=== PATIENT | male | born 1930 | race Caucasian/White ===

== ENCOUNTER 2017-02-16 10:15 | Inpatient (IN) | payer MEDICARE, OTHER ==
--- NOTE | 2017-02-16 11:21 | RAD ---
RADIOGRAPH RIGHT FOOT THREE VIEWS: Date: 02-16-17 History: 86-year-old male status post acute traumatic injury to the right foot. Comparison: None available. FINDINGS: There is a minimally displaced fracture at the medial aspect of the head of the first proximal phala nx. The vertical component extends to the first interphalangeal joint surface without step off. The medial component has a minimal, 1 mm step off at the cortical surface of the neck of the first proxi mal phalanx. There is no dislocation. There is a transversely oriented fracture at the proximal metaphysis of the fifth proximal phalanx, with minimal dorsal angulation of the distal fragment. Displaced tiny chip fracture fragments are de monstrated at the volar soft tissues adjacent to this fracture. There is no dislocation. No other fracture is identified. IMPRESSION: 1. Acute, traumatic, closed, essentially nondisplaced fracture at the medial aspect of the head of f irst proximal phalanx, with intraarticular component. 2. Slightly angulated, acute, traumatic, closed transverse fracture at proximal metadiaphysis of fif th proximal phalanx. POS: [facility]
[2017-02-16] MEDS ORDERED: Lidocaine 1% PF 5 ML VIAL ONE (11:32)
[2017-02-16 11:54] LABS: Troponin I 0.081 ng/mL (< 0.028)
[2017-02-16 12:01] LABS: Anion Gap 19 mmol/L (10-20); BUN (Urea Nitrogen) 98 mg/dL (8.4-25.7); Calc. Creatinine Clearance 0 mL/min (70-130); Calcium 9.8 mg/dL (7.8-10.44); Carbon Dioxide 32 mmol/L (23-31); Chloride 88 mmol/L (98-107); Estimated GFR-MDRD 12
[2017-02-16] MEDS ORDERED: Bacitracin Zinc 1 Packet ONE (12:07)
[2017-02-16 12:28] LABS: #Basophils 0.1 thou/uL (0.0-0.2); #Eosinphils 0.3 thou/uL (0.0-0.7); #Lymphocytes 2.2 thou/uL (1.20-3.40); #Monocytes 1.2 thou/uL (0.11-0.59); #Neutrophils 7.3 thou/uL (1.40-6.50); %Eosinophils 2.6 % (0.0-10.0); %Lymphocytes 19.9 % (21.0-51.0); Red Blood Cell (RBC) Count 5.84 mill/uL (4.70-6.10); White Blood Cell (WBC) Count 11.2 thou/uL (4.8-10.8)
--- NOTE | 2017-02-16 12:51 | CT ---
CT BRAIN WITHOUT CONTRAST: Date: 02/16/17 HISTORY: Hit head in a fall. Anticoagulation. COMPARISON: CT brain dated 05/01/16. FINDINGS: No acute territorial infarct or hemorrhage. No midline shift or mass effect. Mild atrophy. Paranasal sinuses and mastoids are clear. The calvarium is intact. Mandibular rami are intact. Calvarium is intact. Moderate degenerative disease of the temporomandibular joints. IMPRESSION: No acute post-traumatic sequelae. No hemorrhage. POS: [facility]
[2017-02-16 13:27] LABS: Bilirubin Negative (Negative); Blood, Urine Negative (Negative); Glucose, Urine (Dipstick) Negative (Negative); Ketone, Urine Negative (Negative); Nitrite Negative (Negative); Protein, Urine (Dipstick) Negative (Neg-Trace); Urobilinogen 0.2 mg/dL (0.2-1.0)
[2017-02-16 13:35] LABS: Bacteria/HPF 1+ HPF (None Seen); RBC/HPF None Seen HPF (0-3); Squamous Epithelial 0-3 HPF (0-3)
--- NOTE | 2017-02-16 13:46 | RAD ---
PORTABLE CHEST ONE VIEW: Date: 02-16-17 Time: 1:14 p.m. History: Right fifth toe injury, consistent with infection. Fall. Comparison: 12-23-16 FINDINGS: The heart size is borderline but stable. Left side AICD remains in place. The lungs are expanded wit hout focal areas of consolidation, pneumothorax or pleural effusions. IMPRESSION: No radiographic evidence of acute cardiopulmonary process. POS: [facility]
[2017-02-16] MEDS ORDERED: Sodium Chloride 0.9% 1,000 ML IV SCH ×2 (16:51→17:03)
[2017-02-16 16:58] VITALS: BMI 31.6
[2017-02-16] MEDS ORDERED: Ondansetron ODT 4 MG TAB PO PRN (17:03)
[2017-02-16] MEDS ORDERED: HYDROcodone/Acetaminophen 5/325 mg Tablet PO PRN (17:03)
[2017-02-16] MEDS ORDERED: Acetaminophen 325 MG TAB PO PRN (17:03)
[2017-02-16] MEDS ORDERED: Cyclobenzaprine 10 MG TAB PO PRN (17:03)
--- NOTE | 2017-02-16 17:57 | HP ---
DATE OF ADMISSION: 02/16/2017 PRIMARY CARE PHYSICIAN: Marcio Duncan M.D. CODE STATUS: FULL, advanced care planning was discussed with the patient. CHIEF COMPLAINT: Fall. HISTORY OF PRESENT ILLNESS: Mr. 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 He suddenly felt himself falling. He denied any presyncope or sync ope. No dizziness or vertigo and no dysequilibrium. He was able to get himself up and noticed that his toe on his right foot was sticking straight up and he had some laceration and bleeding. He hugo t to the emergency department for evaluation. There, he was found to have increased creatinine of 4 .61 above his baseline around 3, potassium was a little bit low at 3.0, white blood cell count w as 11.2 with a hematocrit of 17.9, and per the ER doctor, he was orthostatic during evaluation. He was subsequently sent here for further evaluation. He denies any fevers or chills, no chest pain or shortness of breath, no nausea or vomiting, no diar jelani or constipation. PAST MEDICAL HISTORY: 1. Hypopituitarism. 2. Past history of pulmonary embolus. 3. History of prostate cancer. 4. Recurrent urinary tract infections. 5. Chronic kidney disease 4, followed by Dr. Mckeon. 6. Hypothyroidism. 7. Hyperlipidemia. 8. Hypertension. 9. Chronic systolic congestive heart failure with ejection fraction around 40%. PAST SURGICAL HISTORY: Includes: 1. Radical prostatectomy. 2. Penile implant. 3. Transsphenoidal pituitary resection. 4. AICD placement. 5. PTCA. 6. Colonoscopy. 7. Prostate biopsy remotely. HOME MEDICATIONS: 1. VESIcare 5 mg daily. 2. Torsemide 100 mg daily. 3. BuSpar 7.5 mg p.o. b.i.d. 4. Coumadin 4 mg on Wednesday, Wednesday, and Wednesday, 5 mg every other day. 5. Testosterone 150 mg IM every 2 weeks. 6. Levothyroxine 100 mcg p.o. daily. 7. Hydrocortisone 20 mg p.o. q.a.m. and 10 mg p.o. q.p.m. 8. Coreg 3.125 mg p.o. b.i.d. 9. Tums as needed. 10. Tylenol as needed. 11. Metolazone 5 mg p.o. daily with his torsemide. 12. Ranitidine 150 mg p.o. b.i.d. ALLERGIES: CIPRO, IODINE, NITROFURANTOIN and SULFA. FAMILY HISTORY: Negative for clotting or bleeding disorder, no immune dysfunction. SOCIAL HISTORY: Negative for habits x3. He did have a past history of tobacco, but quit almost 50 years ago. PHYSICAL EXAMINATION: VITAL SIGNS: In the emergency department, temperature on arrival 97.8, pulse 80, blood pressure 124 /61, respiratory rate 20, satting 95% on room air. Pain was 7/10 on arrival. Orthostatic showed a blood pressure of 125/68 when lying with a pulse of 82, dropping to 105/60 when sitting and 97/50 wh en standing, so a total drop from lying to standing of systolic 28 over diastolic 18 points. Pulse remained the same, but he is paced. GENERAL: The patient is awake. He is alert. He is oriented x3. He is an obese white male, appear s to be in no acute distress. HEENT: Normocephalic, atraumatic. Pupils are equal and reactive bilaterally, mucous membranes are moist. There are no visible lesions and no thrush. LUNGS: Clear. He has no wheezing, rales or rhonchi. No prolonged expiratory phase. Adequate air movement and symmetrical chest excursion. CARDIOVASCULAR: He is regular, normal S1 and S2. I do not appreciate murmurs. ABDOMEN: Obese, it is nontender, nondistended with normoactive bowel sounds. There is no rebound, rigidity or guarding. EXTREMITIES: Show no cyanosis, no clubbing with trace bilateral lower extremity edema. His right f oot is currently in a walking boot and wrapped, it was not unwrapped for visualization. MUSCULOSKELETAL: Large joints are normal to inspection without any inflamed or erythematous joints. There are no palpable joint effusions. In the left lower back and the paraspinous musculature, he does have a 3 to 4 cm area of firmness either hematoma or spasm of the muscle. NEUROLOGIC: Cranial nerves II through XII to be grossly intact with no focal neurologic deficits an d 5/5 strength. SKIN: Otherwise, warm, moist and well perfused without rashes or lesions. LABORATORY DATA: Basic metabolic profile is normal except for potassium of 3.0 and a creatinine of 4.61 up from 3.26 back in 12/2016. Troponin I was slightly elevated at 0.081, hemoglobin is 17.9, h ematocrit of 55 and platelets of 119 with a white blood cell count of 11.2. Urinalysis shows 4 to 6 white blood cells with small leukocyte esterase and 1+ bacteria. IMAGING: Chest x-ray was unremarkable. Brain CT showed temporomandibular joint osteoarthritis and mild atrophy. Foot x-rays showed acute n ondisplaced fracture of the right medial first proximal phalanx and fifth proximal phalanx of the ri ght foot. ASSESSMENT AND PLAN: 1. Fall from same level: Likely an orthostatic episode. He denies feeling lightheaded or like he was going to pass out, and denied losing consciousness. He did have a significant drop in blood pre ssure when changing position. He was micturating at that time, so certainly could be a labile blood pressure episode. We will lightly hydrate him overnight, we will hold his diuretics tonight. We w ill check orthostatic with blood pressures tonight and in the morning. 2. Acute kidney injury, on chronic kidney disease 4: Creatinine is 4.61. Potassium is low, we regina l not replace that in the setting. We will ask Dr. Mckeon to see the patient in the morning, I nam pect with light hydration this should improve and may just be over diuresis. 3. Hypopituitarism: The patient takes hydrocortisone replacement: Certainly it could be adrenal i nsufficient leading to autonomic instability. We will continue his hydrocortisone. We will continu e his thyroid replacement. 4. History of hypertension: We will hold his Coreg. We will hold his diuretics for now. We will reevaluate in the morning. 5. Hyperlipidemia: Not currently on therapy. 6. Gastroesophageal reflux disease, on Zantac. We will replace with famotidine for now. 7. Recurrent urinary tract infection. The patient does have some slight pyuria with a small amount of bacteria. We will follow up on the culture. I do think this is related.
[2017-02-16] MEDS: Carvedilol 3.125 MG TAB PO SCH (20:41)
[2017-02-16] MEDS: HYDROcodone/Acetaminophen 10/325 mg Tablet PO PRN (20:56)
[2017-02-17] MEDS: HYDROcodone/Acetaminophen 10/325 mg Tablet PO PRN ×2 (01:25→08:44)
[2017-02-17 04:52] LABS: #Eosinphils 0.3 thou/uL (0.0-0.7); #Lymphocytes 1.8 thou/uL (1.20-3.40); #Neutrophils 5.1 thou/uL (1.40-6.50); %Basophils 0.5 % (0.0-1.0); %Lymphocytes 22.1 % (21.0-51.0); %Monocytes 11.7 % (0.0-10.0); Hematocrit 51.6 % (42.0-52.0); Mean Platelet Volume 9.3 fL (7.4-10.4); Red Blood Cell (RBC) Count 5.41 mill/uL (4.70-6.10); White Blood Cell (WBC) Count 8.2 thou/uL (4.8-10.8)
[2017-02-17 05:01] LABS: Anion Gap 14 mmol/L (10-20); BUN (Urea Nitrogen) 99 mg/dL (8.4-25.7); Calc. Creatinine Clearance 17 mL/min (70-130); Carbon Dioxide 33 mmol/L (23-31); Chloride 90 mmol/L (98-107); Estimated GFR-MDRD 14
[2017-02-17] MEDS: Levothyroxine Sodium 100 MCG TAB PO SCH (05:38)
[2017-02-17] MEDS: Carvedilol 3.125 MG TAB PO SCH (08:44)
[2017-02-17] MEDS: Hydrocortisone 10 mg Tablet PO SCH ×2 (08:44→16:46)
[2017-02-17] MEDS ORDERED: FLU VACC TS2017-18 (>65YR) 0.5 ML SYRINGE IM ONE (09:00)
--- NOTE | 2017-02-17 10:07 | PDOC.PN ---
- Subjective Encounter Start Date: 02/17/17 Encounter Start Time: 09:00 Pt seen and examined. complaint of left lower paraspinal pain. hasnt asked for muscle relaxers, so i encouraged him to try. No F/C, no N/V/D/C, no syncope or presyncope. Tele reviewed, no arrhytmias noted. Pt was orthostatic on admit. this morning has resolved. pain to right foot well controlled. 10 point ROS performed and neg for all systems except as above - Objective Resuscitation Status: Resuscitation Status FULL:Full Resuscitation MAR Reviewed: Yes Vital Signs & Weight: Vital Signs (12 hours) Temp Pulse Resp BP BP BP BP 02/17/17 08:06 96.6 F L 81 20 110/55 L 106/55 L 119/59 L 02/17/17 04:00 97.5 F L 81 20 123/61 02/17/17 00:00 97.8 F 80 16 101/51 L Pulse Ox 02/17/17 08:06 94 L 02/17/17 04:00 94 L 02/17/17 00:00 91 L Weight Weight 208 lb 14.4 oz I&O: 02/16/17 02/17/17 02/18/17 06:59 06:59 06:59 Intake Total 1360 Output Total 1025 Balance 335 Result Diagrams: 02/17/17 04:37 02/17/17 04:37 Radiology Reviewed by me: Yes EKG Reviewed by me: Yes Phys Exam - Physical Examination Constitutional: NAD HEENT: PERRLA, moist MMs, sclera anicteric, oral pharynx no lesions Neck: no nodes, no JVD, supple, full ROM Respiratory: no wheezing, no rales, no rhonchi, clear to auscultation bilateral Cardiovascular: RRR, no significant murmur, no rub Gastrointestinal: soft, non-tender, no distention, positive bowel sounds Musculoskeletal: pulses present, edema present left lower paraspinal muscles in a palpable 'knot' Neurological: non-focal, normal sensation, moves all 4 limbs Lymphatic: no nodes Psychiatric: normal affect, A&O x 3 Skin: no rash, normal turgor, cap refill <2 seconds Deviation from normal: right foot wrapped, not examined. Dx/Plan (1) Fall on same level as cause of accidental injury Code(s): W18.30XA - FALL ON SAME LEVEL, UNSPECIFIED, INITIAL ENCOUNTER Status : Acute (2) Fracture, phalanx, foot Code(s): S92.919A - UNSP FRACTURE OF UNSP TOE(S), INIT FOR CLOS FX Status: Acute Qualifiers: Toe: great toe Fracture type: open Phalanx: proximal Fracture alignment : nondisplaced Laterality: right Fracture healing: with routine healing Comment: right hallux and 5th toe reduced in ER, laceration closed. (3) Orthostasis Code(s): I95.1 - ORTHOSTATIC HYPOTENSION Status: Resolved Comment: BPs this morning stable. 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 I suspect due to over-diuresis. Diuretics on hold. I have asked his core shaper nd buttonhole tacker to visit to make medication adjustment recommendations. (6) Anticoagulant long-term use Code(s): Z79.01 - SHELTER (CURRENT) USE OF ANTICOAGULANTS Status: Chronic (7) Chronic diastolic (congestive) heart failure Code(s): I50.32 - CHRONIC DIASTOLIC (CONGESTIVE) HEART FAILURE Status: Chronic Comment: off of IVfluids and diuretics at present. (8) History of pulmonary embolism Code(s): Z86.711 - PERSONAL HISTORY OF PULMONARY EMBOLISM Status: Chronic (9) Hypertension Code(s): I10 - ESSENTIAL (PRIMARY) HYPERTENSION Status: Chronic Qualifiers: Hypertension type: essential hypertension Qualified Code(s): I10 - Essential (primary) hypertension (10) Hypothyroidism Code(s): E03.9 - HYPOTHYROIDISM, UNSPECIFIED Status: Chronic Qualifiers: Hypothyroidism type: postoperative Qualified Code(s): E89.0 - Postprocedural hypothyroidism - Plan cont current plan of care, PT/OT * .
--- NOTE | 2017-02-17 14:07 | CON ---
DATE OF CONSULTATION: 02/17/2017 REASON FOR CONSULTATION: Syncope. HISTORY OF PRESENT ILLNESS: Mr. Villa is a pleasant 86-year-old gentleman, a patient of Dr. Tee Rodríguez. He has a history of nonischemic cardiomyopathy, also with pacemaker defibrillator implanted in the past. He was admitted in the hospital 2 days ago. He had gotten up to stand at home to urinate and lost c onsciousness. He was brought here to the emergency room, he has been in the hospital since then. A lso, it is noted that his renal function has worsened. PAST MEDICAL HISTORY: 1. Nonischemic cardiomyopathy. 2. Chronic kidney disease stage 4. 3. Prostate cancer. 4. Hypothyroidism. 5. Hyperlipidemia. PAST SURGICAL HISTORY: 1. Radical prostatectomy. 2. Defibrillator implantation. HOME MEDICATIONS: 1. Torsemide. 2. BuSpar. 3. Coumadin. 4. Testosterone. 5. Hydrocortisone 6. Coreg 3.125 mg p.o. twice a day. 7. Metolazone. ALLERGIES: CIPRO and IODINE. FAMILY HISTORY: Negative for heart disease at a young age. SOCIAL HISTORY: No alcohol or tobacco, quit tobacco about 50 years ago. PHYSICAL EXAMINATION: GENERAL: This is a pleasant elderly gentleman. VITAL SIGNS: Blood pressure is still low, 106/55 standing 119/59 supine. HEENT: Eyes; sclerae nonicteric. Mouth mucous membranes moist. NECK: Supple, no lymphadenopathy. LUNGS: Clear, no wheezing, rales or rhonchi. CARDIAC: Normal S1, normal S2. There is no murmur, rub or gallop. ABDOMEN: Obese, nontender, no hepatosplenomegaly. EXTREMITIES: Warm, dry, no clubbing, no cyanosis. There is only very mild edema. Peripheral pulse s are present. PERTINENT LABORATORY AND X-RAY FINDINGS: Hemoglobin 17.2, potassium is 3.1, creatinine went from 4. 6 to 4.18. Troponin 0.081. The EKG reveals an atrial and ventricular paced rhythm. Right bundle branch block pattern in V1 com patible with biventricular pacing. ASSESSMENT: 1. Syncopal episode, probably with orthostatic hypotension. 2. Stage 4 renal failure. 3. Congestive heart failure, systolic, chronic, appears stable. PLAN: 1. I agree with stopping carvedilol for now. 2. Repeat echocardiogram. 3. Agree with holding diuretic therapy as he is very close to dialysis levels. 4. Further recommendations based on clinical course. 5. Dr. Rodríguez will resume care tomorrow.
--- NOTE | 2017-02-17 15:38 | CON ---
DATE OF CONSULTATION: 02/17/2017 PRIMARY CARE PHYSICIAN: Dr. Marcio Duncan. PRIMARY REINFORCING ROD LAYER: Dr. Mckeon PRIMARY STEEL DIE PRINTER: Dr. Chelly Rodríguez. REASON FOR CARDIOLOGY CONSULTATION: Orthostatic episode, on multiple cardiac medications. HISTORY OF PRESENT ILLNESS: Mr. Villa is 86 years old male with a significant history of severe cardiomyopathy with biventricular automated implantable cardioverter-defibrillator, presented to the ER yesterday, on 2016, due to status post fall and fracture and laceration on his left fifth toe. Yesterday, when he was in bathroom using a urinal, he lost balance and he fell. The patient had 5 stitches at the ER due to laceration from the fall. He denies any dizziness, lightheadedness, or blackout at that time. Prior to that episode patient denies any abnormal vital signs or any cardiac complaints. During initial cardiology assessment, patient denies chest pain, dizziness, lightheadedness, or any other cardiac complaints. The patient's last echocardiogram was in 02/2016, which showed EF of 55%-60% with grade 1 diastolic dysfunction. Patient has a significant history of severe cardiomyopathy with biventricular automated implantable cardioverter- defibrillator placement. Patient underwent cardiac catheterization in 2014, revealed mild coronary artery disease with minimal plaque formation in the left circumflex and a mild plaque formation in the proximal right coronary artery. The patient has been seen by Dr. Mckeon for chronic kidney disease. He has a significant history of edema in the lower extremities. He had been wearing compression stockings. PAST MEDICAL HISTORY: 1. Dilated cardiomyopathy with status post biventricular automated implantable cardioverter-defibrillator placement. 2. Chronic diastolic heart failure. 3. Hypothyroidism. 4. Prostate cancer. 5. Hypopituitarism with chronic steroid treatment. 6. Chronic kidney disease, stage 4. 7. Left bundle branch block. 8. Inducible ventricular tachycardia. 9. Ventricular dyssynchrony. 10. Diverticulitis. 11. 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 12. Hyperlipidemia. 13. Hypertension. 14. History of bilateral pulmonary embolism with Coumadin. 15. Mild coronary artery disease. 16. History of tobacco abuse. He quit about 50 years ago. PAST SURGICAL HISTORY: 1. Total prostatectomy. 2. Cataract surgery. 3. Tonsillectomy. 4. 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 5. Status post biventricular automated implantable cardioverter-defibrillator placement. FAMILY HISTORY: His brother due to myocardial infarction. SOCIAL HISTORY: Patient is . No children. He lives by himself. He quit smoking about 50 years ago. He denies alcohol or illicit drug abuse. 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 ALLERGIES: He is allergic to CIPRO, IODINE, SULFA, AND MACRODANTIN. CURRENT MEDICATIONS: The patient's home medications, buspirone 7.5 mg 3 times a day, VESIcare 5 mg once a day, ranitidine 75 mg 1 tablet twice a day, Synthroid 100 mcg once a day, Symbicort 160/4.5 mcg 2 puffs twice a day, Coumadin once a day, Coreg 3.125 mg twice a day, hydrocortisone 10 mg 2 tablets in the morning and 1 tablet in the evening, metolazone 5 mg once a day 30 minutes prior to Lasix administration, Lasix 40 mg twice a day, nitroglycerin 0.4 mg as needed. REVIEW OF SYSTEMS: The following complete review of systems was negative, unless otherwise mentioned in the HPI or below. Constitutional: Weight loss or gain, sense of well being, ability to conduct usual activities, exercise tolerance. Skin: Rash, itching, change in hair growth or loss, nail change. Eyes: Vision change, double vision, tearing, blind spots or pain. HENT: Headache, vertigo, lightheadedness, nose bleeding, cold, nose oral obstruction or discharge, dental difficulty, gingival bleeding, dentures, neck stiffness, pain, tenderness, mass in the thyroid or other areas. Cardiovascular : Precordial pain, substernal distress, palpitations, syncope, dyspnea on exertion, orthopnea, nocturnal dyspnea, cyanosis, heart murmur, varicosis claudication. Respiratory: Pain, shortness of breath, wheezing, stridor, cough , hemoptysis, fever, or night sweats. Gastrointestinal: Poor appetite, dysphagia, indigestion, abdominal pain, heartburn, eructation, nausea, vomiting. Genitourinary: Urgency, frequency, dysuria, nocturia, hematuria, polyuria, oliguria, unusual color of urine. Musculoskeletal: Pain, swelling, redness or heat of muscle or joint, limitation of motion, muscular weakness, atrophy, cramps. Neurologic: Seizure, convulsion, paralysis, tremor, incoordination, difficulty with memory of speech. Psychiatric: Emotional problem, anxiety, depression, previous psychiatric care, unusual perception, hallucination. PHYSICAL EXAMINATION: VITAL SIGNS: Blood pressure in the morning supine 119/56, sitting 110/55, and standing 106/55, heart rate 81, respiratory rate 20, temperature 97.4, and O2 sat in 94% with room air. GENERAL: Well-developed, well-nourished, without any acute distress. HEAD: Normocephalic, atraumatic. EYES: Extraocular muscle movements are intact. ENT: Oral and nasal mucosa are moist without lesion. NECK: No JVD. Neck is supple, normal range of motion. LUNGS: Clear to auscultate, but diminished in the bases bilaterally. No wheezing, rales, or rhonchi noted. CARDIOVASCULAR: Regular rate and rhythm. Normal S1, S2. There are no S3 or S4. No significant murmur, hives, thrill, bruits, or rub noted. EXTREMITIES: There are 2+ pulses in bilateral dorsal pedis, posterior tibial, popliteal. Carotid pulses are present without bruits or thrill. There are 2+ pitting edema on his right foot and 3+ pitting edema in his left ankle and foot. ABDOMEN: Soft, nontender, or mass to palpate. Bowel sounds are present. MUSCULOSKELETAL: Able to move all extremities. No calf tenderness. SKIN: There are 5 stitches on his right fifth toe. He has mild oozing and open to air, and he has multiple bruises on bilateral forearms. NEUROLOGIC: Alert, oriented x4, awake. Normal affect and nonfocal. PSYCHIATRIC: Mood and affect are normal. EKG shows AV pacing, heart rate 80s; however, telemetry record revealed several seconds of abnormal beats of pacemaker failure to sense. At that time, patient was asymptomatic. LABORATORY DATA: Lab this morning, WBC 8.2, hemoglobin 17.2, hematocrit 51.6, platelets 121. Chemistry: Sodium 134; potassium 3.1; BUN 99; creatinine 4.18, which was 4.61 yesterday. CK-MB of 4.7, troponin 0.081 and 0.070. The patient' s foot x-ray revealed acute traumatic closed nondisplaced fracture at medial aspect of the head of the first proximal phalanx with intraarticular component and closed transverse fracture at proximal metaphysis of his proximal phalanx on the right foot. CT of the brain shows no acute post-traumatic sequelae and no hemorrhage. Chest x-ray revealed no acute or cardiopulmonary process. IMPRESSION AND PLAN: 1. Orthostatic hypotension. Blood pressure in three position were stable this morning. The patient's diuretics on hold at this moment. He is still on the Coreg twice a day. We would like to continue to monitor with orthostatic blood pressure readings. 2. History of status post fall and fracture on the right foot. At this moment , the patient's condition is stable with p.r.n. pain medication, which was managed by primary care doctor. 3. Severe cardiomyopathy. Patient's condition is stable at this time. We would like to resume patient's diuretics as appropriate once patient's blood pressure is stable. 4. Status post automated implantable cardioverter-defibrillator placement. Due to abnormal telemetry record, we would like to request his automated implantable cardioverter-defibrillator interrogation today. 5. History of bilateral pulmonary embolism. At this moment, the patient's Coumadin is on hold due to s/p of fall. 6. Hypothyroidism. The patient's hydrocortisone was resumed with home dose. 7. Chronic kidney disease, stage 4. Nephrology consult was ordered by the primary care doctor. 8. Chronic edema in his lower extremities. Instructed the patient start wearing compression stockings or raise his lower extremities while he is resting. Thank you very much for allowing Cardiology Service to participate in the care of this patient. We will follow along with the patient's care team and make further recommendations as appropriate. KEEGAN
[2017-02-17 16:36] LABS: Prothrombin Time 20.4 SEC (12.0-14.7)
[2017-02-17] MEDS ORDERED: Warfarin Sodium 2 MG TAB PO SCH (17:45)
[2017-02-17] MEDS ORDERED: Warfarin Sodium 5 MG TAB PO SCH (17:45)
[2017-02-17] MEDS: TROSPIUM 20 MG TABLET PO SCH (20:31)
[2017-02-17] MEDS: busPIRone HCl 5 MG TAB PO SCH (20:31)
[2017-02-18 05:04] LABS: #Eosinphils 0.2 thou/uL (0.0-0.7); #Lymphocytes 1.4 thou/uL (1.20-3.40); #Monocytes 0.9 thou/uL (0.11-0.59); #Neutrophils 6.7 thou/uL (1.40-6.50); %Basophils 0.5 % (0.0-1.0); %Eosinophils 1.9 % (0.0-10.0); %Lymphocytes 15.4 % (21.0-51.0); %Monocytes 9.3 % (0.0-10.0); Hematocrit 52.5 % (42.0-52.0); Mean Platelet Volume 9.7 fL (7.4-10.4); Red Blood Cell (RBC) Count 5.53 mill/uL (4.70-6.10); White Blood Cell (WBC) Count 9.2 thou/uL (4.8-10.8)
[2017-02-18 05:36] LABS: Anion Gap 11 mmol/L (10-20); BUN (Urea Nitrogen) 80 mg/dL (8.4-25.7); Calc. Creatinine Clearance 21 mL/min (70-130); Calcium 9.3 mg/dL (7.8-10.44); Carbon Dioxide 35 mmol/L (23-31); Chloride 90 mmol/L (98-107); Estimated GFR-MDRD 18; Magnesium 2.7 mg/dL (1.6-2.6)
[2017-02-18] MEDS: Levothyroxine Sodium 100 MCG TAB PO SCH (05:58)
[2017-02-18] MEDS: busPIRone HCl 5 MG TAB PO SCH ×2 (09:29→15:50)
[2017-02-18] MEDS: TROSPIUM 20 MG TABLET PO SCH (09:30)
[2017-02-18] MEDS: Hydrocortisone 10 mg Tablet PO SCH ×2 (09:30→15:50)
--- NOTE | 2017-02-18 12:48 | CON ---
DATE OF CONSULTATION: 02/18/2017 NEPHROLOGY CONSULTATION REASON FOR CONSULTATION: Elevated creatinine. HISTORY OF PRESENTING ILLNESS: This is a very pleasant 86-year-old gentleman who was admitted for o rthostatic hypotension and falls. The patient had a creatinine of 4.6 on admission with hypokalemia which has improved to 3.3 after diuretics. The patient denies any nausea, vomiting or chest pain. PAST MEDICAL HISTORY: Significant for hypopituitarism, pulmonary embolism, prostate cancer, recurre nt UTI, stage 4 chronic kidney disease, hypothyroidism, hyperlipidemia, hypertension, congestive hea rt failure, radical prostatectomy, penile implant, AICD, PTCA, and colonoscopy. HOME MEDICATIONS: List reviewed. HOSPITAL MEDICATIONS: List reviewed. ALLERGIES: Reviewed. REVIEW OF SYSTEMS: A 15-point review of systems was performed and was negative except for positives noted above. GENERAL: Weakness- HEAD: Headache- NECK: No swelling or lumps. NOSE: No epistaxis or discharge. EYES: No diplopia or pain. RESPIRATORY: Dyspnea- CARDIOVASCULAR: Chest pain- GASTROINTESTINAL: Nausea- /TRANSFER AGENT: Hematuria- MUSCULOSKELETAL: No joint pain. NEUROPSYCHIATIC SYSTEMS: No suicidal ideation. No ideation. SKIN: Denies any rash or ulcer. CONSTITUTIONAL: No fever or chills. PHYSICAL EXAMINATION: GENERAL: On examination, patient is awake, alert. VITAL SIGNS: Afebrile, pulse 75, breathing at 16, blood pressure 130/60. GENERAL APPEARANCE AND MENTAL STATUS: Fair. HEAD/NECK: Normocephalic. Atraumatic. EYES: EOMI. No deformity. EARS: Clear. No ulcers. NOSE: Intact. No lesions. MOUTH: Clear. No discharge. THROAT: Clear. No exudate. LUNGS: Clear. No crackles. CARDIAC: S1, S2. No rub. ABDOMEN: Benign. BS+. GENITALIA/RECTUM: Shabazz absent. BACK/EXTREMITIES: Lower extremities showed trace edema + Ulcer- NEUROLOGICAL: Alert and motor intact. SKIN: Rash- Bruise- LYMPHATICS: Edema- Ulcer- LABORATORY DATA: Creatinine is 3.3 and potassium 3.0. ASSESSMENT AND RECOMMENDATIONS: 1. Acute kidney injury with chronic kidney disease due to cardiorenal syndrome. Agree with current management and plan. 2. Hypokalemia. Recommend potassium replacement. 3. Hyponatremia, stable. No indication for dialysis.
--- NOTE | 2017-02-18 13:27 | DIS ---
PRIMARY CARE PHYSICIAN: Dr. Duncan. DATE OF ADMISSION: 02/16/2017 DATE OF DISCHARGE: 02/18/2017 DISCHARGE DIAGNOSES: 1. Orthostatic hypotension. 2. Syncope secondary to orthostasis. 3. 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 4. Fall from same level with injury to right foot. 5. Proximal phalanx right hallux, proximal phalanx fifth toe of right foot after fall. 6. Hypertension, essential. 7. Hypothyroidism. CONSULTATIONS: 1. Cardiology, Dr. Bob. 2. Nephrology, Dr. Og for Dr. Mckeon. PROCEDURES: Echocardiogram 02/17/2017 which showed ejection fraction of 35%-40%, mildly increased l eft ventricular size, diastolic dysfunction. HISTORY AND PHYSICAL: Mr. Villa is an 86-year-old gentleman, who is brought to the emergency dep artment for evaluation after standing up to urinate into a urinal and found himself falling on the f noemi. He denied any loss of consciousness or presyncope; however, further throughout his hospital s yossi, did finally admit that he may have felt a little lightheaded. In the emergency department, his creatinine was found to be 4.61 and potassium of 3.0, and orthostat ic. Patient was transferred here as a direct admit from [facility] Emergency Department for further workup. HOSPITAL COURSE: The patient was seen and examined on arrival. He was orthostatic on arrival, star clemente on IV fluids 70 mL per hour for 8 hours for a total of around 500 mL. His diuretics were held a nd his Coreg was held. He was watched on the monitor. Serial cardiac biomarkers were ordered, and the patient was watched overnight. By 02/17/2017, he had no evidence of arrhythmia, repeat orthostatics were negative for orthostatic h ypotension, he was continued on his home medications for his hypopituitarism and creatinine was impr sabiha from 4.61, down to 4.18. He was seen by Dr. Bob of Cardiology, who agreed in holding his medicines and adjusting his diure tics. A pacemaker interrogation was interpreted and found to be functioning normally. Nephrology had been consulted, but has not seen the patient yet, although his kidney function was im proving. By 02/18/2017, patient was still not seen by Nephrology. I spoke with Dr. Og, who is diamond sander for Dr. Mckeon and after looking to the issue the [facility]. Dr. Og saw the patient later in the day and felt the patient wa s improved and stable for discharge. Overnight 02/17/2017 to 02/18/2017, the patient was feeling mu ch better. He is feeling weak, but able to get out. He denied any orthostatic presyncope or syncop e. Denies any dizziness. He was afebrile. His creatinine improved down to 3.31. His metolazone w as cut to every other day and his torsemide was continued daily for Nephrology recommendations. Home health care was set up for physical therapy, occupational therapy, wound care, and the patient was stable for discharge. PHYSICAL EXAMINATION: The patient was seen and examined on the date of discharge. Discharge plan a nd disposition were discussed with the patient face to face at the bedside with the nurse present in the room. DISCHARGE MEDICATIONS: 1. Carvedilol 3.125 mg p.o. b.i.d. 2. Hydrocortisone 10 mg p.o. at bedtime, 20 mg p.o. q. a.m. 3. Levothyroxine 100 mcg daily. 4. Metolazone 5 mg every other day. 5. Nitroglycerin 0.4 mg sublingual every 5 minutes p.r.n. chest pain. 6. Ranitidine 150 mg p.o. b.i.d. 7. VESIcare 5 mg daily. 8. Torsemide 100 mg daily. 9. Coumadin 5 mg on Wednesday, , Wednesday, Wednesday, and 4 mg Wednesday, Wednesday, and Wednesday. 10. Buspirone 7.5 mg p.o. t.i.d. FOLLOWUP APPOINTMENTS: 1. Primary care physician within a week. 2. Cardiology per their clinic. 3. Nephrology per their clinic. 4. Home care when they schedule a visit. PENDING STUDIES: None. DISPOSITION: The patient will be discharged home with home health care via private vehicle. DISCHARGE CONDITION: Good.
--- NOTE | 2017-02-18 14:14 | PDOC.CTH ---
<Mandie Prajapati - Last Filed: 02/18/17 14:10> Cardiology Progress Note - Subjective The pt was seen and examined. No overnight events. No cardiac complaints. The pt denied any dizziness or lightheadedness when he stands up - Objective Vital Signs Temp Pulse Resp BP BP BP BP 02/18/17 11:40 97.7 F 82 18 113/58 L 02/18/17 08:00 98.0 F 86 18 132/67 124/59 L 134/63 02/18/17 04:00 97.9 F 87 18 130/60 Pulse Ox 02/18/17 11:40 92 L 02/18/17 08:00 93 L 02/18/17 04:00 95 Weight 211 lb 02/17/17 02/18/17 02/19/17 06:59 06:59 06:59 Intake Total 1360 1800 Output Total 1025 2450 Balance 335 -650 - Physical Examination General/Neuro: alert & oriented x3 Neck: no JVD present Lungs: CTA Heart: RRR Abdomen: soft Extremities: other: (edema Lt> Rt lower exts.) - Telemetry Telemetry Rhythm: AV paced - Labs Result Diagrams: 02/18/17 04:05 02/18/17 04:05 Troponin/CKMB CK-MB (CK-2) 4.7 ng/mL (0-6.6) 02/16/17 11:30 Troponin I 0.070 ng/mL (< 0.028) H 02/16/17 14:33 - Assessment/Plan 1. orthostatic hypotension - 2. Acute on CKD stage 4 - 3. Severe CMY - with AICD placement; cont. monitor on tele 3. Chronic diastolic HF - stable; Diuretic is on hold due to orthostatic hypotension 4. Fx and laceration on Lt 5th toe - stable 5. HTN - stable with current medication 6. Hx of PEs - His Coumadin was resumed from yesterday; INR check daily 7. 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 - On hydrocortisone MRA reviewed Review of Systems - Review of Systems Constitutional: reports: no symptoms reported EENTM: reports: no symptoms reported Respiratory: reports: no symptoms reported Cardiac (ROS): reports: no symptoms reported ABD/GI: reports: no symptoms reported : reports: no symptoms reported Musculoskeletal: reports: no symptoms reported <Dennis Rodríguez - Last Filed: 02/18/17 17:14> Cardiology Progress Note - Objective Vital Signs Temp Pulse Resp BP BP BP BP 02/18/17 16:20 98.1 F 80 20 133/63 02/18/17 11:40 97.7 F 82 18 113/58 L 02/18/17 08:00 98.0 F 86 18 132/67 124/59 L 134/63 Pulse Ox 02/18/17 16:20 94 L 02/18/17 11:40 92 L 02/18/17 08:00 93 L Weight 211 lb 02/17/17 02/18/17 02/19/17 06:59 06:59 06:59 Intake Total 1360 1800 Output Total 1025 2450 Balance 335 -650 - Labs Result Diagrams: 02/18/17 04:05 02/18/17 04:05 Troponin/CKMB CK-MB (CK-2) 4.7 ng/mL (0-6.6) 02/16/17 11:30 Troponin I 0.070 ng/mL (< 0.028) H 02/16/17 14:33 - Assessment/Plan Pt. seen and eval. I agree with the A/P by the BANKRUPTCY MANAGER. He continues to have chronic bilat. lower leg edema. No other cardiac complaints.
[2017-02-18 16:53] VITALS: BP 133/63; TEMP 98.1
[2017-02-18] MEDS ORDERED: Warfarin Sodium 5 MG TAB PO SCH (17:00)
[2017-02-18] MEDS ORDERED: Warfarin Sodium 2 MG TAB PO SCH (17:00)
== END 2017-02-18 17:40 | disposition home health service (06) | DRG 312 ==
LOC: SCSER 10:15 → 2NO 13:53
PROVIDERS: ADMIT Internal Medicine Infectious Disease; ATTEND Internal Medicine Infectious Disease
PROC: 0HQMXZZ Repair Right Foot Skin, External Approach (ICD-10-PCS; principal; 2017-02-16)
DX: I95.1 Orthostatic hypotension (principal); I47.2 Ventricular tachycardia; N18.4 Chronic kidney disease, stage 4 (severe); I42.0 Dilated cardiomyopathy; N17.9 Acute kidney failure, unspecified; E23.0 Hypopituitarism; I13.0 Hypertensive heart and chronic kidney disease with heart failure and stage 1 through stage 4 chronic kidney disease, or unspecified chronic kidney disease; I50.42 Chronic combined systolic (congestive) and diastolic (congestive) heart failure; E86.0 Dehydration; I48.2 Chronic atrial fibrillation; E87.1 Hypo-osmolality and hyponatremia; S92.911A Unspecified fracture of right toe(s), initial encounter for closed fracture; W18.30XA Fall on same level, unspecified, initial encounter; Y92.012 Bathroom of single-family (private) house as the place of occurrence of the external cause; Z86.711 Personal history of pulmonary embolism; Z85.46 Personal history of malignant neoplasm of prostate; E03.9 Hypothyroidism, unspecified; E78.5 Hyperlipidemia, unspecified; Z90.79 Acquired absence of other genital organ(s); Z96.0 Presence of urogenital implants; Z95.810 Presence of automatic (implantable) cardiac defibrillator; Z79.01 Long term (current) use of anticoagulants; Z88.2 Allergy status to sulfonamides; Z88.8 Allergy status to other drugs, medicaments and biological substances; Z88.1 Allergy status to other antibiotic agents; Z91.041 Radiographic dye allergy status; E66.9 Obesity, unspecified; Z68.32 Body mass index [BMI] 32.0-32.9, adult; K21.9 Gastro-esophageal reflux disease without esophagitis; E87.6 Hypokalemia; I25.10 Atherosclerotic heart disease of native coronary artery without angina pectoris; Z79.52 Long term (current) use of systemic steroids; I44.7 Left bundle-branch block, unspecified; Z87.891 Personal history of nicotine dependence; S92.411B Displaced fracture of proximal phalanx of right great toe, initial encounter for open fracture
CPT/HCPCS: 36415; 70450; 71010; 80048; 81003; 81015; 82553; 83735; 84484; 85025; 85610; 87086; 90471; 90682; 90732; 93005; 93306; G0008; G0009; G8978-GP-CL; G8979-GP-CJ; J2001; Q2036

== ENCOUNTER 2017-07-13 17:34 | Inpatient (IN) | payer MEDICARE, OTHER ==
[2017-07-13 18:16] LABS: Hemoglobin 15.6 g/dL (14.0-18.0); Mean Corpuscular HGB CONC 34.1 g/dL (32.0-36.0); Mean Corpuscular Hemoglobin 31.7 pg (27.0-31.0); Mean Corpuscular Volume 92.9 fl (80.0-94.0); Mean Platelet Volume 8.7 fL (7.4-10.4); Platelet Count 146 thou/uL (130-400); RBC Distribution Width 12.9 % (11.5-14.5); Red Blood Cell (RBC) Count 4.92 mill/uL (4.70-6.10); White Blood Cell (WBC) Count 7.9 thou/uL (4.8-10.8)
[2017-07-13 18:36] LABS: ALT (SGPT) 8 U/L (8-55); AST (SGOT) 11 U/L (5-34); Albumin 3.7 g/dL (3.4-4.8); Alkaline Phosphatase 76 U/L (40-150); Anion Gap 17 mmol/L (10-20); BUN (Urea Nitrogen) 88 mg/dL (8.4-25.7); Bilirubin, Total 1.2 mg/dL (0.2-1.2); CK (CPK) 247 U/L (30-200); Calc. Creatinine Clearance 0 mL/min (70-130); Calcium 8.8 mg/dL (7.8-10.44); Carbon Dioxide 32 mmol/L (23-31); Chloride 83 mmol/L (98-107); Estimated GFR-MDRD 9; Globulin 3.2 g/dL (2.4-3.5); Glucose 116 mg/dL (83-110); Lymphocytes 24 % (21-51); MDiff Complete? YES; Monocytes 11 % (0-10); Neutrophil 65 % (42-75); PLT Morphology Comment Appears Adequate; Protein, Total 6.9 g/dL (5.8-8.1); Sodium 129 mmol/L (136-145)
[2017-07-13 18:41] LABS: CKMB 3.7 ng/mL (0-6.6)
[2017-07-13 18:47] LABS: Potassium 2.8 mmol/L (3.5-5.1)
[2017-07-13] MEDS ORDERED: Potassium Bicarbonate/Cit Ac 25 MEQ TAB ONE (18:50)
[2017-07-13 18:57] LABS: Bilirubin Negative (Negative); Blood, Urine Negative (Negative); Clarity CLEAR (Clear); Glucose, Urine (Dipstick) Negative (Negative); Leukocyte Negative (Negative); Nitrite Negative (Negative); Protein, Urine (Dipstick) Negative (Neg-Trace); Specific Gravity, Urine 1.007 (1.002-1.036); Urobilinogen 0.2 mg/dL (0.2-1.0); pH, Urine 6.5 (5.0-9.0)
--- NOTE | 2017-07-13 20:17 | RAD ---
CHEST ONE VIEW 07/13/17 HISTORY: Weakness. COMPARISON: Chest one view 02/16/17. FINDINGS: The lungs are clear. No pneumothorax or effusion. The cardiac silhouette and mediastinal contours are similar to the comparison examination. An AICD/pacer is in place in good position. IMPRESSION: No acute intrathoracic abnormality nor significant change. POS: [facility]
[2017-07-13 21:21] LABS: Troponin I 0.128 ng/mL (< 0.028)
[2017-07-13] MEDS ORDERED: Acetaminophen 325 MG TAB PO PRN (21:25)
[2017-07-13] MEDS ORDERED: Ondansetron ODT 4 MG TAB SL PRN (21:25)
[2017-07-13] MEDS ORDERED: Ondansetron HCl/PF 4 MG/2 ML Vial IVP PRN (21:25)
[2017-07-13] MEDS ORDERED: Lactated Ringer's 1,000 ML IV SCH (21:30)
--- NOTE | 2017-07-13 22:49 | CT ---
CT CHEST WITHOUT CONTRAST CT ABDOMEN WITHOUT CONTRAST CT PELVIS WITHOUT CONTRAST 07/13/17 HISTORY: Back pain. COMPARISON: CT abdomen and pelvis 03/01/16. FINDINGS: The aorta is nonaneurysmal. No evidence of dissection. No intracranial hematoma. The gallbladder is m ildly distended with cholelithiasis. There is fatty atrophy of the pancreas. No compression fracture of the spine. Multilevel degenerative changes of the lower lumbar spine with neural foramina and spin al narrow narrowing. No pneumothorax. No effusion. No focal air space consolidation. Heart size is enlarged. The pulmonary trunk is not enlarged. Noncontrast portion of the liver and spleen are unremarkable. No hydronephrosis. Extensive vascular c alcifications. Penile prosthetic device is in place. Surgical clips in the pelvis. IMPRESSION: 1. Mild gallbladder distention with cholelithiasis. No pericholecystic inflammation. 2. No evidence of aortic aneurysm or intracranial hematoma. 3. No acute inflammatory process in the chest, abdomen or pelvis. 4. Penile prosthesis as well as sphincter prosthesis involving the left lower quadrant of the ab domen. 5. Mild cardiomegaly. 6. Multilevel neural foraminal and spinal canal narrowing, moderate to severe. This is sequela o f combination of facet arthropathy, posterior disc osteophyte complexes, and increased epidural fat. Spinal canal only measures approximately 4 mm at L3-4. POS: [facility]
[2017-07-13] MEDS ORDERED: Warfarin Sodium 5 MG TAB PO SCH (23:45)
[2017-07-13] MEDS ORDERED: Meclizine HCl 25 MG TAB PO PRN (23:59)
[2017-07-14] MEDS: HYDROcodone/Acetaminophen 5/325 mg Tablet PO PRN ×3 (00:21→13:32)
[2017-07-14] MEDS: Potassium Bicarbonate/Cit Ac 25 MEQ TAB PO SCH ×2 (00:22→03:52)
[2017-07-14 00:31] LABS: INR-International Normal Ratio 1.7; Prothrombin Time 20.6 SEC (12.0-14.7)
[2017-07-14 00:49] LABS: Troponin I 0.099 ng/mL (< 0.028)
[2017-07-14] MEDS ORDERED: Sodium Chloride 0.9% 1,000 ML IV SCH (01:00)
[2017-07-14 01:47] LABS: Anion Gap 14 mmol/L (10-20); BUN (Urea Nitrogen) 86 mg/dL (8.4-25.7); Calc. Creatinine Clearance 13 mL/min (70-130); Calcium 8.5 mg/dL (7.8-10.44); Carbon Dioxide 33 mmol/L (23-31); Chloride 87 mmol/L (98-107); Estimated GFR-MDRD 10; Glucose 135 mg/dL (83-110); Potassium 3.1 mmol/L (3.5-5.1); Sodium 131 mmol/L (136-145)
--- NOTE | 2017-07-14 01:51 | HP ---
DATE OF ADMISSION: 07/14/2017 CHIEF COMPLAINT: Weakness x2 weeks. HISTORY OF PRESENT ILLNESS: This is an 86-year-old male with a history of hypopituitarism, chronic kidney disease, chronic congestive heart failure, history of PE, who presents with a chief complaint of feeling poorly for the last 2 weeks. At the time of my evaluation, the patient currently is in bed, has no new complaints and does endorse that he has been feeling poorly for the last 2 weeks and over the last 2 days has been unable to get out of bed. It appears that on arrival to the emergency department, he had initial systolic blood pressures in the 50s, which improved status post 1 liter of IV fluids. The patient himself is unfortunately a marginal historian and is unable to provide further details. REVIEW OF SYSTEMS: As per HPI. Constitutional: Denies any recent significant weight changes or denies any fevers and chills. HEENT: Denies any headaches, dizziness or lightheadedness episodes. Denies any difficulty with swallowing. Cardiovascular: Denies any overt chest pressure or chest pain either at this point in time or any point in time in the last 2 weeks. Respiratory: Denies any overt shortness of breath or dyspnea with exertion that he has himself noticed over the last 2 weeks. Denies any new upper respiratory issues such as congestion, cough, postnasal drip. Gastrointestinal: Denies any nausea, vomiting, abdominal pain, diarrhea or constipation. Genitourinary: Denies any issues with dysuria and states that he has been urinating his baseline amount while on his diuretics at home. PAST MEDICAL HISTORY: As per above includes the followin. Hypertension. 2. Hyperlipidemia. 3. Hypothyroidism. 4. Chronic kidney disease. 5. History of chronic systolic heart failure with an EF of 40%. 6. History of pulmonary embolus, currently on warfarin. 7. History of prostate cancer. 8. Status post radical prostatectomy. 9. Status post penile implant. 10. Status post colonoscopy. 11. Status post AICD placement. 12. Status post transsphenoidal pituitary resection. HOME MEDICATIONS: Please see the EMR for full details. The patient denies any recent changes in the last month. The patient denies any new over the counter, vitamins, herbals, supplements over the last month. FAMILY HISTORY: Denies any family history of cardiac issues. ALLERGIES: CIPROFLOXACIN, NITROFURANTOIN, SULFA ANTIBIOTICS, IODINE. SOCIAL HISTORY: The patient states that his nephew will be his medical decision maker if he is unable to make his own medical decisions. He otherwise lives alone. No tobacco, no alcohol, no illicit drug use. The patient wishes to be full code at this point in time. This was discussed with the patient at bedside. PHYSICAL EXAMINATION: VITAL SIGNS: Temperature of 97.7, heart rate of 81, respirations 22, satting 95 % on room air, blood pressure 123/47. GENERAL: The patient is awake, alert, conversant, in no acute distress, lying in the hospital bed. HEENT: Normocephalic, atraumatic. Equal ocular motions are intact, slightly moist mucous membranes. CARDIOVASCULAR: S1, S2. Soft heart tones. Pulses 2+ bilateral upper extremities, 2+ bilateral pitting pedal edema. RESPIRATORY: Limited anterior examination, grossly clear to auscultation. No wheezes, rales or rhonchi. ABDOMEN: Positive bowel sounds, soft, nontender to palpation. MUSCULOSKELETAL: Patient is able to self-reposition in the bed without assistance. SIGNIFICANT LABORATORIES AND IMAGING: WBC 7.9, hemoglobin 15.6, hematocrit 45.7 , platelets 146. INR 1.7. Sodium 129, potassium 2.8, chloride 83, bicarbonate 32, BUN 88, creatinine 5.94, glucose 116, calcium 8.8, total bilirubin 1.2, AST 11, ALT 8, alkaline phosphatase 76. Creatine kinase 247. Troponin 0.110 followed by 0.128 followed by 0.099. Serum total protein 6.9, albumin 3.7. UA is essentially bland. ASSESSMENT AND PLAN: An 86-year-old male with a history of overall generalized weakness. 1. Overall generalized weakness. The patient has multiple possible etiologies for this at this point in time. He certainly has an elevated troponin in the setting of acute on chronic renal disease, accompanied by hypokalemia and hyponatremia. Any one of these in isolation could certainly cause his presenting symptoms and all of them in combination could be the multifactorial combination that has caused him to present as he has. 2. Acute on chronic renal injury. Patient currently feels slightly improved after having received IV fluids in the emergency department. The patient's home torsemide and metolazone has been held at this point in time. Nephrology has been consulted. The patient's baseline creatinine in the past appears to be in the 2-3 range, so this certainly represents acute kidney injury or chronic renal disease. Check ultrasound of the abdomen, check urine electrolytes. Given the electrolyte deficiencies, the patient will also have a basic metabolic panel every 8 hours, glucose monitoring and adjustment of his electrolyte status as needed. 3. Hypokalemia. Please see discussion above. The patient is maintained on telemetry. Initial EKG is unremarkable. Recheck EKG in the a.m. 4. Hyponatremia. See discussion above. The patient is currently on normal saline x1 liter, close monitoring of his sodium status. 5. Hypopituitarism, appears to be stable. Closely monitor. 6. History of congestive heart failure. Please see discussion above. Hold on patient's diuretic regimen. Closely monitor his respiratory status in particular. 7. Elevated troponin. Unclear how much of this is secondary to his concomitant acute kidney injury. We will continue to trend his troponins with close attention to his cardiac status and hemodynamic stability. 8. History of a pulmonary embolus with a subtherapeutic INR of 1.7. Continue the patient on his home Coumadin which consists of alternating 5 mg with 4 mg. We will continue the patient on 5 mg daily at this point in time. Daily INR. DVT prophylaxis with heparin subcutaneously while the INR is less than 2. 9. Hypertension, stable. 10. Hyperlipidemia, stable. 11. Obesity, stable. 12. Diet: Cardiac, renal diet. 13. Deep venous thrombosis prophylaxis. Heparin 5000 units subcu t.i.d. while the patient's INR is still less than 2. Check INR daily. 14. ACTIVITY: Cardiac, out of bed as tolerated. Given the patient's weakness , both walking program and physical therapy and cardiac rehab are all consulted for the patient at this point in time given his comorbid factors. 15. Admit the patient inpatient to telemetry on a medical/surgical floor. Patient is a FULL CODE as discussed above. Thank you for asking me to care for the patient. Questions or concerns, please contact me at [facility]. KEEGAN
[2017-07-14 01:53] LABS: Troponin I 0.108 ng/mL (< 0.028)
[2017-07-14 04:36] LABS: Potassium, Urine 36.9 mmol/L
[2017-07-14] MEDS: Lidocaine 5% Patch TD SCH (05:03)
[2017-07-14] MEDS: Levothyroxine Sodium 88 MCG TAB PO SCH (05:04)
[2017-07-14] MEDS: Potassium Chloride 20 MEQ TAB PO SCH ×3 (05:04→08:29)
[2017-07-14 05:30] LABS: INR-International Normal Ratio 1.7; Prothrombin Time 20.1 SEC (12.0-14.7)
[2017-07-14 05:57] LABS: Band 1 % (5-11); Eosinophils 6 % (0-10); Hemoglobin 14.5 g/dL (14.0-18.0); Lymphocytes 19 % (21-51); MDiff Complete? YES; Mean Corpuscular HGB CONC 34.1 g/dL (32.0-36.0); Mean Corpuscular Hemoglobin 32.7 pg (27.0-31.0); Mean Corpuscular Volume 96.1 fl (80.0-94.0); Mean Platelet Volume 9.1 fL (7.4-10.4); Monocytes 15 % (0-10); Neutrophil 59 % (42-75); Platelet Count 130 thou/uL (130-400); RBC Distribution Width 12.8 % (11.5-14.5); Red Blood Cell (RBC) Count 4.43 mill/uL (4.70-6.10); White Blood Cell (WBC) Count 6.5 thou/uL (4.8-10.8)
--- NOTE | 2017-07-14 08:18 | ULT ---
RENAL ULTRASOUND: History: Chronic renal failure. FINDINGS: Real-time imaging of the right and left kidneys show the right kidney measuring 10.2, the left kidney is 10.5 cm in size. There are no signs of cyst, mass, or obstruction. The bladder is normal in posit ion. It is somewhat irregular in shape. I am not certain if this is related to bladder diverticulum. It is somewhat difficult to assess due to the incompletely distended appearance although the volume i s 324 cc. IMPRESSION: 1. Mild cortical thinning in both kidneys. No evidence of cyst, mass, or obstruction. 2. Slightly irregular contour of the bladder. There is no definite focal discrete mass. I am not cert ain how much of this is on the basis of under distention. POS: [facility]
[2017-07-14] MEDS: busPIRone HCl 10 MG TAB PO SCH ×3 (08:29→20:41)
[2017-07-14] MEDS: Famotidine 20 MG TAB PO SCH (08:29)
[2017-07-14] MEDS: Carvedilol 3.125 MG TAB PO SCH ×2 (08:29→20:40)
[2017-07-14] MEDS ORDERED: Heparin 5,000 UNITS/ML VIAL SC SCH (09:00)
[2017-07-14] MEDS ORDERED: Gabapentin 100 MG CAP PO SCH (09:00)
[2017-07-14 09:17] LABS: Anion Gap 16 mmol/L (10-20); BUN (Urea Nitrogen) 82 mg/dL (8.4-25.7); Calc. Creatinine Clearance 14 mL/min (70-130); Carbon Dioxide 32 mmol/L (23-31); Chloride 88 mmol/L (98-107); Estimated GFR-MDRD 10; Potassium 3.6 mmol/L (3.5-5.1); Sodium 132 mmol/L (136-145)
[2017-07-14 09:18] LABS: Calcium 8.8 mg/dL (7.8-10.44); Glucose 142 mg/dL (83-110)
[2017-07-14 09:24] LABS: Troponin I 0.093 ng/mL (< 0.028)
[2017-07-14] MEDS ORDERED: WARFARIN PO PRN (10:13)
--- NOTE | 2017-07-14 10:54 | CON ---
DATE OF CONSULTATION: 07/14/2017 REFERRING PHYSICIAN: Dr. Brown REASON FOR CONSULT: Acute kidney injury. REASON FOR ADMISSION: Weakness. HISTORY OF PRESENT ILLNESS: This is an 86-year-old male with history of hypertension, hyperlipidemi a, hypothyroidism, chronic kidney disease, came to the hospital with weakness. He was found to have elevated creatinine and Nephrology is consulted. He denies any nausea, vomiting, no shortness of silvestre ath or chest pain. He is feeling very weak and has some shoulder pain. The patient on arrival had a systolic blood pressure of 50s. PAST MEDICAL HISTORY: Positive for hypertension, hyperlipidemia, hypothyroidism, chronic kidney dise ase, CHF, pulmonary embolism, carcinoma prostate. PAST SURGICAL HISTORY: Radical prostatectomy, penile implant colonoscope, AICD placement and a pitui tary resection. HOME MEDICATIONS: Include warfarin, torsemide 100 mg p.o. daily, meclizine, ranitidine, Coumadin, hy drocodone, metolazone, levothyroxine, carvedilol and buspirone. ALLERGIES: CIPROFLOXACIN, IODINE, NITROFURANTOIN, SULFA ANTIBIOTICS. SOCIAL HISTORY: No smoking or alcohol. FAMILY HISTORY: No history of kidney disease. REVIEW OF SYSTEMS: The following complete review of systems was negative, unless otherwise mentioned in the HPI or below: Constitutional: Weight loss or gain, ability to conduct usual activities. Skin: Rash, itching. Eyes: Double vision, pain. ENT/Mouth: Nose bleeding, neck stiffness, pain, tenderness. Cardiovascular: Palpitations, dyspnea on exertion, orthopnea. Respiratory: Shortness of breath, wheezing, cough, hemoptysis, fever or night sweats. Gastrointestinal: Poor appetite, abdominal pain, heartburn, nausea, vomiting, constipation, or diarrhea. Genitourinary: Urgency, frequency, dysuria, nocturia. Musculoskeletal: Pain, swelling. Neurologic/Psychiatric: Anxiety, depression. Allergy/Immunologic: Skin rash, bleeding tendency. PHYSICAL EXAMINATION: GENERAL: This is an elderly white male in no apparent distress. VITAL SIGNS: Temperature 98.1, pulse 82, respiratory 16, blood pressure 106/53. HEENT: Atraumatic, normocephalic. Oral mucosa is moist. NECK: Supple. HEART: S1, S2 heard. Rate and rhythm regular. RESPIRATORY: Clear. ABDOMEN: Soft. MUCULOSKELETAL: 1+ edema. SKIN: No rashes. NEUROLOGIC: Alert, awake. PSYCHIATRIC: Mood and affect normal. LABORATORY: Hemoglobin is 14.5, potassium 3.1, BUN 86, creatinine is 5.5. ASSESSMENT AND PLAN: 1. Acute kidney injury on chronic kidney disease stage 4, most likely from volume depletion. Lab wi th hypokalemia and alkalosis suggestive of volume contraction. Agree with hydration and creatinine i s already getting better from 5.9 to 5.5. 2. Hypokalemia, most likely from diuretics, supplement cautiously given the acute kidney injury. 3. Hyponatremia, better with IV hydration at this point. 4. Alkalosis secondary to diuretics and contraction alkalosis. 5. Hemoconcentration. 6. Cardiorenal syndrome, cautious administration of IV fluids. 7. Edema. 8. History of fluid overload. Okay with holding the Lasix. 9. Avoid nephrotoxins. 10. Gentle hydration with close monitoring of cardiac and respiratory status. I will continue to follow. Renally dose all the medicines. Recommend renal diet. Thank you for the consult.
[2017-07-14] MEDS: Acetaminophen 325 MG TAB PO SCH ×2 (14:41→20:41)
[2017-07-14] MEDS: Warfarin Sodium 5 MG TAB PO SCH (16:43)
[2017-07-14] MEDS ORDERED: WARFARIN SODIUM 4 MG PO SCH (17:00)
--- NOTE | 2017-07-14 18:03 | CON ---
DATE OF CONSULTATION: 07/14/2017 INDICATION FOR CONSULTATION: An 86-year-old patient with a history of coronary artery disease and ca rdiomyopathy. We were asked to see him due to his history of congestive heart failure in the past an d problems with blood pressure. This very unfortunate elderly gentleman, who is now 86 years old, pompa s had a long history of cardiomyopathy. He had improvement in his ejection fraction, but then has pompa d some decrease again. He presented to the hospital at this time not complaining of congestive heart failure symptoms, but complaining of left neck pain, left arm pain, and left leg numbness. At this time, he had no cardiac complaints of chest pain or significant shortness of breath. He does have ch ronic shortness of breath. He has history of pulmonary emboli in the past. He has a history of bila teral DVTs and lower extremity edema. He has been on oral anticoagulation. His last echocardiogram was in 02/2017 with ejection fraction of 35%-40%. His last cardiac catheterization was in 2014, whic h showed minimal plaque in the left circumflex and in the proximal right coronary artery. PAST MEDICAL HISTORY: Significant for the dilated cardiomyopathy, congestive heart failure, both cla ss 1 and class II; hypothyroidism; prostate cancer. He has had a total prostatectomy, cataract surge ry, tonsillectomy, distal phalanx of the third right hand has been amputated. He has had a history o f left bundle branch block. He has had history of ventricular tachycardia in the past. He has hyper tension and dyslipidemia. He has had diverticulosis. He has had herniated disk. He has had history of tobacco abuse in the past. He has a history of bilateral PEs. He has had sphincterotomy. ALLERGIES: He is allergic to IODINE, CIPRO, SULFA, NITROFURANTOIN, and MACROBID. MEDICATIONS PRIOR TO ADMISSION: Included buspirone, VESIcare, ranitidine, Synthroid, Symbicort, aero viv inhaler, Mucinex, Coumadin 4 mg a day, Coreg 3.125 mg b.i.d., hydrocortisone, metolazone 5 mg iwona ry day prior to taking Lasix, furosemide 1 tablet b.i.d., and nitroglycerin as needed p.r.n. FAMILY HISTORY: Noncontributory. SOCIAL HISTORY: He no longer uses tobacco. He smoked in the past. He is . His children are alive and well. He has no history of significant alcohol use. He uses only mild amount of caffeine . REVIEW OF SYSTEMS: He denied any significant weight gain, weight loss, or fevers. He had no new MARYAN NT complaints. He did complain of left shoulder pain and excruciating neck pain, which radiates down the shoulder area. He is actually unable to even move without having a stabbing sudden pain, which causes him obvious pain. He also has had some numbness in the left lower extremity. He denied any s ignificant coughing, hemoptysis, or pneumonias. He had no cardiac complaints such as chest pains or palpitations. He complains of chronic lower extremity edema. He had no abdominal discomfort, but do es have some bloating. PHYSICAL EXAMINATION: GENERAL: Reveals a well-developed, well-nourished gentleman who appears to be in some mild distress due to the pain. VITAL SIGNS: His blood pressure is 108/69, heart rate is 81, shows a pacing of 100%, respiratory rat e is 18. He is afebrile. HEENT: Shows the head to be normocephalic and atraumatic. Carotid pulses are present. There are no bruits. There is no JVD. The thyroid does not appear to be enlarged. His oral mucosa is pink and moist. CHEST: Clear. There were no rales, rhonchi, or wheezing noted today. CARDIOVASCULAR: Reveals a regular rate and rhythm. He has a soft systolic murmur at the apex. Ther e were no bruits or heaves. ABDOMEN: Showed some mild distention, is somewhat tympanic. Positive bowel sounds are present. EXTREMITIES: Showed 1 to 2+ lower extremities from the knees all the way down the feet, also at leas t 2+ pedal edema. NEUROLOGIC: The patient appears to be psychologically intact; however, he does have significant pain even on palpation to the neck area on the lateral side and posteriorly radiating down to the upper s houlder area. IMPRESSION: 1. Congestive heart failure history, which appears to be stable at this time. He also has a history of orthostatic hypotension, which is also under relatively good control, but the patient is unable t o get out of the bed due to severe pain. 2. History of implantable defibrillator due to history of ventricular tachycardia, which was induced in the past with associated cardiomyopathy. This appears to be stable. The last check showed an un remarkable defibrillator function. He has also chronic kidney disease and as noted by his laboratory data, his creatinine was significantly elevated at 5.22. This has been relatively stable on this ad mission, but back in October of last year, his creatinine was 2.14. In 02/2017, it was 3.31 and then pompa d decreased down in 03/2017 to 2.48. He has been elevated at one time at 5 back in 02/2016 and appea rs to have overall worsening of his renal function. 3. Lower extremity edema, which is associated with previous deep venous thromboses and pulmonary emb alonso, and this appears to be overall unchanged from his previous evaluations. Actually, not significa ntly edematous today as compared to previous examinations. 4. Elevated cardiac enzymes, troponin I. This would be considered indeterminate, is 0.093, but on a dmission it was 0.128 and has decreased down to 0.093. There is no indication the patient has had a myocardial infarction. He denied any chest pain. At this time, we will continue to follow this eugenia ent. It appears to be some type of neurological nerve impingement causing his neck and shoulder pain .
[2017-07-14] MEDS: Lidocaine Patch Removal 1 EACH TOP SCH (18:38)
[2017-07-14] MEDS: Gabapentin 100 MG CAP PO SCH (20:40)
[2017-07-15 05:53] LABS: INR-International Normal Ratio 1.8
[2017-07-15 05:55] LABS: Anion Gap 17 mmol/L (10-20); BUN (Urea Nitrogen) 69 mg/dL (8.4-25.7); Calc. Creatinine Clearance 15 mL/min (70-130); Calcium 9.1 mg/dL (7.8-10.44); Carbon Dioxide 29 mmol/L (23-31); Chloride 90 mmol/L (98-107); Estimated GFR-MDRD 12; Glucose 117 mg/dL (83-110); Magnesium 2.5 mg/dL (1.6-2.6); Phosphorus 3.9 mg/dL (2.3-4.7); Potassium 3.7 mmol/L (3.5-5.1); Sodium 132 mmol/L (136-145)
[2017-07-15 06:06] LABS: Eosinophils 9 % (0-10); Hemoglobin 15.3 g/dL (14.0-18.0); Lymphocytes 32 % (21-51); MDiff Complete? YES; Mean Corpuscular HGB CONC 33.9 g/dL (32.0-36.0); Mean Corpuscular Hemoglobin 31.9 pg (27.0-31.0); Mean Corpuscular Volume 93.8 fl (80.0-94.0); Monocytes 13 % (0-10); Neutrophil 45 % (42-75); Nucleated RBC 1 % (0); PLT Morphology Comment Appears Adequate; Platelet Count 123 thou/uL (130-400)
[2017-07-15] MEDS: Levothyroxine Sodium 88 MCG TAB PO SCH (06:11)
[2017-07-15] MEDS: Lidocaine 5% Patch TD SCH (06:11)
[2017-07-15] MEDS: Famotidine 20 MG TAB PO SCH (08:44)
[2017-07-15] MEDS: Cyanocobalamin (Vitamin B-12) 1,000 MCG TAB PO SCH (08:44)
[2017-07-15] MEDS: HYDROcodone/Acetaminophen 5/325 mg Tablet PO PRN ×3 (08:44→22:32)
[2017-07-15] MEDS: Gabapentin 100 MG CAP PO SCH ×2 (08:44→20:47)
[2017-07-15] MEDS: Acetaminophen 325 MG TAB PO SCH ×3 (08:44→20:47)
[2017-07-15] MEDS: busPIRone HCl 10 MG TAB PO SCH ×3 (08:44→20:47)
[2017-07-15] MEDS: Carvedilol 3.125 MG TAB PO SCH ×2 (08:44→20:47)
[2017-07-15] MEDS: Folic Acid 1 MG TAB PO SCH (08:44)
--- NOTE | 2017-07-15 08:56 | RAD ---
LEFT SHOULDER 3 VIEWS: HISTORY: Left shoulder pain. COMPARISON: Compared to left shoulder films of 05/13/13. FINDINGS: No evidence of fracture or dislocation. AC joint is normally aligned and unchanged from prior exam. Very mild degenerative change. No interval change in the appearance of the left shoulder when sallie red to the prior study. IMPRESSION: Unremarkable left shoulder. POS: [facility] [place]
--- NOTE | 2017-07-15 09:47 | PRG ---
DATE OF SERVICE: 07/15/2017 SUBJECTIVE: Patient was seen and examined at bedside and overnight events noted. Patient denies any shortness of breath or chest pain or palpitation. No history of nausea or vomiting or diarrhea or f ever or chills or cramps. OBJECTIVE: GENERAL: This is an elderly male in no apparent distress. VITAL SIGNS: Temperature 97.8, pulse 79, respiratory rate 18, blood pressure 141/60. HEENT: Atraumatic, normocephalic. Oral mucosa is moist. NECK: Supple. CARDIOVASCULAR: S1, S2 heard. Rate and rhythm regular. RESPIRATORY: Clear to auscultation. GASTROINTESTINAL: Abdomen is soft. MUSCULOSKELETAL: No tenderness. No edema. DERMATOLOGIC: No skin rash. NEUROLOGIC: Alert and awake and oriented x3. No focal neurologic deficits. Moving all the extremiti es. PSYCHIATRIC: Mood and affect normal. LABORATORY DATA: Potassium is 3.7, BUN 69, creatinine is 4.6. ASSESSMENT AND PLAN: 1. Acute kidney injury on chronic kidney disease stage 4. 2. Secondary volume depletion. 3. Agree with holding diuretics and gentle hydration and monitor cardiorespiratory status. 4. Hyperemia, stable. 5. Hyperkalemia. 6. Alkalosis much better. 7. Cardiorenal syndrome. 8. Edema. 9. History of fluid overload. Overall, renal function seems to be getting better. Avoid nephrotoxins and hydration as tolerated.
--- NOTE | 2017-07-15 10:11 | RAD ---
CERVICAL SPINE THREE VIEWS: History: Neck pain. Left shoulder pain. FINDINGS: The vertebral bodies maintain height. There is mild anterior subluxation of C3 on C4. There is loss o f disc space and moderate degenerative changes throughout the cervical spine. C6, C7, and T1 are quintin tly seen on the swimmer's view and appear normally aligned. These vertebral bodies are not visualized on the lateral view. There is soft tissue attenuation. IMPRESSION: Moderate degenerative changes of the cervical spine. Poor evaluation of the lower cervical spine. POS: [facility]
--- NOTE | 2017-07-15 13:01 | PDOC.CTH ---
<Mandie Prajapati - Last Filed: 07/15/17 12:59> Cardiology Progress Note - Subjective The pt seen and examined. No overnight events. No cardiac complaints. He is complaining of severe pain to Lt shoulder and back. - Objective Vital Signs Temp Pulse Resp BP BP BP Pulse Ox 07/15/17 12:23 97.4 F L 81 18 101/62 97 07/15/17 11:09 97.2 F L 81 18 106/83 100 07/15/17 08:38 97.8 F 79 20 141/60 H 97 07/15/17 08:00 97.8 F 79 20 97 07/15/17 04:00 97.4 F L 80 18 122/58 L 95 Admit Weight 212 lb 12.8 oz Weight 212 lb 12.8 oz 07/14/17 07/15/17 07/16/17 06:59 06:59 06:59 Intake Total 1322 1860 Output Total 700 1780 Balance 622 80 - Physical Examination General/Neuro: alert & oriented x3 Neck: no JVD present Lungs: CTA (diminished at bases) Heart: RRR Abdomen: soft Extremities: other: (4+ pitting edema to Lt foot, 2-3+ pitting to RLE) - Telemetry Telemetry Rhythm: AV paced - Labs Result Diagrams: 07/15/17 05:07 07/15/17 05:07 Troponin/CKMB CK-MB (CK-2) 3.7 ng/mL (0-6.6) 07/13/17 18:02 Troponin I 0.093 ng/mL (< 0.028) H 07/14/17 08:50 - Assessment/Plan 1. Chronic combined HF - stable with holding diuretic and mild hydration; cont. monitor 2. Dilated CMY with hx of AICD - stable; 3. CKD stage 4 - stable; managed by assistant director of admissions 4. BLE edema Lt> Rt with Hx of DVTs - Instructed to elevate his BLE; on Coumadin 5. HTN - stable 6. Hypothyroidism - managed by PCP 7. Pain in Lt shoulder and back - Xray today showed no evidence abnormalities in his Lt shoulder and mod degenerative changes of the cervical spine; MAR reviewed * Echo on 07/14/17 showed EF 40-45%, mod LA dilation, mild-mod MR, mild AR, mild TR. Review of Systems - Review of Systems Constitutional: reports: no symptoms reported EENTM: reports: no symptoms reported Respiratory: reports: no symptoms reported Cardiac (ROS): reports: no symptoms reported ABD/GI: reports: no symptoms reported : reports: no symptoms reported Musculoskeletal: reports: see HPI <Dennis Rodríguezan - Last Filed: 07/15/17 19:22> Cardiology Progress Note - Objective Vital Signs Temp Pulse Pulse Pulse Resp BP BP 07/15/17 15:18 97.6 F 80 18 07/15/17 12:23 97.4 F L 81 18 07/15/17 11:45 80 81 113/56 L 134/96 H 07/15/17 11:09 97.2 F L 81 18 07/15/17 08:38 97.8 F 79 20 07/15/17 08:00 97.8 F 79 20 BP BP BP Pulse Ox 07/15/17 15:18 115/58 L 97 07/15/17 12:23 101/62 97 07/15/17 11:45 07/15/17 11:09 106/83 100 07/15/17 08:38 141/60 H 97 07/15/17 08:00 97 Admit Weight 212 lb 12.8 oz Weight 212 lb 12.8 oz 07/14/17 07/15/17 07/16/17 06:59 06:59 06:59 Intake Total 1322 1860 940 Output Total 700 1780 650 Balance 622 80 290 - Labs Result Diagrams: 07/15/17 05:07 07/15/17 05:07 Troponin/CKMB CK-MB (CK-2) 3.7 ng/mL (0-6.6) 07/13/17 18:02 Troponin I 0.093 ng/mL (< 0.028) H 07/14/17 08:50 - Assessment/Plan Pt. seen and eval. by me. I agree with the A/P by the DIRECTOR [employer]. His overall cardiac status is stable.
[2017-07-15] MEDS: Warfarin Sodium 5 MG TAB PO SCH (17:10)
[2017-07-15] MEDS: Lidocaine Patch Removal 1 EACH TOP SCH (17:10)
--- NOTE | 2017-07-15 17:40 | EKG ---
Test Reason : Blood Pressure : / mmHG Vent. Rate : 080 BPM Atrial Rate : 080 BPM P-R Int : 152 ms QRS Dur : 198 ms QT Int : 470 ms P-R-T Axes : 102 160 058 degrees QTc Int : 542 ms AV sequential or dual chamber electronic pacemaker When compared with ECG of 13-JUL-2017 18:11, (Unconfirmed) No significant change was found Confirmed by DR. Ritika BURNETT ([id number]) on 07/15/2017 5:40:22 PM Referred By: JUAN CARLOS Confirmed By:DR. Ritika BURNETT
[2017-07-15] MEDS ORDERED: Sodium Chloride 0.9% 10 ML ONE (19:55)
--- NOTE | 2017-07-15 22:03 | PDOC.PN ---
- Subjective Encounter Start Date: 07/15/17 Encounter Start Time: 11:25 Patient seen and examined. Still has left shoulder pain. No overnight events - Objective Resuscitation Status: Resuscitation Status FULL:Full Resuscitation Vital Signs & Weight: Vital Signs (12 hours) Temp Pulse Pulse Pulse Resp BP BP 07/15/17 20:42 97.7 F 82 20 07/15/17 15:18 97.6 F 80 18 07/15/17 12:23 97.4 F L 81 18 07/15/17 11:45 80 81 113/56 L 134/96 H 07/15/17 11:09 97.2 F L 81 18 BP BP BP Pulse Ox 07/15/17 20:42 130/57 L 94 L 07/15/17 15:18 115/58 L 97 07/15/17 12:23 101/62 97 07/15/17 11:45 07/15/17 11:09 106/83 100 Weight Admit Weight 212 lb 12.8 oz Weight 212 lb 12.8 oz I&O: 07/14/17 07/15/17 07/16/17 06:59 06:59 06:59 Intake Total 1322 1860 940 Output Total 700 1780 650 Balance 622 80 290 Result Diagrams: 07/16/17 04:55 07/16/17 04:55 Radiology Reviewed by me: Yes (Left shoulder - no fractures, Cspine - DJD) EKG Reviewed by me: Yes (Tele paced) Phys Exam - Physical Examination Pt in distress due to left shoulder pain Respiratory: no wheezing, no rhonchi Scat rales at bases, Symmetrical Cardiovascular: RRR, no rub no heaves/pulsations Gastrointestinal: soft, non-tender, no distention, positive bowel sounds Musculoskeletal: edema present Neurological: non-focal, normal sensation, moves all 4 limbs Dx/Plan - Plan IMPRESSION: 1. Gen weakness - multifactorial 2. CHARI on CKD 4/Hyponatremia/Hypokalemia 3. Chronic combined CHF -diuretics on hold due to CHF 4. Left UE pain - prob due to Cervical radiculopathy 5. Obesity BMI 33.5 / Physical deconditioning 6. Other issues per H&P PLAN: * Cardio/Nephro following * AM labs * Diuretics on hold * Gabapentin dose increased yesterday - will go slowly due to advanced age * Cont therapy * Pain control * on Anticoag * Cont current meds as below Review of Systems - Review of Systems Respiratory: negative: Cough, Dry, Shortness of Breath, Hemoptysis, SOB with Excertion, Pleuritic Pain, Sputum, Wheezing Cardiovascular: negative: chest pain, palpitations, orthopnea, paroxysmal nocturnal dyspnea, edema, light headedness Gastrointestinal: negative: Nausea, Vomiting, Abdominal Pain, Diarrhea, Constipation, Melena, Hematochezia - Medications/Allergies Allergies/Adverse Reactions: Allergies Allergy/AdvReac Type Severity Reaction Status Date / Time ciprofloxacin HCl Allergy Verified 07/13/17 21:32 [From Cipro] iodine Allergy Verified 07/13/17 21:32 nitrofurantoin Allergy Verified 07/13/17 21:32 macrocrystalline [From Macrodantin] Sulfa (Sulfonamide Allergy Verified 07/13/17 21:32 Antibiotics) Medications: Current Medications Acetaminophen (Tylenol) 325 mg PO TID [facility] Last Admin: 07/15/17 20:47 Dose: 325 mg Hydrocodone Bitart/Acetaminophen ([place] 5/325) 1 tab PO Q6H PRN PRN Reason: Moderate Pain (4-6) Last Admin: 07/15/17 15:23 Dose: 1 tab Buspirone HCl (Buspar) 10 mg PO TID [facility] Last Admin: 07/15/17 20:47 Dose: 10 mg Carvedilol (Coreg) 3.125 mg PO BID [facility] Last Admin: 07/15/17 20:47 Dose: 3.125 mg Cyanocobalamin (Vitamin B-12) 1,000 mcg PO DAILY [facility] Last Admin: 07/15/17 08:44 Dose: 1,000 mcg Famotidine (Pepcid) 20 mg PO DAILY [facility] Last Admin: 07/15/17 08:44 Dose: 20 mg Folic Acid (Folvite) 1 mg PO DAILY [facility] Last Admin: 07/15/17 08:44 Dose: 1 mg Gabapentin (Neurontin) 100 mg PO BID [facility] Last Admin: 07/15/17 20:47 Dose: 100 mg Levothyroxine Sodium (Synthroid) 88 mcg PO 0600 [facility] Last Admin: 07/15/17 06:11 Dose: 88 mcg Lidocaine (Lidoderm 5% Patch) 1 patch TD 0500 [facility] Last Admin: 07/15/17 06:11 Dose: 1 patch Meclizine HCl (Antivert) 25 mg PO TIDPRN PRN PRN Reason: Dizziness Miscellaneous Medication (Lidocaine Patch Removal) 1 each TOP 1700 [facility] Last Admin: 07/15/17 17:10 Dose: Not Given Miscellaneous Medication (Pharmacy To Dose) 0 each PO DAILYPRN PRN PRN Reason: LABS Warfarin Sodium (Coumadin) 5 mg PO 1700 [facility] Last Admin: 07/15/17 17:10 Dose: 5 mg
[2017-07-16] MEDS: Lidocaine 5% Patch TD SCH (04:55)
[2017-07-16] MEDS: Levothyroxine Sodium 88 MCG TAB PO SCH (04:55)
[2017-07-16 06:02] LABS: INR-International Normal Ratio 1.9; Prothrombin Time 22.8 SEC (12.0-14.7)
[2017-07-16 06:07] LABS: Anion Gap 16 mmol/L (10-20); BUN (Urea Nitrogen) 59 mg/dL (8.4-25.7); Calc. Creatinine Clearance 18 mL/min (70-130); Calcium 9.2 mg/dL (7.8-10.44); Carbon Dioxide 29 mmol/L (23-31); Chloride 89 mmol/L (98-107); Estimated GFR-MDRD 14; Glucose 116 mg/dL (83-110); Potassium 3.4 mmol/L (3.5-5.1); Sodium 131 mmol/L (136-145)
[2017-07-16 06:37] LABS: Eosinophils 3 % (0-10); Hemoglobin 14.5 g/dL (14.0-18.0); Lymphocytes 24 % (21-51); MDiff Complete? YES; Mean Corpuscular HGB CONC 34.4 g/dL (32.0-36.0); Mean Corpuscular Hemoglobin 32.2 pg (27.0-31.0); Mean Corpuscular Volume 93.6 fl (80.0-94.0); Mean Platelet Volume 8.4 fL (7.4-10.4); Monocytes 16 % (0-10); Neutrophil 55 % (42-75); PLT Morphology Comment Appears Adequate; Platelet Count 151 thou/uL (130-400); RBC Distribution Width 12.9 % (11.5-14.5); RBC Morphology Normal; Reactive Lymphocytes 2 % (0-10); White Blood Cell (WBC) Count 5.5 thou/uL (4.8-10.8)
[2017-07-16] MEDS: HYDROcodone/Acetaminophen 5/325 mg Tablet PO PRN ×2 (07:24→17:43)
[2017-07-16] MEDS: Polyethylene Glycol 3350 17 GM Packet PO SCH (08:21)
[2017-07-16] MEDS: Famotidine 20 MG TAB PO SCH (08:21)
[2017-07-16] MEDS: Cyanocobalamin (Vitamin B-12) 1,000 MCG TAB PO SCH (08:21)
[2017-07-16] MEDS: Acetaminophen 325 MG TAB PO SCH ×3 (08:22→21:13)
[2017-07-16] MEDS: busPIRone HCl 10 MG TAB PO SCH ×3 (08:22→21:13)
[2017-07-16] MEDS: Gabapentin 100 MG CAP PO SCH ×2 (08:22→21:13)
[2017-07-16] MEDS: Carvedilol 3.125 MG TAB PO SCH ×2 (08:22→21:13)
[2017-07-16] MEDS: Folic Acid 1 MG TAB PO SCH (08:22)
--- NOTE | 2017-07-16 10:36 | PDOC.PN ---
- Subjective Encounter Start Date: 07/16/17 Encounter Start Time: 08:50 no acute night events or major complaints this morning - Objective Resuscitation Status: Resuscitation Status FULL:Full Resuscitation Vital Signs & Weight: Vital Signs (12 hours) Temp Pulse Resp BP BP BP Pulse Ox 07/16/17 07:22 97.7 F 07/16/17 07:07 78 18 138/67 96 07/16/17 04:39 98 F 80 20 123/60 122/58 L 122/58 L 95 07/16/17 04:38 95 Weight Admit Weight 212 lb 12.8 oz Weight 220 lb 1.6 oz I&O: 07/15/17 07/16/17 07/17/17 06:59 06:59 06:59 Intake Total 1860 1550 Output Total 1780 1350 Balance 80 200 Result Diagrams: 07/16/17 04:55 07/16/17 04:55 Phys Exam - Physical Examination Constitutional: NAD HEENT: PERRLA, moist MMs Neck: no nodes, no JVD rales bilaterally-mild Cardiovascular: RRR, no rub Gastrointestinal: soft, non-tender, no distention Musculoskeletal: pulses present Dx/Plan (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 Code(s): I50.40 - UNSP COMBINED SYSTOLIC AND DIASTOLIC (CONGESTIVE) HRT FAIL Status: Acute (2) Left shoulder pain Code(s): M25.512 - PAIN IN LEFT SHOULDER Status: Acute (3) Obesity Code(s): E66.9 - OBESITY, UNSPECIFIED Status: Acute (4) General weakness Code(s): R53.1 - WEAKNESS Status: Acute (5) Acute renal failure superimposed on stage 4 chronic kidney disease Code(s): N17.9 - ACUTE KIDNEY FAILURE, UNSPECIFIED; N18.4 - CHRONIC KIDNEY DISEASE, STAGE 4 (SEVERE) Status: Acute Comment: Improved today. I suspect due to over-diuresis. Diuretics on hold. I have asked his oven attendant nd enginehouse brakeman to visit to make medication adjustment recommendations. - Plan cont current plan of care, web content & social media manager * . cardio and renal following continue monitoring creatnine continue coumadin shoulder pain slightly better-continue gabapentin supportive care mgmt
[2017-07-16] MEDS ORDERED: Ondansetron HCl/PF 4 MG/2 ML Vial IVP PRN (10:48)
[2017-07-16] MEDS ORDERED: Potassium Chloride 20 MEQ TAB PO SCH (11:00)
--- NOTE | 2017-07-16 14:55 | PDOC.CTH ---
<Mandie Prajapati - Last Filed: 07/16/17 14:53> Cardiology Progress Note - Subjective The pt seen and examined. No overnight events. No cardiac complaints. Pain to his Lt shoulder and back. He also reported that he cannot feel to Bilat feet and very diminished to BLE for about 4 years. - Objective Vital Signs Temp Pulse Pulse Resp BP BP BP 07/16/17 11:20 97.4 F L 80 20 114/66 07/16/17 10:17 80 124/61 07/16/17 07:22 97.7 F 07/16/17 07:07 78 18 138/67 07/16/17 04:39 98 F 80 20 123/60 122/58 L 07/16/17 04:38 BP Pulse Ox 07/16/17 11:20 94 L 07/16/17 10:17 07/16/17 07:22 07/16/17 07:07 96 07/16/17 04:39 122/58 L 95 07/16/17 04:38 95 Admit Weight 212 lb 12.8 oz Weight 220 lb 1.6 oz 07/15/17 07/16/17 07/17/17 06:59 06:59 06:59 Intake Total 1860 1550 Output Total 1780 1350 Balance 80 200 - Physical Examination General/Neuro: alert & oriented x3 Neck: no JVD present Lungs: other: (diminished at bases) Heart: RRR Abdomen: soft Extremities: other: (edema Lt>Rt) - Telemetry Telemetry Rhythm: AV paced - Labs Result Diagrams: 07/16/17 04:55 07/16/17 04:55 Troponin/CKMB CK-MB (CK-2) 3.7 ng/mL (0-6.6) 07/13/17 18:02 Troponin I 0.093 ng/mL (< 0.028) H 07/14/17 08:50 - Assessment/Plan 1. Chronic combined HF - stable with holding diuretic and mild hydration; cont. monitor 2. Dilated CMY with hx of AICD - stable; 3. CKD stage 4 - slightly improving; managed by manipulator operator 4. BLE edema Lt> Rt with Hx of DVTs - Instructed to elevate his BLE; on Coumadin 5. HTN - stable 6. Hypothyroidism - managed by PCP 7. Pain in Lt shoulder and back - improving; Xray on 07/15/17 showed no evidence abnormalities in his Lt shoulder and mod degenerative changes of the cervical spine; MAR reviewed * Echo on 07/14/17 showed EF 40-45%, mod LA dilation, mild-mod MR, mild AR, mild TR. Review of Systems - Review of Systems Constitutional: reports: weakness EENTM: reports: no symptoms reported Respiratory: reports: no symptoms reported Cardiac (ROS): reports: no symptoms reported ABD/GI: reports: no symptoms reported : reports: no symptoms reported Musculoskeletal: reports: see HPI <Dennis Rodríguez - Last Filed: 07/16/17 22:18> Cardiology Progress Note - Objective Vital Signs Temp Pulse Pulse Resp BP BP BP 07/16/17 21:10 97.7 F 80 20 132/62 07/16/17 15:40 80 16 117/66 07/16/17 11:20 97.4 F L 80 20 114/66 07/16/17 10:17 80 124/61 Pulse Ox 07/16/17 21:10 97 07/16/17 15:40 97 07/16/17 11:20 94 L 07/16/17 10:17 Admit Weight 212 lb 12.8 oz Weight 220 lb 1.6 oz 07/15/17 07/16/17 07/17/17 06:59 06:59 06:59 Intake Total 1860 1550 898 Output Total 1780 1350 725 Balance 80 200 173 - Labs Result Diagrams: 07/16/17 04:55 07/16/17 04:55 Troponin/CKMB CK-MB (CK-2) 3.7 ng/mL (0-6.6) 07/13/17 18:02 Troponin I 0.093 ng/mL (< 0.028) H 07/14/17 08:50 - Assessment/Plan Pt. was seen and eval. by me. I agree with the A/P by the RECOVERY ROOM RN. Chest clear. RRR. 2-3+ lower extremity edema. Left neck and shoulder pain is improved.
--- NOTE | 2017-07-16 16:34 | PRG ---
NEPHROLOGY PROGRESS NOTE DATE OF SERVICE: 07/16/2017 DATE OF SERVICE: SUBJECTIVE: Patient was seen and examined at bedside and overnight events noted. Patient denies any shortness of breath or chest pain or palpitation. No history of nausea or vomiting or diarrhea or f ever or chills or cramps. OBJECTIVE: GENERAL: This is an elderly male in no apparent distress. VITAL SIGNS: Temperature is 97.4, pulse 80, respiratory rate 18 and blood pressure 114/66. HEENT: Atraumatic, normocephalic. Oral mucosa is moist. NECK: Supple. CARDIOVASCULAR: S1, S2 heard. Rate and rhythm regular. RESPIRATORY: Clear to auscultation. GASTROINTESTINAL: Abdomen is soft. MUSCULOSKELETAL: No tenderness. No edema. DERMATOLOGIC: No skin rash. NEUROLOGIC: Alert and awake and oriented x3. No focal neurologic deficits. Moving all the extremit ies. PSYCHIATRIC: Mood and affect normal. LABORATORY DATA: Potassium is 3.4, BUN is 59 and creatinine is 4.1. ASSESSMENT AND PLAN: 1. Acute kidney injury on chronic kidney stage IV. Renal function continues to get better, most lik eloy from volume depletion. 2. Hypertension. 3. Hyperkalemia, better. 4. Alkalosis. 5. Edema. 6. History of fluid overload. We will monitor closely. 7. Continue hydration and avoid nephrotoxins. We will follow. Renal function is slowly getting bet ter.
[2017-07-16] MEDS: Warfarin Sodium 5 MG TAB PO SCH (17:44)
[2017-07-16] MEDS: Lidocaine Patch Removal 1 EACH TOP SCH (17:44)
[2017-07-16] MEDS: Sodium Chloride 0.9% 10 ML ONE ×2 (20:23→21:14)
[2017-07-17] MEDS: HYDROcodone/Acetaminophen 5/325 mg Tablet PO PRN ×4 (02:21→20:59)
[2017-07-17 05:28] LABS: INR-International Normal Ratio 2.5; Prothrombin Time 28.4 SEC (12.0-14.7)
[2017-07-17 05:40] LABS: Anion Gap 14 mmol/L (10-20); BUN (Urea Nitrogen) 52 mg/dL (8.4-25.7); Calc. Creatinine Clearance 21 mL/min (70-130); Calcium 8.9 mg/dL (7.8-10.44); Carbon Dioxide 27 mmol/L (23-31); Chloride 89 mmol/L (98-107); Estimated GFR-MDRD 17; Glucose 102 mg/dL (83-110); Potassium 3.3 mmol/L (3.5-5.1); Sodium 127 mmol/L (136-145)
[2017-07-17 05:49] LABS: Band 5 % (5-11); Eosinophils 4 % (0-10); Hemoglobin 14.1 g/dL (14.0-18.0); Lymphocytes 28 % (21-51); MDiff Complete? YES; Mean Corpuscular HGB CONC 34.1 g/dL (32.0-36.0); Mean Corpuscular Hemoglobin 31.9 pg (27.0-31.0); Mean Corpuscular Volume 93.3 fl (80.0-94.0); Mean Platelet Volume 8.3 fL (7.4-10.4); Monocytes 6 % (0-10); Neutrophil 55 % (42-75); PLT Morphology Comment Appears Adequate; Platelet Count 149 thou/uL (130-400); RBC Distribution Width 12.8 % (11.5-14.5); Reactive Lymphocytes 2 % (0-10); Red Blood Cell (RBC) Count 4.44 mill/uL (4.70-6.10); White Blood Cell (WBC) Count 5.6 thou/uL (4.8-10.8)
[2017-07-17] MEDS: Levothyroxine Sodium 88 MCG TAB PO SCH (06:16)
[2017-07-17] MEDS: Lidocaine 5% Patch TD SCH (06:16)
[2017-07-17] MEDS ORDERED: Sodium Chloride 0.9% 10 ML ONE (07:36)
[2017-07-17] MEDS: Famotidine 20 MG TAB PO SCH (09:25)
[2017-07-17] MEDS: Folic Acid 1 MG TAB PO SCH (09:25)
[2017-07-17] MEDS: Polyethylene Glycol 3350 17 GM Packet PO SCH (09:25)
[2017-07-17] MEDS: busPIRone HCl 10 MG TAB PO SCH ×3 (09:25→21:03)
[2017-07-17] MEDS: Gabapentin 100 MG CAP PO SCH ×2 (09:25→21:03)
[2017-07-17] MEDS: Carvedilol 3.125 MG TAB PO SCH ×2 (09:25→21:03)
[2017-07-17] MEDS: Cyanocobalamin (Vitamin B-12) 1,000 MCG TAB PO SCH (09:25)
[2017-07-17] MEDS: Acetaminophen 325 MG TAB PO SCH ×3 (09:25→21:03)
[2017-07-17] MEDS ORDERED: Potassium Chloride 20 MEQ TAB PO SCH (11:15)
--- NOTE | 2017-07-17 12:27 | PRG ---
DATE OF SERVICE: 07/17/2017 SUBJECTIVE: Patient was seen and examined at bedside and overnight events noted. Patient denies any shortness of breath or chest pain or palpitation. No history of nausea or vomitin g or diarrhea or fever or chills or cramps. OBJECTIVE: GENERAL: This is an elderly white male, in no apparent distress. VITAL SIGNS: Temperature 97.6, pulse 80, respiratory rate 18, blood pressure 129/67. HEENT: Atraumatic, normocephalic. Oral mucosa is moist NECK: Supple. CARDIOVASCULAR: S1 and S2 heard. Rate and rhythm regular. RESPIRATORY: Clear to auscultation. GASTROINTESTINAL: Abdomen is soft. MUSCULOSKELETAL: 2+ edema. DERMATOLOGIC: No skin rash. NEUROLOGIC: Alert and awake and oriented X3, No focal neurologic deficits. Moving all the extremitie s. PSYCHIATRIC: Mood and affect normal. LABORATORY DATA: Potassium is 3.3, BUN is 52, creatinine 3.4. ASSESSMENT AND PLAN: 1. Acute kidney injury on chronic kidney stage IV. Renal function with significant improvement, but patient is edematous, I have to start back on Lasix. He is on metolazone and torsemide 100 mg p.o. daily. We will start on Lasix 40 mg p.o. b.i.d. with close monitoring of renal function. 2. Hypokalemia. I will start supplements with close monitor. We will check magnesium level in the morning. 3. Alkalosis. 4. Edema. We will start on Lasix. 5. Cardiorenal syndrome. 6. Fluid overload. Plan is to start back on Lasix as tolerated. I will follow.
--- NOTE | 2017-07-17 13:43 | PDOC.PN ---
- Subjective Encounter Start Date: 07/17/17 Encounter Start Time: 13:35 Subjective: f/u for CHARI/CKD and multifactorial weakness. Overall doing better but feels -: weak and not ambulating much. - Objective Resuscitation Status: Resuscitation Status FULL:Full Resuscitation MAR Reviewed: Yes Vital Signs & Weight: Vital Signs (12 hours) Temp Pulse Resp BP BP Pulse Ox 07/17/17 11:45 80 20 127/58 L 94 L 07/17/17 07:00 97.6 F 80 18 129/66 07/17/17 04:07 94 L 07/17/17 04:00 97.3 F L 80 17 138/63 94 L Weight Admit Weight 212 lb 12.8 oz Weight 222 lb 3.2 oz I&O: 07/16/17 07/17/17 07/18/17 06:59 06:59 07:59 Intake Total 1550 1358 Output Total 1350 1025 Balance 200 333 Result Diagrams: 07/17/17 04:26 07/17/17 04:26 Additional Labs: Microbiology 07/13/17 18:01 Venous blood - Right Arm Blood Culture - Preliminary NO GROWTH AT 48 HOURS 07/13/17 18:01 Venous blood - Left Arm Blood Culture - Preliminary NO GROWTH AT 48 HOURS Laboratory Tests 05/15/15 05/16/15 07/14/17 09:42 09:28 08:50 INR 2.0 2.3 PT Sodium 132 L Creatinine 5.22 H 07/15/17 07/16/17 07/16/17 05:07 04:55 04:55 INR 1.9 PT 22.8 H Sodium 132 L 131 L Creatinine 4.67 H 4.11 H 07/17/17 04:26 INR 2.5 PT 28.4 H Sodium Creatinine Radiology Reviewed by me: Yes (2D echo - EF 40-45%, LAE, mod MR) EKG Reviewed by me: Yes (Tele - AV pacing) Phys Exam - Physical Examination Constitutional: NAD HEENT: PERRLA, oral pharynx no lesions Neck: no JVD, supple diminished in bases Respiratory: clear to auscultation bilateral Cardiovascular: RRR obese Gastrointestinal: soft, non-tender, no distention, positive bowel sounds Musculoskeletal: pulses present, edema present Neurological: normal sensation, moves all 4 limbs Psychiatric: A&O x 3 Skin: normal turgor, cap refill <2 seconds Dx/Plan (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 Code(s): I50.40 - UNSP COMBINED SYSTOLIC AND DIASTOLIC (CONGESTIVE) HRT FAIL Status: Chronic Comment: Weight up 10lbs since admit, continue Lasix 40mg IV q12h, EF 40-45%, likely Cardiorenal syndrome (2) General weakness Code(s): R53.1 - WEAKNESS Status: Chronic (3) Left shoulder pain Code(s): M25.512 - PAIN IN LEFT SHOULDER Status: Chronic Qualifiers: Chronicity: chronic Qualified Code(s): M25.512 - Pain in left shoulder; G89.29 - Other chronic pain; G89.29 - Other chronic pain (4) Obesity Code(s): E66.9 - OBESITY, UNSPECIFIED Status: Chronic (5) Acute renal failure superimposed on stage 4 chronic kidney disease Code(s): N17.9 - ACUTE KIDNEY FAILURE, UNSPECIFIED; N18.4 - CHRONIC KIDNEY DISEASE, STAGE 4 (SEVERE) Status: Acute Comment: Improved but over- correction with volume overload, continue Lasix 40mg IV q12h, appreciate Nephrology assistance (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 * AM lab: BMP, PT/INR, Mg++
[2017-07-17] MEDS: Furosemide 40 MG TAB PO SCH (15:17)
[2017-07-17] MEDS ORDERED: guaiFENesin/Dextromethorphan 10 ML UDCUP PO PRN (15:46)
[2017-07-17] MEDS: Lidocaine Patch Removal 1 EACH TOP SCH (17:00)
[2017-07-17] MEDS: Warfarin Sodium 5 MG TAB PO SCH (18:00)
[2017-07-17] MEDS: Guaifenesin DM 100-10/5 ML UDCUP PO PRN ×2 (18:00→23:33)
--- NOTE | 2017-07-17 19:03 | EKG ---
Test Reason : Blood Pressure : / mmHG Vent. Rate : 080 BPM Atrial Rate : 080 BPM P-R Int : 000 ms QRS Dur : 184 ms QT Int : 504 ms P-R-T Axes : 000 182 052 degrees QTc Int : 581 ms AV sequential or dual chamber electronic pacemaker Confirmed by RENEE TARANGO, JULIO CESAR ([id number]), greeting card editor KATHRYN ARELLANO ([id number]) on 07/17/2017 7:02:27 PM Referred By: Confirmed By:JULIO CESAR DURAN MD
[2017-07-17 23:46] LABS: INR-International Normal Ratio 2.8; Prothrombin Time 30.9 SEC (12.0-14.7)
[2017-07-17 23:47] LABS: PTT 75.4 SEC (22.9-36.1)
[2017-07-18 00:03] LABS: Hemoglobin 14.2 g/dL (14.0-18.0); Platelet Count 163 thou/uL (130-400)
[2017-07-18 05:47] LABS: INR-International Normal Ratio 2.9
[2017-07-18 05:49] LABS: Anion Gap 11 mmol/L (10-20); BUN (Urea Nitrogen) 46 mg/dL (8.4-25.7); Calc. Creatinine Clearance 23 mL/min (70-130); Calcium 9.2 mg/dL (7.8-10.44); Carbon Dioxide 31 mmol/L (23-31); Chloride 84 mmol/L (98-107); Estimated GFR-MDRD 18; Glucose 104 mg/dL (83-110); Potassium 3.4 mmol/L (3.5-5.1); Sodium 123 mmol/L (136-145)
[2017-07-18] MEDS: Lidocaine 5% Patch TD SCH (06:02)
[2017-07-18] MEDS: HYDROcodone/Acetaminophen 5/325 mg Tablet PO PRN (06:02)
[2017-07-18] MEDS: Levothyroxine Sodium 88 MCG TAB PO SCH (06:03)
[2017-07-18] MEDS ORDERED: Potassium Chloride 20 MEQ TAB PO SCH (08:00)
[2017-07-18] MEDS: Polyethylene Glycol 3350 17 GM Packet PO SCH (09:18)
[2017-07-18] MEDS: Carvedilol 3.125 MG TAB PO SCH ×2 (09:19→21:16)
[2017-07-18] MEDS: Furosemide 40 MG TAB PO SCH ×2 (09:19→15:26)
[2017-07-18] MEDS: Famotidine 20 MG TAB PO SCH (09:19)
[2017-07-18] MEDS: busPIRone HCl 10 MG TAB PO SCH ×3 (09:19→21:16)
[2017-07-18] MEDS: Gabapentin 100 MG CAP PO SCH ×2 (09:19→21:16)
[2017-07-18] MEDS: Folic Acid 1 MG TAB PO SCH (09:20)
[2017-07-18] MEDS: Acetaminophen 325 MG TAB PO SCH ×3 (09:20→21:16)
[2017-07-18] MEDS: Cyanocobalamin (Vitamin B-12) 1,000 MCG TAB PO SCH (09:20)
--- NOTE | 2017-07-18 12:33 | PDOC.PN ---
- Subjective Encounter Start Date: 07/18/17 Encounter Start Time: 12:30 Subjective: f/u for CHARI/CKD with improved renal fxn. Remains weak with limited -: mobility. Weight continues to increase despite Lasix. - Objective Resuscitation Status: Resuscitation Status FULL:Full Resuscitation MAR Reviewed: Yes Vital Signs & Weight: Vital Signs (12 hours) Temp Pulse Resp BP BP BP Pulse Ox 07/18/17 09:10 98.3 F 87 20 107/56 L 110/72 93 L 07/18/17 04:00 97.4 F L 80 18 122/58 L 96 Weight Admit Weight 212 lb 12.8 oz Weight 225 lb 8 oz I&O: 07/17/17 07/18/17 07/19/17 05:59 06:59 06:59 Intake Total 540 Output Total Balance 540 Result Diagrams: 07/17/17 23:20 07/18/17 05:22 Additional Labs: Microbiology 07/13/17 18:01 Venous blood - Right Arm Blood Culture - Preliminary NO GROWTH AT 48 HOURS 07/13/17 18:01 Venous blood - Left Arm Blood Culture - Preliminary NO GROWTH AT 48 HOURS Laboratory Tests 05/15/15 05/16/15 07/13/17 09:42 09:28 17:55 INR 2.0 2.3 PT Sodium Potassium Creatinine Troponin I TSH 3rd Generation 0.2945 L 07/13/17 07/13/17 07/13/17 18:02 18:02 20:50 INR PT Sodium 129 L Potassium 2.8 L* Creatinine 5.94 H Troponin I 0.110 H 0.128 H TSH 3rd Generation 07/14/17 07/14/17 07/15/17 00:18 08:50 05:07 INR PT Sodium 132 L 132 L Potassium Creatinine 5.22 H 4.67 H Troponin I 0.099 H TSH 3rd Generation 07/16/17 07/16/17 07/17/17 04:55 04:55 04:26 INR 1.9 2.5 PT 22.8 H 28.4 H Sodium 131 L Potassium Creatinine 4.11 H Troponin I TSH 3rd Generation Laboratory Tests 05/15/15 05/16/15 07/17/17 09:42 09:28 04:26 INR 2.0 2.3 2.5 07/18/17 05:22 INR 2.9 EKG Reviewed by me: Yes (Tele - AV pacing) Phys Exam - Physical Examination Constitutional: NAD HEENT: PERRLA, oral pharynx no lesions Neck: no JVD, supple diminished in bases Respiratory: clear to auscultation bilateral Cardiovascular: RRR distended Gastrointestinal: non-tender, positive bowel sounds Musculoskeletal: pulses present, edema present Neurological: normal sensation, moves all 4 limbs Psychiatric: A&O x 3 Skin: normal turgor, cap refill <2 seconds Dx/Plan (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 Code(s): I50.40 - UNSP COMBINED SYSTOLIC AND DIASTOLIC (CONGESTIVE) HRT FAIL Status: Chronic Comment: Weight up +10lbs since admit, continue Lasix 40mg IV q12h, EF 40-45%, likely Cardiorenal syndrome (2) General weakness Code(s): R53.1 - WEAKNESS Status: Chronic (3) Left shoulder pain Code(s): M25.512 - PAIN IN LEFT SHOULDER Status: Chronic Qualifiers: Chronicity: chronic Qualified Code(s): M25.512 - Pain in left shoulder; G89.29 - Other chronic pain; G89.29 - Other chronic pain (4) Obesity Code(s): E66.9 - OBESITY, UNSPECIFIED Status: Chronic (5) Acute renal failure superimposed on stage 4 chronic kidney disease Code(s): N17.9 - ACUTE KIDNEY FAILURE, UNSPECIFIED; N18.4 - CHRONIC KIDNEY DISEASE, STAGE 4 (SEVERE) Status: Acute Comment: Improved but over- correction with volume overload, continue Lasix 40mg IV q12h, appreciate Nephrology assistance (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 Code(s): E23.6 - OTHER DISORDERS OF PITUITARY GLAND Status: Acute Comment: continue levothyroxine and hydrocortisone (7) Hypertension Code(s): I10 - ESSENTIAL (PRIMARY) HYPERTENSION Status: Chronic Qualifiers: Hypertension type: essential hypertension Qualified Code(s): I10 - Essential (primary) hypertension Comment: Stable, continue current BP regimen (8) Hyponatremia Code(s): E87.1 - HYPO-OSMOLALITY AND HYPONATREMIA Status: Acute Comment: Suspect acute component due to volume fluctuations, fluid restrict 1.2L/24h, serial monitoring - Plan PT/OT, healthcare social worker, out of bed/ambulate Stable overall -: Continue Lasix 40mg IV q12h -: Fluid restriction 1.2L/24h -: PT for mobilization -: Hold Coumadin x 24h * AM lab: H/H, PT/INR
--- NOTE | 2017-07-18 13:15 | PRG ---
DATE OF SERVICE: 07/18/2017 SUBJECTIVE: Patient was seen and examined at bedside and overnight events noted. Patient denies any shortness of breath or chest pain or palpitation. No history of nausea or vomiting or diarrhea or f ever or chills or cramps. OBJECTIVE: GENERAL: This is an elderly male in no apparent distress. VITAL SIGNS: Temperature 98.7, pulse 80, blood pressure 132/60. HEENT: Atraumatic, normocephalic. Oral mucosa is moist. Neck: Supple Cardiovascular: S1 and S2 heard. Rate and rhythm regular. Respiratory: Clear to auscultation. Gastrointestinal: Abdomen is soft. Musculoskeletal: No tenderness, no edema. Dermatologic: No skin rash. Neurologic: Alert and awake and oriented x3. No focal neurologic deficits. Moving all the extremit ies. Psychiatric: Mood and affect normal. LABORATORY DATA: Potassium is 3.4, BUN is 46, creatinine is 3.2. ASSESSMENT AND PLAN: 1. Acute kidney injury, on chronic kidney disease stage 4. Renal function with slow improvement. 2. Hyponatremia. We will stop IV fluids and limit fluid intake. We will continue on Lasix. 3. Cardiorenal syndrome, on Lasix. 4. Edema, on Lasix. 5. Replace potassium and continue on Lasix as tolerated.
[2017-07-18] MEDS: Lidocaine Patch Removal 1 EACH TOP SCH (18:13)
[2017-07-18 22:57] LABS: INR-International Normal Ratio 3.4; Prothrombin Time 35.8 SEC (12.0-14.7)
[2017-07-19] MEDS: Lidocaine 5% Patch TD SCH (03:59)
[2017-07-19] MEDS: Levothyroxine Sodium 88 MCG TAB PO SCH (05:28)
--- NOTE | 2017-07-19 07:55 | PDOC.PN ---
- Subjective Encounter Start Date: 07/19/17 Encounter Start Time: 07:53 Subjective: back urts, L shoulder hurts. minimal sob - Objective Resuscitation Status: Resuscitation Status FULL:Full Resuscitation MAR Reviewed: Yes Vital Signs & Weight: Vital Signs (12 hours) Temp Pulse Resp BP BP Pulse Ox 07/19/17 03:57 97.7 F 80 20 130/57 L 98 07/18/17 20:00 98.4 F 81 22 H 130/86 95 Weight Admit Weight 212 lb 12.8 oz Weight 226 lb I&O: 07/18/17 07/19/17 07/20/17 06:59 06:59 06:59 Intake Total 1750 Output Total 1680 Balance 70 Result Diagrams: 07/17/17 23:20 07/18/17 05:22 Phys Exam - Physical Examination Neck: no JVD Respiratory: clear to auscultation bilateral Cardiovascular: RRR, no significant murmur Gastrointestinal: soft, positive bowel sounds 3+ leg edema Dx/Plan (1) Hyponatremia Code(s): E87.1 - HYPO-OSMOLALITY AND HYPONATREMIA Status: Acute Comment: Suspect acute component due to volume fluctuations, fluid restrict 1.2L/24h, serial monitoring (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 Code(s): I50.40 - UNSP COMBINED SYSTOLIC AND DIASTOLIC (CONGESTIVE) HRT FAIL Status: Chronic Comment: Weight up +10lbs since admit, continue Lasix 40mg IV q12h, EF 40-45%, likely Cardiorenal syndrome (3) General weakness Code(s): R53.1 - WEAKNESS Status: Chronic (4) Left shoulder pain Code(s): M25.512 - PAIN IN LEFT SHOULDER Status: Chronic Qualifiers: Chronicity: chronic Qualified Code(s): M25.512 - Pain in left shoulder; G89.29 - Other chronic pain; G89.29 - Other chronic pain (5) Acute renal failure superimposed on stage 4 chronic kidney disease Code(s): N17.9 - ACUTE KIDNEY FAILURE, UNSPECIFIED; N18.4 - CHRONIC KIDNEY DISEASE, STAGE 4 (SEVERE) Status: Acute Comment: Improved but over- correction with volume overload, continue Lasix 40mg IV q12h, appreciate Nephrology assistance (6) Hypertension Code(s): I10 - ESSENTIAL (PRIMARY) HYPERTENSION Status: Chronic Qualifiers: Hypertension type: essential hypertension Qualified Code(s): I10 - Essential (primary) hypertension Comment: Stable, continue current BP regimen (7) Hypothyroidism Code(s): E03.9 - HYPOTHYROIDISM, UNSPECIFIED Status: Chronic Qualifiers: Hypothyroidism type: postoperative Qualified Code(s): E89.0 - Postprocedural hypothyroidism - Plan acute renal failure improved -: Wt, edema increased, difficult situation with severe compromise of renal -: 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 discuss with renal, card -: Hx of hypopit, check cotisol, free T3,T4 * .
[2017-07-19] MEDS: Polyethylene Glycol 3350 17 GM Packet PO SCH (07:57)
[2017-07-19] MEDS: Gabapentin 100 MG CAP PO SCH ×2 (07:57→20:21)
[2017-07-19] MEDS: Folic Acid 1 MG TAB PO SCH (07:57)
[2017-07-19] MEDS: Carvedilol 3.125 MG TAB PO SCH ×2 (07:58→20:21)
[2017-07-19] MEDS: Cyanocobalamin (Vitamin B-12) 1,000 MCG TAB PO SCH (07:58)
[2017-07-19] MEDS: Furosemide 40 MG TAB PO SCH ×2 (07:58→14:33)
[2017-07-19] MEDS: busPIRone HCl 10 MG TAB PO SCH ×3 (07:58→20:21)
[2017-07-19] MEDS: Famotidine 20 MG TAB PO SCH (07:58)
[2017-07-19] MEDS: Acetaminophen 325 MG TAB PO SCH ×3 (07:58→20:21)
[2017-07-19 08:53] LABS: Free T4 (Free Thyroxine) 0.91 ng/dL (0.70-1.48)
[2017-07-19 10:21] LABS: Anion Gap 13 mmol/L (10-20); BUN (Urea Nitrogen) 41 mg/dL (8.4-25.7); Calc. Creatinine Clearance 23 mL/min (70-130); Calcium 9.3 mg/dL (7.8-10.44); Carbon Dioxide 30 mmol/L (23-31); Chloride 85 mmol/L (98-107); Estimated GFR-MDRD 18; Glucose 90 mg/dL (83-110); Potassium 3.7 mmol/L (3.5-5.1); Sodium 124 mmol/L (136-145)
--- NOTE | 2017-07-19 13:11 | PRG ---
DATE OF SERVICE: 07/19/2017 SUBJECTIVE: This is an 86-year-old gentleman being seen for acute kidney injury and CKD. Patient de nies any nausea, vomiting, or chest pain. PHYSICAL EXAMINATION: GENERAL: Patient is awake. VITAL SIGNS: Afebrile, pulse 80, breathing 16, blood pressure 126/58. HEAD/NECK: Normocephalic. Atraumatic. EYES: EOMI. No deformity. EARS: Clear. No ulcers. NOSE: Intact. No lesions. MOUTH: Clear. No discharge. THROAT: Clear. No exudate. LUNGS: Clear. No crackles. CARDIAC: S1, S2. No rub. ABDOMEN: Benign. BS+. GENITALIA/RECTUM: Shabazz absent. BACK/EXTREMITIES: Edema 0+ Ulcer- NEUROLOGICAL: Alert and motor intact. SKIN: Rash- Bruise- LYMPHATICS: Edema- Ulcer- LABORATORY DATA: Sodium 124, creatinine 3.3. ASSESSMENT AND RECOMMENDATIONS: 1. Acute kidney injury, chronic kidney disease, no indication for dialysis. 2. Hypertension, stable. 3. Anemia, stable. 4. Medications based on GFR are appropriate. 5. Hypokalemia, resolved.
--- NOTE | 2017-07-19 15:50 | PDOC.EVN ---
Event Note - Event Note Event Note: cotisol very low-addisons disease/start solucrteff
[2017-07-19 15:52] LABS: INR-International Normal Ratio 3.2; Prothrombin Time 33.8 SEC (12.0-14.7)
[2017-07-19] MEDS ORDERED: Hydrocortisone Sod Succ/PF 100 mg/2 ml Vial IVP SCH (16:00)
[2017-07-19] MEDS ORDERED: WARFARIN PO PRN (16:02)
[2017-07-19] MEDS: Lidocaine Patch Removal 1 EACH TOP SCH (16:22)
--- NOTE | 2017-07-19 17:01 | RAD ---
AP VIEW CHEST: Date: 07/19/17 HISTORY: Congestive heart failure. FINDINGS: Comparison made to previous exam from 08/02/17. AP view of chest obtained and demonstrates a dual lead intracardiac defibrillator. Lungs are well aer ated. No evidence of active intrathoracic disease seen. No evidence of effusions, pneumonia, or pneum othorax seen. IMPRESSION: Unremarkable AP view of chest. POS: [facility]
[2017-07-19] MEDS: Hydrocortisone Sod Succ/PF 100 mg/2 ml Vial IVP SCH (20:21)
[2017-07-19 23:20] LABS: Hemoglobin 14.2 g/dL (14.0-18.0); Platelet Count 183 thou/uL (130-400)
[2017-07-20] MEDS: Lidocaine 5% Patch TD SCH (04:48)
[2017-07-20] MEDS: Levothyroxine Sodium 88 MCG TAB PO SCH (04:49)
[2017-07-20 05:40] LABS: Anion Gap 16 mmol/L (10-20); BUN (Urea Nitrogen) 41 mg/dL (8.4-25.7); Calc. Creatinine Clearance 23 mL/min (70-130); Calcium 9.5 mg/dL (7.8-10.44); Carbon Dioxide 28 mmol/L (23-31); Chloride 86 mmol/L (98-107); Estimated GFR-MDRD 18; Glucose 145 mg/dL (83-110); INR-International Normal Ratio 2.9; Potassium 4.3 mmol/L (3.5-5.1); Prothrombin Time 31.1 SEC (12.0-14.7); Sodium 126 mmol/L (136-145)
--- NOTE | 2017-07-20 07:33 | PDOC.PN ---
- Subjective Encounter Start Date: 07/20/17 Encounter Start Time: 07:32 Subjective: urinary frequency - Objective Resuscitation Status: Resuscitation Status FULL:Full Resuscitation MAR Reviewed: Yes Vital Signs & Weight: Vital Signs (12 hours) Temp Pulse Resp BP BP Pulse Ox 07/20/17 03:43 97.8 F 83 18 128/58 L 98 07/20/17 00:14 97.4 F L 83 18 175/79 H 99 07/19/17 20:14 98.0 F 80 18 137/64 99 07/19/17 20:00 98.0 F 80 18 99 Weight Admit Weight 212 lb 12.8 oz Weight 221 lb 9.6 oz I&O: 07/19/17 07/20/17 07/21/17 06:59 06:59 06:59 Intake Total 1750 840 Output Total 1680 1725 Balance 70 -885 Result Diagrams: 07/19/17 23:05 07/20/17 05:07 Phys Exam - Physical Examination Neck: no JVD Respiratory: clear to auscultation bilateral Cardiovascular: RRR, no significant murmur Gastrointestinal: soft, non-tender, positive bowel sounds 3+ edema Dx/Plan (1) Hyponatremia Code(s): E87.1 - HYPO-OSMOLALITY AND HYPONATREMIA Status: Acute Comment: Suspect acute component due to volume fluctuations, fluid restrict 1.2L/24h, serial monitoring (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 Code(s): I50.40 - UNSP COMBINED SYSTOLIC AND DIASTOLIC (CONGESTIVE) HRT FAIL Status: Chronic Comment: Weight up +10lbs since admit, continue Lasix 40mg IV q12h, EF 40-45%, likely Cardiorenal syndrome (3) General weakness Code(s): R53.1 - WEAKNESS Status: Chronic (4) Left shoulder pain Code(s): M25.512 - PAIN IN LEFT SHOULDER Status: Chronic Qualifiers: Chronicity: chronic Qualified Code(s): M25.512 - Pain in left shoulder; G89.29 - Other chronic pain; G89.29 - Other chronic pain (5) Acute renal failure superimposed on stage 4 chronic kidney disease Code(s): N17.9 - ACUTE KIDNEY FAILURE, UNSPECIFIED; N18.4 - CHRONIC KIDNEY DISEASE, STAGE 4 (SEVERE) Status: Acute Comment: Improved but over- correction with volume overload, continue Lasix 40mg IV q12h, appreciate Nephrology assistance (6) Hypertension Code(s): I10 - ESSENTIAL (PRIMARY) HYPERTENSION Status: Chronic Qualifiers: Hypertension type: essential hypertension Qualified Code(s): I10 - Essential (primary) hypertension Comment: Stable, continue current BP regimen (7) Hypothyroidism Code(s): E03.9 - HYPOTHYROIDISM, UNSPECIFIED Status: Chronic Qualifiers: Hypothyroidism type: postoperative Qualified Code(s): E89.0 - Postprocedural hypothyroidism (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
[2017-07-20] MEDS: Cyanocobalamin (Vitamin B-12) 1,000 MCG TAB PO SCH (08:57)
[2017-07-20] MEDS: Furosemide 40 MG TAB PO SCH ×2 (08:57→14:11)
[2017-07-20] MEDS: Famotidine 20 MG TAB PO SCH (08:57)
[2017-07-20] MEDS: busPIRone HCl 10 MG TAB PO SCH ×3 (08:57→20:35)
[2017-07-20] MEDS: Carvedilol 3.125 MG TAB PO SCH ×2 (08:57→20:35)
[2017-07-20] MEDS: Acetaminophen 325 MG TAB PO SCH ×3 (08:57→20:35)
[2017-07-20] MEDS: Folic Acid 1 MG TAB PO SCH (08:57)
[2017-07-20] MEDS: Gabapentin 100 MG CAP PO SCH ×2 (08:58→20:35)
[2017-07-20] MEDS: Hydrocortisone Sod Succ/PF 100 mg/2 ml Vial IVP SCH ×2 (08:58→20:36)
[2017-07-20] MEDS: Polyethylene Glycol 3350 17 GM Packet PO SCH (09:20)
--- NOTE | 2017-07-20 09:35 | PRG ---
DATE OF SERVICE: 07/20/2017 SUBJECTIVE: This is an 86-year-old gentleman being seen for acute kidney injury. The patient denies any nausea, vomiting, or chest pain. PHYSICAL EXAMINATION: GENERAL: The patient is awake and alert. VITAL SIGNS: Afebrile, pulse 84, breathing 16, blood pressure 128/50. HEAD/NECK: Normocephalic. Atraumatic. EYES: EOMI. No deformity. EARS: Clear. No ulcers. NOSE: Intact. No lesions. MOUTH: Clear. No discharge. THROAT: Clear. No exudate. LUNGS: Clear. No crackles. CARDIAC: S1, S2. No rub. ABDOMEN: Benign. BS+. GENITALIA/RECTUM: Shabazz absent. BACK/EXTREMITIES: Edema 0+ Ulcer- NEUROLOGICAL: Alert and motor intact. SKIN: Rash- Bruise- LYMPHATICS: Edema- Ulcer- LABORATORY DATA: Show hemoglobin 14.2, creatinine 3.2. ASSESSMENT AND RECOMMENDATIONS: 1. Acute kidney injury with chronic kidney disease, stable. 2. Hyponatremia, improved. 3. Hypokalemia, stable. No indication for dialysis. We will follow renal function closely.
[2017-07-20] MEDS: Lidocaine Patch Removal 1 EACH TOP SCH (16:52)
[2017-07-20] MEDS ORDERED: Warfarin Sodium 3 MG TAB PO SCH (17:00)
[2017-07-21] MEDS: Lidocaine 5% Patch TD SCH (05:11)
[2017-07-21] MEDS: Levothyroxine Sodium 88 MCG TAB PO SCH (05:11)
[2017-07-21 05:31] LABS: INR-International Normal Ratio 2.7; Prothrombin Time 29.6 SEC (12.0-14.7)
[2017-07-21 05:53] LABS: Anion Gap 16 mmol/L (10-20); BUN (Urea Nitrogen) 44 mg/dL (8.4-25.7); Calc. Creatinine Clearance 24 mL/min (70-130); Calcium 9.1 mg/dL (7.8-10.44); Carbon Dioxide 27 mmol/L (23-31); Chloride 87 mmol/L (98-107); Estimated GFR-MDRD 19; Glucose 125 mg/dL (83-110); Potassium 3.6 mmol/L (3.5-5.1); Sodium 126 mmol/L (136-145)
--- NOTE | 2017-07-21 08:23 | PDOC.PN ---
- Subjective Encounter Start Date: 07/21/17 Encounter Start Time: 08:21 Subjective: much stronger, more alert - Objective Resuscitation Status: Resuscitation Status FULL:Full Resuscitation MAR Reviewed: Yes Vital Signs & Weight: Vital Signs (12 hours) Temp Pulse Resp BP Pulse Ox 07/21/17 07:45 97.7 F 82 18 116/61 97 07/21/17 04:00 97.9 F 89 20 124/60 95 Weight Admit Weight 212 lb 12.8 oz Weight 223 lb 3.2 oz I&O: 07/20/17 07/21/17 07/22/17 06:59 06:59 06:59 Intake Total 840 1120 Output Total 1725 1600 Balance -885 -480 Result Diagrams: 07/19/17 23:05 07/21/17 04:12 Phys Exam - Physical Examination Neck: no JVD Respiratory: clear to auscultation bilateral Cardiovascular: RRR, no significant murmur Gastrointestinal: soft, non-tender, positive bowel sounds 3+ edema Dx/Plan (1) Hyponatremia Code(s): E87.1 - HYPO-OSMOLALITY AND HYPONATREMIA Status: Acute Comment: Suspect acute component due to volume fluctuations, fluid restrict 1.2L/24h, serial monitoring (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 Code(s): I50.40 - UNSP COMBINED SYSTOLIC AND DIASTOLIC (CONGESTIVE) HRT FAIL Status: Chronic Comment: Weight up +10lbs since admit, continue Lasix 40mg IV q12h, EF 40-45%, likely Cardiorenal syndrome (3) General weakness Code(s): R53.1 - WEAKNESS Status: Chronic (4) Left shoulder pain Code(s): M25.512 - PAIN IN LEFT SHOULDER Status: Chronic Qualifiers: Chronicity: chronic Qualified Code(s): M25.512 - Pain in left shoulder; G89.29 - Other chronic pain; G89.29 - Other chronic pain (5) Acute renal failure superimposed on stage 4 chronic kidney disease Code(s): N17.9 - ACUTE KIDNEY FAILURE, UNSPECIFIED; N18.4 - CHRONIC KIDNEY DISEASE, STAGE 4 (SEVERE) Status: Acute Comment: Improved but over- correction with volume overload, continue Lasix 40mg IV q12h, appreciate Nephrology assistance (6) Hypertension Code(s): I10 - ESSENTIAL (PRIMARY) HYPERTENSION Status: Chronic Qualifiers: Hypertension type: essential hypertension Qualified Code(s): I10 - Essential (primary) hypertension Comment: Stable, continue current BP regimen (7) Hypothyroidism Code(s): E03.9 - HYPOTHYROIDISM, UNSPECIFIED Status: Chronic Qualifiers: Hypothyroidism type: postoperative Qualified Code(s): E89.0 - Postprocedural hypothyroidism (8) Hypoadrenocorticism Code(s): E27.40 - UNSPECIFIED ADRENOCORTICAL INSUFFICIENCY Status: Acute - Plan deescalate cortisol replacement to po -: with adrenal insuff. corrected and creat reduced, will change lasix to iv, -: cont to monitor renal fcn * .
--- NOTE | 2017-07-21 08:33 | PRG ---
DATE OF SERVICE: 07/21/2017 SUBJECTIVE: An 86-year-old gentleman being seen for acute kidney injury. The patient denies any cedric sea, vomiting, or chest pain. PHYSICAL EXAMINATION: GENERAL: Patient is awake, alert. VITAL SIGNS: Afebrile, pulse 82, breathing 16, blood pressure 160/61. OBJECTIVE: See above. Awake, alert, in no acute distress. GENERAL APPEARANCE AND MENTAL STATUS: Fair. HEAD/NECK: Normocephalic. Atraumatic. EYES: EOMI. No deformity. EARS: Clear. No ulcers. NOSE: Intact. No lesions. MOUTH: Clear. No discharge. THROAT: Clear. No exudate. LUNGS: Clear. No crackles. CARDIAC: S1, S2. No rub. ABDOMEN: Benign. BS+. GENITALIA/RECTUM: Shabazz absent. BACK/EXTREMITIES: Edema 0+ Ulcer- NEUROLOGICAL: Alert and motor intact. SKIN: Rash- Bruise- LYMPHATICS: Edema- Ulcer- LABORATORY: Hemoglobin 14, creatinine 3.0. ASSESSMENT AND RECOMMENDATIONS: 1. Acute kidney injury, chronic kidney disease stage 4, stable. 2. Hyponatremia, stable. 3. Medication based on glomerular filtration rate are appropriate. No indication for dialysis.
[2017-07-21] MEDS: Hydrocortisone 10 mg Tablet PO SCH ×2 (09:56→20:21)
[2017-07-21] MEDS: Gabapentin 100 MG CAP PO SCH ×2 (09:58→20:21)
[2017-07-21] MEDS: busPIRone HCl 10 MG TAB PO SCH ×3 (09:58→20:21)
[2017-07-21] MEDS: Folic Acid 1 MG TAB PO SCH (09:58)
[2017-07-21] MEDS: Polyethylene Glycol 3350 17 GM Packet PO SCH (09:58)
[2017-07-21] MEDS: Acetaminophen 325 MG TAB PO SCH ×3 (09:58→20:21)
[2017-07-21] MEDS: Carvedilol 3.125 MG TAB PO SCH ×2 (09:58→20:21)
[2017-07-21] MEDS: Cyanocobalamin (Vitamin B-12) 1,000 MCG TAB PO SCH (09:59)
[2017-07-21] MEDS: Famotidine 20 MG TAB PO SCH (09:59)
[2017-07-21 10:43] VITALS: BMI 33.9
[2017-07-21] MEDS: Furosemide 40 MG/4 ML VIAL SLOW IVP SCH (15:16)
[2017-07-21] MEDS: Lidocaine Patch Removal 1 EACH TOP SCH (17:19)
[2017-07-21 22:56] LABS: Hemoglobin 13.8 g/dL (14.0-18.0); Platelet Count 221 thou/uL (130-400)
[2017-07-22 05:19] LABS: Prothrombin Time 22.9 SEC (12.0-14.7)
[2017-07-22] MEDS: Lidocaine 5% Patch TD SCH (05:19)
[2017-07-22] MEDS: Furosemide 40 MG/4 ML VIAL SLOW IVP SCH ×2 (05:19→14:07)
[2017-07-22] MEDS: Levothyroxine Sodium 88 MCG TAB PO SCH (05:19)
[2017-07-22 05:28] LABS: Anion Gap 14 mmol/L (10-20); BUN (Urea Nitrogen) 47 mg/dL (8.4-25.7); Calc. Creatinine Clearance 25 mL/min (70-130); Calcium 9.2 mg/dL (7.8-10.44); Carbon Dioxide 30 mmol/L (23-31); Chloride 92 mmol/L (98-107); Estimated GFR-MDRD 20; Glucose 114 mg/dL (83-110); Potassium 3.7 mmol/L (3.5-5.1); Sodium 132 mmol/L (136-145)
[2017-07-22] MEDS: Acetaminophen 325 MG TAB PO SCH ×3 (08:34→21:07)
[2017-07-22] MEDS: busPIRone HCl 10 MG TAB PO SCH ×3 (08:34→21:07)
[2017-07-22] MEDS: Cyanocobalamin (Vitamin B-12) 1,000 MCG TAB PO SCH (08:34)
[2017-07-22] MEDS: Gabapentin 100 MG CAP PO SCH ×2 (08:35→21:08)
[2017-07-22] MEDS: Folic Acid 1 MG TAB PO SCH (08:35)
[2017-07-22] MEDS: Carvedilol 3.125 MG TAB PO SCH ×2 (08:35→21:07)
[2017-07-22] MEDS: Famotidine 20 MG TAB PO SCH (08:36)
[2017-07-22] MEDS: Polyethylene Glycol 3350 17 GM Packet PO SCH (08:36)
--- NOTE | 2017-07-22 09:47 | PDOC.PN ---
- Subjective Encounter Start Date: 07/22/17 Encounter Start Time: 09:45 Subjective: feels good, hates diet - Objective Resuscitation Status: Resuscitation Status FULL:Full Resuscitation MAR Reviewed: Yes Vital Signs & Weight: Vital Signs (12 hours) Temp Pulse Resp BP BP Pulse Ox 07/22/17 08:00 97.7 F 83 20 118/57 L 97 07/22/17 04:00 98 F 83 22 H 136/58 L 96 07/22/17 00:00 97.8 F 87 20 117/63 95 Weight Admit Weight 212 lb 12.8 oz Weight 214 lb 12.8 oz I&O: 07/21/17 07/22/17 07/23/17 06:59 06:59 06:59 Intake Total 1120 1280 Output Total 1600 1351 Balance -480 -71 Result Diagrams: 07/21/17 22:47 07/22/17 04:52 Phys Exam - Physical Examination Neck: no JVD Respiratory: clear to auscultation bilateral Cardiovascular: RRR, no significant murmur Gastrointestinal: soft, positive bowel sounds Musculoskeletal: edema present Dx/Plan (1) Hyponatremia Code(s): E87.1 - HYPO-OSMOLALITY AND HYPONATREMIA Status: Acute Comment: Suspect acute component due to volume fluctuations, fluid restrict 1.2L/24h, serial monitoring (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 Code(s): I50.40 - UNSP COMBINED SYSTOLIC AND DIASTOLIC (CONGESTIVE) HRT FAIL Status: Chronic Comment: Weight up +10lbs since admit, continue Lasix 40mg IV q12h, EF 40-45%, likely Cardiorenal syndrome (3) General weakness Code(s): R53.1 - WEAKNESS Status: Chronic (4) Left shoulder pain Code(s): M25.512 - PAIN IN LEFT SHOULDER Status: Chronic Qualifiers: Chronicity: chronic Qualified Code(s): M25.512 - Pain in left shoulder; G89.29 - Other chronic pain; G89.29 - Other chronic pain (5) Acute renal failure superimposed on stage 4 chronic kidney disease Code(s): N17.9 - ACUTE KIDNEY FAILURE, UNSPECIFIED; N18.4 - CHRONIC KIDNEY DISEASE, STAGE 4 (SEVERE) Status: Acute Comment: Improved but over- correction with volume overload, continue Lasix 40mg IV q12h, appreciate Nephrology assistance (6) Hypertension Code(s): I10 - ESSENTIAL (PRIMARY) HYPERTENSION Status: Chronic Qualifiers: Hypertension type: essential hypertension Qualified Code(s): I10 - Essential (primary) hypertension Comment: Stable, continue current BP regimen (7) Hypothyroidism Code(s): E03.9 - HYPOTHYROIDISM, UNSPECIFIED Status: Chronic Qualifiers: Hypothyroidism type: postoperative Qualified Code(s): E89.0 - Postprocedural hypothyroidism (8) Hypoadrenocorticism Code(s): E27.40 - UNSPECIFIED ADRENOCORTICAL INSUFFICIENCY Status: Acute - Plan cont po steroids -: cont iv lasix -: cont coreg, thyroid, etc * .
[2017-07-22] MEDS: Hydrocortisone 10 mg Tablet PO SCH ×2 (09:51→21:08)
--- NOTE | 2017-07-22 10:06 | PRG ---
DATE OF SERVICE: 07/22/2017 SUBJECTIVE: This is 86-year-old gentleman being seen for acute kidney injury. The patient denies an y nausea, vomiting, or chest pain. PHYSICAL EXAMINATION: GENERAL: Patient is awake, alert. VITAL SIGNS: Afebrile, pulse 83, breathing 16, blood pressure 118/57. HEAD/NECK: Normocephalic. Atraumatic. EYES: EOMI. No deformity. EARS: Clear. No ulcers. NOSE: Intact. No lesions. MOUTH: Clear. No discharge. THROAT: Clear. No exudate. LUNGS: Clear. No crackles. CARDIAC: S1, S2. No rub. ABDOMEN: Benign. BS+. GENITALIA/RECTUM: Shabazz absent. BACK/EXTREMITIES: Edema 0+ Ulcer- NEUROLOGICAL: Alert and motor intact. SKIN: Rash- Bruise- LYMPHATICS: Edema- Ulcer- LABORATORY DATA: Show creatinine 2.9. ASSESSMENT AND RECOMMENDATIONS: 1. Acute kidney injury, chronic kidney disease, improved. 2. Hypertension, stable. 3. Anemia, stable. 4. Medications based on glomerular filtration rate are appropriate.
--- NOTE | 2017-07-22 13:40 | PDOC.CTH ---
<Mandie Prajapati - Last Filed: 07/22/17 13:40> Cardiology Progress Note - Subjective The pt seen and examined. No overnight events. No cardiac complaints. His legs are swelling. No DAVE at this moment. Per pt, his BLE edema is better in AM. - Objective Vital Signs Temp Pulse Resp BP BP Pulse Ox 07/22/17 08:00 97.7 F 83 20 118/57 L 97 07/22/17 04:00 98 F 83 22 H 136/58 L 96 Admit Weight 212 lb 12.8 oz Weight 214 lb 12.8 oz 07/21/17 07/22/17 07/23/17 06:59 06:59 06:59 Intake Total 1120 1280 Output Total 1600 1351 Balance -480 -71 - Physical Examination General/Neuro: alert & oriented x3 Neck: no JVD present Lungs: CTA Heart: RRR Abdomen: soft Extremities: other: (4+ pitting BLE edema) - Labs Result Diagrams: 07/21/17 22:47 07/22/17 04:52 Troponin/CKMB CK-MB (CK-2) 3.7 ng/mL (0-6.6) 07/13/17 18:02 Troponin I 0.093 ng/mL (< 0.028) H 07/14/17 08:50 - Assessment/Plan 1. Chronic combined HF - has gained > 10lbs during this admission; on Lasix 40mg IV BID; 2. Dilated CMY with hx of AICD - stable; 3. 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 BLE edema Lt> Rt with Hx of DVTs - Instructed to elevate his BLE; on Coumadin : INR today was 2.0. 5. HTN - stable 6. Hypothyroidism - managed by PCP 7. Pain in Lt shoulder and back - improved; Xray on 07/15/17 showed no evidence abnormalities in his Lt shoulder and mod degenerative changes of the cervical spine; 8. 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 Dizziness - stable MAR reviewed * Echo on 07/14/17 showed EF 40-45%, mod LA dilation, mild-mod MR, mild AR, mild TR. Review of Systems - Review of Systems Constitutional: reports: no symptoms reported EENTM: reports: no symptoms reported Respiratory: reports: no symptoms reported Cardiac (ROS): reports: no symptoms reported ABD/GI: reports: no symptoms reported : reports: no symptoms reported Musculoskeletal: reports: no symptoms reported <Dennis Rodríguez - Last Filed: 07/22/17 17:37> Cardiology Progress Note - Objective Vital Signs Temp Pulse Resp BP Pulse Ox 07/22/17 08:00 97.7 F 83 20 118/57 L 97 Admit Weight 212 lb 12.8 oz Weight 214 lb 12.8 oz 07/21/17 07/22/17 07/23/17 06:59 06:59 06:59 Intake Total 1120 1280 900 Output Total 1600 1351 1400 Balance -480 -71 -500 - Labs Result Diagrams: 07/21/17 22:47 07/22/17 04:52 Troponin/CKMB CK-MB (CK-2) 3.7 ng/mL (0-6.6) 07/13/17 18:02 Troponin I 0.093 ng/mL (< 0.028) H 07/14/17 08:50 - Assessment/Plan Pt. seen and eval. by me. I agree with the A/P by the [facility] [employer]. He is looking better from a cardiac standpoint compared to when I saw him last week. Chest clear. RRR. Mild lower extremity edema.
[2017-07-22] MEDS: Lidocaine Patch Removal 1 EACH TOP SCH (17:29)
[2017-07-23 05:45] LABS: INR-International Normal Ratio 1.5; Prothrombin Time 18.4 SEC (12.0-14.7)
[2017-07-23 06:04] LABS: Anion Gap 11 mmol/L (10-20); BUN (Urea Nitrogen) 50 mg/dL (8.4-25.7); Calc. Creatinine Clearance 25 mL/min (70-130); Calcium 9.3 mg/dL (7.8-10.44); Carbon Dioxide 31 mmol/L (23-31); Chloride 96 mmol/L (98-107); Estimated GFR-MDRD 21; Glucose 118 mg/dL (83-110); Potassium 3.9 mmol/L (3.5-5.1); Sodium 134 mmol/L (136-145)
[2017-07-23] MEDS: Furosemide 40 MG/4 ML VIAL SLOW IVP SCH (06:36)
[2017-07-23] MEDS: Lidocaine 5% Patch TD SCH (06:36)
[2017-07-23] MEDS: Levothyroxine Sodium 88 MCG TAB PO SCH (06:36)
[2017-07-23] MEDS: Cyanocobalamin (Vitamin B-12) 1,000 MCG TAB PO SCH (08:42)
[2017-07-23] MEDS: Gabapentin 100 MG CAP PO SCH (08:42)
[2017-07-23] MEDS: Folic Acid 1 MG TAB PO SCH (08:42)
[2017-07-23] MEDS: Famotidine 20 MG TAB PO SCH (08:42)
[2017-07-23] MEDS: Carvedilol 3.125 MG TAB PO SCH (08:43)
[2017-07-23] MEDS: busPIRone HCl 10 MG TAB PO SCH ×2 (08:43→14:05)
[2017-07-23] MEDS: Acetaminophen 325 MG TAB PO SCH ×2 (08:43→14:05)
[2017-07-23] MEDS: Polyethylene Glycol 3350 17 GM Packet PO SCH (08:44)
[2017-07-23] MEDS: Hydrocortisone 10 mg Tablet PO SCH (08:44)
--- NOTE | 2017-07-23 10:22 | PDOC.CTH ---
<Mandie Prajapati - Last Filed: 07/23/17 10:20> Cardiology Progress Note - Subjective The pt seen and examined. No overnight events. No cardiac complaints. He would like to go home today because it [birth year] today. - Objective Vital Signs Temp Pulse Resp BP Pulse Ox 07/23/17 08:00 97.8 F 83 16 112/69 98 Admit Weight 212 lb 12.8 oz Weight 216 lb 7.903 oz 07/22/17 07/23/17 07/24/17 06:59 06:59 06:59 Intake Total 1280 1220 Output Total 1351 2250 Balance -71 -1030 - Physical Examination General/Neuro: alert & oriented x3 Neck: no JVD present Heart: RRR Abdomen: soft Extremities: other: (3-4 pitting edema Lt>Rt) - Labs Result Diagrams: 07/21/17 22:47 07/23/17 05:16 Troponin/CKMB CK-MB (CK-2) 3.7 ng/mL (0-6.6) 07/13/17 18:02 Troponin I 0.093 ng/mL (< 0.028) H 07/14/17 08:50 - Assessment/Plan 1. Chronic combined HF - negative 1000 ml yesterday; change Lasix 40mg from IV to BID; cont. monitor 2. Dilated CMY with hx of AICD - stable; 3. CKD stage 4 - slightly improving; managed by pmo analyst 4. BLE edema Lt> Rt with Hx of DVTs - better than yesterday; Instructed to elevate his BLE; on Coumadin: INR today was 2.0. 5. HTN - stable with current medication 6. Hypothyroidism - managed by PCP 7. Pain in Lt shoulder and back - resolved; Xray on 07/15/17 showed no evidence abnormalities in his Lt shoulder and mod degenerative changes of the cervical spine; 8. 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 Dizziness - stable MAR reviewed * Echo on 07/14/17 showed EF 40-45%, mod LA dilation, mild-mod MR, mild AR, mild TR. * From cardiac standpoint, the pt is stable to d/c home. Review of Systems - Review of Systems Constitutional: reports: no symptoms reported EENTM: reports: no symptoms reported Respiratory: reports: no symptoms reported Cardiac (ROS): reports: no symptoms reported ABD/GI: reports: no symptoms reported : reports: no symptoms reported Musculoskeletal: reports: no symptoms reported <Dennis Rodríguez - Last Filed: 07/23/17 15:26> Cardiology Progress Note - Objective Vital Signs Temp Pulse Resp BP Pulse Ox 07/23/17 12:00 83 20 142/69 H 95 07/23/17 08:00 97.8 F 83 16 112/69 98 Admit Weight 212 lb 12.8 oz Weight 216 lb 7.903 oz 07/22/17 07/23/17 07/24/17 06:59 06:59 06:59 Intake Total 1280 1220 Output Total 1351 2250 Balance -71 -1030 - Labs Result Diagrams: 07/21/17 22:47 07/23/17 05:16 Troponin/CKMB CK-MB (CK-2) 3.7 ng/mL (0-6.6) 07/13/17 18:02 Troponin I 0.093 ng/mL (< 0.028) H 07/14/17 08:50 - Assessment/Plan pt. seen and eval. by me. I agree with the A/P by the [facility].Pt. ready for d/c.
--- NOTE | 2017-07-23 11:03 | PRG ---
DATE OF SERVICE: 07/23/2017 SUBJECTIVE: This is an 87-year-old gentleman being seen for acute kidney injury. The patient denies any nausea, vomiting or chest pain. PHYSICAL EXAMINATION: GENERAL: Patient is awake, alert. VITAL SIGNS: Afebrile, pulse 60, breathing 16, blood pressure 112/69. OBJECTIVE: See above. Awake, alert, in no acute distress. GENERAL APPEARANCE AND MENTAL STATUS: Fair. HEAD/NECK: Normocephalic. Atraumatic. EYES: EOMI. No deformity. EARS: Clear. No ulcers. NOSE: Intact. No lesions. MOUTH: Clear. No discharge. THROAT: Clear. No exudate. LUNGS: Clear. No crackles. CARDIAC: S1, S2. No rub. ABDOMEN: Benign. BS+. GENITALIA/RECTUM: Shabazz absent. BACK/EXTREMITIES: Edema 0+ Ulcer- NEUROLOGICAL: Alert and motor intact. SKIN: Rash- Bruise- LYMPHATICS: Edema- Ulcer- LABORATORY: Hemoglobin 13.8, creatinine is 2.8. ASSESSMENT AND RECOMMENDATIONS: 1. Acute kidney injury, improved. 2. Hypertension, stable. 3. Anemia, stable. 4. Hyponatremia, stable. No indication for dialysis at this time.
--- NOTE | 2017-07-23 12:13 | DIS ---
TRANSFER OF CARE NOTE DATE OF ADMISSION: 07/14/2017 DATE OF DISCHARGE: 07/23/2017 DISCHARGE DISPOSITION: Home. FINAL DIAGNOSES: 1. Hypoadrenocorticism with acute adrenal insufficiency. 2. Hypothyroidism. 3. Status post pituitary tumor resection. 4. Hypertension. 5. Chronic kidney disease stage 4 with acute exacerbation. 6. Generalized weakness. 7. Congestive heart failure, systolic and diastolic. 8. Hyponatremia. DISCHARGE MEDICATIONS: Lasix 40 mg twice a day, Cortef 30 mg p.o. b.i.d., BuSpar 10 mg t.i.d., gabap entin 100 mg a day, Coreg 3.125 mg twice a day, levothyroxine 88 mcg a day, [place] 5/325 one or two ev len 6 hours for pain, Coumadin 5 mg daily alternating with 4 mg daily, meclizine 25 mg t.i.d., raniti dine 150 mg b.i.d. ALLERGIES: NITROFURANTOIN, SULFA, IODINE, CIPROFLOXACIN. HOSPITAL COURSE: The patient [facility] Emergency Department, initial complaint was weakness. His initial creatinine in the emergency dep artment was 5.94, BUN was 88, potassium 2.5, sodium 129. He received IV fluids. Potassium came up t o 3.7. His creatinine came down slowly 5.22, 4.67, 4.11. I saw the patient first on 07/19/2017. At that time the patient had a respiratory rate of 22 with 96% O2 sat on 2 liters of nasal cannula. So dium was 124, creatinine 3.33, BUN 41. The patient was markedly edematous. T4 was 0.91. The T3 was borderline low at 1.69. His cortisol was less than 1. Studies that had been done previously; he pompa d a CT of the abdomen and pelvis which revealed cholelithiasis. Echocardiogram: EF 40-45%, consiste nt with previous. He was seen in consultation by Dr. Ismael Mckeon, Dr. Tee Rodríguez. At this point, I started the patient on stress level doses of IV Solu-Cortef. The patient's weakness improved rapi dly. He was started on IV Lasix. He has dropped from 226 to 216 pounds. His leg edema has gone fro m 4+ to 2+. Chest is clear. I have transitioned him to 30 mg of hydrocortisone twice a day, 40 mg o f Lasix twice a day. He is now 98% on room air. His chest is clear to exam. It is clear. His ches t x-ray on admission revealed no acute failure. The patient is currently doing very well and wishing to go home. He had no procedures done while in the hospital. He is being discharged on a different diuretic than on admission. He is also on a higher dose of hydrocortisone than I have seen in the p ast. His Coumadin was transiently held because of an elevated pro time, but had been reinstituted. On followup he will need a repeat pro time, INR repeat basic metabolic profile. He will of course re quire adjustments of his diuretic and of his hydrocortisone as he is still on stress levels. This wi ll need to be modified by his PCP. He has been asked to see Dr. Duncan, his primary care provider i n 1 week. CODE STATUS: Full. PENDING AT THE TIME OF DISCHARGE: Nothing. Prescriptions have been written. Discharge has been discussed with the patient. He is on a low salt diet. He is on 1200 mL fluid res triction at this time.
[2017-07-23] MEDS ORDERED: Furosemide 40 MG TAB PO SCH (14:00)
[2017-07-23 16:49] VITALS: BP 136/78; TEMP 97.9
== END 2017-07-23 16:50 | disposition home or self-care (01) | DRG 682 ==
LOC: ERS 17:34 → 2NO 19:00 → OBSVTOIN 07-14 00:56 → T4-B 07-21 07:29
PROVIDERS: ADMIT Internal Medicine Infectious Disease; ATTEND Internal Medicine Infectious Disease
DX: N17.9 Acute kidney failure, unspecified (principal); I50.43 Acute on chronic combined systolic (congestive) and diastolic (congestive) heart failure; E27.40 Unspecified adrenocortical insufficiency; I42.0 Dilated cardiomyopathy; E87.1 Hypo-osmolality and hyponatremia; I13.0 Hypertensive heart and chronic kidney disease with heart failure and stage 1 through stage 4 chronic kidney disease, or unspecified chronic kidney disease; N18.4 Chronic kidney disease, stage 4 (severe); E78.5 Hyperlipidemia, unspecified; E03.9 Hypothyroidism, unspecified; E87.6 Hypokalemia; E66.9 Obesity, unspecified; Z68.33 Body mass index [BMI] 33.0-33.9, adult; Z85.46 Personal history of malignant neoplasm of prostate; Z86.711 Personal history of pulmonary embolism; Z95.810 Presence of automatic (implantable) cardiac defibrillator; Z88.1 Allergy status to other antibiotic agents; Z88.2 Allergy status to sulfonamides; Z88.8 Allergy status to other drugs, medicaments and biological substances; Z79.01 Long term (current) use of anticoagulants
CPT/HCPCS: 36415; 71045; 71250; 72040; 74177; 76770; 80048; 80053; 81003; 82436; 82533; 82550; 82553; 83735; 84100; 84133; 84300; 84439; 84443; 84481; 84484; 85014; 85018; 85025; 85049; 85610; 85730; 87040; 93005; 93010; 93306; 96360; 96361; A4216; G8978-GP-CL; G8979-GP-CJ; G8987-GO-CL; G8988-GO-CJ; G8996-GN-CJ; G8997-GN-CI; J1644; J1720; J1940; J2405

== ENCOUNTER 2017-08-24 17:58 | Emergency (ER) | payer MEDICARE, OTHER ==
[2017-08-24] MEDS ORDERED: Adacel (T-DAP) 0.5 ML VIAL ONE (18:17)
[2017-08-24] MEDS ORDERED: Acetaminophen/Codeine 30-300mg Tablet ONE (19:10)
--- NOTE | 2017-08-24 19:43 | RAD ---
AP VIEW OF THE PELVIS: 08/24/17 INDICATION: History of fall with pelvic pain. COMPARISON: None. FINDINGS: There is extensive postsurgical change involving the pelvis likely related to prior prostatectomy. Th ere is mild degenerative change of the symphysis pubis. No acute fracture or subluxation is evident. IMPRESSION: No acute osseous abnormality. POS: LEONELA
== END 2017-08-24 19:19 | disposition home or self-care (01) ==
LOC: SCSER 17:58
DX: S76.312A Strain of muscle, fascia and tendon of the posterior muscle group at thigh level, left thigh, initial encounter (principal); S50.311A Abrasion of right elbow, initial encounter; N18.3 Chronic kidney disease, stage 3 (moderate); I48.91 Unspecified atrial fibrillation; Z87.891 Personal history of nicotine dependence; W19.XXXA Unspecified fall, initial encounter
CPT/HCPCS: 72170; 90471; 90715

== ENCOUNTER 2017-09-14 21:35 | Observation (INO) | payer MEDICARE, OTHER ==
[2017-09-14 22:27] LABS: #Basophils 0.1 thou/uL (0.0-0.2); #Eosinphils 0.2 thou/uL (0.0-0.7); #Lymphocytes 1.4 thou/uL (1.20-3.40); #Monocytes 0.8 thou/uL (0.11-0.59); #Neutrophils 7.4 thou/uL (1.40-6.50); %Basophils 0.6 % (0.0-1.0); %Eosinophils 1.6 % (0.0-10.0); %Monocytes 8.1 % (0.0-10.0); %Neutrophils 75.8 % (42.0-75.0); Hemoglobin 12.1 g/dL (14.0-18.0); Mean Corpuscular HGB CONC 35.1 g/dL (32.0-36.0); Mean Corpuscular Hemoglobin 32.6 pg (27.0-31.0); Mean Corpuscular Volume 92.7 fl (80.0-94.0); Mean Platelet Volume 8.3 fL (7.4-10.4); Platelet Count 152 thou/uL (130-400); RBC Distribution Width 13.2 % (11.5-14.5); Red Blood Cell (RBC) Count 3.72 mill/uL (4.70-6.10); White Blood Cell (WBC) Count 9.7 thou/uL (4.8-10.8)
[2017-09-14 22:51] LABS: ALT (SGPT) 15 U/L (8-55); AST (SGOT) 17 U/L (5-34); Albumin 3.8 g/dL (3.4-4.8); Alkaline Phosphatase 104 U/L (40-150); Anion Gap 19 mmol/L (10-20); BUN (Urea Nitrogen) 94 mg/dL (8.4-25.7); Bilirubin, Total 0.6 mg/dL (0.2-1.2); CK (CPK) 68 U/L (30-200); Calc. Creatinine Clearance 0 mL/min (70-130); Calcium 9.2 mg/dL (7.8-10.44); Carbon Dioxide 27 mmol/L (23-31); Chloride 90 mmol/L (98-107); Estimated GFR-MDRD 18; Globulin 2.9 g/dL (2.4-3.5); Glucose 137 mg/dL (83-110); Potassium 3.2 mmol/L (3.5-5.1); Protein, Total 6.7 g/dL (5.8-8.1); Sodium 133 mmol/L (136-145)
[2017-09-14 22:54] LABS: CKMB 4.8 ng/mL (0-6.6); Troponin I 0.064 ng/mL (< 0.028)
[2017-09-14 23:59] LABS: INR-International Normal Ratio 1.7; PTT 33.1 SEC (22.9-36.1); Prothrombin Time 20.3 SEC (12.0-14.7)
[2017-09-15] MEDS ORDERED: HYDROcodone/Acetaminophen 10/325 mg Tablet ONE (00:22)
[2017-09-15 02:24] VITALS: BMI 32.1
[2017-09-15 02:24] LABS: Troponin I 0.075 ng/mL (< 0.028)
[2017-09-15 04:56] LABS: Troponin I 0.082 ng/mL (< 0.028)
--- NOTE | 2017-09-15 09:29 | CT ---
PRELIMINARY REPORT/[facility]/EMERGENTY AFTER-HOURS PROCEDURE CT Head Without Intravenous Contrast CLINICAL HISTORY: 87 years old, male; Signs and symptoms; Syncope and collapse; Patient HX: Er 21; M87 with pacemaker a nd defibrillator presents to ed C/O syncope and fall that occurred today. Pt reports going to the [employer] to put up dishes from supper and passing out. Pt reports injuring head during syncopal episode. Pt remembers waking up on the floor of the kitchen. Pt reports chronic ble edema. Pt is currently on war farin. TECHNIQUE: Axial computed tomography images of the head/brain without intravenous contrast. COMPARISON: No relevant prior studies available. FINDINGS: Brain: Mild volume loss No hemorrhage. No significant white matter disease. No edema. Ventricles: Unremarkable. No ventriculomegaly. Bones/joints: Unremarkable. No acute fracture. Soft tissues: Unremarkable. Sinuses: Fat attenuation with calcifications in the inferior sella turcica/midline sphenoid sinus. No acute sinusitis. Mastoid air cells: Unremarkable as visualized. No mastoid effusion. IMPRESSION: No intracranial hemorrhage. Presumed chronic changes in the inferior sella turcica/midline sphenoid sinus as described. Comparison with prior images would be helpful Thank you for allowing us to participate in the care of your patient. Dictated and Authenticated by: Rangel Aragon MD 09/15/2017 1:49 AM Central Time ([place] & [place]) EMERGENT AFTER HOURS NONCONTRAST CT HEAD: Date: 09-15-17 History: Trauma. Fall after syncopal episode. Head injury. Comparison: 02-16-17 IMPRESSION: 1. No acute intracranial abnormality is demonstrated. 2. Cerebral and cerebellar volume loss. 3. Stable appearance of the suprasellar region and sella turcica which may be post-operative in origi n. Similar appearance was also seen on a prior study in 2008. 4. Findings are in agreement with preliminary report by ADAM.PREL POS: JANNET
[2017-09-15] MEDS ORDERED: Ondansetron ODT 4 MG TAB PO PRN (09:31)
[2017-09-15] MEDS ORDERED: Acetaminophen 500 MG TAB PO PRN (09:31)
[2017-09-15] MEDS ORDERED: cloNIDine 0.1 MG TAB PO PRN (09:31)
[2017-09-15] MEDS ORDERED: hydrALAZINE 20 MG/ML VIAL SLOW IVP PRN (09:31)
[2017-09-15] MEDS ORDERED: Ondansetron HCl/PF 4 MG/2 ML Vial IVP PRN (09:31)
[2017-09-15] MEDS: Sodium Chloride 0.9% 1,000 ML IV SCH ×2 (11:04→19:32)
[2017-09-15] MEDS: HYDROcodone/Acetaminophen 5/325 mg Tablet PO PRN ×2 (11:09→19:32)
--- NOTE | 2017-09-15 13:38 | HP ---
DATE OF ADMISSION: 09/15/2017 PRIMARY CARE PHYSICIAN: Dr. Marcio Duncan. CHIEF COMPLAINT: Passing out. HISTORY OF PRESENT ILLNESS: This is an 87-year-old male who presented to [facility] complaining of passing out while working in his kitchen at home. The patient state s he was getting up from his kitchen table to put dishes in the sink when he felt like he was going t o pass out. The patient states he was using his rolling walker mobilizing through his kitchen when t he symptoms suddenly began. The patient gripped his walker and the counter to steady himself; richie ventura, passed out, striking his head and left side on the floor in his kitchen. The patient is unsure of the amount of time he was on the floor, but regained consciousness after several minutes and stood b ack up. The patient states he has had 1-2 episodes similar in the past without specific etiology damian ntified. The patient was notably admitted to [facility] for approximately 9 d ays and on 07/2017 diagnosed with hypoadrenocorticism due to acute on chronic adrenal insufficiency i n the context of pituitary tumor resection. The patient was placed on hydrocortisone 30 mg b.i.d., w hich he states he is currently taking. The patient also states that he was recently placed on gabape ntin for peripheral neuropathy in the last 2 weeks by his primary care provider. The patient denied any other recent changes to his medication regimen, exposure history, travel, fever, chills, diarrhea or vomiting. The patient states he normally ambulates with the use of a rolling walker and is funct ional of most activities of daily living independently. The patient does complain of some headache, left hip pain, and general body aches after falling with syncopal episode. In the emergency room, th e patient underwent general evaluation including CT of the brain showing no acute process. The patie nt was noted with worsening renal function in the context of known chronic kidney disease stage 4 wit h creatinine of 3.34 and estimated GFR of 18. The patient did receive intravenous normal saline x1 l iter in addition of potassium chloride and [place] 10/325 mg x1 dose. The patient was transferred to [facility] observation unit for evaluation. PAST MEDICAL HISTORY: 1. Adrenal insufficiency status post pituitary resection. 2. History of syncope. 3. Hypothyroidism. 4. Hypertension. 5. Chronic kidney disease stage 4. 6. Generalized weakness. 7. Combined systolic/diastolic congestive heart failure with ejection fraction 40%-45%. 8. Chronic hyponatremia. 9. Peripheral neuropathy. 10. History of pulmonary embolus on chronic Coumadin. 11. History of prostate cancer. PAST SURGICAL HISTORY: 1. Status post transsphenoidal pituitary resection. 2. Status post AICD placement. 3. Status post colonoscopy. 4. Status post penile implant. 5. Status post radical prostatectomy. CURRENT MEDICATIONS: 1. BuSpar 10 mg p.o. t.i.d. 2. Carvedilol 3.125 mg p.o. b.i.d. 3. Lasix 40 mg p.o. daily. 4. Gabapentin 100 mg p.o. b.i.d. 5. Hydrocortisone 30 mg p.o. b.i.d. 6. Levothyroxine 88 mcg p.o. daily. 7. Meclizine 25 mg p.o. t.i.d. p.r.n. 8. Metolazone 5 mg on Mondays and Fridays. 9. Nitroglycerin 0.4 mg sublingually p.r.n. chest pain. 10. Omeprazole 20 mg 1 tab p.o. daily. 11. Ranitidine 150 mg p.o. b.i.d. 12. Coumadin 4 mg p.o. daily and 5 mg p.o. Wednesday, Wednesday, and Wednesday only. ALLERGIES: CIPROFLOXACIN, IODINE, MACROBID, SULFA. FAMILY HISTORY: No inheritable diseases per patient report. SOCIAL HISTORY: Patient lives independently. Ambulates with use of a rolling walker. History of fa lls and syncope. No current alcohol, tobacco or illicit drug use. Quit smoking within the last year . REVIEW OF SYSTEMS: The following complete review of systems was negative, unless otherwise mentioned in the HPI or below: Constitutional: Weight loss or gain, ability to conduct usual activities. Skin: Rash, itching. Eyes: Double vision, pain. ENT/Mouth: Nose bleeding, neck stiffness, pain, tenderness. Cardiovascular: Palpitations, dyspnea on exertion, orthopnea. Respiratory: Shortness of breath, wheezing, cough, hemoptysis, fever or night sweats. Gastrointestinal: Poor appetite, abdominal pain, heartburn, nausea, vomiting, constipation, or diarr hea. Genitourinary: Urgency, frequency, dysuria, nocturia. Musculoskeletal: Pain, swelling. Neurologic/Psychiatric: Anxiety, depression. Allergy/Immunologic: Skin rash, bleeding tendency. Otherwise negative except as stated per HPI. PHYSICAL EXAMINATION: VITAL SIGNS: Currently, blood pressure 117/59, pulse 81, respiratory rate 16, temperature 97.4 degre es Fahrenheit, O2 saturation 97% on room air. GENERAL APPEARANCE: This is an 87-year-old male, alert and oriented x3, pleasant, mildly a nxious. HEENT: Pupils are equal, round, and reactive to light and accommodation. Extraocular muscles are in tact. No scleral icterus, no conjunctival injection. Nares patent. OP is clear. Small contusion o n the posterior left occiput. NECK: Supple, no cervical adenopathy, no thyromegaly, no carotid bruits, no JVD appreciated. Cervic al spine with full active and passive range of motion. No meningeal signs appreciated. CHEST: Lungs are clear to auscultation bilaterally. CARDIOVASCULAR: S1 and S2 with distant heart sounds. No murmur, rub or gallop appreciated. ABDOMEN: Rounded, soft, nontender, and nondistended. Bowel sounds are positive in all four quadrant s. There is no hepatosplenomegaly, no abdominal bruits, no rebound or guarding appreciated. EXTREMITIES: Left greater than right asymmetric edema. Pulses diminished, but palpable distally at the dorsalis pedis, posterior tibial, and popliteal arteries bilaterally. Capillary refill less than 2 seconds. NEUROLOGIC: Cranial nerves II-XII are grossly intact. No focal or lateralizing signs appreciated. PSYCHIATRIC: Alert and oriented x3. PERTINENT LABORATORY DATA AND IMAGING DATA: Sodium 133, potassium 3.2, chloride 90, CO2 of 27, BUN 9 4, creatinine 3.34. Estimated GFR of 18, glucose 137, calcium 9.2. Troponin I ranged between 0.064- 0.082. Albumin 3.8. CBC showed white blood cell count 9.7, hemoglobin 12, hematocrit 35, platelet c ount 152 with 76% neutrophils. PT 20.3, INR 1.7, and PTT 33.1. CT of the brain without contrast sparkle ed 09/14/2017 showed no acute intracranial process. Chronic changes noted in the inferior sella turc ica and midline sphenoid sinus. EKG dated 09/14/2017 by my interpretation shows AV dual paced rhythm with heart rate in the 80s. ASSESSMENT AND PLAN: 1. Syncope. The patient will be observed on the telemetry unit. Exact etiology unclear and questio nable relationship to dehydration. Check orthostatic vital signs. Interrogation of [employer] AICD s hows normal functioning device. We will continue intravenous fluids with normal saline at 50 mL per hour. Continue supportive management. Check carotid Doppler study to rule out focal stenosis. 2. Acute kidney injury on chronic kidney disease stage 4. We will continue intravenous normal salin e at 50 mL per hour. Avoid nephrotoxic agents and contrast media. Repeat creatinine in the a.m. 3. Hyponatremia, chronic. Continue intravenous normal saline and monitor serially. 4. Elevated troponin I - chronic in nature. No evidence to suggest acute coronary syndrome. Review of the electronic medical record shows elevated troponins dating back to 2013. 5. Hypothyroidism. Resume levothyroxine 88 mcg daily. 6. Chronic anticoagulation with Coumadin. Repeat daily PT/INR with goal INR of 2-3. No current jackie dence to suggest acute blood loss. 7. Prophylaxis. Sequential compression devices while in bed. PT evaluation for functional assessme nt. Fall risk precautions. 8. Code status is FULL. Surrogate medical decision maker is patient's nephew, Brennan Montanez.
--- NOTE | 2017-09-15 13:43 | ULT ---
BILATERAL CAROTID DUPLEX ULTRASOUND INCLUDING COLOR AND SPECTRAL DOPPLER IMAGING: DATE: 09/15/17 HISTORY: 87-year-old female with history of syncope. FINDINGS: There is visual plaque noted in both distal CCAs and proximal ICAs. PSV Right ICA: 66 cm/sec EDV: 12 cm/sec ICA/CCA Ratio: 1.3 PSV Left ICA: 71 cm/sec EDV: 13 cm/sec ICA/CCA Ratio: 1.0 Vertebral flow is antegrade. 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 No hemodynamically s ignificant stenosis. POS: C
[2017-09-15] MEDS: busPIRone HCl 10 MG TAB PO SCH ×2 (15:36→20:55)
[2017-09-15] MEDS ORDERED: Warfarin Sodium 2 MG TAB PO SCH ×2 (17:00)
[2017-09-15] MEDS ORDERED: Warfarin Sodium 5 MG TAB PO SCH (17:00)
[2017-09-15] MEDS: Gabapentin 100 MG CAP PO SCH (20:54)
[2017-09-15] MEDS: Hydrocortisone 10 mg Tablet PO SCH (20:55)
[2017-09-15] MEDS: Carvedilol 3.125 MG TAB PO SCH (20:55)
[2017-09-15] MEDS: Famotidine 20 MG TAB PO SCH (20:55)
[2017-09-15] MEDS ORDERED: Famotidine 20 MG TAB PO SCH (21:00)
[2017-09-15] MEDS ORDERED: Melatonin 3 MG TAB PO PRN (23:09)
[2017-09-16] MEDS: HYDROcodone/Acetaminophen 5/325 mg Tablet PO PRN ×3 (00:05→16:31)
[2017-09-16 05:21] LABS: Anion Gap 13 mmol/L (10-20); BUN (Urea Nitrogen) 82 mg/dL (8.4-25.7); Calc. Creatinine Clearance 26 mL/min (70-130); Calcium 8.7 mg/dL (7.8-10.44); Carbon Dioxide 32 mmol/L (23-31); Chloride 93 mmol/L (98-107); Estimated GFR-MDRD 23; Glucose 136 mg/dL (83-110); Magnesium 2.5 mg/dL (1.6-2.6); Potassium 3.3 mmol/L (3.5-5.1); Sodium 135 mmol/L (136-145)
[2017-09-16 05:25] LABS: Band 7 % (5-11); Hemoglobin 11.1 g/dL (14.0-18.0); Lymphocytes 16 % (21-51); MDiff Complete? YES; Mean Corpuscular HGB CONC 34.4 g/dL (32.0-36.0); Mean Corpuscular Hemoglobin 32.3 pg (27.0-31.0); Mean Platelet Volume 8.2 fL (7.4-10.4); Monocytes 5 % (0-10); Neutrophil 72 % (42-75); Platelet Count 130 thou/uL (130-400); RBC Distribution Width 13.4 % (11.5-14.5); Red Blood Cell (RBC) Count 3.44 mill/uL (4.70-6.10); White Blood Cell (WBC) Count 6.5 thou/uL (4.8-10.8)
[2017-09-16] MEDS ORDERED: Levothyroxine Sodium 88 MCG TAB PO SCH (06:00)
[2017-09-16 08:03] LABS: INR-International Normal Ratio 2.1; Prothrombin Time 23.9 SEC (12.0-14.7)
[2017-09-16] MEDS: busPIRone HCl 10 MG TAB PO SCH ×2 (08:55→16:28)
[2017-09-16] MEDS: Famotidine 20 MG TAB PO SCH (08:55)
[2017-09-16] MEDS: Hydrocortisone 10 mg Tablet PO SCH (08:55)
[2017-09-16] MEDS: Carvedilol 3.125 MG TAB PO SCH (08:55)
[2017-09-16] MEDS: Gabapentin 100 MG CAP PO SCH (08:55)
[2017-09-16] MEDS ORDERED: Levothyroxine Sodium 100 MCG TAB PO SCH (09:00)
[2017-09-16 12:19] VITALS: TEMP 98.1
[2017-09-16] MEDS ORDERED: Sodium Chloride 0.9% 1,000 ML IV SCH (12:35)
--- NOTE | 2017-09-16 12:54 | PDOC.PN ---
- Subjective Encounter Start Date: 09/16/17 Encounter Start Time: 12:40 Subjective: f/u for syncopal episode likely multifactorial. Overall feels better on IVF -: c/o LLE edema for 2 years appears to be worse. - Objective Resuscitation Status: Resuscitation Status FULL:Full Resuscitation MAR Reviewed: Yes Vital Signs & Weight: Vital Signs (12 hours) Temp Pulse Pulse Resp BP BP BP 09/16/17 11:21 98.1 F 79 16 121/56 L 09/16/17 08:15 80 115/57 L 09/16/17 07:34 97.3 F L 86 18 142/68 H 09/16/17 07:20 97.3 F L 86 18 09/16/17 04:05 82 18 127/62 Pulse Ox Pulse Ox 09/16/17 11:21 95 09/16/17 08:15 95 09/16/17 07:34 95 09/16/17 07:20 09/16/17 04:05 93 L Weight Weight 211 lb 12.8 oz I&O: 09/15/17 09/16/17 09/17/17 06:59 06:59 06:59 Intake Total 250 2864 Output Total 925 1075 200 Balance -675 1789 -200 Result Diagrams: 09/16/17 04:40 09/16/17 04:40 Additional Labs: Microbiology 07/13/17 18:01 Venous blood - Right Arm Blood Culture - Preliminary NO GROWTH AT 48 HOURS 07/13/17 18:01 Venous blood - Left Arm Blood Culture - Preliminary NO GROWTH AT 48 HOURS Laboratory Tests 07/13/17 07/13/17 07/13/17 17:55 18:02 18:02 PT INR Sodium 129 L Potassium 2.8 L* Creatinine 5.94 H Troponin I 0.110 H TSH 3rd Generation 0.2945 L Cortisol 07/13/17 07/14/17 07/14/17 20:50 00:18 08:50 PT INR Sodium 132 L Potassium Creatinine 5.22 H Troponin I 0.128 H 0.099 H TSH 3rd Generation Cortisol 07/15/17 07/16/17 07/16/17 05:07 04:55 04:55 PT 22.8 H INR 1.9 Sodium 132 L 131 L Potassium Creatinine 4.67 H 4.11 H Troponin I TSH 3rd Generation Cortisol 03/02/2407/18/17 09/14/17 04:26 05:22 22:15 PT 28.4 H 32.0 H INR 2.5 2.9 Sodium Potassium 3.2 L Creatinine 3.34 H Troponin I TSH 3rd Generation Cortisol 09/14/17 09/15/17 09/15/17 22:15 01:53 04:24 PT INR Sodium Potassium Creatinine Troponin I 0.064 H 0.075 H 0.082 H TSH 3rd Generation Cortisol 09/16/17 09/16/17 09/16/17 04:40 04:40 07:24 PT 23.9 H INR 2.1 Sodium Potassium Creatinine Troponin I TSH 3rd Generation 0.8645 Cortisol 16.30 Radiology Reviewed by me: Yes (Carotid sono - + plaques without focal stenosis) EKG Reviewed by me: Yes (Tele - V-pacing) Phys Exam - Physical Examination Constitutional: NAD HEENT: PERRLA, moist MMs, sclera anicteric, oral pharynx no lesions Neck: no nodes, no JVD, supple Respiratory: no wheezing, no rales, no rhonchi, clear to auscultation bilateral S1, S2 Cardiovascular: RRR, no significant murmur, no rub, gallop Gastrointestinal: soft, non-tender, no distention, positive bowel sounds LLE edema to knee > RLE Musculoskeletal: pulses present Neurological: non-focal Psychiatric: normal affect, A&O x 3 Skin: no rash, normal turgor, cap refill <2 seconds Dx/Plan (1) Syncope Code(s): R55 - SYNCOPE AND COLLAPSE Status: Acute Comment: Likely multifactorial including dehydration, continue supportive mgmt (2) Leg edema, left Code(s): R60.0 - LOCALIZED EDEMA Status: Acute Comment: Check arterial and venous doppler sono to r/o VTE (3) Acute renal failure superimposed on stage 4 chronic kidney disease Code(s): N17.9 - ACUTE KIDNEY FAILURE, UNSPECIFIED; N18.4 - CHRONIC KIDNEY DISEASE, STAGE 4 (SEVERE) Status: Acute Comment: Improved with IVF's, decrease IVF 30ml/h, avoid nephrotoxic meds and contrast (4) Hyponatremia Code(s): E87.1 - HYPO-OSMOLALITY AND HYPONATREMIA Status: Acute Comment: Chronic hyponatremia (5) Demand ischemia of myocardium Code(s): I24.8 - OTHER FORMS OF ACUTE ISCHEMIC HEART DISEASE Status: Chronic Comment: No evidence of ACS (6) Dehydration Code(s): E86.0 - DEHYDRATION Status: Acute Comment: Improved, continue IVF' s another 24h then d/c - Plan PT/OT, social insurance adviser, out of bed/ambulate Stable overall -: Continue IVF's 30ml/h -: Check LLE sono for arterial/venous r/o VTE -: PT evaluation for functional assessment -: Rehab referral for deconditioning * .
--- NOTE | 2017-09-16 15:42 | ULT ---
LEFT LOWER EXTREMITY VENOUS ULTRASOUND WITH DOPPLER 09/16/17 COMPARISON: 02/29/16. HISTORY: Chronic left leg edema. COMPARISON: None. TECHNIQUE: Munoz scale, color flow, doppler imaging with spectral waveform analysis performed in the left lower e xtremity venous system. FINDINGS: There is compressibility, presence of flow and augmentation in the common femoral vein, femoral vein and popliteal vein. There is flow in the greater saphenous vein, profunda vein and posterior tibial v ein. IMPRESSION: No evidence of thrombus in the left lower extremity deep venous system. LEFT LOWER EXTREMITY ARTERIAL ULTRASOUND AND DOPPLER: 09/16/17 HISTORY: Chronic left lower extremity edema. TECHNIQUE: Munoz scale, color flow, doppler imaging with spectral waveform analysis performed in the left lower e xtremity arterial system. FINDINGS: There is biphasic flow in the common femoral artery, proximal mid and distal superficial femoral juancho ry, profunda femoral artery, and popliteal artery. There is monophasic flow in the anterior tibial ar sadaf, posterior tibial artery and dorsalis pedis artery. Common femoral artery 80.8 cm/s. Profunda femoral artery 54.9 cm/s. Proximal superficial femoral artery 54.1 cm/s. Mid superficial femoral artery 114.5 cm/s. Distal superficial femoral artery 210.8 cm/s. Popliteal artery 74.6 cm/s. Anterior tibial artery 86.4 cm/s. Posterior tibial artery 37.0 cm/s. Dorsalis pedis artery 45.2 cm/s. IMPRESSION: Elevated velocity in the distal superficial femoral artery, worrisome for possible significant stenos is. Consider CT angiogram with bilateral lower extremity runoff. POS: [facility]
[2017-09-16 18:20] VITALS: BP 159/73
--- NOTE | 2017-09-17 00:43 | DIS ---
DATE OF ADMISSION: 09/15/2017 DATE OF DISCHARGE: 09/16/2017 DISCHARGE DIAGNOSES: 1. Syncope, recurrent multifactorial including dehydration. 2. Acute kidney injury secondary to volume depletion, improved. 3. Chronic kidney disease stage 4, stable. 4. Hyponatremia, chronic. 5. Demand ischemia of the myocardium without evidence of acute coronary syndrome. 6. Dehydration, resolved. 7. Left lower extremity edema, chronic. 8. Deconditioning with history of falls. CONSULTATIONS: None. PERTINENT LAB AND X-RAY FINDINGS: Sodium ranged between 133 to 135, potassium ranged between 3.2 to 3.3, creatinine ranged between 2.68 to 3.34. Estimated GFR ranged between 18 to 23. Magnesium level 2.5. LFTs within normal limits. Troponin I ranged between 0.064 to 0.082. TSH 0.86. Serum cortis ol level 16.3. CBC showed hemoglobin ranging between 11.1 to 12.1. PT 23.9, INR 2.1. CT of the bra in without contrast dated 09/14/2017 showed no acute intracranial process. Cerebral atrophy noted. Carotid Doppler study dated 09/15/2017 showed bilateral carotid plaques without evidence of focal summer nosis. Bilateral lower extremity venous and arterial Doppler study dated 09/16/2017 showed no eviden ce for venous thrombosis in the left lower extremity. Arterial studies showed elevated velocity in t he distal superficial femoral artery with questionable stenosis. HOSPITAL COURSE: The patient was observed on the telemetry unit after initially presenting status po st syncopal episode. The patient was noted with elevated creatinine of 3.34 above baseline chronic k idney disease stage 4 and clinical evidence of dehydration. The patient underwent extensive evaluati on including neuro imaging showing no acute intracranial process. The patient also underwent interro gation of [employer] AICD showing normal functioning device without evidence of acute arrhythmia or di scharge. The patient was placed on intravenous normal saline and given general supportive measures. Carotid Doppler study was performed showing bilateral carotid plaques without focal stenosis. The p atient was also noted with chronic hyponatremia, various metabolic derangements all chronic appearing when reviewing the electronic medical record. The patient was noted with generalized deconditioning and unsteady gait with evaluation by the physical therapy service. Due to patient's recurrent falls and syncope as well as living independently, the patient was deemed an appropriate candidate for [facility] inpatient rehabilitation. The patient has been approved to transfer to [facility] for further functional assessment and clinical monitoring. I have examined the patient at the time of discharge, discussed pertinent labs and radiographic findings with plans for discharge . The patient verbalized understanding and agreeable to discharge on 09/16/2017. DISCHARGE MEDICATIONS: 1. BuSpar 10 mg p.o. t.i.d. 2. Carvedilol 3.125 mg p.o. b.i.d. 3. Lasix 40 mg p.o. b.i.d., resume on 09/19/2017. 4. Gabapentin 100 mg p.o. b.i.d. 5. Hydrocortisone 30 mg p.o. b.i.d. 6. Synthroid 88 mcg p.o. daily. 7. Meclizine 25 mg p.o. t.i.d. p.r.n. 8. Metolazone 5 mg p.o. Mondays and Fridays. 9. Nitroglycerin 0.4 mg sublingually as needed for chest pain. 10. Omeprazole 20 mg 1 tab p.o. daily. 11. Ranitidine 150 mg p.o. b.i.d. 12. Coumadin 4 mg on Wednesday, , Wednesday, and Wednesday; 5 mg on Wednesday, Wednesday, and Wednesday. FOLLOWUP: The patient to follow up with his primary care provider, Dr. Marcio Duncan within 7-10 days of discharge and after discharge from [facility]. The patient will follow up with Dr. Chelly Rodríguez with [facility] Cardiology Service and to call her office for appoin tment time and date. SPECIAL INSTRUCTIONS: Recommend evaluation of left lower extremity for potential focal stenosis of t he left superficial femoral artery noted on arterial Doppler study. The patient may benefit from CT angiogram study and eventual Vascular Surgery evaluation. CONDITION ON DISCHARGE: Stable. ACTIVITY: Ad angus. Rolling walker with ambulation. Fall risk precautions. DIET: Heart healthy. CODE STATUS: FULL. DISPOSITION: Discharged to [facility] on 09/16/2017.
[2017-09-17] MEDS ORDERED: Famotidine 20 MG TAB PO SCH (09:00)
== END 2017-09-16 17:48 | disposition home or self-care (01) ==
LOC: ERS 21:35 → 2SW 09-15 00:41
PROVIDERS: ADMIT Internal Medicine; ATTEND Internal Medicine
DX: R55 Syncope and collapse (principal); I13.0 Hypertensive heart and chronic kidney disease with heart failure and stage 1 through stage 4 chronic kidney disease, or unspecified chronic kidney disease; N18.4 Chronic kidney disease, stage 4 (severe); I50.40 Unspecified combined systolic (congestive) and diastolic (congestive) heart failure; N17.9 Acute kidney failure, unspecified; E89.3 Postprocedural hypopituitarism; E27.49 Other adrenocortical insufficiency; G62.9 Polyneuropathy, unspecified; E87.1 Hypo-osmolality and hyponatremia; E03.9 Hypothyroidism, unspecified; I24.8 Other forms of acute ischemic heart disease; E86.0 Dehydration; Z91.81 History of falling; Z86.711 Personal history of pulmonary embolism; Z79.52 Long term (current) use of systemic steroids; Z79.01 Long term (current) use of anticoagulants; Z79.899 Other long term (current) drug therapy; Z88.2 Allergy status to sulfonamides; Z88.1 Allergy status to other antibiotic agents; Z91.041 Radiographic dye allergy status
CPT/HCPCS: 70450; 80048; 80053; 82533; 82550; 82553; 83735; 84443; 84484 ×3; 85007; 85025; 85027; 85610 ×2; 85730; 93005; 93880; 93923; 93971; 94760; 96360; 96361 ×2; 97116; 97139 ×2; 97530; 99285; G0378; G8978; G8979; G8987; G8988; 36415; A4216

== ENCOUNTER 2017-09-27 11:44 | Outpatient (CLI) | payer MEDICARE, OTHER ==
--- NOTE | 2017-09-27 14:14 | RAD ---
THREE VIEWS RIGHT SHOULDER: History: Right shoulder pain. FINDINGS: AP internally, externally and scapular Y views obtained. There is intracardiac defibrillator noted. The right shoulder is unremarkable. No evidence of right shoulder fractures, subluxations, or bony le sions seen. IMPRESSION: Normal three views right shoulder. POS: [facility]
== END 2017-09-27 11:45 | disposition home or self-care (01) ==
LOC: RAD 11:44
PROVIDERS: ATTEND Internal Medicine
DX: M25.511 Pain in right shoulder (principal)

== ENCOUNTER 2017-11-05 08:48 | Outpatient (CLI) | payer MEDICARE, OTHER | END 2017-11-05 08:49 | disposition home or self-care (01) | PROVIDERS: ATTEND Otolaryngology Plastic Surgery within the Head & Neck | DX: R13.13 Dysphagia, pharyngeal phase (principal); R63.3 Feeding difficulties | CPT/HCPCS: 74230; G8996-GN-CJ; G8997-GN-CJ; G8998-GN-CJ ==

== ENCOUNTER 2017-12-27 22:33 | Inpatient (IN) | payer MEDICARE, OTHER ==
[2017-12-27 23:11] LABS: INR-International Normal Ratio 3.3; PTT 44.8 SEC (22.9-36.1); Prothrombin Time 33.6 SEC (12.0-14.7)
--- NOTE | 2017-12-27 23:14 | RAD ---
CHEST ONE VIEW: HISTORY: Chest pain. DVT. COMPARISON: Radiograph from 09/25/2017. FINDINGS: There is a right basilar air space opacity. Heart size is enlarged. Cardiac device is similar. No pneumothorax. No acute osseous abnormality. IMPRESSION: Right basilar air space opacity, concerning for infection. Follow-up after treatment recommended. POS: [facility]
[2017-12-27 23:18] LABS: Band 17 % (5-11); Eosinophils 1 % (0-10); Hemoglobin 11.7 g/dL (14.0-18.0); Lymphocytes 13 % (21-51); MDiff Complete? YES; Mean Corpuscular HGB CONC 35.8 g/dL (32.0-36.0); Mean Corpuscular Hemoglobin 34.2 pg (27.0-31.0); Mean Corpuscular Volume 95.7 fL (78.0-98.0); Mean Platelet Volume 7.9 fL (7.4-10.4); Monocytes 3 % (0-10); Neutrophil 66 % (42-75); Platelet Count 142 thou/uL (130-400); Red Blood Cell (RBC) Count 3.42 mill/uL (4.70-6.10); White Blood Cell (WBC) Count 10.5 thou/uL (4.8-10.8)
[2017-12-27 23:26] LABS: ALT (SGPT) 25 U/L (8-55); AST (SGOT) 30 U/L (5-34); Albumin 3.7 g/dL (3.4-4.8); Alkaline Phosphatase 112 U/L (40-150); Anion Gap 17 mmol/L (10-20); BUN (Urea Nitrogen) 81 mg/dL (8.4-25.7); Bilirubin, Total 0.5 mg/dL (0.2-1.2); Calc. Creatinine Clearance 0 mL/min (70-130); Calcium 9.3 mg/dL (7.8-10.44); Carbon Dioxide 30 mmol/L (23-31); Chloride 93 mmol/L (98-107); D-Dimer Test 14.91 *mcg/mL (0.27-0.43); Estimated GFR-MDRD 18; Globulin 2.9 g/dL (2.4-3.5); Glucose 176 mg/dL (83-110); Potassium 3.2 mmol/L (3.5-5.1); Protein, Total 6.6 g/dL (5.8-8.1); Sodium 137 mmol/L (136-145)
[2017-12-27 23:31] LABS: CKMB 3.3 ng/mL (0-6.6); Troponin I 0.098 ng/mL (< 0.028)
--- NOTE | 2017-12-27 23:45 | ULT ---
LEFT LOWER EXTREMITY VENOUS DOPPLER: HISTORY: Swelling and edema. COMPARISON: Left-sided venous Doppler from 09/16/2017. FINDINGS: The left lower extremity venous system was interrogated with a linear transducer. The common femoral , femoral, and proximal portions of greater saphenous and deep femoral veins, as well as the poplitea l and posterior tibial veins were interrogated. Extensive subcutaneous soft tissue edema. No deep v enous thrombosis. IMPRESSION: No deep venous thrombosis. POS: [facility]
[2017-12-28 00:01] LABS: Bilirubin Negative (Negative); Blood, Urine Negative (Negative); Clarity CLEAR (Clear); Glucose, Urine (Dipstick) Negative (Negative); Leukocyte Negative (Negative); Nitrite Negative (Negative); Protein, Urine (Dipstick) Negative (Neg-Trace); Specific Gravity, Urine 1.009 (1.002-1.036); Urobilinogen 0.2 mg/dL (0.2-1.0); pH, Urine 6.5 (5.0-9.0)
[2017-12-28] MEDS ORDERED: cefTRIAXone\\ROCEPHIN 1 GM VIAL ONE (00:54)
[2017-12-28 02:41] LABS: Troponin I 0.108 ng/mL (< 0.028)
[2017-12-28 05:50] LABS: Troponin I 0.103 ng/mL (< 0.028)
--- NOTE | 2017-12-28 09:32 | CT ---
PRELIMINARY REPORT/[facility]/EMERGENTY AFTER-HOURS PROCEDURE CT Chest Without Intravenous Contrast CLINICAL HISTORY: 87 years old, male; Pain; Chest pain; Patient HX: Patient presents for evaluation of pain TECHNIQUE: Axial computed tomography images of the chest without intravenous contrast. Coronal reformatted images were created and reviewed. COMPARISON: CT Chest WO Con 2017-12-28 01:14 FINDINGS: Lungs: No acute findings. No mass. No consolidation. Few small granulomas. Mild basilar and periphera l scarring. Pleural space: No pneumothorax. No effusion. Heart: No significant cardiomegaly. Coronary calcifications. Left subclavian biventricular pacemaker. Trace pericardial fluid. Mediastinum: Small hiatal hernia. Mildly patulous esophagus. Bones/joints: No acute fracture. Old rib fractures. Soft tissues: No acute findings. Vasculature: Atherosclerotic calcifications. No thoracic aortic aneurysm. Lymph nodes: No lymphadenopathy. Upper abdomen: Small gallstone. Bilateral perinephric stranding. IMPRESSION: No acute pulmonary findings. Coronary calcifications and other findings above. Thank you for allowing us to participate in the care of your patient. Dictated and Authenticated by: Castillo Disla MD 12/28/2017 3:56 AM Central Time ([place] & [place]) CT CHEST NONCONTRAST: Date: 12-28-17 Performed on emergency basis at 0154 hours. History: Chest pain. FINDINGS: I agree with the preliminary report by from [facility]. There is prominent atheroscle rosis. No acute abnormalities are demonstrated on the noncontrast enhanced exam. Lack of contrast duque its evaluation of the soft tissues. Code QA POS: [facility]
--- NOTE | 2017-12-28 12:45 | CT ---
CT BRAIN WITHOUT CONTRAST: HISTORY: Headache. COMPARISON: 09/15/2017 FINDINGS: Changes of chronic small vessel ischemic disease and cortical atrophy are again seen. The ventricula r size is stable, and the basilar cisterns are patent. No evidence of acute infarct, hemorrhage, mid line shift, or abnormal extraaxial fluid collections is noted. The bony calvarium is intact. The vi sualized paranasal sinuses are well aerated. Stable appearance of the suprasellar region and the stefani la turcica, likely postoperative. IMPRESSION: Stable examination. No CT evidence of acute intracranial process. POS: [facility]
[2017-12-28] MEDS ORDERED: Acetaminophen 325 MG TAB PO PRN (13:07)
[2017-12-28] MEDS ORDERED: Senokot 8.6 MG TAB PO PRN (13:07)
[2017-12-28] MEDS ORDERED: Bisacodyl 5 MG TAB PO PRN (13:07)
[2017-12-28] MEDS ORDERED: Ondansetron ODT 4 MG TAB PO PRN (13:07)
[2017-12-28] MEDS ORDERED: Fleet Enema 133 ML BOT PR PRN (13:07)
[2017-12-28] MEDS ORDERED: Meclizine HCl 25 MG TAB PO PRN (13:16)
[2017-12-28] MEDS ORDERED: WARFARIN SODIUM 4 MG PO SCH (13:30)
[2017-12-28] MEDS ORDERED: VANCOMYCIN IVPB PRN (13:55)
[2017-12-28] MEDS ORDERED: Vancomycin HCl 500 MG in Sodium Chloride 0.9% 100 ML IVPB SCH (14:00)
[2017-12-28 14:36] LABS: Prothrombin Time 38.6 SEC (12.0-14.7)
[2017-12-28 14:50] LABS: Albumin 3.3 g/dL (3.4-4.8); Anion Gap 12 mmol/L (10-20); BUN (Urea Nitrogen) 78 mg/dL (8.4-25.7); BUN/Creatinine Ratio 27.18; Calc. Creatinine Clearance 27 mL/min (70-130); Carbon Dioxide 33 mmol/L (23-31); Chloride 93 mmol/L (98-107); Estimated GFR-MDRD 21; Glucose 118 mg/dL (83-110); Phosphorus 3.3 mg/dL (2.3-4.7); Sodium 135 mmol/L (136-145)
[2017-12-28] MEDS: busPIRone HCl 10 MG TAB PO SCH ×2 (14:53→20:34)
[2017-12-28] MEDS: Gabapentin 100 MG CAP PO PRN (14:53)
[2017-12-28] MEDS: Docusate 100 MG CAP PO SCH (20:34)
[2017-12-28] MEDS: Carvedilol 3.125 MG TAB PO SCH (20:34)
[2017-12-28] MEDS: Hydrocortisone 10 mg Tablet PO SCH (20:34)
--- NOTE | 2017-12-29 01:50 | HP ---
CHIEF COMPLAINT: Left leg pain. HISTORIAN: Patient and patient's furnace caretaker reliable. HISTORY OF PRESENT ILLNESS: This is an 87-year-old male with a past medical history of CKD stage 3, UTI in the past, nephrolithiasis, panhypopituitarism, cardiomyopathy, PE, history of atrial fibrillation who presented with left leg pain. The pain started the night prior to admission and pain was very sharp in nature; on pain scale from 0-10, pain was 9/10. Nothing seemed to make it better and the pain was sudden in onset per the furnace caretaker and has been getting worse since the pain started. Patient also states that he has associated symptoms of left abdominal pain, some shortness of breath and bilateral lower extremity edema. Of note, patient was in the hospital on 09/15/2017 and was discharged on 09/16/2017 for syncope. REVIEW OF SYSTEMS: Positive for left leg pain, bilateral lower extremity edema and some shortness of breath otherwise as stated and documented in [facility], all other systems reviewed and are all negative. PAST MEDICAL HISTORY: Refer to the [facility]. PAST SURGICAL HISTORY: Patient had tonsillectomy, pacemaker. PSYCHIATRIC HISTORY: No previous psychiatric history. SOCIAL HISTORY: Former tobacco smoker. Patient quit about a year ago. Patient denies illicit drug use. The patient denies alcohol use. Patient lives alone at home with a furnace caretaker. FAMILY HISTORY: Reviewed and noncontributory. ALLERGIES: Patient is allergic to CIPROFLOXACIN, IODINE, MACRODANTIN, SULFONAMIDES. CURRENT MEDICATIONS: Patient is on carvedilol 3.125 b.i.d., buspirone 10 mg t.i.d., gabapentin 800 mg p.r.n., metolazone 5 mg, levothyroxine 88 mcg daily, Dimock 1 oral p.r.n., warfarin 5 mg oral Wednesday, Wednesday, and Wednesday, 4 mg Tuesdays, , Wednesday and Wednesday, ranitidine 150 mg b.i.d., meclizine 25 mg q.8 hours p.r.n., torsemide 100 mg daily, oral Lasix 40 mg b.i.d. CODE STATUS: The patient is FULL CODE. The patient wants to be resuscitated and wants to be intubated. PHYSICAL EXAMINATION: VITAL SIGNS: In the ED, the patient's blood pressure 125/51, pulse 87, respiratory rate of 16, temperature of 98.4, O2 sat of 100%. On admission, patient's blood pressure 117/65, pulse 79, respiratory rate of 19, temperature 98, O2 sat 100%. CONSTITUTIONAL: The patient appears to not be in acute distress. Patient is lying in bed comfortable. Patient is eating. Patient is an obese male. HEENT: Normocephalic, atraumatic. Pupils are equally round and reactive to light. Extraocular muscles are intact. No sclerae icterus noted. NECK: No JVD. Trachea is midline. RESPIRATORY: The patient has bilateral wheezes noted. No rhonchi is appreciated. CARDIOVASCULAR: S1, S2, no murmurs, no rubs, no gallops appreciated. ABDOMEN: Obese abdomen, distended, no tenderness noted. EXTREMITIES: Upper extremity; 5/5 upper extremity strength. Good pulses bilaterally. Lower extremity; patient has 2+ bilateral pitting edema with the left leg larger compared to the right. Patient also had erythema noted in the left leg extending from the knee all the way down to the ankle. There is some warmth noted and tenderness to palpation at the lower extremity. The patient denies sensation to touch at dorsal aspect of the left foot. NEUROLOGIC: Cranial nerves II-XII intact. Patient has decreased sensation in the dorsal aspect of the left foot, otherwise no focal neurologic deficit noted. SKIN: Patient has erythema noted at the left lower extremity extending from the knee all the way down to the ankle. No ulcerations noted. There is some weeping at the anterior aspect of the left lower extremity. PSYCHIATRIC: The patient is alert, oriented x3, normal affect, good judgment. ED COURSE: Patient received Rocephin, vancomycin, and normal saline 1 liter in the ED. IMAGING DATA: Chest x-ray that was done in the ED showed right basilar airspace opacity concerning for infection. CT brain done that was stable. There was no CT evidence of acute intracranial process. CT chest that was done showed prominent atherosclerosis. No acute abnormalities on the noncontrast enhanced exam. LABORATORY DATA: WBC 10.5, hemoglobin 11.7, hematocrit 32.8, platelets of 142. PT 33.6. INR 3.3, PTT 44.8. Electrolytes: Sodium 137, potassium 3.2, chloride 93, BUN 81, creatinine 3.23, glucose 176, troponin 0.098, beta natriuretic peptide 123.0. ASSESSMENT AND PLAN: This is an 87-year-old male admitted for: 1. Left leg cellulitis. At this point, we've demarcated lower extremity. We will start the patient on vancomycin to be dosed by pharmacy. We will continue the patient on this antibiotic. We will reexamine the patient in the morning. We will hold off fluids since the patient had bilateral 2+ edema of the lower extremity. We will monitor the patient closely and follow up morning labs and ordered for blood cultures. We will followup of blood cultures in a.m. 2. Bilateral pitting edema of the lower extremities, we will hold off oral IV fluids. We will give the patient Lasix IV. 3. Acute on chronic renal failure. We consulted Nephrology and we ordered renal function panel. We will follow up with Nephrology regarding further workup. We will monitor morning BNP. 4. History of atrial fibrillation. We will continue the patient on his dose of Coumadin. We will follow the patient closely. 5. Questionable right lung opacity seen on x-ray. CT of chest doesn't show any pneumonia. Will continue to monitor the patient 6. Congestive Heart failure. Systolic and diastolic. Will continue lasix. will consider cardiac consult. 7. DVT ppx. pepcid, SCD and warfarin MTDD
[2017-12-29 02:25] LABS: Vancomycin, Trough 13.1 ug/mL
[2017-12-29 02:27] LABS: #Basophils 0.1 thou/uL (0.0-0.2); #Eosinphils 0.1 thou/uL (0.0-0.7); #Lymphocytes 1.6 thou/uL (1.20-3.40); #Monocytes 0.5 thou/uL (0.11-0.59); #Neutrophils 8.9 thou/uL (1.40-6.50); %Lymphocytes 14.4 % (21.0-51.0); %Monocytes 4.5 % (0.0-10.0); %Neutrophils 79.2 % (42.0-75.0); Hemoglobin 10.6 g/dL (14.0-18.0); Mean Corpuscular HGB CONC 34.2 g/dL (32.0-36.0); Mean Corpuscular Hemoglobin 33.5 pg (27.0-31.0); Mean Corpuscular Volume 97.7 fL (78.0-98.0); Mean Platelet Volume 8.3 fL (7.4-10.4); PLT Morphology Comment Appears Decreased; Platelet Count 111 thou/uL (130-400); RBC Distribution Width 13.1 % (11.5-14.5); Red Blood Cell (RBC) Count 3.16 mill/uL (4.70-6.10); White Blood Cell (WBC) Count 11.3 thou/uL (4.8-10.8)
[2017-12-29 02:44] LABS: ALT (SGPT) 19 U/L (8-55); AST (SGOT) 15 U/L (5-34); Albumin 3.1 g/dL (3.4-4.8); Alkaline Phosphatase 65 U/L (40-150); Anion Gap 16 mmol/L (10-20); BUN (Urea Nitrogen) 76 mg/dL (8.4-25.7); Bilirubin, Total 0.8 mg/dL (0.2-1.2); Calc. Creatinine Clearance 27 mL/min (70-130); Calcium 8.8 mg/dL (7.8-10.44); Carbon Dioxide 27 mmol/L (23-31); Chloride 95 mmol/L (98-107); Estimated GFR-MDRD 21; Globulin 2.7 g/dL (2.4-3.5); Glucose 117 mg/dL (83-110); Magnesium 2.2 mg/dL (1.6-2.6); Protein, Total 5.8 g/dL (5.8-8.1); Sodium 135 mmol/L (136-145)
[2017-12-29] MEDS ORDERED: Vancomycin HCl 1 GM in Premix Bag 1 BAG IVPB SCH (03:00)
[2017-12-29] MEDS: Levothyroxine Sodium 88 MCG TAB PO SCH (05:56)
[2017-12-29] MEDS ORDERED: TROSPIUM 20 MG TABLET PO SCH (09:00)
[2017-12-29] MEDS: busPIRone HCl 10 MG TAB PO SCH ×3 (09:15→21:40)
--- NOTE | 2017-12-29 09:29 | CON ---
DATE OF CONSULTATION: 12/28/2017 CONSULTING PHYSICIAN: Dr. Stokes. REASON FOR CONSULTATION: Acute kidney injury on chronic kidney disease. REASON FOR ADMISSION: Shortness of breath. HISTORY OF PRESENT ILLNESS: An 87-year-old male with history of CKD, hypothyroidism, hypertension, cardiomyopathy, CHF, and peripheral neuropathy, came to the hospital with shortness of breath and was treated for CHF exacerbation. No fever or chills. No nausea or vomiting. He complains of shortness of breath. No skin rash. No abdominal pain. PAST MEDICAL HISTORY: Positive for , syncope, hypothyroidism, hypertension , chronic kidney disease, weakness, CHF, cardiomyopathy, hyponatremia, neuropathy, pulmonary embolism, prostate cancer. PAST SURGICAL HISTORY: Pituitary resection, AICD placement, colonoscopy, penile implant, radical prostatectomy. HOME MEDICATIONS: Include BuSpar, gabapentin, metolazone, carvedilol, warfarin , hydrocortisone, omeprazole, nitroglycerin, furosemide, finasteride, potassium , meclizine, levothyroxine. ALLERGIES: CIPROFLOXACIN, IODINE, NITROFURANTOIN, SULFONAMIDES. SOCIAL HISTORY: No smoking, alcohol, or illicit drug abuse. FAMILY HISTORY: No history of kidney disease. REVIEW OF SYSTEMS: The following complete review of systems was negative, unless otherwise mentioned in the HPI or below: Constitutional: Weight loss or gain, ability to conduct usual activities. Skin: Rash, itching. Eyes: Double vision, pain. ENT/Mouth: Nose bleeding, neck stiffness, pain, tenderness. Cardiovascular: Palpitations, dyspnea on exertion, orthopnea. Respiratory: Shortness of breath, wheezing, cough, hemoptysis, fever, or night sweats. Gastrointestinal: Poor appetite, abdominal pain, heartburn, nausea, vomiting, constipation, or diarrhea. Genitourinary: Urgency, frequency, dysuria, nocturia. Musculoskeletal: Pain, swelling. Neurologic/Psychiatric: Anxiety, depression. Allergy/Immunologic: Skin rash, bleeding tendency. PHYSICAL EXAMINATION: GENERAL: This is an obese male in no apparent distress. VITAL SIGNS: Temperature 98.1, pulse 82, respiratory rate 18, blood pressure 130/63. HEENT: Atraumatic, normocephalic. Oral mucosa is moist. NECK: Supple. CARDIOVASCULAR: S1, S2 heard. RESPIRATORY: Clear. GASTROINTESTINAL: Abdomen is soft. MUSCULOSKELETAL: 2+ edema. DERMATOLOGIC: No skin rash. NEUROLOGIC: Alert, awake. PSYCHIATRIC: Mood and affect normal. LABORATORY DATA: Hemoglobin is 11.7. Potassium is 3, BUN is 78, creatinine is 2.87 from 3.2 yesterday. ASSESSMENT AND PLAN: 1. Acute kidney injury on chronic kidney disease, renal function is better. Creatinine is better at 2.8 from 3.2. BUN is better 78 from 81. 2. We will continue with current management. 3. Hypokalemia. Replace and monitor. 4. Metabolic alkalosis. Monitor. 5. Hyponatremia. Limit fluid intake. 6. Anemia, mild. 7. Cardiorenal syndrome. 8. Hypertension, stable. 9. Hypoalbuminemia. 10. Continue empiric antibiotics. Follow up cultures and currently on Lasix with close monitoring of renal function. Creatinine is getting better. We will follow. 11. Edema. We will continue on Lasix. We will continue to follow. Thank you for the consult. KEEGAN
--- NOTE | 2017-12-29 09:40 | PRG ---
DATE OF SERVICE: 12/29/2017 SUBJECTIVE: Patient was seen and examined at bedside and overnight events noted. Patient denies any shortness of breath or chest pain or palpitation. No history of nausea or vomiting or diarrhea or f ever or chills or cramps. OBJECTIVE: GENERAL: This is obese male in no apparent distress. VITAL SIGNS: Temperature 98.9, pulse 94, respiratory rate 18, blood pressure 130/58. HEENT: Atraumatic, normocephalic. Oral mucosa is moist. NECK: Supple. CARDIOVASCULAR: S1, S2 heard. Rate and rhythm regular. RESPIRATORY: Clear to auscultation. GASTROINTESTINAL: Abdomen is soft. MUSCULOSKELETAL: No tenderness. 2+ edema. DERMATOLOGIC: No skin rash. NEUROLOGIC: Alert and awake and oriented x3. No focal neurologic deficits. Moving all the extremiti es. PSYCHIATRIC: Mood and affect normal. LABORATORY DATA: Potassium is 3.0, BUN is 76, creatinine is 2.8. ASSESSMENT AND PLAN: 1. Acute kidney injury on chronic kidney stage IV with improvement in renal function, but close to b aseline. Avoid nephrotoxins. Currently on diuretics. 2. Hypokalemia, continue diuretics, replace and monitor. 3. Hyponatremia, limit fluid intake. 4. Anemia. 5. Hypertension. 6. Cardiorenal syndrome. 7. Hypoalbuminemia. Monitor renal function, avoid nephrotoxins.
[2017-12-29] MEDS: Furosemide 40 MG/4 ML VIAL SLOW IVP SCH (09:45)
--- NOTE | 2017-12-29 10:04 | PQF ---
CLINICAL DOCUMENTATION IMPROVEMENT CLARIFICATION FORM: ICD-10 Updated PLEASE DO AN ADDENDUM TO THE PROGRESS NOTE WITH ANY DOCUMENTATION UPDATES OR ADDITIONS AND CARRY THROUGH TO DC SUMMARY. THANK YOU. DATE: 12/29 ATTN: DR. SERG DAVIS Please exercise your independent, professional judgment in responding to the clarification form. Clinical indicators are provided on the bottom of this form for your review. Please check appropriate box(s): SYSTOLIC & DIASTOLIC CONGESTIVE HEART FAILURE: ACUITY [ ] Acute [X ] Acute on Chronic [ ] Chronic [ ] Other diagnosis [ ] Unable to determine For continuity of documentation, please document condition throughout progress notes and discharge summary. Thank You. CLINICAL INDICATORS - SIGNS / SYMPTOMS / LABS ER PHYSICIAN DOCUMENTATION 12/28: PHYSICAL EXAM: 1+ PITTING EDEMA BILATERAL LE ATTENDING H&P 12/28: HX OF PRESENT ILLNESS: ...PATIENT ALSO STATES HE HAS SOME SOB & BILATERAL LE EDEMA; PHYSICAL EXAM: EXTREMITIES: ...PATIENT HAS 2+ BILATERAL LE PITTING EDEMA ASSESSMENT & PLAN: 6) CONGESTIVE HEART FAILURE: SYSTOLIC & DIASTOLIC. WILL CONTINUE LASIX. WILL CONSIDER CARDIAC CONSULT BNP: 123 RISKS: HX OF CARDIOMYOPATHY CKD 3 HTN TREATMENTS: IV LASIX (12/28 - PRESENT) TELEMETRY MONITORING THANK YOU! Reina (This form is maintained as a part of the permanent medical record) 2015 [employer]. All Rights Reserved MTDD
[2017-12-29] MEDS: Hydrocortisone 10 mg Tablet PO SCH ×2 (12:10→21:40)
[2017-12-29] MEDS: Famotidine 20 MG TAB PO SCH (12:10)
[2017-12-29] MEDS: Potassium Chloride 10 MEQ TAB PO SCH (12:10)
[2017-12-29] MEDS: Finasteride 5 MG TAB PO SCH (12:10)
[2017-12-29] MEDS: Carvedilol 3.125 MG TAB PO SCH ×2 (12:10→21:40)
[2017-12-29] MEDS: Docusate 100 MG CAP PO SCH ×2 (12:10→21:40)
--- NOTE | 2017-12-29 13:44 | RAD ---
MODIFIED BARIUM SWALLOW IN THE PRESENCE OF THE SPEECH THERAPIST: HISTORY: Dysphagia, unspecified; feeding difficulties; aspiration pneumonia. FINDINGS: No laryngeal penetration, aspiration, or persistent pooling of contrast in the piriform sinuses or va llecula is seen. Please see the recommendations of the speech therapist for further management. POS: JANNET
--- NOTE | 2017-12-29 14:54 | PDOC.PN ---
- Subjective Encounter Start Date: 12/29/17 Encounter Start Time: 14:52 CC: Left leg pain Patient seen and examined. - Objective Resuscitation Status: Resuscitation Status FULL:Full Resuscitation MAR Reviewed: Yes Vital Signs & Weight: Vital Signs (12 hours) Temp Pulse Resp BP Pulse Ox 12/29/17 12:00 99 F 91 18 124/64 95 12/29/17 07:55 98.9 F 94 18 93 L 12/29/17 07:52 98.9 F 94 18 130/58 L 92 L 12/29/17 03:48 98.7 F 92 20 126/76 92 L Weight Admit Weight 234 lb Weight 231 lb 14.4 oz I&O: 12/28/17 12/29/17 12/30/17 06:59 06:59 06:59 Intake Total 110 1072 Output Total 225 50 Balance -115 1022 Result Diagrams: 01/10/18 14:45 01/10/18 05:41 Additional Labs: Accuchecks 12/28/17 20:42 POC Glucose 143 H Phys Exam - Physical Examination Constitutional: NAD HEENT: PERRLA, moist MMs Neck: no JVD, supple, full ROM mild wheeze. Cardiovascular: RRR, no significant murmur Gastrointestinal: soft, non-tender distended abdomen. positive bowel sounds. Musculoskeletal: edema present Neurological: moves all 4 limbs Psychiatric: A&O x 3 Skin: no rash Dx/Plan (1) Aspiration pneumonia Code(s): J69.0 - PNEUMONITIS DUE TO INHALATION OF FOOD AND VOMIT Status: Resolved (2) Leg edema Code(s): R60.0 - LOCALIZED EDEMA Status: Acute Comment: continue diureses. Cardio and nephro workup and management in progress. (3) Acute renal failure superimposed on stage 4 chronic kidney disease Code(s): N17.9 - ACUTE KIDNEY FAILURE, UNSPECIFIED; N18.4 - CHRONIC KIDNEY DISEASE, STAGE 4 (SEVERE) Status: Acute Comment: nephrology workup/ management in progress. 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 (7) General weakness Code(s): R53.1 - WEAKNESS Status: Chronic (8) Hypertension Code(s): I10 - ESSENTIAL (PRIMARY) HYPERTENSION Status: Chronic Qualifiers: Hypertension type: essential hypertension Qualified Code(s): I10 - Essential (primary) hypertension Comment: Stable, continue current BP regimen (9) Hypothyroidism Code(s): E03.9 - HYPOTHYROIDISM, UNSPECIFIED Status: Chronic Qualifiers: Hypothyroidism type: postoperative Qualified Code(s): E89.0 - Postprocedural hypothyroidism Comment: continue current management. (10) Obesity Code(s): E66.9 - OBESITY, UNSPECIFIED Status: Chronic (11) Physical deconditioning Code(s): R53.81 - OTHER MALAISE Status: Chronic Comment: will benefit from rehab - Plan DVT proph w/SCDs * . Review of Systems - Review of Systems Constitutional: weakness. negative: fever, chills, sweats, malaise, other Eyes: negative: Pain, Vision Change, Conjunctivae Inflammation, Eyelid Inflammation, Redness, Other ENT: negative: Ear Pain, Ear Discharge, Nose Pain, Nose Discharge, Nose Congestion, Mouth Pain, Mouth Swelling, Throat Pain, Throat Swelling, Other Respiratory: Cough. negative: Dry, Shortness of Breath, Hemoptysis, SOB with Excertion, Pleuritic Pain, Sputum, Wheezing Cardiovascular: edema. negative: chest pain, palpitations, orthopnea, paroxysmal nocturnal dyspnea, light headedness, other Gastrointestinal: negative: Nausea, Vomiting, Abdominal Pain, Diarrhea, Constipation, Melena, Hematochezia, Other Genitourinary: negative: Dysuria, Frequency, Incontinence, Hematuria, Retention , Other Musculoskeletal: Leg Pain. negative: Neck Pain, Shoulder Pain, Arm Pain, Back Pain, Hand Pain, Foot Pain, Other Skin: negative: Rash, Lesions, Alirio, Bruising, Other Neurological: negative: Weakness, Numbness, Incoordination, Change in Speech, Confusion, Seizures, Other Other: Left leg pain - Medications/Allergies Allergies/Adverse Reactions: Allergies Allergy/AdvReac Type Severity Reaction Status Date / Time ciprofloxacin HCl Allergy Verified 07/13/17 21:32 [From Cipro] iodine Allergy Verified 07/13/17 21:32 nitrofurantoin Allergy Verified 07/13/17 21:32 macrocrystalline [From Macrodantin] Sulfa (Sulfonamide Allergy Verified 07/13/17 21:32 Antibiotics) Medications: Current Medications Acetaminophen (Tylenol) 650 mg PO Q4H PRN PRN Reason: Headache or Pain Bisacodyl (Dulcolax) 10 mg PO DAILYPRN PRN PRN Reason: Constipation Buspirone HCl (Buspar) 10 mg PO TID [facility] Last Admin: 12/29/17 09:15 Dose: Not Given Carvedilol (Coreg) 3.125 mg PO BID [facility] Last Admin: 12/29/17 12:10 Dose: 3.125 mg Docusate Sodium (Colace) 100 mg PO BID [facility] Last Admin: 12/29/17 12:10 Dose: 100 mg Famotidine (Pepcid) 20 mg PO DAILY [facility] Last Admin: 12/29/17 12:10 Dose: 20 mg Finasteride (Proscar) 5 mg PO DAILY [facility] Last Admin: 12/29/17 12:10 Dose: 5 mg Furosemide (Lasix) 40 mg SLOW IVP DAILY [facility] Last Admin: 12/29/17 09:45 Dose: 40 mg Gabapentin (Neurontin) 100 mg PO BID PRN PRN Reason: Pain Last Admin: 12/28/17 14:53 Dose: 100 mg Hydrocortisone (Cortef) 30 mg PO BID [facility] Last Admin: 12/29/17 12:10 Dose: 30 mg Vancomycin HCl 1 gm/ Device 200 mls @ 200 mls/hr IVPB .PENDING LEVEL [facility] Levothyroxine Sodium (Synthroid) 88 mcg PO 0600 [facility] Last Admin: 12/29/17 05:56 Dose: Not Given Meclizine HCl (Antivert) 25 mg PO TID PRN PRN Reason: Dizziness Miscellaneous Medication (Pharmacy To Dose) 1 each IVPB PRN PRN PRN Reason: Pharmacy to dose Morphine Sulfate (Morphine) 2 mg SLOW IVP Q4H PRN PRN Reason: Severe Pain (7-10) Last Admin: 12/29/17 05:55 Dose: 2 mg Non-Formulary Medication (Warfarin Sodium [Warfarin Sodium]) 4 mg PO SEEPHYS [facility] Ondansetron HCl (Zofran Odt) 4 mg PO Q6H PRN PRN Reason: Nausea/Vomiting Potassium Chloride (Klor-Con 10) 10 meq PO DAILY [facility] Last Admin: 12/29/17 12:10 Dose: 10 meq Senna (Senokot) 2 tab PO HSPRN PRN PRN Reason: Constipation Sodium Biphosphate/Sodium Phosphate (Fleet Enema) 133 ml MO ONE PRN PRN Reason: Constipation Stop: 12/31/17 13:08 Sodium Chloride (Flush - Normal Saline) 10 ml IVF PRN PRN PRN Reason: Saline Flush Last Admin: 12/29/17 05:56 Dose: 10 ml Trospium (Trospium) 20 mg PO HS [facility] Warfarin Sodium (Coumadin) 5 mg PO MWF [facility]
[2017-12-29] MEDS ORDERED: AZTREONAM PO PRN (15:00)
[2017-12-29] MEDS: Aztreonam 1 GM in Sodium Chloride 0.9% 100 ML IVPB SCH (18:05)
[2017-12-29] MEDS: Gabapentin 100 MG CAP PO PRN (21:41)
--- NOTE | 2017-12-29 22:58 | CON ---
DATE OF CONSULTATION: 12/29/2017 PRIMARY CARE PHYSICIAN: Dr. Marcio Duncan. PRIMARY DUSTER TENDER: Dr. Chelly Rodríguez. REFERRING PHYSICIAN: Dr. Gallo Stokes. REASON FOR CARDIOLOGY CONSULTATION: CHF exacerbation. HISTORY OF PRESENT ILLNESS: Mr. Villa is a very pleasant 87-year-old male with significant history of nonischemic cardiomyopathy with biventricular AICD placement, chronic dizziness, chronic kidney disease stage 4 , history of PE with Coumadin, and chronic localized edema in bilateral lower extremities. The patient had complained of weakness and shortness of breath for 1 week. He also could not sleep on the supine position at night. On 2017, he complained of heaviness to the cross of his chest with worsening of shortness of breath. Due to those symptoms, patient's caregiver called the ambulance and the patient was transferred to [facility] for further evaluation and treatment. Patient was found to have aspiration pneumonia. At this moment, he is stable with the room air and IV antibiotics. He denied palpitation, fluttering in his chest, numbness into left upper extremity, or any nauseated or vomited. The patient has a chronic dizziness, which have not changed much since last hospital admission. Patient also noticed that patient's lower extremities getting more swelling and lately, he is also complaining of insomnia due to shortness of breath at night. Status post biventricular AICD placement was done in 2009. Patient has a history of chronic kidney disease stage 4, which is managed by Dr. Robles. His last echocardiogram was done in 07/2017, which shows EF 40%-45%, moderate-to- severe dilated left atrium, [id number] mitral valve regurgitation, mild aortic valve regurgitation, and moderate tricuspid regurgitation. The patient' s last cardiac catheterizations was done in 05/2014, which shows minimal plaque in the left circumflex and in the proximal right coronary arteries. Patient has been on the Coumadin for history of PE. PAST MEDICAL HISTORY: 1. Hypertension. 2. Hyperlipidemia. 3. Dilated cardiomyopathy. 4. Hypothyroidism. 5. Prostate cancer in 1987. 6. History of pulmonary embolism and chronic kidney disease, stage 4. 7. History of UTI. 8. History of atrial fibrillation. 9. Chronic dizziness and chronic bilateral lower extremity edema. PAST SURGICAL HISTORY: 1. Total prostatectomy. 2. Cataract surgery. 3. Tonsillectomy. 4. Patient has biventricular AICD replacement. SOCIAL HISTORY: Patient lives by himself. He is a and no children. He has a caregiver. He is a former smoker. He quit long time ago. He denies any ETOH or illicit drug abuse. He usually taking care of his ranch with helper. FAMILY HISTORY: His brother has a history of colon cancer. ALLERGIES: He is allergic to CIPROFLOXACIN, IODINE, NITROFURANTOIN, MICROCRYSTALLINE, SULFA. HOME MEDICATIONS: Carvedilol 3.125 mg twice a day, buspirone 10 mg 3 times a day, levothyroxine 88 mcg once a day, Coumadin 4 mg once a day, meclizine 25 mg 3 times a day as needed, gabapentin 100 mg twice a day as needed, omeprazole 20 mg once a day, nitroglycerin 0.5 mg p.r.n., metolazone 5 mg 1 hour prior to taking a.m. Lasix on Wednesday and Wednesday, furosemide 40 mg 1 tablet twice a day, ranitidine 150 mg twice a day, hydrocortisone 10 mg two tablets in a.m. and one tablet in p.m., Mucinex 1 tablet once a day, Symbicort 160 mcg/4.5 two puffs twice a day, potassium 20 mEq one tablet once a day, finasteride 5 mg once a day. REVIEW OF SYSTEMS: Patient's 12-point review of systems mentioned in the HPI, otherwise negative. PHYSICAL EXAMINATION: VITAL SIGNS: Blood pressure 143/62, pulse is 88 and V-pacing, respiratory rate 18, O2 sat 95% on room air, temperature 98.3. GENERAL: Patient is not in acute distress, but very drowsy. HEAD: Normocephalic, atraumatic. EYES: Extraocular muscle movement intact. ENT AND MOUTH: Nasal and oral mucosa moist without lesion. NECK: No JVD. Neck is supple. LUNGS: Clear to auscultation bilaterally but diminished at the bases. No wheezing or rhonchi noted. CARDIOVASCULAR: Normal S1, S2. There are no S3 or S4. The murmur to left side of the mid sternal border. Carotid pulse are present. No thrill or bruits noted. There have 2+ pulses in bilateral dorsal pedis, popliteal, and posterior tibial arteries. ABDOMEN: Very distended, but nontender or mass to palpate. Hyperactive bowel sounds. EXTREMITIES: Have a 3-4+ bilateral pitting edema more to the left side than right side with erythematous and warm to touch to the left lower extremities and the drainage around the left isabel area. SKIN: Warm and dry to touch. Warm to touch to the left lower extremity. NEUROLOGIC: The patient alert, oriented x4, nonfocal. PSYCHIATRIC: Patient has normal affect. IMAGING: Twelve-lead EKG shows V- paced . LABORATORY DATA: WBC 11.3, hemoglobin 10.6, hematocrit 30.9, platelets 111. INR 4.0. Sodium of 135, potassium 3.0, BUN is 76, creatinine 2.89, glucose 117 , magnesium 2.2. AST 50, ALT 19. BNP was 123. TSH 0.2005 and venous Doppler study was done, which showed no DVTs and chest x-ray shows right basilar airspace opacity possibly due to the pneumonia and the patient brain CT scan shows stable. No evidence of acute intracranial process. A chest CT shows no acute pulmonary finding. ASSESSMENT AND PLAN: 1. Acute on chronic combined heart failure. He is stable with Lasix 40 mg IV push daily. Unfortunately, the patient's creatinine level was gradually increased. He is on carvedilol 3.125 mg twice a day. He is not on JENS inhibitor or ARBs due to the history of chronic kidney disease. 2. Generalized weakness. Unchanged since his admission. We would like to continue to monitor. 3. Aspiration pneumonia. He was on several IV antibiotics, which are managed by patient's primary care doctor. 4. Chronic kidney disease stage 4. Regional Director has been following this patient. 5. Generalized edema especially in the bilateral lower extremities. We would like to continue watching the patient fluid and sodium intake and keep the patient's lower extremities is elevated and possible patient needs compression stocking during the daytime and discontinue at night. 6. Biventricular AICD placement in 2009. 7. Chronic dizziness. Patient's condition is stable at this moment. 8. Hypothyroidism. Patient's TSH was 0.2. He is on levothyroxine, which is managed by PCP. 9. Hypokalemia. Patient's potassium level of 3.0 and patient on the potassium replacement. We would like to carefully replace the patient's potassium due to the history of chronic kidney disease. 10. Chronic anemia. Patient's blood count level is stable at this moment, we would like to continue to monitor. 11. History of pulmonary embolism. Patient is on the Coumadin, which is managed by patient's primary care doctor. Thank you very much for Cardiology service to participate in care of this patient. We will follow along with the patient care team and make further recommendation as appropriate. KEEGAN
[2017-12-30 02:33] LABS: Vancomycin, Random 16.5 ug/mL (See Comment)
[2017-12-30] MEDS ORDERED: Vancomycin HCl 1 GM in Premix Bag 1 BAG IVPB SCH (03:00)
[2017-12-30] MEDS: Vancomycin HCl 750 MG in Sodium Chloride 0.9% 250 ML 250 ML IVPB SCH (03:36)
[2017-12-30] MEDS: Aztreonam 1 GM in Sodium Chloride 0.9% 100 ML IVPB SCH ×2 (05:21→17:01)
[2017-12-30] MEDS: Levothyroxine Sodium 88 MCG TAB PO SCH (05:21)
[2017-12-30 06:13] LABS: #Basophils 0.1 thou/uL (0.0-0.2); #Eosinphils 0.1 thou/uL (0.0-0.7); #Lymphocytes 0.7 thou/uL (1.20-3.40); #Monocytes 0.4 thou/uL (0.11-0.59); %Basophils 0.8 % (0.0-1.0); %Eosinophils 0.6 % (0.0-10.0); %Neutrophils 87.6 % (42.0-75.0); Hemoglobin 9.6 g/dL (14.0-18.0); Mean Corpuscular HGB CONC 35.6 g/dL (32.0-36.0); Mean Corpuscular Hemoglobin 34.3 pg (27.0-31.0); Mean Corpuscular Volume 96.4 fL (78.0-98.0); Mean Platelet Volume 8.3 fL (7.4-10.4); Platelet Count 111 thou/uL (130-400); RBC Distribution Width 12.9 % (11.5-14.5); White Blood Cell (WBC) Count 9.2 thou/uL (4.8-10.8)
[2017-12-30 06:20] LABS: Prothrombin Time 22.8 SEC (12.0-14.7)
[2017-12-30 06:21] LABS: ALT (SGPT) 15 U/L (8-55); AST (SGOT) 15 U/L (5-34); Albumin 2.8 g/dL (3.4-4.8); Alkaline Phosphatase 73 U/L (40-150); Anion Gap 18 mmol/L (10-20); BUN (Urea Nitrogen) 76 mg/dL (8.4-25.7); Bilirubin, Total 0.6 mg/dL (0.2-1.2); Calc. Creatinine Clearance 24 mL/min (70-130); Calcium 8.6 mg/dL (7.8-10.44); Carbon Dioxide 27 mmol/L (23-31); Chloride 93 mmol/L (98-107); Estimated GFR-MDRD 18; Globulin 2.8 g/dL (2.4-3.5); Glucose 191 mg/dL (83-110); Potassium 3.5 mmol/L (3.5-5.1); Protein, Total 5.6 g/dL (5.8-8.1); Sodium 134 mmol/L (136-145)
--- NOTE | 2017-12-30 09:08 | PDOC.PN ---
- Subjective Encounter Start Date: 12/30/17 Encounter Start Time: 09:07 CC: Left leg pain Patient seen and examined. - Objective Resuscitation Status: Resuscitation Status FULL:Full Resuscitation MAR Reviewed: Yes Vital Signs & Weight: Vital Signs (12 hours) Temp Pulse Resp BP Pulse Ox 12/30/17 07:42 97.6 F 80 20 120/60 94 L 12/30/17 04:00 97.9 F 82 20 140/65 95 Weight Admit Weight 234 lb Weight 232 lb 12.8 oz I&O: 12/29/17 12/30/17 12/31/17 06:59 06:59 06:59 Intake Total 1072 1670 Output Total 50 50 Balance 1022 1620 Result Diagrams: 01/10/18 14:45 01/10/18 05:41 Phys Exam - Physical Examination Constitutional: NAD HEENT: PERRLA, moist MMs Neck: supple, full ROM Respiratory: no wheezing, no rales, clear to auscultation bilateral Cardiovascular: RRR, no significant murmur Gastrointestinal: positive bowel sounds distention Musculoskeletal: edema present Neurological: moves all 4 limbs Psychiatric: normal affect, A&O x 3 Deviation from normal: some redness noted at the left posterior thigh. Left lower ext leg erythema -: edema at lower extremity bilateral, left more than right. Dx/Plan (1) Aspiration pneumonia Code(s): J69.0 - PNEUMONITIS DUE TO INHALATION OF FOOD AND VOMIT Status: Resolved (2) Leg edema Code(s): R60.0 - LOCALIZED EDEMA Status: Acute Comment: continue diureses. Cardio and nephro workup and management in progress. (3) Acute renal failure superimposed on stage 4 chronic kidney disease Code(s): N17.9 - ACUTE KIDNEY FAILURE, UNSPECIFIED; N18.4 - CHRONIC KIDNEY DISEASE, STAGE 4 (SEVERE) Status: Acute Comment: nephrology workup/ management in progress. 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 (7) General weakness Code(s): R53.1 - WEAKNESS Status: Chronic (8) Hypertension Code(s): I10 - ESSENTIAL (PRIMARY) HYPERTENSION Status: Chronic Qualifiers: Hypertension type: essential hypertension Qualified Code(s): I10 - Essential (primary) hypertension Comment: Stable, continue current BP regimen (9) Hypothyroidism Code(s): E03.9 - HYPOTHYROIDISM, UNSPECIFIED Status: Chronic Qualifiers: Hypothyroidism type: postoperative Qualified Code(s): E89.0 - Postprocedural hypothyroidism Comment: continue current management. (10) Obesity Code(s): E66.9 - OBESITY, UNSPECIFIED Status: Chronic (11) Physical deconditioning Code(s): R53.81 - OTHER MALAISE Status: Chronic Comment: will benefit from rehab (12) PVD (peripheral vascular disease) Code(s): I73.9 - PERIPHERAL VASCULAR DISEASE, UNSPECIFIED Status: Acute Comment: nothing to do. just elevate legs and reposition (13) Cardiorenal syndrome with renal failure Code(s): I13.10 - HYP HRT & CHR KDNY DIS W/O HRT FAIL, W STG 1-4/UNSP CHR KDNY; N19 - UNSPECIFIED KIDNEY FAILURE Status: Acute Comment: cardiac nephro on consult. will continue with current management. - Plan * . Review of Systems - Review of Systems Constitutional: negative: fever, chills, sweats, weakness, malaise, other Eyes: negative: Pain, Vision Change, Conjunctivae Inflammation, Eyelid Inflammation, Redness, Other ENT: negative: Ear Pain, Ear Discharge, Nose Pain, Nose Discharge, Nose Congestion, Mouth Pain, Mouth Swelling, Throat Pain, Throat Swelling, Other Respiratory: negative: Cough, Dry, Shortness of Breath, Hemoptysis, SOB with Excertion, Pleuritic Pain, Sputum, Wheezing Cardiovascular: negative: chest pain, palpitations, orthopnea, paroxysmal nocturnal dyspnea, edema, light headedness, other Gastrointestinal: negative: Nausea, Vomiting, Abdominal Pain, Diarrhea, Constipation, Melena, Hematochezia, Other Genitourinary: negative: Dysuria, Frequency, Incontinence, Hematuria, Retention , Other Musculoskeletal: negative: Neck Pain, Shoulder Pain, Arm Pain, Back Pain, Hand Pain, Leg Pain, Foot Pain, Other Skin: negative: Rash, Lesions, Alirio, Bruising, Other Neurological: negative: Weakness, Numbness, Incoordination, Change in Speech, Confusion, Seizures, Other - Medications/Allergies Allergies/Adverse Reactions: Allergies Allergy/AdvReac Type Severity Reaction Status Date / Time ciprofloxacin HCl Allergy Verified 07/13/17 21:32 [From Cipro] iodine Allergy Verified 07/13/17 21:32 nitrofurantoin Allergy Verified 07/13/17 21:32 macrocrystalline [From Macrodantin] Sulfa (Sulfonamide Allergy Verified 07/13/17 21:32 Antibiotics) Medications: Current Medications Acetaminophen (Tylenol) 650 mg PO Q4H PRN PRN Reason: Headache or Pain Bisacodyl (Dulcolax) 10 mg PO DAILYPRN PRN PRN Reason: Constipation Buspirone HCl (Buspar) 10 mg PO TID [facility] Last Admin: 12/29/17 21:40 Dose: 10 mg Carvedilol (Coreg) 3.125 mg PO BID [facility] Last Admin: 12/29/17 21:40 Dose: 3.125 mg Docusate Sodium (Colace) 100 mg PO BID [facility] Last Admin: 12/29/17 21:40 Dose: 100 mg Famotidine (Pepcid) 20 mg PO DAILY [facility] Last Admin: 12/29/17 12:10 Dose: 20 mg Finasteride (Proscar) 5 mg PO DAILY [facility] Last Admin: 12/29/17 12:10 Dose: 5 mg Furosemide (Lasix) 40 mg SLOW IVP DAILY [facility] Last Admin: 12/29/17 09:45 Dose: 40 mg Gabapentin (Neurontin) 100 mg PO BID PRN PRN Reason: Pain Last Admin: 12/29/17 21:41 Dose: 100 mg Hydrocortisone (Cortef) 30 mg PO BID [facility] Last Admin: 12/29/17 21:40 Dose: 30 mg Aztreonam 1 gm/ Sodium (Chloride) 100 mls @ 100 mls/hr IVPB 0500,1700 [facility] Last Admin: 12/30/17 05:21 Dose: 100 mls Vancomycin HCl 750 mg/ Sodium (Chloride) 250 mls @ 250 mls/hr IVPB Q24HR@0300 [facility] Last Admin: 12/30/17 03:36 Dose: 250 mls Levothyroxine Sodium (Synthroid) 88 mcg PO 0600 [facility] Last Admin: 12/30/17 05:21 Dose: 88 mcg Meclizine HCl (Antivert) 25 mg PO TID PRN PRN Reason: Dizziness Miscellaneous Medication (Pharmacy To Dose) 1 each IVPB PRN PRN PRN Reason: Pharmacy to dose Miscellaneous Medication (Pharmacy To Dose) 1 each PO PRN PRN PRN Reason: FOR ASPIRATION PNA Morphine Sulfate (Morphine) 2 mg SLOW IVP Q4H PRN PRN Reason: Severe Pain (7-10) Last Admin: 12/29/17 05:55 Dose: 2 mg Non-Formulary Medication (Warfarin Sodium [Warfarin Sodium]) 4 mg PO SEEPHYS [facility] Ondansetron HCl (Zofran Odt) 4 mg PO Q6H PRN PRN Reason: Nausea/Vomiting Potassium Chloride (Klor-Con 10) 10 meq PO DAILY [facility] Last Admin: 12/29/17 12:10 Dose: 10 meq Senna (Senokot) 2 tab PO HSPRN PRN PRN Reason: Constipation Sodium Biphosphate/Sodium Phosphate (Fleet Enema) 133 ml HI ONE PRN PRN Reason: Constipation Stop: 12/31/17 13:08 Sodium Chloride (Flush - Normal Saline) 10 ml IVF PRN PRN PRN Reason: Saline Flush Last Admin: 12/29/17 05:56 Dose: 10 ml Trospium (Trospium) 20 mg PO HS [facility] Warfarin Sodium (Coumadin) 5 mg PO [facility]
[2017-12-30] MEDS: Carvedilol 3.125 MG TAB PO SCH ×2 (09:13→21:09)
[2017-12-30] MEDS: busPIRone HCl 10 MG TAB PO SCH ×3 (09:13→21:09)
[2017-12-30] MEDS: Finasteride 5 MG TAB PO SCH (09:13)
[2017-12-30] MEDS: Famotidine 20 MG TAB PO SCH (09:13)
[2017-12-30] MEDS: Docusate 100 MG CAP PO SCH ×2 (09:13→21:09)
[2017-12-30] MEDS: Potassium Chloride 10 MEQ TAB PO SCH (09:14)
[2017-12-30] MEDS: Furosemide 40 MG/4 ML VIAL SLOW IVP SCH (09:14)
[2017-12-30] MEDS: Hydrocortisone 10 mg Tablet PO SCH ×2 (09:14→21:09)
--- NOTE | 2017-12-30 09:15 | ADD-CON ---
ADDENDUM DATE OF CONSULTATION: 12/29/2017 INDICATION FOR CONSULTATION: An 87-year-old gentleman with CHF exacerbation and lower extremity ene a with cellulitis. Please refer the notes already dictated by my nurse practitioner, Mandie Santos is a very unfortunate 87-year-old gentleman who has been followed by me for many many years has a history of nonischemic cardiomyopathy. He has undergone a recent catheterization within the last 1- 2 years, was also found to have no evidence of significant coronary artery disease. His ejection fra ction as much as 18 or 19 years ago was severely compromised. He underwent AICD implant, has been fo llowed on a routine basis by the rental salesperson as well as by my office, and over time, his ejec tion fraction did improve up to 50% to 55%, but then this last echocardiogram showed ejection fractio n has now decreased back down to 40%-45%. He also has evidence of diastolic dysfunction, as well as moderate mitral valve regurgitation, moderate tricuspid valve regurgitation, and mild aortic valve re gurgitation. He has no stenotic valves. He has had problems over the last year with shortness of br eath and lower extremity edema after he suffered a large pulmonary embolus. He has also had DVTs. Katie merchant has been at home with the help of a blueprint reproducer, but unfortunately has developed increasing shortness of breath and worsening of his lower extremity edema with abdominal bloating, which has been a probl em for quite some time now. He also has some chronic kidney disease and at this time, he has actuall y been able to diurese some. He looks obviously volume overloaded and with the use of diuretics, he has been diuresing some today since being admitted, and says he feels slightly better and appears to be comfortable at this time. He is lying somewhat supine in the bed and legs are elevated, and this does seem to be improving some of his symptoms. He denies any chest pain. His cardiac enzymes are i ndeterminate, but as noted above, he has had minimal if any coronary artery disease on his last cardi ac catheterizations. His renal function has continued to decline. His BUN is 76 with a creatinine o f 2.89; however, he has had some difficulties as noted above in the past, back on 12/27/2017. His cr eatinine at that time was 3.23 and he has had even worse problems with his kidneys previous to that, and he has had renal insufficiency for several years now. He has also been followed by the nephrolog ist. He has been on oral anticoagulation in the past, and there is no indication that he has suffere d further DVTs or PEs at this time. His INR on admission was 3.3 and yesterday it actually increased up to 4. At this time, we will be more than happy to continue to follow the patient with you, but m ost of his issues appeared to be related to his renal insufficiency and he may eventually need to und ergo hemodialysis. PHYSICAL EXAMINATION: GENERAL: Reveals an elderly gentleman, who is in no acute distress. He is alert. He is oriented x3 . VITAL SIGNS: He is afebrile. Heart rate is 89 beats per minute, respiratory rate 20, O2 saturation is 92%, blood pressure at this time is 116/55. HEENT: Shows the head to be normocephalic, atraumatic. I did not hear any significant bruits. CHEST: Has decreased breath sounds bilaterally. He has wheezing in both upper lung best. CARDIOVASCULAR: Reveals a regular rate and rhythm at this time. I do not hear any significant murmu rs, heaves, thrills, or bruits. ABDOMEN: Showed some tympany, is obese, and is somewhat distended. Positive bowel sounds were prese nt however. EXTREMITIES: Showed 2 to 3+ lower extremity edema. He does have some oozing on both lower extremiti es just from the overall edema. Could not palpate pedal pulses. The left lower extremity is more ed ematous than the right and this has actually about 3+ edema. NEUROLOGIC: He appears to be intact. At this time, we will continue his present management for his chronic kidney disease and congestive heart failure. IMPRESSION: 1. Acute congestive heart failure, which is a diastolic as well as a mild systolic failure. We will defer to the window and siding craftsman on how to handle his diuretics as well as the chronic kidney disease. Chastity s will be followed very carefully. 2. History of nonischemic cardiomyopathy. His ejection fraction has not been severely decreased. W e would not expect this to be a significant etiology of his decompensation at this time. We may need to repeat the echocardiogram; however, he has had a recent echocardiogram, which showed ejection fra ction about 40%-45%. I do not see an indication to repeat the echocardiogram at this time, since the re is no indication that he has suffered a myocardial infarction. I would not expect the ejection fr action to have deteriorated much from the echocardiogram approximately 5 months ago. We would be more than happy to continue to follow the patient with you throughout this hospital cours e.
--- NOTE | 2017-12-30 10:39 | PRG ---
Patient Name: BUBBA BUENROSTRO Date of service: 12/30/2017 Subjective: Patient was seen and examined at bedside and overnight events noted. Patient denies any shortness of breath or chest pain or palpitation. No history of nausea or vomiting or diarrhea or fever or chills or cramps. Objective: General: This is an elderly obese, elderly white male in no apparent distress. Vital signs: Temperature 98.7, pulse 80, respiratory rate 18, blood pressure 120/60. HEENT: Atraumatic, normocephalic. Oral mucosa is moist. Neck: Supple. Cardiovascular: S1 S2 heard. Rate and rhythm regular. Respiratory: Clear to auscultation. Gastrointestinal: Abdomen is soft. Musculoskeletal: No tenderness. 2+ edema. Dermatologic: No skin rash. Chronic redness. Neurologic: Alert and awake and oriented X3. No focal neurologic deficits. Moving all the extremit ies. Psychiatric: Mood and affect normal. LABORATORY DATA: Hemoglobin is 9.6, potassium is 3.5, BUN 76, creatinine is 3.21. ASSESSMENT AND PLAN: 1. Acute kidney injury on chronic kidney stage 4 with worsening creatinine. Plan is to hold Lasix f or now. Probably okay to start oral Lasix maybe tomorrow. 2. Hypokalemia, replace. 3. Hypochloremia. 4. Hyponatremia, limit fluid. 5. Anemia. 6. Hypertension. 7. Cardiorenal syndrome. 8. Hypoalbuminemia. Increase protein intake. Prognosis guarded. No acute indication for dialysis. We will hold IV Lasix for today and will carolina murray
--- NOTE | 2017-12-30 14:16 | CON ---
DATE OF CONSULTATION: 12/30/2017 HISTORY OF PRESENT ILLNESS: Mr. Villa is an 87-year-old gentleman who has a multitude of chronic medical problems. I was asked to see him because his left foot feels numb. This is a chronic condit ion. He has chronic congestive heart failure with severe bilateral edema, left greater than right. He has had a DVT scan which is negative. He is anticoagulated with an INR in the 2.5-3.5 range for a n unclear reason. He also has renal insufficiency with his current creatinine being almost 4. The p atient ambulates at home, minimally. He has not walked in a number of days, he says. He has no hist ory of claudication, rest pain or ulcerations. He has no peripheral vascular disease history. He h as no history of carotid artery disease. Currently, he is resting comfortably in bed without complai nt, watching television. PAST MEDICAL HISTORY: 1. Combined systolic and diastolic congestive heart failure. 2. Hypertension. 3. Hyperlipidemia. 4. Morbid obesity. 5. Hypothyroidism. 6. Gastroesophageal reflux disease. 7. Chronic renal insufficiency. ALLERGIES: 1. CIPRO. 2. IODINE. 3. MACRODANTIN. 4. SULFA. CURRENT MEDICATIONS: Noted. PHYSICAL EXAMINATION: GENERAL: This is a morbidly obese gentleman resting in bed. VITAL SIGNS: Height is 5 feet 9, weight is 240 pounds, temperature 97.4, pulse is 80 and regular, bl ood pressure is 126/61. NECK: Supple, without bruit. CHEST: Clear bilaterally. HEART: Rhythm is regular. ABDOMEN: Obese, soft, nontender. EXTREMITIES: He has severe pitting bilateral edema, left greater than right. Once the edema is comp ressed out of his foot you can actually palpate a dorsalis pedis and posterior tibial pulse. His fee t have not been elevated and the patient is sitting more or less at a right-angle in bed. ASSESSMENT AND PLAN: Due to the patient's chronic medical history he more than likely does have rosana pheral vascular disease. The likelihood that this is significant without really any ambulation or pr evious history of symptomatology related to peripheral vascular disease is really minimal. I would e levate his legs and encouraged him to lay at a more obtuse angle rather than so acute with the size o f his abdomen. Venous compression is going to make his edema worse.
[2017-12-30] MEDS: Gabapentin 100 MG CAP PO PRN (15:26)
--- NOTE | 2017-12-30 18:37 | PDOC.CTH ---
<Mandie Prajapati - Last Filed: 12/30/17 18:35> Cardiology Progress Note - Subjective The pt seen and examined. No overnight events. No cardiac complaints. He stated he felt better today. - Objective Vital Signs Temp Pulse Pulse Pulse Resp BP BP 12/30/17 15:21 97.4 F L 80 20 12/30/17 11:19 97.4 F L 80 18 12/30/17 10:50 85 81 126/61 136/62 12/30/17 07:42 97.6 F 80 20 BP Pulse Ox 12/30/17 15:21 134/68 97 12/30/17 11:19 126/61 96 12/30/17 10:50 12/30/17 07:42 120/60 94 L Admit Weight 234 lb Weight 232 lb 12.8 oz 12/29/17 12/30/17 12/31/17 06:59 06:59 06:59 Intake Total 1072 1670 2040 Output Total 50 50 Balance 1022 1620 2040 - Physical Examination General/Neuro: alert & oriented x3 Neck: no JVD present Lungs: other: (very diminished at bases) Heart: RRR Abdomen: soft Extremities: other: (3+ pitting edema,) - Telemetry Telemetry Rhythm: V paced - Labs Result Diagrams: 12/30/17 05:40 12/30/17 05:40 Troponin/CKMB CK-MB (CK-2) 3.3 ng/mL (0-6.6) 12/27/17 22:53 Troponin I 0.103 ng/mL (< 0.028) H 12/28/17 04:58 - Assessment/Plan 1. Acute on chronic combined HF - improving with Lasix, which is on hold today due to elevated Cr level. 2. Non-ischemic CMY with AICD - stable; 3. CKD stage 4 - managed by collections specialist 4. HTN - stable 5. Bilat Edema - 6. Hypothyroidism - 7. Dizziness - stable MAR reviewed * Echo in 07/2017 showed EF 40-45%, mod LA dilation, mild-mod MR, mild AR, and mild TR. Review of Systems - Review of Systems Constitutional: reports: weakness EENTM: reports: no symptoms reported Respiratory: reports: shortness of breath Cardiac (ROS): reports: no symptoms reported ABD/GI: reports: no symptoms reported : reports: no symptoms reported <Dennis Rodríguez - Last Filed: 12/30/17 19:37> Cardiology Progress Note - Objective Vital Signs Temp Pulse Pulse Pulse Resp BP BP 12/30/17 15:21 97.4 F L 80 20 12/30/17 11:19 97.4 F L 80 18 12/30/17 10:50 85 81 126/61 136/62 12/30/17 07:42 97.6 F 80 20 BP Pulse Ox 12/30/17 15:21 134/68 97 12/30/17 11:19 126/61 96 12/30/17 10:50 12/30/17 07:42 120/60 94 L Admit Weight 234 lb Weight 232 lb 12.8 oz 12/29/17 12/30/17 12/31/17 06:59 06:59 06:59 Intake Total 1072 1670 2040 Output Total 50 50 Balance 1022 1620 2040 - Labs Result Diagrams: 12/30/17 05:40 12/30/17 05:40 Troponin/CKMB CK-MB (CK-2) 3.3 ng/mL (0-6.6) 12/27/17 22:53 Troponin I 0.103 ng/mL (< 0.028) H 12/28/17 04:58 - Assessment/Plan Pt. seen and eval. by me. i agree with the A/P by the TABLE LEVER OPERATOR. His renal function continues to deteriorate and the edema is only minimally improved. His prognosis is poor.
[2017-12-30] MEDS: TROSPIUM 20 MG TABLET PO SCH (21:09)
--- NOTE | 2017-12-31 02:30 | CON ---
DATE OF CONSULTATION: 12/30/2017 REASON FOR CONSULTATION: Abdominal swelling. HISTORY OF PRESENT ILLNESS: Mr. Villa is an 87-year-old, who was admitted to the hospital on the . On 12/30/2017, I was asked to see him for abdominal distention. The patient reports that his abdomen is no more or less distended than it has been for many years. He denies nausea or vomiting. He denies any bleeding. He denies any abdominal pain. He states that he has had a slow constipatio n since he has been here. It appears that he was admitted for some left leg pain and was subsequentl y diagnosed with cellulitis. He notes the swelling in his legs is up and down and has been a little bit worse now. He does not feel his abdomen is really different than it has been in the past. He st ates it has really been swollen ever since he had a surgery on his prostate many years ago. He denie s any shortness of breath. He denies any history of liver disease. He is not sure about kidney dise ase or what his ejection fraction is. He denies a history of cirrhosis. PAST MEDICAL HISTORY: Urinary tract infections; kidney stones; renal colic in the past; chronic kidn ey disease, stage 3; panhypopituitarism, surgical; cardiomyopathy, unknown ejection fraction; history of prior pulmonary embolus; history of cardiac disease; arrhythmias and atrial fibrillation. PAST SURGICAL HISTORY: He had a brain tumor removed and previous tonsillectomy. He has a pacemaker. He may have an AICD, he is not sure; I can tell from the record here in the hospital, apparently he has a urinary sphincter button in place, he pushes and it help him urinate. SOCIAL HISTORY: He used to smoke, does not now. Does not drink alcohol, does not use drugs. Lives at home alone. ALLERGIES: CIPRO, IODINE, MACRODANTIN, SULFA. HOME MEDICATIONS: Carvedilol, BuSpar, gabapentin, metolazone, levothyroxine, [place], warfarin, raniti dine, meclizine, torsemide, furosemide. PRESENT MEDICATIONS HERE: BuSpar, Coreg, Colace, Pepcid, Proscar, Neurontin, Cortef, Synthroid , Antivert, warfarin, Zofran, vancomycin. PHYSICAL EXAMINATION: GENERAL: The patient is resting comfortably in bed. He is in no distress. NECK: He has no overt JVD, but there is a very large neck and it is really hard to tell. VITAL SIGNS: Temperature is 97.4, pulse 80, blood pressure 134/68. LUNGS: Clear. HEART: Regular rate and rhythm. ABDOMEN: Protuberant and soft, is tympanitic. There are bowel sounds. There is no rebound. There is no guarding. EXTREMITIES: No clubbing, cyanosis and severe edema. He has got some erythema in the left leg, whic h is outlined, but seems to be getting better. LABORATORY STUDIES: White count was 6.4 on admission and was up to 11.3 on 12/29/2017, 9.2 today; he moglobin 9.6; platelet count is 111. INR is 2. This was as high as 4. Sodium 134, potassium 3.5, c hloride 93, BUN and creatinine are 73 and 3.12, albumin 2.8, protein is 5.6. Urinalysis is negative for protein or blood. ASSESSMENT: 1. This is an 87-year-old man with heart failure, cardiomyopathy who has a kidney disease stage 5 wi th worsening renal function. 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 2. With regard to his abdominal distention, he may have ascites. He may have some ileus, but the pa tiejose states he is not any worse than usual. He has some constipation. RECOMMENDATIONS: 1. Two view abdomen plain films. 2. Fluid management per Nephrology and Cardiology. 3. May consider involving his editor at large in his care as he seems to have significant heart failure with impairment of end organ damage to the kidneys. 4. If the abdominal x-rays are negative, we can get ultrasound to see if he has ascites, but this is probably related to his heart disease. 5. For constipation, he can take a laxative. I told his nurse, that he can take one of the p.r.n. l axatives ordered.
[2017-12-31] MEDS: Vancomycin HCl 750 MG in Sodium Chloride 0.9% 250 ML 250 ML IVPB SCH (02:47)
[2017-12-31] MEDS: Levothyroxine Sodium 88 MCG TAB PO SCH (04:46)
[2017-12-31] MEDS: Aztreonam 1 GM in Sodium Chloride 0.9% 100 ML IVPB SCH (04:46)
[2017-12-31 05:49] LABS: INR-International Normal Ratio 1.7; Prothrombin Time 19.9 SEC (12.0-14.7)
[2017-12-31 05:53] LABS: Anion Gap 13 mmol/L (10-20); BUN (Urea Nitrogen) 74 mg/dL (8.4-25.7); Calc. Creatinine Clearance 25 mL/min (70-130); Calcium 8.8 mg/dL (7.8-10.44); Carbon Dioxide 31 mmol/L (23-31); Chloride 95 mmol/L (98-107); Estimated GFR-MDRD 19; Glucose 175 mg/dL (83-110); Potassium 3.1 mmol/L (3.5-5.1); Sodium 136 mmol/L (136-145)
[2017-12-31] MEDS ORDERED: Torsemide 20 MG TAB PO SCH (09:00)
--- NOTE | 2017-12-31 09:32 | RAD ---
ABDOMEN 2 VIEWS: History Abdominal distention. COMPARISON: None. FINDINGS: There are numerous surgical clips along the pelvic sidewalls bilaterally. Contrast is seen within th e transverse and descending colon. Multiple diverticula. No dilated air-filled loops of large or small bowel. On the upright view, the hemidiaphragm is not i nterrogated; therefore, evaluation for free air is limited. IMPRESSION: No evidence for bowel obstruction. POS: JANNET
[2017-12-31] MEDS: Hydrocortisone 10 mg Tablet PO SCH ×2 (09:33→20:03)
[2017-12-31] MEDS: Docusate 100 MG CAP PO SCH ×2 (09:35→20:03)
[2017-12-31] MEDS: Torsemide 20 MG TAB PO SCH (09:35)
[2017-12-31] MEDS: busPIRone HCl 10 MG TAB PO SCH ×3 (09:35→20:03)
[2017-12-31] MEDS: Carvedilol 3.125 MG TAB PO SCH ×2 (09:35→20:02)
[2017-12-31] MEDS: Famotidine 20 MG TAB PO SCH (09:35)
[2017-12-31] MEDS: Potassium Chloride 10 MEQ TAB PO SCH (09:35)
[2017-12-31] MEDS: Finasteride 5 MG TAB PO SCH (09:35)
--- NOTE | 2017-12-31 12:59 | PDOC.CTH ---
<Mandie Prajapati - Last Filed: 12/31/17 12:55> Cardiology Progress Note - Subjective The pt seen and examined. No overnight events. No cardiac complaints. He is up to chair. Per Caregiver, he finishes big ketchup in 1wk and eats bad in weekend. - Objective Vital Signs Temp Pulse Resp BP BP Pulse Ox 12/31/17 08:00 97.8 F 80 16 168/77 H 96 12/31/17 03:39 97.5 F L 84 20 140/65 98 Admit Weight 234 lb Weight 234 lb 12.8 oz 12/30/17 12/31/17 01/01/18 06:59 06:59 06:59 Intake Total 1670 2630 Output Total 50 1250 Balance 1620 1380 - Physical Examination General/Neuro: alert & oriented x3 Neck: no JVD present Lungs: other: (diminished at bases) Heart: RRR Abdomen: soft Extremities: other: (4 + pitting BLE edema) - Telemetry Telemetry Rhythm: V paced - Labs Result Diagrams: 12/30/17 05:40 12/31/17 05:20 Troponin/CKMB CK-MB (CK-2) 3.3 ng/mL (0-6.6) 12/27/17 22:53 Troponin I 0.103 ng/mL (< 0.028) H 12/28/17 04:58 - Assessment/Plan 1. Acute on chronic combined HF - Lasix was d/raj and Torsemide 20mg qd was started from today by bank consultant 2. Non-ischemic CMY with AICD - stable; 3. CKD stage 4 - managed by bank consultant 4. HTN - stable 5. Bilat Edema - worsen when he is in chair. 6. Hypothyroidism - On levothyroxin; managed by PCP 7. Dizziness - stable MAR reviewed * Echo in 07/2017 showed EF 40-45%, mod LA dilation, mild-mod MR, mild AR, and mild TR. Review of Systems - Review of Systems Constitutional: reports: weakness EENTM: reports: no symptoms reported Respiratory: reports: no symptoms reported Cardiac (ROS): reports: no symptoms reported ABD/GI: reports: no symptoms reported : reports: no symptoms reported Musculoskeletal: reports: joint pain, muscle stiffness <Dennis Rodríguez - Last Filed: 12/31/17 15:09> Cardiology Progress Note - Objective Vital Signs Temp Pulse Resp BP BP BP Pulse Ox 12/31/17 12:00 96.2 F L 80 14 136/65 12/31/17 08:00 97.8 F 80 16 168/77 H 96 12/31/17 03:39 97.5 F L 84 20 140/65 98 Admit Weight 234 lb Weight 234 lb 12.8 oz 12/30/17 12/31/17 01/01/18 06:59 06:59 06:59 Intake Total 1670 2630 Output Total 50 1250 Balance 1620 1380 - Labs Result Diagrams: 12/30/17 05:40 12/31/17 05:20 Troponin/CKMB CK-MB (CK-2) 3.3 ng/mL (0-6.6) 12/27/17 22:53 Troponin I 0.103 ng/mL (< 0.028) H 12/28/17 04:58 - Assessment/Plan Pt. seen and eval. I agree with the A/P by the VIDEO GAME SCRIPT WRITER. His edema has improved in the lower legs and feet. He has been stated on Torsemide and seems to be tolerating this . Chest with decr. BS in the bases. No wheeze. RRR, LE edema. Distended abdomen, (no significant change from his baseline).
[2017-12-31] MEDS ORDERED: Potassium Chloride 20 MEQ TAB PO PRN (13:02)
--- NOTE | 2017-12-31 13:07 | PDOC.PN ---
- Subjective Encounter Start Date: 12/31/17 Encounter Start Time: 13:05 CC: Leg Lower leg pain. seen and examined. Not in distress - Objective Resuscitation Status: Resuscitation Status FULL:Full Resuscitation MAR Reviewed: Yes Vital Signs & Weight: Vital Signs (12 hours) Temp Pulse Resp BP BP Pulse Ox 12/31/17 08:00 97.8 F 80 16 168/77 H 96 12/31/17 03:39 97.5 F L 84 20 140/65 98 Weight Admit Weight 234 lb Weight 234 lb 12.8 oz I&O: 12/30/17 12/31/17 01/01/18 06:59 06:59 06:59 Intake Total 1670 2630 Output Total 50 1250 Balance 1620 1380 Result Diagrams: 01/10/18 14:45 01/10/18 05:41 Phys Exam - Physical Examination Constitutional: NAD HEENT: PERRLA Neck: no nodes, no JVD, supple, full ROM Respiratory: no rales, no rhonchi, wheezing present Cardiovascular: RRR Gastrointestinal: soft, non-tender Musculoskeletal: edema present Neurological: non-focal, moves all 4 limbs Psychiatric: A&O x 3 Deviation from normal: left leg erythema improving. Bilater lower edema Dx/Plan (1) Aspiration pneumonia Code(s): J69.0 - PNEUMONITIS DUE TO INHALATION OF FOOD AND VOMIT Status: Resolved (2) Leg edema Code(s): R60.0 - LOCALIZED EDEMA Status: Acute Comment: continue diureses. Cardio and nephro workup and management in progress. (3) Acute renal failure superimposed on stage 4 chronic kidney disease Code(s): N17.9 - ACUTE KIDNEY FAILURE, UNSPECIFIED; N18.4 - CHRONIC KIDNEY DISEASE, STAGE 4 (SEVERE) Status: Acute Comment: nephrology workup/ management in progress. 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 (7) General weakness Code(s): R53.1 - WEAKNESS Status: Chronic (8) Hypertension Code(s): I10 - ESSENTIAL (PRIMARY) HYPERTENSION Status: Chronic Qualifiers: Hypertension type: essential hypertension Qualified Code(s): I10 - Essential (primary) hypertension Comment: Stable, continue current BP regimen (9) Hypothyroidism Code(s): E03.9 - HYPOTHYROIDISM, UNSPECIFIED Status: Chronic Qualifiers: Hypothyroidism type: postoperative Qualified Code(s): E89.0 - Postprocedural hypothyroidism Comment: continue current management. (10) Obesity Code(s): E66.9 - OBESITY, UNSPECIFIED Status: Chronic (11) Physical deconditioning Code(s): R53.81 - OTHER MALAISE Status: Chronic Comment: will benefit from rehab (12) PVD (peripheral vascular disease) Code(s): I73.9 - PERIPHERAL VASCULAR DISEASE, UNSPECIFIED Status: Acute Comment: nothing to do. just elevate legs and reposition (13) Cardiorenal syndrome with renal failure Code(s): I13.10 - HYP HRT & CHR KDNY DIS W/O HRT FAIL, W STG 1-4/UNSP CHR KDNY; N19 - UNSPECIFIED KIDNEY FAILURE Status: Acute Comment: cardiac nephro on consult. will continue with current management. - Plan * . Review of Systems - Review of Systems Constitutional: negative: fever, chills, sweats, weakness, malaise, other Eyes: negative: Pain, Vision Change, Conjunctivae Inflammation, Eyelid Inflammation, Redness, Other ENT: negative: Ear Pain, Ear Discharge, Nose Pain, Nose Discharge, Nose Congestion, Mouth Pain, Mouth Swelling, Throat Pain, Throat Swelling, Other Respiratory: negative: Cough, Dry, Shortness of Breath, Hemoptysis, SOB with Excertion, Pleuritic Pain, Sputum, Wheezing Cardiovascular: negative: chest pain, palpitations, orthopnea, paroxysmal nocturnal dyspnea, edema, light headedness, other Gastrointestinal: negative: Nausea, Vomiting, Abdominal Pain, Diarrhea, Constipation, Melena, Hematochezia, Other Genitourinary: negative: Dysuria, Frequency, Incontinence, Hematuria, Retention , Other Musculoskeletal: negative: Neck Pain, Shoulder Pain, Arm Pain, Back Pain, Hand Pain, Leg Pain, Foot Pain, Other Skin: negative: Rash, Lesions, Alirio, Bruising, Other Neurological: negative: Weakness, Numbness, Incoordination, Change in Speech, Confusion, Seizures, Other - Medications/Allergies Allergies/Adverse Reactions: Allergies Allergy/AdvReac Type Severity Reaction Status Date / Time ciprofloxacin HCl Allergy Verified 07/13/17 21:32 [From Cipro] iodine Allergy Verified 07/13/17 21:32 nitrofurantoin Allergy Verified 07/13/17 21:32 macrocrystalline [From Macrodantin] Sulfa (Sulfonamide Allergy Verified 07/13/17 21:32 Antibiotics) Medications: Current Medications Acetaminophen (Tylenol) 650 mg PO Q4H PRN PRN Reason: Headache or Pain Bisacodyl (Dulcolax) 10 mg PO DAILYPRN PRN PRN Reason: Constipation Buspirone HCl (Buspar) 10 mg PO TID [facility] Last Admin: 12/31/17 09:35 Dose: 10 mg Carvedilol (Coreg) 3.125 mg PO BID [facility] Last Admin: 12/31/17 09:35 Dose: 3.125 mg Docusate Sodium (Colace) 100 mg PO BID [facility] Last Admin: 12/31/17 09:35 Dose: 100 mg Famotidine (Pepcid) 20 mg PO DAILY [facility] Last Admin: 12/31/17 09:35 Dose: 20 mg Finasteride (Proscar) 5 mg PO DAILY [facility] Last Admin: 12/31/17 09:35 Dose: 5 mg Gabapentin (Neurontin) 100 mg PO BID PRN PRN Reason: Pain Last Admin: 12/30/17 15:26 Dose: 100 mg Hydrocortisone (Cortef) 30 mg PO BID [facility] Last Admin: 12/31/17 09:33 Dose: 30 mg Vancomycin HCl 750 mg/ Sodium (Chloride) 250 mls @ 250 mls/hr IVPB Q24HR@0300 [facility] Last Admin: 12/31/17 02:47 Dose: 250 mls Levothyroxine Sodium (Synthroid) 88 mcg PO 0600 [facility] Last Admin: 12/31/17 04:46 Dose: 88 mcg Meclizine HCl (Antivert) 25 mg PO TID PRN PRN Reason: Dizziness Miscellaneous Medication (Pharmacy To Dose) 1 each IVPB PRN PRN PRN Reason: Pharmacy to dose Miscellaneous Medication (Pharmacy To Dose) 1 each PO PRN PRN PRN Reason: FOR ASPIRATION PNA Morphine Sulfate (Morphine) 2 mg SLOW IVP Q4H PRN PRN Reason: Severe Pain (7-10) Last Admin: 12/29/17 05:55 Dose: 2 mg Ondansetron HCl (Zofran Odt) 4 mg PO Q6H PRN PRN Reason: Nausea/Vomiting Polyethylene Glycol (Miralax) 17 gm PO 1744 [facility] Stop: 12/31/17 19:44 Potassium Chloride (Klor-Con 10) 10 meq PO DAILY [facility] Last Admin: 12/31/17 09:35 Dose: 10 meq Potassium Chloride (K-Dur) 40 meq PO PRN PRN PRN Reason: Cardiac Arrythmia Senna (Senokot) 2 tab PO HSPRN PRN PRN Reason: Constipation Last Admin: 12/30/17 18:09 Dose: 2 tab Sodium Biphosphate/Sodium Phosphate (Fleet Enema) 133 ml SD ONE PRN PRN Reason: Constipation Stop: 12/31/17 13:08 Sodium Chloride (Flush - Normal Saline) 10 ml IVF PRN PRN PRN Reason: Saline Flush Last Admin: 12/31/17 09:36 Dose: 10 ml Torsemide (Demadex) 20 mg PO DAILY [facility] Last Admin: 12/31/17 09:35 Dose: 20 mg Trospium (Trospium) 20 mg PO HS [facility] Last Admin: 12/30/17 21:09 Dose: 20 mg Warfarin Sodium (Coumadin) 5 mg PO MWF@1700 [facility] Warfarin Sodium (Coumadin) 4 mg PO SuTuThSa@1700 [facility]
[2017-12-31] MEDS ORDERED: Warfarin Sodium 5 MG TAB PO SCH (17:00)
[2017-12-31] MEDS ORDERED: Polyethylene Glycol 3350 17 GM Packet PO SCH (17:44)
[2017-12-31] MEDS ORDERED: Potassium Chloride 20 MEQ TAB PO SCH (18:00)
--- NOTE | 2017-12-31 18:57 | PRG ---
DATE OF SERVICE: 12/31/2017 SUBJECTIVE: Patient was seen and examined at bedside and overnight events noted. Patient denies any shortness of breath or chest pain or palpitation. No history of nausea or vomiting or diarrhea or f ever or chills or cramps. OBJECTIVE: GENERAL: This is an obese male, in no apparent distress. VITAL SIGNS: Temperature 96.2, pulse 80, respiratory rate , blood pressure 136/65. HEENT: Atraumatic, normocephalic, oral mucosa is moist. NECK: Supple. CARDIOVASCULAR: S1, S2 heard, rate and rhythm regular. RESPIRATORY: Clear to auscultation. GASTROINTESTINAL: Abdomen is soft. MUSCULOSKELETAL: No tenderness, no edema. DERMATOLOGIC: No skin rash. NEUROLOGIC: Alert and awake and oriented x3. No focal neurologic deficits. Moving all the extremit ies. PSYCHIATRIC: Mood and affect normal. LABORATORY DATA: Potassium is 3.1, BUN is 74, creatinine is 3.1. ASSESSMENT AND PLAN: 1. Acute kidney injury on chronic kidney disease, stage 4. Renal function with slight improvement. He remains edematous. We will restart on low dose of torsemide. His edema seems to be more circula tion issues. Not much edema on upper extremities. 2. Hypokalemia, replace. 3. Cardiorenal syndrome. 4. Hypertension. 5. Hypoalbuminemia. 6. Anemia. We will check iron studies. Replace potassium, check iron studies and we will follow. We will start on low dose of torsemide. I f worsen, the patient may need renal replacement in the near future. We will follow.
[2017-12-31] MEDS: TROSPIUM 20 MG TABLET PO SCH (20:02)
[2017-12-31 22:34] LABS: Creatinine, Urine 39.76 mg/dL (63-166); Protein, Urine Random Quant Less than 10 mg/dL (1-14)
--- NOTE | 2018-01-01 01:28 | PRG ---
DATE OF SERVICE: 12/31/2017 SUBJECTIVE: Mr. Villa feels fine. He states his abdomen is not bothering him. He did have a bow el movement today. He has eaten dinner, which he likes. OBJECTIVE: VITAL SIGNS: Temperature is 96.2, pulse rate is 80, blood pressure 136/65. ABDOMEN: Protuberant, but soft. It is nontender. Bowel sounds are positive. LABORATORY DATA AND X-RAY FINDINGS: None today except for baseline sodium 136, BUN and creatinine of 74 and 3.12. Two-view abdomen showed some old contrast in his colon, transverse. There was no evid ence of distention, obstruction, or air fluid levels. Interestingly, the last procedure I can see th at he had contrast. It was a modified barium swallow on 11/05/2017. ASSESSMENT: 1. Protuberant abdomen. He may have some anasarca. He may be having some ascites from right heart failure. He shows no signs of intrinsic liver disease. 2. He has got prerenal azotemia and renal dysfunction, which were treated by Nephrology to low cardi ac output. 3. At this time, there are no signs of small bowel or colonic distention. He may be a little bit ob stipated. RECOMMENDATIONS: I have placed him on MiraLax once a day and hold for constipation. 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 If he had a significant amount, they need to take that off. It would be an area to remove fluid , but at this time, I about looking that. I suspect he does have anasarca and some ascites rel ated to his right-sided failure. At this time, we will follow from a distance. If I can be of any f urther assistance in his care, please do not hesitate to contact me.
[2018-01-01 02:45] LABS: INR-International Normal Ratio 1.5; Prothrombin Time 18.5 SEC (12.0-14.7)
[2018-01-01 02:48] LABS: Anion Gap 16 mmol/L (10-20); BUN (Urea Nitrogen) 69 mg/dL (8.4-25.7); Calc. Creatinine Clearance 28 mL/min (70-130); Calcium 9.2 mg/dL (7.8-10.44); Carbon Dioxide 28 mmol/L (23-31); Chloride 95 mmol/L (98-107); Estimated GFR-MDRD 22; Glucose 140 mg/dL (83-110); Potassium 3.4 mmol/L (3.5-5.1); Sodium 136 mmol/L (136-145)
[2018-01-01 02:49] LABS: Iron 65 ug/dL (65-175); Iron Binding Capacity, Total 183 mcg/dL (261-462)
[2018-01-01] MEDS: Vancomycin HCl 750 MG in Sodium Chloride 0.9% 250 ML 250 ML IVPB SCH (03:41)
[2018-01-01] MEDS: Levothyroxine Sodium 88 MCG TAB PO SCH (05:02)
[2018-01-01] MEDS: Finasteride 5 MG TAB PO SCH (08:57)
[2018-01-01] MEDS: Torsemide 20 MG TAB PO SCH (08:57)
[2018-01-01] MEDS: Carvedilol 3.125 MG TAB PO SCH ×2 (08:57→19:51)
[2018-01-01] MEDS: Docusate 100 MG CAP PO SCH ×2 (08:57→19:51)
[2018-01-01] MEDS: busPIRone HCl 10 MG TAB PO SCH ×3 (08:57→19:51)
[2018-01-01] MEDS: Hydrocortisone 10 mg Tablet PO SCH ×2 (08:58→19:51)
[2018-01-01] MEDS: Potassium Chloride 10 MEQ TAB PO SCH (08:58)
[2018-01-01] MEDS: Famotidine 20 MG TAB PO SCH (08:58)
[2018-01-01] MEDS ORDERED: Potassium Chloride 20 MEQ TAB PO SCH (10:00)
--- NOTE | 2018-01-01 12:50 | PRG ---
DATE OF SERVICE: 01/01/2018 SUBJECTIVE: Patient was seen and examined at bedside and overnight events noted. Patient denies any shortness of breath or chest pain or palpitation. No history of nausea or vomiting or diarrhea or f ever or chills or cramps. OBJECTIVE: General: This is an obese male in no apparent distress. Vital Signs: Temperature 97.5, pulse 80, respiratory rate 18, and blood pressure 148/65. HEENT: Atraumatic, normocephalic, Oral mucosa is moist. Neck: Supple. Cardiovascular: S1 and S2 heard. Rate and rhythm regular. Respiratory: Clear to auscultation. Gastrointestinal: Abdomen is soft. Musculoskeletal: No tenderness, No edema. Dermatologic: No skin rash. Neurologic: Alert and awake and oriented x3. No focal neurologic deficits. Moving all the extremit ies. Psychiatric: Mood and affect normal. LABORATORY DATA: Potassium is 3.4, BUN 69, creatinine is 2.7. ASSESSMENT AND PLAN: 1. Acute kidney injury on chronic kidney disease, stage 4. Stable creatinine. 2. Hypokalemia. I will replace. 3. Cardiorenal syndrome. 4. Hypertension. 5. Hypoalbuminemia. 6. Anemia. 7. Continue on oral diuretics and replace potassium.
[2018-01-01] MEDS ORDERED: Warfarin Sodium 2 MG TAB PO SCH (17:00)
--- NOTE | 2018-01-01 17:09 | PDOC.PN ---
- Subjective Encounter Start Date: 01/01/18 Encounter Start Time: 17:08 CC: Left leg pain NAD. patient seen and examined - Objective Resuscitation Status: Resuscitation Status FULL:Full Resuscitation Vital Signs & Weight: Vital Signs (12 hours) Temp Pulse Pulse Pulse Resp BP BP 01/01/18 16:00 97.6 F 79 18 01/01/18 12:00 96.1 F L 83 16 01/01/18 10:17 84 82 159/74 H 146/69 H 01/01/18 08:00 97.4 F L 80 18 BP Pulse Ox 01/01/18 16:00 158/68 H 95 01/01/18 12:00 142/65 H 01/01/18 10:17 01/01/18 08:00 148/65 H 95 Weight Admit Weight 234 lb Weight 232 lb 9.6 oz I&O: 12/31/17 01/01/18 01/02/18 06:59 06:59 06:59 Intake Total 2630 1440 480 Output Total 1250 800 Balance 1380 640 480 Result Diagrams: 01/10/18 14:45 01/10/18 05:41 Phys Exam - Physical Examination Constitutional: NAD HEENT: PERRLA, moist MMs Neck: no JVD, supple Respiratory: no wheezing, no rales, clear to auscultation bilateral Cardiovascular: no significant murmur, no rub Gastrointestinal: soft, non-tender, positive bowel sounds Musculoskeletal: edema present Neurological: normal sensation, moves all 4 limbs Psychiatric: normal affect, A&O x 3 Dx/Plan (1) Leg edema Code(s): R60.0 - LOCALIZED EDEMA Status: Acute Comment: continue diureses. Cardio and nephro workup and management in progress. (2) Acute renal failure superimposed on stage 4 chronic kidney disease Code(s): N17.9 - ACUTE KIDNEY FAILURE, UNSPECIFIED; N18.4 - CHRONIC KIDNEY DISEASE, STAGE 4 (SEVERE) Status: Acute Comment: nephrology workup/ management in progress. 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 (7) General weakness Code(s): R53.1 - WEAKNESS Status: Chronic (8) Hypertension Code(s): I10 - ESSENTIAL (PRIMARY) HYPERTENSION Status: Chronic Qualifiers: Hypertension type: essential hypertension Qualified Code(s): I10 - Essential (primary) hypertension Comment: Stable, continue current BP regimen (9) Hypothyroidism Code(s): E03.9 - HYPOTHYROIDISM, UNSPECIFIED Status: Chronic Qualifiers: Hypothyroidism type: postoperative Qualified Code(s): E89.0 - Postprocedural hypothyroidism Comment: continue current management. (10) Obesity Code(s): E66.9 - OBESITY, UNSPECIFIED Status: Chronic (11) Physical deconditioning Code(s): R53.81 - OTHER MALAISE Status: Chronic Comment: will benefit from rehab (12) PVD (peripheral vascular disease) Code(s): I73.9 - PERIPHERAL VASCULAR DISEASE, UNSPECIFIED Status: Acute Comment: nothing to do. just elevate legs and reposition (13) Cardiorenal syndrome with renal failure Code(s): I13.10 - HYP HRT & CHR KDNY DIS W/O HRT FAIL, W STG 1-4/UNSP CHR KDNY; N19 - UNSPECIFIED KIDNEY FAILURE Status: Acute Comment: cardiac nephro on consult. will continue with current management. - Plan cont current plan of care * . Review of Systems - Review of Systems Constitutional: negative: fever, chills, sweats, weakness, malaise, other Eyes: negative: Pain, Vision Change, Conjunctivae Inflammation, Eyelid Inflammation, Redness, Other ENT: negative: Ear Pain, Ear Discharge, Nose Pain, Nose Discharge, Nose Congestion, Mouth Pain, Mouth Swelling, Throat Pain, Throat Swelling, Other Respiratory: negative: Cough, Dry, Shortness of Breath, Hemoptysis, SOB with Excertion, Pleuritic Pain, Sputum, Wheezing Cardiovascular: negative: chest pain, palpitations, orthopnea, paroxysmal nocturnal dyspnea, edema, light headedness, other Gastrointestinal: negative: Nausea, Vomiting, Abdominal Pain, Diarrhea, Constipation, Melena, Hematochezia, Other Genitourinary: negative: Dysuria, Frequency, Incontinence, Hematuria, Retention , Other Musculoskeletal: negative: Neck Pain, Shoulder Pain, Arm Pain, Back Pain, Hand Pain, Leg Pain, Foot Pain, Other Skin: negative: Rash, Lesions, Alirio, Bruising, Other Neurological: negative: Weakness, Numbness, Incoordination, Change in Speech, Confusion, Seizures, Other - Medications/Allergies Allergies/Adverse Reactions: Allergies Allergy/AdvReac Type Severity Reaction Status Date / Time ciprofloxacin HCl Allergy Verified 07/13/17 21:32 [From Cipro] iodine Allergy Verified 07/13/17 21:32 nitrofurantoin Allergy Verified 07/13/17 21:32 macrocrystalline [From Macrodantin] Sulfa (Sulfonamide Allergy Verified 07/13/17 21:32 Antibiotics) Medications: Current Medications Acetaminophen (Tylenol) 650 mg PO Q4H PRN PRN Reason: Headache or Pain Bisacodyl (Dulcolax) 10 mg PO DAILYPRN PRN PRN Reason: Constipation Buspirone HCl (Buspar) 10 mg PO TID [facility] Last Admin: 01/01/18 15:26 Dose: 10 mg Carvedilol (Coreg) 6.25 mg PO BID [facility] Last Admin: 01/01/18 08:57 Dose: 6.25 mg Docusate Sodium (Colace) 100 mg PO BID [facility] Last Admin: 01/01/18 08:57 Dose: 100 mg Famotidine (Pepcid) 20 mg PO DAILY [facility] Last Admin: 01/01/18 08:58 Dose: 20 mg Finasteride (Proscar) 5 mg PO DAILY [facility] Last Admin: 01/01/18 08:57 Dose: 5 mg Gabapentin (Neurontin) 100 mg PO BID PRN PRN Reason: Pain Last Admin: 12/30/17 15:26 Dose: 100 mg Hydrocortisone (Cortef) 30 mg PO BID [facility] Last Admin: 01/01/18 08:58 Dose: 30 mg Vancomycin HCl 750 mg/ Sodium (Chloride) 250 mls @ 250 mls/hr IVPB Q24HR@0300 [facility] Last Admin: 01/01/18 03:41 Dose: 250 mls Levothyroxine Sodium (Synthroid) 88 mcg PO 0600 [facility] Last Admin: 01/01/18 05:02 Dose: 88 mcg Meclizine HCl (Antivert) 25 mg PO TID PRN PRN Reason: Dizziness Miscellaneous Medication (Pharmacy To Dose) 1 each IVPB PRN PRN PRN Reason: Pharmacy to dose Miscellaneous Medication (Pharmacy To Dose) 1 each PO PRN PRN PRN Reason: FOR ASPIRATION PNA Miscellaneous Medication (Pharmacy To Dose) 1 each PO ONE PRN PRN Reason: Pharmacy to dose Morphine Sulfate (Morphine) 2 mg SLOW IVP Q4H PRN PRN Reason: Severe Pain (7-10) Last Admin: 12/29/17 05:55 Dose: 2 mg Ondansetron HCl (Zofran Odt) 4 mg PO Q6H PRN PRN Reason: Nausea/Vomiting Potassium Chloride (Klor-Con 10) 10 meq PO DAILY [facility] Last Admin: 01/01/18 08:58 Dose: 10 meq Potassium Chloride (K-Dur) 40 meq PO PRN PRN PRN Reason: Cardiac Arrythmia Senna (Senokot) 2 tab PO HSPRN PRN PRN Reason: Constipation Last Admin: 12/30/17 18:09 Dose: 2 tab Sodium Chloride (Flush - Normal Saline) 10 ml IVF PRN PRN PRN Reason: Saline Flush Last Admin: 01/01/18 08:58 Dose: 10 ml Torsemide (Demadex) 20 mg PO DAILY [facility] Last Admin: 01/01/18 08:57 Dose: 20 mg Trospium (Trospium) 20 mg PO HS [facility] Last Admin: 12/31/17 20:02 Dose: 20 mg Warfarin Sodium (Coumadin) 5 mg PO MWF@1700 [facility] Last Admin: 12/31/17 17:49 Dose: 5 mg Warfarin Sodium (Coumadin) 4 mg PO SuTuThSa@1700 [facility]
[2018-01-01] MEDS: TROSPIUM 20 MG TABLET PO SCH (19:51)
[2018-01-02 02:39] LABS: INR-International Normal Ratio 1.5; Prothrombin Time 18.1 SEC (12.0-14.7)
[2018-01-02 02:50] LABS: Vancomycin, Trough 21.8 ug/mL
[2018-01-02 03:14] LABS: Anion Gap 17 mmol/L (10-20); BUN (Urea Nitrogen) 62 mg/dL (8.4-25.7); Calc. Creatinine Clearance 31 mL/min (70-130); Calcium 9.4 mg/dL (7.8-10.44); Carbon Dioxide 26 mmol/L (23-31); Chloride 99 mmol/L (98-107); Estimated GFR-MDRD 25; Glucose 112 mg/dL (83-110); Sodium 138 mmol/L (136-145)
[2018-01-02] MEDS: Vancomycin HCl 750 MG in Sodium Chloride 0.9% 250 ML 250 ML IVPB SCH (03:31)
[2018-01-02] MEDS: Levothyroxine Sodium 88 MCG TAB PO SCH (04:08)
[2018-01-02] MEDS: Hydrocortisone 10 mg Tablet PO SCH ×2 (09:18→20:29)
[2018-01-02] MEDS: busPIRone HCl 10 MG TAB PO SCH ×3 (09:19→20:29)
[2018-01-02] MEDS: Potassium Chloride 10 MEQ TAB PO SCH (09:19)
[2018-01-02] MEDS: Torsemide 20 MG TAB PO SCH ×2 (09:19→20:29)
[2018-01-02] MEDS: Docusate 100 MG CAP PO SCH ×2 (09:20→20:30)
[2018-01-02] MEDS: Finasteride 5 MG TAB PO SCH (09:20)
[2018-01-02] MEDS: Carvedilol 3.125 MG TAB PO SCH ×2 (09:20→20:29)
[2018-01-02] MEDS: Famotidine 20 MG TAB PO SCH (09:20)
[2018-01-02] MEDS ORDERED: Vancomycin HCl 1.5 GM in Sodium Chloride 0.9% 250 ML 300 ML IVPB SCH (10:00)
--- NOTE | 2018-01-02 12:25 | PRG ---
DATE OF SERVICE: 01/02/2018 SUBJECTIVE: Patient was seen and examined at bedside and overnight events noted. Patient denies any shortness of breath or chest pain or palpitation. No history of nausea or vomitin g or diarrhea or fever or chills or cramps. OBJECTIVE: GENERAL: This is an obese white male, in no apparent distress. VITAL SIGNS: Temperature 98.1, pulse 82, respiratory rate 18, blood pressure 143/69. HEENT: Atraumatic, normocephalic. Oral mucosa is moist. NECK: Supple. CARDIOVASCULAR: S1 and S2 heard. Rate and rhythm regular. RESPIRATORY: Clear to auscultation. GASTROINTESTINAL: Abdomen is soft. MUSCULOSKELETAL: 2+ edema. DERMATOLOGIC: No skin rash. NEUROLOGIC: Alert and awake and oriented x3. No focal neurologic deficits. Moving all the extremit ies. PSYCHIATRIC: Mood and affect normal. LABORATORY DATA: Potassium is 4.0, BUN 62, creatinine is 2.4. ASSESSMENT AND PLAN: 1. Acute kidney injury on chronic kidney stage IV. Renal function is getting better, but remains ed ematous. 2. Cardiorenal syndrome with edema. We will increase the torsemide. If renal function get worse, t he patient might need renal replacement therapy including hemodialysis. I had detailed discussion wi th the patient and family and agreeable. 3. Hypokalemia, replaced. 4. Hypertension, stable. 5. Hypoalbuminemia. 6. Anemia. Plan is to increase the diuretics. If renal function get worse, might need dialysis and family is ag reeable. We will follow.
--- NOTE | 2018-01-02 15:38 | PDOC.PN ---
- Subjective Encounter Start Date: 01/02/18 Encounter Start Time: 10:50 Patient seen and examined for CHF. No new complaints. Sitting on chair. No overnight events - Objective Resuscitation Status: Resuscitation Status FULL:Full Resuscitation MAR Reviewed: Yes Vital Signs & Weight: Vital Signs (12 hours) Temp Pulse Resp BP BP Pulse Ox 01/02/18 12:00 97.2 F L 80 16 145/70 H 97 01/02/18 08:00 96.8 F L 83 18 142/66 H 98 01/02/18 04:00 98.1 F 83 20 143/69 H 98 Weight Admit Weight 234 lb Weight 237 lb 1.6 oz I&O: 01/01/18 01/02/18 01/03/18 06:59 06:59 06:59 Intake Total 1440 1570 480 Output Total 800 200 Balance 640 1370 480 Result Diagrams: 12/30/17 05:40 01/02/18 02:20 EKG Reviewed by me: Yes (Tele Paced) Phys Exam - Physical Examination Constitutional: NAD Respiratory: no wheezing Scat rhonchi with bibasilar rales Cardiovascular: RRR, no rub Gastrointestinal: soft, non-tender, positive bowel sounds Musculoskeletal: edema present Neurological: moves all 4 limbs Dx/Plan - Plan PT/OT IMPRESSION: 1. Acute on chronic systolic and diastolic HF 2. L LE Cellulitis 3. 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 Chr Afib with subtherapeutic INR 5. Physical deconditioning / BPH/ Hypothyroidism/ Elevated troponins due to CHF/ thrombocytopenia/Obesity BMI 35 6. Other issues per previous notes PLAN: Change Warfarin to 5 mg daily (INR 1.5 today) Change Vancomycin to PO Atbx (Keflex with Doxy) Cont Torsemide AM labs INR in AM SNF/Rehab eval per family req Add fluid rest Change diet to low vit K Add OT Eval Cont other meds as below Review of Systems - Review of Systems Constitutional: negative: fever, chills, sweats, weakness, malaise, other Cardiovascular: edema. negative: chest pain, palpitations, orthopnea, paroxysmal nocturnal dyspnea, light headedness, other - Medications/Allergies Allergies/Adverse Reactions: Allergies Allergy/AdvReac Type Severity Reaction Status Date / Time ciprofloxacin HCl Allergy Verified 07/13/17 21:32 [From Cipro] iodine Allergy Verified 07/13/17 21:32 nitrofurantoin Allergy Verified 07/13/17 21:32 macrocrystalline [From Macrodantin] Sulfa (Sulfonamide Allergy Verified 07/13/17 21:32 Antibiotics) Medications: Current Medications Acetaminophen (Tylenol) 650 mg PO Q4H PRN PRN Reason: Headache or Pain Bisacodyl (Dulcolax) 10 mg PO DAILYPRN PRN PRN Reason: Constipation Buspirone HCl (Buspar) 10 mg PO TID [facility] Last Admin: 01/02/18 14:45 Dose: 10 mg Carvedilol (Coreg) 6.25 mg PO BID [facility] Last Admin: 01/02/18 09:20 Dose: 6.25 mg Docusate Sodium (Colace) 100 mg PO BID [facility] Last Admin: 01/02/18 09:20 Dose: 100 mg Famotidine (Pepcid) 20 mg PO DAILY [facility] Last Admin: 01/02/18 09:20 Dose: 20 mg Finasteride (Proscar) 5 mg PO DAILY [facility] Last Admin: 01/02/18 09:20 Dose: 5 mg Gabapentin (Neurontin) 100 mg PO BID PRN PRN Reason: Pain Last Admin: 12/30/17 15:26 Dose: 100 mg Hydrocortisone (Cortef) 30 mg PO BID [facility] Last Admin: 01/02/18 09:18 Dose: 30 mg Vancomycin HCl 1.5 gm/ Sodium (Chloride) 300 mls @ 200 mls/hr IVPB Q48H [facility] Last Admin: 01/02/18 09:21 Dose: 300 mls Levothyroxine Sodium (Synthroid) 88 mcg PO 0600 [facility] Last Admin: 01/02/18 04:08 Dose: 88 mcg Meclizine HCl (Antivert) 25 mg PO TID PRN PRN Reason: Dizziness Miscellaneous Medication (Pharmacy To Dose) 1 each IVPB PRN PRN PRN Reason: Pharmacy to dose Miscellaneous Medication (Pharmacy To Dose) 1 each PO PRN PRN PRN Reason: FOR ASPIRATION PNA Miscellaneous Medication (Pharmacy To Dose) 1 each PO ONE PRN PRN Reason: Pharmacy to dose Stop: 01/02/18 17:06 Morphine Sulfate (Morphine) 2 mg SLOW IVP Q4H PRN PRN Reason: Severe Pain (7-10) Last Admin: 01/02/18 04:08 Dose: 2 mg Ondansetron HCl (Zofran Odt) 4 mg PO Q6H PRN PRN Reason: Nausea/Vomiting Potassium Chloride (Klor-Con 10) 10 meq PO DAILY [facility] Last Admin: 01/02/18 09:19 Dose: 10 meq Potassium Chloride (K-Dur) 40 meq PO PRN PRN PRN Reason: Cardiac Arrythmia Senna (Senokot) 2 tab PO HSPRN PRN PRN Reason: Constipation Last Admin: 12/30/17 18:09 Dose: 2 tab Sodium Chloride (Flush - Normal Saline) 10 ml IVF PRN PRN PRN Reason: Saline Flush Last Admin: 01/02/18 04:08 Dose: 10 ml Torsemide (Demadex) 20 mg PO BID [facility] Trospium (Trospium) 20 mg PO HS [facility] Last Admin: 01/01/18 19:51 Dose: 20 mg Warfarin Sodium (Coumadin) 5 mg PO MWF@1700 [facility] Last Admin: 12/31/17 17:49 Dose: 5 mg Warfarin Sodium (Coumadin) 4 mg PO SuTuThSa@1700 [facility] Last Admin: 01/01/18 18:09 Dose: 4 mg
[2018-01-02] MEDS ORDERED: Nitroglycerin 0.4 MG TAB (25 Tab Bottle) PO PRN (15:53)
[2018-01-02 16:47] LABS: Troponin I 0.082 ng/mL (< 0.028)
[2018-01-02] MEDS ORDERED: Warfarin Sodium 5 MG TAB PO SCH (17:00)
[2018-01-02] MEDS: Cephalexin 250 MG CAP PO SCH (20:29)
[2018-01-02] MEDS: Doxycycline 100 MG CAP PO SCH (20:29)
[2018-01-02] MEDS: TROSPIUM 20 MG TABLET PO SCH (20:30)
[2018-01-02 20:55] LABS: Troponin I 0.071 ng/mL (< 0.028)
[2018-01-03 05:56] LABS: Hemoglobin 10.3 g/dL (14.0-18.0); Platelet Count 163 thou/uL (130-400)
[2018-01-03 06:04] LABS: INR-International Normal Ratio 1.4; Prothrombin Time 16.9 SEC (12.0-14.7)
[2018-01-03 06:12] LABS: Anion Gap 13 mmol/L (10-20); BUN (Urea Nitrogen) 59 mg/dL (8.4-25.7); Calc. Creatinine Clearance 30 mL/min (70-130); Calcium 9.3 mg/dL (7.8-10.44); Carbon Dioxide 29 mmol/L (23-31); Chloride 98 mmol/L (98-107); Estimated GFR-MDRD 23; Glucose 136 mg/dL (83-110); Potassium 4.2 mmol/L (3.5-5.1); Sodium 136 mmol/L (136-145)
[2018-01-03] MEDS: Levothyroxine Sodium 88 MCG TAB PO SCH (06:23)
[2018-01-03] MEDS: busPIRone HCl 10 MG TAB PO SCH ×3 (09:31→19:28)
[2018-01-03] MEDS: Doxycycline 100 MG CAP PO SCH ×2 (09:32→19:28)
[2018-01-03] MEDS: Carvedilol 3.125 MG TAB PO SCH ×2 (09:32→19:29)
[2018-01-03] MEDS: Docusate 100 MG CAP PO SCH ×2 (09:32→19:29)
[2018-01-03] MEDS: Cyanocobalamin (Vitamin B-12) 1,000 MCG TAB PO SCH (09:32)
[2018-01-03] MEDS: Famotidine 20 MG TAB PO SCH (09:32)
[2018-01-03] MEDS: Cephalexin 250 MG CAP PO SCH ×3 (09:32→19:29)
[2018-01-03] MEDS: Hydrocortisone 10 mg Tablet PO SCH ×2 (09:33→19:28)
[2018-01-03] MEDS: Torsemide 20 MG TAB PO SCH ×2 (09:33→19:28)
[2018-01-03] MEDS: Potassium Chloride 10 MEQ TAB PO SCH (09:33)
[2018-01-03] MEDS: Finasteride 5 MG TAB PO SCH (09:33)
[2018-01-03] MEDS: Folic Acid/Vit B Comp W-C PO SCH (09:33)
--- NOTE | 2018-01-03 11:43 | PDOC.CTH ---
<Mandie Prajapati - Last Filed: 01/03/18 11:41> Cardiology Progress Note - Subjective The pt seen and examined. No overnight events. No cardiac complaints. He complains of fatigue, dizziness, and dry month. JENS wrap to BLE. - Objective Vital Signs Temp Pulse Resp BP BP Pulse Ox 01/03/18 07:24 97.6 F 77 17 138/66 96 01/03/18 05:45 98.0 F 72 18 158/89 H 95 01/03/18 03:37 97.7 F 82 23 H 164/74 H 97 Admit Weight 234 lb Weight 197 lb 6.4 oz 01/02/18 01/03/18 01/04/18 06:59 06:59 06:59 Intake Total 1570 1880 Output Total 200 1300 Balance 1370 580 - Physical Examination General/Neuro: alert & oriented x3 Neck: no JVD present Lungs: CTA Heart: RRR Abdomen: soft Extremities: other: (4+ pitting BLE edema) - Labs Result Diagrams: 01/03/18 05:21 01/03/18 05:21 Troponin/CKMB CK-MB (CK-2) 3.3 ng/mL (0-6.6) 12/27/17 22:53 Troponin I 0.071 ng/mL (< 0.028) H 01/02/18 20:13 - Assessment/Plan 1. 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 Non-ischemic CMY with AICD - stable; 3. CKD stage 4 - slightly worsen today; managed by social work job titles 4. HTN - stable 5. Bilat Edema - worsen when he is in chair. 6. Hypothyroidism - On levothyroxin; managed by PCP 7. Dizziness - stable MAR reviewed * Echo in 07/2017 showed EF 40-45%, mod LA dilation, mild-mod MR, mild AR, and mild TR. Review of Systems - Review of Systems Constitutional: reports: weakness EENTM: reports: no symptoms reported Respiratory: reports: no symptoms reported Cardiac (ROS): reports: no symptoms reported ABD/GI: reports: no symptoms reported, blood streaked bowels <Dennis Rodríguez - Last Filed: 01/03/18 17:43> Cardiology Progress Note - Objective Vital Signs Temp Pulse Pulse Pulse Resp BP BP 01/03/18 16:50 01/03/18 15:33 97.4 F L 82 16 01/03/18 13:41 82 80 154/72 H 167/73 H 01/03/18 11:25 97.5 F L 82 16 01/03/18 08:48 78 82 132/63 150/72 H 01/03/18 07:24 97.6 F 77 17 01/03/18 05:45 98.0 F 72 18 BP BP Pulse Ox Pulse Ox 01/03/18 16:50 145/68 H 01/03/18 15:33 99 01/03/18 13:41 97 01/03/18 11:25 135/62 98 01/03/18 08:48 94 L 01/03/18 07:24 138/66 96 01/03/18 05:45 158/89 H 95 Admit Weight 234 lb Weight 197 lb 6.4 oz 01/02/18 01/03/18 01/04/18 06:59 06:59 06:59 Intake Total 1570 1880 Output Total 200 1300 Balance 1370 580 - Labs Result Diagrams: 01/03/18 05:21 01/03/18 05:21 Troponin/CKMB CK-MB (CK-2) 3.3 ng/mL (0-6.6) 12/27/17 22:53 Troponin I 0.071 ng/mL (< 0.028) H 01/02/18 20:13 - Assessment/Plan Pt. seen and eval. by me. I agree with the A/P by the [employer]. The edema has improved. Chest clear. RRR. Continue present meds.
--- NOTE | 2018-01-03 12:22 | PRG ---
DATE OF SERVICE: 01/03/2018 SUBJECTIVE: This is an 87-year-old gentleman being seen for acute kidney injury. The patient denies any nausea, vomiting or chest pain. PHYSICAL EXAMINATION: GENERAL: Patient is awake, alert. VITAL SIGNS: Afebrile, pulse 82, breathing 16, blood pressure 138/66. HEAD/NECK: Normocephalic. Atraumatic. EYES: EOMI. No deformity. EARS: Clear. No ulcers. NOSE: Intact. No lesions. MOUTH: Clear. No discharge. THROAT: Clear. No exudate. LUNGS: Clear. No crackles. CARDIAC: S1, S2. No rub. ABDOMEN: Benign. BS+. GENITALIA/RECTUM: Shabazz absent. BACK/EXTREMITIES: Edema 0+ Ulcer- NEUROLOGICAL: Alert and motor intact. SKIN: Rash- Bruise- LYMPHATICS: Edema- Ulcer- LABORATORY DATA: Show hemoglobin 10.3, creatinine 2.6. ASSESSMENT AND RECOMMENDATIONS: 1. Acute kidney injury with chronic kidney disease stage 4, hypertension, stable. 2. Anemia, stable. 3. Medications based on glomerular filtration rate, I would avoid doxycycline as that can sometimes interfere with a creatinine. No indication for dialysis at this time.
[2018-01-03] MEDS: Warfarin Sodium 3 MG TAB PO SCH (17:24)
[2018-01-03] MEDS: TROSPIUM 20 MG TABLET PO SCH (19:28)
[2018-01-03] MEDS ORDERED: Eucerin (Mineral Oil/Petrolatum,White) 30 gm Jar TOP PRN (22:01)
[2018-01-03] MEDS ORDERED: Sodium Chloride 0.65% Nasal 44 ML BOT EA NARE PRN (22:01)
--- NOTE | 2018-01-03 22:07 | PDOC.PN ---
- Subjective Encounter Start Date: 01/03/18 Encounter Start Time: 11:00 Patient seen and examined for CHF. No new complaints. No overnight events. Feels gen weak. Dry mouth - Objective Resuscitation Status: Resuscitation Status FULL:Full Resuscitation MAR Reviewed: Yes Vital Signs & Weight: Vital Signs (12 hours) Temp Pulse Pulse Pulse Resp BP BP 01/03/18 16:50 01/03/18 15:33 97.4 F L 82 16 01/03/18 13:41 82 80 154/72 H 167/73 H 01/03/18 11:25 97.5 F L 82 16 BP BP Pulse Ox Pulse Ox 01/03/18 16:50 145/68 H 01/03/18 15:33 99 01/03/18 13:41 97 01/03/18 11:25 135/62 98 Weight Admit Weight 234 lb Weight 197 lb 6.4 oz I&O: 01/02/18 01/03/18 01/04/18 06:59 06:59 06:59 Intake Total 1570 1880 1000 Output Total 200 1300 300 Balance 1370 580 700 Result Diagrams: 01/03/18 05:21 01/03/18 05:21 EKG Reviewed by me: Yes (Tele SR) Phys Exam - Physical Examination Constitutional: NAD Respiratory: no wheezing, no rhonchi Few bibasilar rales Cardiovascular: RRR, no rub Gastrointestinal: soft, non-tender, positive bowel sounds Musculoskeletal: edema present JENS wraps Neurological: moves all 4 limbs Dx/Plan - Plan DVT proph w/SCDs IMPRESSION: 1. Acute on chronic systolic and diastolic HF - improving on Torsemida/Fluid rest 2. L LE Cellulitis - on PO Atbx 3. 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 Chr Afib with subtherapeutic INR 5. Physical deconditioning / BPH/ Hypothyroidism/ Elevated troponins due to CHF/ thrombocytopenia/Obesity BMI 35 6. Other issues per previous notes PLAN: Change Warfarin to 6 mg daily (INR 1.4 today) Cont Keflex with Doxy Cont Torsemide AM labs INR in AM Cont other meds as below Laboratory Tests 01/03/18 05:21 INR 1.4 Review of Systems - Review of Systems Constitutional: negative: fever, chills, sweats, weakness, malaise, other Gastrointestinal: negative: Nausea, Vomiting, Abdominal Pain, Diarrhea, Constipation, Melena, Hematochezia, Other - Medications/Allergies Allergies/Adverse Reactions: Allergies Allergy/AdvReac Type Severity Reaction Status Date / Time ciprofloxacin HCl Allergy Verified 07/13/17 21:32 [From Cipro] iodine Allergy Verified 07/13/17 21:32 nitrofurantoin Allergy Verified 07/13/17 21:32 macrocrystalline [From Macrodantin] Sulfa (Sulfonamide Allergy Verified 07/13/17 21:32 Antibiotics) Medications: Current Medications Acetaminophen (Tylenol) 650 mg PO Q4H PRN PRN Reason: Headache or Pain Bisacodyl (Dulcolax) 10 mg PO DAILYPRN PRN PRN Reason: Constipation Buspirone HCl (Buspar) 10 mg PO TID [facility] Last Admin: 01/03/18 19:28 Dose: 10 mg Carvedilol (Coreg) 6.25 mg PO BID [facility] Last Admin: 01/03/18 19:29 Dose: 6.25 mg Cephalexin (Keflex) 250 mg PO TID [facility] Last Admin: 01/03/18 19:29 Dose: 250 mg Cyanocobalamin (Vitamin B-12) 1,000 mcg PO DAILY [facility] Last Admin: 01/03/18 09:32 Dose: 1,000 mcg Docusate Sodium (Colace) 100 mg PO BID [facility] Last Admin: 01/03/18 19:29 Dose: 100 mg Doxycycline Hyclate (Vibramycin) 100 mg PO BID [facility] Last Admin: 01/03/18 19:28 Dose: 100 mg Famotidine (Pepcid) 20 mg PO DAILY [facility] Last Admin: 01/03/18 09:32 Dose: 20 mg Finasteride (Proscar) 5 mg PO DAILY [facility] Last Admin: 01/03/18 09:33 Dose: 5 mg Gabapentin (Neurontin) 100 mg PO BID PRN PRN Reason: Pain Last Admin: 12/30/17 15:26 Dose: 100 mg Hydrocortisone (Cortef) 30 mg PO BID [facility] Last Admin: 01/03/18 19:28 Dose: 30 mg Levothyroxine Sodium (Synthroid) 88 mcg PO 0600 [facility] Last Admin: 01/03/18 06:23 Dose: 88 mcg Meclizine HCl (Antivert) 25 mg PO TID PRN PRN Reason: Dizziness Mineral Oil/White Petrolatum (Eucerin Cream) 0 gm TOP BIDPRN PRN PRN Reason: Dry Skin Morphine Sulfate (Morphine) 2 mg SLOW IVP Q6H PRN PRN Reason: Pain Stop: 01/04/18 15:54 Last Admin: 01/02/18 16:04 Dose: 2 mg Nitroglycerin (Nitrostat) 0.4 mg PO Q5MIN PRN PRN Reason: Chest Pain Ondansetron HCl (Zofran Odt) 4 mg PO Q6H PRN PRN Reason: Nausea/Vomiting Potassium Chloride (Klor-Con 10) 10 meq PO DAILY [facility] Last Admin: 01/03/18 09:33 Dose: 10 meq Senna (Senokot) 2 tab PO HSPRN PRN PRN Reason: Constipation Last Admin: 12/30/17 18:09 Dose: 2 tab Sodium Chloride (Flush - Normal Saline) 10 ml IVF PRN PRN PRN Reason: Saline Flush Last Admin: 01/03/18 09:34 Dose: 10 ml Sodium Chloride ([place] Nasal [place] 0.65%) 0 ml EA NARE TID PRN PRN Reason: Nasal Congestion Torsemide (Demadex) 20 mg PO BID [facility] Last Admin: 01/03/18 19:28 Dose: 20 mg Trospium (Trospium) 20 mg PO [facility] Last Admin: 01/03/18 19:28 Dose: 20 mg Vitamin B Complex/Vit C/Folic Acid (Nephro-Mariluz Tablet) 1 tab PO DAILY [facility] Last Admin: 01/03/18 09:33 Dose: 1 tab Warfarin Sodium (Coumadin) 6 mg PO 1700 [facility] Last Admin: 01/03/18 17:24 Dose: 6 mg
[2018-01-04] MEDS: Levothyroxine Sodium 88 MCG TAB PO SCH (03:54)
[2018-01-04 06:31] LABS: Anion Gap 16 mmol/L (10-20); BUN (Urea Nitrogen) 59 mg/dL (8.4-25.7); Calc. Creatinine Clearance 24 mL/min (70-130); Calcium 9.3 mg/dL (7.8-10.44); Carbon Dioxide 27 mmol/L (23-31); Chloride 99 mmol/L (98-107); Estimated GFR-MDRD 23; Glucose 106 mg/dL (83-110); Potassium 3.8 mmol/L (3.5-5.1); Sodium 138 mmol/L (136-145)
[2018-01-04 06:52] LABS: INR-International Normal Ratio 1.4; Prothrombin Time 17.2 SEC (12.0-14.7)
[2018-01-04] MEDS: Polyethylene Glycol 3350 17 GM Packet PO SCH (08:48)
[2018-01-04] MEDS: Senokot S 8.6-50 MG TAB PO SCH ×2 (08:48→19:42)
[2018-01-04] MEDS: Doxycycline 100 MG CAP PO SCH ×2 (08:48→19:42)
[2018-01-04] MEDS: Carvedilol 3.125 MG TAB PO SCH ×2 (08:48→19:42)
[2018-01-04] MEDS: Folic Acid/Vit B Comp W-C PO SCH (08:49)
[2018-01-04] MEDS: Cephalexin 250 MG CAP PO SCH ×3 (08:49→19:42)
[2018-01-04] MEDS: Cyanocobalamin (Vitamin B-12) 1,000 MCG TAB PO SCH (08:49)
[2018-01-04] MEDS: Potassium Chloride 10 MEQ TAB PO SCH (08:49)
[2018-01-04] MEDS: Hydrocortisone 10 mg Tablet PO SCH ×2 (08:49→19:42)
[2018-01-04] MEDS: Famotidine 20 MG TAB PO SCH (08:49)
[2018-01-04] MEDS: busPIRone HCl 10 MG TAB PO SCH ×3 (08:49→19:42)
[2018-01-04] MEDS: Torsemide 20 MG TAB PO SCH (08:50)
[2018-01-04] MEDS: Finasteride 5 MG TAB PO SCH (08:50)
--- NOTE | 2018-01-04 08:57 | PDOC.CTH ---
<Mandie Prajapati - Last Filed: 01/04/18 08:57> Cardiology Progress Note - Subjective The pt seen and examined. No overnight events. No cardiac complaints. He complains of dizziness with movement. - Objective Vital Signs Temp Pulse Resp BP Pulse Ox 01/04/18 07:45 97.8 F 80 20 156/70 H 97 01/04/18 03:08 98.1 F 86 16 162/70 H 97 Admit Weight 234 lb Weight 197 lb 6.4 oz 01/03/18 01/04/18 01/05/18 06:59 06:59 06:59 Intake Total 1880 1600 Output Total 1300 1150 Balance 580 450 - Physical Examination General/Neuro: alert & oriented x3 Neck: no JVD present Lungs: CTA (diminished at bases) Heart: RRR Abdomen: soft Extremities: other: (3-4+ pitting BLE edema; Lt>Rt.) - Labs Result Diagrams: 01/03/18 05:21 01/04/18 05:54 Troponin/CKMB CK-MB (CK-2) 3.3 ng/mL (0-6.6) 12/27/17 22:53 Troponin I 0.071 ng/mL (< 0.028) H 01/02/18 20:13 - Assessment/Plan 1. 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 Non-ischemic CMY with AICD - stable; 3. CKD stage 4 - slightly worsen today; he is still on Doxycycline which may interfere with Cr level; managed by lens mold setter 4. HTN - stable 5. Bilat Edema - worsen when he is up to chair. 6. Hypothyroidism - On levothyroxin; managed by PCP 7. Dizziness - stable 8. 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 Review of Systems - Review of Systems Constitutional: reports: weakness EENTM: reports: no symptoms reported Respiratory: reports: no symptoms reported Cardiac (ROS): reports: no symptoms reported ABD/GI: reports: no symptoms reported : reports: no symptoms reported Musculoskeletal: reports: no symptoms reported Skin: reports: no symptoms reported <Dennis Rodríguez - Last Filed: 01/04/18 10:56> Cardiology Progress Note - Objective Vital Signs Temp Pulse Resp BP Pulse Ox 01/04/18 07:45 97.8 F 80 20 156/70 H 97 01/04/18 03:08 98.1 F 86 16 162/70 H 97 Admit Weight 234 lb Weight 197 lb 6.4 oz 01/03/18 01/04/18 01/05/18 06:59 06:59 06:59 Intake Total 1880 1600 Output Total 1300 1150 Balance 580 450 - Labs Result Diagrams: 01/03/18 05:21 01/04/18 05:54 Troponin/CKMB CK-MB (CK-2) 3.3 ng/mL (0-6.6) 12/27/17 22:53 Troponin I 0.071 ng/mL (< 0.028) H 01/02/18 20:13 - Assessment/Plan Pt. seen and eval. the edema is still present and he remains SOB. He is unable to walk even a few feet due to his dyspnea. His I/O's indicate that he is positive on a daily basis. The BUN:Creat. indicates the renal function is improving but I am suspicious that this is merely dilutional due to increased vol. I will discuss with the lens mold setter about how we can best diurese him or he will undoubtedly return shortly from rehab. The lower legs are wrapped in Silvano -wraps and STD's were supposed to be placed also. He has edema/anasarca up to the Abd. Chest: clear, RRR, #+ edema. The pt. is not ready for transfer to rehab at this time.
--- NOTE | 2018-01-04 10:40 | PRG ---
DATE OF SERVICE: 01/04/2018 SUBJECTIVE: This s an 87-year-old gentleman being seen for acute kidney injury. The patient denies any nausea, vomiting, or chest pain. PHYSICAL EXAMINATION: GENERAL: Patient is awake, alert. VITAL SIGNS: Afebrile, pulse 80, breathing 16, blood pressure 136/70. OBJECTIVE: See above. Awake, alert, in no acute distress. GENERAL APPEARANCE AND MENTAL STATUS: Fair. HEAD/NECK: Normocephalic. Atraumatic. EYES: EOMI. No deformity. EARS: Clear. No ulcers. NOSE: Intact. No lesions. MOUTH: Clear. No discharge. THROAT: Clear. No exudate. LUNGS: Clear. No crackles. CARDIAC: S1, S2. No rub. ABDOMEN: Benign. BS+. GENITALIA/RECTUM: Shabazz absent. BACK/EXTREMITIES: Edema 0+ Ulcer- NEUROLOGICAL: Alert and motor intact. SKIN: Rash- Bruise- LYMPHATICS: Edema- Ulcer- LABORATORY: Hemoglobin 10.3, creatinine 2.6. ASSESSMENT AND RECOMMENDATIONS: 1. Acute kidney with chronic kidney disease, stage 4, stable. 2. Hypertension, stable. 3. Anemia, stable. 4. Medication based on GFR are appropriate.
[2018-01-04] MEDS ORDERED: Metolazone 2.5 MG TAB PO SCH (11:00)
[2018-01-04] MEDS: Torsemide 100 MG TAB PO SCH (12:37)
[2018-01-04] MEDS: Gabapentin 100 MG CAP PO PRN (14:06)
[2018-01-04] MEDS: Warfarin Sodium 3 MG TAB PO SCH (16:04)
[2018-01-04] MEDS: TROSPIUM 20 MG TABLET PO SCH (19:42)
--- NOTE | 2018-01-04 22:53 | PDOC.PN ---
- Subjective Encounter Start Date: 01/04/18 Encounter Start Time: 10:00 Patient seen and examined for CHF. No new complaints. No overnight events - Objective Resuscitation Status: Resuscitation Status FULL:Full Resuscitation MAR Reviewed: Yes Vital Signs & Weight: Vital Signs (12 hours) Temp Pulse Resp BP Pulse Ox 01/04/18 15:42 97.8 F 80 20 156/67 H 98 01/04/18 12:35 97.7 F 82 20 109/59 L 98 Weight Admit Weight 234 lb Weight 197 lb 6.4 oz I&O: 01/03/18 01/04/18 01/05/18 06:59 06:59 06:59 Intake Total 1880 1600 600 Output Total 1300 1150 275 Balance 580 450 325 Result Diagrams: 01/05/18 04:47 01/05/18 04:47 EKG Reviewed by me: Yes (Tele SR) Phys Exam - Physical Examination Constitutional: NAD Respiratory: no wheezing, no rhonchi Bibasilar rales Cardiovascular: RRR, no rub Gastrointestinal: soft, positive bowel sounds Musculoskeletal: edema present Neurological: moves all 4 limbs Dx/Plan - Plan DVT proph w/SCDs IMPRESSION: 1. Acute on chronic systolic and diastolic HF - improving on Torsemida/Fluid rest 2. L LE Cellulitis - on PO Atbx 3. 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 Chr Afib with subtherapeutic INR 5. Physical deconditioning / BPH/ Hypothyroidism/ Elevated troponins due to CHF/ thrombocytopenia/Obesity BMI 35 6. Other issues per previous notes PLAN: Cont Keflex DC Doxycycline Cont Torsemide Cont Warfarin at 6 mg daily (INR still 1.4 today) AM labs PT/INR in AM Cont other meds as below Review of Systems - Medications/Allergies Allergies/Adverse Reactions: Allergies Allergy/AdvReac Type Severity Reaction Status Date / Time ciprofloxacin HCl Allergy Verified 07/13/17 21:32 [From Cipro] iodine Allergy Verified 07/13/17 21:32 nitrofurantoin Allergy Verified 07/13/17 21:32 macrocrystalline [From Macrodantin] Sulfa (Sulfonamide Allergy Verified 07/13/17 21:32 Antibiotics) Medications: Current Medications Acetaminophen (Tylenol) 650 mg PO Q4H PRN PRN Reason: Headache or Pain Bisacodyl (Dulcolax) 10 mg PO DAILYPRN PRN PRN Reason: Constipation- 2nd line Buspirone HCl (Buspar) 10 mg PO TID [facility] Last Admin: 01/04/18 19:42 Dose: 10 mg Carvedilol (Coreg) 6.25 mg PO BID [facility] Last Admin: 01/04/18 19:42 Dose: 6.25 mg Cephalexin (Keflex) 250 mg PO TID [facility] Last Admin: 01/04/18 19:42 Dose: 250 mg Cyanocobalamin (Vitamin B-12) 1,000 mcg PO DAILY [facility] Last Admin: 01/04/18 08:49 Dose: 1,000 mcg Doxycycline Hyclate (Vibramycin) 100 mg PO BID [facility] Last Admin: 01/04/18 19:42 Dose: 100 mg Famotidine (Pepcid) 20 mg PO DAILY [facility] Last Admin: 01/04/18 08:49 Dose: 20 mg Finasteride (Proscar) 5 mg PO DAILY [facility] Last Admin: 01/04/18 08:50 Dose: 5 mg Gabapentin (Neurontin) 100 mg PO BID PRN PRN Reason: Pain Last Admin: 01/04/18 14:06 Dose: 100 mg Hydrocortisone (Cortef) 30 mg PO BID [facility] Last Admin: 01/04/18 19:42 Dose: 30 mg Levothyroxine Sodium (Synthroid) 88 mcg PO 0600 [facility] Last Admin: 01/04/18 03:54 Dose: 88 mcg Meclizine HCl (Antivert) 25 mg PO TID PRN PRN Reason: Dizziness Mineral Oil/White Petrolatum (Eucerin Cream) 0 gm TOP BIDPRN PRN PRN Reason: Dry Skin Nitroglycerin (Nitrostat) 0.4 mg PO Q5MIN PRN PRN Reason: Chest Pain Ondansetron HCl (Zofran Odt) 4 mg PO Q6H PRN PRN Reason: Nausea/Vomiting Polyethylene Glycol (Miralax) 17 gm PO DAILY [facility] Last Admin: 01/04/18 08:48 Dose: 17 gm Potassium Chloride (Klor-Con 10) 10 meq PO DAILY [facility] Last Admin: 01/04/18 08:49 Dose: 10 meq Senna (Senokot) 2 tab PO HSPRN PRN PRN Reason: Constipation- 1ST line Last Admin: 12/30/17 18:09 Dose: 2 tab Senna/Docusate Sodium (Senokot S) 1 tab PO BID [facility] Last Admin: 01/04/18 19:42 Dose: 1 tab Sodium Chloride (Flush - Normal Saline) 10 ml IVF PRN PRN PRN Reason: Saline Flush Last Admin: 01/04/18 03:10 Dose: 10 ml Sodium Chloride ([place] Nasal [place] 0.65%) 0 ml EA NARE TID PRN PRN Reason: Nasal Congestion Torsemide (Demadex) 100 mg PO 1100 [facility] Last Admin: 01/04/18 12:37 Dose: 100 mg Trospium (Trospium) 20 mg PO HS [facility] Last Admin: 01/04/18 19:42 Dose: 20 mg Vitamin B Complex/Vit C/Folic Acid (Nephro-Mariluz Tablet) 1 tab PO DAILY [facility] Last Admin: 01/04/18 08:49 Dose: 1 tab Warfarin Sodium (Coumadin) 6 mg PO 1700 [facility] Last Admin: 01/04/18 16:04 Dose: 6 mg
[2018-01-05] MEDS: traMADol HCl 50 MG TAB PO PRN (01:17)
[2018-01-05] MEDS: Levothyroxine Sodium 88 MCG TAB PO SCH (05:06)
[2018-01-05 05:40] LABS: Hemoglobin 10.8 g/dL (14.0-18.0); Platelet Count 161 thou/uL (130-400)
[2018-01-05 05:44] LABS: INR-International Normal Ratio 1.3; Prothrombin Time 16.4 SEC (12.0-14.7)
[2018-01-05 06:03] LABS: Anion Gap 16 mmol/L (10-20); BUN (Urea Nitrogen) 68 mg/dL (8.4-25.7); Calc. Creatinine Clearance 20 mL/min (70-130); Calcium 9.6 mg/dL (7.8-10.44); Carbon Dioxide 28 mmol/L (23-31); Chloride 97 mmol/L (98-107); Estimated GFR-MDRD 19; Glucose 114 mg/dL (83-110); Magnesium 2.4 mg/dL (1.6-2.6); Potassium 3.7 mmol/L (3.5-5.1); Sodium 137 mmol/L (136-145)
--- NOTE | 2018-01-05 07:10 | PRG ---
DATE OF SERVICE: 01/05/2018 SUBJECTIVE: This is an 87-year-old gentleman being seen for acute kidney injury. The patient denies any nausea, vomiting or chest pain. PHYSICAL EXAMINATION: GENERAL: Patient is awake, alert. VITAL SIGNS: Afebrile, pulse 80, breathing 16, blood pressure 132/68. OBJECTIVE: See above. Awake, alert, in no acute distress. GENERAL APPEARANCE AND MENTAL STATUS: Fair. HEAD/NECK: Normocephalic. Atraumatic. EYES: EOMI. No deformity. EARS: Clear. No ulcers. NOSE: Intact. No lesions. MOUTH: Clear. No discharge. THROAT: Clear. No exudate. LUNGS: Clear. No crackles. CARDIAC: S1, S2. No rub. ABDOMEN: Benign. BS+. GENITALIA/RECTUM: Shabazz absent. BACK/EXTREMITIES: Edema 0+ Ulcer- NEUROLOGICAL: Alert and motor intact. SKIN: Rash- Bruise- LYMPHATICS: Edema- Ulcer- LABORATORY: Hemoglobin 10.8, creatinine 3.01. ASSESSMENT AND RECOMMENDATIONS: 1. Acute kidney injury with chronic kidney disease due to cardiorenal syndrome. We will hold Demade x. 2. Hypertension, stable. 3. Anemia, stable. 4. Medication based on glomerular filtration rate appropriate, no urgent indication for dialysis. W e will follow the patient's renal function closely.
[2018-01-05] MEDS ORDERED: Warfarin Sodium 2.5 MG TAB PO SCH (10:00)
[2018-01-05] MEDS: Polyethylene Glycol 3350 17 GM Packet PO SCH (10:03)
[2018-01-05] MEDS: Potassium Chloride 10 MEQ TAB PO SCH (10:04)
[2018-01-05] MEDS: Hydrocortisone 10 mg Tablet PO SCH ×2 (10:04→21:02)
[2018-01-05] MEDS: Gabapentin 100 MG CAP PO SCH (10:04)
[2018-01-05] MEDS: Carvedilol 3.125 MG TAB PO SCH ×2 (10:05→21:02)
[2018-01-05] MEDS: Famotidine 20 MG TAB PO SCH (10:05)
[2018-01-05] MEDS: Folic Acid/Vit B Comp W-C PO SCH (10:05)
[2018-01-05] MEDS: Finasteride 5 MG TAB PO SCH (10:05)
[2018-01-05] MEDS: Cephalexin 250 MG CAP PO SCH ×3 (10:05→21:02)
[2018-01-05] MEDS: busPIRone HCl 10 MG TAB PO SCH ×3 (10:05→21:02)
[2018-01-05] MEDS: Senokot S 8.6-50 MG TAB PO SCH ×2 (10:05→21:02)
[2018-01-05] MEDS: Cyanocobalamin (Vitamin B-12) 1,000 MCG TAB PO SCH (10:05)
--- NOTE | 2018-01-05 11:30 | PDOC.CTH ---
<Mandie Prajapati - Last Filed: 01/05/18 11:32> Cardiology Progress Note - Subjective The pt seen and examined. No overnight events. Cont. fatigue and weakness. - Objective Vital Signs Temp Pulse Resp BP BP Pulse Ox 01/05/18 07:58 97.5 F L 95 17 120/60 96 01/05/18 04:00 97.6 F 80 20 163/73 H 96 Admit Weight 234 lb Weight 197 lb 6.4 oz 01/04/18 01/05/18 01/06/18 06:59 06:59 06:59 Intake Total 1600 1080 Output Total 1150 1225 Balance 450 -145 - Physical Examination General/Neuro: alert & oriented x3 Neck: no JVD present Lungs: other: (diminished at bases) Heart: RRR Abdomen: soft Extremities: other: (3-4+ BLE edmea) - Telemetry Telemetry Rhythm: AV paced - Labs Result Diagrams: 01/05/18 04:47 01/05/18 04:47 Troponin/CKMB CK-MB (CK-2) 3.3 ng/mL (0-6.6) 12/27/17 22:53 Troponin I 0.071 ng/mL (< 0.028) H 01/02/18 20:13 - Assessment/Plan 1. 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 Torsemide 20mg BID is on hold due to worsening of renal function. Metolazone 2.5mg x1 was given today, which managed by premises technician 2. Non-ischemic CMY with AICD - stable; 3. CKD stage 4 - Torsemide is on hold due to worsening of renal function today; 4. HTN - stable 5. Bilat Edema - worsen when he is up to chair. 6. Hypothyroidism - On levothyroxin; managed by PCP 7. Dizziness - stable 8. 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 Review of Systems - Review of Systems Constitutional: reports: see HPI EENTM: reports: see HPI Respiratory: reports: SOB with excertion Cardiac (ROS): reports: no symptoms reported ABD/GI: reports: no symptoms reported <Dennis Rodríguez - Last Filed: 01/05/18 16:36> Cardiology Progress Note - Objective Vital Signs Temp Pulse Resp BP Pulse Ox 01/05/18 16:08 98.4 F 79 16 142/64 H 97 01/05/18 11:40 98.4 F 86 17 124/62 96 01/05/18 07:58 98.4 F 86 17 120/60 96 Admit Weight 234 lb Weight 197 lb 6.4 oz 01/04/18 01/05/18 01/06/18 06:59 06:59 06:59 Intake Total 1600 1080 Output Total 1150 1225 Balance 450 -145 - Labs Result Diagrams: 01/05/18 04:47 01/05/18 04:47 Troponin/CKMB CK-MB (CK-2) 3.3 ng/mL (0-6.6) 12/27/17 22:53 Troponin I 0.071 ng/mL (< 0.028) H 01/02/18 20:13 - Assessment/Plan Pt. seen and eval. by me. I agree with the A/P by the BAGGAGE AGENT. The edema is slightly improved on the right lower extremity after wrapping and elevation but the left remains edematous. He was able to walk today in the [place] with his walker and assistance. The I/O's are still not very negative. Renal is adjusting his meds.
[2018-01-05] MEDS: Torsemide 100 MG TAB PO SCH (11:42)
[2018-01-05] MEDS: Warfarin Sodium 3 MG TAB PO SCH (16:22)
[2018-01-05] MEDS: TROSPIUM 20 MG TABLET PO SCH (21:02)
--- NOTE | 2018-01-05 21:06 | PDOC.PN ---
- Subjective Encounter Start Date: 01/05/18 Encounter Start Time: 09:50 Patient seen and examined for CHF. SOB with abd distention. LE Edema +. No overnight events - Objective Resuscitation Status: Resuscitation Status FULL:Full Resuscitation MAR Reviewed: Yes Vital Signs & Weight: Vital Signs (12 hours) Temp Pulse Resp BP Pulse Ox 01/05/18 20:56 98.2 F 81 20 157/68 H 96 01/05/18 16:08 98.4 F 79 16 142/64 H 97 01/05/18 11:40 98.4 F 86 17 124/62 96 Weight Admit Weight 234 lb Weight 197 lb 6.4 oz I&O: 01/04/18 01/05/18 01/06/18 06:59 06:59 06:59 Intake Total 1600 1080 625 Output Total 1150 1225 820 Balance 450 -145 -195 Result Diagrams: 01/05/18 04:47 01/06/18 05:16 EKG Reviewed by me: Yes (Tele SR) Phys Exam - Physical Examination Constitutional: NAD Respiratory: no wheezing Bibasilar rales Cardiovascular: RRR, no rub Gastrointestinal: soft, positive bowel sounds Musculoskeletal: edema present Neurological: moves all 4 limbs Dx/Plan - Plan IMPRESSION: 1. Acute on chronic systolic and diastolic HF - improving on Torsemida/Fluid rest 2. L LE Cellulitis - on PO Atbx 3. 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 Chr Afib with subtherapeutic INR 5. Physical deconditioning / BPH/ Hypothyroidism/ Elevated troponins due to CHF/ thrombocytopenia/Obesity BMI 35/ Chronic Adrenal insuff. 6. Other issues per previous notes PLAN: Cont Keflex Warfarin 2.5 mg x 1 extra dose. INR 1.3 today Cont diuresis AM labs PT/INR in AM Cont other meds as below Review of Systems - Review of Systems Constitutional: negative: fever, chills, sweats, weakness, malaise, other Cardiovascular: negative: chest pain, palpitations, orthopnea, paroxysmal nocturnal dyspnea, edema, light headedness, other - Medications/Allergies Allergies/Adverse Reactions: Allergies Allergy/AdvReac Type Severity Reaction Status Date / Time ciprofloxacin HCl Allergy Verified 07/13/17 21:32 [From Cipro] iodine Allergy Verified 07/13/17 21:32 nitrofurantoin Allergy Verified 03/06/18 21:32 macrocrystalline [From Macrodantin] Sulfa (Sulfonamide Allergy Verified 07/13/17 21:32 Antibiotics) Medications: Current Medications Acetaminophen (Tylenol) 650 mg PO Q4H PRN PRN Reason: Headache or Pain Bisacodyl (Dulcolax) 10 mg PO DAILYPRN PRN PRN Reason: Constipation- 2nd line Buspirone HCl (Buspar) 10 mg PO TID [facility] Last Admin: 01/05/18 21:02 Dose: 10 mg Carvedilol (Coreg) 6.25 mg PO BID [facility] Last Admin: 01/05/18 21:02 Dose: 6.25 mg Cephalexin (Keflex) 250 mg PO TID [facility] Last Admin: 01/05/18 21:02 Dose: 250 mg Cyanocobalamin (Vitamin B-12) 1,000 mcg PO DAILY [facility] Last Admin: 01/05/18 10:05 Dose: 1,000 mcg Famotidine (Pepcid) 20 mg PO DAILY [facility] Last Admin: 01/05/18 10:05 Dose: 20 mg Finasteride (Proscar) 5 mg PO DAILY [facility] Last Admin: 01/05/18 10:05 Dose: 5 mg Gabapentin (Neurontin) 100 mg PO BID PRN PRN Reason: Pain Last Admin: 01/04/18 14:06 Dose: 100 mg Gabapentin (Neurontin) 100 mg PO DAILY [facility] Last Admin: 01/05/18 10:04 Dose: 100 mg Hydrocortisone (Cortef) 30 mg PO BID [facility] Last Admin: 01/05/18 21:02 Dose: 30 mg Levothyroxine Sodium (Synthroid) 88 mcg PO 0600 [facility] Last Admin: 01/05/18 05:06 Dose: 88 mcg Meclizine HCl (Antivert) 25 mg PO TID PRN PRN Reason: Dizziness Mineral Oil/White Petrolatum (Eucerin Cream) 0 gm TOP BIDPRN PRN PRN Reason: Dry Skin Nitroglycerin (Nitrostat) 0.4 mg PO Q5MIN PRN PRN Reason: Chest Pain Ondansetron HCl (Zofran Odt) 4 mg PO Q6H PRN PRN Reason: Nausea/Vomiting Polyethylene Glycol (Miralax) 17 gm PO DAILY [facility] Last Admin: 01/05/18 10:03 Dose: 17 gm Potassium Chloride (Klor-Con 10) 10 meq PO DAILY [facility] Last Admin: 01/05/18 10:04 Dose: 10 meq Senna (Senokot) 2 tab PO HSPRN PRN PRN Reason: Constipation- 1ST line Last Admin: 12/30/17 18:09 Dose: 2 tab Senna/Docusate Sodium (Senokot S) 1 tab PO BID [facility] Last Admin: 01/05/18 21:02 Dose: 1 tab Sodium Chloride (Flush - Normal Saline) 10 ml IVF PRN PRN PRN Reason: Saline Flush Last Admin: 01/04/18 03:10 Dose: 10 ml Sodium Chloride ([place] Nasal [place] 0.65%) 0 ml EA NARE TID PRN PRN Reason: Nasal Congestion Torsemide (Demadex) 100 mg PO 1100 [facility] Last Admin: 01/05/18 11:42 Dose: 100 mg Tramadol HCl (Ultram) 50 mg PO Q6H PRN PRN Reason: Moderate Pain (4-6) Last Admin: 01/05/18 01:17 Dose: 50 mg Trospium (Trospium) 20 mg PO HS [facility] Last Admin: 01/05/18 21:02 Dose: 20 mg Vitamin B Complex/Vit C/Folic Acid (Nephro-Mariluz Tablet) 1 tab PO DAILY [facility] Last Admin: 01/05/18 10:05 Dose: 1 tab Warfarin Sodium (Coumadin) 6 mg PO 1700 [facility] Last Admin: 01/05/18 16:22 Dose: 6 mg
[2018-01-06] MEDS: Levothyroxine Sodium 88 MCG TAB PO SCH (05:24)
[2018-01-06 06:03] LABS: INR-International Normal Ratio 1.5; Prothrombin Time 18.2 SEC (12.0-14.7)
[2018-01-06 06:17] LABS: Anion Gap 15 mmol/L (10-20); BUN (Urea Nitrogen) 76 mg/dL (8.4-25.7); Calc. Creatinine Clearance 21 mL/min (70-130); Calcium 9.2 mg/dL (7.8-10.44); Carbon Dioxide 30 mmol/L (23-31); Chloride 96 mmol/L (98-107); Estimated GFR-MDRD 17; Glucose 122 mg/dL (83-110); Sodium 138 mmol/L (136-145)
[2018-01-06] MEDS: busPIRone HCl 10 MG TAB PO SCH ×3 (08:38→20:26)
[2018-01-06] MEDS: Cephalexin 250 MG CAP PO SCH ×3 (08:39→20:26)
[2018-01-06] MEDS: Finasteride 5 MG TAB PO SCH (08:39)
[2018-01-06] MEDS: Carvedilol 3.125 MG TAB PO SCH ×2 (08:39→20:26)
[2018-01-06] MEDS: Famotidine 20 MG TAB PO SCH (08:39)
[2018-01-06] MEDS: Folic Acid/Vit B Comp W-C PO SCH (08:39)
[2018-01-06] MEDS: Gabapentin 100 MG CAP PO SCH (08:39)
[2018-01-06] MEDS: Cyanocobalamin (Vitamin B-12) 1,000 MCG TAB PO SCH (08:39)
[2018-01-06] MEDS: Senokot S 8.6-50 MG TAB PO SCH ×2 (08:40→20:25)
[2018-01-06] MEDS: Hydrocortisone 10 mg Tablet PO SCH ×2 (08:40→20:25)
[2018-01-06] MEDS: Potassium Chloride 10 MEQ TAB PO SCH (08:40)
[2018-01-06] MEDS: Polyethylene Glycol 3350 17 GM Packet PO SCH (08:40)
[2018-01-06] MEDS ORDERED: Potassium Chloride 20 MEQ TAB PO SCH ×3 (09:00→17:00)
--- NOTE | 2018-01-06 09:16 | PDOC.CTH ---
<Mandie Prajapati - Last Filed: 01/06/18 09:17> Cardiology Progress Note - Subjective The pt seen and examined. No overnight events. No cardiac complaints. He is drinking Miralax for not having BM for more than 3 days. He stated he is on NPO for "drawing fluid" from his BLE. However, there is no order for NPO. - Objective Vital Signs Temp Pulse Resp BP BP Pulse Ox 01/06/18 07:50 98 F 80 16 134/60 97 01/06/18 04:00 97.8 F 80 16 131/62 94 L Admit Weight 234 lb Weight 225 lb 9.6 oz 01/05/18 01/06/18 01/07/18 06:59 06:59 06:59 Intake Total 1080 985 Output Total 1225 1670 Balance -145 -685 - Physical Examination General/Neuro: alert & oriented x3 Neck: no JVD present Lungs: CTA (diminished at bases) Heart: RRR Abdomen: soft Extremities: other: (3-4+ pitting BLE edema) - Telemetry Telemetry Rhythm: AV paced - Labs Result Diagrams: 01/05/18 04:47 01/06/18 05:16 Troponin/CKMB CK-MB (CK-2) 3.3 ng/mL (0-6.6) 12/27/17 22:53 Troponin I 0.071 ng/mL (< 0.028) H 01/02/18 20:13 - Assessment/Plan 1. 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 Torsemide was resumed with dose of 100mg qd, which managed by mincing machine operator 2. Non-ischemic CMY with AICD - stable; 3. CKD stage 4 - worsen today; Torsemide was resumed from today; 4. HTN - stable 5. Bilat Edema - worsen when he is up to chair. 6. Hypothyroidism - On levothyroxin; managed by PCP 7. Dizziness - stable 8. Hx of PE - On Coumadin, which managed by PCP ALONSO reviewed * Echo in 07/2017 showed EF 40-45%, mod LA dilation, mild-mod MR, mild AR, and mild TR. Review of Systems - Review of Systems Constitutional: reports: weakness EENTM: reports: no symptoms reported Respiratory: reports: no symptoms reported Cardiac (ROS): reports: no symptoms reported ABD/GI: reports: no symptoms reported <Dennis Rodríguez - Last Filed: 01/06/18 17:32> Cardiology Progress Note - Objective Vital Signs Temp Pulse Pulse Resp BP BP Pulse Ox 01/06/18 15:32 97.9 F 80 16 132/60 97 01/06/18 11:20 97.8 F 84 18 135/62 98 01/06/18 10:20 82 139/71 01/06/18 07:50 98 F 80 16 134/60 97 Admit Weight 234 lb Weight 225 lb 9.6 oz 01/05/18 01/06/18 01/07/18 06:59 06:59 06:59 Intake Total 1080 985 Output Total 1225 1670 Balance -145 -685 - Labs Result Diagrams: 01/05/18 04:47 01/06/18 05:16 Troponin/CKMB CK-MB (CK-2) 3.3 ng/mL (0-6.6) 12/27/17 22:53 Troponin I 0.071 ng/mL (< 0.028) H 01/02/18 20:13 - Assessment/Plan Pt. seen and eval. by me. I agree with the A/P by the STOCK SHAPER. His edema has improved with the JENS-wraps and elevation. The renal finction is worsening. Nephrology suggests a trial of dialysis. Chest clear. RRR. Pacing. Echo today : EF 50-55%
[2018-01-06] MEDS ORDERED: Phytonadione 10 MG/ML AMP SC SCH (11:15)
[2018-01-06] MEDS: Torsemide 100 MG TAB PO SCH (11:19)
[2018-01-06] MEDS ORDERED: CEFAZOLIN/Water 2 GM/20 ML SYRINGE SLOW IVP SCH (11:45)
--- NOTE | 2018-01-06 13:48 | ULT ---
PREDIALYSIS ACCESS DUPLEX EXAMINATION: CPT: 14883 ICD-10-PCS: B54D HISTORY: End stage renal disease. TECHNIQUE: Munoz scale, color Doppler, and vascular duplex with spectral analysis was performed of the deep venou s structures of both lower extremities. The common femoral vein, superficial femoral vein, popliteal vein, posterior tibial vein, proximal greater saphenous, and proximal profunda veins were assessed bi laterally. FINDINGS: Right brachial artery 5.4 mm Right radial artery 1.6 mm Right ulnar artery 2.5 mm Right Cephalic Vein: Proximal humerus 3.6 mm Mid humerus 3.6 mm Distal 3.7 mm Elbow 3.8 mm Proximal forearm 4.0 mm Mid 1.9 mm Distal 1.6 mm Right Basilic Vein: Proximal humerus 4.1 mm Mid humerus 3.4 mm Distal 3.8 mm Elbow 3.8 mm Proximal forearm 2.3 mm Mid 2.3 mm Distal 2.9 mm Left brachial artery 6.0 mm Left radial artery 2.4 mm Left ulnar artery 2.4 mm Left Cephalic Vein: Proximal humerus 4.1 mm Mid humerus 3.9 mm Distal 3.9 mm Elbow 9.2 mm Proximal forearm 2.7 mm Mid 2.1 mm Distal 1.7 mm Left Basilic Vein: Proximal humerus 5.1 mm Mid humerus 4.0 mm Distal 3.7 mm Elbow 3.9 mm Proximal forearm 2.5 mm Mid 2.0 mm Distal 0.9 mm IMPRESSION: Predialysis duplex examination. POS: [facility]
--- NOTE | 2018-01-06 16:56 | HP ---
HISTORY OF PRESENT ILLNESS: Júnior Villa is an 87-year-old male with chronic kidney disease, h as progressed to end-stage renal disease. He has diastolic dysfunction with a cardiac ejection fract ion of 45%. He is followed by Cardiology. I have been asked to see him by Dr. Og for placement of hemodialysis catheter to initiate dialysis. He has a left subclavian vein defibrillator pacemaker. He was anemic. He has been seen by Dr. Correa, Gastroenterology, and Dr. Jaimes, Cardiovascular, doc umenting palpable pulses, and his paresthesias in his foot is not due to PAD. I have been asked to s ee him regarding placement of hemodialysis catheter. Marking ultrasound has been obtained today, , revealing cephalic vein 3.6, 3.6, 3.7, 3.8 at the elbow and 4.0 at the proximal forearm. An tecubital IV was removed today after orders written to do so. AICD, left subclavian and left cephali c vein 4.1, 3.9, 3.9, 9.2 mm and 2.7 and 2.1 mm; basilic vein 5.1, 4.0, 3.7, 3.9 mm. TOBACCO: None. ALCOHOL: None. MEDICATIONS: Buspirone 10 mg t.i.d., gabapentin 100 mg b.i.d., metolazone 5 mg a day, carvedilol 3.1 25 mg b.i.d., Coumadin 4 mg a day other days except Wednesday, Wednesday, and Wednesday where he will recei ve 5 mg, hydrocortisone/Cortef 30 mg b.i.d., omeprazole 20 mg daily, nitroglycerin p.r.n., furosemide 40 mg twice a day, finasteride 5 mg daily, VESIcare 5 mg a day, potassium chloride daily, meclizine 25 mg t.i.d., levothyroxine 88 mcg daily. PAST MEDICAL HISTORY: End-stage renal disease and need to start dialysis. Past history of CKD, UTIs in the past, nephrolithiasis, panhypopituitarism, cardiomyopathy with nonischemic past cardiac jos terizations without significant coronary artery disease, NATASHA more than 5 years ago and on anticoagula tion since that time, history of atrial fibrillation. PAST SURGICAL HISTORY: Tonsillectomy. Left subclavian vein defibrillator pacemaker. SOCIAL HISTORY: Tobacco abuse in the past, none several years ago. Alcohol, none. Drug use, none. ALLERGIES: CIPRO, IODINE, MACRODANTIN, SULFONAMIDES. PHYSICAL EXAMINATION: VITAL SIGNS: 5 feet 9 inches, 325 pounds, 33 BMI, 97.8, 84, 18, 135/62. HEAD, EARS, EYES, NOSE, AND THROAT: Unremarkable. LUNGS: Clear to auscultation. CARDIAC: Regular rate and rhythm. ABDOMEN: Obese, soft, nontender. EXTREMITIES: Palpable pulses. Bandaged right antecubital area indicative of old IV, recently moved. Left chest pacemaker defibrillator. LABORATORY DATA: White count 9, hemoglobin 10.8. Basic metabolic profile: Sodium 138, potassium 3. 0, BUN 76, creatinine 3.52. ASSESSMENT AND PLAN: 1. End-stage renal disease and need to initiate dialysis. We will plan hemodialysis catheter, right IJ cuffed tunneled, and placement of right arm primary fistula, hopefully in his antecubital vein fr om his recent IV access in a patient with known chronic kidney disease (contraindicated) will not pre vent him having a primary fistula. 2. Defibrillator left subclavian vein. 3. Nonischemic cardiomyopathy with cardiac ejection fraction of 40%-50%. 4. Chronic leg edema, severe.
[2018-01-06] MEDS: TROSPIUM 20 MG TABLET PO SCH (20:26)
--- NOTE | 2018-01-06 22:31 | PRG ---
DATE OF SERVICE: 01/06/2018 SUBJECTIVE: This is an 87-year-old gentleman being seen for acute kidney injury. The patient compla ins of dyspnea from generalized swelling. The patient denies chest pain. PHYSICAL EXAMINATION: GENERAL: The patient is resting. VITAL SIGNS: Afebrile, pulse 80, breathing at 16, blood pressure . GENERAL APPEARANCE AND MENTAL STATUS: Fair. HEAD/NECK: Normocephalic. Atraumatic. EYES: EOMI. No deformity. EARS: Clear. No ulcers. NOSE: Intact. No lesions. MOUTH: Clear. No discharge. THROAT: Clear. No exudate. LUNGS: Clear. No crackles. CARDIAC: S1, S2. No rub. ABDOMEN: Benign. BS+. GENITALIA/RECTUM: Shabazz absent. BACK/EXTREMITIES: The patient has 4+ edema. NEUROLOGICAL: Alert and motor intact. SKIN: Rash- Bruise-. LYMPHATICS: Edema- Ulcer-. LABORATORY DATA: Labs show creatinine 3.5. ASSESSMENT AND PLAN: 1. Stage 5 chronic kidney disease with uremia. We discussed risks versus benefits of dialysis. We will plan renal replacement therapy. 2. Hypokalemia. Recommend potassium replacement. 3. Uremia. 4. Congestive heart failure. Overall, prognosis is poor.
--- NOTE | 2018-01-06 23:41 | PDOC.PN ---
- Subjective Encounter Start Date: 01/06/18 Encounter Start Time: 09:50 Patient seen and examined for CHF. No new complaints. No overnight events - Objective Resuscitation Status: Resuscitation Status FULL:Full Resuscitation MAR Reviewed: Yes Vital Signs & Weight: Vital Signs (12 hours) Temp Pulse Resp BP Pulse Ox 01/06/18 20:19 98 F 80 20 125/58 L 98 01/06/18 15:32 97.9 F 80 16 132/60 97 Weight Admit Weight 234 lb Weight 225 lb 9.6 oz I&O: 01/05/18 01/06/18 01/07/18 06:59 06:59 06:59 Intake Total 1080 985 450 Output Total 1225 1670 875 Balance -145 -685 -425 Result Diagrams: 01/05/18 04:47 01/06/18 05:16 EKG Reviewed by me: Yes (Tele SR) Phys Exam - Physical Examination Constitutional: NAD Respiratory: no wheezing, no rhonchi Bibasilar rales Cardiovascular: RRR, no rub Gastrointestinal: soft, positive bowel sounds Musculoskeletal: edema present Neurological: moves all 4 limbs Dx/Plan - Plan DVT proph w/SCDs IMPRESSION: 1. Acute on chronic systolic and diastolic HF 2. L LE Cellulitis - on PO Atbx 3. 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 Chr Afib with subtherapeutic INR 5. Hypokalemia/Physical deconditioning / BPH/ Hypothyroidism/ Elevated troponins due to CHF/thrombocytopenia/Obesity BMI 35/ Chronic Adrenal insuff. 6. Other issues per previous notes PLAN: Warfarin on hold for dialysis access Cont Keflex Replace Potassium Cont diuresis AM labs PT/INR in AM Cont other meds as below Review of Systems - Review of Systems Cardiovascular: negative: chest pain, palpitations, orthopnea, paroxysmal nocturnal dyspnea, edema, light headedness, other Gastrointestinal: negative: Nausea, Vomiting, Abdominal Pain, Diarrhea, Constipation, Melena, Hematochezia, Other - Medications/Allergies Allergies/Adverse Reactions: Allergies Allergy/AdvReac Type Severity Reaction Status Date / Time ciprofloxacin HCl Allergy Verified 07/13/17 21:32 [From Cipro] iodine Allergy Verified 07/13/17 21:32 nitrofurantoin Allergy Verified 07/13/17 21:32 macrocrystalline [From Macrodantin] Sulfa (Sulfonamide Allergy Verified 07/13/17 21:32 Antibiotics) Medications: Current Medications Acetaminophen (Tylenol) 650 mg PO Q4H PRN PRN Reason: Headache or Pain Bisacodyl (Dulcolax) 10 mg PO DAILYPRN PRN PRN Reason: Constipation- 2nd line Buspirone HCl (Buspar) 10 mg PO TID [facility] Last Admin: 01/06/18 20:26 Dose: 10 mg Carvedilol (Coreg) 6.25 mg PO BID [facility] Last Admin: 01/06/18 20:26 Dose: 6.25 mg Cefazolin Sodium (Ancef) 2 gm SLOW IVP ONCALL-OR [facility] Cephalexin (Keflex) 250 mg PO TID [facility] Last Admin: 01/06/18 20:26 Dose: 250 mg Cyanocobalamin (Vitamin B-12) 1,000 mcg PO DAILY [facility] Last Admin: 01/06/18 08:39 Dose: 1,000 mcg Famotidine (Pepcid) 20 mg PO DAILY [facility] Last Admin: 01/06/18 08:39 Dose: 20 mg Finasteride (Proscar) 5 mg PO DAILY [facility] Last Admin: 01/06/18 08:39 Dose: 5 mg Gabapentin (Neurontin) 100 mg PO BID PRN PRN Reason: Pain Last Admin: 01/04/18 14:06 Dose: 100 mg Gabapentin (Neurontin) 100 mg PO DAILY [facility] Last Admin: 01/06/18 08:39 Dose: 100 mg Hydrocortisone (Cortef) 30 mg PO BID [facility] Last Admin: 01/06/18 20:25 Dose: 30 mg Levothyroxine Sodium (Synthroid) 88 mcg PO 0600 [facility] Last Admin: 01/06/18 05:24 Dose: 88 mcg Meclizine HCl (Antivert) 25 mg PO TID PRN PRN Reason: Dizziness Mineral Oil/White Petrolatum (Eucerin Cream) 0 gm TOP BIDPRN PRN PRN Reason: Dry Skin Nitroglycerin (Nitrostat) 0.4 mg PO Q5MIN PRN PRN Reason: Chest Pain Ondansetron HCl (Zofran Odt) 4 mg PO Q6H PRN PRN Reason: Nausea/Vomiting Polyethylene Glycol (Miralax) 17 gm PO DAILY [facility] Last Admin: 01/06/18 08:40 Dose: 17 gm Potassium Chloride (Klor-Con 10) 10 meq PO DAILY [facility] Last Admin: 01/06/18 08:40 Dose: 10 meq Senna (Senokot) 2 tab PO HSPRN PRN PRN Reason: Constipation- 1ST line Last Admin: 12/30/17 18:09 Dose: 2 tab Senna/Docusate Sodium (Senokot S) 1 tab PO BID [facility] Last Admin: 01/06/18 20:25 Dose: Not Given Sodium Chloride (Flush - Normal Saline) 10 ml IVF PRN PRN PRN Reason: Saline Flush Last Admin: 01/04/18 03:10 Dose: 10 ml Sodium Chloride ([place] Nasal [place] 0.65%) 0 ml EA NARE TID PRN PRN Reason: Nasal Congestion Torsemide (Demadex) 100 mg PO 1100 [facility] Last Admin: 01/06/18 11:19 Dose: 100 mg Tramadol HCl (Ultram) 50 mg PO Q6H PRN PRN Reason: Moderate Pain (4-6) Last Admin: 01/05/18 01:17 Dose: 50 mg Trospium (Trospium) 20 mg PO HS [facility] Last Admin: 01/06/18 20:26 Dose: 20 mg Vitamin B Complex/Vit C/Folic Acid (Nephro-Mariluz Tablet) 1 tab PO DAILY [facility] Last Admin: 01/06/18 08:39 Dose: 1 tab
[2018-01-06] MEDS: traMADol HCl 50 MG TAB PO PRN (23:53)
[2018-01-07 06:09] LABS: Hemoglobin 10.9 g/dL (14.0-18.0); Platelet Count 175 thou/uL (130-400)
[2018-01-07] MEDS: Carvedilol 3.125 MG TAB PO SCH ×2 (06:20→21:01)
[2018-01-07] MEDS: Levothyroxine Sodium 88 MCG TAB PO SCH (06:20)
[2018-01-07 06:22] LABS: INR-International Normal Ratio 1.3; Prothrombin Time 16.5 SEC (12.0-14.7)
[2018-01-07 06:28] LABS: Anion Gap 14 mmol/L (10-20); BUN (Urea Nitrogen) 81 mg/dL (8.4-25.7); Calc. Creatinine Clearance 21 mL/min (70-130); Calcium 9.4 mg/dL (7.8-10.44); Carbon Dioxide 29 mmol/L (23-31); Chloride 96 mmol/L (98-107); Estimated GFR-MDRD 17; Glucose 131 mg/dL (83-110); Sodium 136 mmol/L (136-145)
[2018-01-07] MEDS: Gabapentin 100 MG CAP PO SCH (08:48)
[2018-01-07] MEDS: Folic Acid/Vit B Comp W-C PO SCH (08:48)
[2018-01-07] MEDS: Cephalexin 250 MG CAP PO SCH ×3 (08:48→22:14)
[2018-01-07] MEDS: Cyanocobalamin (Vitamin B-12) 1,000 MCG TAB PO SCH (08:49)
[2018-01-07] MEDS: Finasteride 5 MG TAB PO SCH (08:49)
[2018-01-07] MEDS: Hydrocortisone 10 mg Tablet PO SCH ×2 (08:49→20:59)
[2018-01-07] MEDS: busPIRone HCl 10 MG TAB PO SCH ×3 (08:49→22:14)
[2018-01-07] MEDS: Famotidine 20 MG TAB PO SCH (08:50)
--- NOTE | 2018-01-07 09:30 | PDOC.CTH ---
Cardiology Progress Note - Subjective The pt seen and examined. No overnight events. He complains of fatigue and very weak. - Objective Vital Signs Temp Pulse Resp BP Pulse Ox 01/07/18 08:00 97.6 F 80 18 123/65 93 L 01/07/18 06:16 80 18 115/58 L 01/07/18 03:03 98.3 F 82 20 113/86 96 01/06/18 23:17 79 20 131/62 97 Admit Weight 234 lb Weight 222 lb 4.8 oz 01/06/18 01/07/18 01/08/18 06:59 06:59 06:59 Intake Total 985 810 Output Total 1670 1825 Balance -555 -1015 - Physical Examination General/Neuro: alert & oriented x3 Neck: no JVD present Lungs: other: (diminished at bases) Heart: RRR Abdomen: soft Extremities: other: (3-4+ pitting BLE edema) - Telemetry Telemetry Rhythm: AV paced - Labs Result Diagrams: 01/07/18 05:51 01/07/18 05:51 Troponin/CKMB CK-MB (CK-2) 3.3 ng/mL (0-6.6) 12/27/17 22:53 Troponin I 0.071 ng/mL (< 0.028) H 01/02/18 20:13 - Assessment/Plan 1. 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 On Torsemide 100mg qd. 2. Non-ischemic CMY with AICD - stable; 3. CKD stage 4 - worsen today; Plan for Rt AV fistula, hemo cath, and Central line today? 4. HTN - stable 5. Bilat Edema - unchanged. 6. Hypothyroidism - On levothyroxin; managed by PCP 7. Dizziness - stable 8. 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 Review of Systems - Review of Systems Constitutional: reports: see HPI EENTM: reports: no symptoms reported Respiratory: reports: no symptoms reported Cardiac (ROS): reports: no symptoms reported ABD/GI: reports: no symptoms reported : reports: no symptoms reported Musculoskeletal: reports: see HPI
[2018-01-07] MEDS ORDERED: Heparin 10,000 UNITS/ 10 ML VIAL ONE ×2 (10:49→11:39)
[2018-01-07] MEDS ORDERED: Bupivacaine HCl 0.5%/Epinephrine 1:200,000/PF 30 ml Vial ONE (11:00)
[2018-01-07] MEDS ORDERED: Fentanyl 100 MCG/2 ML VIAL ONE ×2 (11:36→13:18)
[2018-01-07] MEDS ORDERED: Midazolam HCl 2 mg/2 ml Vial ONE ×2 (11:36→13:18)
[2018-01-07] MEDS ORDERED: PROPOFOL 200 MG/20 ML VIAL ONE (11:39)
--- NOTE | 2018-01-07 12:10 | PRG ---
DATE OF SERVICE: 01/07/2018 SUBJECTIVE: This is an 87-year-old gentleman being seen for acute kidney injury. The patient denies any nausea, vomiting or chest pain. PHYSICAL EXAMINATION: GENERAL: Patient is awake, alert. VITAL SIGNS: Afebrile, pulse 80, breathing 16, blood pressure 123/65. OBJECTIVE: See above. Awake, alert, in no acute distress. GENERAL APPEARANCE AND MENTAL STATUS: Fair. HEAD/NECK: Normocephalic. Atraumatic. EYES: EOMI. No deformity. EARS: Clear. No ulcers. NOSE: Intact. No lesions. MOUTH: Clear. No discharge. THROAT: Clear. No exudate. LUNGS: Clear. No crackles. CARDIAC: S1, S2. No rub. ABDOMEN: Benign. BS+. GENITALIA/RECTUM: Shabazz absent. BACK/EXTREMITIES: Lower extremities have edema. NEUROLOGICAL: Alert and motor intact. SKIN: Rash- Bruise- LYMPHATICS: Edema- Ulcer- LABORATORY: Hemoglobin 10.9, creatinine 2.4. ASSESSMENT: 1. Stage 5 chronic kidney disease with progressive decrease in renal function. We will plan renal r eplacement therapy after access. 2. Hypertension, stable. 3. Anemia, stable. 4. Medications based on glomerular filtration rate are appropriate.
[2018-01-07] MEDS ORDERED: Sodium Chloride 0.9% 40 ML ONE (13:10)
[2018-01-07] MEDS ORDERED: Heparin 5,000 UNITS/ML VIAL ONE (13:10)
[2018-01-07] MEDS ORDERED: Bupivacaine/Epinephrine 0.25% 30 ML VIAL ONE (13:10)
[2018-01-07] MEDS ORDERED: Protamine Sulfate 50 MG/5 ML VIAL ONE (13:10)
[2018-01-07] MEDS ORDERED: Lidocaine 2% 10 ML INJ ONE (13:10)
[2018-01-07] MEDS ORDERED: Heparin 10,000 UNITS/1 ML VIAL ONE (13:10)
[2018-01-07] MEDS ORDERED: CEFAZOLIN/Water 2 GM/20 ML SYRINGE ONE (13:11)
[2018-01-07] MEDS ORDERED: Acetaminophen 500 MG TAB PO PRN (13:43)
--- NOTE | 2018-01-07 14:31 | PDOC.PN ---
- Subjective Encounter Start Date: 01/07/18 Encounter Start Time: 09:30 Patient seen and examined for CHF. No new complaints. No overnight events - Objective Resuscitation Status: Resuscitation Status FULL:Full Resuscitation MAR Reviewed: Yes Vital Signs & Weight: Vital Signs (12 hours) Temp Pulse Resp BP Pulse Ox 01/07/18 08:00 97.6 F 80 18 123/65 93 L 01/07/18 06:16 80 18 115/58 L 01/07/18 03:03 98.3 F 82 20 113/86 96 Weight Admit Weight 234 lb Weight 222 lb 4.8 oz I&O: 01/06/18 01/07/18 01/08/18 06:59 06:59 06:59 Intake Total 985 810 Output Total 1670 1825 Balance -685 -1015 Result Diagrams: 01/07/18 05:51 01/07/18 05:51 EKG Reviewed by me: Yes (Tele paced) Phys Exam - Physical Examination Constitutional: NAD Respiratory: no wheezing Bibasilar rales Cardiovascular: RRR, no rub Gastrointestinal: soft Musculoskeletal: edema present Neurological: moves all 4 limbs Dx/Plan - Plan DVT proph w/SCDs IMPRESSION: 1. Acute on chronic systolic and diastolic HF - refractory to diuresis 2. L LE Cellulitis - on PO Atbx 3. 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 Chr Afib with subtherapeutic INR - Warfarin on hold due to dialysis access 5. 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 Other issues per previous notes PLAN: Dialysis access today Cont Keflex Replace Potassium Cont diuresis with Torsemide AM labs Cont other meds as below Cont PT/OT Review of Systems - Review of Systems Constitutional: negative: fever, chills, sweats, weakness, malaise, other Gastrointestinal: negative: Nausea, Vomiting, Abdominal Pain, Diarrhea, Constipation, Melena, Hematochezia, Other - Medications/Allergies Allergies/Adverse Reactions: Allergies Allergy/AdvReac Type Severity Reaction Status Date / Time ciprofloxacin HCl Allergy Verified 07/13/17 21:32 [From Cipro] iodine Allergy Verified 07/13/17 21:32 nitrofurantoin Allergy Verified 07/13/17 21:32 macrocrystalline [From Macrodantin] Sulfa (Sulfonamide Allergy Verified 07/13/17 21:32 Antibiotics) Medications: Current Medications Acetaminophen (Tylenol) 650 mg PO Q4H PRN PRN Reason: Headache or Pain Acetaminophen (Tylenol) 1,000 mg PO Q6H PRN PRN Reason: Moderate to Severe Pain (6-10) Bisacodyl (Dulcolax) 10 mg PO DAILYPRN PRN PRN Reason: Constipation- 2nd line Buspirone HCl (Buspar) 10 mg PO TID [facility] Last Admin: 01/07/18 08:49 Dose: 10 mg Carvedilol (Coreg) 6.25 mg PO BID [facility] Last Admin: 01/07/18 06:20 Dose: 6.25 mg Cefazolin Sodium (Ancef) 2 gm SLOW IVP ONCALL-OR KONRAD Cephalexin (Keflex) 250 mg PO TID [facility] Last Admin: 01/07/18 08:48 Dose: 250 mg Cyanocobalamin (Vitamin B-12) 1,000 mcg PO DAILY [facility] Last Admin: 01/07/18 08:49 Dose: 1,000 mcg Famotidine (Pepcid) 20 mg PO DAILY [facility] Last Admin: 01/07/18 08:50 Dose: 20 mg Finasteride (Proscar) 5 mg PO DAILY [facility] Last Admin: 01/07/18 08:49 Dose: 5 mg Gabapentin (Neurontin) 100 mg PO BID PRN PRN Reason: Pain Last Admin: 01/04/18 14:06 Dose: 100 mg Gabapentin (Neurontin) 100 mg PO DAILY [facility] Last Admin: 01/07/18 08:48 Dose: 100 mg Hydrocortisone (Cortef) 30 mg PO BID [facility] Last Admin: 01/07/18 08:49 Dose: 30 mg Levothyroxine Sodium (Synthroid) 88 mcg PO 0600 [facility] Last Admin: 01/07/18 06:20 Dose: 88 mcg Meclizine HCl (Antivert) 25 mg PO TID PRN PRN Reason: Dizziness Mineral Oil/White Petrolatum (Eucerin Cream) 0 gm TOP BIDPRN PRN PRN Reason: Dry Skin Nitroglycerin (Nitrostat) 0.4 mg PO Q5MIN PRN PRN Reason: Chest Pain Ondansetron HCl (Zofran Odt) 4 mg PO Q6H PRN PRN Reason: Nausea/Vomiting Polyethylene Glycol (Miralax) 17 gm PO DAILY [facility] Last Admin: 01/06/18 08:40 Dose: 17 gm Potassium Chloride (Klor-Con 10) 10 meq PO DAILY [facility] Last Admin: 01/06/18 08:40 Dose: 10 meq Senna (Senokot) 2 tab PO HSPRN PRN PRN Reason: Constipation- 1ST line Last Admin: 12/30/17 18:09 Dose: 2 tab Senna/Docusate Sodium (Senokot S) 1 tab PO BID [facility] Last Admin: 01/06/18 20:25 Dose: Not Given Sodium Chloride (Flush - Normal Saline) 10 ml IVF PRN PRN PRN Reason: Saline Flush Last Admin: 01/04/18 03:10 Dose: 10 ml Sodium Chloride ([place] Nasal [place] 0.65%) 0 ml EA NARE TID PRN PRN Reason: Nasal Congestion Torsemide (Demadex) 100 mg PO 1100 [facility] Last Admin: 01/06/18 11:19 Dose: 100 mg Tramadol HCl (Ultram) 50 mg PO Q6H PRN PRN Reason: Moderate Pain (4-6) Last Admin: 01/06/18 23:53 Dose: 50 mg Tramadol HCl (Ultram) 100 mg PO Q6H PRN PRN Reason: Pain 1-5 Trospium (Trospium) 20 mg PO HS [facility] Last Admin: 01/06/18 20:26 Dose: 20 mg Vitamin B Complex/Vit C/Folic Acid (Nephro-Mariluz Tablet) 1 tab PO DAILY [facility] Last Admin: 01/07/18 08:48 Dose: 1 tab
--- NOTE | 2018-01-07 16:03 | RAD ---
XRAY FLUORO INHERENT TO SURGERY PROCEDURE: COMPARISON: None. FINDINGS: A single spot image from fluoroscopy from the surgeon for placement of a hemodialysis catheter. Left IJ central venous catheter is in place. IMPRESSION: Fluoroscopy for surgical use. POS: JANNET
--- NOTE | 2018-01-07 16:37 | RAD ---
PORTABLE AP CHEST: Date: 01/07/18 HISTORY: Central line placement. COMPARISON: 12/27/17. FINDINGS: Triple lead left subclavian AICD device remains in place. A left internal jugular vein central venous catheter is now noted in place with tip overlying the expected location of the distal SVC. There is also placement of a tunneled right internal jugular vein MediPort catheter, the mid portion which is not imaged. The tip overlies the right atrium. No pneumothorax or pleural effusion is seen. There is increased density at the left lung base, likely related to the depth of inspiration and accentuation of the cardiaca silhouette limiting evaluation of the left lung base. Lungs are otherwise clear. Vasc ular calcifications seen thoracic aorta. IMPRESSION: Tunneled right internal jugular vein hemodialysis catheter, as well as left internal jugular vein андрей tral venous catheters are noted in place. No pneumothorax is seen. POS: JANNET
[2018-01-07] MEDS: Potassium Chloride 20 MEQ TAB PO SCH ×2 (17:00→22:14)
--- NOTE | 2018-01-07 18:25 | OP ---
DATE OF PROCEDURE: 01/07/2018 PREOPERATIVE DIAGNOSES: End-stage renal disease, poor IV access, defibrillator pacemaker in left sub clavian vein. POSTOPERATIVE DIAGNOSES: End-stage renal disease, poor IV access, defibrillator pacemaker in left mirelse bclavian vein. PROCEDURE: Right IJ cuffed tunnel hemodialysis catheter, angiodynamics precurved, left IJ central li ne, fluoroscopy and ultrasound used for placement, right arm primary fistula, proximal radial artery inflow, outflow perforating branch tibial vein very large outflow primarily anatomic reason, cephalic vein, but communication to basilic vein maintained 4 mm coronary dilator calibration outflow. SURGEON: Dr. Ankush Interiano ANESTHESIA: Regional TIVA. Local 0.5% Marcaine with epinephrine 30 mL % Xylocaine, 10 mL. PROCEDURE IN DETAIL: The patient was taken to the operating room where under regional anesthesia, ri ght arm and intravenous sedation, his neck and chest and right upper extremity, axilla, chest prepare d with ChloraPrep, draped in routine fashion. Local anesthetic infiltrated into the skin and subcuta neous tissue about the operative site for placement of the lines, identified Internal jugular veins, right and left trocar catheters cannulated. J-wire threaded, trocar catheters removed. Skin incised and enlarged sharply. Stab incision made over the right chest and using the tunneling device, the p recurved angiodynamics cuffed tunnel hemodialysis catheter tunneled between the two incisions, placin g the fiber cuff beneath the skin. Smaller medium size dilators placed over the J-wire into the inte rnal jugular vein removed. Dilator and pull-away sheath placed over the J-wire into the internal jug ular vein, right into the superior vena cava and dilator J-wire removed. Catheter placed with pull-a way sheath. Pull-away sheath removed. Seldinger technique used to place a left IJ triple lumen cath eter. J-wire removed. On the right side of the neck incision closed by approximating platysma with 4-0 Monocryl, skin with subdermal 4-0 Monocryl and DermaGlue applied. Both catheters secured with 3- 0 nylon suture. Fluoroscopic images revealed good line placement in each lines. All the ports on ea ch lines aspirated blood, flushed with saline solution. The hemodialysis catheter flushed with 1000 units heparin per mL indicated volume of the port. Sterile dressings applied. Patient tolerated the procedure well. Incision was made in the proximal volar forearm longitudinally below the antecubital fossa, carried t hrough skin and subcutaneous tissue. Antecubital vein, brachial, ulnar, and radial arteries dissecte d free. The patient was given 6000 units heparin intravenously. The vein dissected free, perforatin g branch was very large, branches divided between clips and 4-0 silk ties, spatulated and interrogate d with coronary dilators, passing tube and require by passing coronary dilators serially, 2 mm to 4 m m out the cephalic vein outflow without obstruction. It was flushed with heparinized saline solution . Brachial, ulnar and radial arteries clamped with vascular clamps. Longitudinal arteriotomy made s jackelyn and elongated with Harding scissors over the proximal radial artery for a 2.5 cm anastomosis. V ein accordingly spatulated and continuous suture of 6-0 Prolene used for the anastomosis. Branches l igated with 4-0 silk ties. Vascular clamps released and there was good flow evident by Doppler inter rogation. Occlusion of the basilic vein did not improve the Doppler signal in the cephalic vein outf low and cephalic vein outflow was the primary outflow for anatomic reasons. Patient given 50 mg of p rotamine intravenously by Anesthesia. Subcutaneous tissues approximated with 3-0 Monocryl, skin with subdermal 4-0 Monocryl and DermaGlue applied.
[2018-01-07 18:28] LABS: Hep B Core Total Ab Non-Reactive (NonReactive)
[2018-01-07 18:29] LABS: HBSAB Concentration 0.09 mIU/mL; Hep B Surf AB Non-Reactive (NonReactive); Hep B Surf Ag Non-Reactive S/CO (NonReactive)
[2018-01-07 18:30] LABS: Hep C IgG Ab Non-Reactive (NonReactive)
[2018-01-07] MEDS: Senokot S 8.6-50 MG TAB PO SCH ×2 (21:00→22:14)
[2018-01-07] MEDS: TROSPIUM 20 MG TABLET PO SCH (21:01)
[2018-01-07] MEDS: traMADol HCl 50 MG TAB PO PRN (21:02)
[2018-01-07] MEDS: Polyethylene Glycol 3350 17 GM Packet PO SCH (22:13)
[2018-01-07] MEDS: Potassium Chloride 10 MEQ TAB PO SCH (22:13)
[2018-01-07] MEDS: Torsemide 100 MG TAB PO SCH (22:14)
[2018-01-08] MEDS: Levothyroxine Sodium 88 MCG TAB PO SCH (05:15)
[2018-01-08 06:21] LABS: Anion Gap 12 mmol/L (10-20); BUN (Urea Nitrogen) 58 mg/dL (8.4-25.7); Calc. Creatinine Clearance 26 mL/min (70-130); Calcium 8.7 mg/dL (7.8-10.44); Carbon Dioxide 32 mmol/L (23-31); Chloride 97 mmol/L (98-107); Estimated GFR-MDRD 22; Glucose 121 mg/dL (83-110); Potassium 3.3 mmol/L (3.5-5.1); Sodium 138 mmol/L (136-145)
[2018-01-08] MEDS ORDERED: Potassium Chloride 20 MEQ TAB PO SCH (08:45)
[2018-01-08] MEDS ORDERED: Heparin 1,000 UNITS/ML VIAL ONE (11:11)
--- NOTE | 2018-01-08 11:41 | PRG ---
DATE OF SERVICE: 01/08/2018 SUBJECTIVE: An 87-year-old gentleman being seen for acute kidney injury, dialysis dependent. The pa tient denies any nausea, vomiting, or chest pain. PHYSICAL EXAMINATION: GENERAL: Patient is awake, alert. VITAL SIGNS: Afebrile, pulse 80, breathing at 16, blood pressure 141/65. GENERAL APPEARANCE AND MENTAL STATUS: Fair. HEAD/NECK: Normocephalic. Atraumatic. EYES: EOMI. No deformity. EARS: Clear. No ulcers. NOSE: Intact. No lesions. MOUTH: Clear. No discharge. THROAT: Clear. No exudate. LUNGS: Clear. No crackles. CARDIAC: S1, S2. No rub. ABDOMEN: Benign. BS+. GENITALIA/RECTUM: Shabazz absent. BACK/EXTREMITIES: Lower extremities have edema, ulcer-. NEUROLOGICAL: Alert and motor intact. SKIN: Rash- Bruise- LYMPHATICS: Edema- Ulcer-. LABORATORY DATA: Show potassium 3.3. ASSESSMENT AND RECOMMENDATIONS: 1. Stage 6 chronic kidney disease, we will plan hemodialysis. 2. Hypertension, stable. 3. Anemia, stable. 4. Hypokalemia. We will do 4K bath. Follow labs closely.
[2018-01-08] MEDS: Finasteride 5 MG TAB PO SCH (12:54)
[2018-01-08] MEDS: busPIRone HCl 10 MG TAB PO SCH ×3 (12:54→20:58)
[2018-01-08] MEDS: Famotidine 20 MG TAB PO SCH (12:54)
[2018-01-08] MEDS: Gabapentin 100 MG CAP PO SCH (12:55)
[2018-01-08] MEDS: Cyanocobalamin (Vitamin B-12) 1,000 MCG TAB PO SCH (12:55)
[2018-01-08] MEDS: Cephalexin 250 MG CAP PO SCH ×3 (12:55→20:58)
[2018-01-08] MEDS: Senokot S 8.6-50 MG TAB PO SCH ×2 (12:55→20:58)
[2018-01-08] MEDS: Hydrocortisone 10 mg Tablet PO SCH ×2 (12:55→20:58)
[2018-01-08] MEDS: Folic Acid/Vit B Comp W-C PO SCH (12:56)
[2018-01-08] MEDS: Polyethylene Glycol 3350 17 GM Packet PO SCH (12:56)
[2018-01-08] MEDS: Potassium Chloride 10 MEQ TAB PO SCH (13:01)
[2018-01-08] MEDS: Carvedilol 3.125 MG TAB PO SCH ×2 (13:04→20:58)
[2018-01-08] MEDS: Torsemide 100 MG TAB PO SCH (13:05)
--- NOTE | 2018-01-08 17:53 | PDOC.CTH ---
Cardiology Progress Note - Subjective No new issues. Breathing close to baseline. - Objective Vital Signs Temp Pulse Pulse Pulse Pulse Pulse Resp 01/08/18 16:00 98.1 F 80 16 01/08/18 14:34 80 80 80 74 01/08/18 11:30 97.4 F L 80 18 01/08/18 08:00 97.4 F L 80 18 BP BP BP BP BP BP Pulse Ox 01/08/18 16:00 114/56 L 100 01/08/18 14:34 98/51 L 121/59 L 98/57 L 142/61 H 01/08/18 11:30 110/53 L 98 01/08/18 08:00 141/65 H 98 Admit Weight 234 lb Weight 224 lb 3.2 oz 01/07/18 01/08/18 01/09/18 06:59 06:59 06:59 Intake Total 810 600 720 Output Total 1825 1050 Balance -1015 -450 720 - Physical Examination General/Neuro: alert & oriented x3, NAD Neck: no JVD present Lungs: unlabored respirations, other: (mild crackles at bases.) Heart: RRR Abdomen: NT/ND Extremities: + edema B (3+) - Telemetry Telemetry Rhythm: AV paced. - Labs Result Diagrams: 01/07/18 05:51 01/08/18 05:09 Troponin/CKMB CK-MB (CK-2) 3.3 ng/mL (0-6.6) 12/27/17 22:53 Troponin I 0.071 ng/mL (< 0.028) H 01/02/18 20:13 - Assessment/Plan 1. 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 Non-ischemic CM, s/P AICD. 3. CKD Stage 5 4. HTN 5. Hypothyroidism 6. Hx of PE on coumadin PLAN:L - HD started today. - Once BP allows will start HF meds.
[2018-01-08] MEDS: TROSPIUM 20 MG TABLET PO SCH (20:57)
--- NOTE | 2018-01-08 20:57 | PDOC.PN ---
- Subjective Encounter Start Date: 01/08/18 Encounter Start Time: 08:30 Patient seen and examined for CHF during dialysis. No new complaints. No new SOB. No overnight events - Objective Resuscitation Status: Resuscitation Status FULL:Full Resuscitation MAR Reviewed: Yes Vital Signs & Weight: Vital Signs (12 hours) Temp Pulse Pulse Pulse Pulse Pulse Resp 01/08/18 20:00 98 F 83 18 01/08/18 16:00 98.1 F 80 16 01/08/18 14:34 80 80 80 74 01/08/18 11:30 97.4 F L 80 18 BP BP BP BP BP Pulse Ox 01/08/18 20:00 164/70 H 98 01/08/18 16:00 114/56 L 100 01/08/18 14:34 98/51 L 121/59 L 98/57 L 142/61 H 01/08/18 11:30 110/53 L 98 Weight Admit Weight 234 lb Weight 224 lb 3.2 oz I&O: 01/07/18 01/08/18 01/09/18 06:59 06:59 06:59 Intake Total 810 600 970 Output Total 1825 1050 1175 Balance -1015 -450 -205 Result Diagrams: 01/07/18 05:51 01/08/18 05:09 EKG Reviewed by me: Yes (Tele paced) Phys Exam - Physical Examination Constitutional: NAD Respiratory: no wheezing, no rhonchi Bibasilar rales Cardiovascular: RRR, no rub Gastrointestinal: soft, positive bowel sounds Musculoskeletal: edema present Neurological: moves all 4 limbs Dx/Plan - Plan DVT proph w/SCDs IMPRESSION: 1. Acute on chronic systolic and diastolic HF - refractory to diuresis - started on dialysis 2. L LE Cellulitis - on PO Atbx 3. 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 Chr Afib with subtherapeutic INR - Warfarin on hold per Gen surgery 5. 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 Other issues per previous notes PLAN: Dialysis per Nephro Replace Potassium Cont current meds as below Torsemide per Nephro AM labs Cont therapy Resume Warfarin if ok with Gen surg Review of Systems - Review of Systems Constitutional: negative: fever, chills, sweats, weakness, malaise, other Gastrointestinal: negative: Nausea, Vomiting, Abdominal Pain, Diarrhea, Constipation, Melena, Hematochezia, Other - Medications/Allergies Allergies/Adverse Reactions: Allergies Allergy/AdvReac Type Severity Reaction Status Date / Time ciprofloxacin HCl Allergy Verified 07/13/17 21:32 [From Cipro] iodine Allergy Verified 07/13/17 21:32 nitrofurantoin Allergy Verified 07/13/17 21:32 macrocrystalline [From Macrodantin] Sulfa (Sulfonamide Allergy Verified 07/13/17 21:32 Antibiotics) Medications: Current Medications Acetaminophen (Tylenol) 650 mg PO Q4H PRN PRN Reason: Headache or Pain Acetaminophen (Tylenol) 1,000 mg PO Q6H PRN PRN Reason: Moderate to Severe Pain (6-10) Bisacodyl (Dulcolax) 10 mg PO DAILYPRN PRN PRN Reason: Constipation- 2nd line Buspirone HCl (Buspar) 10 mg PO TID [facility] Last Admin: 01/08/18 16:49 Dose: 10 mg Carvedilol (Coreg) 6.25 mg PO BID [facility] Last Admin: 01/08/18 13:04 Dose: 6.25 mg Cefazolin Sodium (Ancef) 2 gm SLOW IVP ONCALL-OR KONRAD Cephalexin (Keflex) 250 mg PO TID [facility] Last Admin: 01/08/18 16:49 Dose: 250 mg Cyanocobalamin (Vitamin B-12) 1,000 mcg PO DAILY [facility] Last Admin: 01/08/18 12:55 Dose: 1,000 mcg Famotidine (Pepcid) 20 mg PO DAILY [facility] Last Admin: 01/08/18 12:54 Dose: 20 mg Finasteride (Proscar) 5 mg PO DAILY [facility] Last Admin: 01/08/18 12:54 Dose: 5 mg Gabapentin (Neurontin) 100 mg PO BID PRN PRN Reason: Pain Last Admin: 01/04/18 14:06 Dose: 100 mg Gabapentin (Neurontin) 100 mg PO DAILY [facility] Last Admin: 01/08/18 12:55 Dose: 100 mg Hydrocortisone (Cortef) 30 mg PO BID [facility] Last Admin: 01/08/18 12:55 Dose: 30 mg Levothyroxine Sodium (Synthroid) 88 mcg PO 0600 [facility] Last Admin: 01/08/18 05:15 Dose: 88 mcg Meclizine HCl (Antivert) 25 mg PO TID PRN PRN Reason: Dizziness Mineral Oil/White Petrolatum (Eucerin Cream) 0 gm TOP BIDPRN PRN PRN Reason: Dry Skin Nitroglycerin (Nitrostat) 0.4 mg PO Q5MIN PRN PRN Reason: Chest Pain Ondansetron HCl (Zofran Odt) 4 mg PO Q6H PRN PRN Reason: Nausea/Vomiting Polyethylene Glycol (Miralax) 17 gm PO DAILY [facility] Last Admin: 01/08/18 12:56 Dose: 17 gm Potassium Chloride (Klor-Con 10) 10 meq PO DAILY [facility] Last Admin: 01/08/18 13:01 Dose: Not Given Senna (Senokot) 2 tab PO HSPRN PRN PRN Reason: Constipation- 1ST line Last Admin: 12/30/17 18:09 Dose: 2 tab Senna/Docusate Sodium (Senokot S) 1 tab PO BID [facility] Last Admin: 01/08/18 12:55 Dose: 1 tab Sodium Chloride (Flush - Normal Saline) 10 ml IVF PRN PRN PRN Reason: Saline Flush Last Admin: 01/08/18 13:01 Dose: 10 ml Sodium Chloride ([place] Nasal [place] 0.65%) 0 ml EA NARE TID PRN PRN Reason: Nasal Congestion Torsemide (Demadex) 100 mg PO 1100 [facility] Last Admin: 01/08/18 13:05 Dose: 100 mg Tramadol HCl (Ultram) 50 mg PO Q6H PRN PRN Reason: Moderate Pain (4-6) Last Admin: 01/06/18 23:53 Dose: 50 mg Tramadol HCl (Ultram) 100 mg PO Q6H PRN PRN Reason: Pain 1-5 Last Admin: 01/07/18 21:02 Dose: 100 mg Trospium (Trospium) 20 mg PO HS [facility] Last Admin: 01/07/18 21:01 Dose: 20 mg Vitamin B Complex/Vit C/Folic Acid (Nephro-Mariluz Tablet) 1 tab PO DAILY [facility] Last Admin: 01/08/18 12:56 Dose: 1 tab
[2018-01-08] MEDS: traMADol HCl 50 MG TAB PO PRN (23:21)
[2018-01-09] MEDS: Levothyroxine Sodium 88 MCG TAB PO SCH (05:10)
[2018-01-09 05:48] LABS: Anion Gap 10 mmol/L (10-20); BUN (Urea Nitrogen) 42 mg/dL (8.4-25.7); Calc. Creatinine Clearance 29 mL/min (70-130); Calcium 8.6 mg/dL (7.8-10.44); Carbon Dioxide 32 mmol/L (23-31); Chloride 100 mmol/L (98-107); Estimated GFR-MDRD 24; Glucose 140 mg/dL (83-110); Potassium 3.5 mmol/L (3.5-5.1); Sodium 138 mmol/L (136-145)
[2018-01-09] MEDS: busPIRone HCl 10 MG TAB PO SCH ×3 (10:31→21:57)
[2018-01-09] MEDS: Carvedilol 3.125 MG TAB PO SCH ×2 (10:33→21:57)
[2018-01-09] MEDS: Cephalexin 250 MG CAP PO SCH ×3 (10:34→21:56)
[2018-01-09] MEDS: Cyanocobalamin (Vitamin B-12) 1,000 MCG TAB PO SCH (10:35)
[2018-01-09] MEDS: Folic Acid/Vit B Comp W-C PO SCH (10:36)
[2018-01-09] MEDS: Gabapentin 100 MG CAP PO SCH (10:36)
[2018-01-09] MEDS: Hydrocortisone 10 mg Tablet PO SCH ×2 (10:37→21:56)
[2018-01-09] MEDS: Potassium Chloride 10 MEQ TAB PO SCH (10:38)
[2018-01-09] MEDS: Famotidine 20 MG TAB PO SCH (10:39)
[2018-01-09] MEDS: Senokot S 8.6-50 MG TAB PO SCH ×2 (10:40→21:57)
[2018-01-09] MEDS: Finasteride 5 MG TAB PO SCH (10:41)
[2018-01-09] MEDS: Polyethylene Glycol 3350 17 GM Packet PO SCH (10:43)
--- NOTE | 2018-01-09 11:15 | PDOC.PN ---
- Subjective Encounter Start Date: 01/09/18 Encounter Start Time: 08:20 Patient seen and examined for CHF. Tolerated dialysis yesterday. No new complaints. No overnight events - Objective Resuscitation Status: Resuscitation Status FULL:Full Resuscitation MAR Reviewed: Yes Vital Signs & Weight: Vital Signs (12 hours) Temp Pulse Resp BP BP Pulse Ox 01/09/18 08:45 98.1 F 80 17 96 01/09/18 07:30 98.1 F 80 17 142/60 H 96 01/09/18 04:00 97.7 F 80 16 118/56 L 96 01/09/18 00:00 98.1 F 79 15 133/60 97 Weight Admit Weight 234 lb Weight 224 lb 4 oz I&O: 01/08/18 01/09/18 01/10/18 06:59 06:59 06:59 Intake Total 600 1090 Output Total 1050 1275 Balance -450 -185 Result Diagrams: 01/07/18 05:51 01/09/18 05:14 EKG Reviewed by me: Yes (Tele paced) Phys Exam - Physical Examination Constitutional: NAD Respiratory: no wheezing Scat rhonchi with bibasilar rales Cardiovascular: RRR, no rub Gastrointestinal: soft, positive bowel sounds Musculoskeletal: no edema Neurological: moves all 4 limbs Dx/Plan - Plan DVT proph w/SCDs IMPRESSION: 1. Acute on chronic systolic and diastolic HF - refractory to diuresis - started on dialysis 2. L LE Cellulitis - on PO Keflex 3. CHARI on CKD 4 - started on dialysis 4. Chr Afib with subtherapeutic INR - Warfarin on hold per Gen surgery 5. Hypokalemia/Physical deconditioning / BPH/ Hypothyroidism/ Elevated troponins due to CHF/thrombocytopenia/Obesity BMI 35/ Chronic Adrenal insuff - on Hydrocortisone 6. Other issues per previous notes PLAN: Dialysis per Nephro Cont current meds as below AM labs - BMP/HH Cont PT/OT Resume Warfarin if ok with Gen surg Review of Systems - Review of Systems Constitutional: negative: fever, chills, sweats, weakness, malaise, other Respiratory: negative: Cough, Dry, Shortness of Breath, Hemoptysis, SOB with Excertion, Pleuritic Pain, Sputum, Wheezing Gastrointestinal: negative: Nausea, Vomiting, Abdominal Pain, Diarrhea, Constipation, Melena, Hematochezia, Other - Medications/Allergies Allergies/Adverse Reactions: Allergies Allergy/AdvReac Type Severity Reaction Status Date / Time ciprofloxacin HCl Allergy Verified 07/13/17 21:32 [From Cipro] iodine Allergy Verified 07/13/17 21:32 nitrofurantoin Allergy Verified 07/13/17 21:32 macrocrystalline [From Macrodantin] Sulfa (Sulfonamide Allergy Verified 07/13/17 21:32 Antibiotics) Medications: Current Medications Acetaminophen (Tylenol) 650 mg PO Q4H PRN PRN Reason: Headache or Pain Last Admin: 01/09/18 10:40 Dose: 650 mg Acetaminophen (Tylenol) 1,000 mg PO Q6H PRN PRN Reason: Moderate to Severe Pain (6-10) Bisacodyl (Dulcolax) 10 mg PO DAILYPRN PRN PRN Reason: Constipation- 2nd line Buspirone HCl (Buspar) 10 mg PO TID [facility] Last Admin: 01/09/18 10:31 Dose: 10 mg Carvedilol (Coreg) 6.25 mg PO BID [facility] Last Admin: 01/09/18 10:33 Dose: 6.25 mg Cefazolin Sodium (Ancef) 2 gm SLOW IVP ONCALL-OR KONRAD Cephalexin (Keflex) 250 mg PO TID [facility] Last Admin: 01/09/18 10:34 Dose: 250 mg Cyanocobalamin (Vitamin B-12) 1,000 mcg PO DAILY [facility] Last Admin: 01/09/18 10:35 Dose: 1,000 mcg Famotidine (Pepcid) 20 mg PO DAILY [facility] Last Admin: 01/09/18 10:39 Dose: 20 mg Finasteride (Proscar) 5 mg PO DAILY [facility] Last Admin: 01/09/18 10:41 Dose: 5 mg Gabapentin (Neurontin) 100 mg PO BID PRN PRN Reason: Pain Last Admin: 01/04/18 14:06 Dose: 100 mg Gabapentin (Neurontin) 100 mg PO DAILY [facility] Last Admin: 01/09/18 10:36 Dose: 100 mg Hydrocortisone (Cortef) 30 mg PO BID [facility] Last Admin: 01/09/18 10:37 Dose: 30 mg Levothyroxine Sodium (Synthroid) 88 mcg PO 0600 [facility] Last Admin: 01/09/18 05:10 Dose: 88 mcg Meclizine HCl (Antivert) 25 mg PO TID PRN PRN Reason: Dizziness Mineral Oil/White Petrolatum (Eucerin Cream) 0 gm TOP BIDPRN PRN PRN Reason: Dry Skin Nitroglycerin (Nitrostat) 0.4 mg PO Q5MIN PRN PRN Reason: Chest Pain Ondansetron HCl (Zofran Odt) 4 mg PO Q6H PRN PRN Reason: Nausea/Vomiting Polyethylene Glycol (Miralax) 17 gm PO DAILY [facility] Last Admin: 01/09/18 10:43 Dose: 17 gm Potassium Chloride (Klor-Con 10) 10 meq PO DAILY [facility] Last Admin: 01/09/18 10:38 Dose: 10 meq Senna (Senokot) 2 tab PO HSPRN PRN PRN Reason: Constipation- 1ST line Last Admin: 12/30/17 18:09 Dose: 2 tab Senna/Docusate Sodium (Senokot S) 1 tab PO BID [facility] Last Admin: 01/09/18 10:40 Dose: 1 tab Sodium Chloride (Flush - Normal Saline) 10 ml IVF PRN PRN PRN Reason: Saline Flush Last Admin: 01/08/18 13:01 Dose: 10 ml Sodium Chloride ([place] Nasal [place] 0.65%) 0 ml EA NARE TID PRN PRN Reason: Nasal Congestion Torsemide (Demadex) 100 mg PO 1100 [facility] Last Admin: 01/08/18 13:05 Dose: 100 mg Tramadol HCl (Ultram) 50 mg PO Q6H PRN PRN Reason: Moderate Pain (4-6) Last Admin: 01/06/18 23:53 Dose: 50 mg Tramadol HCl (Ultram) 100 mg PO Q6H PRN PRN Reason: Pain 1-5 Last Admin: 01/08/18 23:21 Dose: 100 mg Trospium (Trospium) 20 mg PO HS [facility] Last Admin: 01/08/18 20:57 Dose: 20 mg Vitamin B Complex/Vit C/Folic Acid (Nephro-Mariluz Tablet) 1 tab PO DAILY [facility] Last Admin: 01/09/18 10:36 Dose: 1 tab
[2018-01-09] MEDS: Torsemide 100 MG TAB PO SCH (11:54)
--- NOTE | 2018-01-09 13:27 | PRG ---
DATE OF SERVICE: 02/06/2018 SUBJECTIVE: This is an 87-year-old gentleman being seen for acute kidney injury. The patient denies any nausea, vomiting or chest pain. PHYSICAL EXAMINATION: GENERAL: Patient is awake, alert. VITAL SIGNS: Afebrile, pulse 80, breathing at 16, blood pressure is 145/65. HEAD/NECK: Normocephalic. Atraumatic. EYES: EOMI. No deformity. EARS: Clear. No ulcers. NOSE: Intact. No lesions. MOUTH: Clear. No discharge. THROAT: Clear. No exudate. LUNGS: Clear. No crackles. CARDIAC: S1, S2. No rub. ABDOMEN: Benign. BS+. GENITALIA/RECTUM: Shabazz absent. BACK/EXTREMITIES: Edema 0+ Ulcer- NEUROLOGICAL: Alert and motor intact. SKIN: Rash- Bruise- LYMPHATICS: Edema- Ulcer- LABORATORY DATA: Show hemoglobin 10.9 and potassium 3.5. ASSESSMENT AND PLAN: 1. Stage 6 chronic kidney disease. We will plan dialysis. 2. Hypertension, stable. 3. Anemia, stable. 4. Medications based on glomerular filtration rate are appropriate.
--- NOTE | 2018-01-09 17:33 | PDOC.CTH ---
Cardiology Progress Note - Subjective No new issues. HD started. - Objective Vital Signs Temp Pulse Pulse Pulse Resp BP BP 01/09/18 15:33 97.6 F 79 14 01/09/18 11:48 98.0 F 80 17 01/09/18 08:55 84 94 138/61 109/55 L 01/09/18 08:45 98.1 F 80 17 01/09/18 07:30 98.1 F 80 17 BP Pulse Ox Pulse Ox 01/09/18 15:33 131/66 99 01/09/18 11:48 145/65 H 96 01/09/18 08:55 98 01/09/18 08:45 96 01/09/18 07:30 142/60 H 96 Admit Weight 234 lb Weight 224 lb 4 oz 01/08/18 01/09/18 01/10/18 06:59 06:59 06:59 Intake Total 600 1090 Output Total 1050 1275 Balance -450 -185 - Physical Examination General/Neuro: alert & oriented x3, NAD Neck: no JVD present Lungs: unlabored respirations Heart: RRR Abdomen: NT/ND Extremities: + edema B (1+) - Telemetry Telemetry Rhythm: NSR - Labs Result Diagrams: 01/07/18 05:51 01/09/18 05:14 Troponin/CKMB CK-MB (CK-2) 3.3 ng/mL (0-6.6) 12/27/17 22:53 Troponin I 0.071 ng/mL (< 0.028) H 01/02/18 20:13 - Assessment/Plan 1. 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 Non-ischemic CM, S/P AICD. 3. CKD Stage 5 4. HTN 5. Hypothyroidism 6. Hx of PE on coumadin PLAN:L - HD started and tolerated well. - BP a little high now, will continue BB, start ACEI low dose.
[2018-01-09] MEDS: TROSPIUM 20 MG TABLET PO SCH (21:57)
[2018-01-10] MEDS: Levothyroxine Sodium 88 MCG TAB PO SCH (05:38)
[2018-01-10 06:12] LABS: Hemoglobin 9.5 g/dL (14.0-18.0); Platelet Count 146 thou/uL (130-400)
[2018-01-10 06:26] LABS: Anion Gap 13 mmol/L (10-20); BUN (Urea Nitrogen) 49 mg/dL (8.4-25.7); Calc. Creatinine Clearance 26 mL/min (70-130); Calcium 8.8 mg/dL (7.8-10.44); Carbon Dioxide 31 mmol/L (23-31); Chloride 98 mmol/L (98-107); Estimated GFR-MDRD 22; Glucose 137 mg/dL (83-110); Potassium 3.3 mmol/L (3.5-5.1); Sodium 139 mmol/L (136-145)
[2018-01-10 07:25] VITALS: TEMP 98.1
[2018-01-10] MEDS ORDERED: Potassium Chloride 10 MEQ TAB PO SCH ×2 (08:30→17:00)
[2018-01-10] MEDS ORDERED: Lisinopril 2.5 MG TAB PO SCH (09:00)
[2018-01-10] MEDS ORDERED: Heparin 10,000 UNITS/ 10 ML VIAL ONE (09:00)
--- NOTE | 2018-01-10 11:22 | PRG ---
DATE OF SERVICE: 01/10/2018 SUBJECTIVE: An 87-year-old gentleman being seen for end-stage renal disease. The patient denies any nausea, vomiting or chest pain. OBJECTIVE: GENERAL: The patient is awake, alert. VITAL SIGNS: Afebrile, pulse 75, breathing at 16, blood pressure 139/64. OBJECTIVE: See above. Awake, alert, in no acute distress. GENERAL APPEARANCE AND MENTAL STATUS: Fair. HEAD/NECK: Normocephalic. Atraumatic. EYES: EOMI. No deformity. EARS: Clear. No ulcers. NOSE: Intact. No lesions. MOUTH: Clear. No discharge. THROAT: Clear. No exudate. LUNGS: Clear. No crackles. CARDIAC: S1, S2. No rub. ABDOMEN: Benign. BS+. GENITALIA/RECTUM: Shabazz absent. BACK/EXTREMITIES: Edema 0+ Ulcer- NEUROLOGICAL: Alert and motor intact. SKIN: Rash- Bruise- LYMPHATICS: Edema- Ulcer- LABORATORY DATA: Show hemoglobin 9.5, creatinine 2.7. ASSESSMENT AND RECOMMENDATIONS: 1. Stage 6 chronic kidney disease, we will plan hemodialysis. 2. Hypertension, stable. 3. Anemia, stable. 4. Hypokalemia. We will dialyze with a 4K bath and recommend high potassium diet. 6. Edema and anasarca. Continue dialysis.
[2018-01-10] MEDS: busPIRone HCl 10 MG TAB PO SCH ×2 (11:48→15:19)
[2018-01-10] MEDS: Cephalexin 250 MG CAP PO SCH ×2 (11:49→15:19)
[2018-01-10 11:54] VITALS: BMI 33.2
[2018-01-10] MEDS: Carvedilol 3.125 MG TAB PO SCH (12:05)
[2018-01-10] MEDS: Famotidine 20 MG TAB PO SCH (12:06)
[2018-01-10] MEDS: Finasteride 5 MG TAB PO SCH (12:06)
[2018-01-10] MEDS: Cyanocobalamin (Vitamin B-12) 1,000 MCG TAB PO SCH (12:06)
[2018-01-10] MEDS: Hydrocortisone 10 mg Tablet PO SCH (12:07)
[2018-01-10] MEDS: Folic Acid/Vit B Comp W-C PO SCH (12:07)
[2018-01-10] MEDS: Gabapentin 100 MG CAP PO SCH (12:07)
[2018-01-10] MEDS: Polyethylene Glycol 3350 17 GM Packet PO SCH (12:08)
[2018-01-10] MEDS: Torsemide 100 MG TAB PO SCH (12:08)
[2018-01-10] MEDS: Senokot S 8.6-50 MG TAB PO SCH (12:08)
[2018-01-10] MEDS ORDERED: Warfarin Sodium 5 MG TAB PO SCH (14:00)
[2018-01-10] MEDS ORDERED: WARFARIN PO PRN (14:00)
[2018-01-10 14:56] LABS: Hemoglobin 10.1 g/dL (14.0-18.0); Platelet Count 155 thou/uL (130-400)
[2018-01-10 15:23] VITALS: BP 120/58
--- NOTE | 2018-01-11 10:26 | DIS ---
DATE OF DISCHARGE: 01/10/2018 DISCHARGE DISPOSITION: To inpatient rehabilitation. The patient was seen and examined on the day of discharge, denies any new complaints. BRIEF HOSPITAL COURSE: The patient is an 87-year-old male with cardiomyopathy, pulmonary embolism, a nd atrial fibrillation on anticoagulation, who presented to the emergency room with left leg pain. Kyle silverio refer to the history and physical dated 12/28/[address] Stokes for further details. The patient was admitted to the hospital with a diagnosis of acute kidney injury with congestive hear t failure exacerbation as well as left leg showed cellulitis. He was started on antibiotics along wi th diuretics. He was seen by multiple consultants including Cardiology and Nephrology. On admission , there was also Gastroenterology consult placed for worsening abdominal discomfort that was attribut ed to congestive heart failure with ascites. Due to progressively worsening volume overload as well as worsening kidney function, he has been started on dialysis. He underwent dialysis on the day of d ischarge. I discussed with Nephrology, who is okay with him going to inpatient rehabilitation. Card iology has also cleared the patient on the day of discharge. Anticoagulation will be resumed. It wa s on hold for dialysis access. His echocardiogram showed ejection fraction 50% to 55% with moderate mitral regurgitation. Blood cultures and urine cultures have been negative. Antibiotics have been d iscontinued on the day of discharge. FINAL DIAGNOSES: 1. Acute on chronic systolic as well as diastolic heart failure exacerbation, refractory to diuresis , started on dialysis. 2. Left lower extremity cellulitis, completed antibiotics. 3. Acute kidney injury on chronic kidney disease stage 4. 4. History of automatic implantable cardioverter defibrillator. 5. History of atrial fibrillation and pulmonary embolism restarted on anticoagulation on the day of discharge. Anticoagulation was hold per General Surgery. 6. Hypokalemia. 7. Deconditioning. 8. Benign prostatic hypertrophy. 9. Hypothyroidism. 10. Elevated troponins secondary to congestive heart failure. 11. Thrombocytopenia. 12. Obesity with a BMI of 35. 13. Chronic adrenal insufficiency on hydrocortisone. 14. History of pulmonary embolism. DISCHARGE MEDICATIONS: BuSpar 10 mg 3 times a day, finasteride 5 mg daily, gabapentin 100 mg twice a day as needed, hydrocortisone 30 mg twice a day, levothyroxine 88 mcg daily, omeprazole 20 mg daily, potassium chloride 10 mEq daily, VESIcare 5 mg daily, Coumadin as directed, carvedilol 6.25 b.i.d., vitamin B12, lisinopril 2.5 mg daily, torsemide 100 mg daily. Total time coordinating the discharge of this patient was 38 minutes. Plan of care was discussed with the patient. He stated understanding. Risk of stroke due to subther apeutic INR was discussed with the patient. He stated understanding. Again, the anticoagulation was held due to dialysis procedures.
[2018-01-11] MEDS ORDERED: Warfarin Sodium 5 MG TAB PO SCH (17:00)
--- NOTE | 2018-01-12 12:46 | PQF ---
BUBBA BUENROSTROSELENA [id number] Pt was followed and managed by my colleagues, they have more knowledge about hospital course and final diagnosis, and will be able to better answer your query,thank you CLINICAL DOCUMENTATION CLARIFICATION FORM: POST DISCHARGE Addendum to original discharge summary date: ____ Late entry note date: __ DATE: 01/12/18 ATTN: Please exercise your independent, professional judgment in responding to the clarification form. Clinical indicators are provided on the bottom of this form for your review Please check appropriate box(s) to clarify if the following diagnosis has been ruled in or ruled out: Aspiration Pneumonia _(CDI/Coding list diagnosis here) [ ] Ruled in diagnosis [ ] Continue to treat [ ] Resolved [ ] Ruled out diagnosis [ ] Cannot rule out diagnosis [ ] Other diagnosis [ ] Unable to determine In addition, please specify: Present on Admission (POA): [ ] Yes [ ] No [ ] Unable to determine For continuity of documentation, please document condition throughout progress notes and discharge summary. Thank You. CLINICAL INDICATORS - SIGNS / SYMPTOMS / LABS To support the diagnosis Difficulty swallowing Aspiration precaution RISK FACTORS To support diagnosis Acute CHF TREATMENTS To support diagnosis MTDD
== END 2018-01-10 18:08 | DRG 177 ==
LOC: ERS 22:33 → 2NO 12-28 02:47
PROVIDERS: ADMIT Hospitalist; ATTEND Hospitalist
PROC: 5A1D70Z Performance of Urinary Filtration, Intermittent, Less than 6 Hours Per Day (ICD-10-PCS; principal; 2017-12-28)
PROC: 05HM33Z Insertion of Infusion Device into Right Internal Jugular Vein, Percutaneous Approach (ICD-10-PCS; 2018-01-07)
PROC: B513YZA Fluoroscopy of Right Jugular Veins using Other Contrast, Guidance (ICD-10-PCS; 2018-01-07)
DX: J69.0 Pneumonitis due to inhalation of food and vomit (principal); I50.43 Acute on chronic combined systolic (congestive) and diastolic (congestive) heart failure; N18.6 End stage renal disease; N17.9 Acute kidney failure, unspecified; L03.116 Cellulitis of left lower limb; E87.3 Alkalosis; E87.1 Hypo-osmolality and hyponatremia; E23.0 Hypopituitarism; I42.9 Cardiomyopathy, unspecified; E27.40 Unspecified adrenocortical insufficiency; I13.2 Hypertensive heart and chronic kidney disease with heart failure and with stage 5 chronic kidney disease, or end stage renal disease; E87.6 Hypokalemia; Z86.711 Personal history of pulmonary embolism; I48.91 Unspecified atrial fibrillation; Z95.810 Presence of automatic (implantable) cardiac defibrillator; N40.0 Benign prostatic hyperplasia without lower urinary tract symptoms; E03.9 Hypothyroidism, unspecified; D69.6 Thrombocytopenia, unspecified; Z68.35 Body mass index [BMI] 35.0-35.9, adult; Z79.899 Other long term (current) drug therapy; Z99.2 Dependence on renal dialysis; Z88.1 Allergy status to other antibiotic agents; Z88.2 Allergy status to sulfonamides; K59.00 Constipation, unspecified; K21.9 Gastro-esophageal reflux disease without esophagitis; E66.01 Morbid (severe) obesity due to excess calories; E78.5 Hyperlipidemia, unspecified; Z79.01 Long term (current) use of anticoagulants; I73.9 Peripheral vascular disease, unspecified
CPT/HCPCS: 36415; 36416; 70450; 71045; 71250; 74019; 74230; 80048; 80053; 80069; 80202; 81003; 82553; 82570; 82728; 83540; 83550; 83735; 83880; 84156; 84443; 84484; 85014; 85018; 85025; 85049; 85379; 85610; 85730; 86704; 86706; 86803; 87040; 87086; 87340; 90935; 93005; 93010; 93306; 93970; 94760; 96365; 96375; A4216; C1752; C1769; G0257; G0365; G8978-GP-CM; G8979-GP-CJ; G8987-GO-CK; G8988-GO-CJ; G8996-GN-CI; G8996-GN-CK; G8997-GN-CI; G8997-GN-CJ; J0670; J0696; J1644; J1940; J2250; J2270; J2704; J2720; J3010; J3370; J3430; J3490; J7050

== ENCOUNTER 2018-01-31 17:11 | Inpatient (IN) | payer MEDICARE, OTHER ==
[2018-01-31 18:13] LABS: #Eosinphils 0.1 thou/uL (0.0-0.7); #Monocytes 0.6 thou/uL (0.11-0.59); #Neutrophils 6.1 thou/uL (1.40-6.50); %Basophils 0.2 % (0.0-1.0); %Lymphocytes 12.9 % (21.0-51.0); %Monocytes 7.1 % (0.0-10.0); %Neutrophils 78.9 % (42.0-75.0); Hemoglobin 9.2 g/dL (14.0-18.0); Mean Corpuscular HGB CONC 33.5 g/dL (32.0-36.0); Mean Corpuscular Volume 98.3 fL (78.0-98.0); Platelet Count 145 thou/uL (130-400); RBC Distribution Width 14.4 % (11.5-14.5); White Blood Cell (WBC) Count 7.8 thou/uL (4.8-10.8)
[2018-01-31 18:34] LABS: ALT (SGPT) 18 U/L (8-55); AST (SGOT) 16 U/L (5-34); Albumin 4.1 g/dL (3.4-4.8); Alkaline Phosphatase 87 U/L (40-150); Anion Gap 16 mmol/L (10-20); BUN (Urea Nitrogen) 47 mg/dL (8.4-25.7); Bilirubin, Total 0.6 mg/dL (0.2-1.2); Calc. Creatinine Clearance 0 mL/min (70-130); Calcium 9.5 mg/dL (7.8-10.44); Carbon Dioxide 30 mmol/L (23-31); Chloride 97 mmol/L (98-107); Estimated GFR-MDRD 24; Globulin 2.6 g/dL (2.4-3.5); Glucose 156 mg/dL (83-110); Potassium 3.6 mmol/L (3.5-5.1); Protein, Total 6.7 g/dL (5.8-8.1); Sodium 139 mmol/L (136-145)
[2018-01-31 20:06] LABS: Bilirubin Negative (Negative); Blood, Urine Negative (Negative); Clarity CLEAR (Clear); Glucose, Urine (Dipstick) Negative (Negative); Leukocyte Negative (Negative); Nitrite Negative (Negative); Protein, Urine (Dipstick) Negative (Neg-Trace); Specific Gravity, Urine 1.013 (1.002-1.036); Urobilinogen 0.2 mg/dL (0.2-1.0); pH, Urine 5.5 (5.0-9.0)
--- NOTE | 2018-01-31 20:07 | RAD ---
CHEST ONE VIEW: History: Hypotension. Dialysis patient. Comparison: 01-21-18 FINDINGS: Portable upright chest demonstrates a stable left sided defibrillator and right sided HemoSplit dialy sis catheter. Atherosclerosis of the aorta. Normal cardiac silhouette. Pulmonary vessels are within n ormal limits. Costophrenic angles are clear. No consolidation or mass. No pneumothorax or osseous abn ormalities. IMPRESSION: Atherosclerosis. No acute cardiopulmonary process. POS: PPP
[2018-01-31 21:50] VITALS: BMI 31.3
[2018-01-31] MEDS ORDERED: Ondansetron ODT 4 MG TAB SL PRN (21:57)
[2018-01-31] MEDS ORDERED: Acetaminophen 325 MG TAB PO PRN (21:57)
[2018-01-31] MEDS ORDERED: Ondansetron HCl/PF 4 MG/2 ML Vial IVP PRN (21:57)
[2018-02-01] MEDS ORDERED: Bisacodyl 5 MG TAB PO PRN (01:20)
--- NOTE | 2018-02-01 02:20 | CON ---
DATE OF CONSULTATION: 01/31/2018 NEPHROLOGY CONSULTATION REASON FOR CONSULTATION: End-stage renal disease, bilateral lower extremity swelling. HISTORY OF PRESENT ILLNESS: This is a very complex 87-year-old gentleman, who was recently initiated on hemodialysis due to worsening dyspnea as well as chronic edema. [facility] was noted to have increasing swelling. The patient denies any change in shortne ss of breath. Denies any chest pain. PAST MEDICAL HISTORY: Significant for hypertension; nephrolithiasis; panhypopituitarism; PE; atrial fibrillation; left leg pain; DVT; acute kidney injury; chronic kidney disease, stage 4, for many year s; tonsillectomy; pacemaker. SOCIAL AND ECONOMIC HISTORY: No alcohol or drug use. FAMILY HISTORY: Negative for ESRD. ALLERGIES: Reviewed. HOME MEDICATIONS: List reviewed. REVIEW OF SYSTEMS: A 15-point review of systems was performed and was negative except for the positi ves noted above. General: Weakness. Head: Headache. Neck: No swelling or lumps. Nose: No epis taxis or discharge. Eyes: No diplopia or pain. Respiratory: Dyspnea. Cardiovascular: Chest pain . Gastrointestinal: Nausea. 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 Musculoskeletal: No joint pain. Neuropsychiatri c systems: No suicidal ideation. No ideation. Skin: Denies any rash or ulcer. Constitutional: No fever or chills. PHYSICAL EXAMINATION: GENERAL: The patient is awake and alert. VITAL SIGNS: Afebrile, pulse 97, breathing at 16, blood pressure was 125/68. GENERAL APPEARANCE AND MENTAL STATUS: Fair. HEAD/NECK: Normocephalic. Atraumatic. EYES: EOMI. No deformity. EARS: Clear. No ulcers. NOSE: Intact. No lesions. MOUTH: Clear. No discharge. THROAT: Clear. No exudate. LUNGS: Clear. No crackles. CARDIAC: S1, S2. No rub. ABDOMEN: Benign. BS+. GENITALIA/RECTUM: Shabazz absent. BACK/EXTREMITIES: Lower extremities have 4+ edema. NEUROLOGICAL: Alert and motor intact. SKIN: Rash- Bruise-. LYMPHATICS: Edema- Ulcer-. LABORATORY DATA: Show potassium 3.6. ASSESSMENT AND RECOMMENDATIONS: 1. Stage 6 chronic kidney disease, plan hemodialysis in the morning, slow ultrafiltration. 2. Anemia, stable. 3. Uremia, stable. We would recommend continuing Lasix. Overall, prognosis remains very poor because of hypotension with dialysis. The patient has aortic as well as mitral regurgitation. If his preload has decreased, the patient becomes hypotensive. So, a t this point in time, we will discuss a gradual dialysis and see if that can help him, otherwise hosp ice would be an option.
--- NOTE | 2018-02-01 02:28 | HP ---
CHIEF COMPLAINT: Hypotension. HISTORY OF PRESENT ILLNESS: This is an 87-year-old male with past medical history of renal colic CKD disease on hemodialysis, cardiomyopathy, panhypopituitarism, PE, atrial fibrillation, heart failure presenting with hypotension. Per patient's chart and medical staff, patient was at dialysis on the d ay of admission and during dialysis, patient was hypotensive; therefore, full dialysis was not able t o be done. Patient was then sent to the ED to be evaluated and then to possible have slow dialysis t omorrow. Patient reported cough, dizziness, and weakness, which stated that started on the day of ad mission. Patient was recently discharged from the hospital for pneumonia and that was at rehabilitati on. REVIEW OF SYSTEMS: Positive for cough, dizziness, weakness, and otherwise as documented in the HPI. All other systems were reviewed and are negative. PAST MEDICAL HISTORY: Cardiomyopathy, arrhythmias such as atrial fibrillation, renal failure on hemo dialysis, CHF. FAMILY HISTORY: Reviewed and noncontributory. PAST SURGICAL HISTORY: Tumor removal from head, status post pacemaker. PSYCHIATRIC HISTORY: No previous psych history. SOCIAL HISTORY: Patient is a former tobacco smoker, quit past year. Patient denies ethanol use. Wojciech pitt denies any illicit drug use. Patient lives at home. Patient will have caretakers at home. ALLERGIES: Patient is allergic to CIPROFLOXACIN, IODINE, MACRODANTIN, SULFA DRUGS. CURRENT MEDICATION: Carvedilol 3.125, buspirone 10 mg, gabapentin 100 mg, metolazone 5 mg, levothyro xine 88 mcg, [place] 5 mg, warfarin 4 mg on , Tuesdays, Saturdays and Sundays, ranitidine 150 mg b.i.d., meclizine 25 mg, torsemide 100 mg. PHYSICAL EXAMINATION: VITAL SIGNS: Blood pressure 106/42, pulse is 89, respiratory rate of 12, temperature of 97.6. GENERAL APPEARANCE: Patient is lying on his left side, does not appear to be in any acute distress. Patient is able to speak in full sentences. HEENT: Normocephalic, atraumatic. Pupils are equally round and reactive to light. Extraocular move ments are intact. No scleral icterus. NECK: Supple, no JVD. Trachea is midline. RESPIRATORY: Clear to auscultation bilaterally. No wheezing, no rales, no rhonchi appreciated. CARDIOVASCULAR: Positive S1, S2, regular rate and rhythm. No murmurs, no gallops or rubs appreciate d. ABDOMEN: Obese abdomen, positive bowel sounds in all quadrants. No distention, no masses, no reboun d, no guarding. EXTREMITIES: Upper extremities 5/5 upper extremity strength. Good pulses bilaterally. Lower extrem ity, patient do have lymphedema noted. Otherwise, patient do have good pulses at the dorsalis pedis. NEUROLOGIC: Cranial nerves II-XII grossly intact. No neurologic deficit noted. SKIN: Warm, dry, and intact. PSYCHIATRIC: Patient is alert, oriented x3, not in acute distress at this time. Patient has normal affect. IMAGING: EKG showed paced rhythm. Chest x-ray showed atherosclerosis, no acute cardiopulmonary proc ess. LABORATORY DATA: Shows WBC 7.8, hemoglobin 9.2, hematocrit 27.5, MCV is 98.3, platelet count of 145. Sodium 139, potassium 3.6, chloride 97, carbon dioxide of 30, BUN is 47, creatinine is 2.52, and gl ucose of 156, calcium of 9.5. AST 16, ALT 18, alkaline phosphatase of 87. Urinalysis negative. ASSESSMENT AND PLAN: This is an 87-year-old male being admitted for hypotension. Patient is on ster oids at home. We will start the patient on steroids and we will plan for dialysis tomorrow since mason morataya did not complete dialysis due to hypotension. [employer] has been consulted before I spoke to the vocational teacher. Per vocational teacher, patient can receive Lasix IV and reduced slow dialysis tomorrow . 1. Renal failure on hemodialysis. We will complete dialysis tomorrow at this point, we will give wojciech pitt Lasix due to the patient having some lymphedema at the lower extremities bilaterally. 2. History of hypothyroidism. We will continue patient on home medication. 3. Atrial fibrillation. We will continue patient on warfarin. 4. Panhypopituitarism. We will continue patient on his home dose of steroids. 5. Deep venous thrombosis and gastrointestinal prophylaxis. We will do warfarin. We will do Pepcid .
[2018-02-01] MEDS: Levothyroxine Sodium 88 MCG TAB PO SCH ×2 (04:57→04:58)
[2018-02-01 05:05] LABS: INR-International Normal Ratio 1.1; Prothrombin Time 14.5 SEC (12.0-14.7)
[2018-02-01 05:06] LABS: #Eosinphils 0.2 thou/uL (0.0-0.7); #Lymphocytes 1.8 thou/uL (1.20-3.40); #Monocytes 0.5 thou/uL (0.11-0.59); #Neutrophils 3.9 thou/uL (1.40-6.50); %Basophils 0.5 % (0.0-1.0); %Eosinophils 2.5 % (0.0-10.0); %Lymphocytes 27.6 % (21.0-51.0); %Monocytes 8.4 % (0.0-10.0); Hemoglobin 8.3 g/dL (14.0-18.0); Mean Corpuscular Hemoglobin 33.3 pg (27.0-31.0); Mean Corpuscular Volume 98.2 fL (78.0-98.0); Mean Platelet Volume 8.5 fL (7.4-10.4); Platelet Count 122 thou/uL (130-400); RBC Distribution Width 14.6 % (11.5-14.5); Red Blood Cell (RBC) Count 2.47 mill/uL (4.70-6.10); White Blood Cell (WBC) Count 6.5 thou/uL (4.8-10.8)
[2018-02-01 05:11] LABS: Anion Gap 13 mmol/L (10-20); BUN (Urea Nitrogen) 55 mg/dL (8.4-25.7); Calc. Creatinine Clearance 27 mL/min (70-130); Calcium 9.4 mg/dL (7.8-10.44); Carbon Dioxide 31 mmol/L (23-31); Chloride 100 mmol/L (98-107); Estimated GFR-MDRD 23; Glucose 106 mg/dL (83-110); Potassium 3.1 mmol/L (3.5-5.1); Sodium 141 mmol/L (136-145)
[2018-02-01] MEDS: busPIRone HCl 10 MG TAB PO SCH ×3 (08:35→20:14)
[2018-02-01] MEDS: TROSPIUM 20 MG TABLET PO SCH (08:36)
[2018-02-01] MEDS: Famotidine/PF 20 mg/2ml Vial SLOW IVP SCH (08:36)
[2018-02-01] MEDS: Folic Acid/Vit B Comp W-C PO SCH (08:36)
[2018-02-01] MEDS: Finasteride 5 MG TAB PO SCH (08:36)
[2018-02-01] MEDS: Hydrocortisone 10 mg Tablet PO SCH ×2 (08:36→20:14)
[2018-02-01] MEDS: Lisinopril 2.5 MG TAB PO SCH (08:36)
[2018-02-01] MEDS ORDERED: Heparin 5,000 UNITS/ML VIAL SC SCH (09:00)
--- NOTE | 2018-02-01 11:47 | PDOC.PN ---
- Subjective Encounter Start Date: 02/01/18 Encounter Start Time: 08:20 Subjective: is getting HD, no sob -: has finished around 21/2 hrs of HD with BP holding up -: has his leg elevated though during HD now - Objective Resuscitation Status: Resuscitation Status FULL:Full Resuscitation MAR Reviewed: Yes Vital Signs & Weight: Vital Signs (12 hours) Temp Pulse Resp BP Pulse Ox 02/01/18 08:36 84 02/01/18 04:44 98.0 F 84 20 107/62 99 02/01/18 00:01 97 02/01/18 00:00 97.7 F 83 20 126/69 97 Weight Weight 218 lb 4.122 oz Result Diagrams: 02/01/18 04:39 02/01/18 04:39 Phys Exam - Physical Examination HEENT: PERRLA, moist MMs Neck: no JVD, supple Respiratory: no wheezing, no rales Cardiovascular: RRR, no significant murmur Gastrointestinal: soft, no distention, positive bowel sounds Musculoskeletal: pulses present, edema present Neurological: non-focal, moves all 4 limbs Dx/Plan (1) ESRD (end stage renal disease) on dialysis Code(s): N18.6 - END STAGE RENAL DISEASE; Z99.2 - DEPENDENCE ON RENAL DIALYSIS Status: Acute (2) BPH (benign prostatic hyperplasia) Code(s): N40.0 - BENIGN PROSTATIC HYPERPLASIA WITHOUT LOWER URINRY TRACT SYMP Status: Chronic Qualifiers: Lower urinary tract symptom detail: unspecified (3) Chronic anemia Code(s): D64.9 - ANEMIA, UNSPECIFIED Status: Chronic (4) Combined systolic and diastolic congestive heart failure Code(s): I50.40 - UNSP COMBINED SYSTOLIC AND DIASTOLIC (CONGESTIVE) HRT FAIL Status: Chronic Comment: continue current management. 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 (9) Obesity Code(s): E66.9 - OBESITY, UNSPECIFIED Status: Chronic Qualifiers: Obesity classification: adult class 1 (BMI 30 - 34.9) (10) Hypotension Status: Acute Qualifiers: Hypotension type: unspecified hypotension type Qualified Code(s): I95.9 - Hypotension, unspecified - Plan is getting HD now -: watch for BP post HD, might need midodrine -: is on coumadin, buspar, proscar -: continue synthroid and hydrocortisone as before -: Need to mobilize, not sure if he can, atleast oob to chair * . Review of Systems - Medications/Allergies Allergies/Adverse Reactions: Allergies Allergy/AdvReac Type Severity Reaction Status Date / Time ciprofloxacin HCl Allergy Verified 07/13/17 21:32 [From Cipro] iodine Allergy Verified 07/13/17 21:32 nitrofurantoin Allergy Verified 07/13/17 21:32 macrocrystalline [From Macrodantin] Sulfa (Sulfonamide Allergy Verified 07/13/17 21:32 Antibiotics) Medications: Current Medications Bisacodyl (Dulcolax) 10 mg PO DAILYPRN PRN PRN Reason: Constipation Buspirone HCl (Buspar) 10 mg PO TID [facility] Last Admin: 02/01/18 08:35 Dose: Not Given Famotidine (Pepcid) 20 mg SLOW IVP QAM [facility] Last Admin: 02/01/18 08:36 Dose: Not Given Finasteride (Proscar) 5 mg PO DAILY [facility] Last Admin: 02/01/18 08:36 Dose: Not Given Gabapentin (Neurontin) 100 mg PO BIDPRN PRN PRN Reason: Pain Hydrocortisone (Cortef) 30 mg PO BID [facility] Last Admin: 02/01/18 08:36 Dose: Not Given Levothyroxine Sodium (Synthroid) 88 mcg PO 0600 [facility] Last Admin: 02/01/18 04:58 Dose: 88 mcg Lisinopril (Zestril) 2.5 mg PO DAILY [facility] Last Admin: 02/01/18 08:36 Dose: Not Given Sodium Chloride (Flush - Normal Saline) 10 ml IVF Q12HR [facility] Last Admin: 02/01/18 08:36 Dose: Not Given Sodium Chloride (Flush - Normal Saline) 10 ml IVF PRN PRN PRN Reason: Saline Flush Trospium (Trospium) 20 mg PO DAILY [facility] Last Admin: 02/01/18 08:36 Dose: Not Given Vitamin B Complex/Vit C/Folic Acid (Nephro-Mariluz Tablet) 1 tab PO DAILY [facility] Last Admin: 02/01/18 08:36 Dose: Not Given Warfarin Sodium (Coumadin) 5 mg PO MoWeFr@1700 [facility] Warfarin Sodium (Coumadin) 4 mg PO SuTuThSa@1700 [facility]
--- NOTE | 2018-02-01 14:26 | PRG ---
DATE OF SERVICE: 02/01/2018 SUBJECTIVE: An 87-year-old gentleman being seen for end-stage renal disease. Patient denies any cedric sea, vomiting or chest pain. PHYSICAL EXAMINATION: GENERAL: Patient is awake, alert. VITAL SIGNS: Afebrile, pulse 80, breathing 16, blood pressure 105/55. HEAD/NECK: Normocephalic. Atraumatic. EYES: EOMI. No deformity. EARS: Clear. No ulcers. NOSE: Intact. No lesions. MOUTH: Clear. No discharge. THROAT: Clear. No exudate. LUNGS: Clear. No crackles. CARDIAC: S1, S2. No rub. ABDOMEN: Benign. BS+. GENITALIA/RECTUM: Shabazz absent. BACK/EXTREMITIES: Edema 0+ Ulcer- NEUROLOGICAL: Alert and motor intact. SKIN: Rash- Bruise- LYMPHATICS: Edema- Ulcer- LABORATORY DATA: Show hemoglobin 8.3 and potassium 3.1. ASSESSMENT AND RECOMMENDATIONS: 1. Stage 6 chronic kidney disease with massive edema and dyspnea. We will plan dialysis for 5 hours with slow ultrafiltration and low temperatures so as to avoid hypertension. 2. Anemia, stable. 3. Medications based on GFR are appropriate. Overall, prognosis is poor due to the fact patient has moderate aortic and mitral regurgitation which causes decreased effective arterial blood volume, edema and unable to tolerate dialysis. Overall, p rognosis remains poor. No family member was available. Risks versus benefits of dialysis were discu ssed including no dialysis. The patient opted to continue renal replacement therapy.
[2018-02-01] MEDS: Gabapentin 100 MG CAP PO PRN (14:29)
[2018-02-01] MEDS: Warfarin Sodium 2 MG TAB PO SCH (16:58)
[2018-02-01] MEDS: Acetaminophen 325 MG TAB PO PRN (21:32)
[2018-02-02 05:59] LABS: INR-International Normal Ratio 1.2; Prothrombin Time 14.8 SEC (12.0-14.7)
[2018-02-02] MEDS: Famotidine/PF 20 mg/2ml Vial SLOW IVP SCH (09:15)
[2018-02-02] MEDS: Folic Acid/Vit B Comp W-C PO SCH (09:15)
[2018-02-02] MEDS: busPIRone HCl 10 MG TAB PO SCH ×3 (09:15→21:16)
[2018-02-02] MEDS: Finasteride 5 MG TAB PO SCH (09:15)
[2018-02-02] MEDS: Hydrocortisone 10 mg Tablet PO SCH ×2 (09:15→21:16)
[2018-02-02] MEDS: TROSPIUM 20 MG TABLET PO SCH (09:16)
[2018-02-02] MEDS: Lisinopril 2.5 MG TAB PO SCH (09:16)
[2018-02-02 09:41] LABS: Hemoglobin 8.4 g/dL (14.0-18.0)
[2018-02-02] MEDS: Gabapentin 100 MG CAP PO PRN ×3 (09:52→22:45)
[2018-02-02 09:58] LABS: Anion Gap 14 mmol/L (10-20); BUN (Urea Nitrogen) 25 mg/dL (8.4-25.7); Calc. Creatinine Clearance 28 mL/min (70-130); Calcium 8.8 mg/dL (7.8-10.44); Carbon Dioxide 29 mmol/L (23-31); Chloride 98 mmol/L (98-107); Estimated GFR-MDRD 24; Glucose 104 mg/dL (83-110); Potassium 4.1 mmol/L (3.5-5.1); Sodium 137 mmol/L (136-145)
--- NOTE | 2018-02-02 10:23 | PDOC.PN ---
- Subjective Encounter Start Date: 02/02/18 Encounter Start Time: 08:00 Subjective: is sitting in chair and eating breakfast -: no sob, feels better - Objective Resuscitation Status: Resuscitation Status FULL:Full Resuscitation MAR Reviewed: Yes Vital Signs & Weight: Vital Signs (12 hours) Temp Pulse Resp BP BP Pulse Ox 02/02/18 09:16 78 02/02/18 07:14 97.7 F 78 16 114/65 97 02/02/18 04:00 97.4 F L 84 20 116/75 100 02/02/18 00:37 97.9 F 89 18 143/66 H 96 Weight Weight 218 lb 4.122 oz I&O: 02/01/18 02/02/18 02/03/18 06:59 06:59 06:59 Intake Total 480 Balance 480 Result Diagrams: 02/02/18 05:14 02/02/18 05:14 Phys Exam - Physical Examination HEENT: PERRLA, moist MMs Neck: no JVD, supple Respiratory: no wheezing, no rales Cardiovascular: RRR, no significant murmur Gastrointestinal: soft, no distention, positive bowel sounds Musculoskeletal: pulses present, edema present Neurological: non-focal, moves all 4 limbs Psychiatric: A&O x 3 Dx/Plan (1) ESRD (end stage renal disease) on dialysis Code(s): N18.6 - END STAGE RENAL DISEASE; Z99.2 - DEPENDENCE ON RENAL DIALYSIS Status: Acute (2) BPH (benign prostatic hyperplasia) Code(s): N40.0 - BENIGN PROSTATIC HYPERPLASIA WITHOUT LOWER URINRY TRACT SYMP Status: Chronic Qualifiers: Lower urinary tract symptom detail: unspecified (3) Chronic anemia Code(s): D64.9 - ANEMIA, UNSPECIFIED Status: Chronic (4) Combined systolic and diastolic congestive heart failure Code(s): I50.40 - UNSP COMBINED SYSTOLIC AND DIASTOLIC (CONGESTIVE) HRT FAIL Status: Chronic Comment: continue current management. 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 (9) Obesity Code(s): E66.9 - OBESITY, UNSPECIFIED Status: Chronic Qualifiers: Obesity classification: adult class 1 (BMI 30 - 34.9) (10) Hypotension Status: Resolved Qualifiers: Hypotension type: unspecified hypotension type Qualified Code(s): I95.9 - Hypotension, unspecified - Plan BP is holding up with no drop post HD yesterday -: watch for another 24hrs -: has chronic LE edema and wears compression stockings at home -: PT eval, ?home with HH or swing/rehab -: decrease buspar to bid, continue hydrocortisone, synthroid, coumadin. * . Review of Systems - Medications/Allergies Allergies/Adverse Reactions: Allergies Allergy/AdvReac Type Severity Reaction Status Date / Time ciprofloxacin HCl Allergy Verified 07/13/17 21:32 [From Cipro] iodine Allergy Verified 07/13/17 21:32 nitrofurantoin Allergy Verified 07/13/17 21:32 macrocrystalline [From Macrodantin] Sulfa (Sulfonamide Allergy Verified 07/13/17 21:32 Antibiotics) Medications: Current Medications Acetaminophen (Tylenol) 650 mg PO Q6H PRN PRN Reason: Headache/Fever or Pain Last Admin: 02/01/18 21:32 Dose: 650 mg Bisacodyl (Dulcolax) 10 mg PO DAILYPRN PRN PRN Reason: Constipation Buspirone HCl (Buspar) 10 mg PO TID [facility] Last Admin: 02/02/18 09:15 Dose: Not Given Famotidine (Pepcid) 20 mg SLOW IVP QAM [facility] Last Admin: 02/02/18 09:15 Dose: Not Given Finasteride (Proscar) 5 mg PO DAILY [facility] Last Admin: 02/02/18 09:15 Dose: Not Given Gabapentin (Neurontin) 100 mg PO BIDPRN PRN PRN Reason: Pain Last Admin: 02/02/18 09:52 Dose: 100 mg Hydrocortisone (Cortef) 30 mg PO BID [facility] Last Admin: 02/02/18 09:15 Dose: Not Given Levothyroxine Sodium (Synthroid) 88 mcg PO 0600 [facility] Last Admin: 02/01/18 04:58 Dose: 88 mcg Lisinopril (Zestril) 2.5 mg PO DAILY [facility] Last Admin: 02/02/18 09:16 Dose: Not Given Sodium Chloride (Flush - Normal Saline) 10 ml IVF Q12HR [facility] Last Admin: 02/02/18 09:16 Dose: Not Given Sodium Chloride (Flush - Normal Saline) 10 ml IVF PRN PRN PRN Reason: Saline Flush Trospium (Trospium) 20 mg PO DAILY [facility] Last Admin: 02/02/18 09:16 Dose: Not Given Vitamin B Complex/Vit C/Folic Acid (Nephro-Mariluz Tablet) 1 tab PO DAILY [facility] Last Admin: 02/02/18 09:15 Dose: Not Given Warfarin Sodium (Coumadin) 5 mg PO MoWeFr@1700 [facility] Warfarin Sodium (Coumadin) 4 mg PO SuTuThSa@1700 [facility] Last Admin: 02/01/18 16:58 Dose: 4 mg
[2018-02-02] MEDS: Midodrine HCl 5 MG TAB PO SCH (11:52)
--- NOTE | 2018-02-02 13:44 | PRG ---
DATE OF SERVICE: 02/02/2018 Mr. Júnior Villa is admitted for volume overload. The patient underwent right arm primary fistula on 01/07/2018, inflow proximal radial artery, outflow, perforating branch antecubital vein, primary outflow cephalic vein secondary outflow basilic vein. The patient's right arm fistula has a go od thrill and bruit. Surgical wound is well healed. There were no complications. I will recommend the patient continue exercise his right arm and see me in the office in about four weeks. Avoid IV a ccess blood draws . I will see him as needed this hospitalization.
[2018-02-02] MEDS ORDERED: Warfarin Sodium 5 MG TAB PO SCH (17:00)
--- NOTE | 2018-02-02 17:49 | PRG ---
DATE OF SERVICE: 02/02/2018 SUBJECTIVE: This is an 87-year-old gentleman being seen for end-stage renal disease. Patient denies any nausea, vomiting or chest pain. PHYSICAL EXAMINATION: GENERAL: Patient is awake, alert. VITAL SIGNS: Afebrile, pulse 75, breathing 16, blood pressure 119/95. HEAD/NECK: Normocephalic. Atraumatic. EYES: EOMI. No deformity. EARS: Clear. No ulcers. NOSE: Intact. No lesions. MOUTH: Clear. No discharge. THROAT: Clear. No exudate. LUNGS: Clear. No crackles. CARDIAC: S1, S2. No rub. ABDOMEN: Benign. BS+. GENITALIA/RECTUM: Shabazz absent. BACK/EXTREMITIES: Edema 0+ Ulcer- NEUROLOGICAL: Alert and motor intact. SKIN: Rash- Bruise- LYMPHATICS: Edema- Ulcer- LABORATORY DATA: Show hemoglobin 8.4, creatinine 2.5. ASSESSMENT AND PLAN: 1. Stage 6 chronic kidney disease. We will plan hemodialysis. 2. Massive edema, plan dialysis. 3. Anemia, stable. 4. Hypokalemia, too low. We will plan dialysis daily for edema.
[2018-02-03 05:16] LABS: INR-International Normal Ratio 1.1; Prothrombin Time 14.7 SEC (12.0-14.7)
[2018-02-03] MEDS: Levothyroxine Sodium 88 MCG TAB PO SCH (05:36)
[2018-02-03] MEDS: Midodrine HCl 5 MG TAB PO SCH (05:38)
--- NOTE | 2018-02-03 09:19 | PRG ---
DATE OF SERVICE: 02/03/2018 SUBJECTIVE: This is an 87-year-old gentleman being seen for end-stage renal disease. The patient de nies any nausea, vomiting or chest pain. PHYSICAL EXAMINATION: GENERAL: Patient is awake, alert. VITAL SIGNS: Afebrile, pulse 60, breathing 16, blood pressure 102/64. OBJECTIVE: See above. Awake, alert, in no acute distress. GENERAL APPEARANCE AND MENTAL STATUS: Fair. HEAD/NECK: Normocephalic. Atraumatic. EYES: EOMI. No deformity. EARS: Clear. No ulcers. NOSE: Intact. No lesions. MOUTH: Clear. No discharge. THROAT: Clear. No exudate. LUNGS: Clear. No crackles. CARDIAC: S1, S2. No rub. ABDOMEN: Benign. BS+. GENITALIA/RECTUM: Shabazz absent. BACK/EXTREMITIES: Edema 0+ Ulcer- NEUROLOGICAL: Alert and motor intact. SKIN: Rash- Bruise- LYMPHATICS: Edema- Ulcer- LABORATORY DATA: Hemoglobin 8.4, creatinine 2.5. ASSESSMENT: 1. Stage 6 chronic kidney disease, plan hemodialysis. 2. Hypertension, stable. 3. Anemia, stable. 4. Congestive heart failure. Continue ultrafiltration every other day.
[2018-02-03] MEDS: busPIRone HCl 10 MG TAB PO SCH ×3 (10:32→20:34)
[2018-02-03] MEDS: Hydrocortisone 10 mg Tablet PO SCH ×2 (10:40→20:34)
[2018-02-03] MEDS: TROSPIUM 20 MG TABLET PO SCH (10:40)
[2018-02-03] MEDS: Folic Acid/Vit B Comp W-C PO SCH (10:41)
[2018-02-03] MEDS: Famotidine 20 MG TAB PO SCH (10:41)
[2018-02-03] MEDS: Finasteride 5 MG TAB PO SCH (10:41)
[2018-02-03] MEDS: Lisinopril 2.5 MG TAB PO SCH (10:42)
--- NOTE | 2018-02-03 13:23 | PDOC.PN ---
- Subjective Encounter Start Date: 02/03/18 Encounter Start Time: 11:40 Subjective: just came back from HD -: no sob or chest pain -: feels a bit weak - Objective Resuscitation Status: Resuscitation Status FULL:Full Resuscitation MAR Reviewed: Yes Vital Signs & Weight: Vital Signs (12 hours) Temp Pulse Resp BP Pulse Ox 02/03/18 11:01 100 02/03/18 10:42 84 02/03/18 04:58 98.0 F 84 20 102/64 99 Weight Weight 218 lb 4.122 oz I&O: 02/02/18 02/03/18 02/04/18 06:59 06:59 06:59 Intake Total 480 600 Output Total 2000 Balance 480 -1400 Result Diagrams: 02/02/18 05:14 02/02/18 05:14 Phys Exam - Physical Examination HEENT: PERRLA, moist MMs Neck: no JVD, supple Respiratory: no wheezing, no rales Cardiovascular: RRR, no significant murmur Gastrointestinal: soft, no distention, positive bowel sounds Musculoskeletal: pulses present, edema present Neurological: non-focal, moves all 4 limbs Psychiatric: A&O x 3 Dx/Plan (1) ESRD (end stage renal disease) on dialysis Code(s): N18.6 - END STAGE RENAL DISEASE; Z99.2 - DEPENDENCE ON RENAL DIALYSIS Status: Chronic (2) BPH (benign prostatic hyperplasia) Code(s): N40.0 - BENIGN PROSTATIC HYPERPLASIA WITHOUT LOWER URINRY TRACT SYMP Status: Chronic Qualifiers: Lower urinary tract symptom detail: unspecified (3) Chronic anemia Code(s): D64.9 - ANEMIA, UNSPECIFIED Status: Chronic (4) Combined systolic and diastolic congestive heart failure Code(s): I50.40 - UNSP COMBINED SYSTOLIC AND DIASTOLIC (CONGESTIVE) HRT FAIL Status: Chronic Qualifiers: Heart failure chronicity: acute on chronic Qualified Code(s): I50.43 - Acute on chronic combined systolic (congestive) and diastolic (congestive) heart failure Comment: continue current management. 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 (9) Obesity Code(s): E66.9 - OBESITY, UNSPECIFIED Status: Chronic Qualifiers: Obesity classification: adult class 1 (BMI 30 - 34.9) (10) Hypotension Status: Acute Qualifiers: Hypotension type: unspecified hypotension type Qualified Code(s): I95.9 - Hypotension, unspecified - Plan PT/OT to mobilize pt as tolerated -: has amb only 6ft with rw, will need swing bed -: is not wearing clemente hose from admission will alert RN -: continue synthroid, hydrocortisone, coumadin, buspar bid -: needs more mobilization, will check cortisol level in am * . 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 Gets hypotensive off and on requiring midodrine prn. Review of Systems - Medications/Allergies Allergies/Adverse Reactions: Allergies Allergy/AdvReac Type Severity Reaction Status Date / Time ciprofloxacin HCl Allergy Verified 07/13/17 21:32 [From Cipro] iodine Allergy Verified 07/13/17 21:32 nitrofurantoin Allergy Verified 07/13/17 21:32 macrocrystalline [From Macrodantin] Sulfa (Sulfonamide Allergy Verified 07/13/17 21:32 Antibiotics) Medications: Current Medications Acetaminophen (Tylenol) 650 mg PO Q6H PRN PRN Reason: Headache/Fever or Pain Last Admin: 02/01/18 21:32 Dose: 650 mg Bisacodyl (Dulcolax) 10 mg PO DAILYPRN PRN PRN Reason: Constipation Buspirone HCl (Buspar) 10 mg PO TID [facility] Last Admin: 02/03/18 10:32 Dose: Not Given Famotidine (Pepcid) 20 mg PO QAM [facility] Last Admin: 02/03/18 10:41 Dose: 20 mg Finasteride (Proscar) 5 mg PO DAILY [facility] Last Admin: 02/03/18 10:41 Dose: 5 mg Gabapentin (Neurontin) 100 mg PO BIDPRN PRN PRN Reason: Pain Last Admin: 02/02/18 09:52 Dose: 100 mg Hydrocortisone (Cortef) 30 mg PO BID [facility] Last Admin: 02/03/18 10:40 Dose: 30 mg Levothyroxine Sodium (Synthroid) 88 mcg PO 0600 [facility] Last Admin: 02/03/18 05:36 Dose: 88 mcg Lisinopril (Zestril) 2.5 mg PO DAILY [facility] Last Admin: 02/03/18 10:42 Dose: Not Given Midodrine (Proamatine) 2.5 mg PO ASDIR [facility] Last Admin: 02/03/18 05:38 Dose: 2.5 mg Sodium Chloride (Flush - Normal Saline) 10 ml IVF Q12HR [facility] Last Admin: 02/03/18 10:32 Dose: Not Given Sodium Chloride (Flush - Normal Saline) 10 ml IVF PRN PRN PRN Reason: Saline Flush Trospium (Trospium) 20 mg PO DAILY [facility] Last Admin: 02/03/18 10:40 Dose: 20 mg Vitamin B Complex/Vit C/Folic Acid (Nephro-Mariluz Tablet) 1 tab PO DAILY [facility] Last Admin: 02/03/18 10:41 Dose: 1 tab Warfarin Sodium (Coumadin) 5 mg PO MoWeFr@1700 [facility] Last Admin: 02/02/18 17:03 Dose: 5 mg Warfarin Sodium (Coumadin) 4 mg PO SuTuThSa@1700 [facility] Last Admin: 02/01/18 16:58 Dose: 4 mg
[2018-02-03] MEDS: Acetaminophen 325 MG TAB PO PRN (14:49)
[2018-02-03] MEDS: Warfarin Sodium 2 MG TAB PO SCH (16:45)
[2018-02-03] MEDS: Gabapentin 100 MG CAP PO PRN (20:34)
[2018-02-04 04:47] LABS: INR-International Normal Ratio 1.2; Prothrombin Time 15.6 SEC (12.0-14.7)
[2018-02-04] MEDS: Levothyroxine Sodium 88 MCG TAB PO SCH (05:30)
[2018-02-04] MEDS: Famotidine 20 MG TAB PO SCH (08:00)
[2018-02-04] MEDS: Hydrocortisone 10 mg Tablet PO SCH (08:00)
[2018-02-04] MEDS: Folic Acid/Vit B Comp W-C PO SCH (08:01)
[2018-02-04] MEDS: busPIRone HCl 10 MG TAB PO SCH ×2 (08:01→14:33)
[2018-02-04] MEDS: Lisinopril 2.5 MG TAB PO SCH (08:01)
[2018-02-04] MEDS: Finasteride 5 MG TAB PO SCH (08:01)
[2018-02-04] MEDS: TROSPIUM 20 MG TABLET PO SCH (08:01)
[2018-02-04 09:47] LABS: #Eosinphils 0.1 thou/uL (0.0-0.7); #Lymphocytes 1.1 thou/uL (1.20-3.40); #Monocytes 0.4 thou/uL (0.11-0.59); #Neutrophils 4.4 thou/uL (1.40-6.50); %Basophils 0.6 % (0.0-1.0); %Eosinophils 1.9 % (0.0-10.0); %Lymphocytes 18.5 % (21.0-51.0); %Monocytes 6.6 % (0.0-10.0); %Neutrophils 72.4 % (42.0-75.0); Hemoglobin 9.1 g/dL (14.0-18.0); Mean Corpuscular HGB CONC 32.9 g/dL (32.0-36.0); Mean Corpuscular Hemoglobin 32.9 pg (27.0-31.0); Mean Corpuscular Volume 99.8 fL (78.0-98.0); Mean Platelet Volume 8.2 fL (7.4-10.4); Platelet Count 120 thou/uL (130-400); RBC Distribution Width 14.6 % (11.5-14.5); Red Blood Cell (RBC) Count 2.78 mill/uL (4.70-6.10); White Blood Cell (WBC) Count 6.1 thou/uL (4.8-10.8)
[2018-02-04 10:07] LABS: Anion Gap 15 mmol/L (10-20); BUN (Urea Nitrogen) 18 mg/dL (8.4-25.7); Calc. Creatinine Clearance 24 mL/min (70-130); Calcium 9.1 mg/dL (7.8-10.44); Carbon Dioxide 25 mmol/L (23-31); Chloride 100 mmol/L (98-107); Estimated GFR-MDRD 20; Glucose 142 mg/dL (83-110); Potassium 4.5 mmol/L (3.5-5.1); Sodium 135 mmol/L (136-145)
[2018-02-04] MEDS: Midodrine HCl 5 MG TAB PO SCH (10:10)
[2018-02-04] MEDS: Acetaminophen 325 MG TAB PO PRN (10:13)
[2018-02-04 10:27] LABS: Thyroid Stimulating Hormone 0.6243 uIU/mL (0.35-4.94)
[2018-02-04] MEDS ORDERED: Epoetin (NON-ESRD) 20,000 UNITS/ML ML IVP SCH (10:30)
--- NOTE | 2018-02-04 11:20 | PRG ---
DATE OF SERVICE: 02/04/2018 SUBJECTIVE: An 87-year-old gentleman being seen for kidney disease. The patient denied nausea, vomi ting, or chest pain. PHYSICAL EXAMINATION: GENERAL: Patient is awake, alert. VITAL SIGNS: Afebrile, pulse 90, breathing 16, blood pressure 142/55. OBJECTIVE: See above. Awake, alert, in no acute distress. GENERAL APPEARANCE AND MENTAL STATUS: Fair. HEAD/NECK: Normocephalic. Atraumatic. EYES: EOMI. No deformity. EARS: Clear. No ulcers. NOSE: Intact. No lesions. MOUTH: Clear. No discharge. THROAT: Clear. No exudate. LUNGS: Clear. No crackles. CARDIAC: S1, S2. No rub. ABDOMEN: Benign. BS+. GENITALIA/RECTUM: Shabazz absent. BACK/EXTREMITIES: Edema 0+ Ulcer- NEUROLOGICAL: Alert and motor intact. SKIN: Rash- Bruise- LYMPHATICS: Edema- Ulcer- LABORATORY: Hemoglobin 9.1, creatinine 2.8. ASSESSMENT AND RECOMMENDATIONS: 1. End-stage chronic kidney disease, continue hemodialysis. 2. Hypertension, stable. 3. Anemia, stable. I recommend 1 liter fluid restriction per 24 hours.
--- NOTE | 2018-02-04 14:20 | PDOC.PN ---
- Subjective Encounter Start Date: 02/04/18 Encounter Start Time: 09:20 Subjective: no sob or nausea -: got tired with HD yesterday -: is going for 2 hr session HD today - Objective Resuscitation Status: Resuscitation Status FULL:Full Resuscitation MAR Reviewed: Yes Vital Signs & Weight: Vital Signs (12 hours) Temp Pulse Resp BP Pulse Ox 02/04/18 08:01 87 02/04/18 07:38 97.6 F 87 20 158/53 H 98 Weight Weight 218 lb 4.122 oz I&O: 02/03/18 02/04/18 02/05/18 06:59 06:59 06:59 Intake Total 600 500 Output Total 2000 1500 Balance -1400 -1000 Result Diagrams: 02/04/18 09:39 02/04/18 09:39 Phys Exam - Physical Examination HEENT: PERRLA, moist MMs Neck: no JVD, supple Respiratory: no wheezing, no rales Cardiovascular: RRR, no significant murmur Gastrointestinal: soft, non-tender, positive bowel sounds Musculoskeletal: pulses present, edema present Neurological: non-focal, moves all 4 limbs Psychiatric: normal affect, A&O x 3 Dx/Plan (1) Hypotension Status: Acute Qualifiers: Hypotension type: unspecified hypotension type Qualified Code(s): I95.9 - Hypotension, unspecified (2) ESRD (end stage renal disease) on dialysis Code(s): N18.6 - END STAGE RENAL DISEASE; Z99.2 - DEPENDENCE ON RENAL DIALYSIS Status: Chronic (3) BPH (benign prostatic hyperplasia) Code(s): N40.0 - BENIGN PROSTATIC HYPERPLASIA WITHOUT LOWER URINRY TRACT SYMP Status: Chronic Qualifiers: Lower urinary tract symptom detail: unspecified (4) Chronic anemia Code(s): D64.9 - ANEMIA, UNSPECIFIED Status: Chronic (5) Combined systolic and diastolic congestive heart failure Code(s): I50.40 - UNSP COMBINED SYSTOLIC AND DIASTOLIC (CONGESTIVE) HRT FAIL Status: Chronic Qualifiers: Heart failure chronicity: acute on chronic Qualified Code(s): I50.43 - Acute on chronic combined systolic (congestive) and diastolic (congestive) heart failure Comment: continue current management. 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 (10) Obesity Code(s): E66.9 - OBESITY, UNSPECIFIED Status: Chronic Qualifiers: Obesity classification: adult class 1 (BMI 30 - 34.9) - Plan may dc to [facility] today after his HD -: hemostable -: midodrine on HD days per 's advice -: hypotension has resolved -: to wear compression stockings for LE * . Review of Systems - Medications/Allergies Allergies/Adverse Reactions: Allergies Allergy/AdvReac Type Severity Reaction Status Date / Time ciprofloxacin HCl Allergy Verified 07/13/17 21:32 [From Cipro] iodine Allergy Verified 07/13/17 21:32 nitrofurantoin Allergy Verified 07/13/17 21:32 macrocrystalline [From Macrodantin] Sulfa (Sulfonamide Allergy Verified 07/13/17 21:32 Antibiotics) Medications: Current Medications Acetaminophen (Tylenol) 650 mg PO Q6H PRN PRN Reason: Headache/Fever or Pain Last Admin: 02/04/18 10:13 Dose: 650 mg Bisacodyl (Dulcolax) 10 mg PO DAILYPRN PRN PRN Reason: Constipation Buspirone HCl (Buspar) 10 mg PO TID [facility] Last Admin: 02/04/18 08:01 Dose: 10 mg Epoetin Lior (Procrit) 3,000 units IVP .DIALYSIS [facility] Famotidine (Pepcid) 20 mg PO QAM [facility] Last Admin: 02/04/18 08:00 Dose: 20 mg Finasteride (Proscar) 5 mg PO DAILY [facility] Last Admin: 02/04/18 08:01 Dose: 5 mg Gabapentin (Neurontin) 100 mg PO BIDPRN PRN PRN Reason: Pain Last Admin: 02/03/18 20:34 Dose: 100 mg Hydrocortisone (Cortef) 30 mg PO BID [facility] Last Admin: 02/04/18 08:00 Dose: 30 mg Levothyroxine Sodium (Synthroid) 88 mcg PO 0600 [facility] Last Admin: 02/04/18 05:30 Dose: 88 mcg Lisinopril (Zestril) 2.5 mg PO DAILY [facility] Last Admin: 02/04/18 08:01 Dose: 2.5 mg Midodrine (Proamatine) 2.5 mg PO ASDIR [facility] Last Admin: 02/04/18 10:10 Dose: 2.5 mg Sodium Chloride (Flush - Normal Saline) 10 ml IVF Q12HR [facility] Last Admin: 02/04/18 08:01 Dose: Not Given Sodium Chloride (Flush - Normal Saline) 10 ml IVF PRN PRN PRN Reason: Saline Flush Trospium (Trospium) 20 mg PO DAILY [facility] Last Admin: 02/04/18 08:01 Dose: 20 mg Vitamin B Complex/Vit C/Folic Acid (Nephro-Mariluz Tablet) 1 tab PO DAILY [facility] Last Admin: 02/04/18 08:01 Dose: 1 tab Warfarin Sodium (Coumadin) 5 mg PO MoWeFr@1700 [facility] Last Admin: 02/02/18 17:03 Dose: 5 mg Warfarin Sodium (Coumadin) 4 mg PO SuTuThSa@1700 [facility] Last Admin: 02/03/18 16:45 Dose: 4 mg
[2018-02-04 14:33] VITALS: BP 132/60; TEMP 98.5
[2018-02-04 14:43] LABS: Free T4 (Free Thyroxine) 0.77 ng/dL (0.70-1.48)
--- NOTE | 2018-02-05 15:50 | EKG ---
Test Reason : Blood Pressure : / mmHG Vent. Rate : 080 BPM Atrial Rate : 080 BPM P-R Int : 140 ms QRS Dur : 180 ms QT Int : 466 ms P-R-T Axes : 041 165 066 degrees QTc Int : 537 ms Poor data quality, interpretation may be adversely affected AV sequential or dual chamber electronic pacemaker Confirmed by CONCHITA CANO M.D. ([id number]), editor farm journal KATHRYN ARELLANO ([id number] on 02/05/2018 3:49:53 PM Referred By: Confirmed By:CONCHITA CANO M.D.
--- NOTE | 2018-02-05 19:18 | DIS ---
DATE OF ADMISSION: 02/01/2018 DATE OF DISCHARGE: 02/04/2018 DISCHARGE DISPOSITION: To [facility]. PRIMARY DISCHARGE DIAGNOSES: Hypotension, volume overload with inability to complete dialysis prior to admission status post [id number] hemodialysis x3, end-stage renal disease on dialysis, benign pr ostatic hypertrophy, chronic anemia, severe deconditioning, history of congestive heart failure with systolic and diastolic dysfunction, history of pulmonary embolism, hypopituitarism on levothyroxine a nd hydrocortisone, hypothyroidism and obesity. PROCEDURES DONE DURING HOSPITALIZATION: Chest x-ray done on the day of admission showed no acute car diopulmonary abnormalities. There are signs of atherosclerosis seen. H and H 9 and 27, platelet cou nt 120,000, MCV was 99. White count of 6. PT/INR 15 and 1.2 on the day of discharge. Free T4, 0.7. Free T3, 1.41. TSH 0.62. Cortisol levels were 20. INPATIENT CONSULTS: Dr. Og for Nephrology. DISCHARGE MEDICATIONS: Gabapentin 100 mg p.o. twice daily, Synthroid 88 mcg p.o. daily, midodrine 2. 5 mg on hemodialysis days per Dr. Og's advice, Coreg 6.25 mg twice daily, buspirone 10 mg twice hugo ly, Coumadin as before, ranitidine 150 mg p.o. twice daily, hydrocortisone 30 mg p.o. 3 times daily. DISCHARGE PLAN: The patient to follow up with primary care physician in 1 week. BRIEF COURSE DURING HOSPITALIZATION: The patient initially was admitted for hypotension. This was n oticed during dialysis and was not able to dialyze and was sent to the emergency room. 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 He was given fluid boluses and his hypotension was holding up. He has had gentle dialysis done [id number] x3. His discharge blood pressures have been stable around 130/60. He needs to take midodrine on dialysis days to help with hypotension dur ing dialysis. 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 The [place] ent needs to follow up with his lift builder whole for further studies on the same in 2 weeks. Due to s evere deconditioning, the patient is being discharged to swing bed at [facility] prior t o going home. A total of 35 minutes was spent on discharge plan. Please see a [id number] documentation on [facility] for the day of discharge.
== END 2018-02-04 16:03 | DRG 314 ==
LOC: ERS 17:11 → T4-A 21:44
PROVIDERS: ADMIT Internal Medicine; ATTEND Internal Medicine
PROC: 5A1D70Z Performance of Urinary Filtration, Intermittent, Less than 6 Hours Per Day (ICD-10-PCS; principal; 2018-01-31)
PROC: 5A1D70Z Performance of Urinary Filtration, Intermittent, Less than 6 Hours Per Day (ICD-10-PCS; 2018-01-31)
PROC: 5A1D70Z Performance of Urinary Filtration, Intermittent, Less than 6 Hours Per Day (ICD-10-PCS; 2018-01-31)
PROC: 5A1D70Z Performance of Urinary Filtration, Intermittent, Less than 6 Hours Per Day (ICD-10-PCS; 2018-01-31)
DX: I95.9 Hypotension, unspecified (principal); N18.6 End stage renal disease; I50.43 Acute on chronic combined systolic (congestive) and diastolic (congestive) heart failure; I13.2 Hypertensive heart and chronic kidney disease with heart failure and with stage 5 chronic kidney disease, or end stage renal disease; I42.9 Cardiomyopathy, unspecified; N40.0 Benign prostatic hyperplasia without lower urinary tract symptoms; D63.1 Anemia in chronic kidney disease; Z99.2 Dependence on renal dialysis; Z86.711 Personal history of pulmonary embolism; E89.3 Postprocedural hypopituitarism; E66.9 Obesity, unspecified; E89.0 Postprocedural hypothyroidism; Z91.81 History of falling; Z87.01 Personal history of pneumonia (recurrent); Z87.442 Personal history of urinary calculi; I48.91 Unspecified atrial fibrillation; Z87.891 Personal history of nicotine dependence; E87.70 Fluid overload, unspecified; Z79.52 Long term (current) use of systemic steroids; I08.0 Rheumatic disorders of both mitral and aortic valves; Z86.718 Personal history of other venous thrombosis and embolism; Z68.31 Body mass index [BMI] 31.0-31.9, adult
CPT/HCPCS: 36415; 71045; 80048; 80053; 81003; 82533; 84439; 84443; 84481; 85014; 85018; 85025; 85610; 90935; 93005; A4216; G0257; G8978-GP-CM; G8979-GP-CK; G8996-GN-CJ; G8997-GN-CI; J0885

== ENCOUNTER 2018-02-08 09:52 | Inpatient (IN) | payer MEDICARE, OTHER ==
--- NOTE | 2018-02-08 10:48 | CT ---
CT HEAD NONCONTRAST: History: Altered mental status. Comparison: 12-28-17 FINDINGS: There is no evidence of acute intracranial hemorrhage or infarct. Mild atrophy and chronic ischemic s mall vessel disease are similar in appearance to the previous exam. No mass effect or shift of midlin e structures. Mild mucosal thickening left mastoid air cells. IMPRESSION: Chronic type findings are stable. No acute intracranial abnormalities are demonstrated on noncontrast CT head. POS: [facility]
[2018-02-08 10:56] LABS: #Eosinphils 0.2 thou/uL (0.0-0.7); #Lymphocytes 1.5 thou/uL (1.20-3.40); #Monocytes 0.9 thou/uL (0.11-0.59); %Basophils 0.3 % (0.0-1.0); %Eosinophils 2.7 % (0.0-10.0); %Lymphocytes 22.8 % (21.0-51.0); %Monocytes 13.1 % (0.0-10.0); %Neutrophils 61.1 % (42.0-75.0); Hemoglobin 8.9 g/dL (14.0-18.0); Mean Corpuscular HGB CONC 33.8 g/dL (32.0-36.0); Mean Corpuscular Hemoglobin 33.8 pg (27.0-31.0); Mean Platelet Volume 8.2 fL (7.4-10.4); Platelet Count 141 thou/uL (130-400); RBC Distribution Width 15.3 % (11.5-14.5); Red Blood Cell (RBC) Count 2.63 mill/uL (4.70-6.10); White Blood Cell (WBC) Count 6.6 thou/uL (4.8-10.8)
[2018-02-08 11:21] LABS: ALT (SGPT) 12 U/L (8-55); AST (SGOT) 23 U/L (5-34); Albumin 3.2 g/dL (3.4-4.8); Alkaline Phosphatase 70 U/L (40-150); Anion Gap 12 mmol/L (10-20); BUN (Urea Nitrogen) 18 mg/dL (8.4-25.7); Bilirubin, Total 1.3 mg/dL (0.2-1.2); Calc. Creatinine Clearance 0 mL/min (70-130); Calcium 8.5 mg/dL (7.8-10.44); Carbon Dioxide 26 mmol/L (23-31); Chloride 102 mmol/L (98-107); Estimated GFR-MDRD 11; Globulin 2.3 g/dL (2.4-3.5); Glucose 115 mg/dL (83-110); Potassium 3.4 mmol/L (3.5-5.1); Protein, Total 5.5 g/dL (5.8-8.1); Sodium 137 mmol/L (136-145)
[2018-02-08 11:22] LABS: CKMB 2.1 ng/mL (0-6.6); Troponin I 0.122 ng/mL (< 0.028)
[2018-02-08] MEDS ORDERED: Piperacillin/Tazobactam 4.5 GM VIAL ONE (11:22)
[2018-02-08] MEDS ORDERED: Cefepime 2 GM VIAL ONE (11:24)
[2018-02-08] MEDS ORDERED: Succinylcholine Chloride 20 MG/ML 10 ml SYRINGE FS ONE (11:59)
[2018-02-08] MEDS ORDERED: Albumin 25% 25 GM/100 ML BOT IVPB SCH (12:00)
--- NOTE | 2018-02-08 12:25 | RAD ---
CHEST 1 VIEW: History Altered mental status. Dyspnea. COMPARISON: 01/31/18. FINDINGS: Cardiac silhouette is magnified, upper limits of normal, and partially obscured by an elevated right hemidiaphragm that is now evident. Pulmonary vasculature is engorged with bilateral perihilar infilt rates. Mediastinum is midline with aortic calcification, right internal jugular large-caliber cathet er, and multilead left subclavian cardiac electronic device. No evidence of pneumothorax. IMPRESSION: 1. Pulmonary vascular congestion. Recent development of right hemidiaphragm elevation. Cause is no t apparent. 2. Atherosclerosis. POS: [facility]
[2018-02-08 12:32] LABS: Analyzer IN Cardio ER; Base Excess (BEa) 0.3 mEq/L (-2.0 to +3.0); CO2 Tension 29.8 mmHg (35.0-45.0); Calcium, Ionized 1.06 mmol/L (1.12-1.30); Carboxyhemoglobin (COHb) 0.3 gm% (0.0-3.0); Hemoglobin (Hb) 9.2 g/dL (14.0-18.0); O2 Tension (PaO2) 140.4 mmHg (> 60.0); pH, Arterial 7.51 (7.35-7.45)
[2018-02-08 12:33] LABS: Puncture Site RBRACH
--- NOTE | 2018-02-08 12:39 | PDOC.PULCN ---
<Gallo Bryson - Last Filed: 02/08/18 16:01> Pulmonology Consult: HPI - Date of Consult Date: 02/08/18 Time: 12:37 - Consult Details Reason for Consult: ICU admission and Intubation Requesting Physician: ED Physician - History of Present Illness HPI: BUBBA BUENROSTRO is a 87 year-old Male that presents to ED with AMS. Patient is normally A&Ox3 at his baseline. Patient has had AMS since his dialysis session yesterday. No family is available at the bedside for the interview. Patient is intubated and sedated currently. Patient was minimally responsive to noxious stimuli. Per nursing staff, patient became increasingly more somnolent and altered. No other history was able to be obtained. Pulmonology Consult: ROS - Review of Systems ROS unobtainable: due to endotracheal tube Pulmonology Consult: PMH Source: other Past Medical History: PMH: Panhypopituitarism, Nephrolithiasis, UTI, PE, ESRD on HD, Cardiomyopathy, A -fib PSH: Head tumor removal, Tonsillectomy, AICD-Pacemaker placement, Urology surgery - Family History Family history: reviewed and not pertinent - Social History Smoking Status: Former smoker Alcohol Use: none Drug Use History: none Living Situation: longterm resident Pulmonology Consult: Meds - Medications Medications: Current Medications Albumin Human (Albumin 25%) 25 gm IVPB NOW KONRAD Stop: 02/08/18 16:00 - Allergies Allergies/Adverse Reactions: Allergies Allergy/AdvReac Type Severity Reaction Status Date / Time ciprofloxacin HCl Allergy Verified 07/13/17 21:32 [From Cipro] iodine Allergy Verified 07/13/17 21:32 nitrofurantoin Allergy Verified 07/13/17 21:32 macrocrystalline [From Macrodantin] Sulfa (Sulfonamide Allergy Verified 07/13/17 21:32 Antibiotics) Pulmonology Consult: PE - Physical Exam Deviation from normal: Intubated and sedated Deviation from normal: Dry mucous membranes Cardiovascular: RRR, no significant murmur Deviation from normal: Course breath sounds bilaterally Gastrointestinal: soft, non-tender, no distention, positive bowel sounds Deviation from normal: 1+ pitting edema bilaterally Deviation from normal: Intubated and sedated Deviation from normal: intubated and sedated Pulmonology Consult: Results - Labs Result Diagrams: 02/08/18 10:43 02/08/18 10:43 - ABG Interpretation ABG Results: ABG pH 7.51 (7.35-7.45) H 02/08/18 12:30 ABG pCO2 29.8 mmHg (35.0-45.0) L 02/08/18 12:30 ABG O2 Sat Calc/Luann 98.2 % (94.0-98.0) H 02/08/18 12:30 ABG Base Excess 0.3 mEq/L (-2.0 to +3.0) 02/08/18 12:30 Pulmonology Consult: A/P - Problem (1) Metabolic encephalopathy Current Visit: Yes Code(s): G93.41 - METABOLIC ENCEPHALOPATHY Status: Acute (2) Acute respiratory failure Current Visit: Yes Code(s): J96.00 - ACUTE RESPIRATORY FAILURE, UNSP W HYPOXIA OR HYPERCAPNIA Status: Acute (3) Hypotension Current Visit: No Status: Acute Qualifiers: Hypotension type: unspecified hypotension type Qualified Code(s): I95.9 - Hypotension, unspecified (4) ESRD (end stage renal disease) on dialysis Current Visit: No Code(s): N18.6 - END STAGE RENAL DISEASE; Z99.2 - DEPENDENCE ON RENAL DIALYSIS Status: Chronic (5) Chronic diastolic (congestive) heart failure Current Visit: No Code(s): I50.32 - CHRONIC DIASTOLIC (CONGESTIVE) HEART FAILURE Status: Chronic (6) Hypertension Current Visit: No Code(s): I10 - ESSENTIAL (PRIMARY) HYPERTENSION Status: Chronic Qualifiers: Hypertension type: essential hypertension Qualified Code(s): I10 - Essential (primary) hypertension - Time Time: 50% of the time was spent in coordination of care (as documented) at patient's floor/unit and/or counseling patient. Time with Patient: greater than 50 minutes - Plan Plan: 1. Metabolic encephalopathy - Secondary to Hypotension - Currently intubated and sedated #Acute Respiratory failure - Currently intubated and sedated - Will continue O2 supplementation as needed # Hypotension - Likely secondary to volume depletion. - Will give 1L NS bolus - Nephrology consulted # ESRD on HD - Nephrology consulted - Continue on dialysis schedule as tolerated - likely cause of current state # Chronic diastolic CHF - ECHO December 2017 - Closely monitor fluid status - Restart home medications as tolerated # HTN - Hold all home BP medications due to hypotension Disposition: Guarded, will continue supportive care. <Kristian Whiteside M - Last Filed: 02/10/18 08:32> Pulmonology Consult: HPI - History of Present Illness HPI: BUBBA BUENROSTRO F is a 87 year-old M Pulmonology Consult: Meds - Medications Medications: Current Medications Albuterol/Ipratropium (Duoneb) 3 ml NEB [id number] PRN PRN Reason: SOB &/or Wheezing Famotidine (Pepcid) 20 mg PER TUBE DAILY KONRAD Last Admin: 02/09/18 09:10 Dose: 20 mg Fentanyl (Sublimaze) 50 mcg SLOW IVP Q2H PRN PRN Reason: Pain Last Admin: 02/09/18 23:40 Dose: 50 mcg Hydrocortisone Sodium Succinate (Solu-Cortef) 50 mg IVP Q6HR KONRAD Last Admin: 02/10/18 06:30 Dose: 50 mg Fentanyl Citrate 2,000 mcg/ (Sodium Chloride) 100 mls @ 0 mls/hr IV INF KONARD; Protocol Stop: 03/10/18 14:18 Norepinephrine Bitartrate (Levophed) 250 mls @ 0 mls/hr IVPB INF PRN; Protocol PRN Reason: Blood Pressure Mineral Oil/White Petrolatum (Lacri-Lube Ointment) 0 gm EA EYE PRN PRN PRN Reason: Dry Eyes Discontinue Previous Narcotic Pain Medications And Benzodiazepines 1 each FS .ONE KONRAD Stop: 03/10/18 14:18 Sodium Chloride (Flush - Normal Saline) 10 ml IVF Q12HR KONRAD Sodium Chloride (Flush - Normal Saline) 10 ml IVF PRN PRN PRN Reason: Saline Flush Pulmonology Consult: Results - Labs Result Diagrams: 02/10/18 03:21 02/10/18 03:21 - ABG Interpretation ABG Results: ABG pH 7.51 (7.35-7.45) H 02/08/18 12:30 ABG pCO2 29.8 mmHg (35.0-45.0) L 02/08/18 12:30 ABG O2 Sat Calc/Luann 98.2 % (94.0-98.0) H 02/08/18 12:30 ABG Base Excess 0.3 mEq/L (-2.0 to +3.0) 02/08/18 12:30 Pulmonology Consult: A/P - Time Time: 50% of the time was spent in coordination of care (as documented) at patient's floor/unit and/or counseling patient. Attending Addendum - Attending Addendum Date/Time: 02/08/18 1700 I personally evaluated the patient and discussed the management with Dr. Bryson. I agree with the History, Examination, Assessment and Plan documented above with any addition or exceptions noted below. Critical care time: 30 minutes
[2018-02-08 12:42] LABS: Bilirubin Moderate (Negative); Blood, Urine Negative (Negative); Clarity CLOUDY (Clear); Glucose, Urine (Dipstick) Negative (Negative); Leukocyte Small (Negative); Nitrite Positive (Negative); Protein, Urine (Dipstick) Trace mg/dL (Neg-Trace); Specific Gravity, Urine 1.022 (1.002-1.036); Urobilinogen 0.2 mg/dL (0.2-1.0)
[2018-02-08 12:43] LABS: RBC/HPF 0-3 HPF (0-3)
[2018-02-08 12:45] LABS: Pathc Cast-AUWi Flag 5.23 (0-2.49)
[2018-02-08 12:52] LABS: Bacteria/HPF 1+ HPF (None Seen); Hyaline Casts/LPF 4-6 HYALINE CAST LPF (0-3 Hyaline); Renal Epithelial None Seen HPF (0-3); Transitional Epithelial 0-3 HPF (0-3)
[2018-02-08 12:53] LABS: Manual Microscopic Reviewed? No Path Casts Seen
[2018-02-08] MEDS ORDERED: Fentanyl 100 MCG/2 ML VIAL ONE ×2 (12:59→13:47)
[2018-02-08] MEDS ORDERED: fentaNYL Citrate/PF 2,000 MCG in Sodium Chloride 0.9% 60 ML IV SCH ×2 (13:22→14:18)
--- NOTE | 2018-02-08 13:31 | RAD ---
ONE VIEW CHEST: COMPARISON: 02/08/18. HISTORY: Decreased responsiveness since yesterday. FINDINGS: There is an endotracheal tube, terminating at the level of the clavicles. Stable left-sided defibril lator. Right-sided HemoSplit dialysis catheter is noted. Distal tip projects over the right atrium. Enlarged cardiac silhouette. The pulmonary vessels and hilum are normal. Costophrenic angles are clear. No consolidation or mass. No pneumothorax. No osseous abnormalities. IMPRESSION: Lines and tubes as above. POS: LEONELA
[2018-02-08] MEDS ORDERED: Ventilator Sedation Protocol 1 EACH FS SCH (14:15)
[2018-02-08] MEDS ORDERED: Sodium Chloride 0.9% 1,000 ML IV SCH ×2 (14:15→15:00)
--- NOTE | 2018-02-08 14:16 | CT ---
CT ABDOMEN NONCONTRAST CT PELVIS NONCONTRAST: (urolithiasis protocol) DATE: 02-08-18 TIME: 12:51 p.m. HISTORY: 87-year-old male with hypotension. COMPARISON: 07-13-17 TECHNIQUE: IV injection of iodinated contrast media: none Oral contrast media: none FINDINGS: Other than for urolithiasis, the lack of IV and oral contrast limits the evaluation. The gallbladder is again distended. Questionable mildly fatty liver. No splenomegaly. Atherosclerotic calcification of the abdominal aorta without aneurysm. Numerous surgical clips along the bilateral i nternal, external, and common iliac chains. 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 No enlarged retroperitoneal lymph nodes identified. Kidneys are bilaterally small in size. No h ydronephrosis. Severe fatty infiltration of the pancreas. No adrenal nodule. No small bowel dilation. No colonic diverticulitis. Normal appendix. Dependent atelectasis broadly abutting bilateral posteri or and inferior pleural surfaces. Additional nonspecific streaky densities in the right lower lobe. C ardiomegaly. A few tiny calcified gallstones in the proximal body of the gallbladder. No pericholecys tic edema or cholecystic mural thickening. Lumbar spondylosis. No major interval change. The spleen a nd urinary bladder are normal. There is no free fluid, free air, or retroperitoneal hematoma. IMPRESSION: 1. 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 2. No urolithiasis or obstructive uropathy. 3. Cholelithiasis and distended gallbladder. 4. Lumbar spondylosis. 5. Otherwise no acute findings within the abdominal cavity or pelvic cavity. AMY Dawn POS: JANNET
[2018-02-08] MEDS ORDERED: Fentanyl BOLUS 250 ML IVPB PRN (14:18)
[2018-02-08] MEDS ORDERED: Propofol BOLUS 1,000 MG/100 ML VIAL IV PRN (14:18)
[2018-02-08] MEDS ORDERED: DISCONTINUE PREVIOUS NARCOTIC PAIN MEDICATIONS AND BENZODIAZEPINES FS SCH (14:18)
[2018-02-08] MEDS ORDERED: Propofol 1,000 MG/100 ML VIAL IV PRN (14:18)
[2018-02-08] MEDS ORDERED: Lorazepam 2 MG/ML VIAL SLOW IVP PRN (14:18)
[2018-02-08] MEDS ORDERED: Lacri-Lube Opth Oint 3.5 GM TUBE EA EYE PRN (15:28)
[2018-02-08] MEDS: Sodium Chloride 0.9% 1,000 ML IV SCH ×2 (17:15→18:55)
[2018-02-08] MEDS: Hydrocortisone Sod Succ/PF 100 mg/2 ml Vial IVP SCH ×2 (17:39→23:41)
[2018-02-08] MEDS ORDERED: Prevnar 13-Val Conj/PF 0.5 ML SYRINGE IM ONE (21:00)
[2018-02-09] MEDS ORDERED: Norepinephrine 8 MG/250 ML BAG IVPB PRN (02:25)
[2018-02-09] MEDS ORDERED: Norepinephrine 8 MG/0.9% NS 250 ML ONE (02:25)
--- NOTE | 2018-02-09 05:36 | HP ---
DATE OF ADMISSION: 02/08/2018 REASON FOR ADMISSION AND CHIEF COMPLAINT: Change in mental status. The patient is unresponsive. HISTORY OF PRESENT ILLNESS: Mr. Villa is an 87-year-old male with past medical history of end-stage renal disease, on hemodialysis; panhypopituitarism; and hypotension; who was recently di scharged from the hospital and went to the retirement 2-3 days ago, he states he was hypotensive at the retirement also. He undergoes dialysis 3 times a week. Usually, the patient is alert, awake, talkative, but he was unresponsive now, today this morning. So, the patient was sent to the [facility] for evaluation. In the ER, the patient was evaluated. The patient was found to be unresponsive an d hypotensive in the ER. As he was waiting in the ER, he became more obtunded, so the patient was in tubated for the respiratory failure, unresponsiveness, and hypotension. The patient received albumin infusion and also IV fluid bolus with sodium and normal saline. He also received a dose of Zosyn, c efepime, and vancomycin. The patient is intubated and put on ventilator support, admitted to CCU. T he patient was recently in the hospital with hypotension and respiratory failure and discharged aroun d 02/04/2018, which is 3 or 4 days ago. PAST MEDICAL HISTORY: 1. End-stage renal disease, on hemodialysis. 2. Hypotension. 3. Diastolic heart failure. 4. Cardiomyopathy. 5. History of atrial fibrillation. 6. Panhypopituitarism. 7. History of nephrolithiasis. 8. History of UTI. 9. History of pulmonary embolism. PAST SURGICAL HISTORY: 1. 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 2. Status post AICD placement. 3. Status post tonsillectomy. CURRENT MEDICATIONS: The patient is on Coumadin 4 mg daily, ranitidine 150 b.i.d., ProAmatine 2.5 on dialysis days, levothyroxine 88 mcg daily, gabapentin 100 mg b.i.d., Coreg 6.25 b.i.d., BuSpar 10 mg b.i.d. ALLERGIES: CIPRO, IODINE, NITROFURANTOIN and SULFA. REVIEW OF SYSTEMS: Unable to obtain because the patient is intubated and sedated. PHYSICAL EXAMINATION: GENERAL: The patient is sedated. VITAL SIGNS: Temperature 98, pulse 85, respirations 20, blood pressure 74/40. HEENT: Head is normocephalic, atraumatic. Pupils are equal and reactive to light. LUNGS: Breath sounds are present bilaterally. No rales or rhonchi present bilaterally. HEART: S1 and S2 irregularly irregular. ABDOMEN: Soft. No distention, no tenderness. Bowel sounds present. RECTAL: Deferred. CENTRAL NERVOUS SYSTEM: Could not be examined. LABORATORY AND X-RAY FINDINGS: CBC shows WBC 6.6, hemoglobin 8.9, hematocrit 26, platelets 141. Met abolic panel: Sodium 137, potassium 3.4, chloride , BUN 18, creatinine 4.8, glucose 115. CK-MB 2, troponin I 0.122. Urinalysis, wbc's 7-10, bacteria 1+. ABG showed pH 7.5, pCO2 of 29, pO2 of 11 4, saturation . EKG shows electronic pacemaker rhythm. Chest x-ray shows no infiltrates. ASSESSMENT: 1. Acute respiratory failure. 2. Metabolic encephalopathy, severe. 3. Hypotension. 4. End-stage renal disease. 5. History of diastolic dysfunction. 6. Panhypopituitarism by history. PLAN: 1. CCU monitoring. 2. Ventilator support. 3. Continue IV fluid bolus normal saline. 4. Hydrocortisone 50 mg IVP q.6. hours. 5. Pepcid 20 mg IV piggyback q.12 hours. 6. Diet: N.p.o. 7. Pulmonary consult. 8. Nephrology consult.
[2018-02-09] MEDS: Hydrocortisone Sod Succ/PF 100 mg/2 ml Vial IVP SCH ×4 (06:31→23:41)
--- NOTE | 2018-02-09 08:09 | CON ---
DATE OF CONSULTATION: 02/08/2018 CONSULTING PHYSICIAN: Dr. Leach from the ER. REASON FOR CONSULT: End-stage renal disease, evaluation and care. REASON FOR ADMISSION: Hypertension and altered mentation. HISTORY OF PRESENT ILLNESS: An 87-year-old male with history of end-stage renal disease, cardiomyopa thy, atrial fibrillation, who came to the hospital with altered mentation. Patient was intubated, I saw him in ICU and no family members available. Patient recently saw on dialysis and was having a __ ___ with hypotension and dizziness. No fever or chills reported. No nausea, vomiting. PAST MEDICAL HISTORY: Positive for cardiomyopathy, AFib, chronic kidney disease. PAST SURGICAL HISTORY: Tumor removal from head, pacemaker placement. HOME MEDICATIONS: Carvedilol, buspirone, gabapentin, metolazone, levothyroxine, warfarin, [place], mec lizine, ranitidine, torsemide. ALLERGIES: CIPRO, MACRODANTIN, SULFA, IODINE. SOCIAL HISTORY: Quit smoking few years back. No alcohol or illicit drug abuse. FAMILY HISTORY: No history of kidney disease. REVIEW OF SYSTEMS: Could not be obtained as intubated. PHYSICAL EXAMINATION: GENERAL: Patient is an elderly male, he is in ICU, intubated. VITAL SIGNS: Temperature 98.7, pulse 70, respiratory rate 18, blood pressure 75/37. HEENT: Intubated. CARDIOVASCULAR: S1, S2 heard. RESPIRATORY: Clear. GI: Abdomen is soft. MUSCULOSKELETAL: 1+ edema. DERMATOLOGIC: No skin rash. NEUROLOGIC: Intubated. LABORATORY DATA: Hemoglobin is 8.9, potassium 3.4, BUN is 18, creatinine is 1.8. ASSESSMENT AND PLAN: 1. End-stage renal disease. We will continue on hemodialysis if tolerated seems like patient is not able to tolerate dialysis very well. We will have discussion with the family. 2. Edema, controlled. 3. Hypertension. 4. Anemia. 5. Acute hypoxic respiratory failure. Overall, prognosis is poor. We will continue to follow. Avoid nephrotoxins. We will continue dialy sis if tolerated.
[2018-02-09] MEDS ORDERED: Prevnar 13-Val Conj/PF 0.5 ML SYRINGE IM ONE (09:00)
[2018-02-09] MEDS: Famotidine 40 MG/5 ML Oral Suspension PER TUBE SCH (09:10)
[2018-02-09 09:30] LABS: Lactic Acid 1.5 mmol/L (0.5-2.2)
[2018-02-09 09:34] LABS: Anion Gap 15 mmol/L (10-20); BUN (Urea Nitrogen) 24 mg/dL (8.4-25.7); Calc. Creatinine Clearance 15 mL/min (70-130); Calcium 8.6 mg/dL (7.8-10.44); Carbon Dioxide 21 mmol/L (23-31); Chloride 104 mmol/L (98-107); Estimated GFR-MDRD 11; Glucose 168 mg/dL (83-110); Potassium 4.2 mmol/L (3.5-5.1); Sodium 136 mmol/L (136-145)
[2018-02-09 09:54] LABS: Troponin I 0.079 ng/mL (< 0.028)
--- NOTE | 2018-02-09 13:08 | PRG ---
DATE OF SERVICE: 02/09/2018 SERVICE: Pulmonary Medicine. INTERVAL HISTORY: The patient is doing fine from a respiratory standpoint. He required minimal vent support. That being said, mentation garcia, things have improved very much. He cannot provide any additional elements of the history currently. There was no reported events from nursing. PHYSICAL EXAMINATION: VITAL SIGNS: Afebrile, pulse 96, blood pressure 116/49, respirations 22, saturation 99% on 21% FiO2 and a PEEP of 5. GENERAL: The patient is intubated. He is requiring no sedation, but remains encephalopathic. HEENT: Normocephalic, atraumatic. Sclerae are white, conjunctivae pink. Oral mucosa is moist without lesions. LUNGS: Decent air entry. There is no prolonged expiratory phase or wheezing identified. HEART: Normal rate, regular. ABDOMEN: Soft, nontender, nondistended. Bowel sounds are positive. MUSCULOSKELETAL: No cyanosis or clubbing. There is diffuse 2+ pitting in the bilateral lower extremities. NEUROLOGIC: Grossly nonfocal. LABORATORY DATA: Laboratories: Creatinine 5.10. Basic metabolic profile is otherwise unremarkable. Lactate remains unremarkable. Troponin is down trending to 0.079. Blood cultures growing Staph epidermidis in 1 out of 2. ASSESSMENT: 1. Metabolic encephalopathy. 2. End-stage renal disease. 3. Respiratory failure secondary to #1. 4. Adrenal crisis, improving. 5. Chronic diastolic heart failure. DISCUSSION AND PLAN: The patient's blood pressure has actually improved dramatically with just nothing more than initiation of steroids. As such, my suspicion is that we are dealing with adrenal crisis. There is a chance that he was not getting and/or refusing some of his mineralocorticoid in the outpatient setting. Either way, he does not seem to have any end organ damage except for altered mentation. We will see if mentation improves a little bit over the next 24-48 hours. I will discontinue his sedation. If he wakes up, spontaneous breathing trial, and extubation will be considered. He is on a very low dose pressor medication. Hopefully, this will be weaned over the next 24 hours. CRITICAL CARE TIME: 30 minutes. MTDD
--- NOTE | 2018-02-09 17:53 | PRG ---
DATE OF SERVICE: 02/09/2018 SUBJECTIVE: The patient was seen and examined in ICU today, remains intubated and nonverbal. OBJECTIVE: GENERAL: This is an elderly male in no apparent distress. VITAL SIGNS: Temperature 98.5, pulse 93, respiratory 18, and blood pressure 146/59. HEENT: Intubated. CARDIOVASCULAR: S1 and S2 heard. Rate and rhythm regular. RESPIRATORY: Clear. MUSCULOSKELETAL: 1+ edema. DERMATOLOGIC: No skin rash. NEUROLOGIC: Intubated. LABORATORY DATA: Hemoglobin is 8.9, potassium 4.2, BUN is 24, creatinine is 5.1. ASSESSMENT AND PLAN: 1. End-stage renal disease, no acute indication for dialysis. We will have dialysis as tolerated. Family discussion today. 2. Edema, controlled. 3. Hypertension, currently hypotensive. 4. Anemia. 5. Acute hypoxic respiratory failure. 6. Prognosis guarded. We will follow.
[2018-02-09] MEDS: Fentanyl 100 MCG/2 ML VIAL SLOW IVP PRN (23:40)
[2018-02-10 04:13] LABS: Anion Gap 15 mmol/L (10-20); BUN (Urea Nitrogen) 32 mg/dL (8.4-25.7); Calc. Creatinine Clearance 16 mL/min (70-130); Calcium 8.5 mg/dL (7.8-10.44); Carbon Dioxide 22 mmol/L (23-31); Chloride 106 mmol/L (98-107); Estimated GFR-MDRD 12; Glucose 145 mg/dL (83-110); Magnesium 1.7 mg/dL (1.6-2.6); Phosphorus 3.2 mg/dL (2.3-4.7); Sodium 139 mmol/L (136-145)
[2018-02-10 04:19] LABS: Band 24 % (5-11); Hemoglobin 8.3 g/dL (14.0-18.0); Lymphocytes 5 % (21-51); MDiff Complete? YES; Mean Corpuscular Hemoglobin 33.4 pg (27.0-31.0); Mean Corpuscular Volume 98.3 fL (78.0-98.0); Mean Platelet Volume 8.5 fL (7.4-10.4); Monocytes 7 % (0-10); Neutrophil 64 % (42-75); PLT Morphology Comment Appears Adequate; Platelet Count 148 thou/uL (130-400); RBC Distribution Width 14.6 % (11.5-14.5); Red Blood Cell (RBC) Count 2.49 mill/uL (4.70-6.10); White Blood Cell (WBC) Count 11.7 thou/uL (4.8-10.8)
[2018-02-10] MEDS: Hydrocortisone Sod Succ/PF 100 mg/2 ml Vial IVP SCH ×4 (06:30→23:45)
[2018-02-10] MEDS: Famotidine 40 MG/5 ML Oral Suspension PER TUBE SCH (10:10)
[2018-02-10] MEDS: Fentanyl 100 MCG/2 ML VIAL SLOW IVP PRN (15:14)
--- NOTE | 2018-02-10 16:56 | PRG ---
DATE OF SERVICE: 02/10/2018 SERVICE: Pulmonary Medicine. INTERVAL HISTORY: The patient is much more awake and alert this morning. He is following commands. He is breathing very comfortably and has no specific complaints. No overnight events occurred. He has been on minimal vent support for the past 48 hours. Today, we switched him over to spontaneous breathing trial, which is essentially made no significant change. He did well with this for a period of time. We have reevaluated multiple times and deemed him appropriate for extubation. He did well through the day. As such, we went ahead and transition him to the floor. We weaned off the pressors overnight and his blood pressures have actually been fantastic. OBJECTIVE: VITAL SIGNS: Afebrile, pulse 85, blood pressure 133/54, respirations 18, saturation 97% on 21% FiO2 and a PEEP of 5. GENERAL: The patient is awake and alert. He is in no apparent distress. LUNGS: Excellent air entry. Dependent crackles are minimal. There is no prolonged expiratory phase or wheezing present. HEART: Normal rate, regular. ABDOMEN: Soft. Nontender, nondistended. Bowel sounds are positive. MUSCULOSKELETAL: No cyanosis or clubbing. There is 3+ pitting in the bilateral upper extremity and trace 1+ pitting in the bilateral lower extremities. NEUROLOGIC: Grossly nonfocal. LABORATORY DATA: WBC 11.7, hemoglobin 8.3, platelets 148,000. Band count is increasing to 24%. Creatinine 4.60 and down trending. Basic metabolic profile , magnesium, and phosphorus fall within the normal limits. Nitrites are positive on the urinalysis. One out of two blood cultures growing Staph epidermidis. ASSESSMENT: 1. Metabolic encephalopathy. 2. End-stage renal disease. 3. Respiratory failure secondary to #1, resolved. 4. Adrenal crisis, resolving. 5. Chronic diastolic heart failure. DISCUSSION AND PLAN: The patient has gotten better without any significant antibiotics or other interventions other than simple steroids and a little bit of fluid resuscitation. He may need higher doses mineralocorticoid into the outpatient setting. We talked to the nursing facility. Apparently, they realized his steroid was left off the discharge orders from the prior hospital stay, and got the patient on his previous dose of hydrocortisone. He was on this for solid 2 days before he came into the hospital. He has no true evidence of end organ damage and had a normal lactate the entire time he was in the hospital. We can continue to monitor for increasing signs of systemic inflammatory response syndrome. If they are present, we may need to consider empiric antibiotics. Palliative care discussions will be continued through time. At this point, however, the patient has no further requirements for inpatient Pulmonary or Critical Care opinion, and I will sign off. Please call with additional questions or concerns moving forward. Critical care time: 30 minutes. KEEGAN
[2018-02-10 17:33] LABS: INR-International Normal Ratio 1.4; Prothrombin Time 17.2 SEC (12.0-14.7)
--- NOTE | 2018-02-10 18:05 | PRG ---
DATE OF SERVICE: 02/10/2018 SUBJECTIVE: Patient was seen and examined at bedside and overnight events noted. Patient denies any shortness of breath or chest pain or palpitation. No history of nausea or vomitin g or diarrhea or fever or chills or cramps. OBJECTIVE: GENERAL: This is an elderly male, in no apparent distress. VITAL SIGNS: Temperature 98.3, pulse 87, respiratory rate 18, blood pressure 133/54. HEENT: Atraumatic, normocephalic. Oral mucosa is moist. NECK: Supple. CARDIOVASCULAR: S1 and S2 heard. Rate and rhythm regular. RESPIRATORY: Clear to auscultation. GASTROINTESTINAL: Abdomen is soft. MUSCULOSKELETAL: No tenderness. No edema. DERMATOLOGIC: No skin rash. NEUROLOGIC: Alert and awake and oriented x3. No focal neurologic deficits. Moving all the extremit ies. PSYCHIATRIC: Mood and affect normal. LABORATORY DATA: Potassium is 4.0, BUN 32, creatinine 1.6. ASSESSMENT AND PLAN: 1. End-stage renal disease. Continue on hemodialysis as tolerated. 2. Edema, controlled. 3. Hypertension, better. 4. Anemia. 5. Panhypopituitarism. 6. Acute hypoxic respiratory failure. 7. We will continue to monitor.
[2018-02-10] MEDS: Warfarin Sodium 2 MG TAB PO SCH ×2 (18:20→18:32)
[2018-02-10] MEDS: Acetaminophen/Codeine 30-300mg Tablet PO PRN (21:25)
[2018-02-11 05:09] LABS: #Lymphocytes 0.9 thou/uL (1.20-3.40); #Monocytes 0.5 thou/uL (0.11-0.59); #Neutrophils 8.7 thou/uL (1.40-6.50); %Eosinophils 0.1 % (0.0-10.0); %Lymphocytes 8.6 % (21.0-51.0); %Monocytes 5.2 % (0.0-10.0); Hemoglobin 8.2 g/dL (14.0-18.0); INR-International Normal Ratio 1.4; Mean Corpuscular HGB CONC 33.8 g/dL (32.0-36.0); Mean Corpuscular Hemoglobin 33.1 pg (27.0-31.0); Mean Platelet Volume 8.2 fL (7.4-10.4); Platelet Count 168 thou/uL (130-400); Prothrombin Time 17.5 SEC (12.0-14.7); RBC Distribution Width 14.6 % (11.5-14.5); Red Blood Cell (RBC) Count 2.47 mill/uL (4.70-6.10); White Blood Cell (WBC) Count 10.1 thou/uL (4.8-10.8)
[2018-02-11 05:16] LABS: Anion Gap 15 mmol/L (10-20); BUN (Urea Nitrogen) 44 mg/dL (8.4-25.7); Calc. Creatinine Clearance 19 mL/min (70-130); Calcium 8.8 mg/dL (7.8-10.44); Carbon Dioxide 24 mmol/L (23-31); Chloride 104 mmol/L (98-107); Estimated GFR-MDRD 14; Glucose 137 mg/dL (83-110); Potassium 3.9 mmol/L (3.5-5.1); Sodium 139 mmol/L (136-145)
[2018-02-11] MEDS: Hydrocortisone Sod Succ/PF 100 mg/2 ml Vial IVP SCH ×3 (05:56→18:09)
[2018-02-11] MEDS: Levothyroxine Sodium 88 MCG TAB PO SCH (05:59)
[2018-02-11] MEDS: Famotidine 20 MG TAB PO SCH ×2 (08:19→10:09)
--- NOTE | 2018-02-11 17:48 | PRG ---
DATE OF SERVICE: 02/11/2018. SUBJECTIVE: Patient was seen and examined at bedside and overnight events noted. Patient denies any shortness of breath or chest pain or palpitation. No history of nausea or vomiting or diarrhea or fever or chills or cramps. OBJECTIVE: General: This is an elderly male, in no apparent distress. Vital signs: Temperature 97.6. Heart Rate 88. Respiratory rate 18. Blood pressure 118/69. HEENT: Atraumatic, normocephalic, Oral mucosa is moist Neck: Supple Cardiovascular: S1S2 heard, Rate and rhythm regular Respiratory: Clear to auscultation Gastrointestinal: Abdomen is soft Musculoskeletal : No tenderness. 1+ edema. Dermatologic : No skin rash Neurologic: Alert and awake and oriented X3, No focal neurologic deficits. Moving all the extremities . Psychiatric: Mood and affect normal LABORATORY DATA: Potassium is 3.9, BUN is 44, creatinine is 4.0. ASSESSMENT AND PLAN: 1. End-stage renal disease. Continue hemodialysis as tolerated. 2. Edema, stable. 3. Hypertension, better. 4. Hypopituitarism. 5. Anemia, chronic. We will continue on dialysis as tolerated. We will continue discussion with the family. We will fol low.
[2018-02-11] MEDS: Warfarin Sodium 2 MG TAB PO SCH (18:08)
[2018-02-11] MEDS: Heparin 10,000 UNITS/ 10 ML VIAL CATH SCH (18:09)
[2018-02-12] MEDS: Hydrocortisone Sod Succ/PF 100 mg/2 ml Vial IVP SCH ×4 (00:32→17:55)
[2018-02-12] MEDS: Heparin 10,000 UNITS/ 10 ML VIAL CATH SCH ×3 (00:52→18:09)
[2018-02-12] MEDS ORDERED: Furosemide 40 MG/4 ML VIAL SLOW IVP SCH ×3 (01:15→21:00)
[2018-02-12 01:56] LABS: INR-International Normal Ratio 1.5; Prothrombin Time 18.4 SEC (12.0-14.7)
[2018-02-12 02:12] LABS: #Lymphocytes 1.3 thou/uL (1.20-3.40); #Monocytes 0.7 thou/uL (0.11-0.59); #Neutrophils 9.3 thou/uL (1.40-6.50); %Basophils 0.4 % (0.0-1.0); %Eosinophils 0.2 % (0.0-10.0); %Lymphocytes 11.1 % (21.0-51.0); %Neutrophils 82.2 % (42.0-75.0); Anisocytosis SLIGHT = 6-15 cells (100X) (0-5/hpf); Hemoglobin 8.3 g/dL (14.0-18.0); MDiff Complete? YES; Mean Corpuscular HGB CONC 32.9 g/dL (32.0-36.0); Mean Corpuscular Hemoglobin 32.6 pg (27.0-31.0); Mean Corpuscular Volume 99.1 fL (78.0-98.0); Platelet Count 193 thou/uL (130-400); RBC Distribution Width 14.8 % (11.5-14.5); Red Blood Cell (RBC) Count 2.56 mill/uL (4.70-6.10); White Blood Cell (WBC) Count 11.3 thou/uL (4.8-10.8)
[2018-02-12 02:21] LABS: Anion Gap 18 mmol/L (10-20); BUN (Urea Nitrogen) 55 mg/dL (8.4-25.7); Calc. Creatinine Clearance 22 mL/min (70-130); Calcium 9.1 mg/dL (7.8-10.44); Carbon Dioxide 23 mmol/L (23-31); Chloride 104 mmol/L (98-107); Estimated GFR-MDRD 16; Glucose 142 mg/dL (83-110); Potassium 3.7 mmol/L (3.5-5.1); Sodium 141 mmol/L (136-145)
[2018-02-12] MEDS: Levothyroxine Sodium 88 MCG TAB PO SCH (05:43)
[2018-02-12] MEDS: Famotidine 20 MG TAB PO SCH (08:06)
--- NOTE | 2018-02-12 08:36 | RAD ---
CHEST 1 VIEW: HISTORY: Shortness of breath. COMPARISON: Radiograph 02/08/2018. FINDINGS: The patient has been extubated. No enteric tube is appreciated. There elevation of the right hemidi aphragm. Small effusions. Mild vascular congestion. Dialysis catheter tip is over the right atrium. IMPRESSION: Likely a combination of right hemidiaphragm elevation as well as right middle and lower lobe atelecta sis. This could be sequelae of a mucus plug. Followup recommended. POS: CET
[2018-02-12] MEDS: Furosemide 40 MG TAB PO SCH ×2 (09:41→14:31)
[2018-02-12] MEDS ORDERED: Heparin 1,000 UNITS/ML VIAL CATH PRN (13:11)
--- NOTE | 2018-02-12 13:24 | EKG ---
Test Reason : Blood Pressure : / mmHG Vent. Rate : 089 BPM Atrial Rate : 089 BPM P-R Int : 130 ms QRS Dur : 172 ms QT Int : 450 ms P-R-T Axes : 050 189 043 degrees QTc Int : 547 ms Electronic ventricular pacemaker Confirmed by BETZY KIRAN ([id number]), online editor KATHRYN ARELLANO ([id number]) on 02/12/2018 1:24:19 PM Referred By: Confirmed By:BETZY KIRAN
--- NOTE | 2018-02-12 13:48 | PRG ---
DATE OF SERVICE: 02/12/2018 SUBJECTIVE: The patient remains confused and had shortness of breath last night and had to give an I V Lasix and respiratory rate got better. Patient was tachypneic. PHYSICAL EXAMINATION: GENERAL: This is an elderly male, confused. VITAL SIGNS: Temperature 98.0, pulse 92, respiratory 18, blood pressure 158/58. HEENT: Atraumatic, normocephalic. Oral mucosa is moist. NECK: Supple. CARDIOVASCULAR: S1 and S2 heard. Rate and rhythm regular. RESPIRATORY: Clear to auscultation. GASTROINTESTINAL: Abdomen is soft. MUSCULOSKELETAL: A 1+ edema. DERMATOLOGIC: No skin rash. NEUROLOGICAL: Confused. PSYCHIATRIC: Mood and affect normal. LABORATORY DATA: Potassium is 3.7, BUN is 55, creatinine . ASSESSMENT AND PLAN: 1. End-stage renal disease. The patient refused to have dialysis, but interestingly his creatinine is getting better, most likely from perfusion, no acute indication for dialysis. We will add Lasix f or edema. 2. Edema. 3. Hyperpituitarism. 4. Hypertension. 5. Anemia. PLAN: We will monitor creatinine. Continue Lasix as tolerated for fluid overload.
[2018-02-12] MEDS: Acetaminophen/Codeine 30-300mg Tablet PO PRN (15:27)
[2018-02-12] MEDS: Warfarin Sodium 2 MG TAB PO SCH (17:51)
[2018-02-12] MEDS: Heparin 10,000 UNITS/ 10 ML VIAL CATH PRN ×2 (17:54→19:54)
[2018-02-13] MEDS: Hydrocortisone Sod Succ/PF 100 mg/2 ml Vial IVP SCH ×4 (00:20→18:03)
[2018-02-13] MEDS: Heparin 10,000 UNITS/ 10 ML VIAL CATH PRN ×4 (00:20→18:04)
[2018-02-13] MEDS: Acetaminophen/Codeine 30-300mg Tablet PO PRN (00:38)
[2018-02-13 04:45] LABS: Anion Gap 18 mmol/L (10-20); BUN (Urea Nitrogen) 67 mg/dL (8.4-25.7); Calc. Creatinine Clearance 23 mL/min (70-130); Carbon Dioxide 24 mmol/L (23-31); Chloride 102 mmol/L (98-107); Estimated GFR-MDRD 18; Glucose 124 mg/dL (83-110); Potassium 3.8 mmol/L (3.5-5.1); Sodium 140 mmol/L (136-145)
[2018-02-13 05:22] LABS: Band 8 % (5-11); Eosinophils 2 % (0-10); Hemoglobin 8.4 g/dL (14.0-18.0); Lymphocytes 24 % (21-51); MDiff Complete? YES; Mean Corpuscular HGB CONC 33.4 g/dL (32.0-36.0); Mean Corpuscular Volume 98.7 fL (78.0-98.0); Mean Platelet Volume 7.7 fL (7.4-10.4); Monocytes 7 % (0-10); Neutrophil 59 % (42-75); PLT Morphology Comment Appears Adequate; Platelet Count 219 thou/uL (130-400); RBC Distribution Width 15.2 % (11.5-14.5); Red Blood Cell (RBC) Count 2.55 mill/uL (4.70-6.10); Target Cells SLIGHT = 2-5 cells (100X) (0-1/hpf); White Blood Cell (WBC) Count 10.2 thou/uL (4.8-10.8)
[2018-02-13] MEDS: Levothyroxine Sodium 88 MCG TAB PO SCH (05:34)
[2018-02-13] MEDS: Famotidine 20 MG TAB PO SCH ×2 (08:54)
[2018-02-13] MEDS ORDERED: Ziprasidone 20 MG VIAL IM SCH (12:00)
--- NOTE | 2018-02-13 12:07 | PRG ---
DATE OF SERVICE: 02/13/2018 SUBJECTIVE: I was asked by Dr. Tate to make an opinion about the patient's x-ray. The patient is combative, is very difficult to examine him. PHYSICAL EXAMINATION: VITAL SIGNS: Temperature 97.5, pulse , respiration 24, O2 sat 95% on 2 liters. HEENT: Unremarkable. NECK: No JVD. LUNGS: Fairly clear. CARDIAC: S1 and S2 regular. LABORATORY DATA: White blood cell count 10, hematocrit 25.2, platelet count 219. Sodium 140, potass ium 3.8, chloride 102, CO2 of 24, BUN 67, creatinine 3.3, glucose 124. I reviewed his x-ray, I think he basically just has a persistently elevated right hemidiaphragm. The reason better when he was intubated because of positive pressure made it better. ASSESSMENT: 1. Persistent elevated right hemidiaphragm -- likely chronic given old x-ray appearances. 2. End-stage renal disease, status post respiratory failure. 3. Chronic diastolic dysfunction. PLAN: At this point, I would not pursue any type of bronchoscopy looking for mucus plugging. The maria c pitt has a DNR and I would focus on a general medical treatment. I will inform Dr. Whiteside.
[2018-02-13] MEDS ORDERED: Furosemide 40 MG/4 ML VIAL SLOW IVP SCH (12:30)
--- NOTE | 2018-02-13 13:45 | PRG ---
DATE OF SERVICE: 02/13/2018 SUBJECTIVE: Patient was seen and examined at bedside and overnight events noted. Patient denies any shortness of breath or chest pain or palpitation. No history of nausea or vomiting or diarrhea or fever or chills or cramps. OBJECTIVE: GENERAL: This is an elderly male in no apparent distress. VITAL SIGNS: Temperature , respiratory rate , blood pressure 95/66. HEENT: Atraumatic, normocephalic. Oral mucosa is moist. NECK: Supple. CARDIOVASCULAR: S1 and S2 heard. Rate and rhythm regular. RESPIRATORY: Clear to auscultation. GASTROINTESTINAL: Abdomen is soft. MUSCULOSKELETAL: No tenderness. No edema. DERMATOLOGIC: No skin rash. NEUROLOGIC: Alert and awake and oriented x3. No focal neurologic deficits. Moving all the extremit ies. PSYCHIATRIC: Mood and affect normal. LABORATORY DATA: Potassium is 3.8, BUN is 67, creatinine is 3.3. ASSESSMENT AND PLAN: 1. End-stage renal disease. We will follow 2. Edema. 3. Hypopituitarism. 4. Hypertension, stable. 5. Anemia. We will monitor labs. 6. Edema. We will give a dose of Lasix today.
[2018-02-13] MEDS ORDERED: Sterile Water 10 ML VIAL FS SCH (14:30)
[2018-02-14] MEDS: Hydrocortisone Sod Succ/PF 100 mg/2 ml Vial IVP SCH ×5 (00:44→23:16)
[2018-02-14] MEDS: Heparin 10,000 UNITS/ 10 ML VIAL CATH PRN ×5 (00:46→23:17)
[2018-02-14] MEDS: Warfarin Sodium 2 MG TAB PO SCH ×2 (00:50→17:14)
[2018-02-14 05:46] LABS: Anion Gap 17 mmol/L (10-20); BUN (Urea Nitrogen) 73 mg/dL (8.4-25.7); Calc. Creatinine Clearance 27 mL/min (70-130); Calcium 8.9 mg/dL (7.8-10.44); Carbon Dioxide 24 mmol/L (23-31); Chloride 107 mmol/L (98-107); Estimated GFR-MDRD 20; Glucose 128 mg/dL (83-110); Potassium 3.5 mmol/L (3.5-5.1); Sodium 144 mmol/L (136-145)
[2018-02-14] MEDS: Levothyroxine Sodium 88 MCG TAB PO SCH (06:07)
[2018-02-14 06:22] LABS: Hemoglobin 8.1 g/dL (14.0-18.0); Hypochromia SLIGHT = 6-15 cells (100X) (0-5/hpf); Lymphocytes 14 % (21-51); MDiff Complete? YES; Mean Corpuscular HGB CONC 33.2 g/dL (32.0-36.0); Mean Corpuscular Hemoglobin 33.1 pg (27.0-31.0); Mean Corpuscular Volume 99.8 fL (78.0-98.0); Mean Platelet Volume 8.2 fL (7.4-10.4); Monocytes 3 % (0-10); Neutrophil 83 % (42-75); Nucleated RBC 1 % (0); PLT Morphology Comment Appears Adequate; Platelet Count 211 thou/uL (130-400); RBC Distribution Width 15.5 % (11.5-14.5); Red Blood Cell (RBC) Count 2.45 mill/uL (4.70-6.10); White Blood Cell (WBC) Count 7.8 thou/uL (4.8-10.8)
[2018-02-14] MEDS: Famotidine 20 MG TAB PO SCH (09:00)
--- NOTE | 2018-02-14 18:43 | PRG ---
DATE OF SERVICE: 02/14/2018 SUBJECTIVE: Patient was seen and examined at bedside and overnight events noted. Patient denies any shortness of breath or chest pain or palpitation. No history of nausea or vomiting or diarrhea or f ever or chills or cramps. OBJECTIVE: GENERAL: This is a well-built male in no apparent distress. VITAL SIGNS: Temperature 97.5, pulse 80, respiratory rate 18, blood pressure 148/69. HEENT: Atraumatic, normocephalic. Oral mucosa is moist. NECK: Supple CARDIOVASCULAR: S1, S2 heard. Rate and rhythm regular. RESPIRATORY: Clear to auscultation. GASTROINTESTINAL: Abdomen is soft. MUSCULOSKELETAL: No tenderness, no edema. DERMATOLOGIC: No skin rash. NEUROLOGIC: Alert, awake, and oriented x3. No focal neurologic deficits. Moving all the extremitie s. PSYCHIATRIC: Mood and affect normal. LABORATORY DATA: Potassium is 3.5, BUN is 73, creatinine is 2.9. ASSESSMENT AND PLAN: 1. End-stage renal disease, stable creatinine. 2. Edema, controlled. 3. Hypopituitarism. Continue steroids. 4. Anemia. 5. Hypertension, stable. 6. Altered mentation. The patient remains confused. The patient is refusing medications and dialysis. We will follow. If the patient does not wish to have any more dialysis, please remove dialysis catheter before discharg e.
[2018-02-15 04:54] LABS: INR-International Normal Ratio 2.2; Prothrombin Time 24.7 SEC (12.0-14.7)
[2018-02-15 05:16] LABS: Anion Gap 13 mmol/L (10-20); BUN (Urea Nitrogen) 74 mg/dL (8.4-25.7); Calc. Creatinine Clearance 30 mL/min (70-130); Calcium 8.9 mg/dL (7.8-10.44); Carbon Dioxide 26 mmol/L (23-31); Chloride 106 mmol/L (98-107); Estimated GFR-MDRD 24; Glucose 139 mg/dL (83-110); Potassium 3.2 mmol/L (3.5-5.1); Sodium 142 mmol/L (136-145)
[2018-02-15 05:44] LABS: Hemoglobin 8.6 g/dL (14.0-18.0); Hypochromia SLIGHT = 6-15 cells (100X) (0-5/hpf); Lymphocytes 12 % (21-51); MDiff Complete? YES; Mean Corpuscular Hemoglobin 32.9 pg (27.0-31.0); Mean Corpuscular Volume 99.8 fL (78.0-98.0); Mean Platelet Volume 8.3 fL (7.4-10.4); Monocytes 5 % (0-10); Neutrophil 83 % (42-75); PLT Morphology Comment Appears Adequate; Platelet Count 233 thou/uL (130-400); RBC Distribution Width 15.7 % (11.5-14.5)
[2018-02-15] MEDS: Levothyroxine Sodium 88 MCG TAB PO SCH (06:10)
[2018-02-15] MEDS: Hydrocortisone Sod Succ/PF 100 mg/2 ml Vial IVP SCH (06:11)
[2018-02-15] MEDS: Heparin 10,000 UNITS/ 10 ML VIAL CATH PRN (06:11)
[2018-02-15] MEDS: Famotidine 20 MG TAB PO SCH (09:14)
--- NOTE | 2018-02-15 09:34 | PRG ---
DATE OF SERVICE: 02/15/2018 OBJECTIVE: GENERAL: This is a well-built white male in no apparent distress. VITAL SIGNS: Temperature 97, pulse 81, respiratory rate 18, blood pressure 154/64. LABORATORY DATA: Potassium is 3.2, BUN 74, creatinine is 2.5. ASSESSMENT AND PLAN: 1. Acute kidney injury on chronic kidney disease. Patient's urine output and renal function got bet ter. No acute indication for dialysis. Place ____ dialysis catheter before discharge. The patient is refusing dialysis. 2. Anemia. 3. Hypopituitarism. 4. Edema. 5. Anemia. 6. Hypertension. 7. Altered mentation. No acute indication for dialysis.
[2018-02-15] MEDS: Potassium Chloride 20 MEQ TAB PO SCH ×3 (11:56→20:44)
[2018-02-15] MEDS: Warfarin Sodium 3 MG TAB PO SCH (16:05)
[2018-02-15] MEDS: Hydrocortisone 10 mg Tablet PO SCH (20:44)
[2018-02-15] MEDS: Carvedilol 6.25 MG TAB PO SCH (20:44)
[2018-02-16 05:09] LABS: INR-International Normal Ratio 2.5; Prothrombin Time 26.9 SEC (12.0-14.7)
[2018-02-16] MEDS: Levothyroxine Sodium 88 MCG TAB PO SCH (05:10)
[2018-02-16 05:27] LABS: Anion Gap 11 mmol/L (10-20); BUN (Urea Nitrogen) 66 mg/dL (8.4-25.7); Calc. Creatinine Clearance 35 mL/min (70-130); Calcium 8.8 mg/dL (7.8-10.44); Carbon Dioxide 28 mmol/L (23-31); Chloride 106 mmol/L (98-107); Estimated GFR-MDRD 29; Glucose 135 mg/dL (83-110); Potassium 3.8 mmol/L (3.5-5.1); Sodium 141 mmol/L (136-145)
[2018-02-16 05:28] LABS: #Eosinphils 0.3 thou/uL (0.0-0.7); #Lymphocytes 0.9 thou/uL (1.20-3.40); #Monocytes 0.5 thou/uL (0.11-0.59); #Neutrophils 6.7 thou/uL (1.40-6.50); %Basophils 0.1 % (0.0-1.0); %Eosinophils 3.6 % (0.0-10.0); %Lymphocytes 11.2 % (21.0-51.0); %Monocytes 5.7 % (0.0-10.0); %Neutrophils 79.5 % (42.0-75.0); Hemoglobin 8.6 g/dL (14.0-18.0); Mean Corpuscular HGB CONC 32.4 g/dL (32.0-36.0); Mean Corpuscular Hemoglobin 32.7 pg (27.0-31.0); Mean Platelet Volume 8.2 fL (7.4-10.4); Platelet Count 234 thou/uL (130-400); RBC Distribution Width 16.1 % (11.5-14.5); Red Blood Cell (RBC) Count 2.64 mill/uL (4.70-6.10); White Blood Cell (WBC) Count 8.4 thou/uL (4.8-10.8)
[2018-02-16 08:02] VITALS: BMI 33.3
[2018-02-16] MEDS: Carvedilol 6.25 MG TAB PO SCH ×2 (08:47→20:00)
[2018-02-16] MEDS: Hydrocortisone 10 mg Tablet PO SCH ×2 (08:48→20:00)
[2018-02-16] MEDS: Famotidine 20 MG TAB PO SCH (08:48)
--- NOTE | 2018-02-16 08:48 | PRG ---
DATE OF SERVICE: 02/16/2018. SUBJECTIVE: Patient was seen and examined at bedside and overnight events noted. Patient denies any shortness of breath or chest pain or palpitation. No history of nausea or vomiting or diarrhea or f ever or chills or cramps. OBJECTIVE: GENERAL: This is an elderly male in no apparent distress. VITAL SIGNS: Temperature 98.3, pulse 72, respiratory rate 18, blood pressure 153/72. HEENT: Atraumatic, normocephalic. Oral mucosa is moist. NECK: Supple. CARDIOVASCULAR: S1, S2 heard. Rate and rhythm regular. RESPIRATORY: Clear to auscultation. GASTROINTESTINAL: Abdomen is soft. MUSCULOSKELETAL: No tenderness, no edema. DERMATOLOGIC: No skin rash. NEUROLOGIC: Alert and awake and oriented x3. No focal neurologic deficits. Moving all the extremit ies. PSYCHIATRIC: Mood and affect normal. LABORATORY DATA: Potassium 3.2, BUN 66, creatinine is 2.1. ASSESSMENT AND PLAN: 1. Acute kidney injury on chronic kidney disease stage 4. Renal function was improving without dial ysis, it seems like the patient had renal recovery and he is refusing dialysis. No more dialysis is indicated. The nurse was notified to remove dialysis catheter before discharge. 2. Anemia, stable. 3. Edema, controlled. 4. Hypertension. 5. Altered mentation. 6. We will continue to monitor. Avoid nephrotoxins.
--- NOTE | 2018-02-16 14:32 | OP ---
DATE OF PROCEDURE: 02/16/2018 PREOPERATIVE DIAGNOSES: Undesired hemodialysis catheter, DNR, has decided not to do dialysis, status post 01/07/2018, right arm fistula and hemodialysis catheter with good bruit thrill right arm fistul a. POSTOPERATIVE DIAGNOSES: Undesired hemodialysis catheter, DNR, has decided not to do dialysis, statu s post 01/07/2018, right arm fistula and hemodialysis catheter with good bruit thrill right arm fistu la. PROCEDURE: At the patient's bedside, alcohol prep, local anesthetic infiltrated into skin and subcut aneous tissue. Catheter and cuff removed intact. Pressure held to hemostatic. The patient tolerate d the procedure well.
[2018-02-16] MEDS: Warfarin Sodium 3 MG TAB PO SCH (17:59)
[2018-02-17 05:08] LABS: #Eosinphils 0.1 thou/uL (0.0-0.7); #Lymphocytes 1.1 thou/uL (1.20-3.40); #Monocytes 0.4 thou/uL (0.11-0.59); #Neutrophils 6.4 thou/uL (1.40-6.50); %Basophils 0.2 % (0.0-1.0); %Eosinophils 0.9 % (0.0-10.0); %Lymphocytes 13.7 % (21.0-51.0); %Monocytes 5.3 % (0.0-10.0); Hemoglobin 9.1 g/dL (14.0-18.0); Mean Corpuscular HGB CONC 32.5 g/dL (32.0-36.0); Mean Platelet Volume 8.5 fL (7.4-10.4); Platelet Count 243 thou/uL (130-400); RBC Distribution Width 16.1 % (11.5-14.5); Red Blood Cell (RBC) Count 2.75 mill/uL (4.70-6.10)
[2018-02-17 05:12] LABS: INR-International Normal Ratio 2.4; Prothrombin Time 26.1 SEC (12.0-14.7)
[2018-02-17] MEDS: Levothyroxine Sodium 88 MCG TAB PO SCH (05:31)
[2018-02-17 05:34] LABS: Anion Gap 13 mmol/L (10-20); BUN (Urea Nitrogen) 62 mg/dL (8.4-25.7); Calc. Creatinine Clearance 38 mL/min (70-130); Calcium 8.9 mg/dL (7.8-10.44); Carbon Dioxide 26 mmol/L (23-31); Chloride 106 mmol/L (98-107); Estimated GFR-MDRD 32; Glucose 126 mg/dL (83-110); Potassium 3.6 mmol/L (3.5-5.1); Sodium 141 mmol/L (136-145)
[2018-02-17] MEDS: Famotidine 20 MG TAB PO SCH (08:34)
[2018-02-17] MEDS: Carvedilol 6.25 MG TAB PO SCH ×2 (08:35→20:29)
[2018-02-17] MEDS: Hydrocortisone 10 mg Tablet PO SCH ×2 (08:36→20:29)
--- NOTE | 2018-02-17 09:53 | PRG ---
Patient Name: BUBBA BUENROSTRO Date of service: 02/17/2018 Subjective: Patient was seen and examined at bedside and overnight events noted. Patient denies any shortness of breath or chest pain or palpitation. No history of nausea or vomiting or diarrhea or fever or chills or cramps. Objective: General: This is an elderly male in no apparent distress. Vital signs: Temperature 97, pulse 80, respirations 18, blood pressure 154/62. HEENT: Atraumatic, normocephalic. Oral mucosa is moist. Neck: Supple. Cardiovascular: S1 S2 heard. Rate and rhythm regular. Respiratory: Clear to auscultation. Gastrointestinal: Abdomen is soft. Musculoskeletal: No tenderness. No edema. Dermatologic: No skin rash. Neurologic: Alert and awake and oriented X3. No focal neurologic deficits. Moving all the extremit ies. Psychiatric: Mood and affect normal. ABORATORY DATA: Potassium is 3.6, BUN 62, creatinine is 2.7. ASSESSMENT AND PLAN: 1. Acute kidney injury on chronic kidney disease stage 3. Renal function with improvement, most lik eloy be holding diuretics. 2. Anemia. 3. Edema. 4. Hypertension. 5. Altered mentation. 6. Hypopituitarism. Overall stable.
[2018-02-17] MEDS: Warfarin Sodium 3 MG TAB PO SCH (17:47)
[2018-02-18] MEDS: Carvedilol 6.25 MG TAB PO SCH (09:55)
[2018-02-18] MEDS: Levothyroxine Sodium 88 MCG TAB PO SCH (09:55)
[2018-02-18] MEDS: Famotidine 20 MG TAB PO SCH (09:55)
[2018-02-18] MEDS: Hydrocortisone 10 mg Tablet PO SCH (12:15)
[2018-02-18 12:39] LABS: INR-International Normal Ratio 2.4; Prothrombin Time 26.2 SEC (12.0-14.7)
[2018-02-18 12:44] LABS: Anion Gap 13 mmol/L (10-20); BUN (Urea Nitrogen) 57 mg/dL (8.4-25.7); Calc. Creatinine Clearance 41 mL/min (70-130); Calcium 8.6 mg/dL (7.8-10.44); Carbon Dioxide 24 mmol/L (23-31); Chloride 107 mmol/L (98-107); Estimated GFR-MDRD 35; Glucose 113 mg/dL (83-110); Potassium 3.6 mmol/L (3.5-5.1); Sodium 140 mmol/L (136-145)
--- NOTE | 2018-02-18 15:38 | PRG ---
DATE OF SERVICE: 02/18/2018 SUBJECTIVE: Patient was seen and examined at bedside and overnight events noted. Patient denies any shortness of breath or chest pain or palpitation. No history of nausea or vomiting or diarrhea or f ever or chills or cramps. OBJECTIVE: GENERAL: This is a well-developed male, in no acute distress VITAL SIGNS: Temperature 98.7, heart rate 84, respiratory rate 18, and blood pressure 134/62. HEENT: Atraumatic, normocephalic. Oral mucosa is moist. NECK: Supple. CARDIOVASCULAR: S1, S2 heard. Rate and rhythm regular. RESPIRATORY: Clear to auscultation. GASTROINTESTINAL: Abdomen is soft. MUSCULOSKELETAL: No tenderness, no edema. DERMATOLOGIC: No skin rash NEUROLOGIC: Alert and awake and oriented x3. No focal neurologic deficits. Moving all the extremit ies. PSYCHIATRIC: Mood and affect normal LABORATORY DATA: Potassium is 3.6, BUN is 57, creatinine is 1.84. ASSESSMENT AND PLAN: 1. Acute kidney injury on chronic kidney disease, stage 3. Renal function is improving. 2. Edema, controlled. 3. Hypertension. 4. . 5. Hypopituitarism. Continue home medication. Labs are stable on holding the diuretics. We will follow for dialysis.
[2018-02-18] MEDS: Warfarin Sodium 3 MG TAB PO SCH (16:39)
[2018-02-18 16:46] VITALS: BP 150/62; TEMP 98.4
[2018-02-18 17:28] LABS: Free T4 (Free Thyroxine) 0.69 ng/dL (0.70-1.48); Thyroid Stimulating Hormone 0.1971 uIU/mL (0.35-4.94)
[2018-02-18 17:42] LABS: #Eosinphils 0.3 thou/uL (0.0-0.7); #Lymphocytes 0.9 thou/uL (1.20-3.40); #Monocytes 0.4 thou/uL (0.11-0.59); #Neutrophils 6.7 thou/uL (1.40-6.50); %Basophils 0.1 % (0.0-1.0); %Eosinophils 3.3 % (0.0-10.0); %Lymphocytes 10.9 % (21.0-51.0); %Monocytes 4.4 % (0.0-10.0); %Neutrophils 81.2 % (42.0-75.0); Hemoglobin 8.8 g/dL (14.0-18.0); Mean Corpuscular HGB CONC 32.8 g/dL (32.0-36.0); Mean Corpuscular Hemoglobin 33.5 pg (27.0-31.0); Platelet Count 213 thou/uL (130-400); Red Blood Cell (RBC) Count 2.63 mill/uL (4.70-6.10); White Blood Cell (WBC) Count 8.3 thou/uL (4.8-10.8)
[2018-02-23] MEDS ORDERED: Hydrocortisone 10 mg Tablet PO SCH (09:00)
== END 2018-02-18 17:46 | DRG 208 ==
LOC: ERS 09:52 → CCU 14:02 → T4-A 02-10 16:28
PROVIDERS: ADMIT Internal Medicine; ATTEND Internal Medicine
PROC: 5A1945Z Respiratory Ventilation, 24-96 Consecutive Hours (ICD-10-PCS; principal; 2018-02-08)
PROC: 0BH17EZ Insertion of Endotracheal Airway into Trachea, Via Natural or Artificial Opening (ICD-10-PCS; 2018-02-08)
PROC: 05PYX3Z Removal of Infusion Device from Upper Vein, External Approach (ICD-10-PCS; 2018-02-16)
DX: J96.01 Acute respiratory failure with hypoxia (principal); N18.6 End stage renal disease; G93.41 Metabolic encephalopathy; N17.9 Acute kidney failure, unspecified; I50.32 Chronic diastolic (congestive) heart failure; E27.2 Addisonian crisis; E23.0 Hypopituitarism; I42.9 Cardiomyopathy, unspecified; I48.91 Unspecified atrial fibrillation; I95.9 Hypotension, unspecified; Z99.2 Dependence on renal dialysis; Z87.440 Personal history of urinary (tract) infections; Z86.711 Personal history of pulmonary embolism; Z79.899 Other long term (current) drug therapy; Z79.01 Long term (current) use of anticoagulants; Z53.29 Procedure and treatment not carried out because of patient's decision for other reasons; D64.9 Anemia, unspecified; Z79.891 Long term (current) use of opiate analgesic; Z88.2 Allergy status to sulfonamides; Z88.1 Allergy status to other antibiotic agents; Z91.048 Other nonmedicinal substance allergy status; Z87.891 Personal history of nicotine dependence
CPT/HCPCS: 31500; 36415; 36416; 70450; 71045; 74176; 80048; 80053; 81003; 81015; 82533; 82553; 82805; 83605; 83735; 84100; 84439; 84443; 84484; 85025; 85610; 87040; 87149; 90471; 90670; 93005; 94002; 94003; 94640; 96361; 96365; 96366; 96367; 96375; 96376; A4216; G0009; G8978-GP-CM; G8979-GP-CL; G8987-GO-CM; G8988-GO-CJ; J0692; J1642; J1644; J1720; J1940; J2543; J3010; J3370; J3486; J7050; J7620; P9047

== ENCOUNTER 2018-02-19 09:56 | Observation (INO) | payer MEDICARE, OTHER ==
[2018-02-19 10:41] LABS: #Eosinphils 0.4 thou/uL (0.0-0.7); #Lymphocytes 2.4 thou/uL (1.20-3.40); #Monocytes 0.7 thou/uL (0.11-0.59); #Neutrophils 7.1 thou/uL (1.40-6.50); %Basophils 0.3 % (0.0-1.0); %Eosinophils 3.4 % (0.0-10.0); %Lymphocytes 22.5 % (21.0-51.0); %Monocytes 6.5 % (0.0-10.0); %Neutrophils 67.4 % (42.0-75.0); Hemoglobin 9.5 g/dL (14.0-18.0); Mean Corpuscular HGB CONC 32.3 g/dL (32.0-36.0); Mean Corpuscular Hemoglobin 32.3 pg (27.0-31.0); Mean Corpuscular Volume 99.9 fL (78.0-98.0); Mean Platelet Volume 8.7 fL (7.4-10.4); Platelet Count 242 thou/uL (130-400); RBC Distribution Width 15.8 % (11.5-14.5); Red Blood Cell (RBC) Count 2.93 mill/uL (4.70-6.10); White Blood Cell (WBC) Count 10.6 thou/uL (4.8-10.8)
[2018-02-19 10:56] LABS: INR-International Normal Ratio 2.5; Prothrombin Time 26.6 SEC (12.0-14.7)
[2018-02-19 11:07] LABS: ALT (SGPT) 24 U/L (8-55); AST (SGOT) 16 U/L (5-34); Albumin 3.3 g/dL (3.4-4.8); Alkaline Phosphatase 111 U/L (40-150); Anion Gap 13 mmol/L (10-20); BUN (Urea Nitrogen) 47 mg/dL (8.4-25.7); Bilirubin, Total 0.7 mg/dL (0.2-1.2); CK (CPK) 53 U/L (30-200); Calc. Creatinine Clearance 0 mL/min (70-130); Calcium 8.7 mg/dL (7.8-10.44); Carbon Dioxide 23 mmol/L (23-31); Chloride 107 mmol/L (98-107); Estimated GFR-MDRD 37; Glucose 136 mg/dL (83-110); Potassium 3.3 mmol/L (3.5-5.1); Protein, Total 5.3 g/dL (5.8-8.1); Sodium 140 mmol/L (136-145)
[2018-02-19 11:10] LABS: CKMB 4.1 ng/mL (0-6.6); Troponin I 0.064 ng/mL (< 0.028)
[2018-02-19] MEDS ORDERED: Furosemide 40 MG/4 ML VIAL ONE (11:36)
--- NOTE | 2018-02-19 12:06 | RAD ---
UPRIGHT PORTABLE CHEST 1 VIEW: Date: 02/19/18 HISTORY: 87-year-old male with chest pain. COMPARISON: 02/12/18. FINDINGS: Left ICD. The previously noted right venous access catheter has been removed. Marked right hemidiaphr agm elevation. Borderline cardiomegaly with poor inspiratory effort with some bilateral vascular enzo estion, particularly in the infrahilar regions and lower lung zones, but overall stable. IMPRESSION: Overall stable chest. Poor inspiration with right hemidiaphragm elevation and bibasilar linear and in terstitial parenchymal changes. No new process. No pneumothorax. POS: [facility]
--- NOTE | 2018-02-19 12:16 | PDOC.FPRHP ---
- History of Present Illness Chief Complaint: chest pain History of Present Illness: Mr. Villa presents to the ED from [facility] with the complaint of chest pain. He is unable to provide a detailed/accurate history. The following is obtained from EMS and previous medical records. Chest pain radiating to the left arm since last night, sharp and dull. Currently not experiencing pain, shortness of breath or palpitations, headache, dizziness, or visual changes. reports some nausea. ED Course: CBC, CMP, BNP, Trop/ckmb, CXR, coags, EKG - Allergies/Adverse Reactions Allergies Allergy/AdvReac Type Severity Reaction Status Date / Time ciprofloxacin HCl Allergy Verified 02/19/18 14:41 [From Cipro] iodine Allergy Verified 02/19/18 14:41 nitrofurantoin Allergy Verified 02/19/18 14:41 macrocrystalline [From Macrodantin] Sulfa (Sulfonamide Allergy Verified 02/19/18 14:41 Antibiotics) - Home Medications Medication Instructions Recorded Confirmed Type Levothyroxine Sodium [Synthroid] 88 mcg PO DAILY 05/05/16 02/19/18 History Warfarin Sodium 4 mg PO ASDIR 02/16/17 02/19/18 History Carvedilol [Coreg] 6.25 mg PO BID tab 01/10/18 02/19/18 Rx Ranitidine HCl 150 mg PO BID 02/01/18 02/19/18 History Hydrocortisone [Cortef] 30 mg PO BID 02/10/18 02/19/18 History Artificial Tear Ointment 1 applic EA EYE ASDIR PRN 02/18/18 02/19/18 History [Lacri-Lube Ointment] Ipratropium/Albuterol Sulfate 3 ml NEB Q6HR PRN 02/18/18 02/19/18 History [Duoneb] Gabapentin 100 mg PO TID PRN 02/19/18 02/19/18 History Midodrine HCl 10 mg PO DAILY 02/19/18 02/19/18 History busPIRone HCl [Buspirone HCl] 10 mg PO BID 02/19/18 02/19/18 History - History PMHx:panhypopituitarism, nephrolithiasis and recurrent UTI, PE, ESRD not on dialysis, cardiomyopathy with afib PSHx: AICD placed FHx:NC Social:former smoker, [facility] pt - Review of Systems ROS unobtainable: due to mental status - Vital signs BP: [128/58] HR: [80] RR: [17] Tmax: [98] Pox: [98]% on [RA] Wt: [101.2kg] - Physical Exam Constitutional: NAD, other (alert, orientedx1 (Tammi is president)) HEENT: normocephalic and atraumatic, conjunctiva clear, grossly normal vision, other (decreased hearing) Neck: supple, trachea midline, no bruits Chest: no lesions, other (tender to palpation over left side) Heart: RRR, normal S1/S2, no murmurs/rubs/gallops, pulses present, other (mild pitting edema) Lungs: CTAB, no respiratory distress, no wheezing, other (decreased breath sounds) Abdomen: soft, non-tender, bowel sounds present, no masses/distention Musculoskeletal: normal structure, ROM grossly normal Neurological: no focal deficit, CN II-XII intact, normal sensation Skin: no rash/lesions, good turgor Heme/Lymphatic: no unusual bruising or bleeding FMR H&P: Results - Labs Result Diagrams: 02/19/18 10:30 02/19/18 10:30 Lab results: WBC 10.6 thou/uL (4.8-10.8) 02/19/18 10:30 Hgb 9.5 g/dL (14.0-18.0) L 02/19/18 10:30 Hct 29.2 % (42.0-52.0) L 02/19/18 10:30 MCV 99.9 fL (78.0-98.0) H 02/19/18 10:30 Plt Count 242 thou/uL (130-400) 02/19/18 10:30 Neutrophils % 67.4 % (42.0-75.0) 02/19/18 10:30 Sodium 140 mmol/L (136-145) 02/19/18 10:30 Potassium 3.3 mmol/L (3.5-5.1) L 02/19/18 10:30 Chloride 107 mmol/L (98-107) 02/19/18 10:30 Carbon Dioxide 23 mmol/L (23-31) 02/19/18 10:30 BUN 47 mg/dL (8.4-25.7) H 02/19/18 10:30 Creatinine 1.74 mg/dL (0.6-1.3) H 02/19/18 10:30 Glucose 136 mg/dL (83-110) H 02/19/18 10:30 Calcium 8.7 mg/dL (7.8-10.44) 02/19/18 10:30 Total Bilirubin 0.7 mg/dL (0.2-1.2) 02/19/18 10:30 AST 16 U/L (5-34) 02/19/18 10:30 ALT 24 U/L (8-55) 02/19/18 10:30 Alkaline Phosphatase 111 U/L (40-150) 02/19/18 10:30 Creatine Kinase 53 U/L (30-200) 02/19/18 10:30 CK-MB (CK-2) 4.1 ng/mL (0-6.6) 02/19/18 10:30 B-Natriuretic Peptide 876.4 pg/mL (0-100) H 02/19/18 10:30 Serum Total Protein 5.3 g/dL (5.8-8.1) L 02/19/18 10:30 Albumin 3.3 g/dL (3.4-4.8) L 02/19/18 10:30 - EKG Interpretation EKG: paced rhythm, no ST elevation, T wave inversion FMR H&P: A/P - Problem List (1) Atypical chest pain Current Visit: Yes Status: Acute Code(s): R07.89 - OTHER CHEST PAIN (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 (3) ESRD (end stage renal disease) Current Visit: Yes Status: Acute Code(s): N18.6 - END STAGE RENAL DISEASE (4) Chronic pain Current Visit: No Status: Chronic Code(s): G89.29 - OTHER CHRONIC PAIN Qualifiers: Chronic pain type: chronic pain syndrome Qualified Code(s): G89.4 - Chronic pain syndrome (5) Chronic anemia Current Visit: No Status: Chronic Code(s): D64.9 - ANEMIA, UNSPECIFIED - Plan atypical chest pain - r/o ischemia: tropsx3, EKG for returned CP - Hx of chest/shoulder pain - On warfarin, continue - ASA not indicated at this time. Diastolic HF - BNP elevated from baseline, given 40mg lasix in ED - no SOB or suspicious CXR - monitor respiratory status - strick IandO, hold further lasix, no IVF ESRD, refusing dialysis - CMP at baseline, continue to monitor chronic pain syndrome - likely cause of chest pain Anemia of chronic disease - at baseline, monitor daily CBC Hx of Afib - Paced rhythm, continue home medicine PPx: continue home meds Code: Full, documented as DNR in past, obtain medical records or contact family Dispo: poss DC pending neg. tropx3 FMR H&P: Upper Level - Pertinent history 87 y/o M with ESRD and CHF presents for chest pain. Unsure when it started, but he was discharged yesterday to the [facility] after a 10 day stay where he was seen and decided to stop HD. He was intubated after AMS and did have several days in the ICU. HE was unable to provide specifics of his pain. Family notified after seeing his code status from yesterday as DNR. - Pertinent findings NEURO: A&O x1. no focal deficits per exam. CARDIO: RRR, 2/6 sytolic murmur. No gallop. - Plan Date/Time: 02/19/18 12[address] DO, have evaluated this patient and agree with findings/plan as outlined by internet designer resident. Pertinent changes/additions are listed here. #. Chest Pain Likely MSK as he is tender in the shoulder/chest area. Troponins bumped, but likely 2/2 demand and ESRD. Will trend Troponins and check EKG. #. AMS Unsure of baseline, but he is near baseline status. Possibly metabolic/ Uremic etiology, but will continue to monitor labs and clinical status. #. ESRD Per chart, he refused continued HD treatments and is being followed by Dr Mckeon. We will monitor his output and renal function. Maintenance IVF as he does have CHF as well. # HFpEF - BNP slightly elevated. Monitor. S/p 40mg Lasix in ED # A-Fib Continue home warfarin. INR Therapeutic. DISPO: dishcarge Tomorrow. Attending Addendum - Attending Addendum Date/Time: 02/19/18 2035 I personally evaluated the patient and discussed the management with Dr. Shahid I agree with the History, Examination, Assessment and Plan documented above with any addition or exceptions noted below- Briefly this is a 87 yo male with h /o recent hospitalization for respiratory failure secondary to metabolic encephalopathy and renal failure and discharged to [facility] yesterday presented today with c/o left sided chest pain radiating to upper arm. No diaphoresis or SOB. Unable to obtain further history from patient. PMH/PSH/All/Meds reviewed and agree with resident's documentation. Afebrile VSS. Exam repeated by me and agree with resident's findings. Troponin- indeterminate. EKG-paced rhythm. A/P: Atypical chest pain- reproducible on palpation. Will check serial cardiac enzymes.
[2018-02-19 12:56] LABS: Troponin I 0.066 ng/mL (< 0.028)
[2018-02-19] MEDS ORDERED: Ondansetron ODT 4 MG TAB PO PRN (13:44)
[2018-02-19] MEDS ORDERED: Acetaminophen 325 MG TAB PO PRN (13:44)
[2018-02-19 14:43] VITALS: BMI 33.9
[2018-02-19 16:59] LABS: Troponin I 0.051 ng/mL (< 0.028)
[2018-02-20 05:42] LABS: #Eosinphils 0.3 thou/uL (0.0-0.7); #Lymphocytes 2.1 thou/uL (1.20-3.40); #Monocytes 0.6 thou/uL (0.11-0.59); #Neutrophils 5.1 thou/uL (1.40-6.50); %Basophils 0.2 % (0.0-1.0); %Eosinophils 3.4 % (0.0-10.0); %Lymphocytes 25.8 % (21.0-51.0); %Neutrophils 63.6 % (42.0-75.0); Hemoglobin 9.9 g/dL (14.0-18.0); Mean Corpuscular HGB CONC 32.7 g/dL (32.0-36.0); Mean Corpuscular Hemoglobin 33.2 pg (27.0-31.0); Mean Platelet Volume 8.9 fL (7.4-10.4); Platelet Count 219 thou/uL (130-400); RBC Distribution Width 15.5 % (11.5-14.5); Red Blood Cell (RBC) Count 2.98 mill/uL (4.70-6.10)
[2018-02-20 05:56] LABS: ALT (SGPT) 23 U/L (8-55); AST (SGOT) 18 U/L (5-34); Albumin 3.2 g/dL (3.4-4.8); Alkaline Phosphatase 104 U/L (40-150); Anion Gap 13 mmol/L (10-20); BUN (Urea Nitrogen) 43 mg/dL (8.4-25.7); Bilirubin, Total 0.8 mg/dL (0.2-1.2); Calc. Creatinine Clearance 44 mL/min (70-130); Calcium 8.4 mg/dL (7.8-10.44); Carbon Dioxide 22 mmol/L (23-31); Chloride 109 mmol/L (98-107); Estimated GFR-MDRD 40; Globulin 2.2 g/dL (2.4-3.5); Glucose 81 mg/dL (83-110); Potassium 3.2 mmol/L (3.5-5.1); Protein, Total 5.4 g/dL (5.8-8.1); Sodium 141 mmol/L (136-145)
--- NOTE | 2018-02-20 06:15 | PDOC.FM ---
- Subjective Subjective: Mr. Villa reports continued pain over his left upper ribs and shoulder today. Denies SOB, unsure of surroundings. - Objective Vital Signs & Weight: Vital Signs (12 hours) Temp Pulse Resp BP Pulse Ox 02/20/18 04:25 97.5 F L 84 17 108/51 L 95 02/19/18 20:25 98 02/19/18 20:00 97.6 F 85 16 120/86 98 Weight Weight 101.151 kg I&O: 02/18/18 02/19/18 02/20/18 06:59 06:59 06:59 Intake Total 0 Balance 0 Result Diagrams: 02/20/18 04:59 02/20/18 04:59 <Osvaldo Shahid - Last Filed: 02/20/18 07:53> - Objective Vital Signs & Weight: Vital Signs (12 hours) Temp Pulse Resp BP Pulse Ox 02/20/18 04:25 97.5 F L 84 17 108/51 L 95 Weight Weight 101.423 kg I&O: 02/19/18 02/20/18 02/21/18 06:59 06:59 06:59 Intake Total 300 Balance 300 Result Diagrams: 02/20/18 04:59 02/20/18 04:59 <Jaye Levy - Last Filed: 02/20/18 11:42> Phys Exam - Physical Examination Constitutional: NAD HEENT: moist MMs Respiratory: no wheezing, no rales, no rhonchi, clear to auscultation bilateral Cardiovascular: RRR, no significant murmur, no rub pain with palpation over AICD/chest wall Gastrointestinal: soft, no distention Musculoskeletal: no edema, pulses present Neurological: non-focal, moves all 4 limbs Psychiatric: normal affect Skin: no rash <Osvaldo Shahid - Last Filed: 02/20/18 07:53> Dx/Plan (1) Atypical chest pain Code(s): R07.89 - OTHER CHEST PAIN Status: Acute (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 Code(s): I50.40 - UNSP COMBINED SYSTOLIC AND DIASTOLIC (CONGESTIVE) HRT FAIL Status: Chronic Qualifiers: Heart failure chronicity: acute on chronic Qualified Code(s): I50.43 - Acute on chronic combined systolic (congestive) and diastolic (congestive) heart failure (3) ESRD (end stage renal disease) Code(s): N18.6 - END STAGE RENAL DISEASE Status: Acute (4) Chronic pain Code(s): G89.29 - OTHER CHRONIC PAIN Status: Chronic Qualifiers: Chronic pain type: chronic pain syndrome Qualified Code(s): G89.4 - Chronic pain syndrome (5) Chronic anemia Code(s): D64.9 - ANEMIA, UNSPECIFIED Status: Chronic - Plan Plan: atypical chest pain - r/o ischemia: tropsx3, EKG for returned CP - Hx of chest/shoulder pain - On warfarin, continue - ASA not indicated at this time. 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 Code(s): I50.40 - UNSP COMBINED SYSTOLIC AND DIASTOLIC (CONGESTIVE) HRT FAIL Status: Chronic Qualifiers: Heart failure chronicity: acute on chronic Qualified Code(s): I50.43 - Acute on chronic combined systolic (congestive) and diastolic (congestive) heart failure (3) ESRD (end stage renal disease) Code(s): N18.6 - END STAGE RENAL DISEASE Status: Acute (4) Chronic pain Code(s): G89.29 - OTHER CHRONIC PAIN Status: Chronic Qualifiers: Chronic pain type: chronic pain syndrome Qualified Code(s): G89.4 - Chronic pain syndrome (5) Chronic anemia Code(s): D64.9 - ANEMIA, UNSPECIFIED Status: Chronic <Jaye Levy - Last Filed: 02/20/18 11:42> Attending Addendum - Attending Addendum Date/Time: 02/20/18 1108 I personally evaluated the patient and discussed the management with Dr. West I agree with the History, Examination, Assessment and Plan documented above with any addition or exceptions noted below- Patient c/o shoulder pain otherwise no complaints. Afebrile VSS A/P: 1) Chest pain- reproducible; troponins are at or below his baseline. Suspect musculoskeletal pain. Will give analgesics. Plan to d/c back to [place] today if they will accept. 2) FPC anticoagulation- INAR in therapeutic range. Continue current dose. <Jaye Levy - Last Filed: 02/20/18 11:42>
[2018-02-20] MEDS ORDERED: Potassium Chloride 20 MEQ TAB PO SCH (07:00)
[2018-02-20] MEDS ORDERED: Gabapentin 100 MG CAP PO PRN (09:52)
[2018-02-20] MEDS ORDERED: Lacri-Lube Opth Oint 3.5 GM TUBE EA EYE PRN (09:52)
[2018-02-20] MEDS ORDERED: Acetaminophen/Codeine 30-300mg Tablet PO PRN (09:54)
[2018-02-20 12:39] VITALS: TEMP 97.6
[2018-02-20 12:59] VITALS: BP 133/54
[2018-02-20] MEDS ORDERED: Warfarin Sodium 2 MG TAB PO SCH (17:00)
[2018-02-20] MEDS ORDERED: Hydrocortisone 10 mg Tablet PO SCH (21:00)
[2018-02-20] MEDS ORDERED: busPIRone HCl 10 MG TAB PO SCH (21:00)
[2018-02-20] MEDS ORDERED: Carvedilol 3.125 MG TAB PO SCH (21:00)
[2018-02-21] MEDS ORDERED: Levothyroxine Sodium 100 MCG TAB PO SCH (06:00)
[2018-02-21] MEDS ORDERED: Famotidine 20 MG TAB PO SCH (09:00)
[2018-02-21] MEDS ORDERED: Midodrine HCl 5 MG TAB PO SCH (09:00)
--- NOTE | 2018-02-21 09:59 | DIS-2 ---
DATE OF ADMISSION: 02/19/2018 DATE OF DISCHARGE: 02/20/2018 RESIDENT: Dr. Osvaldo Shahid ADMITTING ATTENDING: Dr. Jaye Levy DISCHARGE ATTENDING: Dr. Jaye Levy CONSULTS: None. PROCEDURES: Chest x-ray negative for acute processes. PRIMARY DIAGNOSIS: Atypical chest pain. SECONDARY DIAGNOSES: 1. Diastolic heart failure. 2. Chronic kidney disease. 3. Chronic pain. 4. Anemia of chronic disease. 5. History of atrial fibrillation. DISCHARGE MEDICATIONS: 1. Levothyroxine sodium 88 mcg p.o. daily. 2. Warfarin sodium 4 mg p.o. as directed. 3. Coreg 6.25 mg p.o. b.i.d. 4. Ranitidine 150 mg p.o. b.i.d. 5. Hydrocortisone 30 mg p.o. b.i.d. 6. DuoNeb 3 mL nebulized q.6 hours p.r.n. 7. Artificial tear ointment one application each eye as directed p.r.n. 8. Midodrine HCL 10 mg p.o. daily. 9. Buspirone 10 mg p.o. b.i.d. 10. Gabapentin 100 mg p.o. t.i.d. p.r.n. 11. Tylenol #3 one tab p.o. q.6 hours p.r.n. DISCONTINUED MEDICATIONS: None. HISTORY OF PRESENT ILLNESS AND HOSPITAL COURSE: The patient arrived at the ED from the alf reporting chest pain. He was recently discharged from the hospital the day before after a long stay including time in the Critical Care Unit with intubation and dialysis. Discharged with improving kid silvia function and mentation. The patient's baseline is alert and oriented x1. [facility] hospital stay. Kidney function continued to improve as we trended his labs. T roponins were negative x3. EKG negative for acute changes. It was determined that his chest pain wa s musculoskeletal in nature and not ischemia. The patient was discharged with medications to control pain. DISPOSITION: Stable. DISCHARGE INSTRUCTIONS: 1. Location: [facility]. 2. Diet: Heart healthy. 3. Activity: As tolerated. 4. Followup: Follow up with physician in the alf in the next few days regarding pain manag ement options.
--- NOTE | 2018-02-26 10:25 | EKG ---
Test Reason : Blood Pressure : / mmHG Vent. Rate : 085 BPM Atrial Rate : 083 BPM P-R Int : 000 ms QRS Dur : 182 ms QT Int : 474 ms P-R-T Axes : 000 180 063 degrees QTc Int : 564 ms Electronic ventricular pacemaker Confirmed by MARICARMEN BRODY DO ([id number]), manuscript editor HAO RANDHAWA ([id number]) on 02/26/2018 10:25:21 AM Referred By: Confirmed By:MARICARMEN BRODY DO
== END 2018-02-20 14:23 ==
LOC: ERS 09:56 → 2NO 13:38
PROVIDERS: ADMIT Family Medicine; ATTEND Family Medicine
DX: R07.89 Other chest pain (principal); N18.6 End stage renal disease; I50.43 Acute on chronic combined systolic (congestive) and diastolic (congestive) heart failure; G89.29 Other chronic pain; D64.9 Anemia, unspecified; Z79.01 Long term (current) use of anticoagulants; Z79.899 Other long term (current) drug therapy; Z88.2 Allergy status to sulfonamides; Z88.1 Allergy status to other antibiotic agents
CPT/HCPCS: 71045; 80053 ×2; 82550; 82553; 83880; 84484 ×2; 85025 ×2; 85610; 93005; 96374; 99285; G0378 ×2; 36415; J1940

== ENCOUNTER 2018-03-04 07:38 | Day surgery (SDC) | payer MEDICARE, OTHER ==
--- NOTE | 2018-03-03 23:02 | HP ---
HISTORY OF PRESENT ILLNESS: Júnior Villa is an 87-year-old male patient Hardee's manner , status post right arm AV fistula on 01/07/2018 as well as placement of hemodialysis catheter. He l ater decided to stop dialysis. His hemodialysis catheter removed on 02/16/2018. He reports a day no w wanting to start back on dialysis. He decided to continue dialysis. He hopes to dialysis at [facility] on Wednesday, Wednesday, and Wednesday. He is followed by Dr. Duncan. Plan is to place hemodial ysis catheter tomorrow. His right arm fistula has a good thrill and bruit, inflow proximal radial ar sadaf, outflow cephalic vein with communication of basilic vein noted. We will plan placement of hemo dialysis catheter as an outpatient. He can arrange dialysis at [facility] at a later time. Nita morataya is on Coumadin and held his Coumadin for night tomorrow. We will check a PT/INR. I think, it i s okay to proceed on with placement of hemodialysis catheter tomorrow. MEDICATIONS: Carvedilol 3.125 mg twice a day; buspirone 10 mg twice a day; gabapentin 100 mg as need ed; levothyroxine 88 mcg daily; ranitidine 150 mg twice a day; Coumadin 4 mg a day on Wednesday, , Wednesday, and Wednesday; midodrine 10 mg a.m. on Wednesday, Wednesday, and Wednesday; hydrocortisone 10 mg twice a day. ALLERGIES: CIPRO, IODINE, MACRODANTIN. TOBACCO: None. ALCOHOL: None. PAST MEDICAL HISTORY: End-stage renal disease, nephrolithiasis, panhypopituitarism, cardiomyopathy w ith nonischemic passed cardiac catheterization as well as significant coronary artery disease, NATASHA mo re than 5 years ago on anticoagulation since that time for history of atrial fibrillation. PAST SURGICAL HISTORY: Tonsillectomy, left subclavian vein defibrillator, right arm primary fistula. On 01/07/2018, inflow proximal radial artery, outflow cephalic vein, primary communication of the b asilic vein preserved, retrograde antecubital vein preserved. REVIEW OF SYSTEMS: Noncontributory. PHYSICAL EXAMINATION: HEENT: Unremarkable. LUNGS: Clear to auscultation. CARDIAC: Regular rate and rhythm without murmur or gallop. Left chest defibrillator. ABDOMEN: Soft, obese. EXTREMITIES: Edematous pitting edema right arm fistula, well-healed antecubital proximal forearm wou nd. Good thrill and bruit, cephalic vein palpable left arm, but probably not reliable access still. ASSESSMENT AND PLAN: End-stage renal disease, dialysis access placed on 01/07/2018, patient hemodialy sis catheter removed per his request, as he did not want dialysis on 02/16/2018. He now desires dial ysis. We will plan placement of the dialysis catheter. On today's exam, he had a bandage over his r ight antecubital area with ecchymosis indicative of blood draw over his dialysis access, have written orders in his [facility] record to not draw blood from the right arm. I have adv ised the patient to refuse blood draws from the right arm.
[2018-03-04] MEDS ORDERED: CEFAZOLIN/Water 2 GM/20 ML SYRINGE ONE (10:02)
[2018-03-04] MEDS ORDERED: Fentanyl 100 MCG/2 ML VIAL ONE (10:39)
[2018-03-04] MEDS ORDERED: Heparin 10,000 UNITS/1 ML VIAL ONE (10:42)
[2018-03-04] MEDS ORDERED: Bupivacaine HCl 0.5%/Epinephrine 1:200,000/PF 30 ml Vial ONE (10:42)
[2018-03-04] MEDS ORDERED: Lidocaine 2% PF 5 ML VIAL ONE (10:42)
[2018-03-04] MEDS ORDERED: Sodium Chloride 0.9% 10 ML ONE (10:42)
[2018-03-04] MEDS ORDERED: Dexmedetomidine 200 MCG/2 ML VIAL ONE (10:48)
--- NOTE | 2018-03-04 12:09 | OP ---
DATE OF PROCEDURE: 03/04/2018 PREOPERATIVE DIAGNOSES: End-stage renal disease. The patient declined dialysis and his hemodialysis catheter was removed several weeks ago, but now has decided to proceed with dialysis and needs a new catheter. Left subclavian vein defibrillator on Coumadin. POSTOPERATIVE DIAGNOSES: End-stage renal disease. The patient declined dialysis and his hemodialysi s catheter was removed several weeks ago, but now has decided to proceed with dialysis and needs a ne w catheter. Left subclavian vein defibrillator on Coumadin. PROCEDURE: Right IJ cuffed tunnel hemodialysis catheter, ultrasound fluoroscopy used. SURGEON: Dr. Ankush Interiano ANESTHESIA: Intravenous sedation, local 0.5% Marcaine with epinephrine, 30 mL mixed with 2% Xylocain e, 10 mL. PROCEDURE: The patient was taken to the operating room where under intravenous sedation, neck and ch est prepped with ChloraPrep, draped in routine fashion. Local anesthetic infiltrated into the skin a nd subcutaneous tissue about the operative site. Using ultrasound guidance, the right internal jugul ar vein was cannulated with a trocar catheter. I initially used the curved end of the J wire, but it would not thread. A more cephalad access point in the internal jugular vein with the straight end, I was able to pass it to the superior vena cava under fluoroscopic visualization. A stab incision ma de and enlarged sharply. Trocar catheter removed. Stab incision made over the right chest and using the tunneling device, the precurved angiodynamics cuffed tunnel hemodialysis catheter tunneled betwe en the two incisions, placing the fabric up in the skin exit site. Catheter secured with 2 interrupt ed sutures of 3-0 nylon and exit site secured with interrupted subdermal 4-0 Monocryl due to the eugenia ent on Coumadin with elevated INR. Dermabond applied. Biopatch applied, sterile dressings applied. Smaller medium sized dilators placed over the J-wire into the internal jugular vein removed. Dilator and pull-away sheath placed over the J-wire into the superior vena cava under fluoroscopic visualiza tion and dilator removed. Catheter placed with pull-away sheath. Pull-away sheath removed. Fluoros copically, catheter noted to be good position, the platysma approximated with 4-0 Monocryl, skin with subdermal 4-0 Monocryl and DermaGlue applied. Each port aspirated of blood and flushed with saline solution and heparinized saline solution. The patient tolerated the procedure well.
--- NOTE | 2018-03-04 13:22 | RAD ---
SINGLE VIEW OF THE CHEST: Comparison: 02-28-18 History: Dialysis catheter placement. FINDINGS: Single view of the chest shows an enlarged but stable cardiomediastinal silhouette. There is a right IJ dialysis catheter with the tip in the superior vena cava. No pneumothorax is seen. The pacemaker i s unchanged in position. IMPRESSION: Dialysis catheter placement without evidence of complication. POS: JANNET
== END 2018-03-04 15:00 | disposition home or self-care (01) ==
LOC: SDC 07:38
PROVIDERS: ATTEND Specialist
PROC: 02HV33Z Insertion of Infusion Device into Superior Vena Cava, Percutaneous Approach (ICD-10-PCS; principal; 2018-03-04)
PROC: B5181ZA Fluoroscopy of Superior Vena Cava using Low Osmolar Contrast, Guidance (ICD-10-PCS; 2018-03-04)
DX: N18.6 End stage renal disease (principal); I25.10 Atherosclerotic heart disease of native coronary artery without angina pectoris; E23.0 Hypopituitarism; I42.9 Cardiomyopathy, unspecified; Z79.01 Long term (current) use of anticoagulants; Z79.52 Long term (current) use of systemic steroids; Z79.899 Other long term (current) drug therapy; Z88.1 Allergy status to other antibiotic agents; Z88.2 Allergy status to sulfonamides; Z88.8 Allergy status to other drugs, medicaments and biological substances; Z91.041 Radiographic dye allergy status; Z95.810 Presence of automatic (implantable) cardiac defibrillator; Z99.2 Dependence on renal dialysis
CPT/HCPCS: 36558; 71045; C1752; C1769; J0131; J0670; J1644; J2001; J3010

== ENCOUNTER 2018-03-04 17:36 | Inpatient (IN) | payer MEDICARE, OTHER ==
[2018-03-04 18:50] LABS: #Eosinphils 0.2 thou/uL (0.0-0.7); #Lymphocytes 1.7 thou/uL (1.20-3.40); #Monocytes 0.2 thou/uL (0.11-0.59); %Basophils 0.6 % (0.0-1.0); %Eosinophils 2.7 % (0.0-10.0); %Lymphocytes 24.1 % (21.0-51.0); %Monocytes 3.1 % (0.0-10.0); %Neutrophils 69.5 % (42.0-75.0); Mean Corpuscular HGB CONC 32.1 g/dL (32.0-36.0); Mean Corpuscular Hemoglobin 33.2 pg (27.0-31.0); Mean Platelet Volume 9.2 fL (7.4-10.4); Platelet Count 124 thou/uL (130-400); RBC Distribution Width 15.8 % (11.5-14.5); Red Blood Cell (RBC) Count 3.02 mill/uL (4.70-6.10); White Blood Cell (WBC) Count 7.2 thou/uL (4.8-10.8)
[2018-03-04 19:09] LABS: ALT (SGPT) 43 U/L (8-55); AST (SGOT) 13 U/L (5-34); Albumin 3.6 g/dL (3.4-4.8); Alkaline Phosphatase 201 U/L (40-150); Anion Gap 13 mmol/L (10-20); BUN (Urea Nitrogen) 51 mg/dL (8.4-25.7); Bilirubin, Total 0.6 mg/dL (0.2-1.2); Calc. Creatinine Clearance 0 mL/min (70-130); Calcium 9.2 mg/dL (7.8-10.44); Carbon Dioxide 23 mmol/L (23-31); Chloride 109 mmol/L (98-107); Estimated GFR-MDRD 25; Globulin 2.4 g/dL (2.4-3.5); Glucose 177 mg/dL (83-110); Potassium 3.6 mmol/L (3.5-5.1); Sodium 141 mmol/L (136-145)
--- NOTE | 2018-03-04 23:15 | CON ---
DATE OF CONSULTATION: 03/04/2018 NEPHROLOGY CONSULTATION REASON FOR CONSULTATION: Elevated creatinine and generalized edema. HISTORY OF PRESENTING ILLNESS: This is a very pleasant 87-year-old gentleman who presented to the em ergency room after worsening generalized edema. The patient received a tunneled dialysis catheter to day. The patient's creatinine remained stable at 2.3 today. PAST MEDICAL HISTORY: Significant for panhypopituitarism, end-stage renal disease, nephrolithiasis, history of nonischemic cardiomyopathy, atrial fibrillation, tonsillectomy, defibrillator, AV fistula, tunneled dialysis catheter. REVIEW OF SYSTEMS: Noncontributory. ALLERGIES: Reviewed. HOME MEDICATIONS: Reviewed. REVIEW OF SYSTEMS: A 15-point review of systems was performed and was negative except for positives noted above. GENERAL: Weakness- HEAD: Headache- NECK: No swelling or lumps. NOSE: No epistaxis or discharge. EYES: No diplopia or pain. RESPIRATORY: Dyspnea- CARDIOVASCULAR: Chest pain- GASTROINTESTINAL: Nausea- /[employer]: Hematuria- MUSCULOSKELETAL: No joint pain. NEUROPSYCHIATIC SYSTEMS: No suicidal ideation. No ideation. SKIN: Denies any rash or ulcer. CONSTITUTIONAL: No fever or chills. PHYSICAL EXAMINATION: GENERAL: Patient is awake, alert. VITAL SIGNS: Afebrile, pulse 75, breathing 16, blood pressure was 130/70. HEAD/NECK: Normocephalic. Atraumatic. EYES: EOMI. No deformity. EARS: Clear. No ulcers. NOSE: Intact. No lesions. MOUTH: Clear. No discharge. THROAT: Clear. No exudate. LUNGS: Clear. No crackles. CARDIAC: S1, S2. No rub. ABDOMEN: Benign. BS+. GENITALIA/RECTUM: Shabazz absent. BACK/EXTREMITIES: Edema 4+ Ulcer- NEUROLOGICAL: Alert and motor intact. SKIN: Rash- Bruise- LYMPHATICS: Edema- Ulcer- LABORATORY DATA: Show creatinine was 2.2. Today's creatinine is pending. ASSESSMENT AND RECOMMENDATIONS: 1. Acute kidney injury with chronic kidney disease and congestive heart failure. Continue Lasix. 2. Hypertension, stable. 3. Anemia, stable. If edema does not improve, we will consider dialysis.
[2018-03-05 00:45] VITALS: BMI 34.7
[2018-03-05] MEDS ORDERED: Ondansetron PF 4 MG/2 ML Vial IVP PRN (02:59)
[2018-03-05] MEDS ORDERED: Lacri-Lube Opth Oint 3.5 GM TUBE EA EYE PRN (02:59)
[2018-03-05] MEDS ORDERED: Acetaminophen 500 MG TAB PO PRN (02:59)
[2018-03-05] MEDS ORDERED: Ondansetron ODT 4 MG TAB PO PRN (02:59)
--- NOTE | 2018-03-05 04:29 | HP ---
DATE OF ADMISSION: 03/05/2018 PRIMARY CARE PHYSICIAN: Marcio Duncan M.D. CHIEF COMPLAINT: Lower extremity edema. HISTORY OF PRESENT ILLNESS: This is an 87-year-old male who presented to the emergency dep artment for evaluation concerning the initiation of dialysis. The patient underwent right internal j ugular tunneled hemodialysis catheter placement on 03/04/2018 in preparation for initiation of hemodi alysis. The history is somewhat confusing; however, patient originally had denied wanting hemodialys is and now has changed his mind seeking hemodialysis per Nephrology notes. The patient has noticed i ncreased lower extremity edema as noted on clinical exam. The patient underwent a tunneled right IJ hemodialysis catheter placement on 03/04/2018 as stated previously and was placed on a Lasix drip per Nephrology Service in an attempt for diuresis. The patient denies any specific fever, chills, cough , congestion or abdominal pain. PAST MEDICAL HISTORY: 1. End-stage renal disease. 2. Panhypopituitarism. 3. History of renal lithiasis. 4. Urinary tract infection. 5. History of pulmonary embolus. 6. Chronic atrial fibrillation. 7. History of syncope. 8. Hypothyroidism. 9. Hypertension. 10. Generalized weakness. 11. 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 12. Chronic hyponatremia. 13. Peripheral neuropathy. 14. Chronic anticoagulation with Coumadin. 15. History of prostate cancer. PAST SURGICAL HISTORY: 1. Status post transsphenoidal pituitary resection. 2. Status post AICD placement. 3. Status post colonoscopy. 4. Status post penile implant. 5. Status post radical prostatectomy. CURRENT MEDICATIONS: 1. BuSpar 10 mg p.o. t.i.d. 2. Carvedilol 6.25 mg p.o. b.i.d. 3. Keflex 500 mg p.o. t.i.d. 4. Gabapentin 100 mg p.o. t.i.d. 5. Cortef 30 mg p.o. b.i.d. 6. DuoNeb 3 mL nebulized q.6 hours p.r.n. 7. Synthroid 88 mcg p.o. daily. 8. Midodrine 10 mg p.o. daily. 9. Ranitidine 150 mg p.o. b.i.d. 10. Coumadin 2.5 mg p.o. daily. 11. Acetaminophen with codeine 300/30 mg 1 tab p.o. q.6 hours p.r.n. pain. ALLERGIES: CIPROFLOXACIN, IODINE, MACROBID, SULFA. FAMILY HISTORY: No inheritable diseases per patient report. SOCIAL HISTORY: The patient lives independently in the [place], [place] area, but does have a caregiver . Ambulatory with use of a rolling walker. History of falls. No current alcohol, tobacco or illici t drug use. Last tobacco use in 2017. The patient current resident of [facility] in [facility]. REVIEW OF SYSTEMS: The following complete review of systems was negative, unless otherwise mentioned in the HPI or below: Constitutional: Weight loss or gain, ability to conduct usual activities. Sk in: Rash, itching. Eyes: Double vision, pain. ENT/Mouth: Nose bleeding, neck stiffness, pain, ten derness. Cardiovascular: Palpitations, dyspnea on exertion, orthopnea. Respiratory: Shortness of breath, wheezing, cough, hemoptysis, fever or night sweats. Gastrointestinal: Poor appetite, abdomi nal pain, heartburn, nausea, vomiting, constipation, or diarrhea. Genitourinary: Urgency, frequency , dysuria, nocturia. Musculoskeletal: Pain, swelling. Neurologic/Psychiatric: Anxiety, depression . Allergy/Immunologic: Skin rash, bleeding tendency. Otherwise negative except as stated per HPI. PHYSICAL EXAMINATION: VITAL SIGNS: On admission, blood pressure 142/70, pulse 90, respiratory rate 18, temperature 97.8 de grees Fahrenheit, O2 saturation 100% on 3 liters per minute by nasal cannula. GENERAL APPEARANCE: This is an 87-year-old male, alert and responsive, in no acute distres s. HEENT: Pupils are equal, round, and reactive to light and accommodation. Extraocular muscles are in tact. No scleral icterus, no conjunctival injection. Nares patent. OP is clear. Teeth in fair rep air. NECK: Supple, no cervical adenopathy, no thyromegaly, no carotid bruits, no JVD noted. CHEST: Few scattered coarse bibasilar breath sounds. CARDIOVASCULAR: S1, S2. ABDOMEN: Rounded, soft, nontender, nondistended. Bowel sounds are positive in all four quadrants. There is no hepatosplenomegaly, no abdominal bruits, no rebound or guarding appreciated. EXTREMITIES: Warm and dry with fair turgor. Pitting edema to the knees bilaterally. Pulses are pal pable distally at the dorsalis pedis, posterior tibial, and popliteal arteries bilaterally. Capillar y refill less than 2 seconds. NEUROLOGIC: Cranial nerves II-XII are grossly intact. No focal or lateralizing signs appreciated. PERTINENT LABORATORY AND X-RAY FINDINGS: Sodium 141, potassium 3.6, chloride 109, CO2 of 23, BUN 51, creatinine 2.48, estimated GFR of 25, glucose 177, calcium 9.2. LFTs within normal limits. CBC ijeoma wed a white blood cell count of 7.2, hemoglobin 10, hematocrit 31, MCV 103, platelet count 124 with n ormal differential. Portable chest x-ray dated 03/04/[address] showed dialysis catheter in place. No acu te infiltrate identified. EKG dated 03/04/2018 by my interpretation shows ventricular paced rhythm i n the 90s. ASSESSMENT AND PLAN: 1. End-stage renal disease. Current plans are for initiation of hemodialysis after a trial of Lasix infusion. Nephrology consult completed. Status post right internal jugular tunneled hemodialysis c atheter placement in 03/04/2018. 2. Volume overload secondary to end-stage renal disease. Continue Lasix infusion as outlined previo usly. Plan for hemodialysis in 03/05/2018. 3. Hypothyroidism. Resume levothyroxine 88 mcg daily. 4. Chronic anticoagulation. Continue Coumadin and monitor daily INR. 5. Panhypopituitarism. Continue home regimen to include hydrocortisone 30 mg b.i.d., midodrine 10 m g p.o. daily. 6. Prophylaxis. Sequential compression devices while in bed. Hold sequential compression devices s econdary to lower extremity edema. Heparin 5000 units subcutaneously t.i.d. PT evaluation for funct ional assessment. 7. Code status is FULL. Surrogate medical decision maker is Alejandra Torres.
[2018-03-05] MEDS: Levothyroxine Sodium 88 MCG TAB PO SCH (06:33)
[2018-03-05 06:47] LABS: Anion Gap 15 mmol/L (10-20); BUN (Urea Nitrogen) 50 mg/dL (8.4-25.7); Calc. Creatinine Clearance 33 mL/min (70-130); Carbon Dioxide 18 mmol/L (23-31); Chloride 112 mmol/L (98-107); Estimated GFR-MDRD 28; Glucose 115 mg/dL (83-110); Potassium 4.1 mmol/L (3.5-5.1); Sodium 141 mmol/L (136-145)
[2018-03-05 07:02] LABS: Anisocytosis SLIGHT = 6-15 cells (100X) (0-5/hpf); Hemoglobin 9.7 g/dL (14.0-18.0); MDiff Complete? YES; Mean Corpuscular HGB CONC 30.9 g/dL (32.0-36.0); Mean Corpuscular Hemoglobin 32.2 pg (27.0-31.0); Platelet Count 124 thou/uL (130-400); White Blood Cell (WBC) Count 7.5 thou/uL (4.8-10.8)
[2018-03-05] MEDS ORDERED: Heparin 5,000 UNITS/ML VIAL SC SCH (09:00)
[2018-03-05] MEDS: Carvedilol 6.25 MG TAB PO SCH ×4 (09:05→16:36)
[2018-03-05] MEDS: Hydrocortisone 10 mg Tablet PO SCH ×2 (09:23→09:39)
[2018-03-05] MEDS: Famotidine 20 MG TAB PO SCH (09:40)
[2018-03-05] MEDS: Cephalexin 250 MG CAP PO SCH ×3 (09:40→21:23)
[2018-03-05] MEDS: Midodrine HCl 5 MG TAB PO SCH (09:40)
[2018-03-05] MEDS: busPIRone HCl 10 MG TAB PO SCH ×2 (09:40→21:23)
--- NOTE | 2018-03-05 11:55 | PRG ---
DATE OF SERVICE: 03/05/2018 SUBJECTIVE: An 87-year-old gentleman being seen for acute kidney injury. The patient denies any cedric sea, vomiting or chest pain. PHYSICAL EXAMINATION: GENERAL: Patient is on Lasix drip. VITAL SIGNS: His blood pressure has dropped from 130s-97/59. HEAD/NECK: Normocephalic. Atraumatic. EYES: EOMI. No deformity. EARS: Clear. No ulcers. NOSE: Intact. No lesions. MOUTH: Clear. No discharge. THROAT: Clear. No exudate. LUNGS: Clear. No crackles. CARDIAC: S1, S2. No rub. ABDOMEN: Benign. BS+. GENITALIA/RECTUM: Shabazz absent. BACK/EXTREMITIES: Edema 0+ Ulcer- NEUROLOGICAL: Alert and motor intact. SKIN: Rash- Bruise- LYMPHATICS: Edema 4+, Ulcer- LABORATORY DATA: Show hemoglobin 9.7, creatinine 2.2. ASSESSMENT AND RECOMMENDATIONS: 1. Stage 4 chronic kidney disease. Continue diuresis with Lasix drip and titrate the Lasix drip upw ards to 8 mg. 2. Hypertension stable. 3. Anemia stable. 4. Medications based on glomerular filtration rate are appropriate.
[2018-03-05] MEDS: Acetaminophen/Codeine 30-300mg Tablet PO PRN (13:53)
--- NOTE | 2018-03-05 14:31 | CON ---
DATE OF CONSULTATION: 03/05/2018 INPATIENT CONSULTATION consultation regarding artificial sphincter, urinary retention. PRIMARY UROLOGIST: Dr. Terry, previously followed by Dr. Akhtar. HISTORY OF PRESENT ILLNESS: Mr. Villa is an 87-year-old male with very complex medical and urologic history. The patient was previously followed by Dr. Akhtar. 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 He underwent subsequent radical salvage prostatectomy that was performed in [place] some 25 years ago. He has had severe urinary incontinence and an artificial urinary sphincter. There is a history of the sphincter being infected and replaced. Per review of records, per Dr. Akhtar, initial artificial sphincter was placed by Dr. Jean @ [facility]. The patient was recently seen by Dr. Terry on 10/2017. It appears the patient had been referred to Dr. Inder Moses regarding his artificial urinary sphincter. The patient is a very poor historian. Per nursing staff, patient is too weak to deflate his urinary sphincter. Upon further history, it appears that he has not deflated his sphincter for the last few weeks. Has had incontinence with urinary dribbling. Bladder scan was obtained by nursing staff demonstrating more than 300 mL, therefore urologic consultation was obtained. PAST MEDICAL HISTORY: End-stage renal disease which he continues to make significant amount of urine, hypopituitarism, history of renal lithiasis, history of UTI, history of pulmonary embolus, chronic atrial fibrillation, syncope, hypothyroidism, hypertension, chronic systolic/diastolic congestive heart failure with EF of 40%-45%, chronic hyponatremia, peripheral neuropathy, chronic anticoagulation with Coumadin, history of prostate cancer, status post RT salvage radical prostatectomy, severe stress incontinence status post artificial urinary sphincter at times replacement due to infected cuff. PAST SURGICAL HISTORY: Status post transsphenoidal pituitary resection, AICD, colonoscopy, artificial urinary sphincter replacement, status post radical prostatectomy sp RT CURRENT MEDICATIONS: Include buspirone, carvedilol, Keflex, Neurontin, Cortef, DuoNeb, Synthroid, midodrine, ranitidine, Coumadin 2.5 mg 1 p.o. daily, acetaminophen. ALLERGIES: He is allergic to CIPROFLOXACIN, IODINE, MACROBID and SULFA. FAMILY HISTORY: Negative. SOCIAL HISTORY: He lives in a group home/rehab manor. REVIEW OF SYSTEMS: Ten-point review of systems as above, otherwise noncontributory. PHYSICAL EXAMINATION: VITAL SIGNS: Stable, 97, 89, 20, 93% on 3 liters, 136/85. He is in diapers, incontinent. GENERAL: Patient is a morbidly obese male, conversational dyspnea is noted. HEENT: Grossly unremarkable. HEART: reg rate. LUNGS: Decreased inspiratory effort. ABDOMEN: Morbidly obese, protuberant. There is a midline infraumbilical incision consistent with open prostatectomy. GENITOURINARY: Uncircumcised phallus. There is no evidence of meatal stenosis. Testes are descended with no evidence of intratesticular mass. His artificial sphincter pump reservoir is palpated in the left hemiscrotum. EXTREMITIES: Gross edema bilaterally consistent with fluid overload. Venous stasis changes are noted. BEDSIDE PROCEDURE: I deactivated his artificial sphincter decompressed. Initially, I was able to pass a 15 Latvian catheter and obtained approximately 350 mL of post-void residual. As the patient is in retention, despite end- stage renal disease, decision was made to deactivate his cuff, so that indwelling Shabazz catheter can stay in situ while patient is currently being diuresed on Lasix drip. IMPRESSION AND PLAN: Mr. Villa is an 87-year-old male with multiple comorbidities as above. Congestive heart failure exacerbation, end-stage renal disease, now on Lasix drip . As patient requires either indwelling Shabazz catheter versus clean intermittent catheterization due to urinary retention, there will be less trauma to his artificial sphincter if it is deactivated with a small caliber urethral Shabazz catheter. 12 Latvian 10 mL Shabazz catheter passed after deactivation of sphincter. This will be less traumatic than relying on nursing staff to deflate his sphincter then performing CIC, as there is a risk of damage to his sphincter, or resulting in false passage. When patient is off his Lasix drip, voiding trial may be initiated. I did conference with Dr. Terry regarding the sphincter care. Agree with current plan of management. UA and C&S to be sent. PUSHPAD
[2018-03-05 15:33] LABS: Hemoglobin 9.5 g/dL (14.0-18.0); Platelet Count 120 thou/uL (130-400)
[2018-03-05 15:40] LABS: INR-International Normal Ratio 2.4
[2018-03-05] MEDS: Warfarin Sodium 2.5 MG TAB PO SCH (16:36)
[2018-03-05 16:56] LABS: Bilirubin Negative (Negative); Blood, Urine Moderate (Negative); Clarity CLOUDY (Clear); Glucose, Urine (Dipstick) Negative (Negative); Leukocyte Small (Negative); Nitrite Negative (Negative); Protein, Urine (Dipstick) Negative (Neg-Trace); Specific Gravity, Urine 1.011 (1.002-1.036); Urobilinogen 0.2 mg/dL (0.2-1.0)
[2018-03-05 16:57] LABS: Bacteria/HPF None Seen HPF (None Seen); RBC/HPF 0-3 HPF (0-3)
[2018-03-05 16:59] LABS: Hyaline Casts/LPF 0-3 HYALINE CAST LPF (0-3 Hyaline); Pathc Cast-AUWi Flag 7.26 (0-2.49)
[2018-03-05 17:00] LABS: Manual Microscopic Reviewed? No Path Casts Seen; Renal Epithelial None Seen HPF (0-3); Transitional Epithelial NONE SEEN HPF (0-3)
[2018-03-05] MEDS: Gabapentin 100 MG CAP PO PRN (22:44)
[2018-03-05] MEDS: Furosemide 100 MG in Sodium Chloride 0.9% 90 ML IVPB SCH (23:46)
[2018-03-06 05:48] LABS: INR-International Normal Ratio 2.2; Prothrombin Time 24.6 SEC (12.0-14.7)
[2018-03-06] MEDS: Levothyroxine Sodium 88 MCG TAB PO SCH (05:52)
[2018-03-06] MEDS: Famotidine 20 MG TAB PO SCH (08:48)
[2018-03-06] MEDS: Hydrocortisone 10 mg Tablet PO SCH ×2 (08:48→20:47)
[2018-03-06] MEDS: Midodrine HCl 5 MG TAB PO SCH (08:48)
[2018-03-06] MEDS: Cephalexin 250 MG CAP PO SCH ×3 (08:48→20:46)
[2018-03-06] MEDS: Acetaminophen/Codeine 30-300mg Tablet PO PRN (08:49)
[2018-03-06] MEDS: Carvedilol 6.25 MG TAB PO SCH ×2 (08:49→17:02)
[2018-03-06] MEDS: busPIRone HCl 10 MG TAB PO SCH ×2 (08:49→20:47)
[2018-03-06 11:07] LABS: Anion Gap 14 mmol/L (10-20); BUN (Urea Nitrogen) 44 mg/dL (8.4-25.7); Calc. Creatinine Clearance 32 mL/min (70-130); Calcium 8.7 mg/dL (7.8-10.44); Carbon Dioxide 24 mmol/L (23-31); Chloride 108 mmol/L (98-107); Estimated GFR-MDRD 27; Glucose 176 mg/dL (83-110); Potassium 3.7 mmol/L (3.5-5.1); Sodium 142 mmol/L (136-145)
--- NOTE | 2018-03-06 11:20 | PRG ---
DATE OF SERVICE: 03/06/2018 SUBJECTIVE: The patient is sleeping, arousable. OBJECTIVE: VITAL SIGNS: Stable. Urine output 1250, dilute clear. ABDOMEN: Soft, nontender, nondistended, no rigidity, no rebound. GENITOURINARY: Shabazz catheter adequately secured demonstrating clear dilute urine. PERTINENT LABORATORY DATA: Hemoglobin today is 9.5. INR today is 2.2, creatinine 2.2. Urine culture negative. IMPRESSION AND PLAN: 1. Mr. Villa is an 87-year-old male admitted with chronic obstructive pulmonary disease, congestive heart failure exacerbation, currently on Lasix drip. 2. History of prostate cancer, status post radiation therapy, salvage radical prostatectomy. 3. Severe stress urinary incontinence, s/p artificial urinary sphincter. 4. Urinary retention, deconditioned status, in which he is unable to deflate his own artificial urinary sphincter. Shabazz catheter was placed yesterday after deactivation of AUS for strict I's and O's as he is being diuresed by Cardiology. Continue indwelling Shabazz catheter for now, when patient optimized , off Lasix drip. Voiding trial will be initiated by OLAMIDE. Dr. Terry to resume his care tomorrow morning. KEEGAN
[2018-03-06 11:32] LABS: Hemoglobin 9.5 g/dL (14.0-18.0)
--- NOTE | 2018-03-06 12:54 | PRG ---
DATE OF SERVICE: 03/06/2018 SUBJECTIVE: An 87-year-old gentleman being seen for acute kidney injury. The patient denies any cedric sea, vomiting, or chest pain. PHYSICAL EXAMINATION: GENERAL: Patient is awake, and alert. VITAL SIGNS: Afebrile, pulse 87, breathing at 16, blood pressure 127/56. GENERAL APPEARANCE AND MENTAL STATUS: Fair. HEAD/NECK: Normocephalic. Atraumatic. EYES: EOMI. No deformity. EARS: Clear. No ulcers. NOSE: Intact. No lesions. MOUTH: Clear. No discharge. THROAT: Clear. No exudate. LUNGS: Clear. No crackles. CARDIAC: S1, S2. No rub. ABDOMEN: Benign. BS+. GENITALIA/RECTUM: Shabazz absent. BACK/EXTREMITIES: Edema 0+ Ulcer-. NEUROLOGICAL: Alert and motor intact. SKIN: Rash- Bruise- LYMPHATICS: Edema- Ulcer-. LABORATORY DATA: Show hemoglobin 9.5, creatinine 2.2. ASSESSMENT AND RECOMMENDATIONS: 1. Stage IV chronic kidney disease, stable. 2. Hypertension, stable. 3. Anemia, stable. 4. Congestive heart failure. We will increase the Lasix up to 6 mL per hour. No indication for evette lysis at this time.
[2018-03-06] MEDS ORDERED: Acetaminophen 325 MG TAB PO PRN (15:07)
--- NOTE | 2018-03-06 15:08 | PDOC.PN ---
- Subjective Encounter Start Date: 03/06/18 Encounter Start Time: 10:30 Subjective: pt up in bed appears drowsy but arousable - Objective Resuscitation Status: Resuscitation Status FULL:Full Resuscitation Vital Signs & Weight: Vital Signs (12 hours) Temp Pulse Resp BP BP BP Pulse Ox 03/06/18 12:37 97.9 F 80 20 127/57 L 94 L 03/06/18 08:49 127/56 L 03/06/18 07:37 97 03/06/18 07:29 97.2 F L 87 20 127/56 L 97 03/06/18 04:00 97.8 F 80 20 137/61 98 Weight Weight 222 lb 8 oz I&O: 03/05/18 03/06/18 03/07/18 06:59 06:59 06:59 Intake Total 240 1233 Output Total 1250 Balance 240 -17 Result Diagrams: 03/06/18 11:14 03/06/18 10:38 Phys Exam - Physical Examination Neck: no nodes, no JVD, supple, full ROM Respiratory: no wheezing, no rales, no rhonchi, wheezing present, clear to auscultation bilateral Cardiovascular: RRR, no significant murmur, no rub, gallop, irregular Gastrointestinal: soft, non-tender, no distention, positive bowel sounds Musculoskeletal: no edema, pulses present, edema present Dx/Plan (1) Acute renal failure superimposed on stage 4 chronic kidney disease Code(s): N17.9 - ACUTE KIDNEY FAILURE, UNSPECIFIED; N18.4 - CHRONIC KIDNEY DISEASE, STAGE 4 (SEVERE) Status: Acute Comment: nephrology workup/ management in progress. 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 * . Review of Systems - Review of Systems Cardiovascular: negative: chest pain, palpitations, orthopnea, paroxysmal nocturnal dyspnea, edema, light headedness, other Gastrointestinal: negative: Nausea, Vomiting, Abdominal Pain, Diarrhea, Constipation, Melena, Hematochezia, Other Genitourinary: negative: Dysuria, Frequency, Incontinence, Hematuria, Retention , Other - Medications/Allergies Allergies/Adverse Reactions: Allergies Allergy/AdvReac Type Severity Reaction Status Date / Time ciprofloxacin HCl Allergy Verified 02/19/18 14:41 [From Cipro] iodine Allergy Verified 02/19/18 14:41 nitrofurantoin Allergy Verified 02/19/18 14:41 macrocrystalline [From Macrodantin] Sulfa (Sulfonamide Allergy Verified 02/19/18 14:41 Antibiotics) Medications: Current Medications Acetaminophen (Tylenol) 650 mg PO Q6H PRN PRN Reason: Mild Pain (1-3) Albuterol/Ipratropium (Duoneb) 3 ml NEB Q6H PRN PRN Reason: SOB &/or Wheezing Buspirone HCl (Buspar) 10 mg PO BID [facility] Last Admin: 03/06/18 08:49 Dose: 10 mg Carvedilol (Coreg) 6.25 mg PO BID-[facility] Last Admin: 03/06/18 08:49 Dose: 6.25 mg Cephalexin (Keflex) 500 mg PO TID [facility] Stop: 03/11/18 21:01 Last Admin: 03/06/18 15:07 Dose: 500 mg Famotidine (Pepcid) 20 mg PO DAILY [facility] Last Admin: 03/06/18 08:48 Dose: 20 mg Gabapentin (Neurontin) 100 mg PO Q8H PRN PRN Reason: Pain Last Admin: 03/05/18 22:44 Dose: 100 mg Hydrocortisone (Cortef) 30 mg PO BID [facility] Last Admin: 03/06/18 08:48 Dose: 30 mg Furosemide 100 mg/ Sodium (Chloride) 100 mls @ 3 mls/hr IVPB INF [facility] Last Admin: 03/05/18 23:46 Dose: 100 mls Levothyroxine Sodium (Synthroid) 88 mcg PO 0600 [facility] Last Admin: 03/06/18 05:52 Dose: 88 mcg Midodrine (Proamatine) 10 mg PO DAILY [facility] Last Admin: 03/06/18 08:48 Dose: 10 mg Mineral Oil/White Petrolatum (Lacri-Lube Ointment) 0 gm EA EYE BID PRN PRN Reason: Dry Eyes Ondansetron HCl (Zofran Odt) 4 mg PO Q6H PRN PRN Reason: Nausea/Vomiting Ondansetron HCl (Zofran) 4 mg IVP Q6H PRN PRN Reason: Nausea/Vomiting Warfarin Sodium (Coumadin) 2.5 mg PO 1700 [facility] Last Admin: 03/05/18 16:36 Dose: 2.5 mg
[2018-03-06] MEDS: Warfarin Sodium 2.5 MG TAB PO SCH (17:02)
[2018-03-06 18:44] LABS: Anion Gap 12 mmol/L (10-20); BUN (Urea Nitrogen) 46 mg/dL (8.4-25.7); Calc. Creatinine Clearance 34 mL/min (70-130); Calcium 8.8 mg/dL (7.8-10.44); Carbon Dioxide 27 mmol/L (23-31); Chloride 106 mmol/L (98-107); Estimated GFR-MDRD 29; Glucose 129 mg/dL (83-110); Potassium 3.6 mmol/L (3.5-5.1); Sodium 141 mmol/L (136-145)
[2018-03-06] MEDS: Furosemide 100 MG in Sodium Chloride 0.9% 90 ML IVPB SCH (22:48)
[2018-03-07] MEDS: Levothyroxine Sodium 88 MCG TAB PO SCH (05:26)
[2018-03-07 05:48] LABS: Prothrombin Time 22.3 SEC (12.0-14.7)
[2018-03-07 07:30] LABS: Hemoglobin 9.5 g/dL (14.0-18.0); Platelet Count 114 thou/uL (130-400)
[2018-03-07 07:54] LABS: Chloride 105 mmol/L (98-107); Potassium 3.7 mmol/L (3.5-5.1); Sodium 139 mmol/L (136-145)
[2018-03-07 07:55] LABS: Calcium 8.7 mg/dL (7.8-10.44); Glucose 158 mg/dL (83-110)
[2018-03-07 07:57] LABS: Anion Gap 9 mmol/L (10-20); Carbon Dioxide 29 mmol/L (23-31)
[2018-03-07 07:59] LABS: Calc. Creatinine Clearance 28 mL/min (70-130); Estimated GFR-MDRD 24
[2018-03-07 08:00] LABS: BUN (Urea Nitrogen) 49 mg/dL (8.4-25.7)
[2018-03-07] MEDS: Hydrocortisone 10 mg Tablet PO SCH ×2 (10:18→21:57)
[2018-03-07] MEDS: Carvedilol 6.25 MG TAB PO SCH ×2 (10:19→16:31)
[2018-03-07] MEDS: Cephalexin 250 MG CAP PO SCH ×3 (10:20→21:56)
[2018-03-07] MEDS: busPIRone HCl 10 MG TAB PO SCH ×2 (10:20→21:56)
[2018-03-07] MEDS: Famotidine 20 MG TAB PO SCH (10:21)
[2018-03-07] MEDS: Midodrine HCl 5 MG TAB PO SCH (10:21)
--- NOTE | 2018-03-07 11:58 | PDOC.PN ---
- Subjective Encounter Start Date: 03/07/18 Encounter Start Time: 11:15 Subjective: f/u for edema in context of CHARI/CKD on IV Lasix. States feeling weak and -: some SOB. - Objective Resuscitation Status: Resuscitation Status FULL:Full Resuscitation MAR Reviewed: Yes Vital Signs & Weight: Vital Signs (12 hours) Temp Pulse Resp BP BP Pulse Ox 03/07/18 10:19 143/64 H 03/07/18 08:30 97.6 F 88 20 143/64 H 95 03/07/18 04:00 97.9 F 85 16 130/67 93 L 03/07/18 00:00 97.8 F 82 16 115/83 96 Weight Weight 214 lb 6 oz I&O: 03/06/18 03/07/18 03/08/18 06:59 06:59 06:59 Intake Total 1233 906 Output Total 1250 2375 Balance 73 -1966 Result Diagrams: 03/07/18 05:11 03/07/18 05:11 Additional Labs: Microbiology 03/05/18 16:43 Urine navarro catheter Urine Culture - Final NO GROWTH AT 48 HOURS Laboratory Tests 03/04/18 03/05/18 03/05/18 18:38 05:56 05:56 Plt Count 124 L 124 L Creatinine 2.26 H Magnesium 03/05/18 03/05/18 03/06/18 10:18 15:26 10:38 Plt Count 120 L Creatinine 2.26 H 2.28 H Magnesium 03/06/18 03/06/18 11:14 17:56 Plt Count Creatinine 2.17 H Magnesium 2.2 EKG Reviewed by me: Yes (Tele - V-pacing, underlying A-fib) Phys Exam - Physical Examination Constitutional: NAD alert, responsive HEENT: PERRLA, sclera anicteric, oral pharynx no lesions Neck: no nodes, no JVD, supple, full ROM Respiratory: no wheezing, no rales, no rhonchi, clear to auscultation bilateral S1, S2 Cardiovascular: RRR, no significant murmur, no rub, gallop obese Gastrointestinal: soft, non-tender, no distention, positive bowel sounds Musculoskeletal: pulses present, edema present Neurological: normal sensation, moves all 4 limbs Skin: normal turgor, cap refill <2 seconds Dx/Plan (1) Acute renal failure superimposed on stage 4 chronic kidney disease Code(s): N17.9 - ACUTE KIDNEY FAILURE, UNSPECIFIED; N18.4 - CHRONIC KIDNEY DISEASE, STAGE 4 (SEVERE) Status: Acute Comment: IV Lasix, serial monitoring , avoid nephrotoxic meds and limit contrast exposure, serial creatinine (2) General weakness Code(s): R53.1 - WEAKNESS Status: Chronic Comment: SNF, PT/OT for mobilization (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
--- NOTE | 2018-03-07 12:30 | PRG ---
DATE OF SERVICE: 03/07/2018 SUBJECTIVE: Patient was seen and examined at bedside and overnight events noted. Patient denies shortness of breath or cramps or chest pain or palpitation. No Nausea or vomiting or diarrhea or fever or chills. OBJECTIVE: GENERAL: This is an elderly male in no apparent distress. VITAL SIGNS: Temperature 97, pulse 80, respiratory rate 18, blood pressure 143/ 64. Musculoskeletal : No tenderness, No edema HEENT: Atraumatic normocephalic Neck: Supple Cardiovascular: S1S2 heard, Rate and rhythm regular Respiratory: Clear to auscultation Gastrointestinal: Abdomen is soft Dermatologic : No skin rash Neurologic: Alert and awake and oriented X3 No focal neurologic deficits. Moving all the extremities. Psychiatric: Mood and affect normal LABORATORY DATA: Potassium is 3.7, BUN 49, creatinine is 2.5. ASSESSMENT AND PLAN: 1. Acute kidney injury on chronic kidney stage 4, stable. 2. Fluid overload with edema. We will stop Lasix drip and we will start on oral Lasix and monitor, the patient is saturating well on room air. 3. Hypertension, stable. 4. Anemia. 5. Cardiorenal syndrome. Plan is to monitor renal function. We are changing to oral Lasix. I will follow. MTDD
--- NOTE | 2018-03-07 14:16 | PQF ---
CLINICAL DOCUMENTATION IMPROVEMENT CLARIFICATION FORM: ICD-10 Updated PLEASE DO AN ADDENDUM TO THE PROGRESS NOTE WITH ANY DOCUMENTATION UPDATES OR ADDITIONS AND CARRY THROUGH TO DC SUMMARY. THANK YOU. DATE: 03/07/18; 03/08/18 ATTN: Dr. Alston Please exercise your independent, professional judgment in responding to the clarification form. Clinical indicators are provided on the bottom of this form for your review Please check appropriate box(s): Conflicting documentation was noted in the Medical Record, please clarify if patient is being treated/monitored for: [ ] Congestive heart failure exacerbation and fluid overload with CHARI on CKD. [ ] Congestive heart failure exacerbation. [ ] Fluid overload [ x ] Other diagnosis _CKD and volume overload [ ] Unable to determine In addition, please specify: Present on Admission (POA): [ x ] Yes [ ] No [ ] Unable to determine For continuity of documentation, please document condition throughout progress notes and discharge summary. Thank You. CLINICAL INDICATORS - SIGNS / SYMPTOMS/ LABS UROLOGY CONSULT 03/05: CONGESTIVE HEART FAILURE EXACERBATION, ESRD, NOW ON LASIX DRIP. RENAL PN 03/06: CONGESTIVE HEART FAILURE. WE WILL INCREASE THE LASIX UP TO 6 ML PER HOUR. RENAL PN 03/07: FLUID OVERLOAD WITH EDEMA. UROLOGY PN 03/07: CONGESTIVE HEART FAILURE EXACERBATION AND FLUID OVERLOAD WITH ACUTE KIDNEY INJURY ON CHRONIC KIDNEY DISEASE CURRENTLY ON ORAL LASIX TRANSITIONED OFF THE LASIX DRIP. 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 ESRD. Extremeties: PITTING EDEMA TO KNEES BILATERALLY. VOLUME OVERLOAD SECONDARY TO ESRD. TREATMENT: ORDER 03/04: LASIX 100 MG NS 90 ML IV 3/MG HR. DC'D 03/07 ORDER 03/07: LASIX 40 MG PO O900, 1400 Thank you, Madelyn (This form is maintained as a part of the permanent medical record) 2014 [employer], [place]. All Rights Reserved Madelyn Sanders RN, BSN [email or web address] Office: [phone] [facility]
[2018-03-07] MEDS: Furosemide 40 MG TAB PO SCH (16:32)
[2018-03-07] MEDS: Warfarin Sodium 2.5 MG TAB PO SCH (16:32)
--- NOTE | 2018-03-07 19:58 | PRG ---
DATE OF SERVICE: 03/07/2018 SUBJECTIVE: The patient states he is feeling fine. He has no complaints. He states that he wants t o get out of the hospital. Denies any significant pelvic pain, although he states his genital area i s "sore." He has not had any fevers or severe pain. On discussion with the patient, he has not even fully aware that he has an artificial urinary sphincter with prompting he does recall that he has a device down there, but expresses poor understanding of how to use it. When I asked him how he goes t o the bathroom, he does not recall that he is supposed to squeeze on any type of pump device to actua lly use the artificial sphincter. OBJECTIVE: VITAL SIGNS: Temperature 97.6, pulse 88, respirations 20, blood pressure 129/62, saturation 95% on r oom air. GENERAL: No apparent distress, communicative and alert. CARDIOVASCULAR: Regular rate and rhythm. CHEST: Bibasilar crackles. ABDOMEN: Protuberant, well-healed midline incision. Soft, nontender, nondistended. Positive bowel sounds. GENITOURINARY: Shabazz catheter [address] draining clear yellow urine. AUS was cycled again, fully decompressed and then deactivated to ensure that it was in the completely open position. Cath eter secured with #2 statlocks. EXTREMITIES: 2-3+ edema present bilaterally. LABORATORY DATA: A full set of labs in the [facility] system, which I have reviewed. Of note, the pat ient's creatinine is 2.52, hemoglobin is 9.5. ASSESSMENT AND PLAN: An 87-year-old white male with congestive heart failure exacerbation and fluid overload with acute kidney injury on chronic kidney disease, currently on oral Lasix transitioned off the Lasix drip. It appears that the patient has a poor understanding of how his AUS actually works, probably due to dementia and advanced age. He does not appear to have adequate dexterity to work hi s artificial urinary sphincter. One option would be to leave him completely incontinent and leave hi s AUS open. Alternatively, we could activate his AUS and consider putting an SP tube in for long-ter m urinary management as I am very concerned about long-term indwelling catheter with his AUS as he is at high risk for urethral erosion. If he does get an infection of his artificial sphincter, he is e xtremely high risk for mortality given that he would not be a good candidate for any kind of surgical procedure in his current state. As such, I have talked to the patient about having an SP tube nirav sanders and he states he would be fine with that. He ideally does not want to have a catheter forever and asked if he could potentially be removed in the future and I stated that it could so long as he understands and has adequate demonstration of how to work his artificial sphincter. Alternatively, nick merchant could just leave him fully incontinent take his SP tube out a later date. For now, given that it i s unknown how long he will be in the hospital for and that he has poor understanding of how his AUS w orks with questionable urinary retention, I would recommend potential CT guided SP tube placement. Dennis castellon his prior history of radiation and salvage prostatectomy, if the CT demonstrates that there is t oo much bowel overlying his bladder, then we will have to leave him with indwelling Shabazz and try to get it out as soon as possible and just plan for permanent deactivation of his artificial sphincter.
[2018-03-07] MEDS: Gabapentin 100 MG CAP PO PRN (23:21)
[2018-03-08 05:29] LABS: INR-International Normal Ratio 1.9; Prothrombin Time 21.6 SEC (12.0-14.7)
[2018-03-08] MEDS: Levothyroxine Sodium 88 MCG TAB PO SCH (05:55)
[2018-03-08] MEDS: Carvedilol 6.25 MG TAB PO SCH ×2 (09:00→16:35)
[2018-03-08] MEDS: Midodrine HCl 5 MG TAB PO SCH (09:00)
[2018-03-08] MEDS: Cephalexin 250 MG CAP PO SCH ×3 (09:01→21:08)
[2018-03-08] MEDS: busPIRone HCl 10 MG TAB PO SCH ×2 (09:01→21:08)
[2018-03-08] MEDS: Famotidine 20 MG TAB PO SCH (09:01)
[2018-03-08] MEDS: Furosemide 40 MG TAB PO SCH ×2 (09:01→14:57)
[2018-03-08] MEDS: Hydrocortisone 10 mg Tablet PO SCH ×2 (09:01→21:08)
[2018-03-08 09:13] LABS: Anion Gap 14 mmol/L (10-20); BUN (Urea Nitrogen) 49 mg/dL (8.4-25.7); Calc. Creatinine Clearance 32 mL/min (70-130); Calcium 8.7 mg/dL (7.8-10.44); Carbon Dioxide 26 mmol/L (23-31); Chloride 104 mmol/L (98-107); Estimated GFR-MDRD 28; Glucose 119 mg/dL (83-110); Potassium 3.4 mmol/L (3.5-5.1); Sodium 141 mmol/L (136-145)
[2018-03-08] MEDS: Warfarin Sodium 2.5 MG TAB PO SCH (14:11)
--- NOTE | 2018-03-08 17:06 | PDOC.PN ---
- Subjective Encounter Start Date: 03/08/18 Encounter Start Time: 13:00 Subjective: f/u for volume overload in context of CKD on prior Lasix gtt now converted -: to po. Feels better overall. Legs feel weak. States ambulated at SNF -: up to 80ft with PT. States he does not want SPT. - Objective Resuscitation Status: Resuscitation Status FULL:Full Resuscitation MAR Reviewed: Yes Vital Signs & Weight: Vital Signs (12 hours) Temp Pulse Pulse Pulse Resp BP BP 03/08/18 15:56 86 81 142/62 H 141/63 H 03/08/18 15:00 97.5 F L 82 15 03/08/18 07:35 03/08/18 07:30 97.7 F 88 19 03/08/18 07:10 97.4 F L 81 17 BP Pulse Ox Pulse Ox Pulse Ox 03/08/18 15:56 98 97 03/08/18 15:00 147/65 H 99 03/08/18 07:35 97 03/08/18 07:30 143/62 H 97 03/08/18 07:10 142/63 H 99 Weight Weight 213 lb 3.2 oz I&O: 03/07/18 03/08/18 03/09/18 06:59 06:59 06:59 Intake Total 906 500 Output Total 2375 1300 Balance -1469 -800 Result Diagrams: 03/07/18 05:11 03/08/18 08:52 Additional Labs: Microbiology 03/05/18 16:43 Urine navarro catheter Urine Culture - Final NO GROWTH AT 48 HOURS Laboratory Tests 03/04/18 03/05/18 03/05/18 18:38 05:56 05:56 Plt Count 124 L 124 L INR Creatinine 2.26 H Magnesium 03/05/18 03/05/18 03/06/18 10:18 15:26 10:38 Plt Count 120 L INR Creatinine 2.26 H 2.28 H Magnesium 03/06/18 03/06/18 03/07/18 11:14 17:56 05:11 Plt Count INR 2.0 Creatinine 2.17 H Magnesium 2.2 03/08/18 04:53 Plt Count INR 1.9 Creatinine Magnesium EKG Reviewed by me: Yes (Tele - V-paced) Phys Exam - Physical Examination Constitutional: NAD HEENT: PERRLA, sclera anicteric, oral pharynx no lesions Neck: no nodes, no JVD, supple, full ROM Respiratory: no wheezing, no rales, no rhonchi, clear to auscultation bilateral S1, S2 Cardiovascular: RRR, no significant murmur, no rub, gallop Gastrointestinal: soft, non-tender, no distention, positive bowel sounds Musculoskeletal: pulses present, edema present Neurological: normal sensation, moves all 4 limbs Psychiatric: A&O x 3 Skin: normal turgor, cap refill <2 seconds Dx/Plan (1) Acute renal failure superimposed on stage 4 chronic kidney disease Code(s): N17.9 - ACUTE KIDNEY FAILURE, UNSPECIFIED; N18.4 - CHRONIC KIDNEY DISEASE, STAGE 4 (SEVERE) Status: Acute Comment: Lasix converted to po route , serial monitoring, avoid nephrotoxic meds and limit contrast exposure, serial creatinine (2) General weakness Code(s): R53.1 - WEAKNESS Status: Chronic Comment: SNF, PT/OT for mobilization (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
--- NOTE | 2018-03-08 18:44 | PRG ---
DATE OF SERVICE: 03/08/2018 SUBJECTIVE: Patient was seen and examined at bedside and overnight events noted. Patient denies any shortness of breath or chest pain or palpitation. No history of nausea or vomiting or diarrhea or fever or chills or cramps. OBJECTIVE: GENERAL: This is an elderly white male in no apparent distress. VITAL SIGNS: Temperature 97.5, pulse 82, respirations 18, blood pressure 147/ 65. HEENT: Atraumatic, normocephalic. Oral mucosa is moist. NECK: Supple CARDIOVASCULAR: S1, S2 heard. Rate and rhythm regular. RESPIRATORY: Clear to auscultation. GASTROINTESTINAL: Abdomen is soft. MUSCULOSKELETAL: No tenderness, no edema. DERMATOLOGIC: No skin rash. NEUROLOGIC: Alert, awake, and oriented x3. No focal neurologic deficits. Moving all the extremities. PSYCHIATRIC: Mood and affect normal. LABORATORY DATA: Potassium is 3.4, BUN is 49, creatinine is 2.2. ASSESSMENT AND PLAN: 1. Acute kidney injury, chronic kidney disease stage 4, stable. 2. Fluid overload. Continue on Lasix. 3. Hypertension, stable. 4. Anemia. 5. Edema - improved. We will monitor renal function and continue on Lasix as tolerated. MTDD
[2018-03-09 05:29] LABS: INR-International Normal Ratio 1.7; Prothrombin Time 19.8 SEC (12.0-14.7)
[2018-03-09] MEDS: Levothyroxine Sodium 88 MCG TAB PO SCH (06:11)
[2018-03-09] MEDS: Furosemide 40 MG TAB PO SCH (08:50)
[2018-03-09] MEDS: busPIRone HCl 10 MG TAB PO SCH ×2 (08:50→21:59)
[2018-03-09] MEDS: Carvedilol 6.25 MG TAB PO SCH ×2 (08:50→16:01)
[2018-03-09] MEDS: Hydrocortisone 10 mg Tablet PO SCH ×2 (08:50→21:59)
[2018-03-09] MEDS: Famotidine 20 MG TAB PO SCH (08:50)
[2018-03-09] MEDS: Cephalexin 250 MG CAP PO SCH ×3 (08:51→21:58)
[2018-03-09 09:11] LABS: Hemoglobin 9.9 g/dL (14.0-18.0); Platelet Count 119 thou/uL (130-400)
[2018-03-09 09:18] LABS: Anion Gap 15 mmol/L (10-20); BUN (Urea Nitrogen) 49 mg/dL (8.4-25.7); Calc. Creatinine Clearance 35 mL/min (70-130); Calcium 8.9 mg/dL (7.8-10.44); Carbon Dioxide 28 mmol/L (23-31); Chloride 103 mmol/L (98-107); Estimated GFR-MDRD 30; Glucose 118 mg/dL (83-110); Potassium 3.6 mmol/L (3.5-5.1); Sodium 142 mmol/L (136-145)
[2018-03-09] MEDS ORDERED: WARFARIN PO PRN (10:52)
--- NOTE | 2018-03-09 13:07 | PRG ---
DATE OF SERVICE: 03/08/2018 SUBJECTIVE: The patient is having no complaints today. He has not had any significant pain or fevers. He did not want an SP tube and stated that he wanted to try to find another option. He again has a very poor understanding of how his AUS works or even how to work his artificial sphincter. His sphincter is currently deactivated. OBJECTIVE: VITAL SIGNS: Temperature 97.5, pulse 86, respirations 15, blood pressure 142/62 , saturations 98% on room air. GENERAL: No apparent distress, communicative and alert. Answering questions appropriately. CARDIOVASCULAR: Regular rate and rhythm. ABDOMEN: Soft, nontender and nondistended. GENITOURINARY: Shabazz catheter is in place with clear yellow urine, AUS is still deactivated. EXTREMITIES: 2+ edema bilaterally. LABORATORY DATA: On laboratory evaluation, a full set of labs are in the [facility] system, which I have reviewed. Of note, patient's hemoglobin is currently 9.5 with creatinine of 2.20. ASSESSMENT AND PLAN: An 87-year-old white male with an artificial urinary sphincter, which he no longer knows how to operate with questionable urinary retention. Since the patient does not wish to have an SP tube, I think it would be reasonable to leave his artificial sphincter deactivated. We will remove his Shabazz today. I am concerned that if the patient keeps the Shabazz in for too long, he may develop an erosion which would be catastrophic and life threatening given his comorbidities. I will have the Shabazz discontinued now and we will leave him incontinent with the AUS deactivated. So long as he is able to urinate, we will measure his postvoid residual and evaluate to see if he is emptying adequately. If he is emptying adequately and is able to urinate or at least is able to dribble to near completely empty, then we can leave him without an SP tube and leave his AUS deactivated. However, if he is unable to urinate or has a significant PVR, SP tube may be the best option and I will revisit the issue with the patient and his nephew. He is in agreement with this plan. I will continue to follow along and make recommendations. KEEGAN
--- NOTE | 2018-03-09 16:44 | PRG ---
DATE OF SERVICE: 03/09/2018 SUBJECTIVE: The patient has no complaints today. He states he is leaking significantly when he kaitlynn ds up, but has no significant leakage while he is lying in bed. When standing, he was extremely inco ntinent. His Shabazz catheter was removed last night. He had a bladder scan PVR which he voided appro ximately 450 mL and a PVR less than 100 mL. He is not pleased with the fact that he has leakage, but states he is somewhat unsure between living with significant incontinence versus living with an SP t ube. The patient is currently taking Coumadin. OBJECTIVE: VITAL SIGNS: Temperature 98, pulse 84, respirations 18, blood pressure 127/59, saturation 98% on keena m air. GENERAL: No apparent distress, communicative, alert. CARDIOVASCULAR: Regular rate and rhythm. ABDOMEN: Soft, nontender, nondistended, positive bowel sounds. GENITOURINARY: Patient without catheter. No scrotal edema, redness or cellulitis. EXTREMITIES: 1+ edema bilaterally. ASSESSMENT AND PLAN: An 87-year-old white male with a fluid overload and likely acute kidney injury with congestive heart failure exacerbation with urinary retention secondary to patient's inability to use his artificial urinary sphincter. The sphincter has now been deactivated and he is floridly inc ontinent; however, he is not in urinary retention any longer. At this point, his options were either to reactivate the artificial urinary sphincter and place an SP tube for urinary drainage or just arlin e with the incontinence with the sphincter deactivated since he cannot use it himself. Between the t wo options, I would favor a deactivation of the sphincter with incontinence since placement of an SP tube would require that he come off his Coumadin to require further intervention and further risk. I have discussed this with the patient, but his nephew was not here and is not entirely clear if he tr guzman understands all of his options. For now, I will continue to monitor and follow along, but I thin k the best thing for him at this point would just be to leave his artificial sphincter deactivated.
--- NOTE | 2018-03-09 16:45 | PDOC.PN ---
- Subjective Encounter Start Date: 03/09/18 Encounter Start Time: 10:05 Subjective: f/u for urinary incontinence and deconditioning. Urology d/c'd Navarro -: and pt noted incontinence of urine. Not using AUS. Feels ok overall. - Objective Resuscitation Status: Resuscitation Status FULL:Full Resuscitation MAR Reviewed: Yes Vital Signs & Weight: Vital Signs (12 hours) Temp Pulse Pulse Pulse Resp BP BP 03/09/18 14:58 98.0 F 84 18 03/09/18 10:39 97.6 F 88 18 03/09/18 09:15 88 89 143/65 H 122/54 L 03/09/18 07:38 97.4 F L 80 16 BP Pulse Ox Pulse Ox Pulse Ox 03/09/18 14:58 127/59 L 98 03/09/18 10:39 138/68 98 03/09/18 09:15 95 97 03/09/18 07:38 140/65 99 Weight Weight 222 lb 3.2 oz I&O: 03/08/18 03/09/18 03/10/18 06:59 06:59 06:59 Intake Total 500 820 Output Total 1300 725 200 Balance -800 95 -200 Result Diagrams: 03/09/18 04:34 03/09/18 04:34 Additional Labs: Microbiology 03/05/18 16:43 Urine navarro catheter Urine Culture - Final NO GROWTH AT 48 HOURS Laboratory Tests 03/04/18 03/05/18 03/05/18 18:38 05:56 05:56 Plt Count 124 L 124 L INR Creatinine 2.26 H Magnesium 03/05/18 03/05/18 03/06/18 10:18 15:26 10:38 Plt Count 120 L INR Creatinine 2.26 H 2.28 H Magnesium 03/06/18 03/06/18 03/07/18 11:14 17:56 05:11 Plt Count INR 2.0 Creatinine 2.17 H Magnesium 2.2 03/07/18 03/08/18 03/08/18 05:11 04:53 08:52 Plt Count INR 1.9 Creatinine 2.52 H 2.20 H Magnesium EKG Reviewed by me: Yes (Tele - SR) Phys Exam - Physical Examination Constitutional: NAD HEENT: PERRLA, sclera anicteric, oral pharynx no lesions Neck: no nodes, no JVD, supple, full ROM diminished in bases S1, S2 Cardiovascular: RRR, no significant murmur, no rub, gallop obese Gastrointestinal: soft, non-tender, no distention, positive bowel sounds Musculoskeletal: pulses present, edema present Neurological: normal sensation, moves all 4 limbs Psychiatric: A&O x 3 Skin: normal turgor, cap refill <2 seconds Dx/Plan (1) Acute renal failure superimposed on stage 4 chronic kidney disease Code(s): N17.9 - ACUTE KIDNEY FAILURE, UNSPECIFIED; N18.4 - CHRONIC KIDNEY DISEASE, STAGE 4 (SEVERE) Status: Acute Comment: Lasix converted to po route , serial monitoring, avoid nephrotoxic meds and limit contrast exposure, serial creatinine (2) General weakness Code(s): R53.1 - WEAKNESS Status: Chronic Comment: SNF, PT/OT for mobilization (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 INSUFFICIENCY Status: Chronic Comment: Continue Hydrocortisone, Midodrine (4) Anticoagulant long-term use Code(s): 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 Status: Chronic Comment: Continue Coumadin, INR therapeutic (5) Urinary incontinence Code(s): R32 - UNSPECIFIED URINARY INCONTINENCE Status: Chronic Qualifiers: Urinary Incontinence type: stress incontinence Qualified Code(s): N39.3 - Stress incontinence (female) (male) Comment: Unable to use current AUS, Navarro removed, allow incontinence and use of adult brief, not interested in SPT - Plan continue antibiotics, PT/OT, social services aide, out of bed/ambulate Stable overall -: Continue Lasix 40mg po daily -: Check bladder scan to assess residuals -: OOB/PT -: AM Lab: H/H, creatinine * Likely back to [facility] 03/10/18
[2018-03-09] MEDS ORDERED: Warfarin Sodium 2 MG TAB PO SCH (17:00)
--- NOTE | 2018-03-09 19:25 | PRG ---
DATE OF SERVICE: 03/09/2018 SUBJECTIVE: Patient was seen and examined at bedside and overnight events noted. Patient denies any shortness of breath or chest pain or palpitation. No history of nausea or vomiting or diarrhea or f ever or chills or cramps. OBJECTIVE: GENERAL: This is an obese male in no apparent distress. VITAL SIGNS: Temperature 98.7, pulse 84, respiratory rate 18, blood pressure 138/68. HEENT: Atraumatic, normocephalic. Oral mucosa is moist. NECK: Supple CARDIOVASCULAR: S1, S2 heard. Rate and rhythm regular. RESPIRATORY: Clear to auscultation. GASTROINTESTINAL: Abdomen is soft. MUSCULOSKELETAL: No tenderness, no edema. DERMATOLOGIC: No skin rash. NEUROLOGIC: Alert, awake, and oriented x3. No focal neurologic deficits. Moving all the extremitie s. PSYCHIATRIC: Mood and affect normal. LABORATORY DATA: Potassium is 3.6, BUN is 49, creatinine is 2.08. ASSESSMENT AND PLAN: 1. Acute kidney injury, stable. 2. Fluid overload. Continue on daily Lasix. 3. Hypertension, stable. 4. Anemia. Monitor hemoglobin. Stable creatinine.
[2018-03-10 05:02] LABS: INR-International Normal Ratio 1.4; Prothrombin Time 17.5 SEC (12.0-14.7)
[2018-03-10] MEDS: Levothyroxine Sodium 88 MCG TAB PO SCH (05:54)
[2018-03-10] MEDS: Cephalexin 250 MG CAP PO SCH ×2 (08:02→15:07)
[2018-03-10] MEDS: Famotidine 20 MG TAB PO SCH (08:02)
[2018-03-10] MEDS: Hydrocortisone 10 mg Tablet PO SCH (08:02)
[2018-03-10] MEDS: Furosemide 40 MG TAB PO SCH (08:02)
[2018-03-10] MEDS: Carvedilol 6.25 MG TAB PO SCH (08:02)
[2018-03-10] MEDS: busPIRone HCl 10 MG TAB PO SCH (08:03)
--- NOTE | 2018-03-10 11:27 | DIS ---
DATE OF ADMISSION: 03/04/2018 DATE OF DISCHARGE: 03/10/2018 DISCHARGE DIAGNOSES: 1. Acute on chronic kidney disease stage 4 renal failure, stable. 2. Generalized weakness, chronic. 3. Hypoadrenocorticism. 4. Chronic anticoagulation with Coumadin. 5. Urinary incontinence, chronic. 6. Status post activation of artificial urethral sphincter. 7. Chronic macrocytic anemia, stable. CONSULTATIONS: 1. Dr. Terry with Urology Service. 2. Dr. Mckeon with Nephrology Service. PERTINENT LABORATORY AND X-RAY FINDINGS: Creatinine ranged between 2.08-2.52, estimated GFR ranged b etween 24-30, magnesium level 2.2. LFTs within normal limits. CBC showed a hemoglobin ranging betwe en 9.5-10.0, platelet count ranged between 114-124. INR ranged between 1.4-2.4. Urine culture dated 03/05/2018 showed no growth at 48 hours. HOSPITAL COURSE: The patient was initially admitted to the telemetry unit after presenting with acut e kidney injury in the context of chronic kidney disease stage 4. The patient with the original plan s for initiation of hemodialysis, presenting with increasing lower extremity edema and volume overloa d. The patient was placed on Lasix infusion and monitored for clinical response. The patient had ex cellent response and diuresis with IV Lasix and underwent placement of a Shabazz catheter and the activ ation of his artificial urethral sphincter after confirmed after concerns for bladder outlet obstruct ion. The patient continued to diurese and had appropriate urine output monitored by the Nephrology a nd Urology Service. The patient transitioned from IV Lasix to oral regimen and continued to diurese appropriately. The patient was evaluated by the Urology Service due to a history of an artificial ur ethral sphincter and inability to manage the system. Discussions were had with the patient and his [facility] power of commonwealth attorney regarding management options including placement of a suprapubic catheter an d reactivating the artificial urethral sphincter for long-term management. Due to multiple factors, the patient was not deemed an appropriate candidate for suprapubic catheter placement due to multiple comorbid conditions and prior history of confusion with removal of a prior Tesio catheter. The eugenia ent also unable to manage the artificial urethral sphincter consistently and effectively. Current re commendations are to deactivate the artificial urethral sphincter, at which patient will be incontine nt of urine. The patient will be maintained on adult briefs with the understanding that the incontin ence is indefinite. Overall, the patient did remain clinically stable during the hospital course, to lerating regular oral intake, ambulating with the Physical Therapy with stable vital signs. I have e xamined the patient at the time of discharge and discussed followup instructions with the patient and his nephew, which is medical power of commonwealth attorney. The patient ready for discharge back to [facility] to continue rehabilitation on 03/10/2018. DISCHARGE MEDICATIONS: 1. BuSpar 10 mg p.o. b.i.d. 2. Keflex 500 mg p.o. t.i.d. until 03/11/2018. 3. Gabapentin 100 mg p.o. t.i.d. 4. Cortef 30 mg p.o. b.i.d. 5. DuoNeb 3 mL nebulized q.6 hours p.r.n. 6. Levothyroxine 88 mcg p.o. daily. 7. Midodrine 10 mg p.o. daily. 8. Ranitidine 150 mg p.o. b.i.d. 9. Coumadin 2.5 mg p.o. daily. 10. Tylenol #3 300/30 mg 1 tab p.o. q.6 hours p.r.n. pain. 11. Coreg 6.25 mg p.o. b.i.d. 12. Lasix 40 mg p.o. daily. FOLLOWUP: The patient to follow up with his primary care provider, Dr. Marcio Duncan, after discharge from [facility]. The patient may also follow up with Dr. Terry with Urology Service and to call his office for appointment time and date. Patient will follow up with Dr. Mckeon with Nephrolo gy Service. CONDITION ON DISCHARGE: Fair. ACTIVITY: Ad angus. Rolling walker with standby assistance. DIET: Renal with fluid restriction to 1.5 liters per 24 hours. CODE STATUS: Full. DISPOSITION: Discharged to [place], [place] on 03/10/2018.
--- NOTE | 2018-03-10 15:06 | OP ---
PREOPERATIVE DIAGNOSES: Chronic kidney disease, recovered renal function and is functioning right ar m arteriovenous fistula. POSTOPERATIVE DIAGNOSES: Chronic kidney disease, recovered renal function and is functioning right a rm arteriovenous fistula. PROCEDURE: Removal of right IJ cuffed tunnel hemodialysis catheter. SURGEON: Ankush Interiano M.D. ANESTHESIA: None. PROCEDURE: At the patient's bedside, the sutures around the catheter were loosened with gentle tract ion, the cuffed tunnel dialysis catheter was removed. Hemostasis gained with local pressure. Patien t tolerated the procedure well.
[2018-03-10 15:47] VITALS: BP 141/67; TEMP 97.6
[2018-03-10] MEDS ORDERED: Warfarin Sodium 5 MG TAB PO SCH (17:00)
--- NOTE | 2018-03-10 18:29 | PRG ---
DATE OF SERVICE: 03/10/2018 SUBJECTIVE: Patient was seen and examined at bedside and overnight events noted. Patient denies any shortness of breath or chest pain or palpitation. No history of nausea or vomitin g or diarrhea or fever or chills or cramps. OBJECTIVE: GENERAL: This is an elderly male, in no apparent distress. VITAL SIGNS: Temperature 97.6, pulse 87, respiratory rate 16, blood pressure 141/67. HEENT: Atraumatic, normocephalic. Oral mucosa is moist. NECK: Supple. CARDIOVASCULAR: S1 and S2 heard. Rate and rhythm regular. RESPIRATORY: Clear to auscultation. GASTROINTESTINAL: Abdomen is soft. MUSCULOSKELETAL: No tenderness. No edema. DERMATOLOGIC: No skin rash. NEUROLOGIC: Alert and awake and oriented x3. No focal neurologic deficits. Moving all the extremit ies. PSYCHIATRIC: Mood and affect normal. LABORATORY DATA: Potassium is 3.6, BUN 49, creatinine is 2.28 from yesterday. ASSESSMENT AND PLAN: 1. Acute kidney injury on chronic kidney stage IV. Renal function is stable. Continue on Lasix 40 p.o. daily. 2. We will remove dialysis catheter. Dr. Interiano is consulted. The patient does have a fistula whic h he needs to follow up with Dr. Interiano. 3. Fluid overload, on Lasix. Recommend cautious monitoring of electrolytes and renal function. 4. Hypotension, better after being back on his pituitary medications. 5. History of hypopituitarism. 6. Anemia, stable. Overall, renal function is stable. No acute indication for dialysis. Patient did diurese well with diuretic dose. Continue diuretics with close monitoring and follow up with the clinic in 1-2 weeks.
== END 2018-03-10 16:36 | DRG 683 ==
LOC: ERS 17:36 → 2NO 19:58
PROVIDERS: ADMIT Internal Medicine; ATTEND Internal Medicine
DX: N17.9 Acute kidney failure, unspecified (principal); I50.42 Chronic combined systolic (congestive) and diastolic (congestive) heart failure; I13.0 Hypertensive heart and chronic kidney disease with heart failure and stage 1 through stage 4 chronic kidney disease, or unspecified chronic kidney disease; E23.0 Hypopituitarism; E87.1 Hypo-osmolality and hyponatremia; E27.40 Unspecified adrenocortical insufficiency; I42.8 Other cardiomyopathies; N18.4 Chronic kidney disease, stage 4 (severe); Z46.6 Encounter for fitting and adjustment of urinary device; Z96.0 Presence of urogenital implants; I48.2 Chronic atrial fibrillation; N39.3 Stress incontinence (female) (male); D63.1 Anemia in chronic kidney disease; F03.90 Unspecified dementia, unspecified severity, without behavioral disturbance, psychotic disturbance, mood disturbance, and anxiety; G62.9 Polyneuropathy, unspecified; J44.9 Chronic obstructive pulmonary disease, unspecified; E03.9 Hypothyroidism, unspecified; Z95.810 Presence of automatic (implantable) cardiac defibrillator; Z87.442 Personal history of urinary calculi; Z86.711 Personal history of pulmonary embolism; Z79.01 Long term (current) use of anticoagulants; Z85.46 Personal history of malignant neoplasm of prostate; Z88.1 Allergy status to other antibiotic agents; Z88.2 Allergy status to sulfonamides; Z88.8 Allergy status to other drugs, medicaments and biological substances
CPT/HCPCS: 36415; 71045; 80048; 80053; 81001; 83735; 85007; 85014; 85018; 85025; 85027; 85049; 87086; 93005; 96365; 96366; C1752; C1769; G8978-GP-CL; G8979-GP-CJ; G8996-GN-CJ; G8997-GN-CJ; J0131; J0670; J1644; J1940; J2001; J3010; J7050

== ENCOUNTER 2018-03-25 12:52 | Inpatient (IN) | payer MEDICARE, OTHER ==
--- NOTE | 2018-03-25 13:55 | RAD ---
CHEST 1 VIEW: Date: 03/25/18 HISTORY: Chest pain, right upper extremity edema. COMPARISON: Radiograph dated 03/04/18. FINDINGS: Interval removal of the dialysis catheter. The cardiac device is similar. There is a right subpulmoni c effusion. Bibasilar atelectasis. No pneumothorax. IMPRESSION: 1. Chronic right subpulmonic effusion. 2. Bibasilar atelectasis. POS: [facility]
[2018-03-25 14:02] LABS: #Eosinphils 0.1 thou/uL (0.0-0.7); #Lymphocytes 1.5 thou/uL (1.20-3.40); #Monocytes 0.5 thou/uL (0.11-0.59); #Neutrophils 6.8 thou/uL (1.40-6.50); %Basophils 0.2 % (0.0-1.0); %Eosinophils 0.9 % (0.0-10.0); %Lymphocytes 17.2 % (21.0-51.0); %Monocytes 5.2 % (0.0-10.0); %Neutrophils 76.5 % (42.0-75.0); Hemoglobin 10.5 g/dL (14.0-18.0); Mean Corpuscular HGB CONC 31.5 g/dL (32.0-36.0); Mean Corpuscular Hemoglobin 31.2 pg (27.0-31.0); Mean Corpuscular Volume 98.8 fL (78.0-98.0); Platelet Count 188 thou/uL (130-400); RBC Distribution Width 14.9 % (11.5-14.5); Red Blood Cell (RBC) Count 3.38 mill/uL (4.70-6.10); White Blood Cell (WBC) Count 8.9 thou/uL (4.8-10.8)
--- NOTE | 2018-03-25 14:05 | ULT ---
VENOUS DOPPLER ULTRASOUND OF THE RIGHT UPPER EXTREMITY: HISTORY: Right arm edema with redness and oozing. TECHNIQUE: Munoz-scale ultrasound with color-flow and spectral Doppler imaging of the deep venous system of the r ight upper extremity is performed. FINDINGS: The exam is limited due to edema. The visualized portions of the deep venous system of the right upper extremity demonstrate good flow and normal spectral waveforms without definite evidence of DVT. These include the right internal jug ular, subclavian, axillary, brachial, radial, ulnar, basilic, and cephalic veins. IMPRESSION: No definite evidence of deep venous thrombosis in the right upper extremity. POS: [facility]
[2018-03-25 14:20] LABS: ALT (SGPT) 11 U/L (8-55); AST (SGOT) 12 U/L (5-34); Albumin 3.6 g/dL (3.4-4.8); Alkaline Phosphatase 122 U/L (40-150); Anion Gap 15 mmol/L (10-20); BUN (Urea Nitrogen) 64 mg/dL (8.4-25.7); Bilirubin, Total 0.4 mg/dL (0.2-1.2); Calc. Creatinine Clearance 0 mL/min (70-130); Carbon Dioxide 22 mmol/L (23-31); Chloride 105 mmol/L (98-107); Estimated GFR-MDRD 26; Globulin 2.6 g/dL (2.4-3.5); Glucose 151 mg/dL (83-110); Potassium 3.9 mmol/L (3.5-5.1); Protein, Total 6.2 g/dL (5.8-8.1); Sodium 138 mmol/L (136-145)
[2018-03-25 14:25] LABS: CKMB 2.8 ng/mL (0-6.6)
[2018-03-25 14:31] LABS: Troponin I 0.035 ng/mL (< 0.028)
--- NOTE | 2018-03-25 14:45 | CT ---
CHEST CT WITHOUT CONTRAST: COMPARISON: 12/28/2017. CORRELATION: Abdomen CT 02/08/2018. HISTORY: Dyspnea. FINDINGS: Limited evaluation of the mediastinal structures due to the lack of IV contrast. No mass, lymphadeno hesham, or hematoma. Heart is enlarged. No significant pericardial fluid. There is atherosclerosis of a nonaneurysmal aorta. Upper solid organs are unremarkable. Trachea and central bronchi are patent. Limited evaluation of the left lung due to beam attenuation artifact from transvenous pacemaker. There is bilateral infrahilar consolidation with air bronchogra ms which may represent areas of atelectasis or pneumonia. Findings are more pronounced than the prev ious examination. There is consolidation of the middle lobe with elevation of the right hemidiaphrag m. Component of atelectasis is favored. Trachea and central bronchi are patent. No pleural effusio n or pneumothorax. No lytic or blastic lesions in the osseous structures. IMPRESSION: 1. Cardiomegaly. 2. Atherosclerosis. 3. Middle lobe atelectasis with elevation of the right hemidiaphragm. 4. Bilateral infrahilar opacities due to atelectasis or pneumonia. Continued surveillance is recomm ended. POS: [facility]
[2018-03-25] MEDS ORDERED: Furosemide 40 MG/4 ML VIAL ONE (16:36)
[2018-03-25] MEDS ORDERED: Senokot S 8.6-50 MG TAB PO PRN (17:23)
[2018-03-25 18:26] LABS: INR-International Normal Ratio 1.9; Prothrombin Time 21.8 SEC (12.0-14.7)
[2018-03-25] MEDS ORDERED: Warfarin Sodium 2.5 MG TAB PO SCH (19:00)
[2018-03-25] MEDS ORDERED: Ondansetron PF 4 MG/2 ML Vial IVP PRN (19:32)
[2018-03-25] MEDS ORDERED: Ondansetron ODT 4 MG TAB SL PRN (19:32)
[2018-03-25] MEDS: Gabapentin 100 MG CAP PO PRN (21:10)
[2018-03-25] MEDS: Hydrocortisone 10 mg Tablet PO SCH (21:10)
[2018-03-25] MEDS: Carvedilol 3.125 MG TAB PO SCH (21:11)
[2018-03-25] MEDS: Heparin 5,000 UNITS/ML VIAL SC SCH (21:12)
[2018-03-25] MEDS: Famotidine 20 MG TAB PO SCH (21:12)
[2018-03-25] MEDS: busPIRone HCl 10 MG TAB PO SCH (21:12)
--- NOTE | 2018-03-25 21:16 | RAD ---
RIGHT ELBOW TWO VIEWS: 03/25/18 HISTORY: Right elbow pain. FINDINGS/IMPRESSION: No fracture, dislocation or bony destruction is seen. Surgical clips are seen in the soft tissues of the antecubital fossa. Vascular calcifications are present. A tiny olecranon spur is present. POS: [facility]
--- NOTE | 2018-03-26 04:14 | HP ---
CHIEF COMPLAINT: Shortness of breath and right elbow drainage. HISTORY OF PRESENT ILLNESS: The patient is a very pleasant 87-year-old male who lives in a [place] [employer] [place] who was just recent earlier this month from the hospital, comes in today with shortness of breath a nd right arm clear fluid drainage. The patient currently denies any chest pain. He states that some times he gets short of breath; however, he has noticed that he has been having significant drainage w hich is clear from his right elbow. The patient denies bruising it or hurting it, that he recollects . Denies any fevers. Denies any abdominal pain, nausea, vomiting or diarrhea. The patient walks wi th a walker with significant assistance. PAST MEDICAL HISTORY: As of the following: The patient has a history of panhypopituitarism, history of renal lithiasis, urinary tract infection, history of pulmonary emboli, he has a history of chroni c atrial fibrillation, he is on Coumadin. He has a history of hypothyroidism, hypertension. He has a history of combined systolic and diastolic heart failure, history of peripheral neuropathy. He als o has history of prostate cancer. PAST SURGICAL HISTORY: He has an AICD placement. He has a transsphenoidal pituitary resection. He has had a colonoscopy. He also has a penile implant and a radical prostatectomy. During his last ad mission, the patient had an artificial urethral sphincter which Urology has deactivated and he has a Shabazz catheter in place and patient is incontinent. MEDICATIONS: He takes BuSpar 10 mg t.i.d., carvedilol 6.25 b.i.d., gabapentin 100 mg t.i.d., Solu-Co rtef 10 b.i.d., Synthroid 100 mcg daily, midodrine 10 mg daily, ranitidine 150 mg b.i.d., Coumadin 2 .5 mg daily, and Tylenol No. 3 q.6 hours p.r.n. ALLERGIES: CIPROFLOXACIN, IODINE, MACROBID, and SULFA. FAMILY HISTORY: No history of heart disease or cancer. SOCIAL HISTORY: The patient lives in a [facility] and he is a DNR per documentation. The patient pompa s no history of alcohol use; however, he was a former smoker, quit in 2017 and no drug use. REVIEW OF SYSTEMS: All negative except for the ones mentioned above in the HPI. PHYSICAL EXAMINATION: VITAL SIGNS: Are as following, his temperature is 98.8, heart rate of 90, respirations are 18, blood pressure of 140/80. GENERAL: He is awake, alert, oriented x3, does not appear in any distress. CARDIOVASCULAR: S1, S2 present, heart rate is irregular. LUNGS: Clear to auscultation, no rhonchi or wheezes noted. ABDOMEN: Soft, nontender. Bowel sounds are present x2. EXTREMITIES: His right extremity, he does have a dime-sized area that was covered and it looks like itches have some superficial skin that has been sloughed off and has a small scab. He does have an a geovanna that has significant just clear drainage, this most likely secondary to his anasarca. He has got significant fluid all over in his lower extremities and also in his right and left arm. It did not appear to be infected. He has got 2-3+ lower extremity pitting edema. Does have some mild erythema spots; however, I do not think they appear to be infected. NEUROLOGIC: Neurovascular garcia, no focal deficits noted. LABORATORY DATA: Sodium of 138, potassium of 3.9, BUN of 64, creatinine of 2.36. His BNP was 552.2. His troponin was mildly elevated at 0.035. WBCs, his counts were 8.9; hemoglobin of 10.5; hematocr it of 33.3; his platelets were 188. Coagulation: His INR was subtherapeutic at 1.9. Again, he also had a chest x-ray which appeared to have some chronic right suprapulmonic effusion and also bibasila r atelectasis. ASSESSMENT AND PLAN: The patient is a very pleasant 87-year-old male who presents to the hospital [facility] complaints of shortness of breath and right arm seepage. 1. Shortness of breath. This could be secondary to acute on chronic heart failure. This could be s econdary possible to volume overload. The patient states that he has been taking his diuretics; ratliff alpa, he appears to be significantly clinically volume overloaded. We will start the patient on some diuretics. We will also consult Nephrology since his creatinine is mildly elevated. We will also we igh the patient strict I's and O's. 2. Right elbow abrasion. It does not appear to be infected. Ultrasound was done. No DVT was noted in the right arm. I will also get an x-ray just to make sure he did not have some pain upon palpati on around his elbow area, but there was no erythema noted. 3. Acute kidney injury and chronic kidney disease. We will continue to monitor. We will get Nephro logy on board. This could be cardiorenal syndrome. His creatinine is 2.36, but the patient appears to be third spacing significantly. 4. Diabetes. We will continue his home medications. 5. Hypothyroidism. We will continue his medication and check a TSH.
[2018-03-26 05:10] LABS: #Eosinphils 0.1 thou/uL (0.0-0.7); #Lymphocytes 1.1 thou/uL (1.20-3.40); #Monocytes 0.4 thou/uL (0.11-0.59); #Neutrophils 5.1 thou/uL (1.40-6.50); %Basophils 0.2 % (0.0-1.0); %Lymphocytes 16.4 % (21.0-51.0); %Monocytes 6.3 % (0.0-10.0); %Neutrophils 76.1 % (42.0-75.0); Hemoglobin 9.6 g/dL (14.0-18.0); Mean Corpuscular HGB CONC 31.8 g/dL (32.0-36.0); Mean Corpuscular Hemoglobin 31.1 pg (27.0-31.0); Mean Corpuscular Volume 98.1 fL (78.0-98.0); Mean Platelet Volume 9.1 fL (7.4-10.4); Platelet Count 160 thou/uL (130-400); Red Blood Cell (RBC) Count 3.08 mill/uL (4.70-6.10); White Blood Cell (WBC) Count 6.6 thou/uL (4.8-10.8)
[2018-03-26 05:18] LABS: Anion Gap 14 mmol/L (10-20); BUN (Urea Nitrogen) 66 mg/dL (8.4-25.7); Calc. Creatinine Clearance 34 mL/min (70-130); Calcium 8.9 mg/dL (7.8-10.44); Carbon Dioxide 25 mmol/L (23-31); Chloride 107 mmol/L (98-107); Estimated GFR-MDRD 27; Glucose 127 mg/dL (83-110); Magnesium 2.3 mg/dL (1.6-2.6); Potassium 3.4 mmol/L (3.5-5.1); Sodium 143 mmol/L (136-145)
[2018-03-26] MEDS: Furosemide 40 MG/4 ML VIAL SLOW IVP SCH ×2 (05:25→15:14)
[2018-03-26] MEDS: Levothyroxine Sodium 88 MCG TAB PO SCH (05:25)
[2018-03-26 06:21] LABS: Iron 39 ug/dL (65-175); Iron Binding Capacity, Total 240 mcg/dL (261-462)
[2018-03-26] MEDS ORDERED: Furosemide 100 MG/10 ML VIAL SLOW IVP SCH (09:00)
[2018-03-26] MEDS: Hydrocortisone 10 mg Tablet PO SCH ×2 (09:18→20:40)
[2018-03-26] MEDS: Heparin 5,000 UNITS/ML VIAL SC SCH ×3 (09:18→20:41)
[2018-03-26] MEDS: busPIRone HCl 10 MG TAB PO SCH ×2 (09:18→20:40)
[2018-03-26] MEDS: Carvedilol 3.125 MG TAB PO SCH ×2 (09:18→20:40)
[2018-03-26] MEDS: Senokot S 8.6-50 MG TAB PO SCH ×2 (09:22→20:40)
[2018-03-26] MEDS ORDERED: Potassium Chloride 20 MEQ TAB PO SCH (11:00)
--- NOTE | 2018-03-26 12:42 | PRG ---
DATE OF SERVICE: 03/26/2018 SUBJECTIVE: Patient was seen and examined at bedside and overnight events noted. Patient denies any shortness of breath or chest pain or palpitation. No history of nausea or vomitin g or diarrhea or fever or chills or cramps. OBJECTIVE: GENERAL: This is an obese male, in no acute distress VITAL SIGNS: Temperature 96.4, pulse 87, respiratory rate 18, blood pressure . HEENT: Atraumatic, normocephalic, Oral mucosa is moist. NECK: Supple. CARDIOVASCULAR: S1 S2 heard, Rate and rhythm regular. RESPIRATORY: Clear to auscultation. GASTROINTESTINAL: Abdomen is soft. MUSCULOSKELETAL: No tenderness, No edema. DERMATOLOGIC: No skin rash. NEUROLOGIC: Alert and awake and oriented X3. No focal neurologic deficits. Moving all the extremit ies. PSYCHIATRIC: Mood and affect normal. LABORATORY DATA: Potassium is 3.4, BUN is 66, creatinine is 2.2. ASSESSMENT AND PLAN: 1. Acute kidney injury on chronic kidney stage 4. We will monitor renal function, stable. 2. Edema. 3. Hypopituitarism. 4. Hypokalemia, replaced. 5. Anemia. 6. Cardiorenal syndrome. Plan is to continue on Lasix. Monitor edema and electrolytes and renal function. We will follow.
--- NOTE | 2018-03-26 13:36 | PDOC.PN ---
- Subjective Encounter Start Date: 03/26/18 Encounter Start Time: 10:45 Subjective: pt up in bed no complains - Objective Resuscitation Status: Resuscitation Status DNR:Do Not Resuscitate Vital Signs & Weight: Vital Signs (12 hours) Temp Pulse Resp BP Pulse Ox 03/26/18 12:09 96.4 F L 92 18 143/95 H 95 03/26/18 08:05 96.4 F L 87 18 188/115 H 94 L 03/26/18 04:36 96.7 F L 95 17 144/63 H 90 L Weight Weight 235 lb I&O: 03/25/18 03/26/18 03/27/18 06:59 06:59 06:59 Intake Total 480 Balance 480 Result Diagrams: 03/26/18 04:23 03/26/18 04:23 Phys Exam - Physical Examination Neck: no nodes, no JVD, supple, full ROM Respiratory: no wheezing, no rales, no rhonchi, wheezing present, clear to auscultation bilateral Cardiovascular: RRR, no significant murmur, no rub, gallop, irregular Gastrointestinal: soft, non-tender, no distention, positive bowel sounds Dx/Plan (1) SOB (shortness of breath) Code(s): R06.02 - SHORTNESS OF BREATH Status: Acute (2) CKD (chronic kidney disease) stage 4, GFR 15-29 ml/min Code(s): N18.4 - CHRONIC KIDNEY DISEASE, STAGE 4 (SEVERE) Status: Chronic (3) PVD (peripheral vascular disease) Code(s): I73.9 - PERIPHERAL VASCULAR DISEASE, UNSPECIFIED Status: Acute Comment: nothing to do. just elevate legs and reposition - Plan will continue lasix for now -: will decrease his synthroid -: will give pt iron * . Review of Systems - Review of Systems Respiratory: negative: Cough, Dry, Shortness of Breath, Hemoptysis, SOB with Excertion, Pleuritic Pain, Sputum, Wheezing Cardiovascular: negative: chest pain, palpitations, orthopnea, paroxysmal nocturnal dyspnea, edema, light headedness, other Gastrointestinal: negative: Nausea, Vomiting, Abdominal Pain, Diarrhea, Constipation, Melena, Hematochezia, Other - Medications/Allergies Allergies/Adverse Reactions: Allergies Allergy/AdvReac Type Severity Reaction Status Date / Time ciprofloxacin HCl Allergy Verified 03/25/18 20:17 [From Cipro] iodine Allergy Verified 03/25/18 20:17 nitrofurantoin Allergy Verified 03/25/18 20:17 macrocrystalline [From Macrodantin] Sulfa (Sulfonamide Allergy Verified 03/25/18 20:17 Antibiotics) Medications: Current Medications Acetaminophen (Tylenol) 650 mg PO Q4H PRN PRN Reason: Headache/Fever/Mild Pain (1-3) Acetaminophen/Codeine Phosphate (Tylenol #3) 1 tab PO Q6H PRN PRN Reason: Pain Buspirone HCl (Buspar) 10 mg PO BID [facility] Last Admin: 03/26/18 09:18 Dose: 10 mg Carvedilol (Coreg) 6.25 mg PO BID [facility] Last Admin: 03/26/18 09:18 Dose: 6.25 mg Famotidine (Pepcid) 20 mg PO 2100 [facility] Last Admin: 03/25/18 21:12 Dose: 20 mg Ferrous Sulfate (Ferrous Sulfulte) 300 mg PO DAILY [facility] Last Admin: 03/26/18 09:22 Dose: 300 mg Furosemide (Lasix) 40 mg SLOW IVP 0600,1400 [facility] Last Admin: 03/26/18 05:25 Dose: 40 mg Gabapentin (Neurontin) 100 mg PO Q8HR PRN PRN Reason: Pain Last Admin: 03/25/18 21:10 Dose: 100 mg Heparin Sodium (Porcine) (Heparin) 5,000 units SC TID [facility] Last Admin: 03/26/18 09:18 Dose: 5,000 units Hydrocortisone (Cortef) 30 mg PO BID [facility] Last Admin: 03/26/18 09:18 Dose: 30 mg Levothyroxine Sodium (Synthroid) 88 mcg PO 0600 [facility] Last Admin: 03/26/18 05:25 Dose: 88 mcg Miscellaneous Medication (Pharmacy To Dose) 1 each PO ONE PRN PRN Reason: Pharmacy to dose Stop: 04/24/18 17:26 Potassium Chloride (K-Dur) 40 meq PO QAM[facility] Senna/Docusate Sodium (Senokot S) 2 tab PO BID PRN PRN Reason: Constipation Senna/Docusate Sodium (Senokot S) 1 tab PO BID [facility] Last Admin: 03/26/18 09:22 Dose: 1 tab Sodium Chloride (Flush - Normal Saline) 10 ml IVF Q12HR [facility] Last Admin: 03/26/18 09:22 Dose: 10 ml Sodium Chloride (Flush - Normal Saline) 10 ml IVF PRN PRN PRN Reason: Saline Flush Warfarin Sodium (Coumadin) 2.5 mg PO 1700 [facility]
[2018-03-26] MEDS: Warfarin Sodium 2.5 MG TAB PO SCH (17:58)
[2018-03-26] MEDS: Famotidine 20 MG TAB PO SCH (20:40)
[2018-03-27] MEDS: Acetaminophen/Codeine 30-300mg Tablet PO PRN ×2 (00:48→20:35)
[2018-03-27 05:31] LABS: INR-International Normal Ratio 1.7; Prothrombin Time 20.4 SEC (12.0-14.7)
[2018-03-27] MEDS: Levothyroxine Sodium 88 MCG TAB PO SCH (06:01)
[2018-03-27] MEDS: Furosemide 40 MG/4 ML VIAL SLOW IVP SCH (06:01)
[2018-03-27] MEDS ORDERED: Potassium Chloride 20 MEQ TAB PO SCH (08:00)
[2018-03-27] MEDS: busPIRone HCl 10 MG TAB PO SCH ×2 (09:24→20:37)
[2018-03-27] MEDS: Heparin 5,000 UNITS/ML VIAL SC SCH ×3 (09:24→20:36)
[2018-03-27] MEDS: Carvedilol 3.125 MG TAB PO SCH ×2 (09:24→20:38)
[2018-03-27] MEDS: Hydrocortisone 10 mg Tablet PO SCH ×2 (09:24→20:36)
[2018-03-27] MEDS: Senokot S 8.6-50 MG TAB PO SCH ×2 (09:25→20:38)
[2018-03-27 10:54] LABS: Anion Gap 18 mmol/L (10-20); BUN (Urea Nitrogen) 67 mg/dL (8.4-25.7); Calc. Creatinine Clearance 29 mL/min (70-130); Calcium 9.1 mg/dL (7.8-10.44); Carbon Dioxide 21 mmol/L (23-31); Chloride 107 mmol/L (98-107); Estimated GFR-MDRD 23; Glucose 196 mg/dL (83-110); Sodium 142 mmol/L (136-145)
--- NOTE | 2018-03-27 12:10 | PDOC.PN ---
- Subjective Encounter Start Date: 03/27/18 Encounter Start Time: 10:00 Subjective: pt up in bed feels a bit better - Objective Resuscitation Status: Resuscitation Status DNR:Do Not Resuscitate Vital Signs & Weight: Vital Signs (12 hours) Temp Pulse Resp BP Pulse Ox 03/27/18 11:26 97.5 F L 87 20 132/65 93 L 03/27/18 08:03 100 03/27/18 07:58 97.3 F L 85 18 169/80 H 100 03/27/18 05:48 97.5 F L 82 16 102/62 97 Weight Weight 227 lb 1 oz I&O: 03/26/18 03/27/18 03/28/18 06:59 06:59 06:59 Intake Total 480 1460 Balance 480 1460 Result Diagrams: 03/26/18 04:23 03/27/18 09:55 Phys Exam - Physical Examination Neck: no nodes, no JVD, supple, full ROM Respiratory: no wheezing, no rales, no rhonchi, wheezing present, clear to auscultation bilateral Cardiovascular: RRR, no significant murmur, no rub, gallop, irregular Musculoskeletal: edema present bilateral lower ext Dx/Plan (1) SOB (shortness of breath) Code(s): R06.02 - SHORTNESS OF BREATH Status: Acute (2) CKD (chronic kidney disease) stage 4, GFR 15-29 ml/min Code(s): N18.4 - CHRONIC KIDNEY DISEASE, STAGE 4 (SEVERE) Status: Chronic (3) PVD (peripheral vascular disease) Code(s): I73.9 - PERIPHERAL VASCULAR DISEASE, UNSPECIFIED Status: Acute Comment: nothing to do. just elevate legs and reposition - Plan spoke with nephrology will put pt on lasix drip -: will continue to monitor and check bmp daily * . Review of Systems - Review of Systems Respiratory: negative: Cough, Dry, Shortness of Breath, Hemoptysis, SOB with Excertion, Pleuritic Pain, Sputum, Wheezing Cardiovascular: negative: chest pain, palpitations, orthopnea, paroxysmal nocturnal dyspnea, edema, light headedness, other Gastrointestinal: negative: Nausea, Vomiting, Abdominal Pain, Diarrhea, Constipation, Melena, Hematochezia, Other Genitourinary: negative: Dysuria, Frequency, Incontinence, Hematuria, Retention , Other - Medications/Allergies Allergies/Adverse Reactions: Allergies Allergy/AdvReac Type Severity Reaction Status Date / Time ciprofloxacin HCl Allergy Verified 03/25/18 20:17 [From Cipro] iodine Allergy Verified 03/25/18 20:17 nitrofurantoin Allergy Verified 03/25/18 20:17 macrocrystalline [From Macrodantin] Sulfa (Sulfonamide Allergy Verified 03/25/18 20:17 Antibiotics) Medications: Current Medications Acetaminophen (Tylenol) 650 mg PO Q4H PRN PRN Reason: Headache/Fever/Mild Pain (1-3) Acetaminophen/Codeine Phosphate (Tylenol #3) 1 tab PO Q6H PRN PRN Reason: Pain Last Admin: 03/27/18 00:48 Dose: 1 tab Buspirone HCl (Buspar) 10 mg PO BID [facility] Last Admin: 03/27/18 09:24 Dose: 10 mg Carvedilol (Coreg) 6.25 mg PO BID [facility] Last Admin: 03/27/18 09:24 Dose: 6.25 mg Famotidine (Pepcid) 20 mg PO 2100 [facility] Last Admin: 03/26/18 20:40 Dose: 20 mg Ferrous Sulfate (Ferrous Sulfulte) 300 mg PO DAILY [facility] Last Admin: 03/27/18 09:24 Dose: 300 mg Gabapentin (Neurontin) 100 mg PO Q8HR PRN PRN Reason: Pain Last Admin: 03/25/18 21:10 Dose: 100 mg Heparin Sodium (Porcine) (Heparin) 5,000 units SC TID [facility] Last Admin: 03/27/18 09:24 Dose: 5,000 units Hydrocortisone (Cortef) 30 mg PO BID [facility] Last Admin: 03/27/18 09:24 Dose: 30 mg Furosemide 100 mg/ Sodium (Chloride) 110 mls @ 6.6 mls/hr IVPB INF [facility] Levothyroxine Sodium (Synthroid) 75 mcg PO 0600 [facility] Miscellaneous Medication (Pharmacy To Dose) 1 each PO ONE PRN PRN Reason: Pharmacy to dose Stop: 04/24/18 17:26 Potassium Chloride (Klor-Con) 40 meq PO QAM-WM [facility] Last Admin: 03/27/18 09:23 Dose: 40 meq Senna/Docusate Sodium (Senokot S) 2 tab PO BID PRN PRN Reason: Constipation Senna/Docusate Sodium (Senokot S) 1 tab PO BID [facility] Last Admin: 03/27/18 09:25 Dose: 1 tab Sodium Chloride (Flush - Normal Saline) 10 ml IVF Q12HR [facility] Last Admin: 03/27/18 09:25 Dose: 10 ml Sodium Chloride (Flush - Normal Saline) 10 ml IVF PRN PRN PRN Reason: Saline Flush Last Admin: 03/26/18 15:17 Dose: 10 ml Warfarin Sodium (Coumadin) 2.5 mg PO 1700 [facility] Last Admin: 03/26/18 17:58 Dose: 2.5 mg
[2018-03-27] MEDS: Furosemide 100 MG in Sodium Chloride 0.9% 100 ML IVPB SCH (15:17)
[2018-03-27] MEDS: Warfarin Sodium 2.5 MG TAB PO SCH (17:40)
--- NOTE | 2018-03-27 19:54 | PRG ---
DATE OF SERVICE: 03/27/2018 SUBJECTIVE: Patient was seen and examined at bedside and overnight events noted. Patient denies any shortness of breath or chest pain or palpitation. No history of nausea or vomitin g or diarrhea or fever or chills or cramps. OBJECTIVE: GENERAL: This is an obese male in no acute distress VITAL SIGNS: Temperature 97.9, pulse 82, respiratory rate 18, blood pressure 134/77. HEENT: Atraumatic, normocephalic, Oral mucosa is moist. NECK: Supple. CARDIOVASCULAR: S1S2 heard, Rate and rhythm regular. RESPIRATORY: Clear to auscultation. GASTROINTESTINAL: Abdomen is soft. MUSCULOSKELETAL: No tenderness, No edema. DERMATOLOGIC: No skin rash. NEUROLOGIC: Alert and awake and oriented X3. No focal neurologic deficits. Moving all the extremit ies. PSYCHIATRIC: Mood and affect normal. LABORATORY DATA: Potassium is 4.0, BUN is 67, creatinine is 2.6. ASSESSMENT AND PLAN: 1. Acute kidney injury on chronic kidney stage 4. Renal function was slight worsening with Lasix. We will continue on Lasix drip as tolerated. 2. Edema. 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 4. Hypokalemia, replace. 5. Cardiorenal syndrome. Plan is to start on Lasix drip, monitor I's and O's and renal function.
[2018-03-27] MEDS: Famotidine 20 MG TAB PO SCH (20:38)
[2018-03-28 05:15] LABS: INR-International Normal Ratio 1.7; Prothrombin Time 20.3 SEC (12.0-14.7)
[2018-03-28 05:18] LABS: Anion Gap 15 mmol/L (10-20); BUN (Urea Nitrogen) 66 mg/dL (8.4-25.7); Calc. Creatinine Clearance 28 mL/min (70-130); Calcium 9.2 mg/dL (7.8-10.44); Carbon Dioxide 22 mmol/L (23-31); Chloride 106 mmol/L (98-107); Estimated GFR-MDRD 23; Glucose 144 mg/dL (83-110); Potassium 4.2 mmol/L (3.5-5.1); Sodium 139 mmol/L (136-145)
[2018-03-28] MEDS: Levothyroxine Sodium 75 MCG TAB PO SCH (05:46)
[2018-03-28] MEDS: Senokot S 8.6-50 MG TAB PO SCH ×2 (09:05→20:27)
[2018-03-28] MEDS: Carvedilol 3.125 MG TAB PO SCH ×2 (09:05→20:26)
[2018-03-28] MEDS: busPIRone HCl 10 MG TAB PO SCH ×2 (09:05→20:26)
[2018-03-28] MEDS: Heparin 5,000 UNITS/ML VIAL SC SCH (09:13)
[2018-03-28] MEDS: Hydrocortisone 10 mg Tablet PO SCH ×2 (09:24→20:26)
[2018-03-28] MEDS: Albumin 25% 25 GM/100 ML BOT IVPB SCH ×2 (09:26→20:26)
--- NOTE | 2018-03-28 11:56 | PQF ---
CLINICAL DOCUMENTATION IMPROVEMENT CLARIFICATION FORM: ICD-10 Updated PLEASE DO AN ADDENDUM TO THE PROGRESS NOTE WITH ANY DOCUMENTATION UPDATES OR ADDITIONS AND CARRY THROUGH TO DC SUMMARY. THANK YOU. DATE: 03/28/18; 03/29/18 ATTN: Dr. Cerna/ Dr. Matos Please exercise your independent, professional judgment in responding to the clarification form. Clinical indicators are provided on the bottom of this form for your review Please check appropriate box(s): HEART FAILURE: A. TYPE: [ ] Systolic / HFrEF [ ] Diastolic / HFpEF [ ] Combined Systolic / Diastolic B. ACUITY [ ] Acute [ ] Acute on Chronic [ ] Chronic [ ] Other diagnosis [ ] Unable to determine In addition, please specify: Present on Admission (POA): [ ] Yes [ ] No [ ] Unable to determine For continuity of documentation, please document condition throughout progress notes and discharge summary. Thank You. CLINICAL INDICATORS - SIGNS / SYMPTOMS / LABS H&P 03/25: He has got 2-3+ lower extremity pitting edema BNP 552.2 SOB. This could be secondary to acute on chronic heart failure. RISKS: H&P: Hx of chronic a fib. Hx of HTN; Hx of combined systolic and diastolic heart failure. AICD placement. Renal pn 03/27: CHARI on CKD 4. Edema. cardiorenal syndrome. TREATMENTS: Order 03/27: IV Lasix 6mg/hr Order 03/25: IV Lasix 0600, 1400 . Dc'd 03/27/18 Thank you, Madelyn (This form is maintained as a part of the permanent medical record) 2014 [employer] All Rights Reserved Madelyn Sanders RN, BSN [email or web address] Office: [phone] [facility]
--- NOTE | 2018-03-28 11:56 | PRG ---
DATE OF SERVICE: 03/28/2018 SUBJECTIVE: An 87-year-old gentleman being seen for CKD stage 4. The patient denies any nausea, vom iting or chest pain. PHYSICAL EXAMINATION: GENERAL: Patient is awake, alert. VITAL SIGNS: Afebrile, pulse 79, breathing at 16, blood pressure 134/74. OBJECTIVE: See above. Awake, alert, in no acute distress. GENERAL APPEARANCE AND MENTAL STATUS: Fair. HEAD/NECK: Normocephalic. Atraumatic. EYES: EOMI. No deformity. EARS: Clear. No ulcers. NOSE: Intact. No lesions. MOUTH: Clear. No discharge. THROAT: Clear. No exudate. LUNGS: Clear. No crackles. CARDIAC: S1, S2. No rub. ABDOMEN: Benign. BS+. GENITALIA/RECTUM: Shabazz absent. BACK/EXTREMITIES: Edema 0+ Ulcer- NEUROLOGICAL: Alert and motor intact. SKIN: Rash- Bruise- LYMPHATICS: Edema- Ulcer- LABORATORY: Hemoglobin 9.6, creatinine 2.6. ASSESSMENT AND RECOMMENDATIONS: 1. Chronic kidney disease stage 4, stable. 2. Hypertension, stable. 3. Anemia, stable. No indication for dialysis.
[2018-03-28 12:22] LABS: #Basophils 0.1 thou/uL (0.0-0.2); #Eosinphils 0.1 thou/uL (0.0-0.7); #Lymphocytes 2.1 thou/uL (1.20-3.40); #Monocytes 0.4 thou/uL (0.11-0.59); #Neutrophils 6.1 thou/uL (1.40-6.50); %Basophils 1.6 % (0.0-1.0); %Eosinophils 1.2 % (0.0-10.0); %Lymphocytes 23.5 % (21.0-51.0); %Monocytes 4.3 % (0.0-10.0); %Neutrophils 69.4 % (42.0-75.0); Mean Corpuscular Volume 99.9 fL (78.0-98.0); Mean Platelet Volume 9.1 fL (7.4-10.4); Platelet Count 154 thou/uL (130-400); RBC Distribution Width 15.5 % (11.5-14.5); Red Blood Cell (RBC) Count 3.24 mill/uL (4.70-6.10); White Blood Cell (WBC) Count 8.8 thou/uL (4.8-10.8)
--- NOTE | 2018-03-28 12:44 | CON ---
DATE OF CONSULTATION: 03/25/2018 CONSULTING PHYSICIAN: Jose Simms M.D. REASON FOR CONSULTATION: Acute kidney injury and edema. REASON FOR ADMISSION: Swelling. HISTORY OF PRESENT ILLNESS: An 87-year-old male with a history of chronic kidney disease atria l fibrillation, hypothyroidism, hypopituitarism came to the hospital with swelling. The patient was recently discharged from the hospital and was having swelling. The patient was admitted to [facility]. He is complaining of swelling and weeping. No fever or chills. No nausea or vomiting. No chest pain or palpitations. PAST MEDICAL HISTORY: Positive for chronic kidney disease, panhypopituitarism, pulmonary embolism, a trial fibrillation, syncope, hypothyroidism, generalized weakness, neuropathy. PAST SURGICAL HISTORY: Transsphenoidal pituitary resection, AICD placement, colonoscopy, penile impl ant, radical prostatectomy. HOME MEDICATION: BuSpar, carvedilol, Cortef, DuoNeb, Synthroid, midodrine ranitidine, and Coumadin. ALLERGIES: CIPRO, IODINE, MACROBID, SULFA. FAMILY HISTORY: No history of kidney disease. SOCIAL HISTORY: No smoking, alcohol, drugs. REVIEW OF SYSTEMS: The following complete review of systems was negative, unless otherwise mentioned in the HPI or below: Constitutional: Weight loss or gain, ability to conduct usual activities. Skin: Rash, itching. Eyes: Double vision, pain. ENT/Mouth: Nose bleeding, neck stiffness, pain, tenderness. Cardiovascular: Palpitations, dyspnea on exertion, orthopnea. Respiratory: Shortness of breath, wheezing, cough, hemoptysis, fever or night sweats. Gastrointestinal: Poor appetite, abdominal pain, heartburn, nausea, vomiting, constipation, or diarrhea. Genitourinary: Urgency, frequency, dysuria, nocturia. Musculoskeletal: Pain, swelling. Neurologic/Psychiatric: Anxiety, depression. Allergy/Immunologic: Skin rash, bleeding tendency. PHYSICAL EXAMINATION: GENERAL: This is an obese male, in no apparent distress. VITAL SIGNS: Temperature 97.6, pulse 91, respiratory rate 14, blood pressure 170/46. HEENT: Atraumatic, normocephalic. Oral mucosa is moist. NECK: Supple. CARDIOVASCULAR: S1, S2 heard. Rate and rhythm regular. RESPIRATORY: Clear. ABDOMEN: Soft. MUSCULOSKELETAL: 2+ edema. DERMATOLOGIC: No skin rash. NEUROLOGIC: Alert, awake. PSYCHIATRIC: Mood and affect normal. LABORATORY DATA: Hemoglobin is 10.5, potassium 3.9, BUN 64, creatinine is 2.3. ASSESSMENT AND PLAN: 1. Acute kidney injury on chronic kidney disease, most likely cardiorenal syndrome. Agree with IV L asix. 2. Cardiorenal syndrome. 3. Edema. 4. Hypertension. 5. Anemia, monitor. Plan is to have IV Lasix and monitor. We will follow.
--- NOTE | 2018-03-28 13:34 | PDOC.PN ---
- Subjective Encounter Start Date: 03/28/18 Encounter Start Time: 10:30 Subjective: pt up in bed feels tired - Objective Resuscitation Status: Resuscitation Status DNR:Do Not Resuscitate Vital Signs & Weight: Vital Signs (12 hours) Temp Pulse Resp BP Pulse Ox 03/28/18 12:30 97.3 F L 97 18 151/63 H 94 L 03/28/18 07:50 96 03/28/18 07:40 97.4 F L 89 18 137/58 L 96 03/28/18 03:40 97.6 F 91 18 134/64 100 Weight Weight 232 lb 3 oz I&O: 03/27/18 03/28/18 03/29/18 06:59 06:59 06:59 Intake Total 1460 1366 Output Total 450 Balance 1460 916 Result Diagrams: 03/28/18 11:43 03/28/18 04:30 Phys Exam - Physical Examination Neck: no nodes, no JVD, supple, full ROM Respiratory: wheezing present Cardiovascular: RRR, no significant murmur, no rub, gallop, irregular Gastrointestinal: soft, non-tender, no distention, positive bowel sounds Musculoskeletal: edema present bilaterally upper and lower ext edema Dx/Plan (1) SOB (shortness of breath) Code(s): R06.02 - SHORTNESS OF BREATH Status: Acute (2) CKD (chronic kidney disease) stage 4, GFR 15-29 ml/min Code(s): N18.4 - CHRONIC KIDNEY DISEASE, STAGE 4 (SEVERE) Status: Chronic (3) PVD (peripheral vascular disease) Code(s): I73.9 - PERIPHERAL VASCULAR DISEASE, UNSPECIFIED Status: Acute Comment: nothing to do. just elevate legs and reposition - Plan pt started on lasix drip, iv infiltrated will ask if able to put in a mid -: line since pt is a very hard stick. will get palliative care to see pt -: spoke with nephrology ok to put in a midline * . Review of Systems - Review of Systems Respiratory: negative: Cough, Dry, Shortness of Breath, Hemoptysis, SOB with Excertion, Pleuritic Pain, Sputum, Wheezing Cardiovascular: negative: chest pain, palpitations, orthopnea, paroxysmal nocturnal dyspnea, edema, light headedness, other Gastrointestinal: negative: Nausea, Vomiting, Abdominal Pain, Diarrhea, Constipation, Melena, Hematochezia, Other Genitourinary: negative: Dysuria, Frequency, Incontinence, Hematuria, Retention , Other - Medications/Allergies Allergies/Adverse Reactions: Allergies Allergy/AdvReac Type Severity Reaction Status Date / Time ciprofloxacin HCl Allergy Verified 03/25/18 20:17 [From Cipro] iodine Allergy Verified 03/25/18 20:17 nitrofurantoin Allergy Verified 03/25/18 20:17 macrocrystalline [From Macrodantin] Sulfa (Sulfonamide Allergy Verified 03/25/18 20:17 Antibiotics) Medications: Current Medications Acetaminophen (Tylenol) 650 mg PO Q4H PRN PRN Reason: Headache/Fever/Mild Pain (1-3) Acetaminophen/Codeine Phosphate (Tylenol #3) 1 tab PO Q6H PRN PRN Reason: Pain Last Admin: 03/27/18 20:35 Dose: 1 tab Albumin Human (Albumin 25%) 25 gm IVPB BID [facility] Stop: 03/28/18 21:01 Last Admin: 03/28/18 09:26 Dose: 25 gm Buspirone HCl (Buspar) 10 mg PO BID [facility] Last Admin: 03/28/18 09:05 Dose: 10 mg Carvedilol (Coreg) 6.25 mg PO BID [facility] Last Admin: 03/28/18 09:05 Dose: 6.25 mg Famotidine (Pepcid) 20 mg PO 2100 [facility] Last Admin: 03/27/18 20:38 Dose: 20 mg Ferrous Sulfate (Ferrous Sulfulte) 300 mg PO DAILY [facility] Last Admin: 03/28/18 09:05 Dose: 300 mg Gabapentin (Neurontin) 100 mg PO Q8HR PRN PRN Reason: Pain Last Admin: 03/25/18 21:10 Dose: 100 mg Hydrocortisone (Cortef) 30 mg PO BID [facility] Last Admin: 03/28/18 09:24 Dose: 30 mg Furosemide 100 mg/ Sodium (Chloride) 110 mls @ 6.6 mls/hr IVPB INF [facility] Last Admin: 03/27/18 15:17 Dose: 110 mls Levothyroxine Sodium (Synthroid) 75 mcg PO 0600 [facility] Last Admin: 03/28/18 05:46 Dose: 75 mcg Miscellaneous Medication (Pharmacy To Dose) 1 each PO ONE PRN PRN Reason: Pharmacy to dose Stop: 04/24/18 17:26 Potassium Chloride (Klor-Con) 40 meq PO QAM-WM [facility] Last Admin: 03/28/18 09:04 Dose: 40 meq Senna/Docusate Sodium (Senokot S) 1 tab PO BID [facility] Last Admin: 03/28/18 09:05 Dose: 1 tab Sodium Chloride (Flush - Normal Saline) 10 ml IVF Q12HR [facility] Last Admin: 03/28/18 09:06 Dose: 10 ml Sodium Chloride (Flush - Normal Saline) 10 ml IVF PRN PRN PRN Reason: Saline Flush Last Admin: 03/26/18 15:17 Dose: 10 ml Warfarin Sodium (Coumadin) 4 mg PO 1700 [facility]
[2018-03-28] MEDS: Warfarin Sodium 2 MG TAB PO SCH (17:54)
[2018-03-28] MEDS: Furosemide 100 MG in Sodium Chloride 0.9% 100 ML IVPB SCH (19:37)
[2018-03-28] MEDS: Acetaminophen/Codeine 30-300mg Tablet PO PRN (20:26)
[2018-03-28] MEDS: Famotidine 20 MG TAB PO SCH (20:27)
--- NOTE | 2018-03-28 21:04 | RAD ---
PORTABLE CHEST: History: Central line placement. Comparison: 03-25-18 FINDINGS: Cardiomegaly. Elevated right hemidiaphragm and right basilar infiltrate or atelectasis noted. Central line via the left subclavian in place. The line crosses the midline and then is directed superiorly into the right brachiocephalic. The tip overlies the right apical region. AICD leads unchanged. IMPRESSION: Central line location as described above. The chest findings are stable as noted above. POS: JANNET
[2018-03-28] MEDS: Acetaminophen 325 MG TAB PO PRN (22:41)
[2018-03-28] MEDS: Gabapentin 100 MG CAP PO PRN (22:41)
[2018-03-29] MEDS: Acetaminophen 325 MG TAB PO PRN (00:47)
--- NOTE | 2018-03-29 01:37 | OP ---
PREOPERATIVE DIAGNOSES: Poor IV access, chronic kidney disease. In the past, he has had placement o f 2 right IJ dialysis catheters, left subclavian vein pacemaker in place. PROCEDURES: Successful cannulation failed attempt at placement of right IJ central line. Successful placement of left IJ central line, ultrasound used. SURGEON: Dr. Ankush Interiano. ANESTHESIA: 1% Xylocaine. PROCEDURE IN DETAIL: At the patient's bedside, his neck right and left sides were prepared with Chlo raPrep, draped in routine fashion. Local anesthetic infiltrated into the skin and subcutaneous tissu e about the operative site. Using ultrasound guidance on the right side, I was able to cannulate the right internal jugular vein, but the wire would not thread. I then was able to cannulate the left i nternal jugular vein under ultrasound guidance and Seldinger technique used to place a triple l umen catheter, securing of 3-0 silk suture. Sterile dressing applied. Each port aspirated blood and flushed with saline solution. J wire had been removed. Chest x-ray called for and pending.
[2018-03-29] MEDS: Acetaminophen/Codeine 30-300mg Tablet PO PRN (03:47)
[2018-03-29] MEDS: Levothyroxine Sodium 75 MCG TAB PO SCH (05:09)
[2018-03-29 07:44] LABS: INR-International Normal Ratio 1.9; Prothrombin Time 22.2 SEC (12.0-14.7)
[2018-03-29] MEDS: Carvedilol 3.125 MG TAB PO SCH ×2 (08:51→21:32)
[2018-03-29] MEDS: busPIRone HCl 10 MG TAB PO SCH ×2 (08:52→21:32)
[2018-03-29] MEDS: Hydrocortisone 10 mg Tablet PO SCH ×2 (08:52→21:33)
[2018-03-29] MEDS: Senokot S 8.6-50 MG TAB PO SCH ×2 (08:52→21:35)
[2018-03-29 10:42] LABS: INR-International Normal Ratio 2.1; Prothrombin Time 23.7 SEC (12.0-14.7)
[2018-03-29] MEDS: Furosemide 100 MG in Sodium Chloride 0.9% 100 ML IVPB SCH (13:08)
[2018-03-29] MEDS: Warfarin Sodium 2 MG TAB PO SCH (17:59)
--- NOTE | 2018-03-29 17:59 | PDOC.PN ---
- Subjective Encounter Start Date: 03/29/18 Encounter Start Time: 10:00 Patient seen and examined for CHF exacerbation. No CP. Still has SOB. No new complaints. No overnight events - Objective Resuscitation Status: Resuscitation Status DNR:Do Not Resuscitate MAR Reviewed: Yes Vital Signs & Weight: Vital Signs (12 hours) Temp Pulse Pulse Pulse Resp BP BP 03/29/18 16:33 98 F 86 16 03/29/18 14:05 83 82 125/64 118/84 03/29/18 11:53 98.5 F 82 18 03/29/18 07:30 03/29/18 07:29 97.7 F 84 20 BP Pulse Ox Pulse Ox Pulse Ox 03/29/18 16:33 141/61 H 100 03/29/18 14:05 100 100 03/29/18 11:53 118/57 L 100 03/29/18 07:30 100 03/29/18 07:29 121/52 L 100 Weight Weight 239 lb 4.8 oz I&O: 03/28/18 03/29/18 03/30/18 06:59 06:59 06:59 Intake Total 1366 1202 Output Total 450 1050 Balance 916 152 Result Diagrams: 03/28/18 11:43 03/28/18 04:30 EKG Reviewed by me: Yes (Tele paced) Phys Exam - Physical Examination Constitutional: NAD Respiratory: no wheezing, no rhonchi Bibasilar rales Cardiovascular: RRR, no rub Gastrointestinal: soft, non-tender, positive bowel sounds Musculoskeletal: edema present Neurological: moves all 4 limbs Dx/Plan - Plan IMPRESSION: 1. Acute on chronic systolic and diastolic HF - present on admission - Stage C 2. CHARI on CKD 4/hypokalemia 3. Chr Afib on anticoag 4. 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 Other issues per previous notes PLAN: Cont Lasix drip - not diuresing much Cont current meds as below Cont Coreg Not on ACEI/ARB/Aldactone due to CKD AM labs Cont PT/OT Review of Systems - Review of Systems Respiratory: Shortness of Breath, SOB with Excertion. negative: Cough, Dry, Hemoptysis, Pleuritic Pain, Sputum, Wheezing Cardiovascular: edema. negative: chest pain, palpitations, orthopnea, paroxysmal nocturnal dyspnea, light headedness, other Gastrointestinal: negative: Nausea, Vomiting, Abdominal Pain, Diarrhea, Constipation, Melena, Hematochezia, Other - Medications/Allergies Allergies/Adverse Reactions: Allergies Allergy/AdvReac Type Severity Reaction Status Date / Time ciprofloxacin HCl Allergy Verified 03/25/18 20:17 [From Cipro] iodine Allergy Verified 03/25/18 20:17 nitrofurantoin Allergy Verified 03/25/18 20:17 macrocrystalline [From Macrodantin] Sulfa (Sulfonamide Allergy Verified 03/25/18 20:17 Antibiotics) Medications: Current Medications Acetaminophen (Tylenol) 650 mg PO Q4H PRN PRN Reason: Headache/Fever/Mild Pain (1-3) Last Admin: 03/29/18 00:47 Dose: 650 mg Acetaminophen/Codeine Phosphate (Tylenol #3) 1 tab PO Q6H PRN PRN Reason: Pain Last Admin: 03/29/18 03:47 Dose: 1 tab Buspirone HCl (Buspar) 10 mg PO BID [facility] Last Admin: 03/29/18 08:52 Dose: 10 mg Carvedilol (Coreg) 6.25 mg PO BID [facility] Last Admin: 03/29/18 08:51 Dose: 6.25 mg Famotidine (Pepcid) 20 mg PO 2100 [facility] Last Admin: 03/28/18 20:27 Dose: 20 mg Ferrous Sulfate (Ferrous Sulfulte) 300 mg PO DAILY [facility] Last Admin: 03/29/18 08:51 Dose: 300 mg Gabapentin (Neurontin) 100 mg PO Q8HR PRN PRN Reason: Pain Last Admin: 03/28/18 22:41 Dose: 100 mg Hydrocortisone (Cortef) 30 mg PO BID [facility] Last Admin: 03/29/18 08:52 Dose: 30 mg Furosemide 100 mg/ Sodium (Chloride) 110 mls @ 6.6 mls/hr IVPB INF [facility] Last Admin: 03/29/18 13:08 Dose: 110 mls Levothyroxine Sodium (Synthroid) 75 mcg PO 0600 [facility] Last Admin: 03/29/18 05:09 Dose: 75 mcg Miscellaneous Medication (Pharmacy To Dose) 1 each PO ONE PRN PRN Reason: Pharmacy to dose Stop: 04/24/18 17:26 Potassium Chloride (Klor-Con) 40 meq PO QAM-WM [facility] Last Admin: 03/29/18 08:51 Dose: 40 meq Senna/Docusate Sodium (Senokot S) 1 tab PO BID [facility] Last Admin: 03/29/18 08:52 Dose: 1 tab Sodium Chloride (Flush - Normal Saline) 10 ml IVF Q12HR [facility] Last Admin: 03/29/18 08:52 Dose: 10 ml Sodium Chloride (Flush - Normal Saline) 10 ml IVF PRN PRN PRN Reason: Saline Flush Last Admin: 03/26/18 15:17 Dose: 10 ml Warfarin Sodium (Coumadin) 4 mg PO 1700 [facility] Last Admin: 03/28/18 17:54 Dose: 4 mg
--- NOTE | 2018-03-29 19:06 | PRG ---
DATE OF SERVICE: 03/29/2018 SUBJECTIVE: This is an 87-year-old gentleman being seen for acute kidney injury. The patient denies any nausea, vomiting, or chest pain. PHYSICAL EXAMINATION: GENERAL: Patient is awake and alert. VITAL SIGNS: Pulse 83, breathing 16, blood pressure 141/61. HEAD/NECK: Normocephalic. Atraumatic. EYES: EOMI. No deformity. EARS: Clear. No ulcers. NOSE: Intact. No lesions. MOUTH: Clear. No discharge. THROAT: Clear. No exudate. LUNGS: Clear. No crackles. CARDIAC: S1, S2. No rub. ABDOMEN: Benign. BS+. GENITALIA/RECTUM: Shabazz absent. BACK/EXTREMITIES: Edema 0+ Ulcer- NEUROLOGICAL: Alert and motor intact. SKIN: Rash- Bruise- LYMPHATICS: Edema- Ulcer- LABORATORY DATA: Show hemoglobin 10 and creatinine 2.6. ASSESSMENT AND PLAN: 1. Chronic kidney disease stage 4, stable. 2. Hypertension, stable. 3. Generalized edema. Continue diuresis. 4. Hypothyroidism. I recommend lowering dose of Synthroid.
[2018-03-29] MEDS: Famotidine 20 MG TAB PO SCH (21:32)
[2018-03-30] MEDS: Levothyroxine Sodium 75 MCG TAB PO SCH (05:02)
[2018-03-30] MEDS: Acetaminophen/Codeine 30-300mg Tablet PO PRN ×2 (05:38→20:03)
[2018-03-30] MEDS: Hydrocortisone 10 mg Tablet PO SCH ×2 (08:45→19:51)
[2018-03-30] MEDS: busPIRone HCl 10 MG TAB PO SCH ×2 (08:45→19:55)
[2018-03-30] MEDS: Carvedilol 3.125 MG TAB PO SCH ×2 (08:45→19:55)
[2018-03-30] MEDS: Senokot S 8.6-50 MG TAB PO SCH ×2 (08:45→19:55)
[2018-03-30] MEDS: Furosemide 100 MG in Sodium Chloride 0.9% 100 ML IVPB SCH (08:50)
[2018-03-30 10:45] LABS: INR-International Normal Ratio 2.3
[2018-03-30 10:51] LABS: Albumin 3.7 g/dL (3.4-4.8); Anion Gap 14 mmol/L (10-20); BUN (Urea Nitrogen) 77 mg/dL (8.4-25.7); BUN/Creatinine Ratio 23.77; Calc. Creatinine Clearance 23 mL/min (70-130); Carbon Dioxide 23 mmol/L (23-31); Chloride 103 mmol/L (98-107); Estimated GFR-MDRD 18; Glucose 200 mg/dL (83-110); Magnesium 2.4 mg/dL (1.6-2.6); Phosphorus 4.5 mg/dL (2.3-4.7); Potassium 4.8 mmol/L (3.5-5.1); Sodium 135 mmol/L (136-145)
[2018-03-30 10:58] LABS: Band 7 % (5-11); Hemoglobin 9.3 g/dL (14.0-18.0); Lymphocytes 19 % (21-51); MDiff Complete? YES; Mean Corpuscular HGB CONC 30.3 g/dL (32.0-36.0); Mean Corpuscular Hemoglobin 30.3 pg (27.0-31.0); Mean Corpuscular Volume 99.9 fL (78.0-98.0); Mean Platelet Volume 9.8 fL (7.4-10.4); Metamyelocyte 1 % (0-0); Monocytes 1 % (0-10); Myelocyte 1 % (0-0); Neutrophil 71 % (42-75); Nucleated RBC 1 % (0); PLT Morphology Comment Appears Adequate; Platelet Count 134 thou/uL (130-400); Polychromasia MODERATE = 3-4 cells (100X) (0-2/hpf); RBC Distribution Width 15.8 % (11.5-14.5); Red Blood Cell (RBC) Count 3.07 mill/uL (4.70-6.10); Tear Drops SLIGHT = 2-5 cells (100X) (0-1/hpf); White Blood Cell (WBC) Count 7.2 thou/uL (4.8-10.8)
--- NOTE | 2018-03-30 12:04 | PRG ---
DATE OF SERVICE: 03/30/2018 SUBJECTIVE: This is an 87-year-old gentleman being seen for acute kidney injury. The patient denies any nausea, vomiting or chest pain. PHYSICAL EXAMINATION: GENERAL: Patient is awake, alert. VITAL SIGNS: Afebrile, pulse 87, breathing 16, blood pressure 119/71. OBJECTIVE: See above. Awake, alert, in no acute distress. GENERAL APPEARANCE AND MENTAL STATUS: Fair. HEAD/NECK: Normocephalic. Atraumatic. EYES: EOMI. No deformity. EARS: Clear. No ulcers. NOSE: Intact. No lesions. MOUTH: Clear. No discharge. THROAT: Clear. No exudate. LUNGS: Clear. No crackles. CARDIAC: S1, S2. No rub. ABDOMEN: Benign. BS+. GENITALIA/RECTUM: Shabazz absent. BACK/EXTREMITIES: Edema 0+ Ulcer- NEUROLOGICAL: Alert and motor intact. SKIN: Rash- Bruise- LYMPHATICS: Edema- Ulcer- LABORATORY DATA: Hemoglobin 9.3, potassium 4.8. ASSESSMENT AND RECOMMENDATIONS: 1. Chronic kidney disease stage 4, stable. 2. Hypertension, stable. 3. Anemia, stable. Continue on diuresis. No indication for dialysis.
[2018-03-30] MEDS: Warfarin Sodium 2 MG TAB PO SCH (17:05)
[2018-03-30] MEDS: Famotidine 20 MG TAB PO SCH (19:54)
--- NOTE | 2018-03-30 20:46 | PDOC.PN ---
- Subjective Encounter Start Date: 03/30/18 Encounter Start Time: 11:00 Patient seen and examined for CHF No new complaints. No overnight events - Objective Resuscitation Status: Resuscitation Status DNR:Do Not Resuscitate MAR Reviewed: Yes Vital Signs & Weight: Vital Signs (12 hours) Temp Pulse Pulse Pulse Resp BP BP 03/30/18 16:10 97.5 F L 83 20 03/30/18 13:20 80 82 133/76 106/59 L 03/30/18 11:39 97.6 F 87 18 BP Pulse Ox 03/30/18 16:10 145/90 H 98 03/30/18 13:20 03/30/18 11:39 162/79 H 100 Weight Weight 231 lb 4.8 oz I&O: 03/29/18 03/30/18 03/31/18 06:59 06:59 06:59 Intake Total 1202 1405.4 600 Output Total 1050 725 200 Balance 152 680.4 400 Result Diagrams: 03/30/18 10:20 03/30/18 10:20 EKG Reviewed by me: Yes (Tele paced) Phys Exam - Physical Examination Constitutional: NAD Respiratory: no wheezing, no rhonchi Cardiovascular: RRR, no rub Gastrointestinal: soft, positive bowel sounds Musculoskeletal: edema present Dx/Plan - Plan 1. 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 CHARI on CKD 4/hypokalemia 3. Chr Afib on anticoag - INR 2.3 4. 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 Other issues per previous notes PLAN: Cont Diuresis/Coreg Cont current meds as below AM labs Cont Warfarin Not on ACEI/ARB/Aldactone due to CKD Cont Fluid rest DC PO Potassium chloride Reduce Levothyroxine dose Review of Systems - Review of Systems Respiratory: SOB with Excertion. negative: Cough, Dry, Shortness of Breath, Hemoptysis, Pleuritic Pain, Sputum, Wheezing Cardiovascular: negative: chest pain, palpitations, orthopnea, paroxysmal nocturnal dyspnea, edema, light headedness, other - Medications/Allergies Allergies/Adverse Reactions: Allergies Allergy/AdvReac Type Severity Reaction Status Date / Time ciprofloxacin HCl Allergy Verified 03/25/18 20:17 [From Cipro] iodine Allergy Verified 03/25/18 20:17 nitrofurantoin Allergy Verified 03/25/18 20:17 macrocrystalline [From Macrodantin] Sulfa (Sulfonamide Allergy Verified 03/25/18 20:17 Antibiotics) Medications: Current Medications Acetaminophen (Tylenol) 650 mg PO Q4H PRN PRN Reason: Headache/Fever/Mild Pain (1-3) Last Admin: 03/29/18 00:47 Dose: 650 mg Acetaminophen/Codeine Phosphate (Tylenol #3) 1 tab PO Q6H PRN PRN Reason: Pain Last Admin: 03/30/18 20:03 Dose: 1 tab Buspirone HCl (Buspar) 10 mg PO BID [facility] Last Admin: 03/30/18 19:55 Dose: 10 mg Carvedilol (Coreg) 6.25 mg PO BID [facility] Last Admin: 03/30/18 19:55 Dose: 6.25 mg Famotidine (Pepcid) 20 mg PO 2100 [facility] Last Admin: 03/30/18 19:54 Dose: 20 mg Ferrous Sulfate (Ferrous Sulfulte) 300 mg PO DAILY [facility] Last Admin: 03/30/18 08:45 Dose: 300 mg Gabapentin (Neurontin) 100 mg PO Q8HR PRN PRN Reason: Pain Last Admin: 03/28/18 22:41 Dose: 100 mg Hydrocortisone (Cortef) 30 mg PO BID [facility] Last Admin: 03/30/18 19:51 Dose: 30 mg Furosemide 100 mg/ Sodium (Chloride) 110 mls @ 8.8 mls/hr IVPB INF [facility] Last Admin: 03/30/18 08:50 Dose: 110 mls Levothyroxine Sodium (Synthroid) 50 mcg PO 0600 [facility] Miscellaneous Medication (Pharmacy To Dose) 1 each PO ONE PRN PRN Reason: Pharmacy to dose Stop: 04/24/18 17:26 Senna/Docusate Sodium (Senokot S) 1 tab PO BID [facility] Last Admin: 03/30/18 19:55 Dose: 1 tab Sodium Chloride (Flush - Normal Saline) 10 ml IVF Q12HR [facility] Last Admin: 03/30/18 19:55 Dose: 10 ml Sodium Chloride (Flush - Normal Saline) 10 ml IVF PRN PRN PRN Reason: Saline Flush Last Admin: 03/26/18 15:17 Dose: 10 ml Warfarin Sodium (Coumadin) 4 mg PO 1700 [facility] Last Admin: 03/30/18 17:05 Dose: 4 mg
[2018-03-31] MEDS: Furosemide 100 MG in Sodium Chloride 0.9% 100 ML IVPB SCH ×2 (00:08→13:17)
[2018-03-31] MEDS: Acetaminophen/Codeine 30-300mg Tablet PO PRN ×3 (03:13→20:57)
[2018-03-31] MEDS: Levothyroxine Sodium 50 MCG TAB PO SCH (04:31)
[2018-03-31 04:54] LABS: Hemoglobin 9.6 g/dL (14.0-18.0); Platelet Count 132 thou/uL (130-400)
[2018-03-31 05:03] LABS: INR-International Normal Ratio 2.6; Prothrombin Time 27.7 SEC (12.0-14.7)
[2018-03-31 05:11] LABS: Anion Gap 17 mmol/L (10-20); BUN (Urea Nitrogen) 82 mg/dL (8.4-25.7); Calc. Creatinine Clearance 22 mL/min (70-130); Calcium 9.1 mg/dL (7.8-10.44); Carbon Dioxide 21 mmol/L (23-31); Chloride 102 mmol/L (98-107); Estimated GFR-MDRD 17; Glucose 133 mg/dL (83-110); Sodium 135 mmol/L (136-145)
[2018-03-31] MEDS: Carvedilol 3.125 MG TAB PO SCH ×2 (08:45→20:58)
[2018-03-31] MEDS: Hydrocortisone 10 mg Tablet PO SCH ×2 (08:45→20:58)
[2018-03-31] MEDS: busPIRone HCl 10 MG TAB PO SCH ×2 (08:45→20:58)
[2018-03-31] MEDS: Senokot S 8.6-50 MG TAB PO SCH ×2 (08:45→20:58)
[2018-03-31] MEDS ORDERED: Metolazone 2.5 MG TAB PO SCH (10:30)
--- NOTE | 2018-03-31 10:44 | PRG ---
DATE OF SERVICE: 03/31/2018 SUBJECTIVE: An 87-year-old gentleman being seen for acute kidney injury. The patient denies any cedric sea, vomiting or chest pain. PHYSICAL EXAMINATION: GENERAL: The patient is awake, alert, in moderate distress, complains of dyspnea. VITAL SIGNS: Afebrile, pulse 80, breathing at 16, blood pressure 123/57. GENERAL APPEARANCE AND MENTAL STATUS: Fair. HEAD/NECK: Normocephalic. Atraumatic. EYES: EOMI. No deformity. EARS: Clear. No ulcers. NOSE: Intact. No lesions. MOUTH: Clear. No discharge. THROAT: Clear. No exudate. LUNGS: Clear. No crackles. CARDIAC: S1, S2. No rub. ABDOMEN: Benign. BS+. GENITALIA/RECTUM: Shabazz absent. BACK/EXTREMITIES: Lower extremities have edema. NEUROLOGICAL: Alert and motor intact. SKIN: Rash- Bruise- LYMPHATICS: Edema- Ulcer- LABORATORY: Hemoglobin 9.6, potassium is 5, creatinine 3.4. ASSESSMENT AND RECOMMENDATIONS: 1. 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 Offer ed renal replacement therapy, the patient has declined. 2. Anemia, stable. 3. Medication based on glomerular filtration rate are appropriate. 4. Congestive heart failure, probably diastolic dysfunction. Overall, prognosis is extremely poor.
--- NOTE | 2018-03-31 11:48 | PDOC.PN ---
- Subjective Encounter Start Date: 03/31/18 Encounter Start Time: 11:00 Patient seen and examined for CHF. SOB slightly better. No CP/Palpitations. No new complaints. No overnight events - Objective Resuscitation Status: Resuscitation Status DNR:Do Not Resuscitate MAR Reviewed: Yes Vital Signs & Weight: Vital Signs (12 hours) Temp Pulse Resp BP Pulse Ox 03/31/18 11:38 97.7 F 96 18 118/65 94 L 03/31/18 08:43 98.3 F 90 18 162/83 H 98 03/31/18 03:20 97.5 F L 91 18 123/57 L 97 03/31/18 00:05 87 18 129/80 98 Weight Weight 234 lb 9.6 oz I&O: 03/30/18 03/31/18 04/01/18 06:59 06:59 06:59 Intake Total 1405.4 600 576 Output Total 725 200 275 Balance 680.4 400 301 Result Diagrams: 03/31/18 04:24 03/31/18 04:24 EKG Reviewed by me: Yes (Tele paced) Phys Exam - Physical Examination Constitutional: NAD Respiratory: no wheezing Bibasilar rales with scat rhonchi Cardiovascular: RRR, no rub Gastrointestinal: soft, non-tender, positive bowel sounds Musculoskeletal: edema present Neurological: moves all 4 limbs Dx/Plan - Plan 1. 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 CHARI on CKD 4 - Creatinine worsening 3. Chr Afib on anticoag - INR 2.6 4. 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 Other issues per previous notes PLAN: On Lasix drip - Nephrology following - dose increased to 10mg/hr Cont Coreg - Not on ACEI/ARB/Aldactone due to CKD Cont Warfarin at current dose Cont Fluid rest AM labs including INR Cont current meds as below Review of Systems - Review of Systems Cardiovascular: negative: chest pain, palpitations, orthopnea, paroxysmal nocturnal dyspnea, edema, light headedness, other Gastrointestinal: negative: Nausea, Vomiting, Abdominal Pain, Diarrhea, Constipation, Melena, Hematochezia, Other - Medications/Allergies Allergies/Adverse Reactions: Allergies Allergy/AdvReac Type Severity Reaction Status Date / Time ciprofloxacin HCl Allergy Verified 03/25/18 20:17 [From Cipro] iodine Allergy Verified 03/25/18 20:17 nitrofurantoin Allergy Verified 03/25/18 20:17 macrocrystalline [From Macrodantin] Sulfa (Sulfonamide Allergy Verified 03/25/18 20:17 Antibiotics) Medications: Current Medications Acetaminophen (Tylenol) 650 mg PO Q4H PRN PRN Reason: Headache/Fever/Mild Pain (1-3) Last Admin: 03/29/18 00:47 Dose: 650 mg Acetaminophen/Codeine Phosphate (Tylenol #3) 1 tab PO Q6H PRN PRN Reason: Pain Last Admin: 03/31/18 11:36 Dose: 1 tab Buspirone HCl (Buspar) 10 mg PO BID [facility] Last Admin: 03/31/18 08:45 Dose: 10 mg Carvedilol (Coreg) 6.25 mg PO BID [facility] Last Admin: 03/31/18 08:45 Dose: 6.25 mg Famotidine (Pepcid) 20 mg PO 2100 [facility] Last Admin: 03/30/18 19:54 Dose: 20 mg Ferrous Sulfate (Ferrous Sulfulte) 300 mg PO DAILY [facility] Last Admin: 03/31/18 08:45 Dose: 300 mg Gabapentin (Neurontin) 100 mg PO Q8HR PRN PRN Reason: Pain Last Admin: 03/28/18 22:41 Dose: 100 mg Hydrocortisone (Cortef) 30 mg PO BID [facility] Last Admin: 03/31/18 08:45 Dose: 30 mg Furosemide 100 mg/ Sodium (Chloride) 110 mls @ 11 mls/hr IVPB INF [facility] Last Admin: 03/31/18 00:08 Dose: 110 mls Levothyroxine Sodium (Synthroid) 50 mcg PO 0600 [facility] Last Admin: 03/31/18 04:31 Dose: 50 mcg Metolazone (Zaroxolyn) 2.5 mg PO NOW [facility] Stop: 03/31/18 12:30 Last Admin: 03/31/18 11:36 Dose: 2.5 mg Miscellaneous Medication (Pharmacy To Dose) 1 each PO ONE PRN PRN Reason: Pharmacy to dose Stop: 04/24/18 17:26 Senna/Docusate Sodium (Senokot S) 1 tab PO BID [facility] Last Admin: 03/31/18 08:45 Dose: 1 tab Sodium Chloride (Flush - Normal Saline) 10 ml IVF Q12HR [facility] Last Admin: 03/31/18 08:45 Dose: 10 ml Sodium Chloride (Flush - Normal Saline) 10 ml IVF PRN PRN PRN Reason: Saline Flush Last Admin: 03/26/18 15:17 Dose: 10 ml Warfarin Sodium (Coumadin) 4 mg PO 1700 [facility] Last Admin: 03/30/18 17:05 Dose: 4 mg
[2018-03-31] MEDS: Warfarin Sodium 2 MG TAB PO SCH (16:16)
[2018-03-31] MEDS: Famotidine 20 MG TAB PO SCH (20:58)
[2018-04-01] MEDS: Furosemide 100 MG in Sodium Chloride 0.9% 100 ML IVPB SCH ×3 (01:38→23:11)
[2018-04-01] MEDS: Levothyroxine Sodium 50 MCG TAB PO SCH (05:06)
[2018-04-01 05:57] LABS: Prothrombin Time 30.8 SEC (12.0-14.7)
[2018-04-01 06:10] LABS: Hemoglobin 9.4 g/dL (14.0-18.0); Platelet Count 120 thou/uL (130-400)
[2018-04-01 06:17] LABS: Anion Gap 17 mmol/L (10-20); BUN (Urea Nitrogen) 85 mg/dL (8.4-25.7); Calc. Creatinine Clearance 22 mL/min (70-130); Carbon Dioxide 22 mmol/L (23-31); Chloride 100 mmol/L (98-107); Estimated GFR-MDRD 16; Glucose 119 mg/dL (83-110); Potassium 4.4 mmol/L (3.5-5.1); Sodium 135 mmol/L (136-145)
[2018-04-01] MEDS: busPIRone HCl 10 MG TAB PO SCH ×2 (09:05→20:08)
[2018-04-01] MEDS: Senokot S 8.6-50 MG TAB PO SCH ×2 (09:05→20:08)
[2018-04-01] MEDS: Hydrocortisone 10 mg Tablet PO SCH ×2 (09:05→20:07)
[2018-04-01] MEDS: Carvedilol 3.125 MG TAB PO SCH ×2 (09:05→20:08)
[2018-04-01] MEDS ORDERED: Metolazone 5 MG TAB PO SCH (09:45)
--- NOTE | 2018-04-01 12:05 | PRG ---
DATE OF SERVICE: 04/01/2018 SUBJECTIVE: This is an 87-year-old gentleman being seen for acute kidney injury. The patient denies any nausea, vomiting or chest pain. PHYSICAL EXAMINATION: CONSTITUTIONAL: The patient is awake and alert. VITAL SIGNS: Afebrile, pulse 93, breathing 16, blood pressure 116/62. GENERAL APPEARANCE AND MENTAL STATUS: Fair. HEAD/NECK: Normocephalic. Atraumatic. EYES: EOMI. No deformity. EARS: Clear. No ulcers. NOSE: Intact. No lesions. MOUTH: Clear. No discharge. THROAT: Clear. No exudate. LUNGS: Clear. No crackles. CARDIAC: S1, S2. No rub. ABDOMEN: Benign. BS+. GENITALIA/RECTUM: Shabazz absent. BACK/EXTREMITIES: Lowe extremities show edema. Ulcer- NEUROLOGICAL: Alert and motor intact. SKIN: Rash- Bruise- LYMPHATICS: Edema- Ulcer- LABORATORY DATA: Showed hemoglobin 9.4, creatinine 3.5. ASSESSMENT: 1. Chronic kidney disease, stage 4, continue diuresis. 2. Metabolic acidosis, stable. 3. Hyponatremia, stable. 4. Hypertension, stable. 5. Congestive heart failure. We will add metolazone 5 mg daily. If , we will consider renal replacement therapy. The patient had declined renal replacement the rapy and wants to discuss it with his primary care provider, which is his nephew. I would recommend palliative care consultation.
--- NOTE | 2018-04-01 16:10 | PDOC.PN ---
- Subjective Encounter Start Date: 04/01/18 Encounter Start Time: 08:45 Patient seen and examined for CHF. Feels gen weak. SOB on minimal exertion. No other complaints. No overnight events - Objective Resuscitation Status: Resuscitation Status DNR:Do Not Resuscitate MAR Reviewed: Yes Vital Signs & Weight: Vital Signs (12 hours) Temp Pulse Pulse Resp BP BP Pulse Ox 04/01/18 13:40 95 109/59 L 04/01/18 11:51 97.3 F L 91 18 117/57 L 100 04/01/18 07:30 97.4 F L 93 14 154/64 H 100 Weight Weight 237 lb 9.6 oz I&O: 03/31/18 04/01/18 04/02/18 06:59 06:59 06:59 Intake Total 600 2256 Output Total 200 1000 Balance 400 1256 Result Diagrams: 04/01/18 05:22 04/01/18 05:22 EKG Reviewed by me: Yes (Tele paced) Phys Exam - Physical Examination Constitutional: NAD Respiratory: no wheezing Bibasilar rales with diminished AE at bases Cardiovascular: RRR, no rub Gastrointestinal: soft, positive bowel sounds Musculoskeletal: edema present Neurological: moves all 4 limbs Dx/Plan - Plan 1. Acute on chronic systolic and diastolic HF - slowly improving 2. CHARI on CKD 4 3. Chr Afib on anticoag - INR 3 4. 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 Other issues per previous notes PLAN: Add Metolazone daily per Nephrology recom On Lasix drip Cont Coreg - Not on ACEI/ARB/Aldactone due to CKD Hold Warfarin today Cont Fluid rest - change to 1 lit/day per Nephro recom Refusing dialysis Palliative care following AM labs Cont current meds as below Review of Systems - Review of Systems Cardiovascular: negative: chest pain, palpitations, orthopnea, paroxysmal nocturnal dyspnea, edema, light headedness, other Gastrointestinal: negative: Nausea, Vomiting, Abdominal Pain, Diarrhea, Constipation, Melena, Hematochezia, Other - Medications/Allergies Allergies/Adverse Reactions: Allergies Allergy/AdvReac Type Severity Reaction Status Date / Time ciprofloxacin HCl Allergy Verified 03/25/18 20:17 [From Cipro] iodine Allergy Verified 03/25/18 20:17 nitrofurantoin Allergy Verified 03/25/18 20:17 macrocrystalline [From Macrodantin] Sulfa (Sulfonamide Allergy Verified 03/25/18 20:17 Antibiotics) Medications: Current Medications Acetaminophen (Tylenol) 650 mg PO Q4H PRN PRN Reason: Headache/Fever/Mild Pain (1-3) Last Admin: 03/29/18 00:47 Dose: 650 mg Acetaminophen/Codeine Phosphate (Tylenol #3) 1 tab PO Q6H PRN PRN Reason: Pain Last Admin: 03/31/18 20:57 Dose: 1 tab Buspirone HCl (Buspar) 10 mg PO BID [facility] Last Admin: 04/01/18 09:05 Dose: 10 mg Carvedilol (Coreg) 6.25 mg PO BID [facility] Last Admin: 04/01/18 09:05 Dose: 6.25 mg Famotidine (Pepcid) 20 mg PO 2100 [facility] Last Admin: 03/31/18 20:58 Dose: 20 mg Ferrous Sulfate (Ferrous Sulfulte) 300 mg PO DAILY [facility] Last Admin: 04/01/18 09:04 Dose: 300 mg Gabapentin (Neurontin) 100 mg PO Q8HR PRN PRN Reason: Pain Last Admin: 03/28/18 22:41 Dose: 100 mg Hydrocortisone (Cortef) 30 mg PO BID [facility] Last Admin: 04/01/18 09:05 Dose: 30 mg Furosemide 100 mg/ Sodium (Chloride) 110 mls @ 11 mls/hr IVPB INF [facility] Last Admin: 04/01/18 11:49 Dose: 110 mls Levothyroxine Sodium (Synthroid) 50 mcg PO 0600 [facility] Last Admin: 04/01/18 05:06 Dose: Not Given Metolazone (Zaroxolyn) 5 mg PO 0830 [facility] Miscellaneous Medication (Pharmacy To Dose) 1 each PO ONE PRN PRN Reason: Pharmacy to dose Stop: 04/24/18 17:26 Senna/Docusate Sodium (Senokot S) 1 tab PO BID [facility] Last Admin: 04/01/18 09:05 Dose: 1 tab Sodium Chloride (Flush - Normal Saline) 10 ml IVF Q12HR [facility] Last Admin: 04/01/18 09:05 Dose: 10 ml Sodium Chloride (Flush - Normal Saline) 10 ml IVF PRN PRN PRN Reason: Saline Flush Last Admin: 03/26/18 15:17 Dose: 10 ml Warfarin Sodium (Coumadin) 3 mg PO 1700 [facility]
[2018-04-01] MEDS: Warfarin Sodium 3 MG TAB PO SCH (16:57)
[2018-04-01] MEDS: Acetaminophen/Codeine 30-300mg Tablet PO PRN (20:08)
[2018-04-01] MEDS: Famotidine 20 MG TAB PO SCH (20:08)
[2018-04-02] MEDS: Levothyroxine Sodium 50 MCG TAB PO SCH (05:52)
[2018-04-02 06:45] LABS: INR-International Normal Ratio 3.2; Prothrombin Time 32.6 SEC (12.0-14.7)
[2018-04-02 06:59] LABS: Hemoglobin 9.7 g/dL (14.0-18.0); Platelet Count 119 thou/uL (130-400)
[2018-04-02 07:06] LABS: Anion Gap 19 mmol/L (10-20); BUN (Urea Nitrogen) 90 mg/dL (8.4-25.7); Calc. Creatinine Clearance 22 mL/min (70-130); Calcium 9.1 mg/dL (7.8-10.44); Carbon Dioxide 23 mmol/L (23-31); Chloride 98 mmol/L (98-107); Estimated GFR-MDRD 16; Glucose 127 mg/dL (83-110); Potassium 4.1 mmol/L (3.5-5.1); Sodium 136 mmol/L (136-145)
[2018-04-02] MEDS: Metolazone 5 MG TAB PO SCH (08:33)
[2018-04-02] MEDS: Hydrocortisone 10 mg Tablet PO SCH ×2 (08:33→20:31)
[2018-04-02] MEDS: Senokot S 8.6-50 MG TAB PO SCH ×2 (08:33→20:31)
[2018-04-02] MEDS: busPIRone HCl 10 MG TAB PO SCH ×2 (08:33→20:31)
[2018-04-02] MEDS: Carvedilol 3.125 MG TAB PO SCH ×2 (09:01→20:31)
[2018-04-02] MEDS: Furosemide 100 MG in Sodium Chloride 0.9% 100 ML IVPB SCH (10:15)
--- NOTE | 2018-04-02 14:50 | PRG ---
DATE OF SERVICE: 04/02/2018 SUBJECTIVE: This is an 87-year-old gentleman being seen for end-stage renal disease. The patient de nies any nausea, vomiting, or chest pain. OBJECTIVE: VITAL SIGNS: Afebrile, pulse 88, breathing 16, blood pressure 117/71. HEAD/NECK: Normocephalic. Atraumatic. EYES: EOMI. No deformity. EARS: Clear. No ulcers. NOSE: Intact. No lesions. MOUTH: Clear. No discharge. THROAT: Clear. No exudate. LUNGS: Clear. No crackles. CARDIAC: S1, S2. No rub. ABDOMEN: Benign. BS+. GENITALIA/RECTUM: Shabazz absent. BACK/EXTREMITIES: Edema 0+ Ulcer- NEUROLOGICAL: Alert and motor intact. SKIN: Rash- Bruise- LYMPHATICS: Edema- Ulcer- LABORATORY DATA: Show hemoglobin is 9.7, creatinine of 3.57. ASSESSMENT AND PLAN: 1. Chronic kidney disease stage 4, stable. 2. Hypertension, stable. 3. Anemia, stable. The patient has been on dialysis for edema. Continue metolazone and Lasix.
[2018-04-02] MEDS: Warfarin Sodium 3 MG TAB PO SCH (16:35)
--- NOTE | 2018-04-02 18:29 | PDOC.PN ---
- Subjective Encounter Start Date: 04/02/18 Encounter Start Time: 09:00 Patient seen and examined for CHF. No new complaints. No overnight events - Objective Resuscitation Status: Resuscitation Status DNR:Do Not Resuscitate MAR Reviewed: Yes Vital Signs & Weight: Vital Signs (12 hours) Temp Pulse Resp BP Pulse Ox Pulse Ox 04/02/18 16:31 97.1 F L 90 16 122/62 97 04/02/18 13:20 97 04/02/18 11:54 96.8 F L 89 18 117/71 95 04/02/18 08:30 96.6 F L 89 18 96/50 L 95 Weight Weight 242 lb 6.4 oz I&O: 04/01/18 04/02/18 04/03/18 06:59 06:59 06:59 Intake Total 2256 1320 Output Total 1000 1475 Balance 1256 -155 Result Diagrams: 04/02/18 06:12 04/02/18 06:12 EKG Reviewed by me: Yes (Tele paced) Phys Exam - Physical Examination Constitutional: NAD Respiratory: no wheezing, no rhonchi Dec AE at bases with bibasilar rales Cardiovascular: RRR, no rub Gastrointestinal: soft, non-tender, positive bowel sounds Musculoskeletal: edema present Dx/Plan - Plan 1. Acute on chronic systolic and diastolic HF - slowly improving 2. CHARI on CKD 4 3. Chr Afib on anticoag - INR 3.2 4. 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 Other issues per previous notes PLAN: On Lasix drip with Metolazone Cont Coreg - Not on ACEI/ARB/Aldactone due to CKD Cont Fluid rest Adjust Warfarin dose Refusing dialysis AM labs Cont current meds as below Review of Systems - Review of Systems Constitutional: negative: fever, chills, sweats, weakness, malaise, other Gastrointestinal: negative: Nausea, Vomiting, Abdominal Pain, Diarrhea, Constipation, Melena, Hematochezia, Other - Medications/Allergies Allergies/Adverse Reactions: Allergies Allergy/AdvReac Type Severity Reaction Status Date / Time ciprofloxacin HCl Allergy Verified 03/25/18 20:17 [From Cipro] iodine Allergy Verified 03/25/18 20:17 nitrofurantoin Allergy Verified 03/25/18 20:17 macrocrystalline [From Macrodantin] Sulfa (Sulfonamide Allergy Verified 03/25/18 20:17 Antibiotics) Medications: Current Medications Acetaminophen (Tylenol) 650 mg PO Q4H PRN PRN Reason: Headache/Fever/Mild Pain (1-3) Last Admin: 03/29/18 00:47 Dose: 650 mg Acetaminophen/Codeine Phosphate (Tylenol #3) 1 tab PO Q6H PRN PRN Reason: Pain Last Admin: 04/01/18 20:08 Dose: 1 tab Buspirone HCl (Buspar) 10 mg PO BID [facility] Last Admin: 04/02/18 08:33 Dose: 10 mg Carvedilol (Coreg) 6.25 mg PO BID [facility] Last Admin: 04/02/18 09:01 Dose: Not Given Famotidine (Pepcid) 20 mg PO 2100 [facility] Last Admin: 04/01/18 20:08 Dose: 20 mg Ferrous Sulfate (Ferrous Sulfulte) 300 mg PO DAILY [facility] Last Admin: 04/02/18 08:33 Dose: 300 mg Gabapentin (Neurontin) 100 mg PO Q8HR PRN PRN Reason: Pain Last Admin: 03/28/18 22:41 Dose: 100 mg Hydrocortisone (Cortef) 30 mg PO BID [facility] Last Admin: 04/02/18 08:33 Dose: 30 mg Furosemide 100 mg/ Sodium (Chloride) 110 mls @ 11 mls/hr IVPB INF [facility] Last Admin: 04/02/18 10:15 Dose: 110 mls Levothyroxine Sodium (Synthroid) 50 mcg PO 0600 [facility] Last Admin: 04/02/18 05:52 Dose: 50 mcg Metolazone (Zaroxolyn) 5 mg PO 0830 [facility] Last Admin: 04/02/18 08:33 Dose: 5 mg Miscellaneous Medication (Pharmacy To Dose) 1 each PO ONE PRN PRN Reason: Pharmacy to dose Stop: 04/24/18 17:26 Senna/Docusate Sodium (Senokot S) 1 tab PO BID [facility] Last Admin: 04/02/18 08:33 Dose: 1 tab Sodium Chloride (Flush - Normal Saline) 10 ml IVF Q12HR [facility] Last Admin: 04/02/18 08:33 Dose: 10 ml Sodium Chloride (Flush - Normal Saline) 10 ml IVF PRN PRN PRN Reason: Saline Flush Last Admin: 03/26/18 15:17 Dose: 10 ml Warfarin Sodium (Coumadin) 3 mg PO 1700 [facility] Last Admin: 04/02/18 16:35 Dose: 3 mg
[2018-04-02] MEDS: Famotidine 20 MG TAB PO SCH (20:31)
[2018-04-02] MEDS: Acetaminophen/Codeine 30-300mg Tablet PO PRN (20:33)
[2018-04-03] MEDS: Levothyroxine Sodium 50 MCG TAB PO SCH (06:24)
[2018-04-03] MEDS: Furosemide 100 MG in Sodium Chloride 0.9% 100 ML IVPB SCH ×2 (07:03→19:25)
[2018-04-03 07:14] LABS: Anion Gap 22 mmol/L (10-20); BUN (Urea Nitrogen) 89 mg/dL (8.4-25.7); Calc. Creatinine Clearance 23 mL/min (70-130); Calcium 8.8 mg/dL (7.8-10.44); Carbon Dioxide 17 mmol/L (23-31); Chloride 97 mmol/L (98-107); Estimated GFR-MDRD 17; Glucose 101 mg/dL (83-110); Potassium 4.3 mmol/L (3.5-5.1); Sodium 132 mmol/L (136-145)
[2018-04-03 07:38] LABS: INR-International Normal Ratio 3.3; Prothrombin Time 33.2 SEC (12.0-14.7)
[2018-04-03] MEDS: Senokot S 8.6-50 MG TAB PO SCH ×2 (09:39→20:46)
[2018-04-03] MEDS: Hydrocortisone 10 mg Tablet PO SCH ×2 (09:39→20:46)
[2018-04-03] MEDS: Carvedilol 3.125 MG TAB PO SCH ×2 (09:39→20:46)
[2018-04-03] MEDS: Metolazone 5 MG TAB PO SCH (09:39)
[2018-04-03] MEDS: busPIRone HCl 10 MG TAB PO SCH ×2 (09:39→20:46)
[2018-04-03 10:43] LABS: Anion Gap 20 mmol/L (10-20); BUN (Urea Nitrogen) 89 mg/dL (8.4-25.7); Calc. Creatinine Clearance 23 mL/min (70-130); Calcium 8.9 mg/dL (7.8-10.44); Carbon Dioxide 22 mmol/L (23-31); Chloride 95 mmol/L (98-107); Estimated GFR-MDRD 17; Glucose 118 mg/dL (83-110); Potassium 3.5 mmol/L (3.5-5.1); Sodium 133 mmol/L (136-145)
[2018-04-03 12:31] LABS: Lactic Acid 1.7 mmol/L (0.5-2.2)
--- NOTE | 2018-04-03 14:40 | PRG ---
DATE OF SERVICE: 04/03/2018 SUBJECTIVE: An 87-year-old gentleman, being seen for stage 4 chronic kidney injury. The patient den ies any nausea, vomiting, or chest pain. OBJECTIVE: GENERAL: Patient awake, alert. VITAL SIGNS: breathing 16, blood pressure . GENERAL APPEARANCE AND MENTAL STATUS: Fair. HEAD/NECK: Normocephalic. Atraumatic. EYES: EOMI. No deformity. EARS: Clear. No ulcers. NOSE: Intact. No lesions. MOUTH: Clear. No discharge. THROAT: Clear. No exudate. LUNGS: Clear. No crackles. CARDIAC: S1, S2. No rub. ABDOMEN: Benign. BS+. GENITALIA/RECTUM: Shabazz absent. BACK/EXTREMITIES: Edema 0+ Ulcer- NEUROLOGICAL: Alert and motor intact. SKIN: Rash- Bruise- LYMPHATICS: Edema- Ulcer- LABORATORY DATA: Show hemoglobin 9.7, creatinine 3.4. ASSESSMENT AND RECOMMENDATIONS: 1. Stage 4 chronic kidney disease. No indication for dialysis. Continue diuresis. 2. Hypertension, table. 3. Anemia, stable. 4. Medications based on GFR are appropriate.
--- NOTE | 2018-04-03 16:40 | PDOC.PN ---
- Subjective Encounter Start Date: 04/03/18 Encounter Start Time: 09:00 Patient seen and examined for CHF. No new complaints. No overnight events - Objective Resuscitation Status: Resuscitation Status DNR:Do Not Resuscitate MAR Reviewed: Yes Vital Signs & Weight: Vital Signs (12 hours) Temp Pulse Resp BP BP Pulse Ox 04/03/18 16:26 97.4 F L 88 18 124/71 96 04/03/18 11:34 97.7 F 86 18 122/55 L 98 04/03/18 07:36 97.5 F L 87 18 113/63 96 04/03/18 07:35 98 Weight Weight 244 lb I&O: 04/02/18 04/03/18 04/04/18 06:59 06:59 06:59 Intake Total 1320 1140 Output Total 1475 1900 Balance -155 -760 Result Diagrams: 04/02/18 06:12 04/03/18 06:51 EKG Reviewed by me: Yes (Tele Paced) Phys Exam - Physical Examination Constitutional: NAD Respiratory: no wheezing, no rhonchi Cardiovascular: RRR, no rub Gastrointestinal: soft, non-tender, positive bowel sounds Musculoskeletal: edema present Neurological: moves all 4 limbs Dx/Plan - Plan DVT proph w/SCDs 1. Acute on chronic systolic and diastolic HF - slowly improving 2. CHARI on CKD 4 3. Chr Afib on anticoag - INR 3.2 4. 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 Other issues per previous notes PLAN: Cont Lasix drip with Metolazone per Nephrology Cont Fluid rest Cont Coreg - Not on ACEI/ARB/Aldactone due to CKD Cont current meds as below Adjust Warfarin dose Patient refusing dialysis AM labs Review of Systems - Review of Systems Respiratory: negative: Cough, Dry, Shortness of Breath, Hemoptysis, SOB with Excertion, Pleuritic Pain, Sputum, Wheezing Cardiovascular: negative: chest pain, palpitations, orthopnea, paroxysmal nocturnal dyspnea, edema, light headedness, other Gastrointestinal: negative: Nausea, Vomiting, Abdominal Pain, Diarrhea, Constipation, Melena, Hematochezia, Other - Medications/Allergies Allergies/Adverse Reactions: Allergies Allergy/AdvReac Type Severity Reaction Status Date / Time ciprofloxacin HCl Allergy Verified 03/25/18 20:17 [From Cipro] iodine Allergy Verified 03/25/18 20:17 nitrofurantoin Allergy Verified 03/25/18 20:17 macrocrystalline [From Macrodantin] Sulfa (Sulfonamide Allergy Verified 03/25/18 20:17 Antibiotics) Medications: Current Medications Acetaminophen (Tylenol) 650 mg PO Q4H PRN PRN Reason: Headache/Fever/Mild Pain (1-3) Last Admin: 03/29/18 00:47 Dose: 650 mg Acetaminophen/Codeine Phosphate (Tylenol #3) 1 tab PO Q6H PRN PRN Reason: Pain Last Admin: 04/02/18 20:33 Dose: 1 tab Buspirone HCl (Buspar) 10 mg PO BID [facility] Last Admin: 04/03/18 09:39 Dose: 10 mg Carvedilol (Coreg) 6.25 mg PO BID [facility] Last Admin: 04/03/18 09:39 Dose: 6.25 mg Famotidine (Pepcid) 20 mg PO 2100 [facility] Last Admin: 04/02/18 20:31 Dose: 20 mg Ferrous Sulfate (Ferrous Sulfulte) 300 mg PO DAILY [facility] Last Admin: 04/03/18 09:39 Dose: 300 mg Gabapentin (Neurontin) 100 mg PO Q8HR PRN PRN Reason: Pain Last Admin: 03/28/18 22:41 Dose: 100 mg Hydrocortisone (Cortef) 30 mg PO BID [facility] Last Admin: 04/03/18 09:39 Dose: 30 mg Furosemide 100 mg/ Sodium (Chloride) 110 mls @ 11 mls/hr IVPB INF [facility] Last Admin: 04/03/18 07:03 Dose: 110 mls Levothyroxine Sodium (Synthroid) 50 mcg PO 0600 [facility] Last Admin: 04/03/18 06:24 Dose: 50 mcg Metolazone (Zaroxolyn) 5 mg PO 0830 [facility] Last Admin: 04/03/18 09:39 Dose: 5 mg Miscellaneous Medication (Pharmacy To Dose) 1 each PO ONE PRN PRN Reason: Pharmacy to dose Stop: 04/24/18 17:26 Senna/Docusate Sodium (Senokot S) 1 tab PO BID [facility] Last Admin: 04/03/18 09:39 Dose: 1 tab Sodium Chloride (Flush - Normal Saline) 10 ml IVF Q12HR [facility] Last Admin: 04/03/18 09:40 Dose: 10 ml Sodium Chloride (Flush - Normal Saline) 10 ml IVF PRN PRN PRN Reason: Saline Flush Last Admin: 03/26/18 15:17 Dose: 10 ml Warfarin Sodium (Coumadin) 2.5 mg PO 1700 [facility]
[2018-04-03] MEDS: Warfarin Sodium 2.5 MG TAB PO SCH (17:22)
[2018-04-03] MEDS: Acetaminophen/Codeine 30-300mg Tablet PO PRN (20:46)
[2018-04-03] MEDS: Famotidine 20 MG TAB PO SCH (20:46)
[2018-04-04] MEDS: Levothyroxine Sodium 50 MCG TAB PO SCH (05:42)
[2018-04-04 05:59] LABS: Prothrombin Time 31.2 SEC (12.0-14.7)
[2018-04-04 06:00] LABS: Hemoglobin 9.9 g/dL (14.0-18.0); Platelet Count 116 thou/uL (130-400)
[2018-04-04 06:07] LABS: Anion Gap 18 mmol/L (10-20); BUN (Urea Nitrogen) 97 mg/dL (8.4-25.7); Calc. Creatinine Clearance 23 mL/min (70-130); Calcium 8.8 mg/dL (7.8-10.44); Carbon Dioxide 25 mmol/L (23-31); Chloride 92 mmol/L (98-107); Estimated GFR-MDRD 17; Glucose 120 mg/dL (83-110); Potassium 3.2 mmol/L (3.5-5.1); Sodium 132 mmol/L (136-145)
[2018-04-04] MEDS: Furosemide 100 MG in Sodium Chloride 0.9% 100 ML IVPB SCH ×2 (06:31→20:13)
[2018-04-04] MEDS: Metolazone 5 MG TAB PO SCH (09:00)
[2018-04-04] MEDS: Carvedilol 3.125 MG TAB PO SCH ×2 (09:00→23:02)
[2018-04-04] MEDS: busPIRone HCl 10 MG TAB PO SCH ×2 (09:03→20:20)
[2018-04-04] MEDS: Hydrocortisone 10 mg Tablet PO SCH ×2 (09:03→20:18)
[2018-04-04] MEDS: Senokot S 8.6-50 MG TAB PO SCH ×2 (09:04→23:03)
[2018-04-04] MEDS ORDERED: Potassium Chloride 20 MEQ TAB PO SCH ×2 (09:45→17:00)
--- NOTE | 2018-04-04 10:25 | PRG ---
Patient Name: BUBBA BUENROSTRO Date of service: 04/04/2018 Subjective: Patient was seen and examined at bedside and overnight events noted. Patient denies any shortness of breath or chest pain or palpitation. No history of nausea or vomiting or diarrhea or fever or chills or cramps. Objective: General: This is an elderly male in no apparent distress. Vital signs: Temperature 97, pulse 97, respiratory rate 18, blood pressure 117/ 58. HEENT: Atraumatic, normocephalic. Oral mucosa is moist. Neck: Supple. Cardiovascular: S1 S2 heard. Rate and rhythm regular. Respiratory: Clear to auscultation. Gastrointestinal: Abdomen is soft. Musculoskeletal: No tenderness. No edema. Dermatologic: No skin rash. Neurologic: Alert and awake and oriented X3. No focal neurologic deficits. Moving all the extremities. Psychiatric: Mood and affect normal. LABORATORY DATA: Potassium is 3.2, BUN 97, creatinine is 3.4. ASSESSMENT AND PLAN: 1. 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 Plan is to start on dialysis. Patient is agreeable. I did talk with the patient's nephew, he also is agreeable. Plan is to try dialysis, if he is not feeling might have to consider other options. 2. Hypertension. 3. Anemia. 4. Edema. Edema is getting worse. Renal function is getting worse. Plan is to start on dialysis. Fistula seems to be okay. I did talk with Dr. Interiano and the plan is to start using fistula as tolerated. [facility]
[2018-04-04 11:35] LABS: HBSAg Index 0.35 S/CO (0-0.99); Hep B Surf Ag Non-Reactive S/CO (NonReactive)
--- NOTE | 2018-04-04 18:36 | PDOC.PN ---
- Subjective Encounter Start Date: 04/04/18 Encounter Start Time: 13:00 Patient seen and examined for CHF.SOB same. Intermittent confusion. No new complaints. No overnight events - Objective Resuscitation Status: Resuscitation Status DNR:Do Not Resuscitate MAR Reviewed: Yes Vital Signs & Weight: Vital Signs (12 hours) Temp Pulse Pulse Pulse Resp BP BP 04/04/18 16:50 98.0 F 88 17 04/04/18 12:21 97.7 F 108 H 21 H 04/04/18 11:02 81 81 141/63 H 114/55 L 04/04/18 07:44 97.8 F 97 18 BP Pulse Ox 04/04/18 16:50 121/59 L 98 04/04/18 12:21 114/58 L 96 04/04/18 11:02 04/04/18 07:44 117/58 L 98 Weight Weight 222 lb 11.2 oz I&O: 04/03/18 04/04/18 04/05/18 06:59 06:59 06:59 Intake Total 1140 1000 Output Total 1900 1950 Balance -760 -950 Result Diagrams: 04/04/18 05:39 04/04/18 05:39 EKG Reviewed by me: Yes (Tele paced) Phys Exam - Physical Examination Constitutional: NAD Respiratory: no wheezing Bibasilar rales with rhonchi Cardiovascular: RRR, no rub Gastrointestinal: soft, non-tender, positive bowel sounds Musculoskeletal: edema present Neurological: moves all 4 limbs Dx/Plan - Plan DVT proph w/SCDs 1. Acute on chronic systolic and diastolic HF - Refractory to diuresis 2. CHARI on CKD 4 3. Chr Afib on anticoag - INR 3 4. 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 Other issues per previous notes PLAN: Cont Lasix drip with Metolazone per Nephrology Dialysis today Cont Fluid rest Cont Coreg - Not on ACEI/ARB/Aldactone due to CKD Cont other meds as below Adjust Warfarin dose AM labs Review of Systems - Review of Systems Cardiovascular: negative: chest pain, palpitations, orthopnea, paroxysmal nocturnal dyspnea, edema, light headedness, other Gastrointestinal: negative: Nausea, Vomiting, Abdominal Pain, Diarrhea, Constipation, Melena, Hematochezia, Other - Medications/Allergies Allergies/Adverse Reactions: Allergies Allergy/AdvReac Type Severity Reaction Status Date / Time ciprofloxacin HCl Allergy Verified 03/25/18 20:17 [From Cipro] iodine Allergy Verified 03/25/18 20:17 nitrofurantoin Allergy Verified 03/25/18 20:17 macrocrystalline [From Macrodantin] Sulfa (Sulfonamide Allergy Verified 03/25/18 20:17 Antibiotics) Medications: Current Medications Acetaminophen (Tylenol) 650 mg PO Q4H PRN PRN Reason: Headache/Fever/Mild Pain (1-3) Last Admin: 03/29/18 00:47 Dose: 650 mg Buspirone HCl (Buspar) 10 mg PO BID [facility] Last Admin: 04/04/18 09:03 Dose: 10 mg Carvedilol (Coreg) 6.25 mg PO BID [facility] Last Admin: 04/04/18 09:00 Dose: 6.25 mg Famotidine (Pepcid) 20 mg PO 2100 [facility] Last Admin: 04/03/18 20:46 Dose: 20 mg Ferrous Sulfate (Ferrous Sulfulte) 300 mg PO DAILY [facility] Last Admin: 04/04/18 09:04 Dose: 300 mg Gabapentin (Neurontin) 100 mg PO Q8HR PRN PRN Reason: Pain Last Admin: 03/28/18 22:41 Dose: 100 mg Hydrocortisone (Cortef) 30 mg PO BID [facility] Last Admin: 04/04/18 09:03 Dose: 30 mg Furosemide 100 mg/ Sodium (Chloride) 110 mls @ 11 mls/hr IVPB INF [facility] Last Admin: 04/04/18 06:31 Dose: 110 mls Levothyroxine Sodium (Synthroid) 50 mcg PO 0600 [facility] Last Admin: 04/04/18 05:42 Dose: 50 mcg Metolazone (Zaroxolyn) 5 mg PO 0830 [facility] Last Admin: 04/04/18 09:00 Dose: 5 mg Miscellaneous Medication (Pharmacy To Dose) 1 each PO ONE PRN PRN Reason: Pharmacy to dose Stop: 04/24/18 17:26 Potassium Chloride (K-Dur) 20 meq PO BID[facility] Stop: 04/05/18 08:01 Senna/Docusate Sodium (Senokot S) 1 tab PO BID [facility] Last Admin: 04/04/18 09:04 Dose: 1 tab Sodium Chloride (Flush - Normal Saline) 10 ml IVF Q12HR [facility] Last Admin: 04/04/18 09:04 Dose: 10 ml Sodium Chloride (Flush - Normal Saline) 10 ml IVF PRN PRN PRN Reason: Saline Flush Last Admin: 03/26/18 15:17 Dose: 10 ml Warfarin Sodium (Coumadin) 2.5 mg PO 1700 [facility] Last Admin: 04/03/18 17:22 Dose: 2.5 mg
[2018-04-04] MEDS ORDERED: CEFAZOLIN/Water 2 GM/20 ML SYRINGE SLOW IVP SCH (19:45)
[2018-04-04] MEDS: Warfarin Sodium 2.5 MG TAB PO SCH (20:17)
[2018-04-04] MEDS: Famotidine 20 MG TAB PO SCH (20:20)
[2018-04-05] MEDS: Furosemide 100 MG in Sodium Chloride 0.9% 100 ML IVPB SCH (05:52)
[2018-04-05] MEDS: Levothyroxine Sodium 50 MCG TAB PO SCH (05:53)
[2018-04-05 06:16] LABS: INR-International Normal Ratio 2.6
[2018-04-05 06:33] LABS: Anion Gap 17 mmol/L (10-20); BUN (Urea Nitrogen) 97 mg/dL (8.4-25.7); Calc. Creatinine Clearance 23 mL/min (70-130); Calcium 8.9 mg/dL (7.8-10.44); Carbon Dioxide 27 mmol/L (23-31); Chloride 93 mmol/L (98-107); Estimated GFR-MDRD 18; Glucose 96 mg/dL (83-110); Sodium 134 mmol/L (136-145)
[2018-04-05 06:39] LABS: Potassium 2.9 mmol/L (3.5-5.1)
[2018-04-05 06:40] LABS: Mean Corpuscular HGB CONC 32.4 g/dL (32.0-36.0); Mean Corpuscular Hemoglobin 31.4 pg (27.0-31.0); Mean Corpuscular Volume 96.8 fL (78.0-98.0); Mean Platelet Volume 9.9 fL (7.4-10.4); Platelet Count 122 thou/uL (130-400); RBC Distribution Width 16.9 % (11.5-14.5); Red Blood Cell (RBC) Count 3.17 mill/uL (4.70-6.10); White Blood Cell (WBC) Count 9.5 thou/uL (4.8-10.8)
[2018-04-05 06:41] LABS: Band 3 % (5-11); Eosinophils 2 % (0-10); Lymphocytes 6 % (21-51); MDiff Complete? YES; Monocytes 1 % (0-10); Neutrophil 88 % (42-75); Polychromasia SLIGHT = 2-3 cells (100X) (0-2/hpf)
[2018-04-05] MEDS ORDERED: Potassium Chloride 20 MEQ TAB PO SCH (07:45)
[2018-04-05] MEDS: Hydrocortisone 10 mg Tablet PO SCH ×2 (09:00→20:55)
[2018-04-05] MEDS: Carvedilol 3.125 MG TAB PO SCH ×2 (09:00→20:54)
[2018-04-05] MEDS: busPIRone HCl 10 MG TAB PO SCH ×2 (09:00→20:55)
[2018-04-05] MEDS: Senokot S 8.6-50 MG TAB PO SCH ×2 (09:00→20:55)
[2018-04-05] MEDS: Metolazone 5 MG TAB PO SCH (09:00)
[2018-04-05] MEDS ORDERED: Potassium Chloride 20 MEQ/100 ML PREMIX BAG IVPB SCH (09:15)
[2018-04-05] MEDS ORDERED: Potassium Chloride 20 MEQ in Premix Bag 1 BAG IVPB SCH (09:45)
--- NOTE | 2018-04-05 09:49 | PRG ---
DATE OF SERVICE: 04/05/2018 SUBJECTIVE: Patient was seen and examined at bedside and overnight events noted. Patient denies any shortness of breath or chest pain or palpitation. No history of nausea or vomiting or diarrhea or fever or chills or cramps. OBJECTIVE: GENERAL: This is an obese male, in no apparent distress. VITAL SIGNS: Temperature 97.6, pulse 82, respiratory rate 18, blood pressure 128/67. HEENT: Atraumatic, normocephalic. Oral mucosa is moist. NECK: Supple. CARDIOVASCULAR: S1 and S2 heard. Rate and rhythm regular. RESPIRATORY: Clear to auscultation. GASTROINTESTINAL: Abdomen is soft. MUSCULOSKELETAL: No tenderness. No edema. DERMATOLOGIC: No skin rash. NEUROLOGIC: Alert and awake and oriented x3. No focal neurologic deficits. Moving all the extremities. PSYCHIATRIC: Mood and affect normal. LABORATORY DATA: Potassium is 2.9, BUN 97, creatinine is 3.2. ASSESSMENT AND PLAN: 1. 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 We will plan for tunneled dialysis catheter. 2. Hypertension, remove fluid. 3. Edema, remove fluid with dialysis. 4. Anemia. Monitor. 5. Hypokalemia. We will give a dose of potassium. We will follow. [facility]
[2018-04-05] MEDS ORDERED: Lidocaine 2% PF 5 ML VIAL ONE (10:36)
[2018-04-05] MEDS ORDERED: Sodium Chloride 0.9% 20 ML ONE (10:36)
[2018-04-05] MEDS ORDERED: Bupivacaine HCl 0.5%/Epinephrine 1:200,000/PF 30 ml Vial ONE (10:36)
[2018-04-05] MEDS ORDERED: Heparin 10,000 UNITS/1 ML VIAL ONE (10:36)
[2018-04-05] MEDS ORDERED: CEFAZOLIN 2 GM/50 ML BAG ONE (10:57)
[2018-04-05] MEDS ORDERED: Heparin 1,000 UNITS/ML VIAL ONE (11:11)
[2018-04-05] MEDS ORDERED: Promethazine HCl 25 MG/ML VIAL IM PRN (12:06)
[2018-04-05] MEDS ORDERED: Ondansetron HCl/PF 4 MG/2 ML Vial IVP PRN (12:06)
[2018-04-05] MEDS ORDERED: Promethazine HCl 25 MG/ML VIAL SLOW IVP PRN (12:06)
--- NOTE | 2018-04-05 12:13 | OP ---
DATE OF PROCEDURE: 04/05/2018 PREOPERATIVE DIAGNOSES: End-stage renal disease in need of dialysis access again, presence of left I J triple lumen catheter. POSTOPERATIVE DIAGNOSES: End-stage renal disease in need of dialysis access again, presence of left IJ triple lumen catheter with occluded right IJ outflow. PROCEDURE: Ultrasound guided cannulation right internal jugular vein without success and placed in t he superior vena cava (occluded from so many catheters) right femoral vein hemodialysis catheter cuff ed tunneled. SURGEON: Dr. Ankush Interiano ANESTHESIA: TIVA, local 0.5% Marcaine with epinephrine, 30 mL, mixed with 2% Xylocaine, 10 mL. Fluo roscopy used. PROCEDURE IN DETAIL: The patient was taken to the operating room where under intravenous sedation, n saeid and chest prepped with ChloraPrep, draped in routine fashion. Using local anesthetic infiltrated into skin and subcutaneous tissue trocar catheter cannulated the right internal jugular vein success fully aspirating blood and J wire could not be threaded due to multiple catheters. This site was valerie ndoned. Groins were clipped of hair, prepared with ChloraPrep, draped in routine fashion. Local ane sthetic infiltrated into the skin and subcutaneous tissue at the operative site. Right femoral vein cannulated with trocar catheter. J-wire threaded. Trocar catheter removed. Skin incised and enlarg ed sharply. Stab incision made over the anterior lateral right mid thigh. Cuffed tunneled dialysis catheter tunneled between the two incisions, placing the fabric cuff beneath the skin exit site and c atheter secured with 2 interrupted sutures of 3-0 nylon and Biopatch sterile dressing applied. Small er and medium sized dilator placed over the J-wire in the femoral vein. Dilator and pull-away sheath placed over the J-wire into the femoral vein. Dilator and J-wire removed. Catheter placed with pul l-away sheath. Fluoroscopically, catheter noted to be in good position. Each port aspirated blood a nd flushed with saline solution and heparinized saline solution 1000 units heparin per mL indicated v olume of the port. The patient tolerated the procedure well.
[2018-04-05 14:25] LABS: Potassium 3.1 mmol/L (3.5-5.1)
--- NOTE | 2018-04-05 14:30 | RAD ---
CHEST ONE VIEW: Indication: PACU examination. Comparison: 03-28-18 FINDINGS: Left IJ central venous catheter is unchanged. There is worsening moderate right pleural effusion. Pat thee airspace opacities in the perihilar regions bilaterally persist, possibly reflective of edema. Ca rdiomegaly is stable. AICD is unchanged. No pneumothorax is evident. IMPRESSION: 1. Slight interval increase in size of the right sided pleural effusion. 2. Persistent findings of CHF. 3. Central venous catheter projects in the region of the SVC, which is unchanged in position from the prior exam. POS: [facility]
[2018-04-05] MEDS ORDERED: PHENYLEPHRINE-NS 100 MCG/ML 10 ML SYRINGE ONE (16:37)
[2018-04-05] MEDS ORDERED: PROPOFOL 200 MG/20 ML VIAL ONE (16:37)
[2018-04-05] MEDS: Warfarin Sodium 2.5 MG TAB PO SCH (17:33)
[2018-04-05] MEDS ORDERED: Potassium Chloride 40 MEQ in Premix Bag 1 BAG IVPB SCH (20:00)
--- NOTE | 2018-04-05 20:04 | PDOC.PN ---
- Subjective Encounter Start Date: 04/05/18 Encounter Start Time: 08:00 Patient seen and examined for CHF. No new complaints. No overnight events - Objective Resuscitation Status - Order Detail: 04/05/18 11:36 Resuscitation Status Routine Resuscitation Status: DNAR: NO Resuscitation Discussed with: Per MD notes, "per pt's chart" Additional comments: PC team has discussed with JOSSELIN, nephjose antonio Burris and assisted in completing OOH DNR on previous admissions. MAR Reviewed: Yes Vital Signs & Weight: Weight Admit Weight 233 lb Weight 226 lb I&O: 04/04/18 04/05/18 04/06/18 06:59 06:59 06:59 Intake Total 1000 1160 30 Output Total 1950 2740 2500 Balance -201 -7251 -6462 Result Diagrams: 04/06/18 04:40 04/06/18 04:40 EKG Reviewed by me: Yes (Tele paced) Phys Exam - Physical Examination Constitutional: NAD Respiratory: no wheezing, no rhonchi Bibasilar rales Cardiovascular: RRR, no rub Gastrointestinal: soft, non-tender, positive bowel sounds Musculoskeletal: edema present Neurological: moves all 4 limbs Dx/Plan - Plan 1. Acute on chronic systolic and diastolic HF - Refractory to diuresis 2. CHARI on CKD 4 3. Chr Afib on anticoag - INR 3 4. 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 Other issues per previous notes PLAN: Cont Lasix drip with Metolazone Dialysis access today Cont Fluid rest Cont Coreg - Not on ACEI/ARB/Aldactone due to CKD Cont other meds as below PT INR in AM Replace Potassium AM labs Review of Systems - Review of Systems Respiratory: SOB with Excertion. negative: Cough, Dry, Shortness of Breath, Hemoptysis, Pleuritic Pain, Sputum, Wheezing Gastrointestinal: negative: Nausea, Vomiting, Abdominal Pain, Diarrhea, Constipation, Melena, Hematochezia, Other - Medications/Allergies Allergies/Adverse Reactions: Allergies Allergy/AdvReac Type Severity Reaction Status Date / Time ciprofloxacin HCl Allergy Verified 03/25/18 20:17 [From Cipro] iodine Allergy Verified 03/25/18 20:17 nitrofurantoin Allergy Verified 11/16/18 20:17 macrocrystalline [From Macrodantin] Sulfa (Sulfonamide Allergy Verified 03/25/18 20:17 Antibiotics) Medications: Current Medications Acetaminophen (Tylenol) 650 mg PO Q4H PRN PRN Reason: Headache/Fever/Mild Pain (1-3) Last Admin: 03/29/18 00:47 Dose: 650 mg Buspirone HCl (Buspar) 10 mg PO BID [facility] Last Admin: 04/05/18 09:00 Dose: Not Given Carvedilol (Coreg) 6.25 mg PO BID [facility] Last Admin: 04/05/18 09:00 Dose: Not Given Cefazolin Sodium (Ancef) 2 gm SLOW IVP ONCALL-OR [facility] Famotidine (Pepcid) 20 mg PO 2100 [facility] Last Admin: 04/04/18 20:20 Dose: 20 mg Ferrous Sulfate (Ferrous Sulfulte) 300 mg PO DAILY [facility] Last Admin: 04/05/18 09:00 Dose: Not Given Gabapentin (Neurontin) 100 mg PO Q8HR PRN PRN Reason: Pain Last Admin: 03/28/18 22:41 Dose: 100 mg Hydrocortisone (Cortef) 30 mg PO BID [facility] Last Admin: 04/05/18 09:00 Dose: Not Given Potassium Chloride 40 meq/ (Device) 100 mls @ 25 mls/hr IVPB NOW [facility] Stop: 04/05/18 23:59 Levothyroxine Sodium (Synthroid) 50 mcg PO 0600 [facility] Last Admin: 04/05/18 05:53 Dose: 50 mcg Metolazone (Zaroxolyn) 5 mg PO 0830 [facility] Last Admin: 04/05/18 09:00 Dose: Not Given Miscellaneous Medication (Pharmacy To Dose) 1 each PO ONE PRN PRN Reason: Pharmacy to dose Stop: 04/24/18 17:26 Senna/Docusate Sodium (Senokot S) 1 tab PO BID [facility] Last Admin: 04/05/18 09:00 Dose: Not Given Sodium Chloride (Flush - Normal Saline) 10 ml IVF Q12HR [facility] Last Admin: 04/05/18 09:00 Dose: Not Given Sodium Chloride (Flush - Normal Saline) 10 ml IVF PRN PRN PRN Reason: Saline Flush Last Admin: 04/05/18 05:53 Dose: 10 ml Warfarin Sodium (Coumadin) 2.5 mg PO 1700 [facility] Last Admin: 04/05/18 17:33 Dose: 2.5 mg
[2018-04-05] MEDS: Famotidine 20 MG TAB PO SCH (20:55)
[2018-04-06 05:26] LABS: Anion Gap 15 mmol/L (10-20); BUN (Urea Nitrogen) 69 mg/dL (8.4-25.7); Calc. Creatinine Clearance 27 mL/min (70-130); Calcium 8.5 mg/dL (7.8-10.44); Carbon Dioxide 28 mmol/L (23-31); Chloride 96 mmol/L (98-107); Estimated GFR-MDRD 22; Glucose 108 mg/dL (83-110); Magnesium 2.4 mg/dL (1.6-2.6); Potassium 3.6 mmol/L (3.5-5.1); Sodium 135 mmol/L (136-145)
[2018-04-06 05:32] LABS: INR-International Normal Ratio 2.6; Prothrombin Time 27.9 SEC (12.0-14.7)
[2018-04-06 05:36] LABS: #Eosinphils 0.1 thou/uL (0.0-0.7); #Lymphocytes 0.6 thou/uL (1.20-3.40); #Monocytes 0.3 thou/uL (0.11-0.59); #Neutrophils 8.3 thou/uL (1.40-6.50); %Basophils 0.2 % (0.0-1.0); %Eosinophils 0.8 % (0.0-10.0); %Lymphocytes 6.9 % (21.0-51.0); %Monocytes 3.1 % (0.0-10.0); %Neutrophils 89.1 % (42.0-75.0); Hemoglobin 10.1 g/dL (14.0-18.0); Mean Corpuscular HGB CONC 32.4 g/dL (32.0-36.0); Mean Corpuscular Hemoglobin 31.7 pg (27.0-31.0); Mean Corpuscular Volume 97.9 fL (78.0-98.0); Platelet Count 115 thou/uL (130-400); RBC Distribution Width 16.6 % (11.5-14.5); Red Blood Cell (RBC) Count 3.19 mill/uL (4.70-6.10); White Blood Cell (WBC) Count 9.3 thou/uL (4.8-10.8)
[2018-04-06] MEDS: Levothyroxine Sodium 50 MCG TAB PO SCH (06:27)
[2018-04-06] MEDS ORDERED: Tuberculin PPD 0.1 ML VIAL I-DERMAL SCH ×3 (08:15→20:15)
[2018-04-06] MEDS: Hydrocortisone 10 mg Tablet PO SCH ×2 (08:20→20:35)
[2018-04-06] MEDS: Senokot S 8.6-50 MG TAB PO SCH ×2 (08:20→20:35)
[2018-04-06] MEDS: Metolazone 5 MG TAB PO SCH (08:20)
[2018-04-06] MEDS: busPIRone HCl 10 MG TAB PO SCH ×2 (08:20→20:35)
[2018-04-06] MEDS: Carvedilol 3.125 MG TAB PO SCH ×2 (08:20→20:35)
[2018-04-06] MEDS ORDERED: Heparin 10,000 UNITS/ 10 ML VIAL ONE (09:00)
[2018-04-06] MEDS: traMADol HCl 50 MG TAB PO PRN ×2 (12:34→23:51)
--- NOTE | 2018-04-06 14:26 | PDOC.PN ---
- Subjective Encounter Start Date: 04/06/18 Encounter Start Time: 08:00 Patient seen and examined for CHF. Underwent dialysis yesterday. No CP. No new complaints. No overnight events - Objective Resuscitation Status - Order Detail: 04/05/18 11:36 Resuscitation Status Routine Resuscitation Status: DNAR: NO Resuscitation Discussed with: Per MD notes, "per pt's chart" Additional comments: PC team has discussed with MPOA, nephjose antonio Burris and assisted in completing OOH DNR on previous admissions. MAR Reviewed: Yes Vital Signs & Weight: Vital Signs (12 hours) Temp Pulse Resp BP Pulse Ox 04/06/18 13:10 97.5 F L 100 22 H 125/55 L 94 L 04/06/18 08:12 97.5 F L 81 16 103/56 L 96 04/06/18 03:10 96.5 F L 87 16 97/53 L 93 L Weight Admit Weight 233 lb Weight 229 lb I&O: 04/05/18 04/06/18 04/07/18 06:59 06:59 06:59 Intake Total 1160 340 Output Total 2740 3350 Balance -1580 -3010 Result Diagrams: 04/06/18 04:40 04/06/18 04:40 EKG Reviewed by me: Yes (Tele paced) Phys Exam - Physical Examination Constitutional: NAD Respiratory: no wheezing, no rhonchi Bibasilar rales Cardiovascular: RRR, no rub Gastrointestinal: soft, positive bowel sounds Musculoskeletal: edema present Neurological: moves all 4 limbs Dx/Plan - Plan 1. Acute on chronic systolic and diastolic HF - Refractory to diuresis 2. CHARI on CKD 4/ESRD - started on dialysis 3. Chr Afib on anticoag 4. 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 Other issues per previous notes PLAN: Dialysis per Nephrology Cont Coreg - Not on ACEI/ARB/Aldactone due to CKD Cont other meds as below BMP/PT INR in AM Outpatient dialysis setup Review of Systems - Review of Systems Respiratory: SOB with Excertion. negative: Cough, Dry, Shortness of Breath, Hemoptysis, Pleuritic Pain, Sputum, Wheezing Cardiovascular: negative: chest pain, palpitations, orthopnea, paroxysmal nocturnal dyspnea, edema, light headedness, other - Medications/Allergies Allergies/Adverse Reactions: Allergies Allergy/AdvReac Type Severity Reaction Status Date / Time ciprofloxacin HCl Allergy Verified 03/25/18 20:17 [From Cipro] iodine Allergy Verified 03/25/18 20:17 nitrofurantoin Allergy Verified 03/25/18 20:17 macrocrystalline [From Macrodantin] Sulfa (Sulfonamide Allergy Verified 03/25/18 20:17 Antibiotics) Medications: Current Medications Acetaminophen (Tylenol) 650 mg PO Q4H PRN PRN Reason: Headache/Fever/Mild Pain (1-3) Last Admin: 03/29/18 00:47 Dose: 650 mg Acetaminophen (Tylenol) 650 mg PO TID [facility] Buspirone HCl (Buspar) 10 mg PO BID [facility] Last Admin: 04/06/18 08:20 Dose: 10 mg Carvedilol (Coreg) 6.25 mg PO BID [facility] Last Admin: 04/06/18 08:20 Dose: 6.25 mg Cefazolin Sodium (Ancef) 2 gm SLOW IVP ONCALL-OR [facility] Famotidine (Pepcid) 20 mg PO 2100 [facility] Last Admin: 04/05/18 20:55 Dose: 20 mg Ferrous Sulfate (Ferrous Sulfulte) 300 mg PO DAILY [facility] Last Admin: 04/06/18 08:20 Dose: 300 mg Gabapentin (Neurontin) 100 mg PO Q8HR PRN PRN Reason: Pain Last Admin: 03/28/18 22:41 Dose: 100 mg Hydrocortisone (Cortef) 30 mg PO BID [facility] Last Admin: 04/06/18 08:20 Dose: 30 mg Levothyroxine Sodium (Synthroid) 50 mcg PO 0600 [facility] Last Admin: 04/06/18 06:27 Dose: 50 mcg Metolazone (Zaroxolyn) 5 mg PO 0830 [facility] Last Admin: 04/06/18 08:20 Dose: 5 mg Miscellaneous Medication (Pharmacy To Dose) 1 each PO ONE PRN PRN Reason: Pharmacy to dose Stop: 04/24/18 17:26 Read Ppd Test Site 0 each PO ONE [facility] Stop: 04/08/18 09:01 Senna/Docusate Sodium (Senokot S) 1 tab PO BID [facility] Last Admin: 04/06/18 08:20 Dose: 1 tab Sodium Chloride (Flush - Normal Saline) 10 ml IVF Q12HR [facility] Last Admin: 04/06/18 08:21 Dose: 10 ml Sodium Chloride (Flush - Normal Saline) 10 ml IVF PRN PRN PRN Reason: Saline Flush Last Admin: 04/05/18 05:53 Dose: 10 ml Tramadol HCl (Ultram) 50 mg PO Q6H PRN PRN Reason: Moderate Pain (4-6) Last Admin: 04/06/18 12:34 Dose: 50 mg Warfarin Sodium (Coumadin) 2.5 mg PO 1700 [facility] Last Admin: 04/05/18 17:33 Dose: 2.5 mg
[2018-04-06] MEDS: Acetaminophen 325 MG TAB PO SCH ×2 (15:30→20:36)
[2018-04-06] MEDS: Warfarin Sodium 2.5 MG TAB PO SCH (16:44)
--- NOTE | 2018-04-06 16:54 | PRG ---
DATE OF SERVICE: 04/06/2018 SUBJECTIVE: Patient was seen and examined at bedside and overnight events noted. OBJECTIVE: GENERAL: This is an elderly male, in no apparent distress. VITAL SIGNS: Temperature 97.5, pulse 100, respiratory rate 22, blood pressure 124/55. HEENT: Atraumatic, normocephalic. Oral mucosa is moist NECK: Supple. CARDIOVASCULAR: S1, S2 heard. Rate and rhythm regular. RESPIRATORY: Clear to auscultation. GASTROINTESTINAL: Abdomen is soft. MUSCULOSKELETAL: No tenderness. No edema. DERMATOLOGIC: No skin rash. NEUROLOGIC: Alert and awake and oriented X3. No focal neurologic deficits. Moving all the extremities. PSYCHIATRIC: Mood and affect normal. LABORATORY DATA: Potassium 3.0, BUN is 69, creatinine is 2.7. ASSESSMENT AND PLAN: 1. CHARI on CKD Stage 4 - on hemodialysis. Plan is to continue on dialysis. 2. Hypertension. 3. Edema - will remove fluid with HD as tolerated. 4. Anemia. 5. Hypokalemia, better. PLAN: continue on dialysis. We will have Case Management consult for outpatient placement. Job ID: [id number] [facility]
[2018-04-06 17:58] LABS: HBSAB Concentration 0.94 mIU/mL; HBSAg Index 0.52 S/CO (0-0.99); Hep B Core Total Ab Non-Reactive (NonReactive); Hep B Core Total Index 0.11 S/CO (0-0.79); Hep B Surf AB Non-Reactive (NonReactive); Hep B Surf Ag Non-Reactive S/CO (NonReactive); Hep C IgG Ab Non-Reactive (NonReactive); Hep C Index 0.07 S/CO (0-0.79)
[2018-04-06] MEDS: Famotidine 20 MG TAB PO SCH (20:35)
[2018-04-06] MEDS: Temazepam 15 MG CAP PO PRN (23:52)
[2018-04-07] MEDS: Levothyroxine Sodium 50 MCG TAB PO SCH (05:51)
[2018-04-07 06:28] LABS: Hemoglobin 9.4 g/dL (14.0-18.0); Platelet Count 105 thou/uL (130-400)
[2018-04-07 06:29] LABS: Anion Gap 13 mmol/L (10-20); BUN (Urea Nitrogen) 59 mg/dL (8.4-25.7); Calc. Creatinine Clearance 28 mL/min (70-130); Calcium 8.1 mg/dL (7.8-10.44); Carbon Dioxide 28 mmol/L (23-31); Chloride 98 mmol/L (98-107); Estimated GFR-MDRD 24; Glucose 125 mg/dL (83-110); Potassium 3.2 mmol/L (3.5-5.1); Sodium 136 mmol/L (136-145)
[2018-04-07] MEDS: Carvedilol 3.125 MG TAB PO SCH ×2 (08:30→22:02)
[2018-04-07] MEDS: Hydrocortisone 10 mg Tablet PO SCH ×2 (08:30→22:01)
[2018-04-07] MEDS: busPIRone HCl 10 MG TAB PO SCH ×2 (08:30→22:03)
[2018-04-07] MEDS: Acetaminophen 325 MG TAB PO SCH ×3 (08:30→22:02)
[2018-04-07] MEDS: Senokot S 8.6-50 MG TAB PO SCH ×2 (08:31→22:02)
[2018-04-07] MEDS ORDERED: Potassium Chloride 20 MEQ TAB PO SCH (09:00)
[2018-04-07] MEDS: traMADol HCl 50 MG TAB PO PRN ×2 (11:37→22:03)
--- NOTE | 2018-04-07 13:45 | PDOC.PN ---
- Subjective Encounter Start Date: 04/07/18 Encounter Start Time: 08:30 Patient seen and examined for CHF. SOB improving. No new complaints. No overnight events - Objective Resuscitation Status - Order Detail: 04/05/18 11:36 Resuscitation Status Routine Resuscitation Status: DNAR: NO Resuscitation Discussed with: Per MD notes, "per pt's chart" Additional comments: PC team has discussed with MPOA, nephjose antonio Burris and assisted in completing OOH DNR on previous admissions. MAR Reviewed: Yes Vital Signs & Weight: Vital Signs (12 hours) Temp Pulse Pulse Pulse Pulse Resp BP 04/07/18 11:33 97.6 F 88 16 04/07/18 10:30 86 86 83 103/55 L 04/07/18 08:16 97.5 F L 88 16 04/07/18 04:00 96.3 F L 84 17 BP BP BP Pulse Ox Pulse Ox Pulse Ox Pulse Ox 04/07/18 11:33 122/56 L 97 04/07/18 10:30 112/60 105/55 L 98 98 99 04/07/18 08:16 112/60 97 04/07/18 04:00 134/57 L 97 Weight Admit Weight 233 lb Weight 220 lb I&O: 04/06/18 04/07/18 04/08/18 06:59 06:59 06:59 Intake Total 340 1200 Output Total 3350 1403 Balance -3010 -203 Result Diagrams: 04/07/18 05:30 04/07/18 05:30 EKG Reviewed by me: Yes (Tele paced) Phys Exam - Physical Examination Constitutional: NAD Respiratory: no wheezing Bibasilar rales with rhonchi Cardiovascular: no rub, irregular Gastrointestinal: soft, non-tender, positive bowel sounds Musculoskeletal: edema present Dx/Plan - Plan 1. Acute on chronic systolic and diastolic HF - started on dialysis 2. 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 Chr Afib on anticoag 4. 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 Other issues per previous notes PLAN: Dialysis per Nephrology Cont Coreg 6.25 mg BID - Not on ACEI/ARB/Aldactone due to CKD Cont other meds as below Replace Potassium AM labs Outpatient dialysis setup Review of Systems - Review of Systems Cardiovascular: negative: chest pain, palpitations, orthopnea, paroxysmal nocturnal dyspnea, edema, light headedness, other Gastrointestinal: negative: Nausea, Vomiting, Abdominal Pain, Diarrhea, Constipation, Melena, Hematochezia, Other - Medications/Allergies Allergies/Adverse Reactions: Allergies Allergy/AdvReac Type Severity Reaction Status Date / Time ciprofloxacin HCl Allergy Verified 03/25/18 20:17 [From Cipro] iodine Allergy Verified 03/25/18 20:17 nitrofurantoin Allergy Verified 03/25/18 20:17 macrocrystalline [From Macrodantin] Sulfa (Sulfonamide Allergy Verified 03/25/18 20:17 Antibiotics) Medications: Current Medications Acetaminophen (Tylenol) 650 mg PO Q4H PRN PRN Reason: Headache/Fever/Mild Pain (1-3) Last Admin: 03/29/18 00:47 Dose: 650 mg Acetaminophen (Tylenol) 650 mg PO TID [facility] Last Admin: 04/07/18 08:30 Dose: 650 mg Buspirone HCl (Buspar) 10 mg PO BID [facility] Last Admin: 04/07/18 08:30 Dose: 10 mg Carvedilol (Coreg) 6.25 mg PO BID [facility] Last Admin: 04/07/18 08:30 Dose: 6.25 mg Famotidine (Pepcid) 20 mg PO 2100 [facility] Last Admin: 04/06/18 20:35 Dose: 20 mg Ferrous Sulfate (Ferrous Sulfulte) 300 mg PO DAILY [facility] Last Admin: 04/07/18 08:30 Dose: 300 mg Gabapentin (Neurontin) 100 mg PO Q8HR PRN PRN Reason: Pain Last Admin: 03/28/18 22:41 Dose: 100 mg Hydrocortisone (Cortef) 30 mg PO BID [facility] Last Admin: 04/07/18 08:30 Dose: 30 mg Levothyroxine Sodium (Synthroid) 50 mcg PO 0600 [facility] Last Admin: 04/07/18 05:51 Dose: 50 mcg Miscellaneous Medication (Pharmacy To Dose) 1 each PO ONE PRN PRN Reason: Pharmacy to dose Stop: 04/24/18 17:26 Read Ppd Test Site 0 each PO ONE [facility] Stop: 04/08/18 09:01 Senna/Docusate Sodium (Senokot S) 1 tab PO BID [facility] Last Admin: 04/07/18 08:31 Dose: 1 tab Sodium Chloride (Flush - Normal Saline) 10 ml IVF Q12HR [facility] Last Admin: 04/07/18 08:31 Dose: 10 ml Sodium Chloride (Flush - Normal Saline) 10 ml IVF PRN PRN PRN Reason: Saline Flush Last Admin: 04/05/18 05:53 Dose: 10 ml Temazepam (Restoril) 15 mg PO HS PRN PRN Reason: Insomnia Last Admin: 04/06/18 23:52 Dose: 15 mg Tramadol HCl (Ultram) 50 mg PO Q6H PRN PRN Reason: Moderate Pain (4-6) Last Admin: 04/07/18 11:37 Dose: 50 mg Warfarin Sodium (Coumadin) 2 mg PO 1700 [facility]
[2018-04-07 14:04] VITALS: BMI 31.5
[2018-04-07] MEDS: Warfarin Sodium 2 MG TAB PO SCH (17:28)
[2018-04-07] MEDS: Famotidine 20 MG TAB PO SCH (22:02)
[2018-04-07] MEDS: Temazepam 15 MG CAP PO PRN (22:03)
--- NOTE | 2018-04-08 00:32 | PRG ---
DATE OF SERVICE: 04/07/2018 SUBJECTIVE: Patient was seen and examined at bedside and overnight events noted. Patient denies any shortness of breath or chest pain or palpitation. No history of nausea or vomiting or diarrhea or fever or chills or cramps. OBJECTIVE: GENERAL: This is an elderly male, in no acute distress. VITAL SIGNS: Temperature 97.5. Heart rate 88. Respiratory rate blood pressure 112/60. HEENT: Atraumatic, normocephalic. Oral mucosa is moist NECK: Supple. CARDIOVASCULAR: S1, S2 heard. Rate and rhythm regular. RESPIRATORY: Clear to auscultation. GASTROINTESTINAL: Abdomen is soft. MUSCULOSKELETAL: No tenderness. DERMATOLOGIC: No skin rash. NEUROLOGIC: Alert and awake and oriented X3. No focal neurologic deficits. Moving all the extremities. PSYCHIATRIC: Mood and affect normal. LABORATORY DATA: Potassium is 3.2, BUN is 59, and creatinine is 2.5. ASSESSMENT AND PLAN: 1. Acute kidney injury on chronic kidney disease stage 4, dialysis dependent, fluid overload. We will continue on dialysis. 2. Edema 3. HTN 4. Anemia PLAN: Plan is to continue on dialysis as tolerated. Job ID: [id number] [facility]
[2018-04-08] MEDS: Levothyroxine Sodium 50 MCG TAB PO SCH (05:41)
[2018-04-08 06:12] LABS: Hemoglobin 9.9 g/dL (14.0-18.0); Platelet Count 113 thou/uL (130-400)
[2018-04-08 06:13] LABS: INR-International Normal Ratio 2.8; Prothrombin Time 29.4 SEC (12.0-14.7)
[2018-04-08 06:19] LABS: Anion Gap 12 mmol/L (10-20); BUN (Urea Nitrogen) 56 mg/dL (8.4-25.7); Calc. Creatinine Clearance 27 mL/min (70-130); Calcium 8.8 mg/dL (7.8-10.44); Carbon Dioxide 29 mmol/L (23-31); Chloride 99 mmol/L (98-107); Estimated GFR-MDRD 23; Glucose 125 mg/dL (83-110); Potassium 3.6 mmol/L (3.5-5.1); Sodium 136 mmol/L (136-145)
[2018-04-08] MEDS: Acetaminophen 325 MG TAB PO SCH ×3 (08:03→21:06)
[2018-04-08] MEDS: Hydrocortisone 10 mg Tablet PO SCH ×2 (08:04→21:07)
[2018-04-08] MEDS: Carvedilol 3.125 MG TAB PO SCH ×2 (08:04→21:06)
[2018-04-08] MEDS: Senokot S 8.6-50 MG TAB PO SCH ×2 (08:04→21:08)
[2018-04-08] MEDS: busPIRone HCl 10 MG TAB PO SCH ×2 (08:04→21:06)
[2018-04-08] MEDS ORDERED: READ PPD TEST SITE PO SCH (09:00)
[2018-04-08] MEDS ORDERED: Potassium Chloride 20 MEQ TAB PO SCH (09:15)
[2018-04-08] MEDS: Torsemide 100 MG TAB PO SCH (11:06)
[2018-04-08] MEDS ORDERED: Heparin 1,000 UNITS/ML VIAL ONE (11:11)
--- NOTE | 2018-04-08 14:02 | RAD ---
PORTABLE CHEST: HISTORY: Shortness of breath. COMPARISON: 04/05/2018 FINDINGS: Heart size is enlarged. An internal defibrillator device is present. A left-sided central line is a gain seen, and the catheter tip curved and direct cephalad in the right brachiocephalic vein. Parenc hymal lung changes appear similar, given the differences in technique. IMPRESSION: Essentially stable examination. POS: [facility]
[2018-04-08] MEDS: Albumin 25% 25 GM/100 ML BOT IVPB SCH ×2 (14:43→15:28)
--- NOTE | 2018-04-08 16:40 | PRG ---
DATE OF SERVICE: 04/08/2018 SUBJECTIVE: Patient was seen and examined at bedside and overnight events noted. Patient denies any shortness of breath or chest pain or palpitation. No history of nausea or vomiting or diarrhea or fever or chills or cramps. OBJECTIVE: GENERAL: This is a well-built male, in no apparent distress. VITAL SIGNS: Temperature 97.5, pulse 81, respiratory rate 18, blood pressure 122/56. HEENT: Atraumatic, normocephalic. Oral mucosa is moist NECK: Supple. CARDIOVASCULAR: S1, S2 heard. Rate and rhythm regular. RESPIRATORY: Clear to auscultation. GASTROINTESTINAL: Abdomen is soft. MUSCULOSKELETAL: No tenderness. No edema. DERMATOLOGIC: No skin rash. NEUROLOGIC: Alert and awake and oriented X3. No focal neurologic deficits. Moving all the extremities. PSYCHIATRIC: Mood and affect normal. LABORATORY DATA: Potassium 3.6, BUN is 56, creatinine is 2.6. ASSESSMENT AND PLAN: 1. 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 We will remove fluid with dialysis. 2. Edema. We will remove fluid. 3. Fluid overload. 4. Hypertension, stable. 5. Anemia, stable. PLAN: Plan is to continue on dialysis with fluid removal. Follow with Case Management for outpatient placement. Job ID: [id number] [facility]
--- NOTE | 2018-04-08 16:43 | PDOC.PN ---
- Subjective Encounter Start Date: 04/08/18 Encounter Start Time: 09:15 Patient seen and examined for CHF. Somnolent. Received Restoril last night. No new complaints. No overnight events - Objective Resuscitation Status - Order Detail: 04/05/18 11:36 Resuscitation Status Routine Resuscitation Status: DNAR: NO Resuscitation Discussed with: Per MD notes, "per pt's chart" Additional comments: PC team has discussed with MPOA, nephjose antonio Burris and assisted in completing OOH DNR on previous admissions. MAR Reviewed: Yes Vital Signs & Weight: Vital Signs (12 hours) Temp Pulse Resp BP Pulse Ox 04/08/18 11:10 97.4 F L 81 18 122/56 L 97 04/08/18 07:58 97.5 F L 80 18 110/69 97 Weight Admit Weight 233 lb Weight 220 lb 10.923 oz I&O: 04/07/18 04/08/18 04/09/18 06:59 06:59 06:59 Intake Total 1200 960 Output Total 1403 675 Balance -203 285 Result Diagrams: 04/08/18 05:40 04/08/18 05:40 EKG Reviewed by me: Yes (Tele paced) Phys Exam - Physical Examination Constitutional: NAD Respiratory: no wheezing, no rhonchi Bibasilar rales Cardiovascular: RRR, no rub Gastrointestinal: soft, no distention Musculoskeletal: edema present Dx/Plan - Plan 1. Acute on chronic systolic and diastolic HF - started on dialysis 2. 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 Chr Afib on anticoag 4. 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 Other issues per previous notes PLAN: Cont Dialysis Hold Tramadol due to increased Somnolence CXR AM labs Not on ACEI/ARB/Aldactone due to CKD Cont other meds as below Outpatient dialysis setup DC to [place] after outpatient dialysis setup Review of Systems - Review of Systems Respiratory: negative: Cough, Dry, Shortness of Breath, Hemoptysis, SOB with Excertion, Pleuritic Pain, Sputum, Wheezing Cardiovascular: negative: chest pain, palpitations, orthopnea, paroxysmal nocturnal dyspnea, edema, light headedness, other - Medications/Allergies Allergies/Adverse Reactions: Allergies Allergy/AdvReac Type Severity Reaction Status Date / Time temazepam [From Restoril] Allergy Unknown Verified 04/08/18 16:40 ciprofloxacin HCl Allergy Verified 03/25/18 20:17 [From Cipro] iodine Allergy Verified 03/25/18 20:17 nitrofurantoin Allergy Verified 03/25/18 20:17 macrocrystalline [From Macrodantin] Sulfa (Sulfonamide Allergy Verified 03/25/18 20:17 Antibiotics) Medications: Current Medications Acetaminophen (Tylenol) 650 mg PO Q4H PRN PRN Reason: Headache/Fever/Mild Pain (1-3) Last Admin: 03/29/18 00:47 Dose: 650 mg Acetaminophen (Tylenol) 650 mg PO TID [facility] Last Admin: 04/08/18 16:06 Dose: Not Given Albumin Human (Albumin 25%) 50 gm IVPB NOW [facility] Stop: 04/09/18 16:00 Last Admin: 04/08/18 15:28 Dose: 50 gm Buspirone HCl (Buspar) 10 mg PO BID [facility] Last Admin: 04/08/18 08:04 Dose: 10 mg Carvedilol (Coreg) 6.25 mg PO BID [facility] Last Admin: 04/08/18 08:04 Dose: 6.25 mg Famotidine (Pepcid) 20 mg PO 2100 [facility] Last Admin: 04/07/18 22:02 Dose: 20 mg Ferrous Sulfate (Ferrous Sulfulte) 300 mg PO DAILY [facility] Last Admin: 04/08/18 08:04 Dose: 300 mg Gabapentin (Neurontin) 100 mg PO Q8HR PRN PRN Reason: Pain Last Admin: 03/28/18 22:41 Dose: 100 mg Hydrocortisone (Cortef) 30 mg PO BID [facility] Last Admin: 04/08/18 08:04 Dose: 30 mg Levothyroxine Sodium (Synthroid) 50 mcg PO 0600 [facility] Last Admin: 04/08/18 05:41 Dose: 50 mcg Melatonin (Melatonin) 3 mg PO HS PRN PRN Reason: Insomnia Miscellaneous Medication (Pharmacy To Dose) 1 each PO ONE PRN PRN Reason: Pharmacy to dose Stop: 04/24/18 17:26 Senna/Docusate Sodium (Senokot S) 1 tab PO BID [facility] Last Admin: 04/08/18 08:04 Dose: 1 tab Sodium Chloride (Flush - Normal Saline) 10 ml IVF Q12HR [facility] Last Admin: 04/08/18 08:05 Dose: 10 ml Sodium Chloride (Flush - Normal Saline) 10 ml IVF PRN PRN PRN Reason: Saline Flush Last Admin: 04/05/18 05:53 Dose: 10 ml Torsemide (Demadex) 100 mg PO 0900 [facility] Last Admin: 04/08/18 11:06 Dose: 100 mg Warfarin Sodium (Coumadin) 2 mg PO 1700 [facility] Last Admin: 04/07/18 17:28 Dose: 2 mg
[2018-04-08] MEDS: Warfarin Sodium 2 MG TAB PO SCH (17:26)
[2018-04-08] MEDS: Famotidine 20 MG TAB PO SCH (21:07)
[2018-04-08] MEDS: Melatonin 3 MG TAB PO PRN (21:07)
[2018-04-09] MEDS: Levothyroxine Sodium 50 MCG TAB PO SCH (05:56)
[2018-04-09 06:34] LABS: Prothrombin Time 31.5 SEC (12.0-14.7)
[2018-04-09 06:40] LABS: Anion Gap 13 mmol/L (10-20); BUN (Urea Nitrogen) 57 mg/dL (8.4-25.7); Calc. Creatinine Clearance 26 mL/min (70-130); Calcium 9.2 mg/dL (7.8-10.44); Carbon Dioxide 29 mmol/L (23-31); Chloride 99 mmol/L (98-107); Estimated GFR-MDRD 21; Glucose 126 mg/dL (83-110); Potassium 3.6 mmol/L (3.5-5.1); Sodium 137 mmol/L (136-145)
[2018-04-09] MEDS: Acetaminophen 325 MG TAB PO SCH ×3 (07:30→18:46)
[2018-04-09] MEDS: Hydrocortisone 10 mg Tablet PO SCH ×2 (07:31→19:56)
[2018-04-09] MEDS: Carvedilol 3.125 MG TAB PO SCH ×2 (07:32→19:55)
[2018-04-09] MEDS: busPIRone HCl 10 MG TAB PO SCH ×2 (07:32→19:55)
[2018-04-09] MEDS: Senokot S 8.6-50 MG TAB PO SCH ×2 (07:33→19:55)
[2018-04-09] MEDS: Torsemide 100 MG TAB PO SCH (09:20)
--- NOTE | 2018-04-09 13:18 | PDOC.PN ---
- Subjective Encounter Start Date: 04/09/18 Encounter Start Time: 08:45 Patient seen and examined for Volume overload. No new complaints. No overnight events - Objective Resuscitation Status - Order Detail: 04/05/18 11:36 Resuscitation Status Routine Resuscitation Status: DNAR: NO Resuscitation Discussed with: Per MD notes, "per pt's chart" Additional comments: PC team has discussed with MPOA, nephjose antonio Burris and assisted in completing OOH DNR on previous admissions. MAR Reviewed: Yes Vital Signs & Weight: Vital Signs (12 hours) Temp Pulse Resp BP Pulse Ox 04/09/18 11:21 97.6 F 81 18 105/54 L 100 04/09/18 07:28 97.6 F 84 16 90/55 L 98 04/09/18 04:00 96.9 F L 90 19 114/58 L 99 Weight Admit Weight 233 lb Weight 208 lb 5.389 oz I&O: 04/08/18 04/09/18 04/10/18 06:59 06:59 06:59 Intake Total 960 480 Output Total 675 2875 Balance 285 -2395 Result Diagrams: 04/08/18 05:40 04/09/18 06:05 Phys Exam - Physical Examination Constitutional: NAD Respiratory: no wheezing, no rhonchi rales at bases Cardiovascular: RRR, no rub Gastrointestinal: soft, non-tender, positive bowel sounds Musculoskeletal: edema present Neurological: moves all 4 limbs Dx/Plan - Plan 1. Acute on chronic systolic and diastolic HF - started on dialysis 2. 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 Chr Afib on anticoag 4. 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 Other issues per previous notes PLAN: Cont Dialysis per Nephrology AM labs - BMP/INR Not on ACEI/ARB/Aldactone due to CKD Cont other meds as below Outpatient dialysis setup pending DC to [place] after outpatient dialysis setup Transfer to medical Review of Systems - Review of Systems Respiratory: negative: Cough, Dry, Shortness of Breath, Hemoptysis, SOB with Excertion, Pleuritic Pain, Sputum, Wheezing Cardiovascular: negative: chest pain, palpitations, orthopnea, paroxysmal nocturnal dyspnea, edema, light headedness, other - Medications/Allergies Allergies/Adverse Reactions: Allergies Allergy/AdvReac Type Severity Reaction Status Date / Time temazepam [From Restoril] Allergy Unknown Verified 04/08/18 16:40 ciprofloxacin HCl Allergy Verified 03/25/18 20:17 [From Cipro] iodine Allergy Verified 03/25/18 20:17 nitrofurantoin Allergy Verified 03/25/18 20:17 macrocrystalline [From Macrodantin] Sulfa (Sulfonamide Allergy Verified 03/25/18 20:17 Antibiotics) Medications: Current Medications Acetaminophen (Tylenol) 650 mg PO Q4H PRN PRN Reason: Headache/Fever/Mild Pain (1-3) Last Admin: 03/29/18 00:47 Dose: 650 mg Acetaminophen (Tylenol) 650 mg PO TID [facility] Last Admin: 04/09/18 07:30 Dose: 650 mg Albumin Human (Albumin 25%) 50 gm IVPB NOW [facility] Stop: 04/09/18 16:00 Last Admin: 04/08/18 15:28 Dose: 50 gm Buspirone HCl (Buspar) 10 mg PO BID [facility] Last Admin: 04/09/18 07:32 Dose: 10 mg Carvedilol (Coreg) 6.25 mg PO BID [facility] Last Admin: 04/09/18 07:32 Dose: 6.25 mg Famotidine (Pepcid) 20 mg PO 2100 [facility] Last Admin: 04/08/18 21:07 Dose: 20 mg Ferrous Sulfate (Ferrous Sulfulte) 300 mg PO DAILY [facility] Last Admin: 04/09/18 07:31 Dose: 300 mg Gabapentin (Neurontin) 100 mg PO Q8HR PRN PRN Reason: Pain Last Admin: 03/28/18 22:41 Dose: 100 mg Hydrocortisone (Cortef) 30 mg PO BID [facility] Last Admin: 04/09/18 07:31 Dose: 30 mg Levothyroxine Sodium (Synthroid) 50 mcg PO 0600 [facility] Last Admin: 04/09/18 05:56 Dose: 50 mcg Melatonin (Melatonin) 3 mg PO HS PRN PRN Reason: Insomnia Last Admin: 04/08/18 21:07 Dose: 3 mg Miscellaneous Medication (Pharmacy To Dose) 1 each PO ONE PRN PRN Reason: Pharmacy to dose Stop: 04/24/18 17:26 Senna/Docusate Sodium (Senokot S) 1 tab PO BID [facility] Last Admin: 04/09/18 07:33 Dose: 1 tab Sodium Chloride (Flush - Normal Saline) 10 ml IVF Q12HR [facility] Last Admin: 04/09/18 07:33 Dose: 10 ml Sodium Chloride (Flush - Normal Saline) 10 ml IVF PRN PRN PRN Reason: Saline Flush Last Admin: 04/05/18 05:53 Dose: 10 ml Torsemide (Demadex) 100 mg PO 0900 [facility] Last Admin: 04/09/18 09:20 Dose: Not Given Warfarin Sodium (Coumadin) 2 mg PO 1700 [facility] Last Admin: 04/08/18 17:26 Dose: 2 mg
--- NOTE | 2018-04-09 17:35 | EKG ---
Test Reason : Blood Pressure : / mmHG Vent. Rate : 086 BPM Atrial Rate : 049 BPM P-R Int : 000 ms QRS Dur : 182 ms QT Int : 462 ms P-R-T Axes : 000 084 071 degrees QTc Int : 552 ms Ventricular-paced rhythm with frequent AV dual-paced complexes Abnormal ECG Confirmed by ISABEL KASPER [id number]), multimedia editor KATHRYN ARELLANO ([id number] on 04/09/2018 5:35:35 PM Referred By: DO KASPER Confirmed By:ISABEL KASPER
[2018-04-09] MEDS: Warfarin Sodium 2 MG TAB PO SCH (18:05)
[2018-04-09] MEDS: Famotidine 20 MG TAB PO SCH (19:55)
[2018-04-09] MEDS: Gabapentin 100 MG CAP PO PRN (19:55)
[2018-04-09] MEDS: Melatonin 3 MG TAB PO PRN (19:56)
--- NOTE | 2018-04-09 20:28 | PRG ---
DATE OF SERVICE: 04/09/2018 SUBJECTIVE: Patient was seen and examined at bedside and overnight events noted. Patient denies any shortness of breath or chest pain or palpitation. No history of nausea or vomiting or diarrhea or fever or chills or cramps. OBJECTIVE: GENERAL: This is an elderly white male, in no apparent distress. VITAL SIGNS: Temperature 97.8. Heart rate 82. Respiratory rate 18. Blood pressure 156/79. HEENT: Atraumatic, normocephalic. Oral mucosa is moist NECK: Supple. CARDIOVASCULAR: S1, S2 heard. Rate and rhythm regular. RESPIRATORY: Clear to auscultation. GASTROINTESTINAL: Abdomen is soft. MUSCULOSKELETAL: No tenderness. No edema. DERMATOLOGIC: No skin rash. NEUROLOGIC: Alert and awake and oriented X3. No focal neurologic deficits. Moving all the extremities. PSYCHIATRIC: Mood and affect normal. LABORATORY DATA: Potassium 3.6, BUN is 57, and creatinine is 2.8. ASSESSMENT AND PLAN: 1. CHARI on CKD Stage 4- continue dialysis as tolerated. Follow up with Case Management as outpatient placement. 2. Edema. We will remove fluid on dialysis. 3. Fluid overload. Continue on torsemide. 4. Hypertension. 5. Anemia, stable. 6. Continue torsemide and we will remove fluid dialysis as tolerated. Job ID: [id number] [facility]
[2018-04-10] MEDS: Acetaminophen 325 MG TAB PO PRN (04:43)
[2018-04-10] MEDS: Levothyroxine Sodium 50 MCG TAB PO SCH (04:43)
[2018-04-10 06:01] LABS: Hemoglobin 9.6 g/dL (14.0-18.0); Platelet Count 131 thou/uL (130-400)
[2018-04-10 06:05] LABS: INR-International Normal Ratio 2.9; Prothrombin Time 30.6 SEC (12.0-14.7)
[2018-04-10 06:11] LABS: Anion Gap 15 mmol/L (10-20); BUN (Urea Nitrogen) 58 mg/dL (8.4-25.7); Calc. Creatinine Clearance 25 mL/min (70-130); Carbon Dioxide 27 mmol/L (23-31); Chloride 97 mmol/L (98-107); Estimated GFR-MDRD 21; Glucose 120 mg/dL (83-110); Potassium 3.6 mmol/L (3.5-5.1); Sodium 135 mmol/L (136-145)
[2018-04-10] MEDS ORDERED: Heparin 1,000 UNITS/ML VIAL ONE (11:11)
[2018-04-10] MEDS: Carvedilol 3.125 MG TAB PO SCH ×2 (13:32→20:02)
[2018-04-10] MEDS: Hydrocortisone 10 mg Tablet PO SCH ×2 (13:32→20:02)
[2018-04-10] MEDS: busPIRone HCl 10 MG TAB PO SCH ×2 (13:32→20:02)
[2018-04-10] MEDS: Acetaminophen 325 MG TAB PO SCH ×3 (13:32→20:02)
[2018-04-10] MEDS: Senokot S 8.6-50 MG TAB PO SCH ×2 (13:32→20:04)
[2018-04-10] MEDS: Torsemide 100 MG TAB PO SCH (13:33)
[2018-04-10] MEDS: Warfarin Sodium 2 MG TAB PO SCH (17:15)
--- NOTE | 2018-04-10 19:11 | PDOC.PN ---
- Subjective Encounter Start Date: 04/10/18 Encounter Start Time: 14:30 Patient seen and examined for CHF. SOB improving. Feels better. No new complaints. No overnight events - Objective Resuscitation Status - Order Detail: 04/05/18 11:36 Resuscitation Status Routine Resuscitation Status: DNAR: NO Resuscitation Discussed with: Per MD notes, "per pt's chart" Additional comments: PC team has discussed with MPOA, nephjose antonio Burris and assisted in completing OOH DNR on previous admissions. MAR Reviewed: Yes Vital Signs & Weight: Vital Signs (12 hours) Temp Pulse Resp BP Pulse Ox 04/10/18 08:00 97.4 F L 83 18 112/61 96 Weight Admit Weight 233 lb Weight 216 lb 14.958 oz I&O: 04/09/18 04/10/18 04/11/18 06:59 06:59 06:59 Intake Total 480 570 800 Output Total 2875 775 200 Balance -2395 -205 600 Result Diagrams: 04/10/18 05:45 04/10/18 05:45 Phys Exam - Physical Examination Constitutional: NAD Respiratory: no wheezing, no rhonchi Cardiovascular: RRR, no rub Gastrointestinal: soft, non-tender, positive bowel sounds Musculoskeletal: edema present Neurological: moves all 4 limbs Dx/Plan - Plan 1. Acute on chronic systolic and diastolic HF - started on dialysis 2. 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 Chr Afib on anticoag 4. 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 Other issues per previous notes PLAN: Dialysis per Nephrology Cont current meds as below Not on ACEI/ARB/Aldactone due to CKD DC to [place] after outpatient dialysis setup - Stable for dc AM labs Review of Systems - Review of Systems Constitutional: negative: fever, chills, sweats, weakness, malaise, other Gastrointestinal: negative: Nausea, Vomiting, Abdominal Pain, Diarrhea, Constipation, Melena, Hematochezia, Other - Medications/Allergies Allergies/Adverse Reactions: Allergies Allergy/AdvReac Type Severity Reaction Status Date / Time temazepam [From Restoril] Allergy Unknown Verified 04/08/18 16:40 ciprofloxacin HCl Allergy Verified 03/25/18 20:17 [From Cipro] iodine Allergy Verified 03/25/18 20:17 nitrofurantoin Allergy Verified 03/25/18 20:17 macrocrystalline [From Macrodantin] Sulfa (Sulfonamide Allergy Verified 03/25/18 20:17 Antibiotics) Medications: Current Medications Acetaminophen (Tylenol) 650 mg PO Q4H PRN PRN Reason: Headache/Fever/Mild Pain (1-3) Last Admin: 04/10/18 04:43 Dose: 650 mg Acetaminophen (Tylenol) 650 mg PO TID [facility] Last Admin: 04/10/18 14:09 Dose: 650 mg Buspirone HCl (Buspar) 10 mg PO BID [facility] Last Admin: 04/10/18 13:32 Dose: Not Given Carvedilol (Coreg) 6.25 mg PO BID [facility] Last Admin: 04/10/18 13:32 Dose: Not Given Famotidine (Pepcid) 20 mg PO 2100 [facility] Last Admin: 04/09/18 19:55 Dose: 20 mg Ferrous Sulfate (Ferrous Sulfulte) 300 mg PO DAILY [facility] Last Admin: 04/10/18 13:32 Dose: Not Given Gabapentin (Neurontin) 100 mg PO Q8HR PRN PRN Reason: Pain Last Admin: 04/09/18 19:55 Dose: 100 mg Hydrocortisone (Cortef) 30 mg PO BID [facility] Last Admin: 04/10/18 13:32 Dose: Not Given Levothyroxine Sodium (Synthroid) 50 mcg PO 0600 [facility] Last Admin: 04/10/18 04:43 Dose: 50 mcg Melatonin (Melatonin) 3 mg PO HS PRN PRN Reason: Insomnia Last Admin: 04/09/18 19:56 Dose: 3 mg Miscellaneous Medication (Pharmacy To Dose) 1 each PO ONE PRN PRN Reason: Pharmacy to dose Stop: 04/24/18 17:26 Senna/Docusate Sodium (Senokot S) 1 tab PO BID [facility] Last Admin: 04/10/18 13:32 Dose: Not Given Sodium Chloride (Flush - Normal Saline) 10 ml IVF Q12HR [facility] Last Admin: 04/10/18 13:32 Dose: Not Given Sodium Chloride (Flush - Normal Saline) 10 ml IVF PRN PRN PRN Reason: Saline Flush Last Admin: 04/05/18 05:53 Dose: 10 ml Torsemide (Demadex) 100 mg PO 0900 [facility] Last Admin: 12/02/18 13:33 Dose: Not Given Warfarin Sodium (Coumadin) 2 mg PO 1700 [facility] Last Admin: 04/10/18 17:15 Dose: 2 mg
[2018-04-10] MEDS: Melatonin 3 MG TAB PO PRN (20:04)
[2018-04-10] MEDS: Famotidine 20 MG TAB PO SCH (20:04)
[2018-04-10] MEDS: Gabapentin 100 MG CAP PO PRN (20:04)
[2018-04-11] MEDS: Levothyroxine Sodium 50 MCG TAB PO SCH (04:56)
[2018-04-11 05:28] LABS: Prothrombin Time 31.1 SEC (12.0-14.7)
[2018-04-11 05:51] LABS: Anion Gap 15 mmol/L (10-20); BUN (Urea Nitrogen) 57 mg/dL (8.4-25.7); Calc. Creatinine Clearance 26 mL/min (70-130); Carbon Dioxide 26 mmol/L (23-31); Chloride 98 mmol/L (98-107); Estimated GFR-MDRD 22; Glucose 117 mg/dL (83-110); Potassium 3.5 mmol/L (3.5-5.1); Sodium 135 mmol/L (136-145)
--- NOTE | 2018-04-11 07:49 | PRG ---
DATE OF SERVICE: 04/10/2018 SUBJECTIVE: Patient was seen and examined at bedside and overnight events noted. Patient denies any shortness of breath or chest pain or palpitation. No history of nausea or vomiting or diarrhea or fever or chills or cramps. OBJECTIVE: GENERAL: This is an elderly white male, in no apparent distress, continuing dialysis. VITAL SIGNS: Temperature 97.4. Pulse 83. Respiratory rate 18. Blood pressure 112/61. HEENT: Atraumatic, normocephalic. Oral mucosa is moist NECK: Supple. CARDIOVASCULAR: S1, S2 heard. Rate and rhythm regular. RESPIRATORY: Clear to auscultation. GASTROINTESTINAL: Abdomen is soft. MUSCULOSKELETAL: No tenderness. No edema. DERMATOLOGIC: No skin rash. NEUROLOGIC: Alert and awake and oriented X3. No focal neurologic deficits. Moving all the extremities. PSYCHIATRIC: Mood and affect normal. LABORATORY DATA: Potassium is 3.6, BUN is 58, creatinine is 2.87. Hemoglobin is 9.6. ASSESSMENT AND PLAN: 1. CHARI on CKD Stage 4 - Continue on hemodialysis as tolerated. We will attempt to remove fluid. 2. Edema. We will remove fluid. 3. Fluid overload. 4. Hypertension. 5. Anemia. Plan is to remove fluid with dialysis as tolerated. Continue torsemide. Plan is discussed with Dr. Matos. Job ID: [id number] [facility]
[2018-04-11] MEDS: Carvedilol 3.125 MG TAB PO SCH (08:42)
[2018-04-11] MEDS: Senokot S 8.6-50 MG TAB PO SCH (08:42)
[2018-04-11] MEDS: busPIRone HCl 10 MG TAB PO SCH (08:42)
[2018-04-11] MEDS: Acetaminophen 325 MG TAB PO SCH ×2 (08:42→14:15)
[2018-04-11] MEDS: Torsemide 100 MG TAB PO SCH (08:43)
[2018-04-11] MEDS: Hydrocortisone 10 mg Tablet PO SCH (08:51)
[2018-04-11 16:24] VITALS: BP 145/51; TEMP 97.4
[2018-04-11] MEDS: Warfarin Sodium 2 MG TAB PO SCH (16:53)
--- NOTE | 2018-04-12 19:51 | DIS ---
DATE OF ADMISSION: 03/25/2018 DATE OF DISCHARGE: 04/11/2018 DISCHARGE DISPOSITION: [facility]. FOLLOWUP: Follow up with primary care physician, Dr. Duncan; Cardiology, Dr. Rodríguez; Nephrology, Dr. Mckeon; and General Surgery Dr. Interiano. CODE STATUS: Do not resuscitate. The patient was seen on the day of discharge. Denies any new complaints. No chest pain, shortness of breath, palpitations reported. DISCHARGE MEDICATIONS: Torsemide 100 mg daily, carvedilol 6.25 mg b.i.d., levothyroxine 88 mcg daily, hydrocortisone 30 mg b.i.d., BuSpar 10 mg b.i.d., gabapentin as needed, DuoNeb as needed, ranitidine 150 mg b.i.d., Coumadin as directed, Tylenol as needed, ferrous sulfate daily, Senokot-S b.i.d. BRIEF HOSPITAL COURSE: The patient is an 87-year-old male who was admitted on 03/25/2018 for worsening shortness of breath. Please refer to the history and physical dated 03/25/[address] Cerna for further details. The patient was admitted to the hospital with a diagnosis of congestive heart failure exacerbation. He was seen by Nephrology, Dr. Mckeon. He showed poor response to diuretics due to significant renal insufficiency. He developed acute kidney injury. Later on, hemodialysis was started after patient and the DPOA consented. His dialysis access in the right upper extremity did not work. He had a new dialysis catheter placed by Dr. Interiano. Outpatient dialysis has been set up. His INR was monitored on a daily basis. He has been cleared by consultants for discharge. FINAL DIAGNOSES: 1. Acute on chronic systolic and diastolic heart failure exacerbation, started on hemodialysis. 2. Acute kidney injury on chronic kidney disease stage 4/end-stage renal disease. 3. Chronic anemia secondary to renal insufficiency. 4. Chronic atrial fibrillation, on anticoagulation. 5. Deconditioning. 6. Diabetes mellitus type 2. 7. Hypokalemia. 8. Benign prostatic hypertrophy. 9. Generalized anasarca secondary to volume overload. 10. Hypothyroidism. 11. Elevated troponin secondary to congestive heart failure. 12. Thrombocytopenia. 13. Obesity with a BMI of 34. 14. Chronic adrenal insufficiency. Total time coordinating the discharge of this patient was 38 minutes. DIAGNOSTIC TESTS: 1. Platelet on discharge is 131, lowest platelet was 105. Hemoglobin at discharge was 9.6. INR on the day of discharge is 3.0. Lowest potassium was 2.9, at discharge, 3.5. 2. CT scan of the chest on 03/25/2018 showed cardiomegaly with elevation of the right hemidiaphragm as well as atelectasis. 3. Right upper extremity Doppler was negative for DVT. INPATIENT PROCEDURES: 1. On 03/28/2018, patient underwent left IJ central line placement. 2. On 04/05/2018, patient underwent ultrasound-guided right femoral hemodialysis catheter placement. Job ID: [id number]
--- NOTE | 2018-04-14 11:14 | PRG ---
DATE OF SERVICE: 04/11/2018 SUBJECTIVE: Patient was seen and examined at bedside and overnight events noted. Patient denies any shortness of breath or chest pain or palpitation. No history of nausea or vomiting or diarrhea or fever or chills or cramps. OBJECTIVE: GENERAL: This is an obese male, in no apparent distress. VITAL SIGNS: Temperature 98.1. Heart rate 84. Respiratory rate 20. Blood pressure 97/55. HEENT: Atraumatic, normocephalic. Oral mucosa is moist NECK: Supple. CARDIOVASCULAR: S1, S2 heard. Rate and rhythm regular. RESPIRATORY: Clear to auscultation. GASTROINTESTINAL: Abdomen is soft. MUSCULOSKELETAL: No tenderness. No edema. DERMATOLOGIC: No skin rash. NEUROLOGIC: Alert and awake and oriented X3. No focal neurologic deficits. Moving all the extremities. PSYCHIATRIC: Mood and affect normal. LABORATORY DATA: Potassium is 3.5, BUN is 57, and creatinine 2.7. ASSESSMENT AND PLAN: 1. End-stage renal disease. Continue dialysis as tolerated. 2. Edema. Remove fluid. 3. Fluid overload, remove fluid. 4. Hypertension. 5. Anemia. Plan is to continue dialysis as tolerated. Job ID: [id number]
== END 2018-04-11 17:26 | DRG 291 ==
LOC: ERS 12:52 → 2NO 19:22 → T4-B 04-09 14:17
PROVIDERS: ADMIT Internal Medicine; ATTEND Internal Medicine
PROC: 05HN33Z Insertion of Infusion Device into Left Internal Jugular Vein, Percutaneous Approach (ICD-10-PCS; 2018-03-29)
PROC: 05JY3ZZ Inspection of Upper Vein, Percutaneous Approach (ICD-10-PCS; 2018-03-29)
PROC: 0JHL3XZ Insertion of Tunneled Vascular Access Device into Right Upper Leg Subcutaneous Tissue and Fascia, Percutaneous Approach (ICD-10-PCS; principal; 2018-04-05)
PROC: 06HM33Z Insertion of Infusion Device into Right Femoral Vein, Percutaneous Approach (ICD-10-PCS; 2018-04-05)
PROC: 5A1D70Z Performance of Urinary Filtration, Intermittent, Less than 6 Hours Per Day (ICD-10-PCS; 2018-04-05)
PROC: 5A1D70Z Performance of Urinary Filtration, Intermittent, Less than 6 Hours Per Day (ICD-10-PCS; 2018-04-06)
PROC: 5A1D70Z Performance of Urinary Filtration, Intermittent, Less than 6 Hours Per Day (ICD-10-PCS; 2018-04-08)
PROC: 5A1D70Z Performance of Urinary Filtration, Intermittent, Less than 6 Hours Per Day (ICD-10-PCS; 2018-04-10)
DX: I13.2 Hypertensive heart and chronic kidney disease with heart failure and with stage 5 chronic kidney disease, or end stage renal disease (principal); I50.43 Acute on chronic combined systolic (congestive) and diastolic (congestive) heart failure; N18.6 End stage renal disease; N17.9 Acute kidney failure, unspecified; E87.2 Acidosis; E87.1 Hypo-osmolality and hyponatremia; E27.40 Unspecified adrenocortical insufficiency; E23.0 Hypopituitarism; E11.22 Type 2 diabetes mellitus with diabetic chronic kidney disease; E11.51 Type 2 diabetes mellitus with diabetic peripheral angiopathy without gangrene; I48.2 Chronic atrial fibrillation; D63.1 Anemia in chronic kidney disease; E03.9 Hypothyroidism, unspecified; Z66 Do not resuscitate; N40.0 Benign prostatic hyperplasia without lower urinary tract symptoms; E66.9 Obesity, unspecified; Z68.34 Body mass index [BMI] 34.0-34.9, adult; E87.6 Hypokalemia; D69.6 Thrombocytopenia, unspecified; Z85.46 Personal history of malignant neoplasm of prostate; Z87.891 Personal history of nicotine dependence; Z88.1 Allergy status to other antibiotic agents; Z88.2 Allergy status to sulfonamides; Z88.8 Allergy status to other drugs, medicaments and biological substances; Z79.01 Long term (current) use of anticoagulants; Z79.899 Other long term (current) drug therapy
CPT/HCPCS: 36415; 71045; 71250; 80048; 80053; 80069; 82553; 82728; 83540; 83550; 83605; 83735; 83880; 84443; 84484; 85014; 85018; 85025; 85049; 85610; 86580; 86704; 86706; 86803; 87340; 90935; 93005; 93798; 94760; 96374; C1752; C1769; G0257; G8978-GP-CL; G8978-GP-CN; G8979-GP-CJ; G8979-GP-CL; G8996-GN-CK; G8997-GN-CJ; G8997-GN-CK; J0670; J1644; J1940; J2001; J2704; J3480; J7050; P9047

== ENCOUNTER 2018-05-02 23:20 | Inpatient (IN) | payer MEDICARE, OTHER ==
--- NOTE | 2018-05-02 23:49 | RAD ---
SINGLE VIEW OF THE CHEST: Comparison: 04-08-18 History: Pain all over. Cough. FINDINGS: Single view of the chest shows an enlarged but stable cardiomediastinal silhouette. The pacemaker is unchanged in position. There is no evidence of consolidation, mass, or pleural effusion. IMPRESSION: No evidence of acute cardiopulmonary disease. POS: [facility]
--- NOTE | 2018-05-03 00:01 | CT ---
CT BRAIN WITHOUT CONTRAST: Comparison: 02-08-18 History: Difficulty getting out of bed. Altered mental status. Technique: Multiple contiguous axial images were obtained in a CT of the brain without contrast. FINDINGS: Cerebral atrophy is seen. Scattered hypodensities in the subcortical and periventricular white matter are likely secondary to small vessel ischemic disease. No large confluent infarction is seen. There is no evidence of hydrocephalus, intracranial hemorrhage or extraaxial fluid collections. The calvari um and overlying soft tissues are unremarkable. The visualized paranasal sinuses are well aerated. Fl uid is seen within some of the left mastoid air cells. This is unchanged compared to the prior exam. IMPRESSION: No evidence of acute intracranial abnormality. POS: [facility]
[2018-05-03 00:56] LABS: #Basophils 0.1 thou/uL (0.0-0.2); #Lymphocytes 1.3 thou/uL (1.20-3.40); #Monocytes 0.8 thou/uL (0.11-0.59); #Neutrophils 11.6 thou/uL (1.40-6.50); %Basophils 0.8 % (0.0-1.0); %Eosinophils 0.3 % (0.0-10.0); %Lymphocytes 9.3 % (21.0-51.0); %Monocytes 5.6 % (0.0-10.0); Hemoglobin 9.9 g/dL (14.0-18.0); Mean Corpuscular HGB CONC 31.6 g/dL (32.0-36.0); Mean Corpuscular Hemoglobin 29.6 pg (27.0-31.0); Mean Corpuscular Volume 93.8 fL (78.0-98.0); Mean Platelet Volume 8.3 fL (7.4-10.4); Platelet Count 175 thou/uL (130-400); RBC Distribution Width 15.6 % (11.5-14.5); Red Blood Cell (RBC) Count 3.33 mill/uL (4.70-6.10); White Blood Cell (WBC) Count 13.9 thou/uL (4.8-10.8)
[2018-05-03 01:13] LABS: ALT (SGPT) 9 U/L (8-55); AST (SGOT) 12 U/L (5-34); Albumin 3.2 g/dL (3.4-4.8); Alkaline Phosphatase 139 U/L (40-150); Anion Gap 16 mmol/L (10-20); BUN (Urea Nitrogen) 13 mg/dL (8.4-25.7); Bilirubin, Total 0.8 mg/dL (0.2-1.2); Calc. Creatinine Clearance 0 mL/min (70-130); Calcium 8.6 mg/dL (7.8-10.44); Carbon Dioxide 27 mmol/L (23-31); Chloride 98 mmol/L (98-107); Estimated GFR-MDRD 27; Globulin 2.8 g/dL (2.4-3.5); Glucose 151 mg/dL (83-110); Potassium 3.7 mmol/L (3.5-5.1); Sodium 137 mmol/L (136-145)
[2018-05-03 01:34] LABS: CKMB 1.7 ng/mL (0-6.6)
[2018-05-03 02:31] LABS: INR-International Normal Ratio 3.5; Prothrombin Time 35.1 SEC (12.0-14.7)
[2018-05-03 02:32] LABS: PTT 63.1 SEC (22.9-36.1)
--- NOTE | 2018-05-03 04:48 | HP ---
CHIEF COMPLAINT: Chest pain. HISTORY OF PRESENT ILLNESS: The patient is an 87-year-old male who lives in [facility]. He has a history of chronic kidney disease, has been on short-term dialysis. He also has a history of hypertension who came in today with complaints of some chest pain. The story is a little unclear. I was told that he had some chest pain in [facility] and that is why he was sent to the hospital for further evaluation. Patient really is unable to tell me what has been going on. He states that everything hurts. His chest also has been hurting. He denies any shortness of breath, any nausea, vomiting, diarrhea, or any abdominal pain. PAST MEDICAL HISTORY: 1. Patient has extensive history of panhypopituitarism. 2. History of urinary tract infections. 3. History of pulmonary emboli. 4. History of chronic AFib. He is on Coumadin. 5. History of hypothyroidism. 6. History of hypertension. 7. He has a history of systolic and diastolic heart failure. 8. He has a history of prostate cancer. 9. He has had a history of chronic kidney disease and he has had intermittent dialysis. PAST SURGICAL HISTORY: 1. He has had an AICD placement. He also has had a transsphenoidal pituitary resection. 2. He has had a colonoscopy. 3. He has had a penile implant. 4. He has had a radical prostatectomy. 5. He has also had artificial urethral sphincter, which Urology has deactivated. MEDICATIONS: He takes: 1. BuSpar 10 mg t.i.d. 2. Carvedilol 6.25 b.i.d. 3. Gabapentin 100 mg t.i.d. 4. Solu-Cortef 10 mg b.i.d. 5. Synthroid 100 mcg daily. 6. Midodrine 10 mg daily. 7. Ranitidine 150 mg b.i.d. 8. Coumadin 2.5 mg daily. 9. Tylenol No. 3 q.6 hours p.r.n. ALLERGIES: HE IS ALLERGIC TO CIPROFLOXACIN, IODINE, MACROBID, AND SULFA. FAMILY HISTORY: No history of heart disease or cancer. SOCIAL HISTORY: He lives in the [facility]. He is a DNR per documentation. No alcohol use. He is a former smoker, quit in 2017. No drug use. REVIEW OF SYSTEMS: All negative, except for the ones mentioned above in the HPI. PHYSICAL EXAMINATION: VITAL SIGNS: Vital signs are as of the following. His temperature is 99.1, oxygen 99, 20, 114/49, and 95 pulse. GENERAL: He is awake, alert, and oriented x2. Does not appear in any distress. CV: S1, S2 present. No murmurs, rubs, or gallops. He does have reproducible pain upon palpation of his chest wall area bilaterally. LUNGS: Clear to auscultation. No rhonchi or wheezes noted. ABDOMEN: Soft and nontender. Bowel sounds present x2. No hepatomegaly or splenomegaly noted. EXTREMITIES: He has some 1+ lower extremity edema. Pedal pulses are present x2. NEUROVASCULAR: No focal deficits. He is able to move all 4 extremities. Sensation is also intact. SKIN: He has some significant ecchymotic areas all around his body, most likely from being on Coumadin. LABORATORY RESULTS: As of the following; WBCs of 13.9, hemoglobin of 9.9, hematocrit of 31.3, and his platelets are 175. I do not see any bands. Chemistry; sodium of 137, potassium 3.7, BUN of 13, and creatinine of 2.29. His glucose is 151. His troponin is 0.052. His urine is still pending. His chest x-ray, no evidence of cardiopulmonary disease. CT brain was essentially negative. ASSESSMENT AND PLAN: Patient is an 87-year-old male who presents to the hospital with complaints of chest pain. 1. Atypical chest pain. Patient's pain is reproducible on palpation. He did have an echocardiogram in 2018, which indicated ejection fraction of 50% to 55%. It is really hard to say if this is something else going on. His troponin elevation, he has had this in the past. They are nothing more than his baseline. We will at this time get an echocardiogram to make sure there is nothing in terms of pericarditis given his history of renal disease. However, I do not think it is. Also, we will trend his enzymes and continue to monitor. 2. History of chronic kidney disease. Currently, his creatinine is at baseline. We will continue to monitor. 3. History of diastolic heart failure. Right now, he is compensated. He does not appear to be volume overloaded. His sats are good and his lungs are clear. We will continue to monitor. 4. History of panhypopituitarism. We will continue his medications which is Solu-Cortef. We will continue that. 5. Mild leukocytosis, unclear etiology. I will continue to monitor. We will check a urine on this patient to make sure there is no UTI that is going on. 6. Deep venous thrombosis prophylaxis. Patient is already on warfarin, so we will continue the warfarin. Job ID: [id number]
[2018-05-03] MEDS ORDERED: Prevnar 13-Val Conj/PF 0.5 ML SYRINGE IM ONE (05:15)
[2018-05-03 05:20] LABS: #Eosinphils 0.1 thou/uL (0.0-0.7); #Lymphocytes 1.7 thou/uL (1.20-3.40); #Monocytes 0.6 thou/uL (0.11-0.59); #Neutrophils 9.3 thou/uL (1.40-6.50); %Basophils 0.2 % (0.0-1.0); %Eosinophils 0.9 % (0.0-10.0); %Lymphocytes 14.1 % (21.0-51.0); %Monocytes 5.2 % (0.0-10.0); %Neutrophils 79.6 % (42.0-75.0); Hemoglobin 9.7 g/dL (14.0-18.0); Mean Corpuscular HGB CONC 32.7 g/dL (32.0-36.0); Mean Corpuscular Hemoglobin 30.5 pg (27.0-31.0); Mean Corpuscular Volume 93.4 fL (78.0-98.0); Mean Platelet Volume 8.8 fL (7.4-10.4); Platelet Count 165 thou/uL (130-400); RBC Distribution Width 15.7 % (11.5-14.5); Red Blood Cell (RBC) Count 3.19 mill/uL (4.70-6.10); White Blood Cell (WBC) Count 11.7 thou/uL (4.8-10.8)
[2018-05-03 05:42] LABS: Anion Gap 12 mmol/L (10-20); BUN (Urea Nitrogen) 14 mg/dL (8.4-25.7); Calc. Creatinine Clearance 32 mL/min (70-130); Calcium 8.3 mg/dL (7.8-10.44); Carbon Dioxide 26 mmol/L (23-31); Chloride 100 mmol/L (98-107); Estimated GFR-MDRD 27; Glucose 107 mg/dL (83-110); Potassium 3.7 mmol/L (3.5-5.1); Sodium 134 mmol/L (136-145)
[2018-05-03 05:48] LABS: Troponin I 0.054 ng/mL (< 0.028)
[2018-05-03 06:07] VITALS: BMI 30.4
[2018-05-03] MEDS: Levothyroxine Sodium 88 MCG TAB PO SCH (07:35)
[2018-05-03 08:18] LABS: Troponin I 0.057 ng/mL (< 0.028)
[2018-05-03] MEDS: Carvedilol 6.25 MG TAB PO SCH ×2 (09:12→18:51)
[2018-05-03 10:54] LABS: Hemoglobin 9.8 g/dL (14.0-18.0); Platelet Count 159 thou/uL (130-400)
[2018-05-03] MEDS: Hydrocortisone 10 mg Tablet PO SCH ×2 (12:16→20:45)
[2018-05-03] MEDS: busPIRone HCl 10 MG TAB PO SCH ×2 (12:16→20:46)
[2018-05-03] MEDS: Torsemide 100 MG TAB PO SCH (12:17)
[2018-05-03] MEDS: Senokot S 8.6-50 MG TAB PO SCH ×2 (12:17→21:00)
--- NOTE | 2018-05-03 15:55 | PDOC.PN ---
- Subjective Encounter Start Date: 05/03/18 Encounter Start Time: 15:53 Patient lying in bed, reports reproducible pain. Denies fall or trauma. Denies shortness of breath or abdominal pain. - Objective Resuscitation Status - Order Detail: 05/03/18 03:02 Resuscitation Status Routine Resuscitation Status: DNAR: NO Resuscitation Discussed with: per paper work MAR Reviewed: Yes Vital Signs & Weight: Vital Signs (12 hours) Temp Pulse Resp BP BP Pulse Ox 05/03/18 12:30 99.2 F 95 19 116/42 L 100 05/03/18 09:12 94/53 L 05/03/18 08:58 99.2 F 93 19 94/53 L 98 05/03/18 04:30 98.0 F 94 20 140/70 100 05/03/18 04:00 98.0 F 94 20 140/71 100 Weight Weight 200 lb 1.6 oz I&O: 05/02/18 05/03/18 05/04/18 06:59 06:59 06:59 Intake Total 200 Balance 200 Result Diagrams: 05/03/18 10:44 05/03/18 04:37 Radiology Reviewed by me: Yes EKG Reviewed by me: Yes Phys Exam - Physical Examination Constitutional: NAD HEENT: PERRLA, moist MMs, oral pharynx no lesions Neck: no nodes, no JVD, full ROM Respiratory: no wheezing, no rales, no rhonchi Cardiovascular: RRR, no significant murmur, no rub Gastrointestinal: soft, non-tender, positive bowel sounds Musculoskeletal: pulses present 1+ edema BLE Neurological: non-focal, normal sensation, moves all 4 limbs Lymphatic: no nodes Psychiatric: normal affect Deviation from normal: A&Ox2 Skin: no rash, normal turgor, cap refill <2 seconds Deviation from normal: Diffuse echymoses Dx/Plan (1) Leukocytosis Code(s): D72.829 - ELEVATED WHITE BLOOD CELL COUNT, UNSPECIFIED Status: Acute (2) Atypical chest pain Code(s): R07.89 - OTHER CHEST PAIN Status: Acute (3) ESRD (end stage renal disease) Code(s): N18.6 - END STAGE RENAL DISEASE Status: Acute (4) Physical deconditioning Code(s): R53.81 - OTHER MALAISE Status: Chronic Comment: will benefit from rehab - Plan cont current plan of care, PT/OT * Continue current management, await echo * Await UA to rule out UTI, patient with leukocytosis this could be from solu- cortef and/or infectious etiology and/or reactive * PT/OT * Monitor vitals, labs including PT/INR * Continue home medications including coumadin * Disposition likely back to [facility] when ready
[2018-05-03] MEDS: Gabapentin 100 MG CAP PO PRN (16:35)
[2018-05-03] MEDS ORDERED: Warfarin Sodium 5 MG TAB PO SCH (17:00)
[2018-05-03] MEDS: Sodium Chloride 0.9% 500 ML IVPB SCH ×2 (18:00→22:54)
[2018-05-03] MEDS: Albumin 25% 25 GM/100 ML BOT IVPB SCH (20:45)
[2018-05-03] MEDS ORDERED: Sodium Chloride 0.9% 250 ML 250 ML IVPB SCH (22:30)
[2018-05-04] MEDS: Acetaminophen/Codeine 30-300mg Tablet PO PRN (00:24)
[2018-05-04] MEDS ORDERED: DOPamine 400 MG/D5W 250 ML 250 ML IVPB PRN (00:54)
[2018-05-04] MEDS ORDERED: Vancomycin HCl 1.75 GM in Sodium Chloride 0.9% 500 ML IVPB SCH (01:30)
[2018-05-04] MEDS ORDERED: Heparin 10,000 UNITS/ 10 ML VIAL CATH PRN (04:06)
[2018-05-04] MEDS: Albumin 25% 25 GM/100 ML BOT IVPB SCH ×2 (04:22→08:42)
[2018-05-04] MEDS: Piperacillin/Tazobactam 2.25 GM in Sodium Chloride 0.9% 100 ML IVPB SCH ×3 (05:44→17:35)
[2018-05-04] MEDS: Midodrine HCl 5 MG TAB PO SCH (06:24)
[2018-05-04] MEDS: Levothyroxine Sodium 88 MCG TAB PO SCH (06:24)
[2018-05-04 09:30] LABS: Prothrombin Time 45.6 SEC (12.0-14.7)
[2018-05-04 09:40] LABS: Anion Gap 15 mmol/L (10-20); BUN (Urea Nitrogen) 24 mg/dL (8.4-25.7); Calc. Creatinine Clearance 21 mL/min (70-130); Calcium 8.1 mg/dL (7.8-10.44); Carbon Dioxide 22 mmol/L (23-31); Chloride 102 mmol/L (98-107); Estimated GFR-MDRD 18; Glucose 129 mg/dL (83-110); Potassium 3.9 mmol/L (3.5-5.1); Sodium 135 mmol/L (136-145)
[2018-05-04 09:41] LABS: INR-International Normal Ratio 4.9
[2018-05-04] MEDS: Carvedilol 6.25 MG TAB PO SCH ×2 (12:42→16:05)
[2018-05-04] MEDS: Senokot S 8.6-50 MG TAB PO SCH ×2 (12:43→22:45)
[2018-05-04] MEDS: Hydrocortisone 10 mg Tablet PO SCH ×2 (12:43→22:43)
[2018-05-04] MEDS: busPIRone HCl 10 MG TAB PO SCH ×2 (12:43→22:43)
[2018-05-04] MEDS: Torsemide 100 MG TAB PO SCH (12:44)
[2018-05-04] MEDS ORDERED: Warfarin Sodium 5 MG TAB PO SCH (13:25)
[2018-05-04 14:28] LABS: #Eosinphils 0.1 thou/uL (0.0-0.7); #Lymphocytes 1.2 thou/uL (1.20-3.40); #Monocytes 0.5 thou/uL (0.11-0.59); %Basophils 0.2 % (0.0-1.0); %Lymphocytes 15.8 % (21.0-51.0); %Monocytes 6.7 % (0.0-10.0); %Neutrophils 76.3 % (42.0-75.0); Mean Corpuscular HGB CONC 31.3 g/dL (32.0-36.0); Mean Corpuscular Hemoglobin 29.1 pg (27.0-31.0); Mean Corpuscular Volume 93.1 fL (78.0-98.0); Mean Platelet Volume 7.7 fL (7.4-10.4); Platelet Count 127 thou/uL (130-400); RBC Distribution Width 15.5 % (11.5-14.5); Red Blood Cell (RBC) Count 2.74 mill/uL (4.70-6.10); White Blood Cell (WBC) Count 7.9 thou/uL (4.8-10.8)
--- NOTE | 2018-05-04 16:19 | PDOC.PN ---
- Subjective Encounter Start Date: 05/04/18 Encounter Start Time: 14:18 -: non-verbal Subjective: Patient lethargic and responsive to physical stimulation. -: Not answering questions. Per nurse AMS intermittently since admission. -: Further deterioration from last admission. Patient asking for water, but then falling asleep and holding liquids in his mouth. Not swallowing pills. Speech therapy unable to complete assessment. Patient has been referred to palliative care in the past for HF. Nephew is POA. Aware of consultation and has been contemplating hospice in the past. Patient is DNR. Echo today, EF of 30%. (Compared to 50% previously). INR 4.9 today. Coumadin was to be held yesterday, but it appears it was given ( INR yesterday 3.5). - Objective Resuscitation Status - Order Detail: 05/03/18 03:02 Resuscitation Status Routine Resuscitation Status: DNAR: NO Resuscitation Discussed with: per paper work Vital Signs & Weight: Vital Signs (12 hours) Temp Pulse Resp BP Pulse Ox 05/04/18 12:42 109/52 L 05/04/18 12:15 99.2 F 99 20 109/52 L 96 05/04/18 09:38 97 20 95/55 L 05/04/18 07:19 99.9 F H 98 19 92/49 L 95 Weight Weight 207 lb 8 oz I&O: 05/03/18 05/04/18 05/05/18 06:59 06:59 06:59 Intake Total 200 2420 100 Output Total 10 Balance 200 2410 100 Result Diagrams: 05/04/18 14:22 05/04/18 09:06 Phys Exam - Physical Examination Patient lethargic, not verbally responsive. Opens eyes but falls asleep. HEENT: PERRLA Neck: no nodes, full ROM Respiratory: no wheezing Cardiovascular: RRR Gastrointestinal: soft, no distention Musculoskeletal: pulses present Bilateral trace edema present Dx/Plan (1) Dehydration Code(s): E86.0 - DEHYDRATION Status: Acute Comment: Improved, continue IVF' s another 24h then d/c (2) ESRD (end stage renal disease) Code(s): N18.6 - END STAGE RENAL DISEASE Status: Chronic (3) Leg edema Code(s): R60.0 - LOCALIZED EDEMA Status: Acute Comment: continue diureses. Cardio and nephro workup and management in progress. (4) CKD (chronic kidney disease) stage 4, GFR 15-29 ml/min Code(s): N18.4 - CHRONIC KIDNEY DISEASE, STAGE 4 (SEVERE) Status: Chronic (5) Combined systolic and diastolic congestive heart failure Code(s): I50.40 - UNSP COMBINED SYSTOLIC AND DIASTOLIC (CONGESTIVE) HRT FAIL Status: Chronic Qualifiers: Heart failure chronicity: acute on chronic Qualified Code(s): I50.43 - Acute on chronic combined systolic (congestive) and diastolic (congestive) heart failure Comment: continue current management. (6) ESRD (end stage renal disease) on dialysis Code(s): N18.6 - END STAGE RENAL DISEASE; Z99.2 - DEPENDENCE ON RENAL DIALYSIS Status: Chronic - Plan cont current plan of care Palliative care consult requested -: NPO as not able to eat/drink or take pills. -: Under Dr. Og. -: CBC 13.9 on admission. Unable to obtain UA. -: Hold coumadin. Monitor coags. * .
--- NOTE | 2018-05-04 17:00 | CON ---
DATE OF CONSULTATION: REASON FOR CONSULTATION: End-stage renal disease, for hemodialysis. HISTORY OF PRESENT ILLNESS: This is a very pleasant 87-year-old gentleman, presented to the hospital yesterday for chest pain. The patient is on dialysis Wednesday, Wednesday, and Wednesday, but has an issue with noncompliance and cannot give consent. At this time, the patient is nonverbal and resting and not waking up with sternal rub. PAST MEDICAL HISTORY: Significant for panhypopituitarism; UTI; atrial fibrillation; end-stage renal disease; diastolic heart failure; massive edema, requiring dialysis; and hypothyroidism. PAST SURGICAL HISTORY: Multiple catheter surgeries, ERCP, colonoscopy, penile implant, prostatectomy, and urethral sphincter. MEDICATIONS: Home medication list reviewed. Hospital medication list reviewed. ALLERGIES: REVIEWED. FAMILY HISTORY: Negative for ESRD. SOCIAL HISTORY: No alcohol or drug use. He lives in a [facility]. REVIEW OF SYSTEMS: Unobtainable. PHYSICAL EXAMINATION: GENERAL: The patient is resting. VITAL SIGNS: Afebrile, pulse 97, breathing 16, blood pressure 92/49. GENERAL APPEARANCE AND MENTAL STATUS: Fair. HEAD/NECK: Normocephalic. Atraumatic. EYES: EOMI. No deformity. EARS: Clear. No ulcers. NOSE: Intact. No lesions. MOUTH: Clear. No discharge. THROAT: Clear. No exudate. LUNGS: Clear. No crackles. CARDIAC: S1, S2. No rub. ABDOMEN: Benign. Bowel sounds positive. GENITALIA/RECTUM: Shabazz absent. BACK/EXTREMITIES: Edema 0+. NEUROLOGIC: The patient is resting. LABORATORY DATA: Hemoglobin 9.8. Creatinine 3.2. ASSESSMENT AND PLAN: 1. Chronic kidney disease, stage 6. 2. The patient is nonconsentable for dialysis, and with low blood pressure, we will not do dialysis still family members are available. I have called multiple numbers with no success. 3. Hypotension, due to heart failure. 4. Anemia, stable. 5. Medication based on GFR, appropriate. 6. Prognosis is extremely poor. Job ID: [id number]
[2018-05-05] MEDS: Piperacillin/Tazobactam 2.25 GM in Sodium Chloride 0.9% 100 ML IVPB SCH ×3 (00:29→11:34)
[2018-05-05] MEDS ORDERED: Vancomycin HCl 1 GM in Premix Bag 1 BAG IVPB SCH (01:00)
[2018-05-05 05:37] LABS: #Lymphocytes 0.7 thou/uL (1.20-3.40); #Monocytes 0.3 thou/uL (0.11-0.59); #Neutrophils 7.1 thou/uL (1.40-6.50); %Eosinophils 0.5 % (0.0-10.0); %Lymphocytes 8.9 % (21.0-51.0); %Neutrophils 86.6 % (42.0-75.0); Hemoglobin 8.6 g/dL (14.0-18.0); Mean Corpuscular HGB CONC 31.5 g/dL (32.0-36.0); Mean Corpuscular Hemoglobin 29.7 pg (27.0-31.0); Mean Corpuscular Volume 94.3 fL (78.0-98.0); Platelet Count 140 thou/uL (130-400); RBC Distribution Width 15.6 % (11.5-14.5); Red Blood Cell (RBC) Count 2.88 mill/uL (4.70-6.10); White Blood Cell (WBC) Count 8.2 thou/uL (4.8-10.8)
[2018-05-05] MEDS: Levothyroxine Sodium 88 MCG TAB PO SCH (06:03)
[2018-05-05 06:09] LABS: ALT (SGPT) 7 U/L (8-55); AST (SGOT) 11 U/L (5-34); Alkaline Phosphatase 165 U/L (40-150); Anion Gap 18 mmol/L (10-20); BUN (Urea Nitrogen) 28 mg/dL (8.4-25.7); Calc. Creatinine Clearance 19 mL/min (70-130); Calcium 8.5 mg/dL (7.8-10.44); Carbon Dioxide 20 mmol/L (23-31); Chloride 101 mmol/L (98-107); Estimated GFR-MDRD 17; Globulin 2.5 g/dL (2.4-3.5); Glucose 121 mg/dL (83-110); Potassium 4.2 mmol/L (3.5-5.1); Protein, Total 5.5 g/dL (5.8-8.1); Sodium 135 mmol/L (136-145)
[2018-05-05] MEDS: Carvedilol 6.25 MG TAB PO SCH ×2 (09:57→18:01)
[2018-05-05] MEDS: busPIRone HCl 10 MG TAB PO SCH ×2 (09:57→21:30)
[2018-05-05] MEDS: Midodrine HCl 5 MG TAB PO SCH (09:57)
[2018-05-05] MEDS: Hydrocortisone 10 mg Tablet PO SCH ×2 (09:57→21:29)
[2018-05-05] MEDS: Senokot S 8.6-50 MG TAB PO SCH ×2 (09:57→21:31)
[2018-05-05] MEDS: Torsemide 100 MG TAB PO SCH (10:01)
--- NOTE | 2018-05-05 11:53 | PRG ---
DATE OF SERVICE: 05/05/2018 SUBJECTIVE: An 87-year-old gentleman, being seen for end-stage renal disease. The patient denied any nausea, vomiting. OBJECTIVE: CONSTITUTIONAL: The patient is awake and alert. VITAL SIGNS: Afebrile, pulse 100, breathing 16, blood pressure . GENERAL APPEARANCE AND MENTAL STATUS: Fair. HEAD/NECK: Normocephalic and atraumatic. EYES: EOMI. No deformity. EARS: Clear. No ulcers. NOSE: Intact. No lesions. MOUTH: Clear. No discharge. THROAT: Clear. No exudate. LUNGS: Clear. No crackles. CARDIAC: S1 and S2. No rub. ABDOMEN: Benign. Bowel sounds positive. GENITALIA/RECTUM: Shabazz absent. BACK/EXTREMITIES: Edema 0+. NEUROLOGICAL: Alert and motor intact. LABORATORY DATA: Hemoglobin 8.6. Creatinine 3.4. ASSESSMENT AND PLAN: 1. Chronic kidney disease stage 6. This patient declined dialysis. 2. Hypertension, stable. 3. Anemia, stable. 4. We will evaluate in the morning. Job ID: [id number]
[2018-05-05 12:04] LABS: Hemoglobin 8.8 g/dL (14.0-18.0); Platelet Count 135 thou/uL (130-400)
[2018-05-05 12:06] LABS: Prothrombin Time 53.6 SEC (12.0-14.7)
[2018-05-05] MEDS ORDERED: Phytonadione 10 MG/ML AMP SLOW IVP SCH (12:45)
[2018-05-05] MEDS ORDERED: Phytonadione 10 MG in Sodium Chloride 0.9% 50 ML IVPB SCH (12:45)
[2018-05-05] MEDS ORDERED: Warfarin Sodium 2.5 MG TAB PO SCH ×2 (13:26→17:00)
--- NOTE | 2018-05-05 15:51 | PDOC.PN ---
- Subjective Encounter Start Date: 05/05/18 Encounter Start Time: 15:00 Mr. Rizvi was seen and discussed with Ms. Bhumika Arce PA-C. I also spoke with and examined the patient today. He was very lethargic yesterday, and had been refusing to go to dialysis. When I came to see him today he was alert. He knows he is in the Hospital but believes he is in [place]. He tells me he is considering starting back on " that dialysis thing". He says the reason he stopped was because he was Hurting all over. He says as long as he is able to talk with friends on the phone, he shlomo like to continue living. I also updated his nephew on the phone as well. Patient was noted to have a UTI, and will start antibiotics. - Objective Resuscitation Status - Order Detail: 05/03/18 03:02 Resuscitation Status Routine Resuscitation Status: DNAR: NO Resuscitation Discussed with: per paper work MAR Reviewed: Yes Vital Signs & Weight: Vital Signs (12 hours) Temp Pulse Resp BP BP Pulse Ox 05/05/18 11:59 96.3 F L 106 H 20 129/53 L 05/05/18 09:57 114/99 H 05/05/18 04:00 98.6 F 100 22 H 90/55 L 93 L Weight Weight 206 lb 1.6 oz I&O: 05/04/18 05/05/18 05/06/18 06:59 06:59 06:59 Intake Total 2420 1012 240 Output Total 10 Balance 2410 1012 240 Result Diagrams: 05/05/18 11:29 05/05/18 04:55 Phys Exam - Physical Examination + coarse breath sounds Cardiovascular: RRR, no significant murmur, no rub Gastrointestinal: soft, non-tender, positive bowel sounds Musculoskeletal: pulses present, edema present Dx/Plan - Plan * as above.
--- NOTE | 2018-05-05 17:41 | PDOC.EVN ---
Event Note - Event Note Event Note: Updated Dr. Og, patient agreeable to resume dialysis. He will be scheduled to have dialysis tomorrow.
[2018-05-05] MEDS: cefTRIAXone\\ROCEPHIN 1 GM in Sodium Chloride 0.9% 100 ML IVPB SCH (18:00)
[2018-05-06 05:35] LABS: #Lymphocytes 0.8 thou/uL (1.20-3.40); #Monocytes 0.4 thou/uL (0.11-0.59); #Neutrophils 6.2 thou/uL (1.40-6.50); %Basophils 0.1 % (0.0-1.0); %Eosinophils 0.3 % (0.0-10.0); %Monocytes 5.4 % (0.0-10.0); %Neutrophils 83.2 % (42.0-75.0); Hemoglobin 8.8 g/dL (14.0-18.0); Mean Corpuscular HGB CONC 32.1 g/dL (32.0-36.0); Mean Corpuscular Hemoglobin 29.9 pg (27.0-31.0); Mean Corpuscular Volume 93.2 fL (78.0-98.0); Mean Platelet Volume 8.6 fL (7.4-10.4); Platelet Count 159 thou/uL (130-400); RBC Distribution Width 15.6 % (11.5-14.5); Red Blood Cell (RBC) Count 2.93 mill/uL (4.70-6.10); White Blood Cell (WBC) Count 7.4 thou/uL (4.8-10.8)
[2018-05-06 05:38] LABS: INR-International Normal Ratio 1.5; Prothrombin Time 18.2 SEC (12.0-14.7)
[2018-05-06 06:01] LABS: ALT (SGPT) Less than 7 U/L (8-55); AST (SGOT) 10 U/L (5-34); Albumin 3.2 g/dL (3.4-4.8); Alkaline Phosphatase 181 U/L (40-150); Anion Gap 16 mmol/L (10-20); BUN (Urea Nitrogen) 34 mg/dL (8.4-25.7); Bilirubin, Total 0.8 mg/dL (0.2-1.2); Calc. Creatinine Clearance 20 mL/min (70-130); Calcium 8.7 mg/dL (7.8-10.44); Carbon Dioxide 23 mmol/L (23-31); Chloride 99 mmol/L (98-107); Estimated GFR-MDRD 17; Globulin 2.7 g/dL (2.4-3.5); Glucose 143 mg/dL (83-110); Protein, Total 5.9 g/dL (5.8-8.1); Sodium 134 mmol/L (136-145)
[2018-05-06] MEDS: Levothyroxine Sodium 88 MCG TAB PO SCH (06:22)
[2018-05-06] MEDS: busPIRone HCl 10 MG TAB PO SCH ×2 (08:18→21:53)
[2018-05-06] MEDS: Torsemide 100 MG TAB PO SCH ×2 (09:00→09:07)
[2018-05-06] MEDS: Carvedilol 6.25 MG TAB PO SCH ×3 (09:00→17:21)
[2018-05-06] MEDS: Hydrocortisone 10 mg Tablet PO SCH ×3 (09:06→21:49)
[2018-05-06] MEDS: Midodrine HCl 5 MG TAB PO SCH ×2 (09:06→10:28)
[2018-05-06] MEDS: Acetaminophen 325 MG TAB PO PRN (09:06)
[2018-05-06] MEDS: Senokot S 8.6-50 MG TAB PO SCH ×3 (09:07→21:49)
--- NOTE | 2018-05-06 14:02 | PDOC.PN ---
- Subjective Encounter Start Date: 05/06/18 Encounter Start Time: 10:30 Subjective: Patient alert and sat upright. Appears comfortable, no distress. -: Denies any complaints. States he is feeling as good as he can expect. -: Wishes to wait to "discuss business" with his nephew. Until then he plans to make no decisions about his care including dialysis. States he knows what he needs to have done. He is unsure if he wants to continue to get treatment. Wants to discuss further with his nephew. - Objective Resuscitation Status - Order Detail: 05/03/18 03:02 Resuscitation Status Routine Resuscitation Status: DNAR: NO Resuscitation Discussed with: per paper work Vital Signs & Weight: Vital Signs (12 hours) Temp Pulse Pulse Resp BP BP Pulse Ox 05/06/18 08:20 98 102/52 L 05/06/18 08:00 97.4 F L 98 16 102/52 L 96 05/06/18 06:25 98.2 F 05/06/18 04:25 97.5 F L 96 12 108/60 98 Weight Weight 210 lb 1.6 oz I&O: 05/05/18 05/06/18 05/07/18 06:59 06:59 06:59 Intake Total 1012 910 Output Total 0 Balance 1012 910 Result Diagrams: 05/06/18 04:40 05/06/18 04:40 Phys Exam - Physical Examination Constitutional: NAD HEENT: PERRLA, sclera anicteric Neck: supple, full ROM Respiratory: clear to auscultation bilateral Cardiovascular: RRR Gastrointestinal: soft, non-tender, positive bowel sounds Psychiatric: normal affect, A&O x 3 Skin: no rash Dx/Plan (1) Dehydration Code(s): E86.0 - DEHYDRATION Status: Acute Comment: Improved, continue IVF' s another 24h then d/c (2) ESRD (end stage renal disease) Code(s): N18.6 - END STAGE RENAL DISEASE Status: Chronic (3) Leg edema Code(s): R60.0 - LOCALIZED EDEMA Status: Acute Comment: continue diureses. Cardio and nephro workup and management in progress. (4) CKD (chronic kidney disease) stage 4, GFR 15-29 ml/min Code(s): N18.4 - CHRONIC KIDNEY DISEASE, STAGE 4 (SEVERE) Status: Chronic (5) Combined systolic and diastolic congestive heart failure Code(s): I50.40 - UNSP COMBINED SYSTOLIC AND DIASTOLIC (CONGESTIVE) HRT FAIL Status: Chronic Qualifiers: Heart failure chronicity: acute on chronic Qualified Code(s): I50.43 - Acute on chronic combined systolic (congestive) and diastolic (congestive) heart failure Comment: continue current management. (6) ESRD (end stage renal disease) on dialysis Code(s): N18.6 - END STAGE RENAL DISEASE; Z99.2 - DEPENDENCE ON RENAL DIALYSIS Status: Chronic - Plan cont current plan of care Dialysis on hold as per patients request. -: Awaiting further discussion with nephew before any treatment decisions. * .
[2018-05-06 14:29] LABS: HBSAg Index 0.36 S/CO (0-0.99); Hep B Surf Ag Non-Reactive S/CO (NonReactive)
--- NOTE | 2018-05-06 15:19 | PRG ---
DATE OF SERVICE: SUBJECTIVE: An 87-year-old gentleman, being seen for end-stage renal disease. The patient denies any nausea, vomiting, or chest pain. OBJECTIVE: See above. Awake, alert, in no acute distress. VITAL SIGNS: Afebrile. Pulse 96, breathing 16, blood pressure 102/63. GENERAL APPEARANCE AND MENTAL STATUS: Fair. HEAD/NECK: Normocephalic. Atraumatic. EYES: EOMI. No deformity. EARS: Clear. No ulcers. NOSE: Intact. No lesions. MOUTH: Clear. No discharge. THROAT: Clear. No exudate. LUNGS: Clear. No crackles. CARDIAC: S1, S2. No rub. ABDOMEN: Benign. Bowel sounds positive. GENITALIA/RECTUM: Shabazz absent. BACK/EXTREMITIES: Edema 0+. NEUROLOGICAL: Alert and motor intact. LABORATORY DATA: Labs show hemoglobin 8.8. Creatinine 4. ASSESSMENT AND PLAN: 1. Stage 6 chronic kidney disease, plan dialysis. 2. Hypertension, stable. 3. Anemia, stable. 4. Medication based on GFR are appropriate. Job ID: [id number]
[2018-05-06] MEDS ORDERED: Heparin 10,000 UNITS/ 10 ML VIAL ONE (15:24)
--- NOTE | 2018-05-06 15:35 | EKG ---
Test Reason : Blood Pressure : / mmHG Vent. Rate : 101 BPM Atrial Rate : 074 BPM P-R Int : 000 ms QRS Dur : 150 ms QT Int : 364 ms P-R-T Axes : 000 033 192 degrees QTc Int : 471 ms Ventricular-paced rhythm Biventricular pacemaker detected Abnormal ECG Confirmed by REBEKA PEREZ ([id number]), acquisition editor KATHRYN ARELLANO ([id number] on 05/06/2018 3:34:55 PM Referred By: Confirmed By:REBEKA PEREZ
[2018-05-06] MEDS: cefTRIAXone\\ROCEPHIN 1 GM in Sodium Chloride 0.9% 100 ML IVPB SCH (17:14)
[2018-05-07] MEDS: Levothyroxine Sodium 88 MCG TAB PO SCH (05:20)
[2018-05-07] MEDS: Acetaminophen 325 MG TAB PO PRN ×2 (05:20→23:46)
[2018-05-07] MEDS: Gabapentin 100 MG CAP PO PRN (05:21)
[2018-05-07 06:25] LABS: #Eosinphils 0.1 thou/uL (0.0-0.7); #Lymphocytes 1.1 thou/uL (1.20-3.40); #Monocytes 0.5 thou/uL (0.11-0.59); #Neutrophils 6.3 thou/uL (1.40-6.50); %Basophils 0.2 % (0.0-1.0); %Eosinophils 0.8 % (0.0-10.0); %Lymphocytes 13.7 % (21.0-51.0); %Monocytes 6.3 % (0.0-10.0); Hemoglobin 9.1 g/dL (14.0-18.0); Mean Corpuscular HGB CONC 28.9 g/dL (32.0-36.0); Mean Corpuscular Hemoglobin 29.6 pg (27.0-31.0); Mean Platelet Volume 9.5 fL (7.4-10.4); Platelet Count 166 thou/uL (130-400); RBC Distribution Width 16.3 % (11.5-14.5); Red Blood Cell (RBC) Count 3.08 mill/uL (4.70-6.10); White Blood Cell (WBC) Count 7.9 thou/uL (4.8-10.8)
[2018-05-07 08:12] LABS: Hemoglobin 9.3 g/dL (14.0-18.0); Platelet Count 153 thou/uL (130-400)
[2018-05-07 08:17] LABS: INR-International Normal Ratio 1.2; Prothrombin Time 15.3 SEC (12.0-14.7)
[2018-05-07 08:31] LABS: Anion Gap 15 mmol/L (10-20); BUN (Urea Nitrogen) 18 mg/dL (8.4-25.7); Calc. Creatinine Clearance 29 mL/min (70-130); Calcium 8.7 mg/dL (7.8-10.44); Carbon Dioxide 24 mmol/L (23-31); Chloride 99 mmol/L (98-107); Estimated GFR-MDRD 26; Glucose 127 mg/dL (83-110); Sodium 134 mmol/L (136-145)
[2018-05-07] MEDS: Carvedilol 6.25 MG TAB PO SCH ×2 (09:05→17:07)
[2018-05-07] MEDS: busPIRone HCl 10 MG TAB PO SCH ×2 (09:06→20:59)
[2018-05-07] MEDS: Hydrocortisone 10 mg Tablet PO SCH ×2 (09:06→20:58)
[2018-05-07] MEDS: Midodrine HCl 5 MG TAB PO SCH (09:06)
[2018-05-07] MEDS: Senokot S 8.6-50 MG TAB PO SCH ×2 (09:07→20:58)
[2018-05-07] MEDS: Torsemide 100 MG TAB PO SCH (09:10)
[2018-05-07] MEDS ORDERED: Warfarin Sodium 5 MG TAB PO SCH ×3 (10:30→17:00)
--- NOTE | 2018-05-07 10:32 | PDOC.PN ---
- Subjective Encounter Start Date: 05/07/18 Encounter Start Time: 10:00 Subjective: Sat comfortably and eating. Complaining of back discomfort due to bed. -: Feeling tired but otherwise no complaints. -: Denies any chest pain or sob. No headaches. No n/v. No abdo pain. - Objective Resuscitation Status - Order Detail: 05/03/18 03:02 Resuscitation Status Routine Resuscitation Status: DNAR: NO Resuscitation Discussed with: per paper work Vital Signs & Weight: Vital Signs (12 hours) Temp Pulse Resp BP Pulse Ox 05/07/18 07:34 97.1 F L 105 H 18 107/60 100 05/07/18 04:00 97.6 F 100 20 123/57 L 98 Weight Weight 209 lb 4.8 oz I&O: 05/06/18 05/07/18 05/08/18 06:59 06:59 06:59 Intake Total 910 840 Output Total 0 300 Balance 910 540 Result Diagrams: 05/07/18 07:55 05/07/18 07:55 Phys Exam - Physical Examination Constitutional: NAD HEENT: PERRLA, sclera anicteric Neck: supple, full ROM Respiratory: clear to auscultation bilateral Cardiovascular: RRR Gastrointestinal: soft, non-tender obese Musculoskeletal: pulses present, edema present bliateral lower limb edema, +1 pitting Psychiatric: normal affect, A&O x 3 Dx/Plan (1) Dehydration Code(s): E86.0 - DEHYDRATION Status: Acute Comment: Improved, continue IVF' s another 24h then d/c (2) ESRD (end stage renal disease) Code(s): N18.6 - END STAGE RENAL DISEASE Status: Chronic (3) Leg edema Code(s): R60.0 - LOCALIZED EDEMA Status: Chronic Comment: continue diureses. Cardio and nephro workup and management in progress. (4) CKD (chronic kidney disease) stage 4, GFR 15-29 ml/min Code(s): N18.4 - CHRONIC KIDNEY DISEASE, STAGE 4 (SEVERE) Status: Chronic (5) Combined systolic and diastolic congestive heart failure Code(s): I50.40 - UNSP COMBINED SYSTOLIC AND DIASTOLIC (CONGESTIVE) HRT FAIL Status: Chronic Qualifiers: Heart failure chronicity: acute on chronic Qualified Code(s): I50.43 - Acute on chronic combined systolic (congestive) and diastolic (congestive) heart failure Comment: continue current management. (6) ESRD (end stage renal disease) on dialysis Code(s): N18.6 - END STAGE RENAL DISEASE; Z99.2 - DEPENDENCE ON RENAL DIALYSIS Status: Chronic (7) Chronic a-fib Code(s): I48.2 - CHRONIC ATRIAL FIBRILLATION Status: Acute (8) UTI (urinary tract infection) Status: Acute - Plan cont current plan of care Status post dialysis yesterday. Feeling tired. -: Continue to monitor labs. -: INR - subtherapeutic. Resume Coumadin for Chronic AF. -: For discussion on Wednesday re: hospice or continued treatment. -: Continue abx for UTI (e.coli), Day 3 of Ceftriaxone. * .
--- NOTE | 2018-05-07 10:52 | PRG ---
DATE OF SERVICE: 05/07/2018 SUBJECTIVE: An 87-year-old gentleman being seen for end-stage renal disease. The patient tolerated the ulcer. Deny any nausea, vomiting, or chest pain. OBJECTIVE: CONSTITUTIONAL: On examination, the patient is awake, alert. VITAL SIGNS: Afebrile, pulse 100, breathing is 16, and blood pressure 123/57. GENERAL APPEARANCE AND MENTAL STATUS: Fair. HEAD/NECK: Normocephalic. Atraumatic. EYES: EOMI. No deformity. EARS: Clear. No ulcers. NOSE: Intact. No lesions. MOUTH: Clear. No discharge. THROAT: Clear. No exudate. LUNGS: Clear. No crackles. CARDIAC: S1, S2. No rub. ABDOMEN: Benign. Bowel sounds positive. GENITALIA/RECTUM: Shabazz absent. BACK/EXTREMITIES: Edema 0+. NEUROLOGICAL: Alert and motor intact. LABORATORY DATA: Hemoglobin 9.3. Creatinine 4.3. ASSESSMENT AND PLAN: 1. Stage 6 chronic kidney disease, plan dialysis on Wednesday, Wednesday, and Wednesday. 2. Hypertension, stable. 3. Anemia, stable. 4. Medications based on glomerular filtration rate are appropriate. Job ID: [id number]
[2018-05-07] MEDS: Warfarin Sodium 5 MG TAB PO SCH (12:24)
[2018-05-07] MEDS: cefTRIAXone\\ROCEPHIN 1 GM in Sodium Chloride 0.9% 100 ML IVPB SCH (17:07)
[2018-05-08] MEDS: Levothyroxine Sodium 88 MCG TAB PO SCH (06:02)
[2018-05-08] MEDS: busPIRone HCl 10 MG TAB PO SCH ×2 (09:07→20:28)
[2018-05-08] MEDS: Hydrocortisone 10 mg Tablet PO SCH ×2 (09:07→20:28)
[2018-05-08] MEDS: Carvedilol 6.25 MG TAB PO SCH ×2 (09:07→16:45)
[2018-05-08] MEDS: Midodrine HCl 5 MG TAB PO SCH (09:07)
[2018-05-08] MEDS: Senokot S 8.6-50 MG TAB PO SCH ×2 (09:07→21:15)
[2018-05-08] MEDS: Torsemide 100 MG TAB PO SCH (09:08)
[2018-05-08 09:09] LABS: INR-International Normal Ratio 1.2; Prothrombin Time 15.2 SEC (12.0-14.7)
[2018-05-08] MEDS: Warfarin Sodium 5 MG TAB PO SCH (12:14)
--- NOTE | 2018-05-08 13:58 | PDOC.PN ---
- Subjective Encounter Start Date: 05/08/18 Encounter Start Time: 13:06 Subjective: Patient found yelling out. Wanted help putting up the TV volume. -: SOB as he is slightly distressed. Settled once I helped him. He states he -: often yells to get staff in there as he has no one to talk to. He continues to tolerate food. Feeling tired from yelling. States he is hard of hearing. Per nurse he has been asking staff to "kill him". He told me he wants to hang the remote around his neck. He denies being suicidal. He states it is so he wont forget where it is. Denies any headaches. Afebrile. No chest pain. No abdo pain. Denies nausea or vomiting. - Objective Resuscitation Status - Order Detail: 05/03/18 03:02 Resuscitation Status Routine Resuscitation Status: DNAR: NO Resuscitation Discussed with: per paper work Vital Signs & Weight: Vital Signs (12 hours) Temp Pulse Resp BP Pulse Ox 05/08/18 12:13 98 F 108 H 18 89/55 L 94 L 05/08/18 07:40 96.9 F L 110 H 16 127/59 L 92 L 05/08/18 04:00 97.2 F L 97 20 97/58 L 93 L Weight Weight 204 lb 12.951 oz I&O: 05/07/18 05/08/18 05/09/18 06:59 06:59 06:59 Intake Total 840 1130 Output Total 300 Balance 540 1130 Result Diagrams: 05/07/18 07:55 05/07/18 07:55 Phys Exam - Physical Examination HEENT: PERRLA, oral pharynx no lesions Neck: supple, full ROM Respiratory: clear to auscultation bilateral Cardiovascular: RRR Gastrointestinal: soft, non-tender, no distention, positive bowel sounds Musculoskeletal: edema present Neurological: normal sensation, moves all 4 limbs Psychiatric: normal affect Skin: no rash Deviation from normal: several old bruises, frail skin Dx/Plan (1) Dehydration Code(s): E86.0 - DEHYDRATION Status: Acute Comment: Improved, continue IVF' s another 24h then d/c (2) ESRD (end stage renal disease) Code(s): N18.6 - END STAGE RENAL DISEASE Status: Chronic (3) Leg edema Code(s): R60.0 - LOCALIZED EDEMA Status: Chronic Comment: continue diureses. Cardio and nephro workup and management in progress. (4) CKD (chronic kidney disease) stage 4, GFR 15-29 ml/min Code(s): N18.4 - CHRONIC KIDNEY DISEASE, STAGE 4 (SEVERE) Status: Chronic (5) Combined systolic and diastolic congestive heart failure Code(s): I50.40 - UNSP COMBINED SYSTOLIC AND DIASTOLIC (CONGESTIVE) HRT FAIL Status: Chronic Qualifiers: Heart failure chronicity: acute on chronic Qualified Code(s): I50.43 - Acute on chronic combined systolic (congestive) and diastolic (congestive) heart failure Comment: continue current management. (6) ESRD (end stage renal disease) on dialysis Code(s): N18.6 - END STAGE RENAL DISEASE; Z99.2 - DEPENDENCE ON RENAL DIALYSIS Status: Chronic (7) Chronic a-fib Code(s): I48.2 - CHRONIC ATRIAL FIBRILLATION Status: Acute (8) UTI (urinary tract infection) Status: Acute - Plan Patient distraught due to not finding remote. Settled. -: Feeling tired. -: Further decision regarding Hospice to be made tomorrow. -: Advised to settle down and use call button for help rather than yelling. -: Understands this will exacerbate his breathing. * .
--- NOTE | 2018-05-08 14:09 | PRG ---
DATE OF SERVICE: 05/08/2018 SUBJECTIVE: An 87-year-old gentleman, being seen for end-stage kidney disease. The patient denies any nausea, vomiting, or chest pain. OBJECTIVE: CONSTITUTIONAL: On examination, the patient is awake, alert. VITAL SIGNS: Afebrile, pulse 108, breathing is 16, and blood pressure 127/59. GENERAL APPEARANCE AND MENTAL STATUS: Fair. HEAD/NECK: Normocephalic. Atraumatic. EYES: EOMI. No deformity. EARS: Clear. No ulcers. NOSE: Intact. No lesions. MOUTH: Clear. No discharge. THROAT: Clear. No exudate. LUNGS: Clear. No crackles. CARDIAC: S1, S2. No rub. ABDOMEN: Benign. Bowel sounds positive. GENITALIA/RECTUM: Shabazz absent. BACK/EXTREMITIES: Edema 0+. NEUROLOGICAL: Alert and motor intact. LABORATORY DATA: Labs show hemoglobin 9.3. ASSESSMENT AND PLAN: 1. Stage 6 chronic kidney disease. Plan dialysis tomorrow. 2. Hypertension, stable. 3. Anemia, stable. 4. Medications based on glomerular filtration rate are appropriate. Job ID: [id number]
[2018-05-08] MEDS: cefTRIAXone\\ROCEPHIN 1 GM in Sodium Chloride 0.9% 100 ML IVPB SCH (16:45)
[2018-05-08] MEDS: Acetaminophen 325 MG TAB PO PRN (16:45)
[2018-05-08] MEDS: Acetaminophen/Codeine 30-300mg Tablet PO PRN (23:07)
[2018-05-09] MEDS: Levothyroxine Sodium 88 MCG TAB PO SCH (05:45)
[2018-05-09 08:14] VITALS: TEMP 97.4
[2018-05-09] MEDS: Carvedilol 6.25 MG TAB PO SCH (09:09)
[2018-05-09] MEDS: Senokot S 8.6-50 MG TAB PO SCH (09:10)
[2018-05-09] MEDS: Torsemide 100 MG TAB PO SCH (09:10)
[2018-05-09] MEDS: Hydrocortisone 10 mg Tablet PO SCH (09:11)
[2018-05-09] MEDS: Midodrine HCl 5 MG TAB PO SCH (09:11)
[2018-05-09] MEDS: busPIRone HCl 10 MG TAB PO SCH (09:13)
--- NOTE | 2018-05-09 09:23 | PDOC.PN ---
- Subjective Encounter Start Date: 05/09/18 Encounter Start Time: 09:20 Subjective: Patient visibly short of breath, somewhat confused. Feeling unwell. -: Reports pain but not able to pinpoint where. Somewhat confused. -: States he wants to walk in front of a tram. Refusing treatment/dialysis. Has been expressing that he keeps praying to God to take him but God isnt listening, as per RN. Similar sentiments intermittently through the weekend. I have spoken to his nephew who is well aware of his condiation and current status. He is unable to come due to being 4 hours away in [place]. Is in agreement to move forward with hospice placement. He prefers [facility]. - Objective Resuscitation Status - Order Detail: 05/03/18 03:02 Resuscitation Status Routine Resuscitation Status: DNAR: NO Resuscitation Discussed with: per paper work Vital Signs & Weight: Vital Signs (12 hours) Temp Pulse Resp BP BP Pulse Ox 05/09/18 09:09 73/52 L 05/09/18 08:14 97.4 F L 109 H 22 H 73/52 L 95 05/09/18 04:00 97.5 F L 107 H 18 92/54 L 97 05/09/18 00:00 97.7 F 97 20 91/52 L Weight Weight 210 lb I&O: 05/08/18 05/09/18 05/10/18 06:59 06:59 06:59 Intake Total 1130 1320 Balance 1130 1320 Result Diagrams: 05/07/18 07:55 05/07/18 07:55 Phys Exam - Physical Examination Notably short of breath with labored breathing crackles on right side. tachypneic. Cardiovascular: RRR Gastrointestinal: soft, non-tender obese Deviation from normal: Intermittently confused, able to answer questions appropriately at times Dx/Plan (1) Dehydration Code(s): E86.0 - DEHYDRATION Status: Acute Comment: Improved, continue IVF' s another 24h then d/c (2) ESRD (end stage renal disease) Code(s): N18.6 - END STAGE RENAL DISEASE Status: Chronic (3) Leg edema Code(s): R60.0 - LOCALIZED EDEMA Status: Chronic Comment: continue diureses. Cardio and nephro workup and management in progress. (4) CKD (chronic kidney disease) stage 4, GFR 15-29 ml/min Code(s): N18.4 - CHRONIC KIDNEY DISEASE, STAGE 4 (SEVERE) Status: Chronic (5) Combined systolic and diastolic congestive heart failure Code(s): I50.40 - UNSP COMBINED SYSTOLIC AND DIASTOLIC (CONGESTIVE) HRT FAIL Status: Chronic Qualifiers: Heart failure chronicity: acute on chronic Qualified Code(s): I50.43 - Acute on chronic combined systolic (congestive) and diastolic (congestive) heart failure Comment: continue current management. (6) ESRD (end stage renal disease) on dialysis Code(s): N18.6 - END STAGE RENAL DISEASE; Z99.2 - DEPENDENCE ON RENAL DIALYSIS Status: Chronic (7) Chronic a-fib Code(s): I48.2 - CHRONIC ATRIAL FIBRILLATION Status: Acute (8) UTI (urinary tract infection) Status: Acute - Plan Hypotensive this am. Fluid bolus prescribed. -: Dr. Og has advised no dialysis given low BP. Pt also refusing dialysis. -: Nephew unable to attend but wants to move forward with hospice placement. -: Palliative Care to see for hospice arrangements ([facility]) * .
[2018-05-09] MEDS ORDERED: Sodium Chloride 0.9% 250 ML 200 ML IVPB SCH (09:45)
--- NOTE | 2018-05-09 10:46 | PRG ---
DATE OF SERVICE: 05/09/2018 SUBJECTIVE: An 87-year-old gentleman, being seen for end-stage renal disease. The patient is hypertensive and has severe dyspnea. Blood pressure in the 90s to 70s. The patient is only oriented to person. OBJECTIVE: CONSTITUTIONAL: On examination, the patient is awake, agitated, does not know where he is. VITAL SIGNS: Afebrile, pulse 109, breathing 16, blood pressure 73/52. GENERAL APPEARANCE AND MENTAL STATUS: Fair. HEAD/NECK: Normocephalic. Atraumatic. EYES: EOMI. No deformity. EARS: Clear. No ulcers. NOSE: Intact. No lesions. MOUTH: Clear. No discharge. THROAT: Clear. No exudate. LUNGS: Clear. No crackles. CARDIAC: S1, S2. No rub. ABDOMEN: Benign. Bowel sounds positive. GENITALIA/RECTUM: Shabazz absent. BACK/EXTREMITIES: Edema 0+. NEUROLOGICAL: The patient is confused. SKIN: LYMPHATICS: ASSESSMENT AND RECOMMENDATION: End-stage renal disease, unable to tolerate dialysis due to severe heart failure and possibly other multiorgan failure. Overall, prognosis is poor. The patient has refused dialysis today. No family member has been available. We have called him on multiple occasions. I would recommend palliative care. Hypertension and anemia, stable. Medication based on GFR are appropriate. Prognosis is poor. Job ID: [id number]
[2018-05-09] MEDS ORDERED: Morphine 2 MG/ML SYRINGE SLOW IVP PRN (10:53)
[2018-05-09 11:04] VITALS: BP 99/54
--- NOTE | 2018-05-09 11:51 | PRG ---
DATE OF SERVICE: 05/09/2018 SUBJECTIVE: Discussed case with COLETTE Ivey and discussed with the patient at multidisciplinary conference this morning. Palliative care nurse Mirian has spoken to the patient's family and the decision is made to move forward with hospice consultation with [facility], and the patient is comfort care. I examined the patient. He has temperature 97.4, pulse 109, blood pressure 73/52 , O2 saturation 95% on 2 L. General appearance, the patient is awake and alert. He is having some difficulty with breathing. He wants to get up and sit on the side of the bed. Says he needs to "get off his bed." He would like to have something to help with his breathing. He is wheezing rather diffusely and has some scattered rales. IMPRESSION AND PLAN: I discussed the case with Nephrology this morning. Dr. Feliciano stated the patient is not a candidate for dialysis at this point any further given his persistent hypotension. The patient's family has requested pursuit of hospice and the decision is deferred to them given the patient's underlying dementia. I have gone ahead and ordered some morphine at low dose in order to ease his air hunger. Job ID: [id number] [facility]
[2018-05-09] MEDS ORDERED: Warfarin Sodium 2.5 MG TAB PO SCH (17:00)
--- NOTE | 2018-05-09 20:17 | DIS ---
DATE OF ADMISSION: 05/05/2018 DATE OF DISCHARGE: 05/09/2018 DICTATED ADMISSION DATE: May 03, 2018. CONSULTING PHYSICIANS: 1. Dr. Og of Nephrology. 2. Palliative Care. DISCHARGE DIAGNOSES: 1. Acute on chronic congestive heart failure, diastolic dysfunction. 2. End-stage renal disease, on dialysis. 3. Urinary tract infection. 4. Panhypopituitarism. HOSPITAL COURSE: Mr. Villa is a pleasant 87-year-old man, who presented on May 03, 2018, from the [facility] with chest pain. He was without any symptoms at the time of initial evaluation and admitted for further workup. He was noted to have a white blood count of 13.9. He had a chest x-ray done in the ED that showed no cardiopulmonary disease. He also had a CT of the brain that was negative. This was due to reported altered mental status from his baseline. During his hospital stay, the patient underwent several investigations including an echocardiogram that showed an EF at 30% with moderate mitral regurgitation. He was seen by Dr. Og on 05/04/2018 and at that time, was nonconsentable for dialysis. He was hypotensive due to heart failure. The patient continued to decline with regard to his mental status and became lethargic. A consult was placed for palliative care given the fact that this has been a topic of conversation in the past with regard to hospice placement. His nephew was not here due to being away for meetings. The next day on 05/05/2018, the patient's mental status improved significantly and he was back to eating whereas a day prior, he was not eating or drinking. He was not even swallowing his pills, but simply holding them in his mouth. Therefore, had been placed on n.p.o. Given the fact that he became more alert and was agreeable to resume dialysis, he was placed back on a regular diet and transitioned to hospice and was placed on hold. The patient received dialysis. He began to state he usually feels very poorly after dialysis and no longer wanted to continue that in the future. It was decided upon further discussion with his nephew that they would see how he did over the weekend after completing dialysis, and if his condition deteriorated, they would move forward with hospice placement. Over the weekend, the patient continued eating and drinking. He did become increasingly agitated and on Tuesday, May 08, 2018, began screaming out. He told me he was yelling in order to get the nurses into the room. He often told the nurses to "kill him." He told me he wanted to "walk in front of a tram." The patient expressed feelings of no longer wanting to live and feeling tired. On 05/09/2018, the patient was notably worse with increased labored breathing. He expressed feeling short of breath and feeling tired. He began to be more confused once again. Due to low blood pressure, he received a bolus of fluid and per Dr. Og's recommendations, was no longer to undergo dialysis as planned. The patient was also refusing dialysis as he states that it makes him feel poorly. I contacted the nephew this morning and he stated he was unable to travel and felt that a conversation with Mr. Villa would not be beneficial given his altered mental status. He asked that we proceed with hospice placement, preferably at the [facility]. Arrangements were made with the palliative care team and pillowcase sewer and the patient was transitioned to the inpatient hospice unit. The patient was seen and evaluated by Dr. St. He was in agreement with the plan. He is assisted with ordering morphine at low dose in order to ease the patient's pain. Job ID: [id number]
[2018-05-10] MEDS ORDERED: Warfarin Sodium 5 MG TAB PO SCH (17:00)
== END 2018-05-09 15:14 | disposition hospice, inpatient (51) | DRG 291 ==
LOC: ERS 23:20 → 2NO 05-03 02:00 → INTOOBSV 05-03 02:00 → OBSVTOIN 05-05 17:45
PROVIDERS: ADMIT Internal Medicine; ATTEND Internal Medicine
DX: I13.2 Hypertensive heart and chronic kidney disease with heart failure and with stage 5 chronic kidney disease, or end stage renal disease (principal); N18.6 End stage renal disease; I50.43 Acute on chronic combined systolic (congestive) and diastolic (congestive) heart failure; N39.0 Urinary tract infection, site not specified; Z99.2 Dependence on renal dialysis; D63.1 Anemia in chronic kidney disease; E86.0 Dehydration; Z66 Do not resuscitate; I48.2 Chronic atrial fibrillation; E03.9 Hypothyroidism, unspecified; Z51.5 Encounter for palliative care
CPT/HCPCS: 36415; 70450; 71045; 80048; 80053; 82553; 83605; 84484; 85014; 85018; 85025; 85049; 85610; 85730; 87040; 87077; 87086; 87186; 87340; 87804; 90935; 93005; 93306; 94760; 96360; 96361; G0257; G8981-GP-CM; G8982-GP-CK; G8987-GO-CM; G8988-GO-CM; G8989-GO-CM; G8996-GN-CJ; G8997-GN-CJ; J0696; J1265; J1642; J1644; J2270; J2543; J3370; J3430; J7050; J7070; P9047